=== PATIENT | female | born 1985 | race Caucasian/White ===

== ENCOUNTER 2022-05-26 15:06 | Outpatient (CLI) | payer BC, SELFPAY ==
[2022-05-26 18:54] LABS: Chlamydia DNA Amplified* NOT DETECTED (No Detected); GC DNA Amplified* NOT DETECTED (No Detected)
== END 2022-05-26 15:07 | disposition home or self-care (01) ==
PROVIDERS: PCP Obstetrics & Gynecology; Visit Provider Advanced Practice Midwife
DX: Z34.93 Encounter for supervision of normal pregnancy, unspecified, third trimester (principal); R30.9 Painful micturition, unspecified; Z3A.29 29 weeks gestation of pregnancy
CPT/HCPCS: 87086; 87186; 87491; 87591

== ENCOUNTER 2022-06-01 10:53 | Outpatient (CLI) | payer BC, SELFPAY ==
--- OUTSIDE RECORDS SUMMARY | 2022-06-01 10:56 | XMS_ITS | Encounter Summary ---
:1985 Author Organization [employer] Address [address] [facility] [place] [address] Care Team Providers Name Role Phone Roselyn Marroquin PA-C Primary Care Provider Reason for Visit Reason Comments ROUTINE HEALTH MAINTENANCE Encounter Details Date Type Department Care Team Description 12/06/2017 Office Visit [facility] Juaquin Corona Well ad ult exam (Primary Dx); Medicine Pap smear of cervix reminder not needed forever; [id number]. [address] [address] Tinea versicolor; [place], [place] Tobacco abuse [phone] [phone] Social History Tobacco Use Types Packs/Day Years Used Date Smoking Tobacco: Every Day Cigarettes 0.5 Smokeless Tobacco: Never Alcohol Use Standard Drinks/Week Comments Yes 1 (1 standard drink = 0.6 oz pure alcoho l) 1 monthly Alcohol Habits Answer Date Recorded How often do you have a drink containing alcohol? Not asked How many drinks containing alcohol do you have on a typical Not asked day when you are drinking? How often do you have six or more drinks on one occasion? No t asked Comment: 1 monthly 06/10/2016 Sex Assigned at Date Recorded Not on file documented as of this encounter Last Filed Vital Signs Vital Sign Reading Time Taken Comments Blood Pressure 110/62 12/06/2017 9:54 AM TRADE SPECIALIST Pulse 88 12/06/2017 9:54 AM TRADE SPECIALIST Temperature - - Respiratory Rate - - Oxygen Saturation - - Inhaled Oxygen Concentration - - Weight 55.4 kg (122 lb 1.6 oz) 12/06/2017 9:54 AM TRADE SPECIALIST Height 165.7 cm (5' 5.25) 12/06/2017 9:54 AM TRADE SPECIALIST Body Mass Index 20.16 12/06/2017 9:54 AM TRADE SPECIALIST documented in this encounter Progress Notes Sonia Alexander RN - 12/19/2017 12:12 PM CST See telephone encounter initiated 12/19/2017 to notify patient of results. E SPECIALIST Juaquin Corona MD - 12/06/2017 10:00 AM CST Subjective: Betty Tai is a 32 y.o. female and is here for a comprehensive physical exam. The patient reports no problems History: Regular, interested in becoming . Patient's medications, allergies, past medical, surgical, social and family histories were reviewed and updated as appropriate. Do you take any herbs or supplements that were not prescribed by a doctor? no Are you taking calcium supplements? no Are you taking aspirin daily? no Review of Systems Do you have pain that bothers you in your daily life? no A comprehensive review of systems was negative. Objective: General Appearance: Alert, cooperative, no distress, appears stated age Head: Normocephalic, without obvious abnormality, atraumatic Eyes: PERRL, conjunctiva/corneas clear, EOM's intact, fundi benign, both eyes Ears: Normal TM's and external ear canals, both ears Nose: Nares normal, septum midline, mucosa normal, no drainage or sinus tenderness Throat: Lips, mucosa, and tongue normal; teeth and gums normal Neck: Supple, symmetrical, trachea midline, no adenopathy; thyroid: no enlargement/tenderness/nodules; no carotid bruit or JVD Back: Symmetric, no curvature, ROM normal, no CVA tenderness Lungs: Clear to auscultation bilaterally, respirations unlabored Chest Wall: No tenderness or deformity Heart: Regular rate and rhythm, S1 and S2 normal, no murmur, rub or gallop Abdomen: Soft, non-tender, bowel sounds active all four quadrants, no masses, no organomegaly Genitalia: Normal female without lesion, discharge or tenderness. Nurse present for entire exam and pap. Extremities: Extremities normal, atraumatic, no cyanosis or edema Pulses: 2+ and symmetric all extremities Skin: Skin color, texture, turgor normal, tinea versicolor noted. Lymph nodes: Cervical, supraclavicular, and axillary nodes normal Neurologic: CNII-XII intact, normal strength, sensation and reflexes throughout Assessment: Healthy female exam. Plan: 1. ICD-10-CM 1. Well adult exam Z00.00 Glucose Lipid Panel - LDLD If Trig High HPV with 16 18 Genotyping Pap Smear 2. Pap smear of cervix reminder not needed forever Z53.8 Pap Test Order 3. Tinea versicolor B36.0 fluconazole (DIFLUCAN) 150 MG tablet 4. Tobacco abuse ([facility]) Z72.0 nicotine (NICODERMCQ) 14 MG/24HR patch 2. Patient Counseling: --Nutrition: Stressed importance of moderation in sodium/caffeine intake, saturated fat and cholesterol, caloric balance, sufficient intake of fresh fruits, vegetables, fiber, calcium, iron, and 1 mg of folate supplement per day (for females capable of ). --Discussed the issue of estrogen replacement, calcium supplement, and the daily use of baby aspirin. --Exercise: Stressed the importance of regular exercise. --Substance Abuse: Discussed cessation/primary prevention of tobacco, alcohol, or other drug use; driving or other dangerous activities under the influence; availability of treatment for abuse. --Sexuality: Discussed sexually transmitted diseases, partner selection, use of condoms, avoidance of unintended and contraceptive alternatives. --Injury prevention: Discussed safety belts, safety helmets, smoke detector, smoking near bedding orupholstery. --Dental health: Discussed importance of regular tooth brushing, flossing, and dental visits. --Immunizations reviewed. --Discussed benefits of screening colonoscopy. --After hours service discussed with patient 3. Follow up in one year Juaquin Corona MD 9:13 AM 12/07/2017 E SPECIALIST documented in this encounter Plan of Treatment Not on filedocumented as of this encounter Procedures Procedure Name Priority Date/Time Associated Comments Diagnosis PAP TEST ORDER Routine 12/06/2017 10:26 AM Pap smear of cervix Results for this TRADE SPECIALIST reminder not needed procedur e are in forever the results section. HPV WITH 16 18 Routine 12/06/2017 10:26 AM Well adult exam Res ults for this GENOTYPING, TRADE SPECIALIST procedure are i n CERVICAL/ENDOCERVICA the res ults L section. ANATOMICAL PATH Routine 12/06/2017 10:26 AM Well adult exam Re sults for this LIQUID BASED TRADE SPECIALIST procedure are i n the results section. documented in this encounter Results Pap Smear (12/06/2017 10:26 AM TRADE SPECIALIST) Specimen (Source) Anatomical Collection Method Collection Time Re ceived Time Location / / Volume Laterality 12/06/2017 10:26 AM TRADE SPECIALIST Narrative PN SOFT - 12/16/2017 6:26 PM TRADE SPECIALIST FINAL GYNECOLOGICAL CYTOLOGY REPORT Pathology #: [id number] ?Date Obtained: 12/06/2017 ? Date Received: 12/07/2017 INTERPRETATION/RESULTS: Atypical squamous cells, cannot exclude high grade squamous intraepithelial lesion (ASC-H). SPECIMEN ADEQUACY: Satisfactory for Evaluation. ??Endocervi eusebio cells/transformation zone component present. Verified on 12/16/2017 ??by HENRIQUE BUENROSTRO MD (electronic signature) CLINICAL NOTES: ?Abnormal bleeding: No, LMP: [id number], Menstrual status: None ?Apply, Current form of therapy: None apply LIQUID BASED PAP SMEAR SPECIMEN TYPE: ?ROUTINE CERVICAL PAP TEST PLEASE NOTE: The pap smear is a screening test design ed to aid in the detection of cervical cancer and its pre cursor lesions. It is not a diagnostic procedure and kristy uld not be used as the sole means of detecting cervical cancer. Both false-positive and false-negative report s may occur. Performed at [facility], [address] [place] [address] Juaquin Corona MD LAB_1 Performing Organization Address City/State/ZIP Code Phon e Number PN SOFT [address] [place] [address] [phone] (ABNORMAL) HPV with 16 18 Genotyping (12/06/2017 10:26 AM TRADE SPECIALIST) [facility] gist Method Time Signature HPV High Risk Not Detected PN SOFT 16 HPV High Risk Not Detected PN SOFT 18 Other HPV High Detected (A) PN SOFT Risk Not 16/18 Comment: ........................................ ................................. The Manpreet HPV Test is a qualitative in v itro test for the detection of Human Papillomavirus in [facility] patient specimens. ??The test utilizes amplifica tion of target DNA by Polymerase Chain Reaction (PCR) and n ucleic acid hybridization for the detection of 14 hi gh-risk (HR) HPV types. The assay tests for high risk typ es (16, 18, 31, 33, 35, 39, 45, 51, 52, 56, 58, 59, 66 and 6 8). NOTE: This test was developed and its pe rformance characteristics determined by [facility]. It has not been cleared or approved by [facility]. The laboratory is regulated under CLIA as qualified to perform high-complexity testing. This test is used for clinical purposes. It should not be regarded as investigational or fo r research. Specimen Anatomical Collection Method Collection Time Receive d Time (Source) Location / / Volume Laterality 12/06/2017 10:26 12/06/2017 AM TRADE SPECIALIST 10:26 AM TRADE SPECIALIST Narrative PN SOFT - 12/11/2017 1:11 PM TRADE SPECIALIST Performed at [place] [id number] CLIA number [id number] Juaquin Corona MD LAB_1 Performing Organization Address City/State/ZIP Code Phon e Number PN SOFT [address] [place] [address] Pap Test Order (12/06/2017 10:26 AM TRADE SPECIALIST) Analysis [facility] Time Signature Pap Smear Collected PN SOFT Monolayer tracking test Specimen Anatomical Collection Method Collection Time Receive d Time (Source) Location / / Volume Laterality 12/06/2017 10:26 12/07/2017 4:41 AM TRADE SPECIALIST AM TRADE SPECIALIST Narrative PN SOFT - 12/06/2017 10:27 AM TRADE SPECIALIST Performed at [address] [address] CLIA number [id number] Juaquin Corona MD LAB_1 Performing Organization Address City/[facility]/ZIP [facility] Phon e Number PN SOFT [address] [place] [address] Lipid Panel - LDLD If Trig High (12/06/2017) Analysis Performed At Patho logist Time Signature Cholesterol 139 0 - 199 PN SOFT mg/dL Triglycerides 83 4 - 149 PN SOFT mg/dL HDL Cholesterol 52 >39 mg/dL PN SOFT Cholesterol/HDL 2.7 PN SOFT Ratio Screen LDL Calculated 70 19 - 130 PN SOFT mg/dL Non HDL Chol, Calc 87 0 - 130 PN SOFT mg/dL Length Of Fast 10.0 PN SOFT Specimen (Source) Anatomical Collection Method Collection Time Re ceived Time Location / / Volume Laterality 12/06/2017 12/06/2017 11:2 5 AM TRADE SPECIALIST Narrative PN SOFT - 12/06/2017 12:35 PM TRADE SPECIALIST Performed at [facility], [address] [place] [id number] CLIA number [id number] Juaquin Corona MD LAB_1 Performing Organization Address [facility] Phon e Number PN SOFT [address] [place] [address] Glucose (12/06/2017) P athologist Signature Lab Glucose 96 70 - 100 PN SOFT mg/dL Comment: The stated glucose range is for the fast ing state. Non-fasting glucose range is 70-180 mg/d L Specimen (Source) Anatomical Collection Method Collection Time Re ceived Time Location / / Volume Laterality 12/06/2017 12/06/2017 11:2 5 AM TRADE SPECIALIST Narrative PN SOFT - 12/06/2017 12:35 PM TRADE SPECIALIST Performed at [facility], [address] [place] [id number] CLIA number [id number] Juaquin Corona MD LAB_1 Performing Organization Address [facility]/ZIP Code Phon e Number PN SOFT [address] [place] [address] documented in this encounter Visit Diagnoses Diagnosis Well adult exam - Primary Routine general medical examination at a health care facility Pap smear of cervix reminder not needed forever Procedure not carried out for other reas ons Tinea versicolor Pityriasis versicolor Tobacco abuse ([facility]) Tobacco use disorder Well adult exam Routine general medical examination at a health care facility documented in this encounter Care Teams Prop Making Supervisor Relationship Specialty Start Date End Date Roselyn Marroquin PA-C PCP - General Physician Ap Operator 08/09/16 [address] [place] [address] documented as of this encounter
--- OUTSIDE RECORDS SUMMARY | 2022-06-01 10:56 | XMS_ITS | Encounter Summary ---
:1985 Author Organization [facility] Address [address], [place] [address] Care Team Providers Name Role Phone Roselyn Marroquin PA-C Primary Care Provider Reason for Visit Reason Onset Date Comments RESULTS, TEST 08/17/2016 Encounter Details Date Type Department Care Team Description 08/17/2016 Telephone [facility] Roselyn Michael PA-C RESULTS, TEST [address] [address] [place] [address] [place] [address] [phone] (Wo rk) Social History Tobacco Use Types Packs/Day Years Used Date Smoking Tobacco: Every Day Cigarettes 0.5 Alcohol Use Standard Drinks/Week Comments Yes 1 [...] on file documented as of this encounter Nursing Notes Roselyn Marroquin PA-C - 08/30/2016 11:43 AM CST Thanks for the GLENDY. HRK Kellee Hill RN - 08/30/2016 11:20 AM CST Called pt and gave her test results. The patient indicates understanding of these issues and agrees with the plan. Future Appointments Date Time Provider Department Center 09/05/2016 1:00 PM Igor Kaufman MD [facility] PN POE FR CA MIXER OPERATOR Kellee Ramey, RN - 08/17/2016 10:59 AM CDT Pt had appt with Kylah on 08/09/16. Called pt with pap results of ASCUS, HPV+ other, colp indicated. Attempted to call pt, no vmail set up. Will try again documented in this encounter Plan of Treatment Not on filedocumented as of this encounter Visit Diagnoses Not on filedocumented in this encounter Care Teams Bath House Attendant Relationship Specialty Start Date End Date Roselyn Marroquin PA-C PCP - General Physician Crane Crew Supervisor 08/09/16 [address] [place] [address] documented as of this encounter
--- OUTSIDE RECORDS SUMMARY | 2022-06-01 10:56 | XMS_ITS | Encounter Summary ---
:1985 Author Organization [facility] Address [address] [place] [address] Care Team Providers Name Role Phone LopezRoselyn STU Primary Care Provider Reason for Referral Procedure/Equipment (Routine) - Incomplete Specialty Diagnoses / Procedures Referred By Contact Refer red To Contact Diagnoses Acute left ankle pain Aung Saeed PA-C Procedures XR Foot 3+ Views/Ankle 2 Views Series Lt [address] [facility] [address] [place] [address] Referral ID Status Reason Start Date Expiration Date Visits V isits Requested Authorized [id number] Incomplete 05/29/2018 08/28/2019 1 1 Reason for Visit Reason Comments ANKLE PAIN Encounter Details Date Type Department Care Team Description 05/29/2018 Hospital Encounter [place] [facility] Aung Saeed Ac dustin left ankle pain; Esteban Oosrio PA-C Sprain of left ankle, unspecified ligame nt, initial encounter [address] [facility] [address] [place] [address] E [phone] [place] [address] Social History Tobacco Use Types Packs/Day Years [...] Sign Reading Time Taken Comments Blood Pressure 121/81 05/29/2018 6:08 PM CDT Pulse 81 05/29/2018 6:08 PM CDT Temperature 36.8 ??C (98.2 ??F) 05/29/2018 6:08 PM CDT Respiratory Rate 16 05/29/2018 6:08 PM CDT Oxygen Saturation 99% 05/29/2018 6:08 PM CDT Inhaled Oxygen Concentration - - Weight - - Height - - Body Mass Index - - documented in this encounter Medications at Time of Discharge Medication Sig Dispensed Refills Start Date End Date nicotine (NICODERMCQ) 14 Apply 1 Patch to 30 Each 0 12/0608/28/2018 MG/24HR patchIndications: skin every 24 hours. Tobacco abuse ([facility]) . documented as of this encounter ED Notes Aung Saeed PA-C - 05/29/2018 12:00 PM CDT NAME: TELLO TERRELL MR#: [id number] CSN: [id number] AUTHENTICATING CLINICIAN: Aung Saeed PA-C CONFIRM #: [id number] LOC: 520 URGENT CARE PROGRESS NOTE DATE OF VISIT: 05/29/2018 : 1985 SUBJECTIVE: This is a 32-year-old female, presents to clinic today complaining of left ankle pain. She states she originally injured it about a month ago. She was stepping off a curb and rolled it. She states since that time, she feels like she has re- injured it numerous times. Today, she was moving a piece of furniture and it seemed to give out. She is able to ambulate, but it hurts. 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 She denies previous injury. REVIEW OF SYSTEMS: Remainder of review of systems negative. ALLERGIES: None. MEDICATIONS: None. PAST MEDICAL HISTORY: Noncontributory. SOCIAL HISTORY: She is currently a daily smoker. OBJECTIVE: VITAL SIGNS: Temp is 36.8, pulse 81, respirations are 16, blood pressure 121/81. O2 sats are 99% on room air. GENERAL: This is a 32-year-old well-developed, well-nourished female, in no acute distress. She is alert and oriented to person, place, and time. HEENT: Head is normocephalic, atraumatic. Eyes are PERRL. LUNGS: Clear to auscultation in all ramirez. No wheezes, rales, or rhonchi. HEART: Regular rate and rhythm. No murmurs, rubs, or gallops. EXTREMITIES: Examination of the patient's left ankle reveals some mild swelling laterally. She does have good range of motion, but there is some pain with movement. Pulses are intact. Reflexes are intact. IMAGING: An x-ray of the patient's left foot and ankle was obtained, which showed no signs of fracture or dislocation. ASSESSMENT: 1.Left ankle sprain. 2.Left ankle pain. PLAN: Patient was placed in an ankle air cast which she will wear for the next couple weeks. She will rest, ice, and elevate her ankle as needed. She does have some crutches at home she can use if needed. Otherwise, she will follow up with her primary provider with any ongoing or worsening of her symptoms. SSK:JACOBY C: CONFIRM #: [id number] documented in this encounter Plan of Treatment Not on filedocumented as of this encounter Procedures Procedure Name Priority Date/Time Associated Diagnosis Comme nts XR FOOT 3+ STAT 05/29/2018 6:29 PM Acute left ankle Resul ts for this VIEWS/ANKLE 2 VIEWS CDT pain procedur e are in SERIES LT the results section. documented in this encounter Results XR Foot 3+ Views/Ankle 2 Views Series Lt (05/29/2018 6:29 PM CDT) Anatomical Region Laterality Modality Lower Extremity, Foot, Ankle Digital Rad iography Specimen (Source) Anatomical Collection Method Collection Time Re ceived Time Location / / Volume Laterality 05/29/2018 6:21 PM CDT Narrative 05/29/2018 6:43 PM CDT COMPARISON: ??None. FINDINGS: ??5 views of the left foot and ankle. No acute bony abnormalities. Joint spaces are intact. Procedure Note Dave Meza MD - 05/29/2018 COMPARISON: None. FINDINGS: 5 views of the left foot and a nkle. No acute bony abnormalities. Joint spaces are intact. Authorizing Provider Result Elisha LYNCH documented in this encounter Visit Diagnoses Diagnosis Acute left ankle pain Sprain of left ankle, unspecified ligame nt, initial encounter Triage Assessment Note - Albert Gross RN - 05/29/2018 6:05 PM CDT Pt presents with left ankle pain. Pt states original injury was about a month ago, she rolled it while stepping off of a curve. States she has re injured it a couple of times in the past month. Today while moving a dresser her ankle gave out. documented in this encounter Care Teams Manager Talent Acquisition Relationship Specialty Start Date End Date Roselyn Marroquin PA-C PCP - General Physician Animal Rides Manager 08/09/16 [address] [place] [address] documented as of this encounter
--- OUTSIDE RECORDS SUMMARY | 2022-06-01 10:56 | XMS_ITS | Encounter Summary ---
:1985 Author Organization [facility] Address [address] [place] [address] Care Team Providers Name Role Phone Roselyn Marroquin PA-C Primary Care Provider Encounter Details Date Type Department Care Team Description 08/09/2016 Lab Visit [facility] Encounter for screening for lipoid disorders; [address] Screening for diabetes donato keller; [place] [address] Dysmenorrhea; [phone] Metrorrhagia Social History Tobacco Use Types Packs/Day Years [...] on file documented as of this encounter Progress Notes Roselyn Marroquin PA-C - 08/11/2016 7:22 AM CDT Quick Note: Sent letter. HRK documented in this encounter Plan of Treatment Not on filedocumented as of this encounter Procedures Procedure Name Priority Date/Time Associated Diagnosis Comme nts TSH AND FREE T4 Routine 08/09/2016 2:27 PM Dysmenorrhea Results for this (FRT4 IF TSH CDT Metrorrhagia procedure are i n ABNORM) the results section. LIPID PANEL AND Routine 08/09/2016 2:27 PM Encounter for Resul ts for this DIRECT LDL(IF CDT screening for lipoid proced ure are in NEEDED) disorders the results section. COMPLETE BLOOD Routine 08/09/2016 2:27 PM Dysmenorrhea Results for this COUNT-NO DIFF CDT Metrorrhagia procedure are in the results section. GLUCOSE - FASTING > Routine 08/09/2016 2:27 PM Screening for R esults for this 8 HRS FASTING CDT diabetes mellitus procedure are in the results section. documented in this encounter Results TSH And Free T4 (FRT4 If TSH Abnorm) (08/09/2016 2:27 PM CDT) athologist Signature Thyroid 1.30 0.20 - PN SOFT Stimulating 4.50 Hormone uIU/mL Specimen Anatomical Collection Method Collection Time Receive d Time (Source) Location / / Volume Laterality 08/09/2016 2:27 PM 6 6:54 CDT PM CDT Narrative PN SOFT - 08/09/2016 11:28 PM CDT Performed at [place] [address] [place] [address] CLIA number [id number] Roselyn Marroquin PA-C LAB_1 Performing Organization Address City/State/ZIP Code Phon e Number PN SOFT [address] [place] [address] [phone] (ABNORMAL) CBC - Complete Blood Count-No Diff (08/09/2016 2:27 PM CDT) [facility] gist Method Time Signature White Blood Cell 8.8 3.8 - 11.0 PN SOFT Count k/cmm Red Blood Cell 4.63 3.70 - PN SOFT Count 5.20 m/cmm Hemoglobin 15.9 (H) 11.8 - PN SOFT 15.5 g/dL Hematocrit 45.5 35.0 - PN SOFT 46.0 % Mean Corpuscular 98.3 80.0 - PN SOFT Volume 100.0 fL RDW 12.0 11.0 - PN SOFT 15.0 % Platelet Count 175 140 - 450 PN SOFT k/cmm Specimen Anatomical Collection Method Collection Time Receive d Time (Source) Location / / Volume Laterality 08/09/2016 2:27 PM 6 2:27 CDT PM CDT Narrative PN SOFT - 08/09/2016 2:34 PM CDT Performed at [facility], [address] [place] [address] CLIA number [id number] Roselyn Marroquin PA-C LAB_1 Performing Organization Address City/[facility]/ZIP Code Phon e Number PN SOFT [address] [place] [address] Glucose (08/09/2016 2:27 PM CDT) P athologist Signature Lab Glucose 91 60 - 100 PN SOFT mg/dL Specimen Anatomical Collection Method Collection Time Receive d Time (Source) Location / / Volume Laterality 08/09/2016 2:27 PM 6 5:08 CDT PM CDT Narrative PN SOFT - 08/09/2016 5:27 PM CDT Performed at [facility], [address] [place] [address] CLIA number [id number] Roselyn Marroquin PA-C LAB_1 Performing Organization Address [facility] Phon e Number PN SOFT [address] [place] [address] Lipid Panel - LDLD If Trig High (08/09/2016 2:27 PM CDT) Analysis Performed At Patho logist Time Signature Cholesterol 135 0 - 199 PN SOFT mg/dL Triglycerides 95 4 - 149 PN SOFT mg/dL HDL Cholesterol 47 >39 mg/dL PN SOFT Cholesterol/HDL 2.9 PN SOFT Ratio Screen LDL Calculated 69 19 - 130 PN SOFT mg/dL Length Of Fast 15.0 PN SOFT Specimen Anatomical Collection Method Collection Time Receive d Time (Source) Location / / Volume Laterality 08/09/2016 2:27 PM 6 5:08 CDT PM CDT Narrative PN SOFT - 08/09/2016 5:27 PM CDT Performed at [facility], [address] [place] [address] CLIA number [id number] Roselyn Marroquin PA-C LAB_1 Performing Organization Address City/[facility]/ZIP Code Phon e Number PN SOFT [address] [place] [address] [phone] documented in this encounter Visit Diagnoses Diagnosis Encounter for screening for lipoid disor ders Screening for lipoid disorders Screening for diabetes mellitus Dysmenorrhea Metrorrhagia documented in this encounter Care Teams Law Librarian Relationship Specialty Start Date End Date Roselyn Marroquin PA-C PCP - General Physician Marketing Research Analyst 08/09/16 [address] [place] [address] documented as of this encounter
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
--- OUTSIDE RECORDS SUMMARY | 2022-06-01 10:56 | XMS_ITS | Encounter Summary ---
:1985 Author Organization [facility] Address [address] [place] [address] Care Team Providers Name Role Phone Roselyn Marroquin PA-C Primary Care Provider Encounter Details Date Type Department Care Team Description 09/26/2019 Lab Visit [facility] Dysuria; [address] Hematuria, [place] [address] Social History Tobacco Use Types Packs/Day Years [...] on file documented as of this encounter Plan of Treatment Not on filedocumented as of this encounter Procedures Procedure Name Priority Date/Time Associated Diagnosis Comme nts URINE CULTURE Routine 09/26/2019 3:48 PM Dysuria Results for this FLOOR PLAN ADJUSTER Hematuria, procedure are i n microscopic the results section. AUTOMATED URINALYSIS Routine 09/26/2019 3:48 PM Dysuria R esults for this DIPSTICK POCT FLOOR PLAN ADJUSTER procedure are in the results section. documented in this encounter Results (ABNORMAL) Urine Culture (09/26/2019 3:48 PM FLOOR PLAN ADJUSTER) Component Value Ref Test Method Analysis Performed Patholog ist Range Time At Signature Urine Growth (A) 09/28/2019 [facility] Culture 10:34 AM HOSPITAL FLOOR PLAN ADJUSTER Urine 10,000 - 50,000 GIANLUCA 09/28/2019 [facility] Culture CFU/mL SENSITIVITY 10:34 AM [facility] Staphylococcus FLOOR PLAN ADJUSTER saprophyticus Specimen Anatomical Collection Method Collection Time Receive d Time (Source) Location / / Volume Laterality Urine URINE SPECIMEN Non-blood 09/26/2019 3:48 PM 019 3:48 COLLECTION, CLEAN Collection / FLOOR PLAN ADJUSTER PM FLOOR PLAN ADJUSTER CATCH / Unknown Unknown [facility] - 09/28/2019 10:[address] Routine testing of urine isolates of Sta phylococcus saprophyticus is not advised, because infections respond to concentrat ions achieved in urine of antimicrobial agents commonly used to treat acute, unc omplicated UTIs (eg, nitrofurantoin, trimethoprim ?? sulfamethoxazole, or a f luoroquinolone). Percy Gutierrez PA-C LAB_1 Performing Organization Address City/State/ZIP Code Phon e Number [address] [address] (ABNORMAL) Urine Dipstick NPT (09/26/2019 3:48 PM FLOOR PLAN ADJUSTER) [facility] gist Method Time Signature Glucose Urine Negative Negative 09/26/2019 [facility] Qual (mg/dL) 3:55 PM FLOOR PLAN ADJUSTER Bilirubin Negative Negative 09/26/2019 [facility] Urine 3:55 PM FLOOR PLAN ADJUSTER Ketones, Negative Negative 09/26/2019 [facility] Urine (mg/dL) 3:55 PM FLOOR PLAN ADJUSTER Specific 1.015 1.005 - 09/26/2019 [facility] [place], 1.030 3:55 PM FLOOR PLAN ADJUSTER Urine Blood, Urine Trace Neg/Trace 09/26/2019 [facility] 3:55 PM FLOOR PLAN ADJUSTER PH Urine 7.0 5.0 - 8.0 09/26/2019 [facility] 3:55 PM FLOOR PLAN ADJUSTER Protein, Trace Neg/Trace 09/26/2019 [facility] Urine Qual 3:55 PM FLOOR PLAN ADJUSTER (mg/dL) Urobilinogen, 0.2 <2.0 09/26/2019 [facility] Urine (EU/dL) 3:55 PM FLOOR PLAN ADJUSTER Nitrite Urine Negative Negative 09/26/2019 [facility] 3:55 PM FLOOR PLAN ADJUSTER Leukocyte Large (A) Negative 09/26/2019 [facility] Est. 3:55 PM FLOOR PLAN ADJUSTER Urine Color Yellow Straw-Yellow 09/26/2019 [facility] 3:55 PM FLOOR PLAN ADJUSTER Urine Clarity Hazy (A) Clear 09/26/2019 [facility] 3:55 PM FLOOR PLAN ADJUSTER Specimen Anatomical Collection Method Collection Time Receive d Time (Source) Location / / Volume Laterality Urine URINE SPECIMEN Non-blood 09/26/2019 3:48 PM 019 3:48 COLLECTION, CLEAN Collection / FLOOR PLAN ADJUSTER PM FLOOR PLAN ADJUSTER CATCH / Unknown Unknown Percy Gutierrez PA-C LAB_1 Performing Organization Address City/State/ZIP Code Phon e Number [facility] [address] [place] [phone] [facility] [address] [place] [address] [address] [phone] documented in this encounter Visit Diagnoses Diagnosis Dysuria Hematuria, microscopic Microscopic hematuria documented in this encounter Care Teams Director Clinical Data Relationship Specialty Start Date End Date Roselyn Marroquin PA-C PCP - General Physician Rib Knitter 08/09/16 [address] [place] [address] documented as of this encounter
--- OUTSIDE RECORDS SUMMARY | 2022-06-01 10:56 | XMS_ITS | Encounter Summary ---
:1984 Author Organization [facility] Address [address], [place] [address] Care Team Providers Name Role Phone Roselyn Marroquin PA-C Primary Care Provider Encounter Details Date Type Department Care Team Description 12/06/2017 Lab Visit [facility] Well adult exam [id number] [place] [address] Social History Tobacco Use [...] documented as of this encounter Progress Notes Juaquin Corona MD - 12/06/2017 1:00 PM CST Letter sent. ALL STRIPPER HELPER documented in this encounter Plan of Treatment Not on filedocumented as of this encounter Procedures Procedure Name Priority Date/Time Associated Diagnosis Comme nts LIPID PANEL AND DIRECT Routine 12/06/2017 Well adult exam Re sults for this LDL(IF NEEDED) procedure are in the results section . GLUCOSE - FASTING > 8 Routine 12/06/2017 Well adult exam Res ults for this HRS FASTING procedure are i n the results section . documented in this encounter Results Lipid Panel - LDLD If Trig High [...] Volume Laterality 12/06/2017 12/06/2017 11:2 5 AM DRYWALL STRIPPER HELPER Narrative PN SOFT - 12/06/2017 12:35 PM DRYWALL STRIPPER HELPER Performed at [facility] [address] [place] [address] CLIA number [id number] Juaquin Corona MD LAB_1 Performing Organization Address City/[facility] Phon e Number PN SOFT [address] [place] [address] Glucose (12/06/2017) P athologist Signature Lab Glucose 96 70 - 100 PN SOFT mg/dL Comment: The stated glucose range is for the fast ing state. Non-fasting glucose range is 70-180 mg/d L Specimen (Source) Anatomical Collection Method Collection Time Re ceived Time Location / / Volume Laterality 12/06/2017 12/06/2017 11:2 5 AM DRYWALL STRIPPER HELPER Narrative PN SOFT - 12/06/2017 12:35 PM DRYWALL STRIPPER HELPER Performed at [facility] [address] [place] [address] CLIA number [id number] Juaquin Corona MD LAB_1 Performing Organization Address City/[facility] Phon e Number PN SOFT [address] [place] [address] documented in this encounter Visit Diagnoses Diagnosis Well adult exam Routine general medical examination at a health care facility documented in this encounter Care Teams Hat Blocking Operator Relationship Specialty Start Date End Date Roselyn Marroquin PA-C PCP - General Physician Seismograph Shooter 08/09/16 [address] [place] [address] documented as of this encounter
--- OUTSIDE RECORDS SUMMARY | 2022-06-01 10:56 | XMS_ITS | Encounter Summary ---
:1985 Author Organization [employer] Address [address], [place] [address] Care Team Providers Name Role Phone LopezRoselyn Shane PERAZA Primary Care Provider Reason for Visit Reason Comments Dental Conversion Legacy EDR to Oxly convers ion Encounter Details Date Type Department Care Team Description 03/29/2017 Dental Conversion [facility] Fatmata Sánchez, Shell Dent[facility] [address] [facility] [address] [place], [place] [address] [place], [place] [phone] [address] Social History Tobacco Use Types Packs/Day Years [...] on file documented as of this encounter Miscellaneous Notes Miscellaneous - Interface, In Edr Dental Conversion - 02/06/2017 12:00 AM CDT 02/06/2017: Provider Portal Checked: checked Miscellaneous - Interface, In Edr Dental Conversion - 01/03/2017 12:00 AM CDT 01/03/2017: Provider Portal Checked: checked documented in this encounter Plan of Treatment Not on filedocumented as of this encounter Visit Diagnoses Not on filedocumented in this encounter Care Teams Annealing Torch Operator Relationship Specialty Start Date End Date Roselyn Marroquin PA-C PCP - General Physician Director Of Email Marketing 08/09/16 [address] [place] [address] documented as of this encounter
--- OUTSIDE RECORDS SUMMARY | 2022-06-01 10:56 | XMS_ITS | Encounter Summary ---
:1985 Author Organization [facility] Address [address] [place] [address] Care Team Providers Name Role Phone LopezRoselyn Shane PERAZA Primary Care Provider Reason for Visit Reason Comments PAP,ABNORMAL ASC-H, HPV+ non 16-18 Encounter Details Date Type Department Care Team Description 12/19/2017 Telephone Cervical Cancer Christine Johnson MD PAP,ABNORMAL (ASC-H, Screening and [address] HPV+ non 16-18) Management [facility] 5th [address] [place] [id number] [place] [address] [phone] Social History Tobacco Use Types Packs/Day Years [...] documented as of this encounter Nursing Notes Sonia Alexander RN - 12/19/2017 12:03 PM CST Pap screening on 12/06/[address] Corona at [facility] Pap result(s): ASC-H, HPV+ (non 16/18), hx abnormal Colposcopy recommended per guidelines. Informed patient of results. Scheduled colposcopy. Patient given verbal preparation instructions forprocedure. Sent follow up [employer] message. Future Appointments Date Time Provider Department Center 12/25/2017 1:00 PM Igor Kaufman MD [facility] PN POE FR Routing to provider as an FYI. [employer] documented in this encounter Plan of Treatment Not on filedocumented as of this encounter Visit Diagnoses Not on filedocumented in this encounter Care Teams Hydration Plant Operator Relationship Specialty Start Date End Date Roselyn Marroquin PA-C PCP - General Physician Deputy District Customs Director 08/09/16 [address] [place] [address] documented as of this encounter
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
--- OUTSIDE RECORDS SUMMARY | 2022-06-01 10:56 | XMS_ITS | Encounter Summary ---
:1985 Author Organization [employer] Address [address] [address] Care Team Providers Name Role Phone LopezVinnyRoselyndonald Lynn PA-C Primary Care Provider Reason for Visit Reason Comments Procedure colposcopy Encounter Details Date Type Department Care Team Description 12/25/2017 Procedure Visit [facility] Igor Kaufman Procedure Services-REPRODUCTION ORDER PROCESSOR MD Tucker (colposcopy) [address], [address] [place] [address] [place], [place] [phone] (Wo rk) [address] [phone] Social History Tobacco Use Types Packs/Day Years [...] documented as of this encounter Progress Notes Igor Kaufman - 12/27/2017 1:47 PM CST Patient notified. Pap/HPV advised in 1 year ER TENDER Igor Kaufman - 12/25/2017 1:00 PM CST Colposcopy Procedure Note Indications: Pap smear 1 months ago showed: ASC cannot exclude high grade lesion (ASCH). The prior pap showed ASCUS with POSITIVE high risk HPV. Both showed HPV 16/18 neg and other HPV+. Prior cervical/vaginal disease: Coplo and bx in 2016 showed no dysplasia. Prior cervical treatment: no treatment. Procedure Details The risks and benefits of the procedure and Verbal informed consent obtained. Speculum placed in vagina and excellent visualization of cervix achieved, cervix swabbed x 3 with acetic acid solution. Findings: Cervix: no visible lesions, no mosaicism, no punctation and no abnormal vasculature; endocervical curettage performed. Vaginal inspection: normal without visible lesions. Vulvar colposcopy: normal mucosa without lesions. Specimens: ECC Complications: none. Plan: Specimens labelled and sent to Pathology. Will base further treatment on Pathology findings. Post biopsy instructions given to patient. ER TENDER documented in this encounter Plan of Treatment Not on filedocumented as of this encounter Procedures Procedure Name Priority Date/Time Associated Comments Diagnosis CLINIC OBTAINED Routine 12/25/2017 1:27 PM Pap smear of cervix Results for this ANATOMICAL PATHOLOGY BEATER TENDER with ASCUS, cannot p rocedure are in exclude HGSIL the results section. SURGICAL PATH, [place] Routine 12/25/2017 6:00 AM [facility] procedure are i n the results section. documented in this encounter Results Clinic Obtained Tissue [TIS] (12/25/2017 1:27 PM BEATER TENDER) athologist Signature CLINIC Received PN SOFT OBTAINED TISSUE Specimen Anatomical Collection Method Collection Time Receive d Time (Source) Location / / Volume Laterality 12/25/2017 1:27 PM 8 6:26 BEATER TENDER PM BEATER TENDER Narrative PN SOFT - 12/25/2017 6:52 PM BEATER TENDER Performed at [facility], [address] [place] [address] CLIA number [id number] Igor Kaufman MD LAB_1 Performing Organization Address City/State/ZIP Code Phon e Number PN SOFT [address] [place] [address] [phone] Pathology Report (12/25/2017 6:00 AM BEATER TENDER) [facility] gist Method Time Signature Path: FINAL SURGICAL PATHOLOGY REPORT PN SOFT Pathology #: [id number] ? Date Obtained: 12/25/2017 ?Date Received: 12/25/2017 DIAGNOSIS: Endocervix, curettage: -No dysplasia or malignancy identified. Comment: Additional tissue levels were examined. The most recent Pap from 12-06-17 (LL [id number]) was interpre griselda as ASC ?? -H and high-risk HPV positive. ??The Pap was reviewed wi th this ?? curettage. ??Continued follow-up per protocol is recomme nded. ?Lashonda HERZOG ? (electronic signatur e) ? 12/27/2017 ??12:2 8 CLINICAL NOTES: ASCUS Pap GROSS DESCRIPTION: Received in formalin labeled ECC is a 1.0 x 0.0 0.3 cm aggr egate of ?? neely-pink tissue admixed with blood-tinged mucous which i s filtered ?? and submitted in one cassette. ? LUNMA MICROSCOPIC DESCRIPTION: The microscopic examination has been performed. Performed at [facility], [address] [facility], [place] [address] Specimen Anatomical Collection Method Collection Time Receive d Time (Source) Location / / Volume Laterality OTHER / Unknown 12/25/2017 6:00 AM 2017 6:00 BEATER TENDER AM BEATER TENDER Igor Kaufman MD LAB_1 Performing Organization Address City/State/ZIP Code Phon e Number PN SOFT [address] [place] [address] documented in this encounter Visit Diagnoses Diagnosis Pap smear of cervix with ASCUS, cannot e xclude HGSIL - Primary Papanicolaou smear of cervix with atypic al squamous cells cannot exclude high grade squamous intraepithelial lesion (ASC-H) documented in this encounter Care Teams Tourist Agent Relationship Specialty Start Date End Date Roselyn Marroquin PA-C PCP - General Physician Manager Pool 08/09/16 [address] [place] [address] documented as of this encounter
--- OUTSIDE RECORDS SUMMARY | 2022-06-01 10:56 | XMS_ITS | Encounter Summary ---
:1985 Author Organization [facility] Address [address] [address] Care Team Providers Name Role Phone LopezVinnyRoselyndonald Lynn PA-C Primary Care Provider Encounter Details Date Type Department Care Team Description 08/09/2016 Lab Visit [facility] Urinary frequency [id number] [place] [address] Social History Tobacco Use [...] Name Priority Date/Time Associated Diagnosis Comme nts UR NPT HOLD FOR STAT 08/09/2016 1:39 PM Urinary frequency R esults for this CULTURE CDT procedure are i n the results section. documented in this encounter Results UR NPT Hold for Culture (08/09/2016 1:39 PM CDT) [facility] Method Time Signature Urine Type URINE:clean PN SOFT cat U BILI Negative Negative PN SOFT Blood Urine Negative Negative PN SOFT Glucose, Negative Neg-30 PN SOFT Qualitative U mg/dL Ketones Negative Negative PN SOFT Leukocyte Negative Negative PN SOFT Esterase Urine Nitrite Urine Negative Negative PN SOFT pH Urine 7.0 5.0 - 8.0 PN SOFT Protein Urine Negative Neg - Trace PN SOFT mg/dL U Specific 1.020 1.005 - PN SOFT [place] 1.030 Urobilinogen Negative Negative PN SOFT Urine Eu/dL Turbidity Clear Clear PN SOFT Color Yellow PN SOFT Specimen Anatomical Collection Method Collection Time Receive d Time (Source) Location / / Volume Laterality 08/09/2016 1:39 PM 6 1:39 CDT PM CDT Narrative PN SOFT - 08/09/2016 1:45 PM CDT Performed at [facility], [address] [place] [address] CLIA number [id number] Roselyn Marroquin PA-C LAB_1 Performing Organization Address City/State/ZIP Code Phon e Number PN SOFT [address] [place] [address] documented in this encounter Visit Diagnoses Diagnosis Urinary frequency documented in this encounter Care Teams Lime Supervisor Relationship Specialty Start Date End Date Roselyn Marroquin PA-C PCP - General Physician Grout Pump Operator 08/09/16 [address] [place] [address] documented as of this encounter
--- OUTSIDE RECORDS SUMMARY | 2022-06-01 10:56 | XMS_ITS | Clinical Summary ---
:1985 [facility] Address [address] [place] [address] Care Team Providers Name Role Phone Roselyn Marroquin PA-C Primary Care Provider Source Comments You are receiving this document as you are listed as the primary care provider,follow-up provider, or the patient has been referred to you for consultation.This is in compliance with the Medicare and Medicaid EHR Incentive Program,which states Providers who transition their patient to another setting of careor provider of care or refers their patient to another provider of care shouldprovide summarycare record for each transition of care or referral. [facility] Allergies No known active allergies Medications Medication Sig Dispensed Refills Start Date End Date Status ALBUterol sulfate HFA Inhale 1-2 Puffs 1 Inhaler 0 08/28/2018 Active 108 (90 Base) MCG/ACT every 4 hours as inhaler needed for Wheezing. Pharmacy may substitute albuterol HFA inhalers based on insurance pseudoephedrine Take 1-2 Tablets 24 Tablet 0 08/28/2018 Active (SUDAFED) 30 MG tablet by mouth every 6 hours as needed for Congestion. ciprofloxacin (CIPRO) Take 1 Tablet by 10 Tablet 0 09/26/2019 Active 500 MG mouth two times a tabletIndications: day. Dysuria, Hematuria, microscopic Active Problems Problem Noted Date Abnormal Pap smear of cervix 12/18/2017 Overview: [facility] Review: History: 2016: ASCUS HPV+ (non 16/18), colp neg 2018: ASC-H HPV+ (non 16/18), colp neg Plan, per ASCCP guidelines: co-test in 1 2 months (12/2018) Dysmenorrhea 08/09/2016 Tobacco abuse 01/04/2015 Immunizations Name Administration Dates Next Due DTP 03/12/1990, 10/29/1989, 03/03/1985, 1984, 1984 Flu Vac Preserv Free (3+yrs) 07/02/2012 HepB Adult (Engerix-B, 20+ yrs, 3 07/02/2012 dose series) Hib (ActHIB) 08/21/1986 Influenza IIV4 (Quadrivalent) 0.5mL 08/25/2020 (10184) MMR 03/02/1986 OPV, Trivalent (Orimune or tOPV) 03/12/1990, 10/29/1989, , 1984, 1984 TDAP (BOOSTRIX) 07/02/2012 Family History Medical History Relation Name Comments Heart Disease Father Age 48 No Known Problems Mother No Known Problems Brother 1 No Known Problems Brother 2 Cancer Maternal Grandfather Mouth cance r, age 60s. Cancer Maternal Grandmother Colon cance r in her 60s. Alzheimer's Paternal Grandfather No Known Problems Paternal Grandmother Relation Name Status Comments Father Mother Alive Brother 1 Alive Brother 2 Alive Maternal Grandfather Maternal Grandmother Paternal Grandfather Paternal Grandmother Alive Social History Tobacco Use Types Packs/Day Years Used Date Smoking Tobacco: Every Day Cigarettes 0.5 10 Smokeless Tobacco: Never Tobacco Cessation: Ready to Quit: No; Co unseling Given: No Alcohol Use Standard Drinks/Week Comments Yes 1 [...] Assigned at Date Recorded Not on file Last Filed Vital Signs Vital Sign Reading Time Taken Comments Blood Pressure 122/82 09/26/2019 3:41 PM SENIOR OPERATIONS ANALYST Pulse 88 09/26/2019 3:41 PM SENIOR OPERATIONS ANALYST Temperature 36.8 ??C (98.2 ??F) 09/26/2019 3:41 PM SENIOR OPERATIONS ANALYST Respiratory Rate 16 09/26/2019 3:41 PM SENIOR OPERATIONS ANALYST Oxygen Saturation 98% 08/28/2018 4:49 PM SENIOR OPERATIONS ANALYST Inhaled Oxygen Concentration - - Weight 52.6 kg (116 lb) 09/26/2019 3:41 PM SENIOR OPERATIONS ANALYST Height 170.2 cm (5' 7) 09/26/2019 3:41 PM SENIOR OPERATIONS ANALYST Body Mass Index 18.17 09/26/2019 3:41 PM SENIOR OPERATIONS ANALYST Plan of Treatment Health Maintenance Due Date Last Done Comments Hep C Screening (Preventive 1984 Services) COVID-19 Vaccine (#1) 02/20/1985 Pneumococcal (1 - PCV) 1990 HepB (2) 07/30/2012 07/02/2012 Pap 12/25/2018 12/25/2017 (Completed), 12/06/2017, 09/05/2016 (Completed), Additional history exists Adult Preventive Visit 12/06/2019 12/06/2017, 08/09/2016 Influenza (#1) 2022 08/25/2020, 07/02/2012 DTaP/Tdap/Td (7 - Tdap) 07/02/2022 07/02/2012, 11/06/1996, 03/12/1990, Additional history exists Zoster/Shingles (1 of 2) 2034 Hib Completed 08/21/1986 IPV (Polio) Completed 03/12/1990, 10/29/1989, 03/03/1985, Additional history exists HIV Screening (Preventive Completed 10/06/2008 Services) HPV Vaccine Aged Out No longer eligib le based on patient 's age to complete this topic HepA Aged Out No longer eligib le based on patient 's age to complete this topic MCV4 Aged Out No longer eligib le based on patient 's age to complete this topic Insurance Payer Benefit Plan Subscriber ID Effective Phone Address Typ e / Group Dates BCBS BCBS PMAP [id number] 2020-Pres [address] Med icaid BLUE ent [id number] ADVANTAGE [place] [address] [facility] PMAP [id number] 2018-Pre Medicaid DENTAL PLAN ADULT DENTAL sent [phone] [id number] (Home) [phone] [address] 6 (Work) [id number] Betty Tai Personal/Famil Self 1985 [phone] (Home) [place], [place] [phone] 6 (Work) Betty Tai Personal/Famil Self 1985 [phone] (Home) [place] [address] CHEYENNE MASSEY Personal/Famil Self 06/26/1956 [phone] (Home) [place] [address] Care Teams Facilities Engineer Relationship Specialty Start Date End Date Roselyn Marroquin PA-C PCP - General Physician Conveyor Weigher Operator 08/09/16 [address] [place] [address]
--- OUTSIDE RECORDS SUMMARY | 2022-06-01 10:56 | XMS_ITS | Encounter Summary ---
:1985 Author [facility] Address [address], [place] [address] Care Team Providers Name Role Phone Roselyn Marroquin PA-C Primary Care Provider Encounter Details Date Type Department Care Team Description 01/18/2019 Orders Only [facility] Mariam Herrera, [facility] Dentistry [address] [facility] [address] [place] [address] [place], [place] [address] [phone] Social History Tobacco Use Types Packs/Day Years [...] on filedocumented in this encounter Care Teams Counseling Aide Relationship Specialty Start Date End Date Roselyn Marroquin PA-C PCP - General Physician Crisis Mental Health Therapist 08/09/16 [address] [place] [address] documented as of this encounter
--- OUTSIDE RECORDS SUMMARY | 2022-06-01 10:56 | XMS_ITS | Encounter Summary ---
:[address] [facility] Address [address] [address] Care Team Providers Name Role Phone Lopez Roselyn Lynn PA-C Primary Care Provider Reason for Visit Procedure/Equipment (Routine) - Incomplete Specialty Diagnoses / Procedures Referred By Contact Refer red To Contact Diagnoses Acute left ankle pain Aung Saeed PA-C Procedures XR Foot 3+ Views/Ankle 2 Views Series Lt [address] [place] [address] Referral ID Status Reason Start Date Expiration Date Visits V isits Requested Authorized [id number] Incomplete 05/29/2018 08/28/2019 1 1 Encounter Details Date Type Department Care Team Description 05/29/2018 Imaging [facility] [address] [place] [address] Social History Tobacco Use Types Packs/Day Years [...] acute bony abnormalities. Joint spaces are intact. Aung Saeed PA-C RAD GD documented in this encounter Visit Diagnoses Not on filedocumented in this encounter Care Teams Assistant Oceanographer Relationship Specialty Start Date End Date Roselyn Marroquin PA-C PCP - General Physician Estate Manager 08/09/16 [address] [place] [address] documented as of this encounter
--- OUTSIDE RECORDS SUMMARY | 2022-06-01 10:56 | XMS_ITS | Encounter Summary ---
:1985 Author Organization [facility] Address [address], [place] [address] Care Team Providers Name Role Phone Roselyn Marroquin PA-C Primary Care Provider Reason for Visit Reason Comments COLPOSCOPY Encounter Details Date Type Department Care Team Description 09/05/2016 Procedure Visit [facility] Igor Stevenson COLPOSCOPY Services-MEDICAL CLAIMS MANAGER MD Tucker [address] [place] [address], [address] [place] [address] [address] [place] [address] [place], [place] [phone] (Wo rk) [address] [phone] Social History Tobacco Use Types Packs/Day Years [...] as of this encounter Progress Notes Igor Stevenson - 09/05/2016 2:20 PM WIRELESS TEAM MEMBER Addended by: IGOR STEVENSON on: 09/05/2016 02:20 PM Modules accepted: Orders LESS TEAM MEMBER Igor Stevenson - 09/05/2016 1:38 PM CST Colposcopy Procedure Note Indications: Pap smear 1 months ago showed: ASCUS with POSITIVE high risk HPV. 16/18 neg, other HPV +. The prior pap showed no abnormalities. Prior cervical/vaginal disease: None. Patient vaguely recalls an abnormal Pap and biopsy in her teens.. Prior cervical treatment: no treatment. Procedure Details The risks and benefits of the procedure and Verbal informed consent obtained. Speculum placed in vagina and excellent visualization of cervix achieved, cervix swabbed x 3 with acetic acid solution. Findings: Cervix: acetowhite lesion(s) noted at 12 o'clock and punctation noted at 12 o'clock; SCJ visualized - lesion at 12 o'clock. Biopsy taken at 12;00 Vaginal inspection: normal without visible lesions. Vulvar colposcopy: normal mucosa without lesions. Specimens: Cervix biopsy from 12:00 Complications: none. Plan: Specimens labelled and sent to Pathology. Will base further treatment on Pathology findings. Post biopsy instructions given to patient. LESS TEAM MEMBER Igor Stevenson - 09/05/2016 1:35 PM WIRELESS TEAM MEMBER Quick Note: Patient notified LESS TEAM MEMBER documented in this encounter Plan of Treatment Not on filedocumented as of this encounter Procedures Procedure Name Priority Date/Time Associated Comments Diagnosis CLINIC OBTAINED Routine 09/05/2016 2:33 PM ASCUS with positive Results for this ANATOMICAL PATHOLOGY WIRELESS TEAM MEMBER high risk HPV proced ure are in cervical the results section. SURGICAL BONY GROVER Routine 09/05/2016 2:33 PM Re sults for this [place] WIRELESS TEAM MEMBER procedure are i n the results section. POCT URINE Routine 09/05/2016 1:15 PM Encounter for Results for this WIRELESS TEAM MEMBER test, procedure ar e in result unknown the results section. documented in this encounter Results Pathology Report (09/05/2016 2:33 PM WIRELESS TEAM MEMBER) Specimen (Source) Anatomical Collection Method Collection Time Re ceived Time Location / / Volume Laterality 09/05/2016 2:33 PM WIRELESS TEAM MEMBER Narrative PN SOFT - 09/07/2016 10:36 AM WIRELESS TEAM MEMBER FINAL SURGICAL PATHOLOGY REPORT Pathology #: [id number] ? Date Obtained: 09/05/2016 ?Date Received: 09/06/2016 DIAGNOSIS: Uterine cervix, biopsy: - Mild chronic cervicitis, involving th e squamocolumnar transition ?? zone. - Negative for dysplasia. ?GEO PABLO MD ? (electronic signature) ? 09/07/2016 ??10:26 CLINICAL NOTES: ASCUS +HPV ORGAN/TISSUE SITE: Cervical biopsy GROSS DESCRIPTION: Received in formalin labeled cervical b iopsy is a 0.3 x 0.2 x 0.1 cm irregular neely-white tissue which is deon tered and submitted in one cassette. ? LUNMA MICROSCOPIC DESCRIPTION: Microscopic examination performed Performed at [facility] [address] [place] [address] Igor Stevenson MD LAB_1 Performing Organization Address [facility] Phon e Number PN SOFT [address] [place] [address] Clinic Obtained Tissue [TIS] (09/05/2016 2:33 PM WIRELESS TEAM MEMBER) P athologist Signature CLINIC Received PN SOFT OBTAINED TISSUE Specimen Anatomical Collection Method Collection Time Receive d Time (Source) Location / / Volume Laterality 09/05/2016 2:33 PM 6 2:32 WIRELESS TEAM MEMBER AM WIRELESS TEAM MEMBER Narrative PN SOFT - 09/06/2016 2:33 AM WIRELESS TEAM MEMBER Performed at [facility], [address] [place] [address] CLIA number [id number] Igor Stevenson MD LAB_1 Performing Organization Address City/[facility] Phon e Number PN SOFT [address] [place] [address] POCT urine (09/05/2016 1:15 PM WIRELESS TEAM MEMBER) [facility] gist Method Time Signature Urine Negative PN EXTERNAL Test - POC LAB-SEE SCANNED DOCUMENT Control Line Yes PN EXTERNAL Present, Clear LAB-SEE Background - SCANNED Internal DOCUMENT control Cartridge Lot# [id number] PN EXTERNAL LAB-SEE SCANNED DOCUMENT Comment: exp: Specimen (Source) Anatomical Collection Method Collection Time Re ceived Time Location / / Volume Laterality Urine specimen 09/05/2016 1:15 PM (specimen) WIRELESS TEAM MEMBER Igor Stevenson MD PN POINT OF CARE TESTS Performing Organization Address City/State/ZIP Code Phon e Number PN EXTERNAL LAB-SEE SCANNED DOCUMENT documented in this encounter Visit Diagnoses Diagnosis ASCUS with positive high risk HPV cervic al - Primary Encounter for test, result unk nown documented in this encounter Care Teams Director Translation Relationship Specialty Start Date End Date Roselyn Marroquin PA-C PCP - General Physician Dining Car Waiter/Waitress 08/09/16 [address] [place] [address] documented as of this encounter
--- OUTSIDE RECORDS SUMMARY | 2022-06-01 10:56 | XMS_ITS | Encounter Summary ---
:1985 Author Organization [facility] Address [address] [place] [address] Care Team Providers Name Role Phone Roselyn Marroquin PA-C Primary Care Provider Reason for Visit Reason Onset Date Comments Medication Questions 08/09/2016 seeking clarity on medication's directions Encounter Details Date Type Department Care Team Description 08/09/2016 Telephone [place] [facility] oRselyn Marroquin, Medicat ion Questions Medicine STU ([place] [address] [address] [facility] medication's directions [place], [place] [address] ) [address] [phone] Social History Tobacco Use Types Packs/Day Years [...] documented as of this encounter Nursing Notes Yuki Carey - 08/09/2016 3:05 PM CDT Fax received from pharm _ after conferring with pcp she was able to confirm pt is to change trans dermal patch once daily- allen notified via phone call documented in this encounter Plan of Treatment Not on filedocumented as of this encounter Visit Diagnoses Not on filedocumented in this encounter Care Teams Language Therapist Relationship Specialty Start Date End Date Roselyn Marroquin PA-C PCP - General Physician Crib Clerk 08/09/16 [address] [place] [address] documented as of this encounter
--- OUTSIDE RECORDS SUMMARY | 2022-06-01 10:56 | XMS_ITS | Encounter Summary ---
:1985 Author Organization [facility] Address [address], [place] [address] Care Team Providers Name Role Phone Lopez Roselyn Lynn PA-C Primary Care Provider Reason for Visit Reason Comments Dysuria frequency fatigue hematuria [id number] Encounter Details Date Type Department Care Team Description 09/26/2019 Office Visit [facility] Percy J, Dysuria (Primary Dx); Medicine PA-C Hematuria, microscopic [address] [address] [place] [address] [phone] Social History Tobacco Use Types Packs/Day Years [...] Comments Blood Pressure 122/82 09/26/2019 3:41 PM CREATIVE ART DIRECTOR Pulse 88 09/26/2019 3:41 PM CREATIVE ART DIRECTOR Temperature 36.8 ??C (98.2 ??F) 09/26/2019 3:41 PM CREATIVE ART DIRECTOR Respiratory Rate 16 09/26/2019 3:41 PM CREATIVE ART DIRECTOR Oxygen Saturation - - Inhaled Oxygen Concentration - - Weight 52.6 kg (116 lb) 09/26/2019 3:41 PM CREATIVE ART DIRECTOR Height 170.2 cm (5' 7) 09/26/2019 3:41 PM CREATIVE ART DIRECTOR Body Mass Index 18.17 09/26/2019 3:41 PM CREATIVE ART DIRECTOR documented in this encounter Patient Instructions Patient InstructionsPercy Gutierrez PA-C - 09/26/2019 3:20 PM CST Plan: 1). Cipro 500mg twice 3x daily for 5 days pending urine culture. 2). Will follow up on urine culture and adjust treatment if needed per results and/or response to treatment. 3). Symptomatic care with fluids, rest, Ibuprofen/Tylenol for pain and fevers. 4). Follow up with acute worsening of symptoms, feeling sicker, or any other concerns. TIVE ART DIRECTOR documented in this encounter Progress Notes Percy Gutierrez PA-C - 09/26/2019 3:20 PM CST Chief Complaint Patient presents with ??? Dysuria frequency fatigue hematuria [id number] History of present illness: Betty Tai is a 34 y.o. female who presents with concern for UTI. Has had a 3 day history of burning with urination/dysuria, increased urinary frequency, and urgency. Has noted some hematuria. Novaginal discharge or other vaginal symptoms. No suprapubic discomfort. No other abdominal pain. No fevers, back pain, nausea or vomiting. No history of UTIs although did fail course of Cephalexin with last UTI. No concern for STI exposure. Has not really taken anything for current symptoms. No other acute issues or concerns. Review of Systems: Constitutional: No fevers, chills, fatigue CHEST: No cough or breathing difficulty. HEART: No chest pain, no edema. ABD: No abdominal pain, nausea, vomiting or diarrhea. : Positive for dysuria, increased frequency, and urgency. No vaginal discharge, or irritation. M/S: No back pain, joint pain or swelling, no muscle pain. NEURO: No headaches, dizziness, weakness SKIN: No rashes or itching, no worrisome skin lesions. PSYCH: No issues with anxiety or depression. Past Medical History: Reviewed and updated in medical record at visit Past Surgical History: Reviewed and updated in medical record at visit Family History: Reviewed and updated in medical record at visit Medications: Reviewed and reconciled in medical record at visit. Allergies: Reviewed and updated in medical record at visit. Physical Exam: Vitals: 09/26/19 1541 BP: 122/82 Pulse: 88 Resp: 16 Temp: 98.2 ??F (36.8 ??C) GEN: Alert, oriented, well nourished/hydrated in NAD EYES: PEERL, EOMI CHEST: Normal effort, CTA. HEART: RRR, No audible murmur, rub or gallop. ABD: No supra-pubic tenderness. No other focal tenderness, rebound, or guarding. No CVAT Vaginal exam deferred. SKIN: Warm and dry without rash M/S: No joint swelling or redness. NEURO: CN 2-12 intact, non-focal exam PSYCH: Alert and oriented. Normal affect. Lab Results Component Value Date Urine Type URINE:clean cat 08/28/2018 Urine Clarity Hazy (A) 09/26/2019 Bilirubin Urine Negative 09/26/2019 Blood, Urine Trace 09/26/2019 Glucose Urine Qual (mg/dL) Negative 09/26/2019 Ketones, Urine (mg/dL) Negative 09/26/2019 Leukocyte Est. Large (A) 09/26/2019 PH Urine 7.0 09/26/2019 Protein, Urine Qual (mg/dL) Trace 09/26/2019 Specific Jackson, Urine 1.015 09/26/2019 Urobilinogen, Urine (EU/dL) 0.2 09/26/2019 Urine WBC >100 (H) 08/28/2018 WBC Clumps Few (A) 08/28/2018 Bacteria Urine Few (A) 08/28/2018 [facility] Trichomonas None Seen 02/18/2016 Diagnosis: Encounter Diagnoses Name Primary? Dysuria Yes ??? Hematuria, microscopic Plan: 1). Given failure of Cephalexin with last UTI will treat with Cipro 500mg twice daily for 5 days pending urine culture. 2). Will follow up on urine culture and adjust treatment if needed per results and/or response to treatment. 3). Symptomatic care with fluids, rest, Ibuprofen/Tylenol for pain and fevers. 4). Follow up with acute worsening of symptoms, feeling sicker, or any other concerns. TIVE ART DIRECTOR documented in this encounter Plan of Treatment Not on filedocumented as of this encounter Results (ABNORMAL) Urine Culture (09/26/2019 3:48 PM CREATIVE ART DIRECTOR) Component Value Ref Test Method Analysis Performed Patholog ist Range Time At Signature Urine Growth (A) 09/28/2019 [facility] Culture 10:34 AM HOSPITAL CREATIVE ART DIRECTOR Urine 10,000 - 50,000 GIANLUCA 09/28/2019 [facility] Culture CFU/mL SENSITIVITY 10:34 AM [facility] Staphylococcus CREATIVE ART DIRECTOR saprophyticus Specimen Anatomical Collection Method Collection Time Receive d Time (Source) Location / / Volume Laterality Urine URINE SPECIMEN Non-blood 09/26/2019 3:48 PM 019 3:48 COLLECTION, CLEAN Collection / CREATIVE ART DIRECTOR PM CREATIVE ART DIRECTOR CATCH / Unknown Unknown Narrative [facility] - 09/28/2019 10:[address] Routine testing of urine isolates of Sta phylococcus saprophyticus is not advised, because infections respond to concentrat ions achieved in urine of antimicrobial agents commonly used to treat acute, unc omplicated UTIs (eg, nitrofurantoin, trimethoprim ?? sulfamethoxazole, or a f luoroquinolone). Percy Gutierrez PA-C LAB_1 Performing Organization Address City/State/ZIP Code Phon e Number [address] [address] (ABNORMAL) Urine Dipstick NPT (09/26/2019 3:48 PM CREATIVE ART DIRECTOR) Patholo gist Method Time Signature Glucose Urine Negative Negative 09/26/2019 [facility] Qual (mg/dL) 3:55 PM CREATIVE ART DIRECTOR Bilirubin Negative Negative 09/26/2019 [facility] Urine 3:55 PM CREATIVE ART DIRECTOR Ketones, Negative Negative 09/26/2019 [facility] Urine (mg/dL) 3:55 PM CREATIVE ART DIRECTOR Specific 1.015 1.005 - 09/26/2019 [facility] Jackson, 1.030 3:55 PM CREATIVE ART DIRECTOR Urine Blood, Urine Trace Neg/Trace 09/26/2019 [facility] 3:55 PM CREATIVE ART DIRECTOR PH Urine 7.0 5.0 - 8.0 09/26/2019 [facility] 3:55 PM CREATIVE ART DIRECTOR Protein, Trace Neg/Trace 09/26/2019 [facility] Urine Qual 3:55 PM CREATIVE ART DIRECTOR (mg/dL) Urobilinogen, 0.2 <2.0 09/26/2019 [facility] Urine (EU/dL) 3:55 PM CREATIVE ART DIRECTOR Nitrite Urine Negative Negative 09/26/2019 [facility] 3:55 PM CREATIVE ART DIRECTOR Leukocyte Large (A) Negative 09/26/2019 [facility] Est. 3:55 PM CREATIVE ART DIRECTOR Urine Color Yellow Straw-Yellow 09/26/2019 [facility] 3:55 PM CREATIVE ART DIRECTOR Urine Clarity Hazy (A) Clear 09/26/2019 [facility] 3:55 PM CREATIVE ART DIRECTOR Specimen Anatomical Collection Method Collection Time Receive d Time (Source) Location / / Volume Laterality Urine URINE SPECIMEN Non-blood 09/26/2019 3:48 PM 019 3:48 COLLECTION, CLEAN Collection / CREATIVE ART DIRECTOR PM CREATIVE ART DIRECTOR CATCH / Unknown Unknown Percy Gutierrez PA-C LAB_1 Performing Organization Address City/State/ZIP Code Phon e Number [facility] [address] [place] [address] [phone] [facility] [address] [place] [address] [phone] documented in this encounter Visit Diagnoses Diagnosis Dysuria - Primary Hematuria, microscopic Microscopic hematuria documented in this encounter Care Teams Chain Builder Loom Control Relationship Specialty Start Date End Date Roselyn Marroquin PA-C PCP - General Physician Machine Finisher 08/09/16 [address] [place] [address] documented as of this encounter
--- OUTSIDE RECORDS SUMMARY | 2022-06-01 10:56 | XMS_ITS | Encounter Summary ---
:1985 Author Organization [facility] Address [address] [place] [address] Care Team Providers Name Role Phone Roselyn Marroquin PA-C Primary Care Provider Encounter Details Date Type Department Care Team Description 08/25/2020 Immunization [place] [address] Flu Need for prophylactic Clinic vaccination and [address] [place] [address] influenza [phone] Social History Tobacco Use Types Packs/Day Years [...] filedocumented as of this encounter Visit Diagnoses Diagnosis Need for prophylactic vaccination and in oculation against influenza documented in this encounter Care Teams Cattle Farmer Relationship Specialty Start Date End Date Roselyn Marroquin PA-C PCP - General Physician Psychiatric Lpn 08/09/[address] [place], [place] [id number] documented as of this encounter
--- OUTSIDE RECORDS SUMMARY | 2022-06-01 10:56 | XMS_ITS | Encounter Summary ---
:1985 Author Organization [employer] Address [address] [place] [address] Care Team Providers Name Role Phone LopezRoselyn Shane PERAZA Primary Care Provider Reason for Visit Reason Comments Dental Hygiene cc none Encounter Details Date Type Department Care Team Description 01/18/2018 Office Visit [facility] Mariam Herrera, [facility] [address] [place] [address] Dental Hygiene (cc Dentistry Yardic, Exam none) [address] [place] [address] Social History Tobacco Use Types Packs/Day Years [...] Sign Reading Time Taken Comments Blood Pressure 112/71 01/18/2018 4:10 PM CDT Pulse 83 01/18/2018 4:10 PM CDT Temperature - - Respiratory Rate - - Oxygen Saturation - - Inhaled Oxygen Concentration - - Weight - - Height - - Body Mass Index - - documented in this encounter Patient Instructions Patient InstructionsYareli Jacob, [facility] - 01/18/2018 4:10 PM CDT Your next hygiene recall is due 07/17/2018 PERSONAL DENTAL RISK REPORT FOR TELLO TERRELL Caries (Tooth Decay) Risk Periodontal (Gum Disease) Risk Oral Cancer Risk Your Risk Level Moderate High Moderate X Low This exam Your Risk Level Moderate High Moderate X Low This exam Your Risk Level Elevated Elevated X Low This exam Your Risk Factors How To Reduce Your Risk Rinse with fluoride rinse once or twice daily at times other than when brushing Application of a concentrated fluoride product to the teeth in the clinic to assist in remineralization Your Risk Factors Use of tobacco; cigarettes/ cigars/pipe How To Reduce Your Risk Consider quitting tobacco habit; participate in a QuitLine program or other means of quitting Return visit with the dental hygienist at 6 month intervals Your Risk Factors Use of tobacco; either smoking or smokeless How To Reduce Your Risk Tello, we look forward to seeing you at your next visit! Thank you for choosing [facility]. documented in this encounter Progress Notes Tomas Peralta DDS - 01/18/2018 4:10 PM CDT RECALL EXAM NOTE No chief complaint on file. Chart Review ?? Reviewed health history, dental history, problem list, periodontal charting and radiographs with the patient Soft tissue, head and neck examination ?? Lips: normal ?? Tongue: normal ?? Palate: normal ?? Throat: normal ?? Floor of the mouth: normal ?? Mucosa: normal ?? Head and neck: normal TMD Evaluation ?? Palpation pain: none ?? Joint sounds: none ?? Pain with range of motion: none Occlusal examination ?? Angle relationship: Right molar: class I Right cuspid: class I Left molar: class I Left cuspid:class I ?? Maxillary midline: within normal limits ?? Mandibular midline: within normal limits ?? Overbite: 3 mm ?? Overjet: 2 mm ?? Crossbite: none ?? Space loss: none ?? Crowding: not evident ?? Occlusion: all teeth ?? Attrition: excessive ?? Erosion: present ant ?? Overall occlusal relationship: stable Cosmetic concerns ?? Patient???s perception: acceptable ?? Dentist???s perception: acceptable Treatment Review and Follow-up ?? Dental Findings: were described to the patient: yes; and they expressed understanding: yes ?? Treatment options and prognosis were discussed: yes ?? Informed patient consent was obtained: yes; after all questions were answered: yes ?? Recommended Recall Examination: 6 months Recall prophy: 6 months ?? Planned Recall Examination: 6 months Recall prophy: 6 months Ely, monitor 15 MO amalg, small chip on MMR but contact closed NTI Tomas Peralta DDS 01/18/2018, 4:36 PM Yareli Jacob, [facility] - 01/18/2018 4:10 PM CDT PROPHY NOTE PROPHY/ASSESSMENT:[id number]::PROPHY NOTE Collaborative Agreement: ?? Patient consents to have charting, radiographs and prophylaxis by the dental hygienist performed with the understanding that this care is not a substitute for examination by a dentist. Presentation ?? Oral Hygiene: normal ?? Plaque: gen; light ?? Calculus:localized; mod; sub-gingival , interproximal and mandibular anterior ?? Stain: none ?? Bleeding:gen ; mod ?? Gingival tissue: normal ?? Mucogingival concerns: absent Activities ?? Treatment included: OHI, hand scale, Cavitorn all teeth, essential selective polishing and flossed all contacts ?? Encourage to floss and quit smoking ?? Pt want 6mo recall. Yareli Jacob 01/18/2018, 4:56 PM Completed dental procedures in this visit There are no completed dental procedures in this visit. documented in this encounter Plan of Treatment Scheduled Orders Name Type Priority Associated Order Schedule Diagnoses PROPHYLAXIS-ADULT Dental Procedures Routine 1 Occ urrences RECALL starting 2019 TOPICAL FLUORIDE Dental Procedures Routine 1 Occu rrences VARNISH starting 2019 PERIODIC ORAL Dental Procedures Routine 1 Occurre nces EVALUATION starting 2019 documented as of this encounter Procedures Procedure Name Priority Date/Time Associated Diagnosis Comme nts TOPICAL FLUORIDE Routine 01/18/2018 4:57 PM Routine health VARNISH CDT maintenance [id number] Routine 01/18/2018 4:57 PM Routine health CDT maintenance PROPHYLAXIS-ADULT Routine 01/18/2018 4:57 PM Routine health RECALL CDT maintenance PERIODIC ORAL Routine 01/18/2018 4:57 PM Routine health EVALUATION CDT maintenance 4 MOD EXISTING Routine 01/05/2017 11:00 PM COMPOSITE FILLING CDT 24 OR EXISTING Routine 01/05/2017 11:00 PM COMPOSITE FILLING CDT 24 OR EXISTING Routine 01/05/2017 11:00 PM COMPOSITE FILLING CDT 31 MO EXISTING Routine 01/05/2017 11:00 PM COMPOSITE FILLING CDT 2 O EXISTING COMPOSITE Routine 01/05/2017 11:00 PM FILLING CDT 8 FI EXISTING COMPOSITE Routine 01/05/2017 11:00 PM FILLING CDT 24 OR EXISTING Routine 01/05/2017 11:00 PM COMPOSITE FILLING CDT 29 DO EXISTING Routine 01/05/2017 11:00 PM COMPOSITE FILLING CDT 5 DO EXISTING COMPOSITE Routine 01/05/2017 11:00 PM FILLING CDT 2 O EXISTING COMPOSITE Routine 01/05/2017 11:00 PM FILLING CDT 30 MO EXISTING Routine 01/05/2017 11:00 PM COMPOSITE FILLING CDT 29 DO EXISTING Routine 01/05/2017 11:00 PM COMPOSITE FILLING CDT 8 FI EXISTING COMPOSITE Routine 01/05/2017 11:00 PM FILLING CDT 4 MOD EXISTING Routine 01/05/2017 11:00 PM COMPOSITE FILLING CDT 5 DO EXISTING COMPOSITE Routine 01/05/2017 11:00 PM FILLING CDT 2 O EXISTING COMPOSITE Routine 01/05/2017 11:00 PM FILLING CDT 2 O EXISTING COMPOSITE Routine 01/05/2017 11:00 PM FILLING CDT 31 MO EXISTING Routine 01/05/2017 11:00 PM COMPOSITE FILLING CDT 30 MO EXISTING Routine 01/05/2017 11:00 PM COMPOSITE FILLING CDT 29 DO EXISTING Routine 01/05/2017 11:00 PM COMPOSITE FILLING CDT 2 O EXISTING COMPOSITE Routine 01/05/2017 11:00 PM FILLING CDT 8 FI EXISTING COMPOSITE Routine 01/05/2017 11:00 PM FILLING CDT 4 MOD EXISTING Routine 01/05/2017 11:00 PM COMPOSITE FILLING CDT 5 DO EXISTING COMPOSITE Routine 01/05/2017 11:00 PM FILLING CDT 2 O EXISTING COMPOSITE Routine 01/05/2017 11:00 PM FILLING CDT 30 MO EXISTING Routine 01/05/2017 11:00 PM COMPOSITE FILLING CDT 31 MO EXISTING Routine 01/05/2017 11:00 PM COMPOSITE FILLING CDT 15 O EXISTING AMALGAM Routine 01/05/2017 11:00 PM FILLING CDT 14 DO EXISTING AMALGAM Routine 01/05/2017 11:00 PM FILLING CDT 15 O EXISTING AMALGAM Routine 01/05/2017 11:00 PM FILLING CDT 19 DO EXISTING AMALGAM Routine 01/05/2017 11:00 PM FILLING CDT 15 O EXISTING AMALGAM Routine 01/05/2017 11:00 PM FILLING CDT 18 MO EXISTING AMALGAM Routine 01/05/2017 11:00 PM FILLING CDT 15 O EXISTING AMALGAM Routine 01/05/2017 11:00 PM FILLING CDT 18 MO EXISTING AMALGAM Routine 01/05/2017 11:00 PM FILLING CDT 19 DO EXISTING AMALGAM Routine 01/05/2017 11:00 PM FILLING CDT 18 MO EXISTING AMALGAM Routine 01/05/2017 11:00 PM FILLING CDT 15 O EXISTING AMALGAM Routine 01/05/2017 11:00 PM FILLING CDT 19 DO EXISTING AMALGAM Routine 01/05/2017 11:00 PM FILLING CDT 15 O EXISTING AMALGAM Routine 01/05/2017 11:00 PM FILLING CDT documented in this encounter Visit Diagnoses Diagnosis Routine health maintenance - Primary Routine general medical examination at a health care facility Caries of dentin Dental caries extending into dentine Tooth fracture Open wound of tooth (broken) (fractured) (due to trauma), without mention of complication Fractured dental worship with loss o f material Fractured dental restorative material wi th loss of material Gingivitis, chronic, non-plaque induced Chronic gingivitis, non-plaque induced documented in this encounter Care Teams Pouch Making Machine Operator Relationship Specialty Start Date End Date Roselyn Marroquin PA-C PCP - General Physician Solder Deposit Operator 08/09/16 [address] [place] [address] documented as of this encounter
--- OUTSIDE RECORDS SUMMARY | 2022-06-01 10:56 | XMS_ITS | Encounter Summary ---
:1985 Author Organization [employer] Address [address], [place] [address] Care Team Providers Name Role Phone LopezVinnyRoselyndonald Lynn PA-C Primary Care Provider Reason for Visit Reason Comments Dysuria couple day, blood in urine a nd when wiping Encounter Details Date Type Department Care Team Description 06/26/2018 Office Visit [facility] Jarett Gutierrez MD Acute cystitis with hematuria (Primary D x); Medicine [address] [place] [address] Viral upper respiratory tract infection; [address] [place], [place] Dysuria; [place] [address] Encounter for test, result unk nown [phone] (Wo rk) Social History Tobacco Use Types [...] Sign Reading Time Taken Comments Blood Pressure 118/72 06/26/2018 1:58 PM CDT Pulse 96 06/26/2018 1:58 PM CDT Temperature 36.9 ??C (98.5 ??F) 06/26/2018 1:58 PM CDT Respiratory Rate - - Oxygen Saturation - - Inhaled Oxygen Concentration - - Weight 55 kg (121 lb 5 oz) 06/26/2018 1:58 PM CDT Height - - Body Mass Index 20.03 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 Urinary Tract Infection in Women: Care Instructions Your Care Instructions A urinary tract infection, or UTI, is a general term for an infection anywhere between the kidneys and the urethra (where urine comes out). Most UTIs are bladder infections. They often cause pain or burning when you urinate. UTIs are caused by bacteria and can be cured with antibiotics. Be sure to complete your treatment sothat the infection goes away. Follow-up care is a elizabeth part of your treatment and safety. Be sure to make and go to all appointments, and call your doctor if you are having problems. It's also a good idea to know your test results and keep a list of the medicines you take. How can you care for yourself at home? ?? Take your antibiotics as directed. Do not stop taking them just because you feel better. You needto take the full course of antibiotics. ?? Drink extra water and other fluids for the next day or two. This may help wash out the bacteria that are causing the infection. (If you have kidney, heart, or liver disease and have to limit fluids,talk with your doctor before you increase your fluid intake.) ?? Avoid drinks that are carbonated or have caffeine. They can irritate the bladder. ?? Urinate often. Try to empty your bladder each time. ?? To relieve pain, take a hot bath or lay a heating pad set on low over your lower belly or genitalarea. Never go to sleep with a heating pad in place. To prevent UTIs ?? Drink plenty of water each day. This helps you urinate often, which clears bacteria from your system. (If you have kidney, heart, or liver disease and have to limit fluids, talk with your doctor before you increase your fluid intake.) ?? Urinate when you need to. ?? Urinate right after you have sex. ?? Change sanitary pads often. ?? Avoid douches, bubble baths, feminine hygiene sprays, and other feminine hygiene products that have deodorants. ?? After going to the bathroom, wipe from front to back. When should you call for help? Call your doctor now or seek immediate medical care if: ? Symptoms such as fever, chills, nausea, or vomiting get worse or appear for the first time. ? You have new pain in your back just below your rib cage. This is called flank pain. ? There is new blood or pus in your urine. ? You have any problems with your antibiotic medicine. ??Watch closely for changes in your health, and be sure to contact your doctor if: ? You are not getting better after taking an antibiotic for 2 days. ? Your symptoms go away but then come back. Where can you learn more? 1. Go to [employer] or [employer]. 2. Enter K848 in the search box. Current as of: March 02, 2017 Content Version: 11.7 ?? [id number] [employer], [employer]. documented in this encounter Progress Notes Jarett Gutierrez MD - 06/26/2018 2:00 PM CDT SUBJECTIVE: This 32-year-old female presents with two-day history acute onset dysuria increased urinary frequency and urgency and gross hematuria. No fevers or chills. Also notes 4-5 day history of acute onset productive cough and sinus symptoms. She is having low abdominal cramping. No new back/flankpain. No nausea or vomiting. Medications: Current Outpatient Prescriptions Medication Sig Dispense Refill ??? nicotine (NICODERMCQ) 14 MG/24HR patch Apply 1 Patch to skin every 24 hours. . (Patient not taking: Reported on 12/25/2017) 30 Each 0 No current facility-administered medications for this visit. Adverse Drug Reactions: Review of patient's allergies indicates no known allergies. Social History: Social History Social History ??? Marital status: Single Spouse name: N/A ??? Number of children: 1 ??? Years of education: N/A Occupational History ??? [employer] [place] Social History Main Topics ??? Smoking status: Current Every Day Smoker Packs/day: 0.50 Years: 10.00 Types: Cigarettes ??? Smokeless tobacco: Never Used ??? Alcohol use 0.6 oz/week 1 Cans of beer per week Comment: 1 monthly ??? Drug use: No ??? Sexual activity: Yes Partners: Male control/ protection: None Other Topics Concern ??? City Water Yes ??? Exercise Yes ??? Seat Belt Yes ??? Special Diet No ??? Weight Concern No Social History Narrative OBJECTIVE: Vital Signs: BP 118/72 (BP Location: Right Arm, BP Cuff Size: Adult Regular) Pulse 96 Temp 98.5 ??F (36.9 ??C) (Oral) Wt 121 lb 5 oz (55 kg) LMP 06/07/2018 (Approximate) BMI 20.03 kg/m2 General: Alert. Appears well. Breathing comfortably. Eyes: Full EOM, PERRLA, without lesions or injection. Ears: Canals and TMs normal. Nose: Patent, without deformity. Septum intact and midline. Neck: Supple, without masses, lymphadenopathy, or tenderness. No thyromegaly or nodules. Throat: Moist mucous membranes without lesions, erythema, or exudate. Respiratory: Normal respiratory effort. Lungs clear with good breath sounds. No CVAT. Abdomen: Soft and nontender without guarding rebound or masses. Normal bowel sounds. No hepatosplenomegaly. No bruits. Neuro: Clear speech. Motor function intact. Gait steady. Skin: No jaundice or acute rash. Office Visit on 06/26/2018 Component Date Value Ref Range Status ??? Urine Type 06/26/2018 URINE:clean cat Final ??? Turbidity 06/26/2018 Hazy* Clear Final ??? U BILI 06/26/2018 Negative Negative Final ??? Blood Urine 06/26/2018 Moderate* Neg - Trace Final ??? Glucose, Qualitative U 06/26/2018 Negative Neg-30 mg/dL Final ??? Ketones 06/26/2018 Negative Negative Final ??? Leukocyte Esterase Urine 06/26/2018 Small* Negative Final ??? Nitrite Urine 06/26/2018 Negative Negative Final ??? pH Urine 06/26/2018 6.5 5.0 - 8.0 Final ??? Protein Urine 06/26/2018 Trace Neg - Trace mg/dL Final ??? U Specific [place] 06/26/2018 1.020 1.005 - 1.030 Final ??? Urobilinogen Urine 06/26/2018 Negative Negative Eu/dL Final ? ? Urine WBC 06/26/2018 >100* 0 - 4 /HPF Final ??? Urine RBC 06/26/2018 25-49* 0 - 2 /HPF Final ??? Bacteria Urine 06/26/2018 Few* /HPF Final Urine culture has been ordered per reflex protocol. ??? Epithelial Cells 06/26/2018 Few /HPF Final ??? Urine Test 06/26/2018 Negative Final ASSESSMENT: 1. Acute cystitis with hematuria. 2. Viral URI. PLAN: Bactrim DS 1 tablet twice a day for 3 days prescribed. Follow-up with PCP if symptoms do not fully resolve with treatment, or if new or worsening symptoms develop. Otherwise return to lab in about 5-7 days for recheck of urinalysis. Symptomatic measures for the viral URI. At the end of the visit she asked about faint darkening of the skin of the face, specifically above the upper lip and in both malar areas. She notes these areas appear to be a little darker compared tothe surrounding skin during the summer and then lightened during the winter. I think this is probably mild case of melasma. documented in this encounter Plan of Treatment Not on filedocumented as of this encounter Procedures Procedure Name Priority Date/Time Associated Comments Diagnosis URINE MICROSCOPIC STAT 06/26/2018 2:05 PM Resu lts for this CDT procedure are i n the results section. URINALYSIS ROUTINE, STAT 06/26/2018 2:05 PM Dysuria Re sults for this MICRO/CULTURE IF POS CDT procedu re are in the results section. URINE CULTURE STAT 06/26/2018 2:05 PM Results for this CDT procedure are i n the results section. TEST STAT 06/26/2018 2:05 PM Results for this (URINE) CDT procedure are i n the results section. documented in this encounter Results Test (Urine) (06/26/2018 2:05 PM CDT) P athologist Signature Urine Negative PN SOFT Test Specimen (Source) Anatomical Collection Method Collection Time Re ceived Time Location / / Volume Laterality Urine: 06/26/2018 2:05 PM CDT Narrative PN SOFT - 06/26/2018 2:44 PM CDT Performed at [facility], [address] [place] [address] CLIA number [id number] Jarett Gutierrez MD LAB_1 Performing Organization Address [facility] Phon e Number PN SOFT [address] [place] [address] (ABNORMAL) Urine Microscopic (06/26/2018 2:05 PM CDT) Analysis Performed At Patho logist Time Signature Urine WBC >100 (H) 0 - 4 /HPF PN SOFT Urine RBC 25-49 (A) 0 - 2 /HPF PN SOFT Bacteria Urine Few (A) /HPF PN SOFT Comment: Urine culture has been ordered per reflex protocol. Epithelial Cells Few /HPF PN SOFT Specimen (Source) Anatomical Collection Method Collection Time Re ceived Time Location / / Volume Laterality Urine: 06/26/2018 2:05 PM CDT Narrative PN SOFT - 06/26/2018 2:19 PM CDT Performed at [facility], [address] [place] [address] CLIA number [id number] Jarett Gutierrez MD LAB_1 Performing Organization Address [facility] Phon e Number PN SOFT [address] [place] [address] (ABNORMAL) Urine Culture (06/26/2018 2:05 PM CDT) Component Value Ref Test Analysis Performed At Patholo gist Range Method Time Signature Source Urine PN SOFT Site PN SOFT Urine Cuture 50 to 100,000 col/ml Staphylococcus saprophyticus 06/27/2018 PN SOFT Routine testing of urine isolates of S. saprophyticus is 8:58 PM CDT NOT advised because infections respond to concentrations achieved in urine of antimicrobial agents commonly used to treat acute, uncomplicated urinary tract infections (e.g. nitrofurantoin, trimethoprim +/- sulfamethoxazole or a fluoroquinone). Do not treat asymptomatic bacteriuria in adults per IDSA ?... http://www.idsociety.org/Organ_System/#AsymptomaticBacteriur ia (A) Urine Staphylococcus 06/27/2018 PN SOFT Culture saprophyticus (A) 8:58 PM CDT Organism 50 to 100,000 06/27/2018 PN SOFT Comment col/ml (A) 8:58 PM CDT Specimen (Source) Anatomical Collection Method Collection Time Re ceived Time Location / / Volume Laterality Urine: 06/26/2018 2:05 PM CDT Narrative PN SOFT - 06/27/2018 8:58 PM CDT Performed at [facility], [address] [place] [address], CLIA Number [id number] Jarett Gutierrez MD LAB_1 Performing Organization Address [facility] Phon e Number PN SOFT [address] [place], [place] [address] [phone] (ABNORMAL) Urinalysis Routine, Micro/Culture if Pos (06/26/2018 2:05 PM CDT) [facility] Method Time Signature Urine Type URINE:clean PN SOFT cat Turbidity Hazy (A) Clear PN SOFT U BILI Negative Negative PN SOFT Blood Urine Moderate (A) Neg - Trace PN SOFT Glucose, Negative Neg-30 PN SOFT Qualitative U mg/dL Ketones Negative Negative PN SOFT Leukocyte Small (A) Negative PN SOFT Esterase Urine Nitrite Urine Negative Negative PN SOFT pH Urine 6.5 5.0 - 8.0 PN SOFT Protein Urine Trace Neg - Trace PN SOFT mg/dL U Specific 1.020 1.005 - PN SOFT [place] 1.030 Urobilinogen Negative Negative PN SOFT Urine Eu/dL Specimen (Source) Anatomical Collection Method Collection Time Re ceived Time Location / / Volume Laterality Urine: 06/26/2018 2:05 PM CDT Narrative PN SOFT - 06/26/2018 2:11 PM CDT Performed at [facility], [address] [place] [address] CLIA number [id number] Jarett Gutierrez MD LAB_1 Performing Organization Address [facility] Phon e Number PN SOFT [address] [place] [address] [phone] documented in this encounter Visit Diagnoses Diagnosis Acute cystitis with hematuria - Primary Acute cystitis Viral upper respiratory tract infection Acute upper respiratory infections of un specified site Dysuria Encounter for test, result unk nown documented in this encounter Care Teams Bakery Assistant Relationship Specialty Start Date End Date Roselyn Marroquin PA-C PCP - General Physician Production Tech 08/09/16 [address] [place] [address] documented as of this encounter
--- OUTSIDE RECORDS SUMMARY | 2022-06-01 10:57 | XMS_ITS | Encounter Summary ---
:1985 Author Organization [facility] Address [address] [address] Care Team Providers Name Role Phone Unassigned, Provider Primary Care Provider Unavailable Encounter Details Date Type Department Care Team Description 03/18/2009 Routine Igor Burroughs Obstetrics/[place] [address] [facility] [address] [place] [address] [place] [address] [phone] (Wo rk) Social History Tobacco Use Types Packs/Day Years Used Date Smoking Tobacco: Never Assessed Sex Assigned at Date Recorded Not on file documented as of this encounter Last Filed Vital Signs Vital Sign Reading Time Taken Comments Blood Pressure 112/76 03/18/2009 11:27 AM CDT Pulse - - Temperature - - Respiratory Rate - - Oxygen Saturation - - Inhaled Oxygen Concentration - - Weight 67.6 kg (148 lb 15.8 oz) 03/18/2009 11:27 AM C: 67.6kg CDT Height 165.1 cm (5' 5) 03/18/2009 11:27 AM C: 165.1cm CDT Body Mass Index 24.79 03/18/2009 11:27 AM CDT documented in this encounter Plan of Treatment Not on filedocumented as of this encounter Visit Diagnoses Not on filedocumented in this encounter Care Teams Mount Loader Relationship Specialty Start Date End Date Unassigned, Provider PCP - General 12/01/00 02/17/16 [address] [place] [address] documented as of this encounter
--- OUTSIDE RECORDS SUMMARY | 2022-06-01 10:57 | XMS_ITS | Encounter Summary ---
:1985 [facility] Address [address] [address] Care Team Providers Name Role Phone Needs Pcp, Assignment Primary Care Provider Reason for Visit Reason Comments Cough Vaginal Discharge Encounter Details Date Type Department Care Team Description 02/18/2016 Hospital Encounter [facility] Awilda Trivedi, Acute vaginitis; Care MD Viral URI; [address] [address] [address] Urinary tract infection, site unspecifie d; Drive [place], [place] BV (bacterial vaginosis) [place] [address] [phone] Social History Tobacco Use Types Packs/Day Years Used Date Smoking Tobacco: Never Assessed Sex Assigned at Date Recorded Not on file documented as of this encounter Last Filed Vital Signs Vital Sign Reading Time Taken Comments Blood Pressure 128/84 02/18/2016 2:49 PM CDT Pulse 89 02/18/2016 2:49 PM CDT Temperature 36.4 ??C (97.5 ??F) 02/18/2016 2:49 PM CDT Respiratory Rate 20 02/18/2016 2:49 PM CDT Oxygen Saturation - - Inhaled Oxygen Concentration - - Weight - - Height - - Body Mass Index - - documented in this encounter Medications at Time of Discharge Medication Sig Dispensed Refills Start Date End Date ciprofloxacin (aka CIPRO) Take 1 tablet by 14 tablet 0 01/2102/25/2016 tablet mouth 2 times daily for 7 days. acetaminophen (AKA TYLENOL Take 1-2 tablets [...] PRN. LW Addl Instr:Take with food. metroNIDAZOLE (aka FLAGYL) Take 1 tablet by 14 tablet 0 04/28/2016 tablet mouth 2 times daily. metroNIDAZOLE (FLAGYL) 500 Take 1 tablet by 14 tablet 0 12/06/2017 MG tablet mouth 2 times daily. unknown medication Indications: PN: 0 03/29/2009 08/09/2016 documented as of this encounter ED Notes Awilda Trivedi MD - 02/18/2016 4:35 PM CDT SUBJECTIVE: Betty Tai is a 30 y.o.female who presents with two weeks of URI symptoms, runny nose, productive cough, continues to smoke 1/2 PPD, is using [employer]'s dimetapp and it helps. 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 She has had no fevers with this, has no history respiratory problems. Just 6 your daughter who is well. She is worried about pneumonia. She has been coughing so hard her back hurts. 2nd issue she has vaginal discharge for the last few days, itchy, watery. No concerns about STDs. Norecent antibiotics. She is monogamous, psychoactive, does not use control, not trying to get , they are just careful. In addition, she is expecting her menses today. She has also noticed that her urine has been darker over the last few days. Has no history of liver problems. No itchy skin. Does not use Tylenol. She has been trying to increase her intake of fluids, but she drinks a lot of caffeinated beverages, Past Medical History: Patient Active Problem List Diagnosis ??? Tobacco abuse (HRC) Adverse Drug Reactions: Review of patient's allergies indicates no known allergies. Medications: acetaminophen, benzonatate, ciprofloxacin HCl, ibuprofen, metroNIDAZOLE, and op medications reviewed Family History: History reviewed. No pertinent family history. Social History: History Substance Use Topics ??? Smoking status: Current Every Day Smoker -- 0.50 packs/day Types: Cigarettes ??? Smokeless tobacco: Not on file ??? Alcohol Use: 0.6 oz/week 1 Cans of beer per week Comment: 1 monthly Review of Systems: All systems were reviewed and found to be negative except as noted above. Vital Signs: BP 128/84 mmHg Pulse 89 Temp(Src) 36.4 ??C (97.6 ??F) (Oral) Resp 20 LMP 01/21/2016 (Approximate) OBJECTIVE: General: NAD Skin: No rashes Head: Normocephalic. Eyes: PERRLA, full EOM. External exams normal. Ears: Normal pinnae, canals. TM's normal Nose: Patent, without deformity. Mucosa normal Throat: Moist mucous membranes without lesions, erythema, or exudate. Neck: Supple, without masses, lymphadenopathy or tenderness. Respiratory: Normal respiratory effort. Lungs are clear with good breath sounds. Heart: RR without murmurs, rubs, or gallops. Abdomen: The abdomen was flat, soft and nontender without guarding rebound or masses. Genital exam normal external genitalia, speculum is inserted without difficulty, small amount of white discharge with a little bit of red staining was noted, cervix was closed. Bimanual exam unremarkable Labs: Labs Reviewed LAB URINALYSIS ROUTINE(MICRO IF POS) - Abnormal; Notable for the following: Leukocyte Esterase Urine Small (*) All other components within normal limits Narrative: Performed at [facility], [address] [place] [address] CLIA number [id number] LAB WET PREP - Abnormal; Notable for the following: WETPR Clue Cells Moderate (*) All other components within normal limits Narrative: Performed at [facility], [address] [place] [address] CLIA number [id number] LAB URINE MICROSCOPIC - Abnormal; Notable for the following: Bacteria Urine Moderate (*) All other components within normal limits Narrative: Performed at [facility], [address] [place] [address] CLIA number [id number] X-Rays: Xr Chest * Pa And Left Lateral (standard) 02/18/2016 COMPARISON: None. FINDINGS: Two views were obtained. The lungs and costophrenic angles areclear. Heart size and pulmonary vascularity are within normal limits. No pleural effusion. Bony thorax is unremarkable. Medications - No data to display ASSESSMENT: 1. Acute vaginitis 2. Viral URI 3. Urinary tract infection, site unspecified (HRC) 4. BV (bacterial vaginosis) PLAN: Medications Prescribed this Visit Disp Refills Start End metroNIDAZOLE (FLAGYL) 500 mg tablet 14 tablet 0 02/18/2016 Take 1 tablet by mouth 2 times daily. Oral ciprofloxacin HCl (CIPRO) 500 mg tablet 14 tablet 0 02/18/2016 02/25/2016 Take 1 tablet by mouth 2 times daily for 7 days. Oral benzonatate (TESSALON) 100 mg capsule 30 capsule 0 02/18/2016 02/28/2016 Take 1 capsule by mouth every 8 hours for 10 days. Oral Discharge Instructions Bacterial Vaginosis: Care Instructions Your Care Instructions Bacterial vaginosis is a type of vaginal infection. It is caused by excess growth of certain bacteria that are normally found in the vagina. Symptoms can include itching, swelling, pain when you urinate or have sex, and a gong or yellow discharge with a fishy odor. It is not considered an infection that is spread through sexual contact. Although symptoms can be annoying and uncomfortable, bacterial vaginosis does not usually cause other health problems. However, if you have it while you are , it can cause complications. While the infection may go away on its own, most doctors use antibiotics to treat it. You may have been prescribed pills or vaginal cream. With treatment, bacterial vaginosis usually clears up in 5 to 7 days. Follow-up care is a elizabeth part of [...] them just because you feel better. You need to take the full course of antibiotics. ?? Do not eat or drink anything that contains alcohol if you are taking metronidazole (Flagyl). ?? Keep using your medicine if you start your period. Use pads instead of tampons while using a vaginal cream or suppository. Tampons can absorb the medicine. ?? Wear loose cotton clothing. Do not wear nylon and other materials that hold body heat and moisture close to the skin. ?? Do not scratch. Relieve itching with a cold pack or a cool bath. ?? Do not wash your vaginal area more than once a day. Use plain water or a mild, unscented soap. Do not douche. When should you call for help? Watch closely for changes in your health, and be sure to contact your doctor if: ?? You have unexpected vaginal bleeding. ?? You have a fever. ?? You have new or increased pain in your vagina or pelvis. ?? You are not getting better after 1 week. ?? Your symptoms return after you finish the course of your medicine. Where can you learn more? Go to Mlog/Image Searcher and enter X360 in the search box. Current as of: April 22, 2015 Content Version: 108 ?? [id number] [employer], [employer]. Upper Respiratory Infection (Cold): Care Instructions Your Care Instructions An upper respiratory infection, or URI, is an infection of the nose, sinuses, or throat. URIs are spread by coughs, sneezes, and direct contact. The common cold is the most frequent kind of URI. The flu and sinus infections are other kinds of URIs. Almost all URIs are caused by viruses. Antibiotics won't cure them. But you can treat most infections with home care. This may include drinking lots of fluids and taking ubwf-lpg-cubczwq pain medicine. You will probably feel better in 4 to 10 days. The doctor has checked you carefully, but problems can develop later. If you notice any problems or new symptoms, get medical treatment right away. Follow-up care is a elizabeth part of your treatment and safety. Be sure to make and go to all appointments, and call your doctor if you are having problems. It's also a good idea to know your test results and keep a list of the medicines you take. How can you care for yourself at home? ?? To prevent dehydration, drink plenty of fluids, enough so that your urine is light yellow or clear like water. Choose water and other caffeine-free clear liquids until you feel better. If you have kidney, heart, or liver disease and have to limit fluids, talk with your doctor before you increase the amount of fluids you drink. ?? Take an jnkq-efc-ycwntjy pain medicine, such as acetaminophen (Tylenol), ibuprofen (Advil, Motrin), or naproxen (Aleve). Read and follow all instructions on the label. ?? Before you use cough and cold medicines, check the label. These medicines may not be safe for young children or for people with certain health problems. ?? Be careful when taking jlgt-tge-yxibwsr cold or flu medicines and Tylenol at the same time. Many of these medicines have acetaminophen, which is Tylenol. Read the labels to make sure that you are not taking more than the recommended dose. Too much acetaminophen (Tylenol) can be harmful. ?? Get plenty of rest. ?? Do not smoke or allow others to smoke around you. If you need help quitting, talk to your doctor about stop-smoking programs and medicines. These can increase your chances of quitting for good. When should you call for help? Call 911 anytime you think you may need emergency care. For example, call if: ?? You have severe trouble breathing. Call your doctor now or seek immediate medical care if: ?? You seem to be getting much sicker. ?? You have new or worse trouble breathing. ?? You have a new or higher fever. ?? You have a new rash. Watch closely for changes in your health, and be sure to contact your doctor if: ?? You have a new symptom, such as a sore throat, an earache, or sinus pain. ?? You cough more deeply or more often, especially if you notice more mucus or a change in the color of your mucus. ?? You do not get better as expected. Where can you learn more? Go to Mlog/Venuelabsrary and enter K520 in the search box. Current as of: June 11, 2015 Content Version: 108 ?? [id number] [employer], [employer]. RTC p.r.n. documented in this encounter Miscellaneous Notes Medication History - Cade Brannon MD - 02/18/2016 4:35 PM CDT INPATIENT MEDS Encounter Date: 02/18/16 benzonatate (TESSALON) 100 mg capsule Start Date:02/18/16, End Date:02/28/16, Frequency:EVERY 8 HOURS *No Administrations Recorded metroNIDAZOLE (FLAGYL) 500 mg tablet Start Date:02/18/16, End Date:-, Frequency:2 TIMES DAILY *No Administrations Recorded ciprofloxacin HCl (CIPRO) 500 mg tablet Start Date:02/18/16, End Date:02/25/16, Frequency:2 TIMES DAILY *No Administrations Recorded ED AVS Snapshot - Cade Brannon MD - 02/18/2016 4:35 PM CDT Images from the original note were not included. [facility] [address] [facility] [address] Dept: [phone] [email or web address] Betty Tai 02/18/2016 2:51 PM UC Description: Female : 1985 Department: [facility] Thank you for choosing [facility] for your health care visit with Awilda Trivedi MD.We are happy to care for you and provide this summary of your visit. Your primary career and guidance counselor is currently listed as Assignment Needs PCP. HERE IS WHAT YOU NEED TO KNOW To learn how you can take steps to stay as healthy as you can be visit [email or web address] Discharge Instructions Bacterial Vaginosis: Care Instructions Your Care Instructions Bacterial vaginosis is a type of vaginal infection. It is caused by excess growth of certain bacteria that are normally found in the vagina. Symptoms can include itching, swelling, pain when you urinate or have sex, and a gong or yellow discharge with a fishy odor. It is not considered an infection that is spread through sexual contact. Although symptoms can be annoying and uncomfortable, bacterial vaginosis does not usually cause other health problems. However, if you have it while you are , it can cause complications. While the infection may go away on its own, most doctors use antibiotics to treat it. You may have been prescribed pills or vaginal cream. With treatment, bacterial vaginosis usually clears up in 5 to 7 days. Follow-up care is a elizabeth part of [...] take the full course of antibiotics. ?? Do not eat or drink anything that contains alcohol if you are taking metronidazole (Flagyl). ?? Keep using your medicine if you start your period. Use pads instead of tampons while using a vaginal cream or suppository. Tampons can absorb the medicine. ?? Wear loose cotton clothing. Do not wear nylon and other materials that hold body heat and moisture close to the skin. ?? Do not scratch. Relieve itching with a cold pack or a cool bath. ?? Do not wash your vaginal area more than once a day. Use plain water or a mild, unscented soap. Donot douche. When should you call for help? Watch closely for changes in your health, and be sure to contact your doctor if: ?? You have unexpected vaginal bleeding. ?? You have a fever. ?? You have new or increased pain in your vagina or pelvis. ?? You are not getting better after 1 week. ?? Your symptoms return after you finish the course of your medicine. Where can you learn more? Go to Mlog/Venuelabsrary and enter X360 in the search box. Current as of: April 22, 2015 Content Version: 108 ?? [id number] [employer], [facility]. Upper Respiratory Infection (Cold): Care Instructions Your Care Instructions An upper respiratory infection, or URI, is an infection of the nose, sinuses, or throat. URIs are spread by coughs, sneezes, and direct contact. The common cold is the most frequent kind of URI. The flu and sinus infections are other kinds of URIs. Almost all URIs are caused by viruses. Antibiotics won't cure them. But you can treat most infections with home care. This may include drinking lots of fluids and taking cqpz-gng-sjnppfi pain medicine.You will probably feel better in 4 to 10 days. The doctor has checked you carefully, but problems can develop later. If you notice any problems or new symptoms, get medical treatment right away. Follow-up care is a elizabeth part of your treatment and safety. Be sure to make and go to all appointments, and call your doctor if you are having problems. It's also a good idea to know your test results and keep a list of the medicines you take. How can you care for yourself at home? ?? To prevent dehydration, drink plenty of fluids, enough so that your urine is light yellow or clear like water. Choose water and other caffeine-free clear liquids until you feel better. If you have kidney, heart, or liver disease and have to limit fluids, talk with your doctor before you increase the amount of fluids you drink. ?? Take an iqza-cnj-xeffnuj pain medicine, such as acetaminophen (Tylenol), ibuprofen (Advil, Motrin), or naproxen (Aleve). Read and follow all instructions on the label. ?? Before you use cough and cold medicines, check the label. These medicines may not be safe for young children or for people with certain health problems. ?? Be careful when taking uhbr-kpj-nzriwck cold or flu medicines and Tylenol at the same time. Many of these medicines have acetaminophen, which is Tylenol. Read the labels to make sure that you are not taking more than the recommended dose. Too much acetaminophen (Tylenol) can be harmful. ?? Get plenty of rest. ?? Do not smoke or allow others to smoke around you. If you need help quitting, talk to your doctor about stop-smoking programs and medicines. These can increase your chances of quitting for good. When should you call for help? Call 911 anytime you think you may need emergency care. For example, call if: ?? You have severe trouble breathing. Call your doctor now or seek immediate medical care if: ?? You seem to be getting much sicker. ?? You have new or worse trouble breathing. ?? You have a new or higher fever. ?? You have a new rash. Watch closely for changes in your health, and be sure to contact your doctor if: ?? You have a new symptom, such as a sore throat, an earache, or sinus pain. ?? You cough more deeply or more often, especially if you notice more mucus or a change in the colorof your mucus. ?? You do not get better as expected. Where can you learn more? Go to Mlog/Venuelabsrary and enter K520 in the search box. Current as of: June 11, 2015 Content Version: 108 ?? [id number] [employer]. HERE IS WHAT YOU NEED TO DO Call your clinic if: You develop new symptoms Your symptoms worsen unexpectedly You are not improving as expected You have questions about your visit or medications Your to do list Future Orders Complete By Ordering Dept. PHYSICAL THERAPY CONSULT ADULT/PEDS ([facility]) As directed [facility] Scheduling Instructions: Your provider has recommended an appointment with [facility]. You may call [phone] to schedule your appointment. If you prefer, a supervisor money room will contact you within the next 3 business days to assist you in setting up this appointment. This recommended service/s may not be covered by your insurance coverage. To find out your specific benefit coverage, please call the number on your insurance card. HERE IS INFORMATION FROM TODAY'S VISIT Reason for Visit Cough x 2 weeks Vaginal Discharge Reason for Visit History Health issues considered by your clinician today Acute vaginitis Viral URI Urinary tract infection, site unspecified (HRC) BV (bacterial vaginosis) If you had any tests, you will be notified of your abnormal results by your clinic. We Performed the Following Urinalysis Routine(Micro If Pos): Urine Microscopic Wet Prep: XR Chest * PA and Left Lateral (Standard) Results Urinalysis Routine(Micro If Pos): Component Value Standard Range & Units Urine Type Urine:clean cat Turbidity Clear Clear U Bili Negative Negative Blood Urine Negative Negative Glucose, Qualitative U Negative Neg-30 mg/dL Ketones Negative Negative Leukocyte Esterase Urine Small Negative Nitrite Urine Negative Negative pH Urine 7.5 5.0-8.0 Protein Urine Negative Neg - Trace mg/dL U Specific [place] 1.015 1.005 - 1.030 Urobilinogen Urine Negative Negative Eu/dL Wet Prep: Component Value Standard Range & Units WETPR White Blood Cells Moderate None Seen - Moderate WETPR Epithelial Cells Many WETPR Yeast None Seen None Seen - Rare WETPR Trichomonas None Seen None Seen WETPR Clue Cells Moderate None Seen - Few Wet Prep Source Cervix/Vaginal: Urine Microscopic Component Value Standard Range & Units Urine WBC 0-2 0 - 4 /HPF Urine RBC 0-2 0 - 2 /HPF Bacteria Urine Moderate /HPF Epithelial Cells Moderate /HPF Medications administered today None MEDICATIONS As of today's visit, these are your current medications DOSAGE acetaminophen (TYLENOL) 500 mg tablet Take 1-2 tablets by mouth every 4 hours as needed. LW Addl Instr:Maximum 8 tablets/day benzonatate (TESSALON) 100 mg capsule Take 1 capsule by mouth every 8 hours for 10 days. ciprofloxacin HCl (CIPRO) 500 mg tablet Take 1 tablet by mouth 2 times daily for 7 days. ibuprofen (MOTRIN) 800 mg tablet Take 1 tablet by mouth NEEDED PRN. LW Addl Instr:Take with food. metroNIDAZOLE (FLAGYL) 500 mg tablet Take 1 tablet by mouth 2 times daily. op medications reviewed Vital signs from your visit Your Vital Signs Were BP Pulse Temp(Src) Resp Last Period Smoking Status 128/84 mmHg 89 36.4 ??C (97.6 ??F) (Oral) 20 01/21/2016 (Approximate) Current Every Day Smoker Allergies as of 02/18/2016 No Known Allergies Immunization History Reviewed on 01/11/2012 DTP 03/12/1990, 10/29/1989, 03/03/1985, [birth year] HEP B 07/02/2012 Hib (ActHIB) 08/21/1986 INFLUENZA TIV 0.5 ML (36+ MOS) 07/02/2012 MMR 03/02/1986 Oral Polio Vaccine 03/12/1990, 10/29/1989, 03/03/1985, 1985, 1985 TDAP (BOOSTRIX) 07/02/2012 About You Date Of Sex Race Ethnicity Preferred Language 1985 Female White Non- [place]er This document contains confidential information about your health and care. It is provided directlyto you for your personal, private use only. documented in this encounter Plan of Treatment Not on filedocumented as of this encounter Procedures Procedure Name Priority Date/Time Associated Comments Diagnosis XR CHEST 2 VIEWS Routine 02/18/2016 4:16 PM Acute vagini tis Results for this CDT Viral URI procedure are i n the results section. URINE MICROSCOPIC STAT 02/18/2016 3:40 PM Resu lts for this CDT procedure are i n the results section. WET PREP STAT 02/18/2016 3:40 PM Acute vaginit is Results for this CDT Viral URI procedure are i n the results section. URINALYSIS STAT 02/18/2016 3:40 PM Acute vaginit is Results for this ROUTINE(MICRO IF POS) CDT Viral URI proced ure are in the results section. documented in this encounter Results XR Chest 2 Views (02/18/2016 4:16 PM CDT) Anatomical Region Laterality Modality Chest, Lung Other Specimen (Source) Anatomical Location Collection Method / Collectio n Time Received Time / Laterality Volume Narrative 02/18/2016 4:17 PM CDT COMPARISON: ??None. FINDINGS: Two views were obtained. ??The lungs and costophrenic angles are clear. ??Heart size and pulmonary vascularity are within normal limits. ??No pleural effusion. Bony thorax is unremarkable. Procedure Note Juan Antonio Callejas MD - 04/09/2016Fo rmatting of this note might be different from the original. COMPARISON: None. FINDINGS: Two views were obtained. The l ungs and costophrenic angles are clear. Heart size and pulmonary vascularity are within normal limits. No pleural effusion. Bony thorax is unremarkable. Awilda Trivedi MD RAD GD (ABNORMAL) URINE MICROSCOPIC (02/18/2016 3:40 PM CDT) [facility] batterii Method Time Signature Urine WBC 0-2 0 - 4 HP CONVERSION /HPF Urine RBC 0-2 0 - 2 HP CONVERSION /HPF Bacteria Urine Moderate (A) /HPF HP CONVERSIO N Epithelial Moderate /HPF HP CONVERSION Cells Specimen Anatomical Collection Method Collection Time Receive d Time (Source) Location / / Volume Laterality 02/18/2016 3:40 PM 6 3:46 CDT PM CDT Narrative HP CONVERSION - 02/18/2016 4:04 PM CDT Performed at [facility], [address] [place] [address] CLIA number [id number] Awilda Trivedi MD LAB_1 Performing Organization Address City/State/ZIP Code Phon e Number HP CONVERSION (ABNORMAL) WET PREP (02/18/2016 3:40 PM CDT) [facility] batterii Method Time Signature WETPR White Moderate None Seen - HP CONVERSION Blood Cells Moderate WETPR Many HP CONVERSION Epithelial Cells WETPR Yeast None Seen None Seen - HP CONVERSION Rare WETPR None Seen None Seen HP CONVERSION Trichomonas WETPR Clue Moderate (A) None Seen - HP CONVERSION Cells Few Wet Prep Source Cervix/Vagin HP CONVERSI ON al: Specimen Anatomical Collection Method Collection Time Receive d Time (Source) Location / / Volume Laterality 02/18/2016 3:40 PM 6 3:46 CDT PM CDT Narrative HP CONVERSION - 02/18/2016 3:51 PM CDT Performed at [facility], [facility] [address] [place] [address] CLIA number [id number] Awilda Trivedi MD LAB_1 Performing Organization Address [facility] Phon e Number HP CONVERSION (ABNORMAL) URINALYSIS ROUTINE(MICRO IF POS) (02/18/2016 3:40 PM CDT) [facility] Method Time Signature Urine Type Urine:clean HP CONVERSION cat Turbidity Clear Clear HP CONVERSION U BILI Negative Negative HP CONVERSION Blood Urine Negative Negative HP CONVERSION Glucose, Negative Neg-30 HP CONVERSION Qualitative U mg/dL Ketones Negative Negative HP CONVERSION Leukocyte Small (A) Negative HP CONVERSION Esterase Urine Nitrite Urine Negative Negative HP CONVERSION pH Urine 7.5 5.0 - 8.0 HP CONVERSION Protein Urine Negative Neg - Trace HP CONVERSION mg/dL U Specific 1.015 1.005 - HP CONVERSION [place] 1.030 Urobilinogen Negative Negative HP CONVERSION Urine Eu/dL Specimen Anatomical Collection Method Collection Time Receive d Time (Source) Location / / Volume Laterality Urine: 02/18/2016 3:40 PM 6 3:46 CDT PM CDT Narrative HP CONVERSION - 02/18/2016 4:04 PM CDT Performed at [facility], [facility] [address] [place] [address] CLIA number [id number] Awilda Trivedi MD LAB_1 Performing Organization Address [facility] Phon e Number HP CONVERSION documented in this encounter Visit Diagnoses Diagnosis Acute vaginitis Vaginitis and vulvovaginitis, unspecifie d Viral URI Acute upper respiratory infections of un specified site Urinary tract infection, site unspecifie d BV (bacterial vaginosis) Vaginitis and vulvovaginitis, unspecifie d Triage Assessment Note - Marilou Odonnell LPN - 02/18/2016 2:47 PM CDT Pt. here for cough x 2 weeks, over past few days it is worse. Also noticing vaginal discharge, urinary odor, urine is darker than normal. Denies dysuria, hematuria, frequency, urgency. Has back pain but thinks that is more due to the coughing. E CARE NURSE PRACTITIONER documented in this encounter Care Teams Spray Gun Operator Relationship Specialty Start Date End Date Needs Pcp, Assignment PCP - General 02/18/16 08/08/16 [place] [address] documented as of this encounter
--- OUTSIDE RECORDS SUMMARY | 2022-06-01 10:57 | XMS_ITS | Encounter Summary ---
:1985 Author [facility] Address [address] [place] [address] Care Team Providers Name Role Phone Needs Pcp, Assignment Primary Care Provider Reason for Visit Reason Onset Date Comments Other 07/31/2016 Encounter Details Date Type Department Care Team Description 07/31/2016 Telephone CODING DEPT ONLY 5050 Needs Pcp, Assignment Other FAMILY MEDICINE [place] [facility] [address] [place] [address] [address] Social History Tobacco Use Types Packs/Day Years [...] on filedocumented in this encounter Care Teams Health Unit Clerk Relationship Specialty Start Date End Date Needs Pcp, Assignment PCP - General 02/18/16 08/08/16 [place] [address] documented as of this encounter
--- OUTSIDE RECORDS SUMMARY | 2022-06-01 10:57 | XMS_ITS | Encounter Summary ---
:1985 Author Organization [facility] Address [address], [place] [address] Care Team Providers Name Role Phone Unassigned, Provider Primary Care Provider Unavailable Encounter Details Date Type Department Care Team Description 02/21/2011 PN Conversion Only CONVERSION CONVERSION Social History Tobacco Use Types Packs/Day Years Used Date Smoking Tobacco: Never Assessed Sex Assigned at Date Recorded Not on file documented as of this encounter Plan of Treatment Not on filedocumented as of this encounter Visit Diagnoses Not on filedocumented in this encounter Care Teams Browning Processor Relationship Specialty Start Date End Date Unassigned, Provider PCP - General 12/01/00 02/17/16 [address] [place] [address] documented as of this encounter
--- OUTSIDE RECORDS SUMMARY | 2022-06-01 10:57 | XMS_ITS | Encounter Summary ---
:1985 Author Organization [facility] Address [address] [place] [address] Care Team Providers Name Role Phone Unassigned, Provider Primary Care Provider Unavailable Encounter Details Date Type Department Care Team Description 05/04/2009 Office Visit Katty Odom, RN Obstetrics/Gynecolog y [address] [place] [address] Social History Tobacco Use Types Packs/Day Years Used Date Smoking Tobacco: Never Assessed Sex Assigned at Date Recorded Not on file documented as of this encounter Last Filed Vital Signs Vital Sign Reading Time Taken Comments Blood Pressure 110/70 05/04/2009 11:26 AM CDT Pulse - - Temperature - - Respiratory Rate - - Oxygen Saturation - - Inhaled Oxygen Concentration - - Weight 55.8 kg (122 lb 15.9 oz) 05/04/2009 11:26 AM C: 55.8kg CDT Height 165.1 cm (5' 5) 05/04/2009 11:26 AM C: 165.1cm CDT Body Mass Index 20.47 05/04/2009 11:26 AM CDT documented in this encounter Progress Notes Katty Armstrong, PASSENGER CAR CLEANING SUPERVISOR, PACKAGING SALES CONSULTANT - 05/04/2009 12:01 AM CDT Progress Notes signed by BALAJI Kwan at 05/04/09 1254 Author: BALAJI Kwan Service: (none) Author Type: Nurse Practitioner Filed: 02/11/11 1441 Note Time: 05/04/09 0001 Status: Signed High School Teacher: BALAJI Kwan (Nurse Practitioner) Post- Visit SUBJECTIVE: Betty is a 23 year old female who presents to clinic for a routine exam. : Normal , without complications. Delivery History: : Date of Delivery: 03/23/09 Gestational Age: 38 weeks Type of Delivery: Vaginal delivery with episiotomy Name: Kinga Sex: Female Weight: 6 pounds 7 ounces Course: Perineum: Nonpainful Lochia: Stopped LMP: No menses since delivery Resumed intercourse: Yes Work plans: Unknown Post depression: Patient has felt down since delivery and cries often. She feels more emotional and thinks that she may have post depression. Denies suicidal ideation. PHQ-9 score is 12. Breast/bottle feeding: Bottle Contraception: Interested in pills. Last pap smear: 09/28 Other Health Information: With the exception of any notes below, patient's past history, family history, and social history were all reviewed today and unchanged from the record. Except as noted, a complete review of systems was found to be negative. Adverse Drug Reactions: Pt's Adverse Drug Reactions were reviewed and updated today on the [facility]. Medications: Reviewed and updated today on Health Profile in [facility]. Tobacco: None. OBJECTIVE: Blood Pressure: 110/70 Height: 65 inches Current Weight: 123 pounds General: Well-developed, well-nourished, and in no apparent distress. Abdomen: Soft, nontender without organomegaly, masses, hernias or inguinal adenopathy. Pelvic: External Genitalia: Normal without lesions. Perineum: Well healed without granulation tissue or tenderness. Bartholin's glands, urethra, [place]'s 9glands without lesions. Vagina: [place], moist and without lesions. Cervix: :Without lesions. Corpus: Normal size, shape and consistency. Adnexa: Nontender and without masses. Hemorrhoids: Hemorrhoidal problems not evident. Psychiatric: Patient's affect appeared normal. ASSESSMENT: Normal exam. depression PLAN: Zoloft 50 mg, take one half tablet daily for 7 days, then increase to one full tablet daily. Follow up in 3 months for recheck of depression. Call if symptoms do not improve. Due for pap smear after 09/29. *SH~DNS~PP documented in this encounter Plan of Treatment Not on filedocumented as of this encounter Visit Diagnoses Not on filedocumented in this encounter Care Teams Assistant Professor Of Business Relationship Specialty Start Date End Date Unassigned, Provider PCP - General 12/01/00 02/17/[address] [place] [address] documented as of this encounter
--- OUTSIDE RECORDS SUMMARY | 2022-06-01 10:57 | XMS_ITS | Encounter Summary ---
:1985 Author Organization [facility] Address [address] [address] Care Team Providers Name Role Phone Unassigned, Provider Primary Care Provider Unavailable Reason for Visit Reason Comments Rash Cough Pharyngitis Encounter Details Date Type Department Care Team Description 08/19/2013 Office Visit [facility] Mingo Terrell M D Skin lesion (Primary Dx); Medicine [address] Tinea versicolor; [address] [place], [place] [phone] Social History Tobacco Use Types Packs/Day Years Used Date Smoking Tobacco: Never Assessed Sex Assigned at Date Recorded Not on file documented as of this encounter Last Filed Vital Signs Vital Sign Reading Time Taken Comments Blood Pressure 100/78 08/19/2013 4:13 PM CDT Pulse 60 08/19/2013 4:13 PM CDT Temperature 36.8 ??C (98.2 ??F) 08/19/2013 4:13 PM CDT Respiratory Rate 15 08/19/2013 4:13 PM CDT Oxygen Saturation - - Inhaled Oxygen Concentration - - Weight 55 kg (121 lb 4.8 oz) 08/19/2013 4:13 PM CDT Height 166.4 cm (5' 5.5) 08/19/2013 4:13 PM CDT Body Mass Index 19.88 08/19/2013 4:13 PM CDT documented in this encounter Progress Notes Mingo Terrell MD - 08/19/2013 5:37 PM CDT Progress Notes signed by Mingo Terrell MD at 08/21/131101 Author: Mingo Terrell MD Service: (none) Author Type: Physician Filed: 08/21/131101 Note Time: 08/20/13822 Status: Signed Coal Gasification Technician: Mingo Terrell MD (Physician) NAME: TELLO TERRELL MR#: [id number] CSN: [id number] AUTHENTICATING CLINICIAN: Mingo Terrell MD CONFIRM #: [id number] LOC: 4402 CLINIC PROGRESS NOTE DATE OF VISIT: 08/19/2013 : 1985 SUBJECTIVE: A 27-year-old, female. She is here with her daughter. 1. The patient complains about rash in her left lower leg, on the lateral side, for a couple months.She has a te-moak around it. She used uivk-uil-ojnicdr ringworm cream in the last 3 days, and she came here to recheck it. 2. She complains also of some white patch on her back. This is chronic, going on for a long time. The patient admits, in the past, they will treat her with some medication they give to her to take it and go sweat with it, an indication of Lamisil or some antifungal medication, but the patient has alsosome kidney issue, chronic problem. 3. She has also postnasal drip and cough. She has a history of allergies. She has a sore throat and wants to check for strep. 4. Just before she leaves, she also mentions some anxiety and depression, and she refused, in the past, to take medication, and she discussed about that later on. REVIEW OF SYSTEMS: Above. Otherwise, her HEENT, neck, lung, cardiovascular, GI, skeletal, muscle negative. OBJECTIVE: VITAL SIGNS: Blood pressure is 100/78, pulse 60, respirations 16, temperature 98. Body mass index is19.92. Alert, oriented, in no distress. Ears clear. Nose mucosa pale, atrophic, clear discharge. Oral cavity, pharynx, uvula, with the exception of postnasal drip, otherwise unremarkable. Sinuses: No tenderness. NECK: No enlarged lymph nodes. LUNGS: Clear. HEART: S1, S2, without murmur. SKIN: On the back, as well as on the chest, the patient has multiple white, patchy lesions, indication of tinea versicolor. On her left lateral foot, she has a te-moak in the size of a quarter. The center is clearing, advancing at the edges, and it is scaly and itching. ASSESSMENT: 1. Upper respiratory symptoms, possible allergies. 2. Tinea versicolor. 3. Tinea corporis, ringworm versus psoriasis I think. She admits that her brother has some lesions on his elbow that are thick and quite, concerned about psoriasis. But she has only the lesion. It is has just been only over 3 weeks. PLAN: 1. For her tinea versicolor, I am going to used selenium sulfide suspension to use it as instructed. 2. Use some Dermazene cream 1.1% cream b.i.d. for 7-10 days for the leg. Rapid strep was negative. TAWANNA also was negative, but she was using hsad-aoz-hijzqal medication for depression, anxiety. She will make an appointment and come back. Any concern, back to the clinic. Otherwise, will follow up as above. She agreed. YO:MEDQ C: CONFIRM #: [id number] documented in this encounter Plan of Treatment Not on filedocumented as of this encounter Procedures Procedure Name Priority Date/Time Associated Diagnosis Comme nts BETA STREP FOLLOWUP Routine 08/19/2013 5:39 PM Re sults for this CDT procedure are i n the results section. GROUP A STREP Routine 08/19/2013 5:28 PM Acute pharyngitis Res ults for this ANTIGEN SCREEN CDT procedure are in the results section. TAWANNA PREP Routine 08/19/2013 5:00 PM Skin lesion Results f or this CDT procedure are i n the results section. documented in this encounter Results BETA STREP FOLLOWUP (08/19/2013 5:39 PM CDT) [facility] Method Time Signature Source Throat HP CONVERSION Site HP CONVERSION Strep Screen No beta HP CONVERSION hemolytic Strep Group A isolated. Specimen (Source) Anatomical Collection Method Collection Time Re ceived Time Location / / Volume Laterality Throat: 08/19/2013 5:39 PM CDT Mingo Terrell MD LAB_1 Performing Organization Address City/State/ZIP Code Phon e Number HP CONVERSION RAPID STREP GROUP A WAIVED (08/19/2013 5:28 PM CDT) Analysis Performed At [facility] logist Time Signature Strep A Negative Negative HP CONVERSION Antigen Strep A Source Throat: HP CONVERSION Specimen Anatomical Collection Method Collection Time Receive d Time (Source) Location / / Volume Laterality 08/19/2013 5:28 PM 3 5:39 CDT PM CDT Narrative HP CONVERSION - 08/19/2013 5:43 PM CDT Performed at [facility], [address] [place] [address] Mingo Terrell MD LAB_1 Performing Organization Address [facility] Phon e Number HP CONVERSION TAWANNA Prep (08/19/2013 5:00 PM CDT) [facility] gist Method Time Signature TAWANNA Yeast None Seen HP CONVERSION TAWANNA Fungus None Seen HP CONVERSION TAWANNA Pseudo None Seen HP CONVERSION Hypae TAWANNA Source Skin HP CONVERSION Scraping ( Specimen Anatomical Collection Method Collection Time Receive d Time (Source) Location / / Volume Laterality 08/19/2013 5:00 PM 3 5:01 CDT PM CDT Narrative HP CONVERSION - 08/19/2013 5:02 PM CDT Performed at [facility], [address] [place] [address] Mingo Terrell MD LAB_1 Performing Organization Address City/[facility]/ZIP Code Phon e Number HP CONVERSION documented in this encounter Visit Diagnoses Diagnosis Skin lesion - Primary Unspecified disorder of skin and subcuta neous tissue Tinea versicolor Pityriasis versicolor Acute pharyngitis documented in this encounter Care Teams Share Dairy Farmer Relationship Specialty Start Date End Date Unassigned, Provider PCP - General 12/01/00 02/17/16 [address] [place] [address] documented as of this encounter
--- OUTSIDE RECORDS SUMMARY | 2022-06-01 10:57 | XMS_ITS | Encounter Summary ---
:1985 Author Organization [facility] Address [address] [place] [address] Care Team Providers Name Role Phone Unassigned, Provider Primary Care Provider Unavailable Encounter Details Date Type Department Care Team Description 03/23/2009 PN Conversion Only OTHER CONVERSION [address] [place] [address] Social History Tobacco Use Types Packs/Day Years Used Date Smoking Tobacco: Never Assessed Sex Assigned at Date Recorded Not on file documented as of this encounter Plan of Treatment Not on filedocumented as of this encounter Visit Diagnoses Not on filedocumented in this encounter Care Teams Parts Room Associate Relationship Specialty Start Date End Date Unassigned, Provider PCP - General 12/01/00 02/17/[address] [place] [address] documented as of this encounter
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
--- OUTSIDE RECORDS SUMMARY | 2022-06-01 10:57 | XMS_ITS | Encounter Summary ---
:1985 Author Organization [facility] Address [address], [place] [address] Care Team Providers Name Role Phone Unassigned, Provider Primary Care Provider Unavailable Encounter Details Date Type Department Care Team Description 11/26/2008 Routine Igor Burroughs Obstetrics/[place] [address] [facility] [address] [place] [address] [place] [address] [phone] (Wo rk) Social History Tobacco Use Types Packs/Day Years Used Date Smoking Tobacco: Never Assessed Sex Assigned at Date Recorded Not on file documented as of this encounter Last Filed Vital Signs Vital Sign Reading Time Taken Comments Blood Pressure 102/60 11/26/2008 2:28 PM APPEALS WRITER Pulse - - Temperature - - Respiratory Rate - - Oxygen Saturation - - Inhaled Oxygen Concentration - - Weight 60.1 kg (132 lb 7.9 oz) 11/26/2008 2:28 PM C: 60 .1kg APPEALS WRITER Height 165.1 cm (5' 5) 11/26/2008 2:28 PM C: 165.1cm APPEALS WRITER Body Mass Index 22.05 11/26/2008 2:28 PM APPEALS WRITER documented in this encounter Plan of Treatment Not on filedocumented as of this encounter Visit Diagnoses Not on filedocumented in this encounter Care Teams Rubber Gasket Inspector Trimmer Relationship Specialty Start Date End Date Unassigned, Provider PCP - General 12/01/00 02/17/[address] [place] [address] documented as of this encounter
--- OUTSIDE RECORDS SUMMARY | 2022-06-01 10:57 | XMS_ITS | Encounter Summary ---
:1985 Author Organization [facility] Address [address], [place] [address] Care Team Providers Name Role Phone Unassigned, Provider Primary Care Provider Unavailable Reason for Visit Reason Comments DIZZINESS Back Pain Encounter Details Date Type Department Care Team Description 01/04/2015 Telephone [facility] Pcp, DIZZINESS; Back Pain Medicine Assignment [address] [place] [phone] Social History Tobacco Use Types Packs/Day Years Used Date Smoking Tobacco: Never Assessed Sex Assigned at Date Recorded Not on file documented as of this encounter Nursing Notes Starla Garcia - 01/04/2015 1:28 PM CDT Pt states she has been experiencing back pain and dizziness for the past four days. Pt states she did not want to talk with a nurse and is coming in today. documented in this encounter Plan of Treatment Not on filedocumented as of this encounter Visit Diagnoses Not on filedocumented in this encounter Care Teams Coal Wheeler Relationship Specialty Start Date End Date Unassigned, Provider PCP - General 12/01/00 02/17/[address] [place] [id number] documented as of this encounter
--- OUTSIDE RECORDS SUMMARY | 2022-06-01 10:57 | XMS_ITS | Encounter Summary ---
:1985 Author Organization On license of [facility] Address [address], [place] [address] Care Team Providers Name Role Phone Unassigned, Provider Primary Care Provider Unavailable Encounter Details Date Type Department Care Team Description 03/04/2009 Routine [place] Heri Nesbitt MD Obstetrics/Gynecolog y [address] [facility] [address] [place], [place] [phone] (Wo rk) Social History Tobacco Use Types Packs/Day Years Used Date Smoking Tobacco: Never Assessed Sex Assigned at Date Recorded Not on file documented as of this encounter Last Filed Vital Signs Vital Sign Reading Time Taken Comments Blood Pressure 108/68 03/04/2009 11:57 AM CDT Pulse - - Temperature - - Respiratory Rate - - Oxygen Saturation - - Inhaled Oxygen Concentration - - Weight 66.9 kg (147 lb 7.8 oz) 03/04/2009 11:57 AM C: 6 6.9kg CDT Height - - Body Mass Index 24.54 02/18/2009 12:06 PM CDT documented in this encounter Plan of Treatment Not on filedocumented as of this encounter Visit Diagnoses Not on filedocumented in this encounter Care Teams Iron Guardrail Installer Relationship Specialty Start Date End Date Unassigned, Provider PCP - General 12/01/00 02/17/16 [address] [place] [address] documented as of this encounter
--- OUTSIDE RECORDS SUMMARY | 2022-06-01 10:57 | XMS_ITS | Encounter Summary ---
:1985 Author Organization [facility] Address [address] [place] [address] Care Team Providers Name Role Phone Unassigned, Provider Primary Care Provider Unavailable Encounter Details Date Type Department Care Team Description 01/06/2009 PN Conversion Only [place] [address] [address] [place] [address] Social History Tobacco Use Types Packs/Day Years Used Date Smoking Tobacco: Never Assessed Sex Assigned at Date Recorded Not on file documented as of this encounter Plan of Treatment Not on filedocumented as of this encounter Visit Diagnoses Not on filedocumented in this encounter Care Teams Fisher Net Relationship Specialty Start Date End Date Unassigned, Provider PCP - General 12/01/00 02/17/[address] [place] [address] documented as of this encounter
--- OUTSIDE RECORDS SUMMARY | 2022-06-01 10:57 | XMS_ITS | Encounter Summary ---
:1985 Author Organization [facility] Address [address] [place] [address] Care Team Providers Name Role Phone Unassigned, Provider Primary Care Provider Unavailable Encounter Details Date Type Department Care Team Description 07/02/2012 Lab Visit [facility] [address] [place] [address] Social History Tobacco Use Types Packs/Day Years Used Date Smoking Tobacco: Never Assessed Sex Assigned at Date Recorded Not on file documented as of this encounter Progress Arielle Theodore - 07/03/2012 4:47 PM CDT Quick Note: Changed to Nitrofurantoin documented in this encounter Miscellaneous Notes Miscellaneous - 02/09/2017 5:33 AM CDTNotes Recorded by Arielle Blevins PA-C on 07/03/2012 at 4:47 PMChanged to Nitrofurantoin Miscellaneous - 12/01/2016 2:49 PM CSTNotes Recorded by Arielle Blevins PA-C on 07/03/2012 at 4:47 PMChanged to Nitrofurantoin PSYCHIATRY Miscellaneous - 12/01/2016 2:49 PM CSTNotes Recorded by Arielle Blevins PA-C on 07/03/2012 at 4:47 PMChanged to Nitrofurantoin PSYCHIATRY documented in this encounter Plan of Treatment Not on filedocumented as of this encounter Procedures Procedure Name Priority Date/Time Associated Comments Diagnosis URINE CULTURE STAT 07/02/2012 12:45 Results fo r this PM CDT procedure are i n the results section. URINE MICROSCOPIC STAT 07/02/2012 12:08 Result s for this PM CDT procedure are i n the results section. URINALYSIS ROUTINE, STAT 07/02/2012 12:08 Dysuria Resu lts for this MICRO/CULTURE IF POS PM CDT procedu re are in the results section. documented in this encounter Results Urine Culture (07/02/2012 12:45 PM CDT) Component Value Ref Test Analysis Performed At [facility] Range Method Time Signature Urine Culture HP CONVERSION Urine Culture Escherichia coli HP CONVER NA >100,000 cfu/ml Microbiology ESCHERICHIA HP CONVERSION Component COLI Comment: Escherichia coli Specimen (Source) Anatomical Collection Method Collection Time Re ceived Time Location / / Volume Laterality Urine: 07/02/2012 12:45 PM CDT Transcriptions 02/09/2017 5:33 AM CDTNotes Recorded by Arielle Blevins PA-C on 07/03/2012 at 4:47 PMChanged to Nitrofurantoin Organism Antibiotic Method Susceptibility Escherichia coli Amikacin <=2: Sensitive Escherichia coli Ampicillin >=32: Resistant Escherichia coli Ampicillin/Sulbactam 16: Interm ediate Escherichia coli Cefazolin <=4: Sensitive Escherichia coli Cefoxitin 8: Sensitive Escherichia coli Ceftazidime <=1: Sensitive Escherichia coli Ceftriaxone <=1: Sensitive Escherichia coli Ciprofloxacin <=0.25: Sensiti ve Escherichia coli Ertapenem <=0.5: Sensitiv e Escherichia coli Gentamicin <=1: Sensitive Escherichia coli Imipenem <=1: Sensitive Escherichia coli Nitrofurantoin 32: Sensitive Escherichia coli Tobramycin <=1: Sensitive Escherichia coli Trimethoprim/Sulfamethoxazole > =320: Resistant Comment: ? ORDERED BY: ARIELLE BLEVINS SOURCE: Urine ?COLLECTED: ??07/02/12 12:45 ? PLATED: ? 07/02/12 12:45 Culture Urine ?FINAL ? 07/03/12 15:36 ? >100,000 cfu/ml Esche richia coli ?E.coli ? ANTIBIOTICS ?GIANLUCA ? ? INTRP ? Amikacin ? <=2 ? S ? Ampicillin ? >=32 ?R ? Ampicillin/sulbac ?? 16 ? I ? Cefazolin ?<=4 ? S ? Cefoxitin ? 8 ?S ? Ceftazidime ?<=1 ? S ? Ceftriaxone ?<=1 ? S ? Ciprofloxacin ? <=0.25 ? ? S ? Ertapenem ? <=0.5 ?S ? Gentamicin ? <=1 ? S ? Imipenem ? <=1 ? S ? Nitrofurantoin ?32 ? S ? Tobramycin ? <=1 ? S ? Trimethoprim/Sulf >=320 ?R ? S=SUSCEPTIBLE I=INTERMEDIAT E R=RESISTANT NS=NON-SUSCEPTIBLE Further treatment guidelines are under Medical Quick Clicks Antibiograms. Arielle Gibson PA-C LAB_1 Performing Organization Address City/State/ZIP Code Phon e Number HP CONVERSION (ABNORMAL) URINE MICROSCOPIC (07/02/2012 12:08 PM CDT) [facility] Method Time Signature Urine WBC 0-2 0 - 4 HP CONVERSION /HPF Urine RBC 0-2 0 - 2 HP CONVERSION /HPF Bacteria Moderate (A) /HPF HP CONVERSION Urine Comment: Urine culture has been orde red per reflex protocol. Epithelial Cells Few /HPF HP CONVERSION Specimen Anatomical Collection Method Collection Time Receive d Time (Source) Location / / Volume Laterality 07/02/2012 12:08 07/02/2012 PM CDT 12:08 PM CDT Narrative HP CONVERSION - 07/02/2012 12:22 PM CDT Performed at [facility] [address] [place] [address] Transcriptions 12/01/2016 2:49 PM CSTNotes Recorded by Arielle Blevins PA-C on 07/03/2012 at 4:47 PMChanged to Nitrofurantoin Arielle Blevins LAB_1 Performing Organization Address City/[facility] Code Phon e Number HP CONVERSION (ABNORMAL) URINALYSIS ROUTINE, MICRO/CULTURE IF POS (07/02/2012 12:08 PM CDT) [facility] Method Time Signature Urine Type Urine:clean HP CONVERSION cat Turbidity Slightly Clear HP CONVERSION Cloudy (A) U BILI Negative Negative HP CONVERSION Blood Urine Small (A) Negative HP CONVERSION Glucose, Negative Neg-30 HP CONVERSION Qualitative U mg/dL Ketones Negative Negative HP CONVERSION Leukocyte Negative Negative HP CONVERSION Esterase Urine Nitrite Urine Negative Negative HP CONVERSION pH Urine 6.5 5.0 - 8.0 HP CONVERSION Protein Urine Negative Neg - Trace HP CONVERSION mg/dL U Specific 1.020 1.005 - HP CONVERSION [place] 1.030 Urobilinogen Negative Negative HP CONVERSION Urine Eu/dL Specimen Anatomical Collection Method Collection Time Receive d Time (Source) Location / / Volume Laterality Urine: 07/02/2012 12:08 07/02/2012 PM CDT 12:08 PM CDT Narrative HP CONVERSION - 07/02/2012 12:22 PM CDT Performed at [facility] [address] [place] [address] Transcriptions 12/01/2016 2:49 PM CSTNotes Recorded by Arielle Blevins PA-C on 07/03/2012 at 4:47 PMChanged to Nitrofurantoin Arielle Blevins LAB_1 Performing Organization Address [facility] Phon e Number HP CONVERSION documented in this encounter Visit Diagnoses Diagnosis Dysuria documented in this encounter Care Teams Ice Bag Assembler Relationship Specialty Start Date End Date Unassigned, Provider PCP - General 12/01/00 02/17/[address] [place] [address] documented as of this encounter
--- OUTSIDE RECORDS SUMMARY | 2022-06-01 10:57 | XMS_ITS | Encounter Summary ---
:1985 Author Organization [facility] Address [address] [address] Care Team Providers Name Role Phone Unassigned, Provider Primary Care Provider Unavailable Encounter Details Date Type Department Care Team Description 02/04/2009 Routine [place] Katty Armstrong RN Obstetrics/Gynecolog y [address] [place], [place] [phone] Social History Tobacco Use Types Packs/Day Years Used Date Smoking Tobacco: Never Assessed Sex Assigned at Date Recorded Not on file documented as of this encounter Last Filed Vital Signs Vital Sign Reading Time Taken Comments Blood Pressure 108/62 02/04/2009 1:02 PM CDT Pulse - - Temperature - - Respiratory Rate - - Oxygen Saturation - - Inhaled Oxygen Concentration - - Weight 64 kg (140 lb 15.8 oz) 02/04/2009 1:02 PM CDT C: 64.0kg Height - - Body Mass Index 23.46 01/07/2009 1:07 PM CDT documented in this encounter Plan of Treatment Not on filedocumented as of this encounter Visit Diagnoses Not on filedocumented in this encounter Care Teams Senior Program Planner Relationship Specialty Start Date End Date Unassigned, Provider PCP - General 12/01/00 02/17/16 [address] [place] [address] documented as of this encounter
--- OUTSIDE RECORDS SUMMARY | 2022-06-01 10:57 | XMS_ITS | Encounter Summary ---
:1985 Author Organization [facility] Address [address], [place] [address] Care Team Providers Name Role Phone Unassigned, Provider Primary Care Provider Unavailable Encounter Details Date Type Department Care Team Description 03/11/2009 Routine [place] Katty Armstrong RN Obstetrics/Gynecolog y [address] [place], [place] [phone] Social History Tobacco Use Types Packs/Day Years Used Date Smoking Tobacco: Never Assessed Sex Assigned at Date Recorded Not on file documented as of this encounter Last Filed Vital Signs Vital Sign Reading Time Taken Comments Blood Pressure 118/80 03/11/2009 12:04 PM CDT Pulse - - Temperature - - Respiratory Rate - - Oxygen Saturation - - Inhaled Oxygen Concentration - - Weight 67.6 kg (148 lb 15.8 oz) 03/11/2009 12:04 PM C: 67.6kg CDT Height 165.1 cm (5' 5) 03/11/2009 12:04 PM C: 165.1cm CDT Body Mass Index 24.79 03/11/2009 12:04 PM CDT documented in this encounter Plan of Treatment Not on filedocumented as of this encounter Visit Diagnoses Not on filedocumented in this encounter Care Teams Handtools Repairer Relationship Specialty Start Date End Date Unassigned, Provider PCP - General 12/01/00 02/17/16 [address] [place] [address] documented as of this encounter
--- OUTSIDE RECORDS SUMMARY | 2022-06-01 10:57 | XMS_ITS | Encounter Summary ---
:1985 Author Organization [facility] Address [address] [place] [address] Care Team Providers Name Role Phone Unassigned, Provider Primary Care Provider Unavailable Encounter Details Date Type Department Care Team Description 11/08/2011 Lab Visit [facility] [address] [place] [address] Social History Tobacco Use Types Packs/Day Years Used Date Smoking Tobacco: Never Assessed Sex Assigned at Date Recorded Not on file documented as of this encounter Plan of Treatment Not on filedocumented as of this encounter Procedures Procedure Name Priority Date/Time Associated Diagnosis Comme nts IRON BINDING Routine 11/08/2011 2:03 PM Fatigue Results f or this CAPACITY (INCL ACCOUNT SERVICES ASSOCIATE procedure are in IRON) the results section. TSH AND FREE T4 Routine 11/08/2011 2:03 PM Fatigue Result s for this (FRT4 IF TSH ACCOUNT SERVICES ASSOCIATE procedure are i n ABNORM) the results section. VITAMIN D Routine 11/08/2011 2:03 PM Fatigue Results f or this 25-HYDROXY, TOTAL ACCOUNT SERVICES ASSOCIATE procedure are in the results section. COMPLETE BLOOD Routine 11/08/2011 2:03 PM Fatigue Results for this COUNT-NO DIFF ACCOUNT SERVICES ASSOCIATE procedure are in the results section. FERRITIN Routine 11/08/2011 2:03 PM Fatigue Results f or this ACCOUNT SERVICES ASSOCIATE procedure are i n the results section. documented in this encounter Results Ferritin (11/08/2011 2:03 PM ACCOUNT SERVICES ASSOCIATE) P athologist Signature Ferritin Serum 58 10 - 291 HP CONVERSION ng/mL Specimen Anatomical Collection Method Collection Time Receive d Time (Source) Location / / Volume Laterality 11/08/2011 2:03 PM 2 9:12 ACCOUNT SERVICES ASSOCIATE PM ACCOUNT SERVICES ASSOCIATE Arielle Carvajal LAB_1 Performing Organization Address City/State/ZIP Code Phon e Number HP CONVERSION IRON BINDING CAPACITY (INCL IRON) (11/08/2011 2:03 PM ACCOUNT SERVICES ASSOCIATE) athologist Signature Iron, Serum 126 50 - 165 HP CONVERSION ug/dL Iron Binding 260 250 - 450 HP CONVERSION Capacity ug/dL Iron Saturation 48 20 - 55 % HP CONVERSION Specimen Anatomical Collection Method Collection Time Receive d Time (Source) Location / / Volume Laterality 11/08/2011 2:03 PM 2 9:12 ACCOUNT SERVICES ASSOCIATE PM ACCOUNT SERVICES ASSOCIATE Arielle Carvajal LAB_1 Performing Organization Address City/State/ZIP Code Phon e Number HP CONVERSION Hemogram/Plts (11/08/2011 2:03 PM ACCOUNT SERVICES ASSOCIATE) athologist Signature White Blood Cell 7.2 3.8 - 11.0 HP CONVERSIO N Count k/cmm Red Blood Cell 4.49 3.70 - HP CONVERSION Count 5.20 m/cmm Hemoglobin 15.0 11.8 - HP CONVERSION 15.5 g/dL Hematocrit 41.7 35.0 - HP CONVERSION 46.0 % Mean Corpuscular 92.9 80.0 - HP CONVERSION Volume 100.0 fL RDW 11.7 11.0 - HP CONVERSION 15.0 % Platelet Count 173 140 - 450 HP CONVERSION k/cmm Specimen Anatomical Collection Method Collection Time Receive d Time (Source) Location / / Volume Laterality 11/08/2011 2:03 PM 2 2:03 ACCOUNT SERVICES ASSOCIATE PM ACCOUNT SERVICES ASSOCIATE Narrative HP CONVERSION - 11/08/2011 2:05 PM ACCOUNT SERVICES ASSOCIATE Performed at [facility], [address] [place] [address] Arielle Carvajal LAB_1 Performing Organization Address City/State/ZIP [facility] Phon e Number HP CONVERSION Vitamin D 25-Hydroxy, Total (11/08/2011 2:03 PM ACCOUNT SERVICES ASSOCIATE) athologist Signature Vitamin D 25 Oh 34 20 - 80 HP CONVERSION ng/mL Comment: Deficiency = <20 Adequate ??= 20-29 Preferred = 30-50 Uncertain safety = 51-80 High = >80 Specimen Anatomical Collection Method Collection Time Receive d Time (Source) Location / / Volume Laterality 11/08/2011 2:03 PM 2 9:12 ACCOUNT SERVICES ASSOCIATE PM ACCOUNT SERVICES ASSOCIATE Arielle Carvajal LAB_1 Performing Organization Address City/[facility]/ZIP Code Phon e Number HP CONVERSION TSH AND FREE T4 (FRT4 IF TSH ABNORM) (11/08/2011 2:03 PM ACCOUNT SERVICES ASSOCIATE) P athologist Signature Thyroid 2.21 0.20 - HP CONVERSION Stimulating 4.50 mIU/L Hormone Specimen Anatomical Collection Method Collection Time Receive d Time (Source) Location / / Volume Laterality 11/08/2011 2:03 PM 2 9:12 ACCOUNT SERVICES ASSOCIATE PM ACCOUNT SERVICES ASSOCIATE Arielle Carvajal LAB_1 Performing Organization Address City/[facility] Phon e Number HP CONVERSION documented in this encounter Visit Diagnoses Diagnosis Fatigue Other malaise and fatigue documented in this encounter Care Teams Diagnostic Technician Relationship Specialty Start Date End Date Unassigned, Provider PCP - General 12/01/00 02/17/[address] [place] [address] documented as of this encounter
--- OUTSIDE RECORDS SUMMARY | 2022-06-01 10:57 | XMS_ITS | Encounter Summary ---
:1985 Author Organization [facility] Address [address] [address] Care Team Providers Name Role Phone Unassigned, Provider Primary Care Provider Unavailable Encounter Details Date Type Department Care Team Description 01/07/2009 Routine Igor Burroughs Obstetrics/[place] [address] [facility] [address] [place] [address] [place] [address] [phone] (Wo rk) Social History Tobacco Use Types Packs/Day Years Used Date Smoking Tobacco: Never Assessed Sex Assigned at Date Recorded Not on file documented as of this encounter Last Filed Vital Signs Vital Sign Reading Time Taken Comments Blood Pressure 104/62 01/07/2009 1:07 PM CDT Pulse - - Temperature - - Respiratory Rate - - Oxygen Saturation - - Inhaled Oxygen Concentration - - Weight 63 kg (138 lb 15.7 oz) 01/07/2009 1:07 PM CDT C: 63.0kg Height 165.1 cm (5' 5) 01/07/2009 1:07 PM CDT C: 165.1 cm Body Mass Index 23.13 01/07/2009 1:07 PM CDT documented in this encounter Plan of Treatment Not on filedocumented as of this encounter Visit Diagnoses Not on filedocumented in this encounter Care Teams Design Technology Professor Relationship Specialty Start Date End Date Unassigned, Provider PCP - General 12/01/00 02/17/16 [address] [place] [address] documented as of this encounter
--- OUTSIDE RECORDS SUMMARY | 2022-06-01 10:57 | XMS_ITS | Encounter Summary ---
:1985 Author Organization [facility] Address [address] [place] [address] Care Team Providers Name Role Phone Unassigned, Provider Primary Care Provider Unavailable Encounter Details Date Type Department Care Team Description 03/04/2009 [place] [address] [address] [place] [address] [place] [phone] (Wo rk) Social History Tobacco Use Types Packs/Day Years Used Date Smoking Tobacco: Never Assessed Sex Assigned at Date Recorded Not on file documented as of this encounter Plan of Treatment Not on filedocumented as of this encounter Procedures Procedure Name Priority Date/Time Associated Diagnosis Comme nts GROUP B STREP Routine 03/04/2009 2:22 PM Results for this SCREEN (OB PTS) CDT procedure ar e in the results section. documented in this encounter Results Group B Strep Screen (OB Pts) (03/04/2009 2:22 PM CDT) [facility] Time Signature Culture Strep SEE TEXT HP CONVERSION Screen Other Source Comment: Patient: TELLO TERRELL Culture Strep Scr Other Source ?Collected: ??[id number] ??[id number] Source: Vag/Rect ?Processed: ??[id number] ??[id number] ? V Final Report ------ ?[id number] ??[id number] No group A or B Streptococcus isolated Specimen (Source) Anatomical Collection Method Collection Time Re ceived Time Location / / Volume Laterality 03/04/2009 2:22 PM CDT Heri Nesbitt MD LAB_1 Performing Organization Address City/State/ZIP Code Phon e Number HP CONVERSION documented in this encounter Visit Diagnoses Not on filedocumented in this encounter Care Teams Proposal Consultant Relationship Specialty Start Date End Date Unassigned, Provider PCP - General 12/01/00 02/17/16 [address] [place] [address] documented as of this encounter
--- OUTSIDE RECORDS SUMMARY | 2022-06-01 10:57 | XMS_ITS | Encounter Summary ---
:1985 Author Organization [facility] Address [address] [place] [address] Care Team Providers Name Role Phone Unassigned, Provider Primary Care Provider Unavailable Encounter Details Date Type Department Care Team Description 01/04/2015 Lab Visit [facility] Urinary frequency [address] [place] [address] Social History Tobacco Use Types Packs/Day Years Used Date Smoking Tobacco: Never Assessed Sex Assigned at Date Recorded Not on file documented as of this encounter Progress Notes Angela Daniels DO - 01/05/2015 11:29 AM CDT Quick Note: discussed results with patient. No treatment at this time. documented in this encounter Miscellaneous Notes Miscellaneous - 11/30/2016 10:12 AM CSTNotes Recorded by Angela Daniels DO on 01/05/2015 at 11:29 AMdiscussed results with patient. No treatment at this time. S FEEDER documented in this encounter Plan of Treatment Not on filedocumented as of this encounter Procedures Procedure Name Priority Date/Time Associated Comments Diagnosis AUTOMATED URINALYSIS Routine 01/04/2015 4:46 PM Urinary freque ncy Results for this DIPSTICK POCT CDT procedure are in the results section. documented in this encounter Results URINE DIPSTICK NPT ALEC OAKES AND ALEKSANDAR ONLY (01/04/2015 4:46 PM CDT) [facility] Method Time Signature Urine Type Urine:clean HP CONVERSION cat U BILI Negative Negative HP CONVERSION Blood Urine Negative Negative HP CONVERSION Glucose, Negative Neg-30 HP CONVERSION Qualitative U mg/dL Ketones Negative Negative HP CONVERSION Leukocyte Negative Negative HP CONVERSION Esterase Urine Nitrite Urine Negative Negative HP CONVERSION pH Urine 7.5 5.0 - 8.0 HP CONVERSION Protein Urine Negative Neg - Trace HP CONVERSION mg/dL U Specific 1.015 1.005 - HP CONVERSION [place] 1.030 Urobilinogen Negative Negative HP CONVERSION Urine Eu/dL Turbidity Clear Clear HP CONVERSION Color Yellow HP CONVERSION Specimen Anatomical Collection Method Collection Time Receive d Time (Source) Location / / Volume Laterality 01/04/2015 4:46 PM 5 4:46 CDT PM CDT Narrative HP CONVERSION - 01/04/2015 4:50 PM CDT Performed at [facility], [address] [place] [address] Transcriptions 11/30/2016 10:12 AM CSTNotes Recorded by Angela Daniels DO on 01/05/2015 at 11:29 AMdiscussed results with patient. No treatment at this time. Angela Daniels DO LAB_1 Performing Organization Address City/State/[facility] Code Phon e Number HP CONVERSION documented in this encounter Visit Diagnoses Diagnosis Urinary frequency documented in this encounter Care Teams Chief Physical Therapist Relationship Specialty Start Date End Date Unassigned, Provider PCP - General 12/01/00 02/17/16 [address] [place] [address] documented as of this encounter
--- OUTSIDE RECORDS SUMMARY | 2022-06-01 10:57 | XMS_ITS | Encounter Summary ---
:1985 Author Organization [facility] Address [address] [place] [address] Care Team Providers Name Role Phone Unassigned, Provider Primary Care Provider Unavailable Encounter Details Date Type Department Care Team Description 02/04/2009 PN Conversion Only [place] Igor Montgomery [address] [facility] [place] [address] [address] [place], [place] [address] (Wo rk) Social History Tobacco Use Types Packs/Day Years Used Date Smoking Tobacco: Never Assessed Sex Assigned at Date Recorded Not on file documented as of this encounter Plan of Treatment Not on filedocumented as of this encounter Procedures Procedure Name Priority Date/Time Associated Diagnosis Comme nts BETA STREP RESP Routine 02/04/2009 2:05 PM Result s for this CULT CDT procedure are i n the results section. documented in this encounter Results Beta Strep Resp Cult (02/04/2009 2:05 PM CDT) P athologist Signature Strep Screen SEE TEXT HP CONVERSION Comment: Patient: TELLO TERRELL Culture Strep Screen, Throat ?Collected: ??[id number] ??[id number] Source: Throat ?Processed: ??[id number] ??[id number] Final Report ------ ?[id number] ??[id number] No beta hemolytic Strep group A isolated . Specimen (Source) Anatomical Collection Method Collection Time Re ceived Time Location / / Volume Laterality 02/04/2009 2:05 PM CDT Igor Kaufman MD LAB_1 Performing Organization Address City/State/ZIP Code Phon e Number HP CONVERSION documented in this encounter Visit Diagnoses Not on filedocumented in this encounter Care Teams Aquacultural Worker Supervisor Relationship Specialty Start Date End Date Unassigned, Provider PCP - General 12/01/00 02/17/[address] [place] [address] documented as of this encounter
--- OUTSIDE RECORDS SUMMARY | 2022-06-01 10:57 | XMS_ITS | Encounter Summary ---
:1985 Author Organization [employer] Address [address], [place] [address] Care Team Providers Name Role Phone Unassigned, Provider Primary Care Provider Unavailable Reason for Visit Reason Comments Patient Calling Back Encounter Details Date Type Department Care Team Description 11/09/2011 Telephone [facility] Arielle Spence Patient Calling Back [address] [place] [address] Social History Tobacco Use Types Packs/Day Years Used Date Smoking Tobacco: Never Assessed Sex Assigned at Date Recorded Not on file documented as of this encounter Nursing Notes Angie Crockett - 11/09/2011 12:48 PM CST Spoke with pt. Read pt her lab results, which were all within normal limits. Advised pt, per Arielle Carvajal PA-C, that overall stress and change in season can be a strong cause of fatigue, advise to work on rest, daily exercise, healthy eating, quitting smoking. If fatigue remains we can discuss other possible causes such as depression. Pt acknowledged understanding and will call back to schedule a follow-up appointment if the fatigue persists. All questions answered. No further questions or concerns at this time. S ROBOT OPERATOR Lillian Means - 11/09/2011 12:30 PM CST Pt calling back for results. Neida Delcid RN - 11/09/2011 8:57 AM CST Left message for patient to call back for results. S ROBOT OPERATOR Arielle Carvajal - 11/09/2011 8:50 AM CST Please call the patient to inform of normal lab results, no sign of anemia, infection, low thyroid or low vitamin D being cause of fatigue. Overall stress and change in season can be a strong cause of fatigue, advise to work on rest, daily exercise, healthy eating, quitting smoking. If fatigue remainswe can discuss other possible causes such as depression. I will send her a letter with results. documented in this encounter Plan of Treatment Not on filedocumented as of this encounter Visit Diagnoses Not on filedocumented in this encounter Care Teams Tools Administrator Relationship Specialty Start Date End Date Unassigned, Provider PCP - General 12/01/00 02/17/[address] [place] [address] documented as of this encounter
--- OUTSIDE RECORDS SUMMARY | 2022-06-01 10:57 | XMS_ITS | Encounter Summary ---
:1985 Author Organization [facility] Address [address] [place] [address] Care Team Providers Name Role Phone Roselyn Marroquin PA-C Primary Care Provider Reason for Referral Consult/Transfer Care (Routine) - Closed Specialty Diagnoses / Procedures Referred By Contact Refer red To Contact Diagnoses Dysmenorrhea Metrorrhagia Roselyn Marroquin PA-C [address] [place] [address] Referral ID Status Reason Start Date Expiration Date Visits Requ ested Visits Authorized [id number] Closed 08/09/2016 11/08/2017 1 1 Scheduling Instructions Your provider has recommended an appoint ment with [facility]. You may call [phone] to schedule your appointment. If you do not schedule an appointment within the next 1 to 3 business days, we will call you to help arrange your appointment. We sugges t you call your health insurance company about your coverage and benefits for thi s appointment. Reason for Visit Reason Comments Annual Exam Encounter Details Date Type Department Care Team Description 08/09/2016 Office Visit [facility] Roselyn Marroquin, Annual physical exam (Primary Dx); Medicine STU Vaginal discharge; [address] [address] [facility] Urinary frequency; [place], [place] Encounter for screening for lipoid disorders; [id number] Screening for diabetes mellitus; [phone] Dysmenorrhea; (Work) Metrorrhagia; Encounter for smoking cessation counseling Social History Tobacco Use Types Packs/Day Years [...] Sign Reading Time Taken Comments Blood Pressure 104/74 08/09/2016 1:16 PM CDT Pulse 88 08/09/2016 1:16 PM CDT Temperature 36.9 ??C (98.4 ??F) 08/09/2016 1:16 PM CDT Respiratory Rate 16 08/09/2016 1:16 PM CDT Oxygen Saturation - - Inhaled Oxygen Concentration - - Weight 55.3 kg (122 lb) 08/09/2016 1:16 PM CDT Height 167.6 cm (5' 6) 08/09/2016 1:16 PM CDT Body Mass Index 19.69 08/09/2016 1:16 PM CDT documented in this encounter Patient Instructions Patient InstructionsKiRoselyn winston PA-C - 08/09/2016 2:06 PM CDT Here is plan today: 1) Start the Nicoderm CQ patch to quit smoking as directed, recheck in a month. 2) Work on increasing exercise to 30-60min of cardio/strength/yoga at least 4-6 times per week. 3) Start 2,000IU of Vitamin D3 daily like we discussed. 4) Try the Happy Lamp for 30min daily to help with mood and energy. 5) Call COSMETIC ASSEMBLER at number below to schedule to discuss Mirena IUD to help decrease the bleeding and cramping with your periods. 6) I'll notify you of your labs. Thanks, Roselyn Marroquin, PAC. documented in this encounter Progress Notes Kellee Ramey, RN - 08/17/2016 11:01 AM CDT Quick Note: See phone note initated 08/17/2016 to notify pt of pap results Roselyn Marroquin PA-C - 08/11/2016 7:23 AM CDT Quick Note: Sent letter. HRK Roselyn Marroquin PA-C - 08/09/2016 1:31 PM CDT Preventive Exam SUBJECTIVE: 30 y.o. y/o patient presents for a routine preventive physical exam. Additional Concerns: Is fasting for labs. Wants to quit smoking. Did well with the patch in the pastbut going down in dose gave her headaches. Will try it again and do slower taper. She has a little dysuria the past week. Has hx of UTIs and kidney infections. Also having some vaginal discharge the past couple weeks. Some odor and feels uncomfortable. Hasn't tried anything for her symptoms. Has really heavy, crampy periods. Regular. Will check CBC. Discussed Mirena IUD, will send to ambulatory technologist. Currently isn't doing any control. Is OK if she get she states but isn't really trying. Doesn't want to do flu shot. Diet: Healthy, good with fruits and veggies, more protein (good with meat). Whole grains over whiteswhen she can. Minimal soda. Drinks some coffee, pretty good with water. Exercise: Nothing planned. In the past she did pilates 3x per week. 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 Supplements: None. Websphere Administrator History: : No obstetric history on file. LMP: Patient's last menstrual period was 07/17/2016 (exact date). Pap hx: Does patient have history of abnormal pap smear? yes. Years ago. Past Medical, Family, Surgical and Social History, Drug allergies and Medications have been reviewedand updated in [employer] today. Review of Systems: The remainder of complete ROS is negative except as noted above. OBJECTIVE: BP 104/74 mmHg Pulse 88 Temp(Src) 98.4 ??F (36.9 ??C) (Oral) Resp 16 Ht 5' 6 (1.676 m) Wt122 lb (55.339 kg) BMI 19.70 kg/m2 LMP 07/17/2016 (Exact Date) General: Patient alert, in NAD. HEENT: PERRLA. EOMI. Bilateral TM's, external canals normal. Nose: normal mucosa, turbinates, without lesions. Oropharynx normal, normal teeth, gums, tongue, moist mucosa. Skin: Warm, dry, without lesions or rashes noted. Neck: Supple, without thyromegaly, masses or lymphadenopathy. CV: RRR without murmurs, rubs or gallops. Resp: Clear to auscultation b/l without rhonchi, wheezes or rales. Abdomen: Soft, non-tender, without hepatosplenomegaly, masses, or hernias, b/s x 4. Breasts: Non tender b/l, without masses, nipple discharge, erythema, or skin changes. Pelvic: Normal external genitalia and urethra, without lesions noted. Sloan, moist vaginal and cervical mucosa, without lesions, some yellowish discharge. Ovaries non-tender and not enlarged. Uterus non-tender, smooth, not enlarged. Lymphatic: No neck, supraclavicular or axillary lymphadenopathy. Upper extremities: FROM with good strength, without deformities. Lower extremities: FROM, with good strength, without edema, varicosities, or deformity. DP/PT pulses2/4+ b/l. MS: Normal cervical, thoracic and lumbar spine without deformities, non-tender. Neuro: Normal gait, patellar reflexes 2/4+ b/l, biceps reflexes 2/4+ b/l. Psychiatric: Alert & oriented with normal affect and insight, does not appear depressed or anxious. ASSESSMENT: 1. Annual physical exam 2. Vaginal discharge 3. Urinary frequency 4. Encounter for screening for lipoid disorders 5. Screening for diabetes mellitus 6. Dysmenorrhea 7. Metrorrhagia 8. Encounter for smoking cessation counseling (HRC) PLAN: eBtty was seen today for annual exam. Diagnoses and all orders for this visit: Annual physical exam - Pap Test Order Vaginal discharge - Vaginitis Panel, DNA Probe - Chlamydia and GC STD Urinary frequency - UR NPT Hold for Culture; Future Encounter for screening for lipoid disorders - Lipid Panel - LDLD If Trig High; Future Screening for diabetes mellitus - Glucose; Future Dysmenorrhea - CBC - Complete Blood Count-No Diff; Future - TSH And Free T4 (FRT4 If TSH Abnorm); Future - Ob-Spiral Machine Operator Consult Metrorrhagia - CBC - Complete Blood Count-No Diff; Future - TSH And Free T4 (FRT4 If TSH Abnorm); Future - Ob-Spiral Machine Operator Consult Encounter for smoking cessation counseling (HRC) - nicotine (NICODERMCQ) 14 MG/24HR patch; Apply 1 Patch to skin . Other orders - Cancel: Thyroid Stimulating Hormone; Future Here is plan today: 1) Start the Nicoderm CQ patch to quit smoking as directed, recheck in a month. 2) Work on increasing exercise to 30-60min of cardio/strength/yoga at least 4-6 times per week. 3) Start 2,000IU of Vitamin D3 daily like we discussed. 4) Try the Happy Lamp for 30min daily to help with mood and energy. 5) Call COSMETIC ASSEMBLER at number below to schedule to discuss Mirena IUD to help decrease the bleeding and cramping with your periods. 6) I'll notify you of your labs. Thanks, Roselyn Marroquin, PAC. documented in this encounter Plan of Treatment Scheduled Referrals Name Type Priority Associated Diagnoses Order S chedule Ob-Spiral Machine Operator Consult Referral Routine Dysmenorrhea Ordered: 08/09/2016 Metrorrhagia documented as of this encounter Procedures Procedure Name Priority Date/Time Associated Comments Diagnosis VAGINITIS PANEL, DNA Routine 08/09/2016 2:22 PM Vaginal discha rge Results for this PROBE CDT procedure are i n the results section. PAP TEST ORDER Routine 08/09/2016 2:22 PM Annual physical Resu lts for this CDT exam procedure are i n the results section. HPV WITH 16 18 Routine 08/09/2016 2:22 PM Results for this GENOTYPING, CDT procedure are i n CERVICAL/ENDOCERVICA the res ults L section. ANATOMICAL PATH Routine 08/09/2016 2:22 PM Result s for this LIQUID BASED CDT procedure are i n the results section. CHLAMYDIA & GC (14 Routine 08/09/2016 2:22 PM Vaginal discharg e Results for this YEARS AND OLDER) CDT procedure a re in the results section. documented in this encounter Results TSH And Free T4 (FRT4 If TSH Abnorm) (08/09/2016 2:27 PM CDT) P athologist Signature Thyroid 1.30 0.20 - PN SOFT Stimulating 4.50 Hormone uIU/mL Specimen Anatomical Collection Method Collection Time Receive d Time (Source) Location / / Volume Laterality 08/09/2016 2:27 PM 6 6:54 CDT PM CDT Narrative PN SOFT - 08/09/2016 11:28 PM CDT Performed at [facility], [address] [place] [address] CLIA number [id number] Roselyn Marroquin PA-C LAB_1 Performing Organization Address City/[facility] Phon e Number PN SOFT [address] [place] [address] (ABNORMAL) CBC - Complete Blood Count-No Diff (08/09/2016 2:27 PM CDT) Patholo gist Method Time Signature White Blood Cell [...] - 08/09/2016 2:34 PM CDT Performed at [facility] [place], [address] [place] [address] CLIA number [id number] Roselyn Marroquin PA-C LAB_1 Performing Organization Address City/[facility] Phon e Number PN SOFT [address] [place] [address] Glucose (08/09/2016 2:27 PM CDT) P athologist Signature Lab Glucose 91 60 - 100 PN SOFT mg/dL Specimen Anatomical Collection Method Collection Time Receive d Time (Source) Location / / Volume Laterality 08/09/2016 2:27 PM 6 5:08 CDT PM CDT Narrative PN SOFT - 08/09/2016 5:27 PM CDT Performed at [facility] [place], [facility] [address] [id number] CLIA number [id number] Roselyn Marroquin PA-C LAB_1 Performing Organization Address City/[facility] Phon e Number PN SOFT [address] [place] [address] Lipid Panel - LDLD If Trig High [...] - 08/09/2016 5:27 PM CDT Performed at [facility] [place], [address] [place] [address] CLIA number [id number] Roselyn Marroquin PA-C LAB_1 Performing Organization Address City/[facility] Phon e Number PN SOFT [address] [place] [address] Pap Smear (08/09/2016 2:22 PM CDT) Specimen (Source) Anatomical Collection Method Collection Time Re ceived Time Location / / Volume Laterality 08/09/2016 2:22 PM CDT Narrative PN SOFT - 08/16/2016 3:49 PM CDT FINAL GYNECOLOGICAL CYTOLOGY REPORT Pathology #: [id number] ?Date Obtained: 08/09/2016 ? Date Received: 08/10/2016 INTERPRETATION/RESULTS: Atypical squamous cells of undetermined significance (ASCUS). If requested and applicable, HPV testing wi ll be performed and reported separately, per ACOG guidelines. SPECIMEN ADEQUACY: Satisfactory for Evaluation. ??Endocervi eusebio cells/transformation zone component present. Verified on 08/16/2016 ??by JOSE GRUBER MD (electronic signature) CLINICAL NOTES: ?Abnormal bleeding: No, LMP: [phone] [id number], Menstrual status: None ?Apply, Current form of [...] false-negative report s may occur. Performed at [facility], [address] [place] [address] Roselyn Marroquin PA-C LAB_1 Performing Organization Address City/State/ZIP Code Phon e Number PN SOFT [address] [place] [address] (ABNORMAL) HPV with 16 18 Genotyping (08/09/2016 2:22 PM CDT) [facility] Method Time Signature HPV High Risk Not Detected PN SOFT 16 HPV High Risk Not Detected PN SOFT 18 Other HPV High Detected (A) PN SOFT Risk Not 16/18 Comment: ........................................ ................................. The [facility] HPV Test is a qualitative in v itro test for the detection of Human Papillomavirus in Sandra [facility]Path patient specimens. ??The test utilizes amplifica tion [...] and its pe rformance characteristics determined by General acute hospital. It has not been cleared or approved by [facility]. The laboratory is regulated under CLIA as qualified to perform high-complexity testing. This test is used for clinical purposes. It should not be regarded as investigational or fo r research. Specimen Anatomical Collection Method Collection Time Receive d Time (Source) Location / / Volume Laterality 08/09/2016 2:22 PM 6 2:22 CDT PM CDT Narrative PN SOFT - 08/14/2016 12:22 PM CDT Performed at [address] [address] CLIA number [id number] Roselyn Marroquin PA-C LAB_1 Performing Organization Address City/[facility] Phon e Number PN SOFT [address] [place] [address] Chlamydia and GC STD (08/09/2016 2:22 PM CDT) [facility] Method Time Signature Chlamydia Negative Negative PN SOFT Trachomatis STD Comment: Test Performed by Clinical Dermatologist Mediated Amplification CLIA Number [id number] N. gonorrhoeae STD Negative Negative PN SOFT Comment: Test Performed by Clinical Dermatologist Mediated Amplification Performed at [facility], [address] [place] [address] CLIA Number [id number] Source STD Cervix PN SOFT Comment: CLIA Number [id number] Specimen Anatomical Collection Method Collection Time Receive d Time (Source) Location / / Volume Laterality 08/09/2016 2:22 PM 6 6:50 CDT PM CDT Roselyn Marroquin PA-C LAB_1 Performing Organization Address [facility] Phon e Number PN SOFT [address] [place] [address] Pap Test Order (08/09/2016 2:22 PM CDT) Analysis Performed At [facility] logist Time Signature Pap Smear Collected PN SOFT Monolayer tracking test Specimen Anatomical Collection Method Collection Time Receive d Time (Source) Location / / Volume Laterality 08/09/2016 2:22 PM 6 5:34 CDT AM CDT Roselyn Marroquin PA-C LAB_1 Performing Organization Address City/[facility] Phon e Number PN SOFT [address] [place] [address] Vaginitis Panel, DNA Probe (08/09/2016 2:22 PM CDT) [facility] Method Time Signature Trichomonas Not Detected Not Detected PN SOFT vaginalis Gardnerella Not Detected Not Detected PN SOFT vaginalis Alie species Not Detected Not Detected PN SOFT Specimen Anatomical Collection Method Collection Time Receive d Time (Source) Location / / Volume Laterality 08/09/2016 2:22 PM 6 8:41 CDT PM CDT Narrative PN SOFT - 08/10/2016 10:48 AM CDT Performed at [facility] [place], [address] [place] [address] CLIA number [id number] Roselyn Marroquin PA-C LAB_1 Performing Organization Address City/[facility] Phon e Number PN SOFT [address] [place] [address] UR NPT Hold for Culture (08/09/2016 1:39 PM CDT) [facility] Method Time Signature Urine Type URINE:clean PN [...] U Specific 1.020 1.005 - PN SOFT [place] 1.030 Urobilinogen Negative Negative PN SOFT Urine Eu/dL Turbidity Clear Clear PN SOFT Color Yellow PN SOFT Specimen Anatomical Collection Method Collection Time Receive d Time (Source) Location / / Volume Laterality 08/09/2016 1:39 PM 6 1:39 CDT PM CDT Narrative PN SOFT - 08/09/2016 1:45 PM CDT Performed at [facility] [place], [address] [place] [address] CLIA number [id number] Roselyn Marroquin PA-C LAB_1 Performing Organization Address City/State/ZIP Code Phon e Number PN SOFT [address] [place] [address] [phone] documented in this encounter Visit Diagnoses Diagnosis Annual physical exam - Primary Routine general medical examination at a health care facility Vaginal discharge Leukorrhea, not specified as infective Urinary frequency Encounter for screening for lipoid disor ders Screening for lipoid disorders Screening for diabetes mellitus Dysmenorrhea Metrorrhagia Encounter for smoking cessation counseli alley (HR) Counseling on substance use and abuse Urinary frequency Encounter for screening for lipoid disor ders Screening for lipoid disorders Screening for diabetes mellitus Dysmenorrhea Metrorrhagia documented in this encounter Care Teams Supervisor Costuming Relationship Specialty Start Date End Date Roselyn Marroquin PA-C PCP - General Physician Carpenter Refrigerator 08/09/16 [address] [place] [address] documented as of this encounter
--- OUTSIDE RECORDS SUMMARY | 2022-06-01 10:57 | XMS_ITS | Encounter Summary ---
:1985 Author Organization [facility] Address [address], [place] [address] Care Team Providers Name Role Phone Unassigned, Provider Primary Care Provider Unavailable Encounter Details Date Type Department Care Team Description 02/18/2009 Routine Igor Burroughs Obstetrics/[place] [address] [facility] [address] [place] [address] [place] [address] [phone] (Wo rk) Social History Tobacco Use Types Packs/Day Years Used Date Smoking Tobacco: Never Assessed Sex Assigned at Date Recorded Not on file documented as of this encounter Last Filed Vital Signs Vital Sign Reading Time Taken Comments Blood Pressure 104/62 02/18/2009 12:06 PM CDT Pulse - - Temperature - - Respiratory Rate - - Oxygen Saturation - - Inhaled Oxygen Concentration - - Weight 64.9 kg (142 lb 15.9 oz) 02/18/2009 12:06 PM C: 64.9kg CDT Height 165.1 cm (5' 5) 02/18/2009 12:06 PM C: 165.1cm CDT Body Mass Index 23.79 02/18/2009 12:06 PM CDT documented in this encounter Plan of Treatment Not on filedocumented as of this encounter Visit Diagnoses Not on filedocumented in this encounter Care Teams Pan Devulcanizer Helper Relationship Specialty Start Date End Date Unassigned, Provider PCP - General 12/01/00 02/17/16 [address] [place] [address] documented as of this encounter
--- OUTSIDE RECORDS SUMMARY | 2022-06-01 10:57 | XMS_ITS | Encounter Summary ---
:1985 Author Organization [facility] Address [address] [address] Care Team Providers Name Role Phone Unassigned, Provider Primary Care Provider Unavailable Encounter Details Date Type Department Care Team Description 12/10/2008 Routine [place] Katty Armstrong RN Obstetrics/Gynecolog y [address] [place], [place] [address] Social History Tobacco Use Types Packs/Day Years Used Date Smoking Tobacco: Never Assessed Sex Assigned at Date Recorded Not on file documented as of this encounter Last Filed Vital Signs Vital Sign Reading Time Taken Comments Blood Pressure 108/48 12/10/2008 3:24 PM GRAIN HANDLER Pulse 72 12/10/2008 3:24 PM GRAIN HANDLER Temperature - - Respiratory Rate 18 12/10/2008 3:24 PM GRAIN HANDLER Oxygen Saturation - - Inhaled Oxygen Concentration - - Weight 61.5 kg (135 lb 9.3 oz) 12/10/2008 3:24 PM GRAIN HANDLER C : 61.5kg Height - - Body Mass Index 22.56 11/26/2008 2:28 PM GRAIN HANDLER documented in this encounter Plan of Treatment Not on filedocumented as of this encounter Visit Diagnoses Not on filedocumented in this encounter Care Teams Refrigeration Repair Supervisor Relationship Specialty Start Date End Date Unassigned, Provider PCP - General 12/01/00 02/17/16 [address] [place] [address] documented as of this encounter
--- OUTSIDE RECORDS SUMMARY | 2022-06-01 10:57 | XMS_ITS | Encounter Summary ---
:1985 Author Organization [facility] Address [address] [place] [address] Care Team Providers Name Role Phone Unassigned, Provider Primary Care Provider Unavailable Encounter Details Date Type Department Care Team Description 01/07/2009 PN Conversion Only [place] [address] [place] [address] Social History Tobacco Use Types Packs/Day Years Used Date Smoking Tobacco: Never Assessed Sex Assigned at Date Recorded Not on file documented as of this encounter Plan of Treatment Not on filedocumented as of this encounter Procedures Procedure Name Priority Date/Time Associated Comments Diagnosis HEMOGLOBIN OB Routine 01/07/2009 2:00 PM Results for this CDT procedure are i n the results section. GLUCOSE - 1 HR. P.C. Routine 01/07/2009 2:00 PM R esults for this PREG CDT procedure are i n the results section. documented in this encounter Results Hemoglobin Ob (01/07/2009 2:00 PM CDT) athologist Signature OB Hemoglobin 13.6 gm/dL HP CONVERSION Comment: First trimester (week 12) 11.0 - 13.4 gm /dL Second trimester(week 20) 10.5 - 12.7 gm /dL Third trimester (week 32) 11.0 - 13.2 gm /dL From MMWR 1989;38(22): 400-4 Specimen (Source) Anatomical Collection Method Collection Time Re ceived Time Location / / Volume Laterality 01/07/2009 2:00 PM CDT Katty Armstrong RN LAB_1 Performing Organization Address City/State/ZIP Code Phon e Number HP CONVERSION Glucose - 1 Hr. P.C. Preg (01/07/2009 2:00 PM CDT) P athologist Signature Glucose, GTT - 101 40 - 139 HP CONVERSION 1 Hour mg/dL Specimen (Source) Anatomical Collection Method Collection Time Re ceived Time Location / / Volume Laterality 01/07/2009 2:00 PM CDT Katty Armstrong RN LAB_1 Performing Organization Address City/State/ZIP Code Phon e Number HP CONVERSION documented in this encounter Visit Diagnoses Not on filedocumented in this encounter Care Teams Skein Yarn Drier Relationship Specialty Start Date End Date Unassigned, Provider PCP - General 12/01/00 02/17/[address] [place] [address] documented as of this encounter
--- OUTSIDE RECORDS SUMMARY | 2022-06-01 10:57 | XMS_ITS | Encounter Summary ---
:1985 Author Organization [facility] Address [address] [address] Care Team Providers Name Role Phone Unassigned, Provider Primary Care Provider Unavailable Reason for Visit Reason Comments DANNY CHAMPAGNE Encounter Details Date Type Department Care Team Description 01/11/2012 [facility]al (Primary Medicine Dx) [address] [place] [phone] Social History Tobacco Use Types Packs/Day Years Used Date Smoking Tobacco: Never Assessed Sex Assigned at Date Recorded Not on file documented as of this encounter Last Filed Vital Signs Vital Sign Reading Time Taken Comments Blood Pressure 125/72 01/11/2012 2:05 PM CDT Pulse 91 01/11/2012 2:05 PM CDT Temperature - - Respiratory Rate - - Oxygen Saturation - - Inhaled Oxygen Concentration - - Weight 55.8 kg (123 lb) 01/11/2012 2:05 PM CDT Height - - Body Mass Index 20.47 05/04/2009 11:26 AM CDT documented in this encounter Progress Notes Arielle Carvajal - 01/11/2012 2:42 PM CDT Subjective: History was provided by the patient. 26 y.o. female needs retreatment of wart(s). Objective: Skin: 2 wart(s) noted on her right dorsum of foot. 1 on her big toe 5 mm and a cluster on the medial forefoot ranging 2mm -5 mm. 1 wart on left dorsum of foot, 3mm. Assessment: Warts (Verruca Vulgaris) Plan: 1. Wart(s) was paired down with 15 blade. Liquid nitrogen was applied to 3 wart(s) for three 10 second freeze/thaw cycles. Patient tolerated the procedure well, all questions answered. We also discussed doing OTC wart treatment in between to help with eradication as well as paring down callus with file. The patient will return at 4 week intervals for retreatments as needed. Patient in agreement with the plan. documented in this encounter Plan of Treatment Not on filedocumented as of this encounter Visit Diagnoses Diagnosis Plantar wart - Primary documented in this encounter Care Teams Portuguese Tutor Relationship Specialty Start Date End Date Unassigned, Provider PCP - General 12/01/00 02/17/[address] [place] [address] documented as of this encounter
--- OUTSIDE RECORDS SUMMARY | 2022-06-01 10:57 | XMS_ITS | Encounter Summary ---
:1985 Author Organization [facility] Address [address] [address] Care Team Providers Name Role Phone Unassigned, Provider Primary Care Provider Unavailable Reason for Visit Reason Comments VAGINITIS Urinary Frequency DIZZINESS Encounter Details Date Type Department Care Team Description 01/04/2015 Office Visit [facility] Angela Daniels Urinar y frequency (Primary Dx); Medicine DO Tobacco abuse [address] [address] [place] [address] [phone] Social History Tobacco Use Types Packs/Day Years Used Date Smoking Tobacco: Never Assessed Sex Assigned at Date Recorded Not on file documented as of this encounter Last Filed Vital Signs Vital Sign Reading Time Taken Comments Blood Pressure 105/60 01/04/2015 3:47 PM CDT Pulse 84 01/04/2015 3:47 PM CDT Temperature 36.3 ??C (97.3 ??F) 01/04/2015 3:47 PM CDT Respiratory Rate - - Oxygen Saturation 99% 01/04/2015 3:47 PM CDT Inhaled Oxygen Concentration - - Weight 51 kg (112 lb 6 oz) 01/04/2015 3:47 PM CDT Height 166.4 cm (5' 5.5) 01/04/2015 3:47 PM CDT Body Mass Index 18.42 01/04/2015 3:47 PM CDT documented in this encounter Progress Notes Angela Daniels, - 01/06/2015 10:46 AM CDT SUBJECTIVE: Chief Complaint Patient presents with ??? Vaginitis x 1 mo ??? Urinary Frequency x 1 week ??? Dizziness x 1 week History of present illness: 29 y.o. female presents with multiple issues. Onset 1 month ago, pt has had white vaginal discharge with malodorous yeast- like discharge, itching. Pt currently finishing her menstral cycle and using tampons. Currently asymptomatic. LMP 12/30/14. She did have some spotting 2 weeks ago, which does happen occasionally. Pt also has 1.5-2 week history of weird urine color, more concentrated than usual. No urgency or worsening frequency. Increased water intake lately has caused urinary frequency. Pt has history of kidney infections (05/2014, 02/2014, 02/2013). No history of abnormalities. Associated symptoms: left sideabdominal and back fluttering of sharp pains intermittently. Random occurrences. No known trigger.Sporatic pains rated 5/10 and resolve quickly, spontaneously. Pt denies fevers, chills. No medication therapy. She's also had a few episodes of lightheadedness, no syncope, brief--doesn't occur with head movements or position changes. Overall, she feels fine most of the time, just wanting to get checked before kidney infection starts, like in the past. No history of kidney stones. No chance she is . Normal bowel function. No URI symptoms. Pt smokes. Tried to use OTC nicotine patches but get really weird dreams while using them. Patient's medications, allergies, past medical, surgical, social and family histories were reviewed and updated as appropriate. ROS: otherwise negative with the exception of positives in HPI. OBJECTIVE: Filed Vitals: 01/04/15 1547 BP: 105/60 Pulse: 84 Temp: 97.3 ??F (36.3 ??C) TempSrc: Oral Height: 5' 5.5 (1.664 m) Weight: 112 lb 6 oz (50.973 kg) SpO2: 99% General: Patient alert, in NAD. Head: Normocephalic. Eyes: PERRLA, full EOM. External exams normal. Ears: Normal pinnae, canals, andTM's. Nose: Patent, without deformity. CV: Regular rate without murmurs, rubs or gallops. Resp: Clear to auscultation without crackles, wheezes or distress. Abdomen: bowel sounds present, soft, non-tender, without hepatosplenomegaly, masses, or hernias. No CVA tenderness. No guarding or rebound TTP. Thin appearing. Skin: No lesions. Psychiatric: Alert & oriented with normal affect and insight, does not appear depressed or anxious. Diagnosis (ICD9) and Associated Orders ICD-9-CM 1. Urinary frequency 788.41 Urine Dipstick NPT Julia, Adiel and Jin ONLY 2. Tobacco abuse (ACG) 305.1 Chronic Plan: Urinalysis negative for all components. Consider kidney stones as possible etiology for symptoms. Discussed in detail symptoms and need for clinic visit. Rec checking wet prep in a few days if symptoms return, not rec checking with tampon in place at this time and currently asymptomatic for vaginitis. Monitor symptoms. RTC if worsening or new symptoms. Good PO intake rec. Rec and encouraged tobacco cessation. No sign of infection at this time. RTC PRN. Pt agreed with plan. Pt discharged in stable condition. This note was produced using voice recognition software and may contain typographic or phonetic errors. documented in this encounter Plan of Treatment Not on filedocumented as of this encounter Visit Diagnoses Diagnosis Urinary frequency - Primary Tobacco abuse (HRC) Tobacco use disorder documented in this encounter Care Teams Rn Emergency Room Relationship Specialty Start Date End Date Unassigned, Provider PCP - General 12/01/00 02/17/[address] [place] [address] documented as of this encounter
--- OUTSIDE RECORDS SUMMARY | 2022-06-01 10:57 | XMS_ITS | Encounter Summary ---
:1985 Author Organization [facility] Address [address], [place] [address] Care Team Providers Name Role Phone Unassigned, Provider Primary Care Provider Unavailable Reason for Visit Reason Comments Back Pain WART, PLANTAR Encounter Details Date Type Department Care Team Description 07/02/2012 Office Visit [facility] Arielle Carvajal UTI (u rinary tract infection); Medicine Plantar wart; [address] Need for diphtheria-tetanus- pertussis (Tdap) vaccine; [place], [place] Need for hepat itis vaccination; [phone] Need for influenza vaccinati on; [phone] Dysuria Social History Tobacco Use Types Packs/Day Years Used Date Smoking Tobacco: Never Assessed Sex Assigned at Date Recorded Not on file documented as of this encounter Last Filed Vital Signs Vital Sign Reading Time Taken Comments Blood Pressure 117/82 07/02/2012 11:57 AM CDT Pulse 94 07/02/2012 11:57 AM CDT Temperature 36.7 ??C (98.1 ??F) 07/02/2012 11:57 AM CDT Respiratory Rate 18 07/02/2012 11:57 AM CDT Oxygen Saturation - - Inhaled Oxygen Concentration - - Weight 55.4 kg (122 lb 1.6 oz) 07/02/2012 11:57 AM CDT Height 167.6 cm (5' 6) 07/02/2012 11:57 AM CDT Body Mass Index 19.71 07/02/2012 11:57 AM CDT documented in this encounter Progress Notes Arielle Carvajal - 07/02/2012 2:12 PM CDT Subjective: Chief complaint: Chief Complaint Patient presents with ??? Back Pain low back pain, Hx of stage 1 kidney failure last year. oder to urine ??? Plantar Warts wart removal Betty Tai is an 26 y.o. female who presents to the clinic for evaluation of dysuria and plantar wart treatment. She is here for retreatment of plantar warts. Previous treatment performed 6 months ago. She reportsthey are worse now. She has tried OTC products without improvement. She also has had dysuria, odor and low back discomfort. She reports last year having a kidney infection which put her into stage 1 renal failure, diagnosed and treated through an outside clinic, she was not told to follow-up, denies history of kidney disease or problem.. She has not had problems since. She reports the low back pain is mild and intermittent, denies radiation. LMP last week normal, denies sexual activity. Denies history of ovarian cyst. Denies fever, recent infection, headache, dizziness, chest pain, SOB, abdominal pain, urine frequency or urgency, vaginal irritation, discharge or pain. Other than above, complete review of systems are negative. PMH: unremarkable other than patient states resolved stage 1 kidney failure Medications reviewed in EMR Adverse drug reactions: Review of patient's allergies indicates no known allergies. Immunizations: Immunization History Administered Date(s) Administered ??? DTP 1985, 1984, 03/03/1985, 10/29/1989, 03/12/1990 ??? Hib (ActHIB) 08/21/1986 ??? MMR 03/02/1986 ??? Oral Polio Vaccine 1985, 1984, 03/03/1985, 10/29/1989, 03/12/1990 Vital signs: BP 117/82 Pulse 94 Temp(Src) 98.1 ??F (36.7 ??C) (Oral) Resp 18 Ht 5' 6 (1.676m) Wt 122 lb 1.6 oz (55.384 kg) BMI 19.71 kg/m2 LMP 06/26/2012 Objective: Vital signs reviewed General- Patient in no acute distress, well-groomed, pleasant, appears healthy. Lungs- clear to ausculation bilaterally. Cardiovascular- regular rate and rhythm. Normal S1 and S2. No S3, S4 or murmurs. Abdomen- positive bowel sounds, nontender, nondistended, soft, no organomegaly. No CVA tenderness Extremities- no cyanosis, clubbing, or edema. Skin- 1 plantar warts on left foot ranging 1.3cm, left 1st toe 0.5cm, 1 plantar wart on right foot 0.5cm. skin overall warm and dry. no rashes noted. Neurological- alert and oriented. Lab/imaging: Recent Results (from the past 24 hour(s)) LAB URINALYSIS ROUTINE HOLD CULTURE Collection Time 07/02/12 12:08 PM Component Value Range ??? Urine Type Urine:clean cat ??? Turbidity Slightly Cloudy (*) Clear ??? U Bili Negative Negative ??? Blood Urine Small (*) Negative ??? Glucose, Qualitative U Negative Neg-30 (mg/dL) ??? Ketones Negative Negative ??? Leukocyte Esterase Urine Negative Negative ??? Nitrite Urine Negative Negative ??? pH Urine 6.5 5.0 - 8.0 ??? Protein Urine Negative Neg - Trace (mg/dL) ??? U Specific [place] 1.020 1.005-1.030 ??? Urobilinogen Urine Negative Negative (Eu/dL) LAB URINE MICROSCOPIC Collection Time 07/02/12 12:08 PM Component Value Range ??? Urine WBC 0-2 0-4 (/HPF) ??? Urine RBC 0-2 0-2 (/HPF) ??? Bacteria Urine Moderate (*) (/HPF) ??? Epithelial Cells Few (/HPF) Assessment/ Plan: #1 UTI #2 Plantar wart Discussed urine results with the patient, no WBC, bacteria noted. Patient declined pelvic exam today. Will treat until culture results. Rx Bactrim 1 DS tablet BID x 3 days . Side effect profile reviewed. Recommended follow-up worsening back pain, fever, tea colored urine, or other abnormal symptoms. En couraged lots of fluids, rest. Patient agrees. 3 Warts were paired down with 15 blade. Liquid nitrogen was applied to 3 wart(s) for three 10 secondfreeze/thaw cycles. Streil band-aid placed on warts. Patient tolerated the procedure well, all questions answered. The patient will return at 2-4 week intervals for retreatments as needed. Patient in agreement with the plan. RTC p.r.n. if not gradually improving, sooner p.r.n.. The patient was discharged in stable condition. All questions answered. Patient in agreement with the plan. documented in this encounter Plan of Treatment Not on filedocumented as of this encounter Visit Diagnoses Diagnosis UTI (urinary tract infection) Urinary tract infection, site not specif ied Plantar wart Need for dvslgowadn-lqhpjyk-gbbkrzjtv (T dap) vaccine Need for prophylactic vaccination with c ombined kidxqdupfj-coktvnn-hkyyfunvu (DTP) vaccine Need for hepatitis vaccination Need for prophylactic vaccination and in oculation against viral hepatitis Need for influenza vaccination Need for prophylactic vaccination and in oculation against influenza Dysuria documented in this encounter Care Teams Kardex Clerk Relationship Specialty Start Date End Date Unassigned, Provider PCP - General 12/01/00 02/17/[address] [place] [address] documented as of this encounter
--- OUTSIDE RECORDS SUMMARY | 2022-06-01 10:57 | XMS_ITS | Encounter Summary ---
:1985 Author Organization [facility] Address [address] [place] [address] Care Team Providers Name Role Phone Unassigned, Provider Primary Care Provider Unavailable Reason for Visit Reason Comments Other Encounter Details Date Type Department Care Team Description 03/29/2009 Telephone Igor Burroughs, Oth er Obstetrics/Gynecolog y [address] [place] [address] [place] [address] [phone] (Wo rk) Social History Tobacco Use Types Packs/Day Years Used Date Smoking Tobacco: Never Assessed Sex Assigned at Date Recorded Not on file documented as of this encounter Progress Notes Center, Message - 03/29/2009 3:56 PM CDT Phone Note filed by [employer] at 02/10/11330 Author: [employer] Service: (none) Author Type: (none) Filed: 02/10/11330 Note Time: 03/29/091555 Status: Signed Grounds Maintenance Supervisor: [employer] (Resource) Front Line Sx Call Caller Name/Relationship:self Primary Wax Bleacher:sabal Symptom or request?pt delivered on 2jun, was in [place] last night because was having pain, advsd pt to be seen by obg in 1-2 days Is appointment scheduled & when? Nurses Educator:urban Schneider call back number:[phone] Is it OK to leave a confidential message on this voicemail? *[id number] Created on 29Mar2009 3:56pm by RIYA SANTOS On 29Mar2009 4:17pm CHOLO YOON wrote: Please call pt. at [phone], ok to leave msg. Delivered 6 normal vaginal delivery. Low back pain started 03/25. went to ED last night, pain ranging from 4-8. episiotomy pain also. Taking dilaudid 2mg, flexerol and stool softner now. On 29Mar2009 4:27pm IGOR STEVENSON wrote: Spoke with pt. Acknowledged by IGOR STEVENSON on 4:27pm ERY INTERN documented in this encounter Plan of Treatment Not on filedocumented as of this encounter Visit Diagnoses Not on filedocumented in this encounter Care Teams Shirt Presser Relationship Specialty Start Date End Date Unassigned, Provider PCP - General 12/01/00 02/17/[address] [place] [address] documented as of this encounter
--- OUTSIDE RECORDS SUMMARY | 2022-06-01 10:57 | XMS_ITS | Encounter Summary ---
:1985 Author Organization [facility] Address [address] [place] [address] Care Team Providers Name Role Phone Unassigned, Provider Primary Care Provider Unavailable Reason for Visit Reason Comments Back Pain Encounter Details Date Type Department Care Team Description 09/07/2015 Office Visit [facility] Juaquin Corona Bilater al low back Medicine MD pain, with sciatica [address] presence unspecified [place], [place] (Primary Dx) [id number] [phone] Social History Tobacco Use Types Packs/Day Years Used Date Smoking Tobacco: Never Assessed Sex Assigned at Date Recorded Not on file documented as of this encounter Last Filed Vital Signs Vital Sign Reading Time Taken Comments Blood Pressure 108/68 09/07/2015 10:23 AM JOURNEYMAN PIPE WELDER Pulse 80 09/07/2015 10:23 AM JOURNEYMAN PIPE WELDER Temperature - - Respiratory Rate - - Oxygen Saturation - - Inhaled Oxygen Concentration - - Weight 52.4 kg (115 lb 8 oz) 09/07/2015 10:23 AM JOURNEYMAN PIPE WELDER Height 167.6 cm (5' 6) 09/07/2015 10:23 AM JOURNEYMAN PIPE WELDER Body Mass Index 18.64 09/07/2015 10:23 AM JOURNEYMAN PIPE WELDER documented in this encounter Progress Notes Juaquin Corona MD - 09/07/2015 10:48 AM CST Subjective Betty Tai is a 30 y.o. female who presents with back pain for the past 1 month. Getting worse. Hx of problems in the past, but not to this extent. Pain radiates into the right leg. No weakness. Pain located in lumbar spine. No acute injury. Not sleeping well. Outpatient Prescriptions Prior to Visit Medication Sig ??? acetaminophen (TYLENOL) 500 mg tablet Take 1-2 tablets by mouth every 4 hours as needed. LW AddlInstr:Maximum 8 tablets/day ??? ibuprofen (MOTRIN) 800 mg tablet Take 1 tablet by mouth NEEDED PRN. LW Addl Instr:Take with food. ??? op medications reviewed ??? selenium sulfide 2.5 % suspension Apply topically twice a week. No facility-administered medications prior to visit. No Known Allergies Past Medical History Diagnosis Date ??? Tobacco abuse (ACG) 01/04/2015 Past Surgical History Procedure Laterality Date ??? [place] tooth extraction ??? Pleural scarification chest tube History Substance Use Topics ??? Smoking status: Current Every Day Smoker -- 0.50 packs/day Types: Cigarettes ??? Smokeless tobacco: Not on file ??? Alcohol Use: 0.6 oz/week 1 Cans of beer per week Comment: 1 monthly No family history on file. Review of Systems Pertinent items are noted in HPI. Objective BP 108/68 mmHg Pulse 80 Ht 5' 6 (1.676 m) Wt 115 lb 8 oz (52.39 kg) BMI 18.65 kg/m2 MS: TTP along lower lumbar spine, limited ROM secondary to pain, Neg slr, tight hamstrings bilaterally. NV intact LE. Assessment/Plan Diagnosis and Associated Orders ICD-10-CM ICD-9-CM 1. Bilateral low back pain, with sciatica presence unspecified M54.5 724.2 PHYSICAL THERAPY CONSULT ADULT/PEDS (AMB) Medrol, tramadol, and PT. Follow up if not improving. Stay active, call if problems arise. Discussedflu shot, she will wait. Due for pap. Juaquin Corona MD 10:48 AM 09/07/2015 NEYMAN PIPE WELDER documented in this encounter Plan of Treatment Not on filedocumented as of this encounter Visit Diagnoses Diagnosis Bilateral low back pain, with sciatica p resence unspecified (HRC) - Primary documented in this encounter Care Teams Fruit Receiver Relationship Specialty Start Date End Date Unassigned, Provider PCP - General 12/01/00 02/17/[address] [place] [address] documented as of this encounter
--- OUTSIDE RECORDS SUMMARY | 2022-06-01 10:57 | XMS_ITS | Encounter Summary ---
:1985 Author Organization [email or web address] Address [address] [address] Care Team Providers Name Role Phone Unassigned, Provider Primary Care Provider Unavailable Reason for Visit Reason Comments LAB RESULTS Encounter Details Date Type Department Care Team Description 07/03/2012 Telephone [facility] Arielle Spence LAB RESULTS [address] [place] [address] Social History Tobacco Use Types Packs/Day Years Used Date Smoking Tobacco: Never Assessed Sex Assigned at Date Recorded Not on file documented as of this encounter Nursing Notes Angie Crockett - 07/03/2012 5:02 PM CDT Spoke with pt. Instructed, per Arielle Carvajal PA-C, urine bacteria resistant to bactrim. Will need to discontinue antibiotic and start Nitrofurantoin 100mg PO BID x 5 days, increase fluids, follow-up fever, back pain. Pt verbalized understanding. Will discontinue the Bactrim and filler picker the script tonight for the Nitrofurantoin. Arielle Carvajal - 07/03/2012 4:44 PM CDT Please call patient, urine bacteria resistant to bactrim. Will need to discontinue antibiotic and start Nitrofurantoin 100mg PO BID x 5 days, increase fluids, follow-up fever, back pain. documented in this encounter Plan of Treatment Not on filedocumented as of this encounter Visit Diagnoses Not on filedocumented in this encounter Care Teams Reverberatory Furnace Operator Relationship Specialty Start Date End Date Unassigned, Provider PCP - General 12/01/00 02/17/16 [address] [place] [address] documented as of this encounter
--- OUTSIDE RECORDS SUMMARY | 2022-06-01 10:58 | XMS_ITS | Encounter Summary ---
:1985 Author Organization [facility] Address [address] [place] [address] Care Team Providers Name Role Phone Unassigned, Provider Primary Care Provider Unavailable Encounter Details Date Type Department Care Team Description 09/30/2008 PN Conversion Only COMPUTER REPAIRER [address] [place] [address] Social History Tobacco Use Types Packs/Day Years Used Date Smoking Tobacco: Never Assessed Sex Assigned at Date Recorded Not on file documented as of this encounter Plan of Treatment Not on filedocumented as of this encounter Visit Diagnoses Not on filedocumented in this encounter Care Teams Plate Maker Zinc Relationship Specialty Start Date End Date Unassigned, Provider PCP - General 12/01/00 02/17/[address] [place] [id number] documented as of this encounter
--- OUTSIDE RECORDS SUMMARY | 2022-06-01 10:58 | XMS_ITS | Encounter Summary ---
:1985 Author Organization [facility] Address [address], [place] [address] Care Team Providers Name Role Phone Unassigned, Provider Primary Care Provider Unavailable Encounter Details Date Type Department Care Team Description 10/06/2008 PN Conversion Only [facility] CONVERSION Katty Armstrong , RN Social History Tobacco Use Types Packs/Day Years Used Date Smoking Tobacco: Never Assessed Sex Assigned at Date Recorded Not on file documented as of this encounter Plan of Treatment Not on filedocumented as of this encounter Visit Diagnoses Not on filedocumented in this encounter Care Teams Creative Engagement Director Relationship Specialty Start Date End Date Unassigned, Provider PCP - General 12/01/00 02/17/[address] [place] [address] documented as of this encounter
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
--- OUTSIDE RECORDS SUMMARY | 2022-06-01 10:58 | XMS_ITS | Encounter Summary ---
:1985 Author Organization [facility] Address [address] [place] [address] Care Team Providers Name Role Phone Unassigned, Provider Primary Care Provider Unavailable Encounter Details Date Type Department Care Team Description 10/06/2008 PN Conversion Only DENOMINATIONAL CONVERSION Katty Armstrong , RN Social History Tobacco Use Types Packs/Day Years Used Date Smoking Tobacco: Never Assessed Sex Assigned at Date Recorded Not on file documented as of this encounter Plan of Treatment Not on filedocumented as of this encounter Procedures Procedure Name Priority Date/Time Associated Comments Diagnosis SEXUALLY TRANSMITTED Routine 10/06/2008 4:34 PM R esults for this DISEASE PROBE TEACHING ASSOCIATE procedure are in the results section. BLOOD GROUP & RH Routine 10/06/2008 3:22 PM Resul ts for this (BLOOD TYPE) TEACHING ASSOCIATE procedure are i n the results section. ANTIBODY SCREEN Routine 10/06/2008 3:22 PM Result s for this TEACHING ASSOCIATE procedure are i n the results section. RUBELLA IGG Routine 10/06/2008 3:22 PM Results f or this TEACHING ASSOCIATE procedure are i n the results section. HIV ANTIBODY Routine 10/06/2008 3:22 PM Results f or this TEACHING ASSOCIATE procedure are i n the results section. RPR BLOOD Routine 10/06/2008 3:22 PM Results f or this TEACHING ASSOCIATE procedure are i n the results section. HEP B SURFACE Routine 10/06/2008 3:22 PM Results for this ANTIGEN, NO REFLEX TEACHING ASSOCIATE procedure are in the results section. COMPLETE BLOOD Routine 10/06/2008 3:22 PM Results for this COUNT-NO DIFF TEACHING ASSOCIATE procedure are in the results section. URINALYSIS Routine 10/06/2008 2:43 PM Results f or this ROUTINE(MICRO IF POS) TEACHING ASSOCIATE proced ure are in the results section. URINALYSIS Routine 10/06/2008 2:43 PM Results f or this MICROSCOPIC TEACHING ASSOCIATE procedure are i n the results section. URINE CULTURE Routine 10/06/2008 2:43 PM Results for this TEACHING ASSOCIATE procedure are i n the results section. ANATOMICAL PATH Routine 10/06/2008 10:46 Results for this LIQUID BASED AM TEACHING ASSOCIATE procedure are i n the results section. documented in this encounter Results Sexually Transmitted Disease Probe (10/06/2008 4:34 PM TEACHING ASSOCIATE) Patholo gist Method Time Signature Sexually SEE TEXT HP CONVERSION Transmitted Disease Probe Comment: Patient: TELLO TERRELL Sexually Trans Disease Probe ?Collected: ??[id number] ??[id number] Source: ENDOCERV ?Processed: ??[id number] ??[id number] ? V Final Report ------ ?[id number] ??[id number] No Chlamydia trachomatis detected by amp lified DNA assay No Neisseria gonorrhoeae detected by amp lified DNA assay [facility] Amplified DNA assay is royce red by the FDA for non-medicolegal diagnostic testing in the adult population. Specimen (Source) Anatomical Collection Method Collection Time Re ceived Time Location / / Volume Laterality 10/06/2008 4:34 PM TEACHING ASSOCIATE Katty Armstrong RN LAB_1 Performing Organization Address City/State/ZIP Code Phon e Number HP CONVERSION Antibody Screen (10/06/2008 3:22 PM TEACHING ASSOCIATE) athologist Signature N/O BB NEG No normal HP CONVERSION ANTIBODY range SCREEN Specimen (Source) Anatomical Collection Method Collection Time Re ceived Time Location / / Volume Laterality 10/06/2008 3:22 PM TEACHING ASSOCIATE Katty Armstrong RN PN BLOOD BANK ORDERS Performing Organization Address City/State/ZIP Code Phon e Number HP CONVERSION (ABNORMAL) Complete Blood Count-No Diff (10/06/2008 3:22 PM TEACHING ASSOCIATE) [facility] gist Method Time Signature White Blood Cell 9.0 3.8 - HP CONVERSION Count 11.0 K/cmm Red Blood Cell 4.28 3.70 - HP CONVERSION Count 5.20 m/cmm Hemoglobin 14.4 11.8 - HP CONVERSION 15.5 gm/dL Hematocrit 40.7 35.0 - HP CONVERSION 46.0 % Mean Corpuscular 95.1 80.0 - HP CONVERSION Volume 100.0 fl Mean Corpuscular 33.7 27.0 - HP CONVERSION Hemoglobin 34.0 pg Mean Corpuscular 35.4 32.0 - HP CONVERSION Hemoglobin Conc 36.5 [place] gm/dL RDW 10.9 (L) 11.0 - HP CONVERSION 15.0 % Platelet Count 179 140 - 450 HP CONVERSION k/cmm Specimen (Source) Anatomical Collection Method Collection Time Re ceived Time Location / / Volume Laterality 10/06/2008 3:22 PM TEACHING ASSOCIATE Katty Armstrong RN LAB_1 Performing Organization Address [facility]/ZIP Code Phon e Number HP CONVERSION Blood Group & Rh (Blood Type) (10/06/2008 3:22 PM TEACHING ASSOCIATE) athologist Signature BB BLOOD TYPE O POS No normal HP CONVERSION (BLOOD GROUP & range RH) Specimen (Source) Anatomical Collection Method Collection Time Re ceived Time Location / / Volume Laterality 10/06/2008 3:22 PM TEACHING ASSOCIATE Katty Armstrong RN PN BLOOD BANK ORDERS Performing Organization Address [facility] Code Phon e Number HP CONVERSION Rubella Igg (10/06/2008 3:22 PM TEACHING ASSOCIATE) athologist Signature Rubella IgG Immune Immune HP CONVERSION Specimen (Source) Anatomical Collection Method Collection Time Re ceived Time Location / / Volume Laterality 10/06/2008 3:22 PM TEACHING ASSOCIATE Katty Armstrong RN LAB_1 Performing Organization Address [facility]/ZIP Code Phon e Number HP CONVERSION RPR Blood (10/06/2008 3:22 PM TEACHING ASSOCIATE) P athologist Signature RPR Non Reac Non Reac HP CONVERSION Specimen (Source) Anatomical Collection Method Collection Time Re ceived Time Location / / Volume Laterality 10/06/2008 3:22 PM TEACHING ASSOCIATE Katty Armstrong RN LAB_1 Performing Organization Address [facility] Code Phon e Number HP CONVERSION HIV Antibody (10/06/2008 3:22 PM TEACHING ASSOCIATE) P athologist Signature HIV 1/HIV 2 Non Reac Non Reac HP CONVERSION Specimen (Source) Anatomical Collection Method Collection Time Re ceived Time Location / / Volume Laterality 10/06/2008 3:22 PM TEACHING ASSOCIATE Katty Armstrong RN LAB_1 Performing Organization Address [facility] Code Phon e Number HP CONVERSION Hep B Surface Antigen, No Reflex (10/06/2008 3:22 PM TEACHING ASSOCIATE) Analysis Performed At Patho logist Time Signature Hep B Surf Ag Negative Negative HP CONVERSION Specimen (Source) Anatomical Collection Method Collection Time Re ceived Time Location / / Volume Laterality 10/06/2008 3:22 PM TEACHING ASSOCIATE Katty Armstrong RN LAB_1 Performing Organization Address [facility] Code Phon e Number HP CONVERSION (ABNORMAL) Urine Culture (10/06/2008 2:43 PM TEACHING ASSOCIATE) Patholo gist Method Time Signature Urine Culture SEE TEXT HP CONVERSION (A) Comment: Patient: TELLO TERRELL Culture, Urine ?Collected: ??[id number] ??[id number] Source: Clean Ca ?Processed: ??[id number] ??[id number] ? 1V Final Report ------ ?[id number] ??1508 50-100,000 CFU/mL Escherichia coli Susceptibility Testing E COL ??GIANLUCA INTERP: ?S ??AMPICILLIN , AMOX/CLAV ACID, CEFAZOLIN, LEVOFLOXACIN, ?CIPR OFLOXACIN, CEFTRIAXONE, CEFTAZIDIME, GENTAMICIN, ?CEFE PIME, NITROFURANTOIN, TRIMETH-SULFA Specimen (Source) Anatomical Collection Method Collection Time Re ceived Time Location / / Volume Laterality 10/06/2008 2:43 PM TEACHING ASSOCIATE Katty Armstrong RN LAB_1 Performing Organization Address City/State/ZIP Code Phon e Number HP CONVERSION (ABNORMAL) Urinalysis Routine(Micro If Pos) (10/06/2008 2:43 PM TEACHING ASSOCIATE) [facility] gist Method Time Signature Turbidity Hazy (A) No normal HP CONVERSION range pH Urine 7.5 4.5 - 7.5 HP CONVERSION Protein Urine Negative Neg-Trac HP CONVERSION Glucose, Negative Neg-Trac HP CONVERSION Qualitative U Ketones Negative Negative HP CONVERSION U BILI Negative Negative HP CONVERSION Blood Urine Negative Negative HP CONVERSION Nitrite Urine Negative Negative HP CONVERSION Leukocyte Negative Negative HP CONVERSION Esterase Urine Urobilinogen Negative 0.2 - 1.0 HP CONVERSION Urine U Specific 1.015 1.005 - 25 HP CONVERSION [place] Specimen (Source) Anatomical Collection Method Collection Time Re ceived Time Location / / Volume Laterality 10/06/2008 2:43 PM TEACHING ASSOCIATE Katty Armstrong RN LAB_1 Performing Organization Address City/[facility] Code Phon e Number HP CONVERSION (ABNORMAL) Urinalysis Microscopic (10/06/2008 2:43 PM TEACHING ASSOCIATE) [facility] Method Time Signature White Blood 0-2/HPF 0 - 3 HP CONVERSION Cells Urine Bacteria Urine Moderate (A) None HP CONVERSIO N Epithelial Few Few /HPF HP CONVERSION Cells Crystals Amorph None HP CONVERSION Specimen (Source) Anatomical Collection Method Collection Time Re ceived Time Location / / Volume Laterality 10/06/2008 2:43 PM TEACHING ASSOCIATE Katty Armstrong RN LAB_1 Performing Organization Address [facility] Code Phon e Number HP CONVERSION Pap Smear (10/06/2008 10:46 AM TEACHING ASSOCIATE) [facility] gist Method Time Signature PAP Smear SEE TEXT No normal HP CONVERSION Liquid Based range Comment: Patient: TELLO TERRELL ? CERVICAL CYTOLOGY REPORT Pathology # ??[id number] ?Date Obtained: [id number] ? Date Received: [id number] CYTOLOGIC IMPRESSION: Negative for intraepithelial lesion or m alignancy. Verified 10/09/08 by: ??KGM ?(electronic signature) ? LEANN TIONAL DATA LMP: CLINICAL HIST LIQUID BASED PAP CERVICAL SPECIMEN ADEQUACY: ?? Satisfactory. ENDOCERVICAL CELLS: ??Present. Specimen (Source) Anatomical Collection Method Collection Time Re ceived Time Location / / Volume Laterality 10/06/2008 10:46 AM TEACHING ASSOCIATE Katty Armstrong RN LAB_1 Performing Organization Address City/State/ZIP Code Phon e Number HP CONVERSION documented in this encounter Visit Diagnoses Not on filedocumented in this encounter Care Teams Pasta Maker Relationship Specialty Start Date End Date Unassigned, Provider PCP - General 12/01/00 02/17/[address] [place] [id number] documented as of this encounter
--- OUTSIDE RECORDS SUMMARY | 2022-06-01 10:58 | XMS_ITS | Encounter Summary ---
:1985 Author Organization [facility] Address [address] [address] Care Team Providers Name Role Phone Unassigned, Provider Primary Care Provider Unavailable Encounter Details Date Type Department Care Team Description 11/05/2008 Initial Igor Burroughs Obstetrics/[place] [address] [place] [address] [place] [address] [phone] (Wo rk) Social History Tobacco Use Types Packs/Day Years Used Date Smoking Tobacco: Never Assessed Sex Assigned at Date Recorded Not on file documented as of this encounter Last Filed Vital Signs Vital Sign Reading Time Taken Comments Blood Pressure 108/60 11/05/2008 1:16 PM SOLUTION COORDINATOR Pulse - - Temperature - - Respiratory Rate - - Oxygen Saturation - - Inhaled Oxygen Concentration - - Weight 58 kg (127 lb 15.6 oz) 11/05/2008 1:16 PM SOLUTION COORDINATOR C: 58.1kg Height 165.1 cm (5' 5) 11/05/2008 1:16 PM SOLUTION COORDINATOR C: 165.1 cm Body Mass Index 21.3 11/05/2008 1:16 PM SOLUTION COORDINATOR documented in this encounter Plan of Treatment Not on filedocumented as of this encounter Visit Diagnoses Not on filedocumented in this encounter Care Teams Experimental Display Builder Relationship Specialty Start Date End Date Unassigned, Provider PCP - General 12/01/00 02/17/[address] [place] [phone] documented as of this encounter
--- OUTSIDE RECORDS SUMMARY | 2022-06-01 10:58 | XMS_ITS | Encounter Summary ---
:1985 Author Organization [facility] Address [address] [place] [address] Care Team Providers Name Role Phone Unassigned, Provider Primary Care Provider Unavailable Encounter Details Date Type Department Care Team Description 11/19/2008 PN Conversion Only [facility] [id number] [address] Social History Tobacco Use Types Packs/Day Years Used Date Smoking Tobacco: Never Assessed Sex Assigned at Date Recorded Not on file documented as of this encounter Plan of Treatment Not on filedocumented as of this encounter Procedures Procedure Name Priority Date/Time Associated Diagnosis Comme nts US OB >/= 14 WEEKS Routine 11/19/2008 2:08 PM Res ults for this 0 DAYS, SINGLE PRISON OFFICER procedure are in FETUS the results section. documented in this encounter Results US OB >/= 14 Weeks 0 Days, Single Fetus (11/19/2008 2:08 PM PRISON OFFICER) Anatomical Region Laterality Modality Pelvis Other Specimen (Source) Anatomical Location Collection Method / Collectio n Time Received Time / Laterality Volume Impressions 11/19/2008 2:08 PM PRISON OFFICER : ? 1. ?? Single ?live intraut erine measuring 20 weeks 3 days by this ultrasound. ? 2. ?survey is unr emarkable. ??Small nonspecific echogenic intracardiac focus. [id number]/rr Dictating MD BOWERS, AVERY Ley MD Narrative 11/19/2008 2:08 PM PRISON OFFICER COMPARISON: ??None. INDICATION: ??Check size and dates. FINDINGS: ??There is a single live intra uterine . ?? heart rate present at 145 bpm. ?? m ovement seen. ??Fetus is transverse oblique lie with head t o maternal right. Placenta is posterofundal and free of th e internal os. ??Subjectively normal amniotic fluid volume. ??Cervical length measures 3.1 cm transabdominally. biometry as follows: BPD equals 4.7 cm, 20 weeks 2 days. HC equals 17.8 cm, 20 weeks 2 days. AC equals 16.7 cm, 21 weeks 5 days. FL equals 3.4 cm, 20 weeks 3 days. Estimated weight equals 394 g. HC/AC equals 1.07. Composite age by this ultrasound measure s 20 weeks 3 days generating an estimated date of confinement of 03/22. ??This correlates well with 03/30/2009 established by patient. survey to include head, face, spin e, 4-chamber heart, cord insertion, 3-vessel cord, bladder, stoma ch, kidneys, and extremities is unremarkable. ??There is a small echo genic intracardiac focus. Procedure Note Avery Bowers MD - 12/28/2016Formatti ng of this note might be different from the original. COMPARISON: None. INDICATION: Check size and dates. FINDINGS: There is a single live intraut erine . heart rate present at 145 bpm. mov ement seen. Fetus is transverse oblique lie with head t o maternal right. Placenta is posterofundal and free of th e internal os. Subjectively normal amniotic fluid volume. Cervical l ength measures 3.1 cm transabdominally. biometry as follows: BPD equals 4.7 cm, 20 weeks 2 days. HC equals 17.8 cm, 20 weeks 2 days. AC equals 16.7 cm, 21 weeks 5 days. FL equals 3.4 cm, 20 weeks 3 days. Estimated weight equals 394 g. HC/AC equals 1.07. Composite age by this ultrasound measure s 20 weeks 3 days generating an estimated date of confinement of 03/22. This correlates well with 03/30/2009 established by patient. survey to include head, face, spin e, 4-chamber heart, cord insertion, 3-vessel cord, bladder, stoma ch, kidneys, and extremities is unremarkable. There is a small echoge brett intracardiac focus. IMPRESSION : 1. Single live intrauterine m easuring 20 weeks 3 days by this ultrasound. 2. survey is unremarkable. Small nonspecific echogenic intracardiac focus. [id number] Dictating AVERY CLARK MD Igor Kaufman MD [facility] documented in this encounter Visit Diagnoses Not on filedocumented in this encounter Care Teams Client Operations Manager Relationship Specialty Start Date End Date Unassigned, Provider PCP - General 12/01/00 02/17/[address] [place] [phone] documented as of this encounter
--- OUTSIDE RECORDS SUMMARY | 2022-06-01 10:58 | XMS_ITS | Encounter Summary ---
:1985 Author Organization [facility] Address [address] [place] [address] Care Team Providers Name Role Phone Unassigned, Provider Primary Care Provider Unavailable Reason for Visit Reason Comments Other Encounter Details Date Type Department Care Team Description 10/09/2008 Telephone [facility], Message Other [address] [place] [address] Social History Tobacco Use Types Packs/Day Years Used Date Smoking Tobacco: Never Assessed Sex Assigned at Date Recorded Not on file documented as of this encounter Progress Notes [place], Message - 10/09/2008 5:01 PM CST Phone Note filed by Catawiki at 02/09/11 8732 Author: [employer] Service: (none) Author Type: (none) Filed: 02/09/11 1242 Note Time: 10/09/08 1701 Status: Signed Candy Bar Attendant: [facility] Pt notified U/C results 50,000-100,000 e.coli. Pt given rx for Macrobid 100mg 1 po BID x 7 days per Lo Puckett PLANT MAINTENANCE MECHANIC. Pt informed abx faxed to pharmacy. Pt verified allergies NKDA Created on 09Oct2008 5:01pm by KIRILL TERRELL DING CONSTRUCTION PROFESSOR documented in this encounter Plan of Treatment Not on filedocumented as of this encounter Visit Diagnoses Not on filedocumented in this encounter Care Teams Fraternity House Cook Relationship Specialty Start Date End Date Unassigned, Provider PCP - General 12/01/00 02/17/[address] [place] [id number] documented as of this encounter
--- OUTSIDE RECORDS SUMMARY | 2022-06-01 10:58 | XMS_ITS | Encounter Summary ---
:1985 Author Organization [facility] Address [address] [place] [address] Care Team Providers Name Role Phone Unassigned, Provider Primary Care Provider Unavailable Encounter Details Date Type Department Care Team Description 10/22/1989 PN Conversion Only SIDE [facility] [address] [place] [address] Social History Tobacco Use Types Packs/Day Years Used Date Smoking Tobacco: Never Assessed Sex Assigned at Date Recorded Not on file documented as of this encounter Plan of Treatment Not on filedocumented as of this encounter Procedures Procedure Name Priority Date/Time Associated Comments Diagnosis ANC RESULT Routine 10/20/1994 1:10 PM Results f or this CONVERSION DEFAULT BOAT ENGINE MECHANIC procedure are in ORDER the results section. documented in this encounter Results Anc Result Conversion Default Order (10/20/1994 1:10 PM BOAT ENGINE MECHANIC) Anatomical Region Laterality Modality Other Specimen (Source) Anatomical Location Collection Method / Collectio n Time Received Time / Laterality Volume Narrative 10/20/1994 1:10 PM BOAT ENGINE MECHANIC CLINICAL DATA: ?COUGH ONE MONTH FINDINGS: ?LINEAR DENSITIES OVER THE LOWER LE FT CARDIAC AREA APPEAR TO ?REPRESENT SUPERIMPOSED VASCULAR ST RUCTURES RATHER THAN ?INFILTRATE. ??NO ACUTE CONSOLIDATI ON OR SIGNIFICANT ?ABNORMALITY IS IDENTIFIED. TECH-ID : ? [id number] TRANS-ID: ? JMT Procedure Note Jose Alejandro Carrillo MD - 12/28/2016Formatt ing of this note might be different from the original. CLINICAL DATA: COUGH ONE MONTH FINDINGS: LINEAR DENSITIES OVER THE LOWER LEFT CA RDIAC AREA APPEAR TO REPRESENT SUPERIMPOSED VASCULAR STRUCTU RES RATHER THAN INFILTRATE. NO ACUTE CONSOLIDATION OR S IGNIFICANT ABNORMALITY IS IDENTIFIED. TECH-ID : [id number] TRANS-ID: JMT Sukhdeep Boone MD RAD GD documented in this encounter Visit Diagnoses Not on filedocumented in this encounter Care Teams Video Games Mechanic Relationship Specialty Start Date End Date Unassigned, Provider PCP - General 12/01/00 02/17/[address] [place] [address] documented as of this encounter
[2022-06-02 14:51] LABS: Rapid Plasma Reagin (RPR) Non Reactive (Non Reactive)
== END 2022-06-01 10:54 | disposition home or self-care (01) ==
LOC: NFLDREF 10:54
PROVIDERS: PCP Obstetrics & Gynecology; Visit Provider Advanced Practice Midwife
DX: Z34.93 Encounter for supervision of normal pregnancy, unspecified, third trimester (principal); Z3A.28 28 weeks gestation of pregnancy
CPT/HCPCS: 86592

== ENCOUNTER 2022-06-13 08:32 | Outpatient (CLI) | payer BC, SELFPAY ==
--- OUTSIDE RECORDS SUMMARY | 2022-06-13 08:34 | XMS_ITS | Encounter Summary ---
:1985 Author Organization [facility] Address [address] [place] [address] Care Team Providers Name Role Phone LopezRoselyn Shane PERAZA Primary Care Provider Reason for Visit Reason Comments Dental Hygiene cc none Encounter Details Date Type Department Care Team Description 01/18/2018 Office Visit [facility] Mariam Herrera, [facility] [address] [place] [address] Dental Hygiene (cc Dentistry Yardic, Exam none) [address] [place] [address] Social History Tobacco Use Types [...] this encounter Patient Instructions Patient InstructionsYareli Jacob, [facility] - 01/18/2018 4:10 PM CDT [...] Peralta DDS 01/18/2018, 4:36 PM Yareli Jacob, [facility] - 01/18/2018 4:10 PM CDT PROPHY NOTE PROPHY/ASSESSMENT:[id number]::PROPHY NOTE Collaborative Agreement: ?? Patient consents to [...] 4:57 PM Routine health VARNISH CDT maintenance [id number] Routine 01/18/2018 4:57 PM Routine health CDT maintenance PROPHYLAXIS-ADULT Routine 01/18/2018 4:57 PM Routine health RECALL CDT maintenance PERIODIC ORAL Routine 01/18/2018 4:57 PM Routine health EVALUATION CDT maintenance 4 MOD EXISTING Routine 01/05/2017 11:00 PM COMPOSITE FILLING CDT 24 MA EXISTING Routine 01/05/2017 11:00 PM COMPOSITE FILLING CDT 24 MA EXISTING Routine 01/05/2017 11:00 PM COMPOSITE FILLING CDT 31 MO EXISTING Routine 01/05/2017 11:00 PM COMPOSITE FILLING CDT 2 O EXISTING COMPOSITE Routine 01/05/2017 11:00 PM FILLING CDT 8 FI EXISTING COMPOSITE Routine 01/05/2017 11:00 PM FILLING CDT 24 MA EXISTING Routine 01/05/2017 11:00 PM COMPOSITE FILLING [...] trauma), without mention of complication Fractured dental denominational with loss o f material Fractured dental restorative material wi th loss of material Gingivitis, chronic, non-plaque induced Chronic gingivitis, non-plaque induced documented in this encounter Care Teams Microarray Analyst Relationship Specialty Start Date End Date Roselyn Marroquin PA-C PCP - General Physician Optical Goods Worker 08/09/16 [address] [place] [address] documented as of this encounter
--- OUTSIDE RECORDS SUMMARY | 2022-06-13 08:34 | XMS_ITS | Encounter Summary ---
:1985 Author Organization [facility] Address [address] [place] [address] Care Team Providers Name Role Phone Roselyn Marroquin PA-C Primary Care Provider Encounter Details Date Type Department Care Team Description 09/26/2019 Lab Visit [facility] Dysuria; [address] Hematuria, [place] [address] Social History Tobacco Use [...] 09/26/2019 3:48 PM Dysuria Results for this TOURIST AGENT Hematuria, procedure are i n microscopic the results section. AUTOMATED URINALYSIS Routine 09/26/2019 3:48 PM Dysuria R esults for this DIPSTICK POCT TOURIST AGENT procedure are in the results section. documented in this encounter Results (ABNORMAL) Urine Culture (09/26/2019 3:48 PM TOURIST AGENT) Component Value Ref Test Method Analysis Performed Patholog ist Range Time At Signature Urine Growth (A) 09/28/2019 [facility] Culture 10:34 AM [facility] TOURIST AGENT Urine 10,000 - 50,000 GIANLUCA 09/28/2019 [facility] Culture CFU/mL SENSITIVITY 10:34 AM [facility] Staphylococcus TOURIST AGENT saprophyticus Specimen Anatomical Collection Method Collection Time Receive d Time (Source) Location / / Volume Laterality Urine URINE SPECIMEN Non-blood 09/26/2019 3:48 PM 019 3:48 COLLECTION, CLEAN Collection / TOURIST AGENT PM TOURIST AGENT CATCH / Unknown Unknown [facility] - 09/28/2019 10:[address] Routine testing of urine isolates of Sta phylococcus saprophyticus is not advised, because infections respond to concentrat ions achieved in urine of antimicrobial agents commonly used to treat acute, unc omplicated UTIs (eg, nitrofurantoin, trimethoprim ?? sulfamethoxazole, or a f luoroquinolone). Percy Gutierrez PA-C LAB_1 Performing Organization Address City/State/ZIP Code Phon e Number [address] [address] (ABNORMAL) Urine Dipstick NPT (09/26/2019 3:48 PM TOURIST AGENT) [facility] gist Method Time Signature Glucose Urine Negative Negative 09/26/2019 [facility] Qual (mg/dL) 3:55 PM TOURIST AGENT Bilirubin Negative Negative 09/26/2019 [facility] Urine 3:55 PM TOURIST AGENT Ketones, Negative Negative 09/26/2019 [facility] Urine (mg/dL) 3:55 PM TOURIST AGENT Specific 1.015 1.005 - 09/26/2019 [facility] Palmer, 1.030 3:55 PM TOURIST AGENT Urine Blood, Urine Trace Neg/Trace 09/26/2019 [facility] 3:55 PM TOURIST AGENT PH Urine 7.0 5.0 - 8.0 09/26/2019 [facility] 3:55 PM TOURIST AGENT Protein, Trace Neg/Trace 09/26/2019 [facility] Urine Qual 3:55 PM TOURIST AGENT (mg/dL) Urobilinogen, 0.2 <2.0 09/26/2019 [facility] Urine (EU/dL) 3:55 PM TOURIST AGENT Nitrite Urine Negative Negative 09/26/2019 [facility] 3:55 PM TOURIST AGENT Leukocyte Large (A) Negative 09/26/2019 [facility] Est. 3:55 PM TOURIST AGENT Urine Color Yellow Straw-Yellow 09/26/2019 [facility] 3:55 PM TOURIST AGENT Urine Clarity Hazy (A) Clear 09/26/2019 [facility] 3:55 PM TOURIST AGENT Specimen Anatomical Collection Method Collection Time Receive d Time (Source) Location / / Volume Laterality Urine URINE SPECIMEN Non-blood 09/26/2019 3:48 PM 019 3:48 COLLECTION, CLEAN Collection / TOURIST AGENT PM TOURIST AGENT CATCH / Unknown Unknown Percy Gutierrez PA-C LAB_1 Performing Organization Address City/State/ZIP Code Phon e Number [facility] [address] [place] [phone] [facility] [address] [place] [address] [address] [phone] documented in this encounter Visit Diagnoses Diagnosis Dysuria Hematuria, microscopic Microscopic hematuria documented in this encounter Care Teams Business Unit Director Relationship Specialty Start Date End Date Roselyn Marroquin PA-C PCP - General Physician Academic Associate 08/09/16 [address] [place] [address] documented as of this encounter
--- OUTSIDE RECORDS SUMMARY | 2022-06-13 08:34 | XMS_ITS | Encounter Summary ---
:1985 Author Organization [facility] Address [address] [address] Care Team Providers Name Role Phone Roselyn Marroquin PA-C Primary Care Provider Encounter Details Date Type Department Care Team Description 12/06/2017 Lab Visit [facility] Well adult exam [address] [place] [address] Social History Tobacco Use [...] - 12/06/2017 1:00 PM CST Letter sent. T I FARMWORKER documented in this encounter Plan of Treatment [...] Volume Laterality 12/06/2017 12/06/2017 11:2 5 AM FRUIT I FARMWORKER Narrative PN SOFT - 12/06/2017 12:35 PM FRUIT I FARMWORKER Performed at [facility], [address] [address] CLIA number [id number] Juaquin Corona MD LAB_1 Performing Organization Address City/[facility] Phon e Number PN SOFT [address] [place] [address] [phone] Glucose (12/06/2017) P athologist Signature Lab Glucose 96 70 - 100 PN SOFT mg/dL Comment: The stated glucose range is for the fast ing state. Non-fasting glucose range is 70-180 mg/d L Specimen (Source) Anatomical Collection Method Collection Time Re ceived Time Location / / Volume Laterality 12/06/2017 12/06/2017 11:2 5 AM FRUIT I FARMWORKER Narrative PN SOFT - 12/06/2017 12:35 PM FRUIT I FARMWORKER Performed at [facility], [address] [place] [address] CLIA number [id number] Juaquin Corona MD LAB_1 Performing Organization Address City/[facility] Phon e Number PN SOFT [address] [place] [address] [phone] documented in this encounter Visit Diagnoses Diagnosis Well adult exam Routine general medical examination at a health care facility documented in this encounter Care Teams Regional Ehs Manager Relationship Specialty Start Date End Date Roselyn Marroquin PA-C PCP - General Physician Credit Risk Officer 08/09/16 [address] [place] [address] documented as of this encounter
--- OUTSIDE RECORDS SUMMARY | 2022-06-13 08:34 | XMS_ITS | Encounter Summary ---
:1985 Author Organization [facility] Address [address] [place] [address] Care Team Providers Name Role Phone LopezRoselyn Shane PERAZA Primary Care Provider Reason for Visit Reason Comments PAP,ABNORMAL ASC-H, HPV+ non 16-18 Encounter Details Date Type Department Care Team Description 12/19/2017 Telephone Cervical Cancer Christine Johnson MD PAP,ABNORMAL (ASC-H, Screening and [address] HPV+ non 16-18) Management [facility] 5th [address] [place] [address] [place] [address] [phone] Social History Tobacco Use Types Packs/Day Years [...] screening on 12/06/[address] Corona at [facility] Pap result(s): ASC-H, HPV+ (non 16/18), hx abnormal Colposcopy recommended per guidelines. Informed patient of results. Scheduled colposcopy. Patient given verbal preparation instructions forprocedure. Sent follow up CloudWork message. Future Appointments Date Time Provider Department Center 12/25/2017 1:00 PM Igor Kaufman MD [facility] PN POE FR Routing to provider as an FYI. E REFINISHER documented in this encounter Plan of Treatment Not on filedocumented as of this encounter Visit Diagnoses Not on filedocumented in this encounter Care Teams Glass Cutter Relationship Specialty Start Date End Date Roselyn Marroquin PA-C PCP - General Physician Roofer Gypsum 08/09/16 [address] [place] [address] documented as of this encounter
--- OUTSIDE RECORDS SUMMARY | 2022-06-13 08:34 | XMS_ITS | Clinical Summary ---
:1985 Author Organization [facility] Address [address] [place] [address] Care Team Providers Name Role Phone Roselyn [...] for each transition of care or referral. [employer] Allergies No known active allergies Medications Medication [...] Abnormal Pap smear of cervix 12/18/2017 Overview: [facility] Review: History: 2016: ASCUS HPV+ (non [...] (ActHIB) 08/21/1986 Influenza IIV4 (Quadrivalent) 0.5mL 08/25/2020 (12217) MMR 03/02/1986 OPV, Trivalent (Orimune or tOPV) [...] Comments Blood Pressure 122/82 09/26/2019 3:41 PM FILLER SIFTER HELPER Pulse 88 09/26/2019 3:41 PM FILLER SIFTER HELPER Temperature 36.8 ??C (98.2 ??F) 09/26/2019 3:41 PM FILLER SIFTER HELPER Respiratory Rate 16 09/26/2019 3:41 PM FILLER SIFTER HELPER Oxygen Saturation 98% 08/28/2018 4:49 PM FILLER SIFTER HELPER Inhaled Oxygen Concentration - - Weight 52.6 kg (116 lb) 09/26/2019 3:41 PM FILLER SIFTER HELPER Height 170.2 cm (5' 7) 09/26/2019 3:41 PM FILLER SIFTER HELPER Body Mass Index 18.17 09/26/2019 3:41 PM FILLER SIFTER HELPER Plan of Treatment Health Maintenance Due Date [...] e / Group Dates BCBS BCBS PMAP [id number] 2020-Pres [address] icaid BLUE ent [id number] AD[address] [place] [phone] [facility] PMAP [id number] 2018-Pre Medicaid DENTAL PLAN ADULT DENTAL sent [phone] [place] [address] (Home) [phone] [address] 6 (Work) [id number] Betty Tai Personal/Famil Self 1985 [phone] (Home) [place], [place] [phone] 6 (Work) Betty Tai Personal/Famil Self 1985 [phone] (Home) [place] [address] CHEYENNE MASSEY Personal/Famil Self 06/26/1956 [phone] (Home) [place] [address] Care Teams Will Call Order Clerk Relationship Specialty Start Date End Date Roselyn Marroquin PA-C PCP - General Physician Email Marketing Manager 08/09/16 [address] [place] [address]
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
--- OUTSIDE RECORDS SUMMARY | 2022-06-13 08:34 | XMS_ITS | Encounter Summary ---
:1985 Author Organization [facility] Address [address], [place] [address] Care Team Providers Name Role Phone Lopez Roselyn Lynn PA-C Primary Care Provider Reason for Visit Procedure/Equipment (Routine) - Incomplete Specialty Diagnoses / Procedures Referred By Contact Refer red To Contact Diagnoses Acute left ankle pain Anug Saeed PA-C Procedures XR Foot 3+ Views/Ankle 2 Views Series Lt [address] [place] [address] Referral ID Status Reason Start Date Expiration Date Visits V isits Requested Authorized [id number] Incomplete 05/29/2018 08/28/2019 1 1 Encounter Details Date Type Department Care Team Description 05/29/2018 [facility] [address] [place] [address] Social History Tobacco Use Types [...] on filedocumented in this encounter Care Teams Bus Driver/Monitor Relationship Specialty Start Date End Date Roselyn Marroquin PA-C PCP - General Physician Lending Activities Supervisor 08/09/16 [address] [place] [address] documented as of this encounter
--- OUTSIDE RECORDS SUMMARY | 2022-06-13 08:34 | XMS_ITS | Encounter Summary ---
:1985 Author Organization [facility] Address [address], [place] [address] Care Team Providers Name Role Phone Roselyn Marroquin PA-C Primary Care Provider Encounter Details Date Type Department Care Team Description 01/18/2019 Orders Only [facility] Mariam Herrera, [facility] Dentistry [address] [facility] [address] [place] [address] [place], [place] [address] [phone] Social History Tobacco Use Types Packs/Day Years [...] on filedocumented in this encounter Care Teams Information Security Specialist Relationship Specialty Start Date End Date Roselyn Marroquin PA-C PCP - General Physician Wheel And Pinion Inspector 08/09/16 [address] [place] [address] documented as of this encounter
--- OUTSIDE RECORDS SUMMARY | 2022-06-13 08:34 | XMS_ITS | Encounter Summary ---
:1985 Author Organization [facility] Address [address], [place] [address] Care Team Providers Name Role Phone Lopez Roselyn Lynn PA-C Primary Care Provider Reason for Visit Reason Comments Dysuria frequency fatigue hematuria [id number] Encounter Details Date Type Department Care Team Description 09/26/2019 Office Visit [place] [facility] Matt Percy J, Dysuria (Primary Dx); Medicine PA-C Hematuria, microscopic [address] [address] [place] [address] [phone] Social History Tobacco Use Types Packs/Day Years [...] Comments Blood Pressure 122/82 09/26/2019 3:41 PM POURER BUGGY LADLE Pulse 88 09/26/2019 3:41 PM POURER BUGGY LADLE Temperature 36.8 ??C (98.2 ??F) 09/26/2019 3:41 PM POURER BUGGY LADLE Respiratory Rate 16 09/26/2019 3:41 PM POURER BUGGY LADLE Oxygen Saturation - - Inhaled Oxygen Concentration - - Weight 52.6 kg (116 lb) 09/26/2019 3:41 PM POURER BUGGY LADLE Height 170.2 cm (5' 7) 09/26/2019 3:41 PM POURER BUGGY LADLE Body Mass Index 18.17 09/26/2019 3:41 PM POURER BUGGY LADLE documented in this encounter Patient Instructions Patient [...] symptoms, feeling sicker, or any other concerns. ER BUGGY LADLE documented in this encounter Progress Notes Percy Gutierrez PA-C - 09/26/2019 3:20 PM CST Chief Complaint Patient presents with ??? Dysuria frequency fatigue hematuria [id number] History of present illness: Betty Tai is [...] Protein, Urine Qual (mg/dL) Trace 09/26/2019 Specific [place], Urine 1.015 09/26/2019 Urobilinogen, Urine (EU/dL) 0.2 [...] symptoms, feeling sicker, or any other concerns. ER BUGGY LADLE documented in this encounter Plan of Treatment Not on filedocumented as of this encounter Results (ABNORMAL) Urine Culture (09/26/2019 3:48 PM POURER BUGGY LADLE) Component Value Ref Test Method Analysis Performed Patholog ist Range Time At Signature Urine Growth (A) 09/28/2019 [facility] Culture 10:34 AM HOSPITAL POURER BUGGY LADLE Urine 10,000 - 50,000 GIANLUCA 09/28/2019 [facility] Culture CFU/mL SENSITIVITY 10:34 AM [facility] Staphylococcus POURER BUGGY LADLE saprophyticus Specimen Anatomical Collection Method Collection Time Receive d Time (Source) Location / / Volume Laterality Urine URINE SPECIMEN Non-blood 09/26/2019 3:48 PM 019 3:48 COLLECTION, CLEAN Collection / POURER BUGGY LADLE PM POURER BUGGY LADLE CATCH / Unknown Unknown Narrative [facility] - 09/28/2019 10:[address] Routine testing of urine isolates of Sta phylococcus saprophyticus is not advised, because infections respond to concentrat ions achieved in urine of antimicrobial agents commonly used to treat acute, unc omplicated UTIs (eg, nitrofurantoin, trimethoprim ?? sulfamethoxazole, or a f luoroquinolone). Percy Gutierrez PA-C LAB_1 Performing Organization Address City/State/ZIP Code Phon e Number [address] [address] (ABNORMAL) Urine Dipstick NPT (09/26/2019 3:48 PM POURER BUGGY LADLE) Patholo gist Method Time Signature Glucose Urine Negative Negative 09/26/2019 [facility] Qual (mg/dL) 3:55 PM POURER BUGGY LADLE Bilirubin Negative Negative 09/26/2019 [facility] Urine 3:55 PM POURER BUGGY LADLE Ketones, Negative Negative 09/26/2019 [facility] Urine (mg/dL) 3:55 PM POURER BUGGY LADLE Specific 1.015 1.005 - 09/26/2019 [facility] [place], 1.030 3:55 PM POURER BUGGY LADLE Urine Blood, Urine Trace Neg/Trace 09/26/2019 [facility] 3:55 PM POURER BUGGY LADLE PH Urine 7.0 5.0 - 8.0 09/26/2019 [facility] 3:55 PM POURER BUGGY LADLE Protein, Trace Neg/Trace 09/26/2019 [facility] Urine Qual 3:55 PM POURER BUGGY LADLE (mg/dL) Urobilinogen, 0.2 <2.0 09/26/2019 [facility] Urine (EU/dL) 3:55 PM POURER BUGGY LADLE Nitrite Urine Negative Negative 09/26/2019 [facility] 3:55 PM POURER BUGGY LADLE Leukocyte Large (A) Negative 09/26/2019 [facility] Est. 3:55 PM POURER BUGGY LADLE Urine Color Yellow Straw-Yellow 09/26/2019 [facility] 3:55 PM POURER BUGGY LADLE Urine Clarity Hazy (A) Clear 09/26/2019 [facility] 3:55 PM POURER BUGGY LADLE Specimen Anatomical Collection Method Collection Time Receive d Time (Source) Location / / Volume Laterality Urine URINE SPECIMEN Non-blood 09/26/2019 3:48 PM 019 3:48 COLLECTION, CLEAN Collection / POURER BUGGY LADLE PM POURER BUGGY LADLE CATCH / Unknown Unknown Percy Gutierrez PA-C LAB_1 Performing Organization Address City/State/ZIP Code Phon e Number [facility] [address] [place] [address] [phone] [facility] [address] [place] [address] [place] [phone] documented in this encounter Visit Diagnoses Diagnosis Dysuria - Primary Hematuria, microscopic Microscopic hematuria documented in this encounter Care Teams Metal Stamping Machine Operator Relationship Specialty Start Date End Date Roselyn Marroquin PA-C PCP - General Physician Processing Clerk 08/09/16 [address] [place] [address] documented as of this encounter
--- OUTSIDE RECORDS SUMMARY | 2022-06-13 08:34 | XMS_ITS | Encounter Summary ---
:1985 Author Organization [employer] Address [address] [address] Care Team Providers Name Role Phone LopezVinnyRoselyndonald Lynn PA-C Primary Care Provider Reason for Visit Reason Comments Dysuria couple day, blood in urine a nd when wiping Encounter Details Date Type Department Care Team Description 06/26/2018 Office Visit [facility] Jarett Gutierrez MD Acute cystitis with hematuria (Primary D x); Medicine [address] [place] [address] Viral upper respiratory tract infection; [address] [place], [place] Dysuria; [place] [address] Encounter for test, result unk nown [phone] (Wo rk) Social History Tobacco Use Types [...] Body Mass Index 20.03 12/06/2017 9:54 AM STEWARD/STEWARDESS SECOND documented in this encounter Patient Instructions Patient [...] can you learn more? 1. Go to [employer] or [employer]/KSKT. 2. Enter K848 in the search box. Current as of: March 02, 2017 Content Version: 11.7 ?? [id number] [employer]. 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 Smoking status: [...] - Trace mg/dL Final ??? U Specific [place] 06/26/2018 1.020 1.005 - 1.030 Final ??? [...] - 06/26/2018 2:44 PM CDT Performed at [facility], [address] [place] [address] CLIA number [id number] Jarett Gutierrez MD LAB_1 Performing Organization Address [facility] Phon e Number PN SOFT [address] [place] [address] (ABNORMAL) Urine Microscopic (06/26/2018 2:05 PM CDT) [...] - 06/26/2018 2:19 PM CDT Performed at [facility], [address] [place] [address] CLIA number [id number] Jarett Gutierrez MD LAB_1 Performing Organization Address [facility] Phon e Number PN SOFT [address] [place] [address] (ABNORMAL) Urine Culture (06/26/2018 2:05 PM CDT) [...] - 06/27/2018 8:58 PM CDT Performed at [facility], [address] [place] [address], CLIA Number [id number] Jarett Gutierrez MD LAB_1 Performing Organization Address [facility] Phon e Number PN SOFT [address] [place], [place] [address] [phone] (ABNORMAL) Urinalysis Routine, Micro/Culture if Pos (06/26/2018 2:05 PM CDT) [facility] Method Time Signature Urine Type URINE:clean PN [...] U Specific 1.020 1.005 - PN SOFT [place] 1.030 Urobilinogen Negative Negative PN SOFT Urine Eu/dL Specimen (Source) Anatomical Collection Method Collection Time Re ceived Time Location / / Volume Laterality Urine: 06/26/2018 2:05 PM CDT Narrative PN SOFT - 06/26/2018 2:11 PM CDT Performed at [facility], [address] [place] [address] CLIA number [id number] Jarett Gutierrez MD LAB_1 Performing Organization Address [facility] Phon e Number PN SOFT [address] [place] [address] [phone] documented in this encounter Visit Diagnoses Diagnosis Acute cystitis with hematuria - Primary Acute cystitis Viral upper respiratory tract infection Acute upper respiratory infections of un specified site Dysuria Encounter for test, result unk nown documented in this encounter Care Teams Tombstone Erector Relationship Specialty Start Date End Date Roselyn Marroquin PA-C PCP - General Physician Arch Support Maker 08/09/16 [address] [place] [address] documented as of this encounter
--- OUTSIDE RECORDS SUMMARY | 2022-06-13 08:34 | XMS_ITS | Encounter Summary ---
:1985 Author Organization [facility] Address [address] [place] [address] Care Team Providers Name Role Phone Roselyn Marroquin PA-C Primary Care Provider Encounter Details Date Type Department Care Team Description 08/25/2020 Immunization [place] [address] Flu Need for prophylactic Clinic vaccination and [address] [place] [address] influenza [phone] Social History Tobacco Use Types Packs/Day Years [...] influenza documented in this encounter Care Teams Bench Worker Helper Relationship Specialty Start Date End Date Roselyn Marroquin PA-C PCP - General Physician Manager Transition 08/09/[address] [place], [place] [address] documented as of this encounter
--- OUTSIDE RECORDS SUMMARY | 2022-06-13 08:34 | XMS_ITS | Encounter Summary ---
:1985 Author Organization [facility] Address [address] [address] Care Team Providers Name Role Phone LopezVinnyRoselyndonald Lynn PA-C Primary Care Provider Reason for Visit Reason Comments Procedure colposcopy Encounter Details Date Type Department Care Team Description 12/25/2017 Procedure Visit [facility] Igor Kaufman Procedure Services-BRANCH CONTROLLER MD Tucker (colposcopy) [address], [address] [place] [address] [place], [place] [phone] (Wo rk) [address] [phone] Social History Tobacco Use Types Packs/Day Years [...] Patient notified. Pap/HPV advised in 1 year K UNLOADER Igor Kaufman - 12/25/2017 1:00 PM CST [...] findings. Post biopsy instructions given to patient. K UNLOADER documented in this encounter Plan of Treatment Not on filedocumented as of this encounter Procedures Procedure Name Priority Date/Time Associated Comments Diagnosis CLINIC OBTAINED Routine 12/25/2017 1:27 PM Pap smear of cervix Results for this ANATOMICAL PATHOLOGY STOCK UNLOADER with ASCUS, cannot p rocedure are in exclude HGSIL the results section. SURGICAL PATH, [place] Routine 12/25/2017 6:00 AM Re sults for this [facility] STOCK UNLOADER procedure are i n the results section. documented in this encounter Results Clinic Obtained Tissue [TIS] (12/25/2017 1:27 PM STOCK UNLOADER) athologist Signature CLINIC Received PN SOFT OBTAINED TISSUE Specimen Anatomical Collection Method Collection Time Receive d Time (Source) Location / / Volume Laterality 12/25/2017 1:27 PM 8 6:26 STOCK UNLOADER PM STOCK UNLOADER Narrative PN SOFT - 12/25/2017 6:52 PM STOCK UNLOADER Performed at [facility], [address] [place] [address] CLIA number [id number] Igor Kaufman MD LAB_1 Performing Organization Address City/State/ZIP Code Phon e Number PN SOFT [address] [place] [address] Pathology Report (12/25/2017 6:00 AM STOCK UNLOADER) [facility] gist Method Time Signature Path: FINAL SURGICAL PATHOLOGY REPORT PN SOFT Pathology #: [id number] ? Date Obtained: 12/25/2017 ?Date Received: 12/25/2017 [...] microscopic examination has been performed. Performed at [facility], [address] [facility], [place] [address] Specimen Anatomical Collection Method Collection Time Receive d Time (Source) Location / / Volume Laterality OTHER / Unknown 12/25/2017 6:00 AM 2017 6:00 STOCK UNLOADER AM STOCK UNLOADER Igor Kaufman MD LAB_1 Performing Organization Address City/State/ZIP Code Phon e Number PN SOFT [address] [place] [address] documented in this encounter Visit Diagnoses Diagnosis Pap smear of cervix with ASCUS, cannot e xclude HGSIL - Primary Papanicolaou smear of cervix with atypic al squamous cells cannot exclude high grade squamous intraepithelial lesion (ASC-H) documented in this encounter Care Teams Auditing Coder Relationship Specialty Start Date End Date Roselyn Marroquin PA-C PCP - General Physician Mathematician 08/09/16 [address] [place] [address] documented as of this encounter
--- OUTSIDE RECORDS SUMMARY | 2022-06-13 08:34 | XMS_ITS | Encounter Summary ---
:1984 Author Organization [facility] Address [address] [place] [address] Care Team Providers Name Role Phone LopezRoselyn STU Primary Care Provider Reason for Referral Procedure/Equipment (Routine) - Incomplete Specialty Diagnoses / Procedures Referred By Contact Refer red To Contact Diagnoses Acute left ankle pain Aung Saeed PA-C Procedures XR Foot 3+ Views/Ankle 2 Views Series Lt [address] [facility] [address] [place] [address] Referral ID Status Reason Start Date Expiration Date Visits V isits Requested Authorized [id number] Incomplete 05/29/2018 08/28/2019 1 1 Reason for Visit Reason Comments ANKLE PAIN Encounter Details Date Type Department Care Team Description 05/29/2018 Hospital Encounter [facility] Aung Saeed Ac dustin left ankle pain; Esteban Osorio PA-C Sprain of left ankle, unspecified ligame nt, initial encounter [address] [facility] [address] [place] [address] E [phone] [place] [address] Social History Tobacco Use Types Packs/Day Years [...] 12:00 PM CDT NAME: TELLO TERRELL MR#: [id number] CSN: [id number] AUTHENTICATING CLINICIAN: Aung Saeed PA-C CONFIRM #: [id number] LOC: 520 URGENT CARE PROGRESS NOTE DATE [...] it hurts. 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 SSK:JACOBY C: CONFIRM #: [id number] documented in this encounter Plan of Treatment [...] out. documented in this encounter Care Teams Instructional Technology Specialist Relationship Specialty Start Date End Date Roselyn Marroquin PA-C PCP - General Physician Kiss Mixer 08/09/16 [address] [place] [address] documented as of this encounter
--- OUTSIDE RECORDS SUMMARY | 2022-06-13 08:35 | XMS_ITS | Encounter Summary ---
:1984 Author Organization [facility] Address [address] [place] [address] Care Team Providers Name Role Phone Roselyn Marroquin PA-C Primary Care Provider Encounter Details Date Type Department Care Team Description 08/09/2016 Lab Visit [facility] Encounter for screening for lipoid disorders; [address]. Screening for diabetes donato keller; [place] [address] Dysmenorrhea; [phone] Metrorrhagia Social History Tobacco Use Types Packs/Day [...] - 08/09/2016 11:28 PM CDT Performed at [facility] [address] [place] [address] CLIA number [id number] Roselyn Marroquin PA-C LAB_1 Performing Organization Address City/State/ZIP Code Phon e Number PN SOFT [address] [place] [address] [phone] (ABNORMAL) CBC - Complete Blood Count-No Diff (08/09/2016 2:27 PM CDT) [facility] gist Method Time Signature White Blood [...] - 08/09/2016 2:34 PM CDT Performed at [facility], [address] [place] [address] CLIA number [id number] Roselyn Marroquin PA-C LAB_1 Performing Organization Address City/[facility]/ZIP Code Phon e Number PN SOFT [address] [place] [address] Glucose (08/09/2016 2:27 PM CDT) P athologist Signature Lab Glucose 91 60 - 100 PN SOFT mg/dL Specimen Anatomical Collection Method Collection Time Receive d Time (Source) Location / / Volume Laterality 08/09/2016 2:27 PM 6 5:08 CDT PM CDT Narrative PN SOFT - 08/09/2016 5:27 PM CDT Performed at [facility], [address] [place] [address] CLIA number [id number] Roselyn Marroquin PA-C LAB_1 Performing Organization Address [facility] Phon e Number PN SOFT [address] [place] [address] Lipid Panel - LDLD If Trig High [...] - 08/09/2016 5:27 PM CDT Performed at [facility], [address] [place] [address] CLIA number [id number] Roselyn Marroquin PA-C LAB_1 Performing Organization Address City/[facility]/ZIP Code Phon e Number PN SOFT [address] [place] [address] documented in this encounter Visit Diagnoses Diagnosis Encounter for screening for lipoid disor ders Screening for lipoid disorders Screening for diabetes mellitus Dysmenorrhea Metrorrhagia documented in this encounter Care Teams Prevention Coordinator Relationship Specialty Start Date End Date Roselyn Marroquin PA-C PCP - General Physician Tree Worker 08/09/16 [address] [place] [address] documented as of this encounter
--- OUTSIDE RECORDS SUMMARY | 2022-06-13 08:35 | XMS_ITS | Encounter Summary ---
:1985 Author Organization [facility] Address [address] [address] Care Team Providers Name Role Phone LopezRoselyn Shane PERAZA Primary Care Provider Reason for Visit Reason Comments Dental Conversion [facility] to [place] convers ion Encounter Details Date Type Department Care Team Description 03/29/2017 Dental Conversion [facility] Fatmata Sánchez, [facility] [address] [facility] [address] [place], [place] [address] [place], [place] [phone] [address] Social History Tobacco Use Types Packs/Day Years [...] on filedocumented in this encounter Care Teams Email Developer Relationship Specialty Start Date End Date Roselyn Marroquin PA-C PCP - General Physician Procurement Assistant 08/09/16 [address] [place] [address] documented as of this encounter
--- OUTSIDE RECORDS SUMMARY | 2022-06-13 08:35 | XMS_ITS | Encounter Summary ---
:1984 Author Organization [facility] Address [address], [place] [address] Care Team Providers Name Role Phone Roselyn Marroquin PA-C Primary Care Provider Reason for Visit Reason Comments COLPOSCOPY Encounter Details Date Type Department Care Team Description 09/05/2016 Procedure Visit [facility] Igor Stevenson COLPOSCOPY Services-OWNER/OPERATOR MD Tucker [address] [place] [address], [address] [place] [address] [address] [place] [address] [place], [place] [phone] (Wo rk) [address] [phone] Social History Tobacco Use Types Packs/Day Years [...] Notes Igor Stevenson - 09/05/2016 2:20 PM SENIOR SOFTWARE PROJECT MANAGER Addended by: IGOR STEVENSON on: 09/05/2016 02:20 PM Modules accepted: Orders OR SOFTWARE PROJECT MANAGER Igor Stevenson - 09/05/2016 1:38 PM CST [...] findings. Post biopsy instructions given to patient. OR SOFTWARE PROJECT MANAGER Igor Stevenson - 09/05/2016 1:35 PM SENIOR SOFTWARE PROJECT MANAGER Quick Note: Patient notified OR SOFTWARE PROJECT MANAGER documented in this encounter Plan of Treatment Not on filedocumented as of this encounter Procedures Procedure Name Priority Date/Time Associated Comments Diagnosis CLINIC OBTAINED Routine 09/05/2016 2:33 PM ASCUS with positive Results for this ANATOMICAL PATHOLOGY SENIOR SOFTWARE PROJECT MANAGER high risk HPV proced ure are in cervical the results section. SURGICAL B[place]Y [place] Routine 09/05/2016 2:33 PM Re sults for this [place] SENIOR SOFTWARE PROJECT MANAGER procedure are i n the results section. POCT URINE Routine 09/05/2016 1:15 PM Encounter for Results for this SENIOR SOFTWARE PROJECT MANAGER test, procedure ar e in result unknown the results section. documented in this encounter Results Pathology Report (09/05/2016 2:33 PM SENIOR SOFTWARE PROJECT MANAGER) Specimen (Source) Anatomical Collection Method Collection Time Re ceived Time Location / / Volume Laterality 09/05/2016 2:33 PM SENIOR SOFTWARE PROJECT MANAGER Narrative PN SOFT - 09/07/2016 10:36 AM SENIOR SOFTWARE PROJECT MANAGER FINAL SURGICAL PATHOLOGY REPORT Pathology #: [id number] ? Date Obtained: 09/05/2016 ?Date Received: 09/06/2016 [...] MICROSCOPIC DESCRIPTION: Microscopic examination performed Performed at [place] [address] [place] [address] Igor Stevenson MD LAB_1 Performing Organization Address [facility] Phon e Number PN SOFT [address] [place] [address] Clinic Obtained Tissue [TIS] (09/05/2016 2:33 PM SENIOR SOFTWARE PROJECT MANAGER) P athologist Signature CLINIC Received PN SOFT OBTAINED TISSUE Specimen Anatomical Collection Method Collection Time Receive d Time (Source) Location / / Volume Laterality 09/05/2016 2:33 PM 6 2:32 SENIOR SOFTWARE PROJECT MANAGER AM SENIOR SOFTWARE PROJECT MANAGER Narrative PN SOFT - 09/06/2016 2:33 AM SENIOR SOFTWARE PROJECT MANAGER Performed at [facility], [address] [place] [address] CLIA number [id number] Igor Stevenson MD LAB_1 Performing Organization Address City/[facility] Phon e Number PN SOFT [address] [place] [address] POCT urine (09/05/2016 1:15 PM SENIOR SOFTWARE PROJECT MANAGER) [facility] gist Method Time Signature Urine Negative PN EXTERNAL Test - POC LAB-SEE SCANNED DOCUMENT Control Line Yes PN EXTERNAL Present, Clear LAB-SEE Background - SCANNED Internal DOCUMENT control Cartridge Lot# [id number] PN EXTERNAL LAB-SEE SCANNED DOCUMENT Comment: exp: Specimen (Source) Anatomical Collection Method Collection Time Re ceived Time Location / / Volume Laterality Urine specimen 09/05/2016 1:15 PM (specimen) SENIOR SOFTWARE PROJECT MANAGER Igor Stevenson MD PN POINT OF CARE TESTS Performing Organization Address City/State/ZIP Code Phon e Number PN EXTERNAL LAB-SEE SCANNED DOCUMENT documented in this encounter Visit Diagnoses Diagnosis ASCUS with positive 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
--- OUTSIDE RECORDS SUMMARY | 2022-06-13 08:35 | XMS_ITS | Encounter Summary ---
:1985 Author Organization [facility] Address [address] [place] [address] Care Team Providers Name Role Phone Roselyn Marroquin PARavinderC Primary Care Provider Reason for Visit Reason Comments Pharyngitis Encounter Details Date Type Department Care Team Description 11/15/2017 Hospital Encounter [facility] re Brenda Mancia, Sore throat; [address] Glycosan PAEarnestine Viral illness [place], [place] [id number] [address] [facility] [phone] [place], [place] [id number] (Wo rk) Social History Tobacco Use Types [...] Comments Blood Pressure 109/74 11/15/2017 12:27 PM AIR TUBE RELEASER Pulse 86 11/15/2017 12:27 PM AIR TUBE RELEASER Temperature 36.7 ??C (98.1 ??F) 11/15/2017 12:27 PM AIR TUBE RELEASER Respiratory Rate 16 11/15/2017 12:27 PM AIR TUBE RELEASER Oxygen Saturation 97% 11/15/2017 12:27 PM AIR TUBE RELEASER Inhaled Oxygen Concentration - - Weight - - Height - - Body Mass Index - - documented in this encounter Discharge Instructions AttachmentsThe following attachments cannot be sent through Care Everywhere. INFLUENZA (IRISH)documented in this encounter Medications at Time of [...] in 2000 ??? Metrorrhagia ??? Tobacco abuse ([facility]) 01/04/2015 OBJECTIVE: Vital Signs: BP 109/74 Pulse [...] STREP GROUP A WAIVED Narrative: Performed at [facility], [address] [place] [address] CLIA number [id number] BETA STREP RESP CULT Narrative: Performed at [facility], [address] [place] [address], CLIA Number [id number] Orders Placed This Encounter ??? Rapid Strep [...] recognition software and may contain typographic errors. TUBE RELEASER documented in this encounter Plan of Treatment Not on filedocumented as of this encounter Procedures Procedure Name Priority Date/Time Associated Diagnosis Comme nts BETA STREP RESP STAT 11/15/2017 12:40 PM Sore throat Resul ts for this CULT AIR TUBE RELEASER procedure are i n the results section. GROUP A STREP STAT 11/15/2017 12:29 PM Sore throat Results for this ANTIGEN SCREEN AIR TUBE RELEASER procedure are in the results section. documented in this encounter Results Strep Screen Culture Throat (CSS) (11/15/2017 12:40 PM AIR TUBE RELEASER) [facility] gist Method Time Signature Source Throat PN SOFT Site PN SOFT Strep Screen No Group A 11/17/2017 PN SOFT Streptococcus 7:18 AM AIR TUBE RELEASER Isolated Specimen (Source) Anatomical Collection Method Collection Time Re ceived Time Location / / Volume Laterality Throat: 11/15/2017 12:40 PM AIR TUBE RELEASER Narrative PN SOFT - 11/17/2017 7:18 AM AIR TUBE RELEASER Performed at [facility], [address] [place] [address], CLIA Number [id number] Ace PATEL LAB_1 Performing Organization Address City/State/ZIP Code Phon e Number PN SOFT [address] [place] [address] Rapid Strep Group A Waived (RSAW) (11/15/2017 12:29 PM AIR TUBE RELEASER) athologist Signature Strep A Negative Negative PN SOFT Antigen Strep A Source THROA: PN SOFT Specimen Anatomical Collection Method Collection Time Receive d Time (Source) Location / / Volume Laterality 11/15/2017 12:29 11/15/2017 1:33 PM AIR TUBE RELEASER PM AIR TUBE RELEASER Narrative PN SOFT - 11/15/2017 1:35 PM AIR TUBE RELEASER Performed at [facility], [address] [facility], [place] [address] CLIA number [id number] Ace Joseph AMANDA LAB_1 Performing Organization Address City/State/ZIP Code Dieter deras Number PN SOFT [address] [place] [address] documented in this encounter Visit Diagnoses Diagnosis Sore throat Acute pharyngitis Viral illness Unspecified viral infection, in conditio ns classified elsewhere and of unspecified site Triage Assessment Note - Alona Matos RN - 11/15/2017 12:25 PM AIR TUBE RELEASER Patient is an established patient according to [facility] policy and definition? Yes: SORE THROAT: R/O [...] hasextended contact (i.e., day care worker or substitute school nurse) with a person who had strep within the last 10 days. OBJECTIVE Objective exam of patient indicates red throat. Phone number: Telephone Information: Work Phone Not on file. ASSESSMENT Sore throat. Alona Matos RN TUBE RELEASER documented in this encounter Care Teams Form Maker Relationship Specialty Start Date End Date Roselyn Marroquin PA-C PCP - General Physician It Business Systems Analyst 08/09/16 [address] [place] [address] documented as of this encounter
--- OUTSIDE RECORDS SUMMARY | 2022-06-13 08:35 | XMS_ITS | Encounter Summary ---
:1985 Author [facility] Address [address] [place] [address] Care Team Providers Name Role Phone Needs Pcp, Assignment Primary Care Provider Reason for Visit Reason Onset Date Comments Other 07/31/2016 Encounter Details Date Type Department Care Team Description 07/31/2016 Telephone CODING DEPT ONLY 5050 Needs Pcp, Assignment Other FAMILY MEDICINE [place] [facility] [address] [place] [address] [address] Social History Tobacco Use Types Packs/Day Years [...] on filedocumented in this encounter Care Teams Oil Heater Operator Relationship Specialty Start Date End Date Needs Pcp, Assignment PCP - General 02/18/16 08/08/16 [place] [address] documented as of this encounter
--- OUTSIDE RECORDS SUMMARY | 2022-06-13 08:35 | XMS_ITS | Encounter Summary ---
:[address] [address] [facility] Address [address] [place] [address] Care Team Providers Name Role Phone Roselyn Marroquin PA-C Primary Care Provider Reason for Visit Reason Onset Date Comments Medication Questions 08/09/2016 seeking clarity on medication's directions Encounter Details Date Type Department Care Team Description 08/09/2016 Telephone [facility] Roselyn Marroquin, Medicat ion Questions Medicine STU ([place] [address] [address] [facility] medication's directions [place], [place] [address] ) [address] [phone] Social History Tobacco Use Types Packs/Day Years [...] on filedocumented in this encounter Care Teams Instructor Wastewater Treatment Plant Relationship Specialty Start Date End Date Roselyn Marroquin PA-C PCP - General Physician Sap Fico Architect 08/09/16 [address] [place] [address] documented as of this encounter
--- OUTSIDE RECORDS SUMMARY | 2022-06-13 08:35 | XMS_ITS | Encounter Summary ---
:1985 Author Organization [facility] Address [address] [place] [address] Care Team Providers Name Role Phone Roselyn Marroquin PA-C Primary Care Provider Reason for Visit Reason Comments ROUTINE HEALTH MAINTENANCE Encounter Details Date Type Department Care Team Description 12/06/2017 Office Visit [facility] Juaquin Corona Well ad ult exam (Primary Dx); Medicine Pap smear of cervix reminder not needed forever; [address] [address] [address]W Tinea versicolor; [place], [place] Tobacco abuse [address] [phone] Social History Tobacco Use Types Packs/Day Years [...] Comments Blood Pressure 110/62 12/06/2017 9:54 AM CLERICAL PRODUCTION WORKER Pulse 88 12/06/2017 9:54 AM CLERICAL PRODUCTION WORKER Temperature - - Respiratory Rate - - Oxygen Saturation - - Inhaled Oxygen Concentration - - Weight 55.4 kg (122 lb 1.6 oz) 12/06/2017 9:54 AM CLERICAL PRODUCTION WORKER Height 165.7 cm (5' 5.25) 12/06/2017 9:54 AM CLERICAL PRODUCTION WORKER Body Mass Index 20.16 12/06/2017 9:54 AM CLERICAL PRODUCTION WORKER documented in this encounter Progress Notes Sonia Alexander RN - 12/19/2017 12:12 PM CST See telephone encounter initiated 12/19/2017 to notify patient of results. ICAL PRODUCTION WORKER Juaquin Corona MD - 12/06/2017 10:00 AM [...] (DIFLUCAN) 150 MG tablet 4. Tobacco abuse ([facility]) Z72.0 nicotine (NICODERMCQ) 14 MG/24HR patch 2. [...] year Juaquin Corona MD 9:13 AM 12/07/2017 ICAL PRODUCTION WORKER documented in this encounter Plan of Treatment Not on filedocumented as of this encounter Procedures Procedure Name Priority Date/Time Associated Comments Diagnosis PAP TEST ORDER Routine 12/06/2017 10:26 AM Pap smear of cervix Results for this CLERICAL PRODUCTION WORKER reminder not needed procedur e are in forever the results section. HPV WITH 16 18 Routine 12/06/2017 10:26 AM Well adult exam Res ults for this GENOTYPING, CLERICAL PRODUCTION WORKER procedure are i n CERVICAL/ENDOCERVICA the res ults L section. ANATOMICAL PATH Routine 12/06/2017 10:26 AM Well adult exam Re sults for this LIQUID BASED CLERICAL PRODUCTION WORKER procedure are i n the results section. documented in this encounter Results Pap Smear (12/06/2017 10:26 AM CLERICAL PRODUCTION WORKER) Specimen (Source) Anatomical Collection Method Collection Time Re ceived Time Location / / Volume Laterality 12/06/2017 10:26 AM CLERICAL PRODUCTION WORKER Narrative PN SOFT - 12/16/2017 6:26 PM CLERICAL PRODUCTION WORKER FINAL GYNECOLOGICAL CYTOLOGY REPORT Pathology #: [id number] ?Date Obtained: 12/06/2017 ? Date Received: 12/07/2017 INTERPRETATION/RESULTS: Atypical squamous cells, cannot exclude high grade squamous intraepithelial lesion (ASC-H). SPECIMEN ADEQUACY: Satisfactory for Evaluation. ??Endocervi eusebio cells/transformation zone component present. Verified on 12/16/2017 ??by HENRIQUE BUENROSTRO MD (electronic signature) CLINICAL NOTES: ?Abnormal bleeding: No, LMP: [id number], Menstrual status: None ?Apply, Current form of [...] false-negative report s may occur. Performed at [facility], [address] [place] [address] Juaquin Corona MD LAB_1 Performing Organization Address City/State/ZIP Code Phon e Number PN SOFT [address] [place] [address] [phone] (ABNORMAL) HPV with 16 18 Genotyping (12/06/2017 10:26 AM CLERICAL PRODUCTION WORKER) [facility] gist Method Time Signature HPV High Risk Not Detected PN SOFT 16 HPV High Risk Not Detected PN SOFT 18 Other HPV High Detected (A) PN SOFT Risk Not 16/18 Comment: ........................................ ................................. The Manpreet HPV Test is a qualitative in v itro test for the detection of Human Papillomavirus in [facility] ePa patient specimens. ??The test utilizes amplifica [...] and its pe rformance characteristics determined by [facility]. It has not been cleared or approved by [facility]. The laboratory is regulated under CLIA as qualified to perform high-complexity testing. This test is used for clinical purposes. It should not be regarded as investigational or fo r research. Specimen Anatomical Collection Method Collection Time Receive d Time (Source) Location / / Volume Laterality 12/06/2017 10:26 12/06/2017 AM CLERICAL PRODUCTION WORKER 10:26 AM CLERICAL PRODUCTION WORKER Narrative PN SOFT - 12/11/2017 1:11 PM CLERICAL PRODUCTION WORKER Performed at [place] [id number] CLIA number [id number] Juaquin Corona MD LAB_1 Performing Organization Address City/State/ZIP Code Phon e Number PN SOFT [address] [place] [address] Pap Test Order (12/06/2017 10:26 AM CLERICAL PRODUCTION WORKER) [facility] Pap Smear Collected PN SOFT Monolayer tracking test Specimen Anatomical Collection Method Collection Time Receive d Time (Source) Location / / Volume Laterality 12/06/2017 10:26 12/07/2017 4:41 AM CLERICAL PRODUCTION WORKER AM CLERICAL PRODUCTION WORKER Narrative PN SOFT - 12/06/2017 10:27 AM CLERICAL PRODUCTION WORKER Performed at [address] [address] CLIA number [id number] Juaquin Corona MD LAB_1 Performing Organization Address City/[facility]/ZIP [facility] Phon e Number PN SOFT [address] [place] [address] Lipid Panel - LDLD If Trig High [...] Volume Laterality 12/06/2017 12/06/2017 11:2 5 AM CLERICAL PRODUCTION WORKER Narrative PN SOFT - 12/06/2017 12:35 PM CLERICAL PRODUCTION WORKER Performed at [facility], [address] [place] [id number] CLIA number [id number] Juaquin Corona MD LAB_1 Performing Organization Address [facility] Phon e Number PN SOFT [address] [place] [address] Glucose (12/06/2017) P athologist Signature Lab Glucose 96 70 - 100 PN SOFT mg/dL Comment: The stated glucose range is for the fast ing state. Non-fasting glucose range is 70-180 mg/d L Specimen (Source) Anatomical Collection Method Collection Time Re ceived Time Location / / Volume Laterality 12/06/2017 12/06/2017 11:2 5 AM CLERICAL PRODUCTION WORKER Narrative PN SOFT - 12/06/2017 12:35 PM CLERICAL PRODUCTION WORKER Performed at [facility], [address] [place] [id number] CLIA number [id number] Juaquin Corona MD LAB_1 Performing Organization Address [facility]/ZIP Code Phon e Number PN SOFT [address] [place] [address] documented in this encounter Visit Diagnoses Diagnosis [...] facility documented in this encounter Care Teams Film Masker Relationship Specialty Start Date End Date Roselyn Marroquin PA-C PCP - General Physician Residential Program Director 08/09/16 [address] [place] [address] documented as of this encounter
--- OUTSIDE RECORDS SUMMARY | 2022-06-13 08:35 | XMS_ITS | Encounter Summary ---
:1985 Author Organization [facility] Address [address] [address] Care Team Providers Name Role Phone LopezVinnyRoselyndonald Lynn PA-C Primary Care Provider Encounter Details Date Type Department Care Team Description 08/09/2016 Lab Visit [facility] Urinary frequency [address] [place] [address] Social History Tobacco Use [...] Hold for Culture (08/09/2016 1:39 PM CDT) [facility] Method Time Signature Urine Type [...] U Specific 1.020 1.005 - PN SOFT [place] 1.030 Urobilinogen Negative Negative PN SOFT Urine Eu/dL Turbidity Clear Clear PN SOFT Color Yellow PN SOFT Specimen Anatomical Collection Method Collection Time Receive d Time (Source) Location / / Volume Laterality 08/09/2016 1:39 PM 6 1:39 CDT PM CDT Narrative PN SOFT - 08/09/2016 1:45 PM CDT Performed at [facility], [address] [place] [address] CLIA number [id number] Roselyn Marroquin PA-C LAB_1 Performing Organization Address City/State/ZIP Code Phon e Number PN SOFT [address] [place] [address] documented in this encounter Visit Diagnoses Diagnosis Urinary frequency documented in this encounter Care Teams District Fire Management Officer Relationship Specialty Start Date End Date Roselyn Marroquin PA-C PCP - General Physician Soda Fountain Manager 08/09/16 [address] [place] [address] documented as of this encounter
--- OUTSIDE RECORDS SUMMARY | 2022-06-13 08:35 | XMS_ITS | Encounter Summary ---
:1985 Author Organization [facility] Address [address], [place] [address] Care Team Providers Name Role Phone Roselyn Marroquin PA-C Primary Care Provider Reason for Visit Reason Onset Date Comments RESULTS, TEST 08/17/2016 Encounter Details Date Type Department Care Team Description 08/17/2016 Telephone [facility] Roselyn Michael PA-C RESULTS, TEST [address] [facility] [address] [place] [address] [place] [address] [phone] (Wo rk) Social History Tobacco Use Types [...] Kaufman MD BURFR OBG PN POE FR NG MACHINE OPERATOR FLOORPERSON Kellee Ramey, RN - 08/17/2016 10:59 AM CDT Pt had appt with Kylah on 08/09/16. Called pt with pap results of ASCUS, HPV+ other, colp indicated. Attempted to call pt, no vmail set up. Will try again documented in this encounter Plan of Treatment Not on filedocumented as of this encounter Visit Diagnoses Not on filedocumented in this encounter Care Teams Prototype Model Maker Relationship Specialty Start Date End Date Roselyn Marroquin PA-C PCP - General Physician Historical Site Guide 08/09/16 [address] [place] [address] documented as of this encounter
--- OUTSIDE RECORDS SUMMARY | 2022-06-13 08:35 | XMS_ITS | Encounter Summary ---
:1985 Author Organization [facility] Address [address] [place] [address] Care Team Providers Name Role Phone Roselyn Marroquin PA-C Primary Care Provider Reason for Referral Consult/Transfer Care (Routine) - Closed Specialty Diagnoses / Procedures Referred By Contact Refer red To Contact Diagnoses Dysmenorrhea Metrorrhagia Roselyn Marroquin PA-C [address] [place] [address] Referral ID Status Reason Start Date Expiration Date Visits Requ ested Visits Authorized [id number] Closed 08/09/2016 11/08/2017 1 1 Scheduling Instructions Your provider has recommended an appoint ment with [facility]. You may call [phone] to schedule your appointment. If you do [...] Department Care Team Description 08/09/2016 Office Visit [facility] Roselyn Marroquin, Annual physical exam (Primary Dx); Medicine STU Vaginal discharge; [address] [address] [facility] Urinary frequency; [place], [place] Encounter for screening for lipoid disorders; [id number] Screening for diabetes mellitus; [phone] Dysmenorrhea; (Work) Metrorrhagia; Encounter for smoking cessation [...] help with mood and energy. 5) Call NURSE CHARGE RN at number below to schedule to discuss [...] CBC. Discussed Mirena IUD, will send to golf course starter. Currently isn't doing any control. Is OK [...] pilates 3x per week. 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 Supplements: None. Side Piece Coverer History: : No obstetric history on file. LMP: Patient's last menstrual period was 07/17/2016 (exact date). Pap hx: Does patient have history of abnormal pap smear? yes. Years ago. Past Medical, Family, Surgical and Social History, Drug allergies and Medications have been reviewedand updated in [place] today. Review of Systems: The remainder of [...] external genitalia and urethra, without lesions noted. [place], moist vaginal and cervical mucosa, without lesions, [...] Encounter for smoking cessation counseling (HRC) PLAN: Betty was seen today for annual exam. Diagnoses [...] T4 (FRT4 If TSH Abnorm); Future - Ob-Drafting Engineer Consult Metrorrhagia - CBC - Complete Blood Count-No Diff; Future - TSH And Free T4 (FRT4 If TSH Abnorm); Future - Ob-Drafting Engineer Consult Encounter for smoking cessation counseling (HRC) [...] help with mood and energy. 5) Call NURSE CHARGE RN at number below to schedule to discuss Mirena IUD to help decrease the bleeding and cramping with your periods. 6) I'll notify you of your labs. Thanks, Roselyn Marroquin, PAC. documented in this encounter Plan of Treatment Scheduled Referrals Name Type Priority Associated Diagnoses Order S chedule Ob-Drafting Engineer Consult Referral Routine Dysmenorrhea Ordered: 08/09/2016 Metrorrhagia [...] - 08/09/2016 11:28 PM CDT Performed at [facility], [address] [place] [address] CLIA number [id number] Roselyn Marroquin PA-C LAB_1 Performing Organization Address City/[facility] [place] [facility] Phon e Number PN SOFT [address] [place] [address] [phone] (ABNORMAL) CBC - Complete Blood Count-No Diff [...] - 08/09/2016 2:34 PM CDT Performed at [facility], [address] [place] [address] CLIA number [id number] Roselyn Marroquin PA-C LAB_1 Performing Organization Address City/[facility] [place] [facility] Phon e Number PN SOFT [address] [place] [address] Glucose (08/09/2016 2:27 PM CDT) P athologist Signature Lab Glucose 91 60 - 100 PN SOFT mg/dL Specimen Anatomical Collection Method Collection Time Receive d Time (Source) Location / / Volume Laterality 08/09/2016 2:27 PM 6 5:08 CDT PM CDT Narrative PN SOFT - 08/09/2016 5:27 PM CDT Performed at [facility], [facility] [address] [place] [id number] CLIA number [id number] Roselyn Marroquin PA-C LAB_1 Performing Organization Address City/[facility] [place] [facility] Phon e Number PN SOFT [address] [place] [address] Lipid Panel - LDLD If Trig High [...] - 08/09/2016 5:27 PM CDT Performed at [facility], [address] [place] [address] CLIA number [id number] Roselyn Marroquin PA-C LAB_1 Performing Organization Address City/[facility] [place] [facility] Phon e Number PN SOFT [address] [place] [address] Pap Smear (08/09/2016 2:22 PM CDT) Specimen (Source) Anatomical Collection Method Collection Time Re ceived Time Location / / Volume Laterality 08/09/2016 2:22 PM CDT Narrative PN SOFT - 08/16/2016 3:49 PM CDT FINAL GYNECOLOGICAL CYTOLOGY REPORT Pathology #: [id number] ?Date Obtained: 08/09/2016 ? Date Received: 08/10/2016 INTERPRETATION/RESULTS: Atypical squamous cells of undetermined significance (ASCUS). If requested and applicable, HPV testing wi ll be performed and reported separately, per ACOG guidelines. SPECIMEN ADEQUACY: Satisfactory for Evaluation. ??Endocervi eusebio cells/transformation zone component present. Verified on 08/16/2016 ??by JOSE GRUBER MD (electronic signature) CLINICAL NOTES: ?Abnormal bleeding: No, LMP: [phone], Menstrual status: None ?Apply, Current form of [...] false-negative report s may occur. Performed at [facility], [address] [place] [address] Roselyn Marroquin PA-C LAB_1 Performing Organization Address City/State/ZIP Code Phon e Number PN SOFT [address] [place] [address] (ABNORMAL) HPV with 16 18 Genotyping (08/09/2016 2:22 PM CDT) [facility] Method Time Signature HPV High Risk Not [...] and its pe rformance characteristics determined by [facility]. It has not been cleared or approved by [facility]. The laboratory is regulated under CLIA [...] - 08/14/2016 12:22 PM CDT Performed at [address] [address] CLIA number [id number] Roselyn Marroquin PA-C LAB_1 Performing Organization Address City/[facility] [place] [facility] Phon e Number PN SOFT [address] [place] [address] Chlamydia and GC STD (08/09/2016 2:22 PM CDT) [facility] Method Time Signature Chlamydia Negative Negative PN SOFT Trachomatis STD Comment: Test Performed by Bobbin Winder Tender Mediated Amplification CLIA Number [id number] N. gonorrhoeae STD Negative Negative PN SOFT Comment: Test Performed by Bobbin W[employer] Tender Mediated Amplification Performed at [facility], [address] [place] [address] ??[address] CLIA Number [id number] Source STD Cervix PN SOFT Comment: CLIA Number [id number] Specimen Anatomical Collection Method Collection Time Receive d Time (Source) Location / / Volume Laterality 08/09/2016 2:22 PM 6 6:50 CDT PM CDT Roselyn Marroquin PA-C LAB_1 Performing Organization Address [facility] [place] [facility] Phon e Number PN SOFT [address] [place] [address] Pap Test Order (08/09/2016 2:22 PM CDT) Analysis Performed At [facility] logist Time Signature Pap Smear Collected PN SOFT Monolayer tracking test Specimen Anatomical Collection Method Collection Time Receive d Time (Source) Location / / Volume Laterality 08/09/2016 2:22 PM 6 5:34 CDT AM CDT Roselyn Marroquin PA-C LAB_1 Performing Organization Address City/[facility] [place] [facility] Phon e Number PN SOFT [address] [place] [address] Vaginitis Panel, DNA Probe (08/09/2016 2:22 PM CDT) [facility] Method Time Signature Trichomonas Not Detected Not Detected PN SOFT vaginalis Gardnerella Not Detected Not Detected PN SOFT vaginalis Alie species Not Detected Not Detected PN SOFT Specimen Anatomical Collection Method Collection Time Receive d Time (Source) Location / / Volume Laterality 08/09/2016 2:22 PM 6 8:41 CDT PM CDT Narrative PN SOFT - 08/10/2016 10:48 AM CDT Performed at [facility], [address] [place] [address] CLIA number [id number] Roselyn Marroquin PA-C LAB_1 Performing Organization Address City/[facility] [place] [facility] Phon e Number PN SOFT [address] [place] [address] UR NPT Hold for Culture (08/09/2016 1:39 PM CDT) [facility] Method Time Signature Urine Type [...] U Specific 1.020 1.005 - PN SOFT [place] 1.030 Urobilinogen Negative Negative PN SOFT Urine Eu/dL Turbidity Clear Clear PN SOFT Color Yellow PN SOFT Specimen Anatomical Collection Method Collection Time Receive d Time (Source) Location / / Volume Laterality 08/09/2016 1:39 PM 6 1:39 CDT PM CDT Narrative PN SOFT - 08/09/2016 1:45 PM CDT Performed at [facility], [address] [place] [address] CLIA number [id number] Roselyn Marroquin PA-C LAB_1 Performing Organization Address City/State/ZIP Code Phon e Number PN SOFT [address] [place] [address] documented in this encounter Visit Diagnoses Diagnosis [...] Metrorrhagia documented in this encounter Care Teams Energy Sales Broker Relationship Specialty Start Date End Date Roselyn Marroquin PA-C PCP - General Physician Rent And Housing Investigator 08/09/16 [address] [place] [address] documented as of this encounter
[2022-06-13 08:48] LABS: Glucose Fasting Check 94 mg/dl (60-115)
[2022-06-13 17:27] LABS: Glucose GTT-Gestational 3 Hr 81 mg/dl (70-140)
[2022-06-13 17:27] LABS: Glucose 1 Hour Gest 200 mg/dl (70-180)
== END 2022-06-13 08:33 | disposition home or self-care (01) ==
LOC: LKVREF 08:33
PROVIDERS: PCP Obstetrics & Gynecology; Visit Provider Advanced Practice Midwife
DX: R73.09 Other abnormal glucose (principal)
CPT/HCPCS: 82951; 82952

== ENCOUNTER 2022-06-30 14:47 | Outpatient (CLI) | payer BC, SELFPAY ==
--- OUTSIDE RECORDS SUMMARY | 2022-06-30 14:49 | XMS_ITS | Encounter Summary ---
:1985 Author Organization [facility] Address [address] [place] [address] Care Team Providers Name Role Phone Roselyn Marroquin PA-C Primary Care Provider Reason for Visit Reason Onset Date Comments Medication Questions 08/09/2016 seeking clarity on medication's directions Encounter Details Date Type Department Care Team Description 08/09/2016 Telephone [facility] Roselyn Marroquin, Medicat ion Questions Medicine STU [place] [address] [address] [facility] medication's directions [place], [place] [address] ) [address] [phone] Social History Tobacco Use Types Packs/Day Years [...] on filedocumented in this encounter Care Teams Conservation Science Officer Relationship Specialty Start Date End Date Roselyn Marroquin PA-C PCP - General Physician Nuclear Design Engineer 08/09/16 [address] [place] [address] documented as of this encounter
--- OUTSIDE RECORDS SUMMARY | 2022-06-30 14:49 | XMS_ITS | Encounter Summary ---
:1985 Author Organization [facility] Address [address], [place] [address] Care Team Providers Name Role Phone Needs Pcp, Assignment Primary Care Provider Reason for Visit Reason Comments Cough Vaginal Discharge Encounter Details Date Type Department Care Team Description 02/18/2016 Hospital Encounter [facility] Awilda Trivedi, Acute vaginitis; Care MD Viral URI; [address] [address] [place] [address] Urinary tract infection, site unspecifie d; Drive [place], [place] BV (bacterial vaginosis) [place] [address] [phone] Social History Tobacco Use Types Packs/Day Years [...] continues to smoke 1/2 PPD, is using [employer]'s dimetapp and it helps. 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 She has had no fevers with [...] components within normal limits Narrative: Performed at [facility], [address] [place] [address] CLIA number [id number] LAB WET PREP - Abnormal; Notable for the following: WETPR Clue Cells Moderate (*) All other components within normal limits Narrative: Performed at [facility], [address] [place] [address] CLIA number [id number] LAB URINE MICROSCOPIC - Abnormal; Notable for the following: Bacteria Urine Moderate (*) All other components within normal limits Narrative: Performed at [facility], [address] [place] [address] CLIA number [id number] X-Rays: Xr Chest * Pa And Left [...] Where can you learn more? Go to [employer] and enter X360 in the search box. Current as of: April 22, 2015 Content Version: 108 ?? [phone] [employer], [email or web address]. Upper Respiratory Infection (Cold): Care Instructions Your [...] include drinking lots of fluids and taking abgz-eql-ttnxyab pain medicine. You will probably feel better [...] of fluids you drink. ?? Take an jkye-amc-qvbodsy pain medicine, such as acetaminophen (Tylenol), ibuprofen (Advil, Motrin), or naproxen (Aleve). Read and follow all instructions on the label. ?? Before you use cough and cold medicines, check the label. These medicines may not be safe for young children or for people with certain health problems. ?? Be careful when taking hgqv-oqx-jikfrpy cold or flu medicines and Tylenol at [...] Where can you learn more? Go to [employer] and enter K520 in the search box. Current as of: June 11, 2015 Content Version: 108 ?? [phone] [employer], [email or web address]. RTC p.r.n. documented in this encounter Miscellaneous [...] from the original note were not included. [facility] [address] [place] [facility] [address] Dept: [phone] [email or web address] Betty Tai 02/18/2016 2:51 PM UC Description: Female : 1985 Department: [facility] Dept Thank you for choosing [facility] for your health care visit with Awilda Trivedi MD.We are happy to care for you and provide this summary of your visit. Your primary med care manager is currently listed as Assignment Needs PCP. HERE IS WHAT YOU NEED TO KNOW To learn how you can take steps to stay as healthy as you can be visit [email or web address] Discharge Instructions Bacterial Vaginosis: Care Instructions Your [...] Where can you learn more? Go to [employer] and enter X360 in the search box. Current as of: April 22, 2015 Content Version: 108 ?? [phone] [employer], [facility]. Upper Respiratory Infection (Cold): Care Instructions Your [...] include drinking lots of fluids and taking tkqk-cfv-rbsimgb pain medicine.You will probably feel better in [...] of fluids you drink. ?? Take an ogjk-xjp-gdonizh pain medicine, such as acetaminophen (Tylenol), ibuprofen (Advil, Motrin), or naproxen (Aleve). Read and follow all instructions on the label. ?? Before you use cough and cold medicines, check the label. These medicines may not be safe for young children or for people with certain health problems. ?? Be careful when taking itao-pie-gpoulxg cold or flu medicines and Tylenol at [...] Where can you learn more? Go to [employer] and enter K520 in the search box. Current as of: June 11, 2015 Content Version: 108 ?? [phone] [employer]. HERE IS WHAT YOU NEED TO DO Call your clinic if: You develop new symptoms Your symptoms worsen unexpectedly You are not improving as expected You have questions about your visit or medications Your to do list Future Orders Complete By Ordering Dept. PHYSICAL THERAPY CONSULT ADULT/PEDS ([place]) As directed [facility] Scheduling Instructions: Your provider has recommended an appointment with [facility]. You may call [phone] to schedule your appointment. If you prefer, a general dentist/owner will contact you within the next 3 [...] Negative Neg - Trace mg/dL U Specific [place] 1.015 1.005 - 1.030 Urobilinogen Urine Negative [...] Ethnicity Preferred Language 1985 Female White Non- Burmese This document contains confidential information about your [...] (ABNORMAL) URINE MICROSCOPIC (02/18/2016 3:40 PM CDT) [facility] [employer] Method Time Signature Urine WBC 0-2 0 [...] - 02/18/2016 4:04 PM CDT Performed at [facility], [address] [place] [address] CLIA number [id number] Awilda Trivedi MD LAB_1 Performing Organization Address City/State/ZIP Code Phon e Number HP CONVERSION (ABNORMAL) WET PREP (02/18/2016 3:40 PM CDT) [facility] [employer] Method Time Signature WETPR White Moderate None [...] - 02/18/2016 3:51 PM CDT Performed at [facility], [facility] [address] [place] [address] CLIA number [id number] Awilda Trivedi MD LAB_1 Performing Organization Address [facility] Phon e Number HP CONVERSION (ABNORMAL) URINALYSIS ROUTINE(MICRO IF POS) (02/18/2016 3:40 PM CDT) [facility] Method Time Signature Urine Type Urine:clean [...] U Specific 1.015 1.005 - HP CONVERSION [place] 1.030 Urobilinogen Negative Negative HP CONVERSION Urine Eu/dL Specimen Anatomical Collection Method Collection Time Receive d Time (Source) Location / / Volume Laterality Urine: 02/18/2016 3:40 PM 6 3:46 CDT PM CDT Narrative HP CONVERSION - 02/18/2016 4:04 PM CDT Performed at [facility], [facility] [address] [place] [address] CLIA number [id number] Awilda Trivedi MD LAB_1 Performing Organization Address [facility] Phon e Number HP CONVERSION documented in [...] is more due to the coughing. E INSPECTOR documented in this encounter Care Teams Offset Second Press Operator Relationship Specialty Start Date End Date Needs Pcp, Assignment PCP - General 02/18/16 08/08/16 [place] [address] documented as of this encounter
--- OUTSIDE RECORDS SUMMARY | 2022-06-30 14:49 | XMS_ITS | Encounter Summary ---
:1985 Author Organization [facility] Address [address] [place] [address] Care Team Providers Name Role Phone Roselyn Marroquin PA-C Primary Care Provider Encounter Details Date Type Department Care Team Description 09/26/2019 Lab Visit [facility] Dysuria; [address] Hematuria, [place] [address] Social History Tobacco Use [...] 09/26/2019 3:48 PM Dysuria Results for this PATTERN REPAIR PERSON Hematuria, procedure are i n microscopic the results section. AUTOMATED URINALYSIS Routine 09/26/2019 3:48 PM Dysuria R esults for this DIPSTICK POCT PATTERN REPAIR PERSON procedure are in the results section. documented in this encounter Results (ABNORMAL) Urine Culture (09/26/2019 3:48 PM PATTERN REPAIR PERSON) Component Value Ref Test Method Analysis Performed Patholog ist Range Time At Signature Urine Growth (A) 09/28/2019 [facility] Culture 10:34 AM HOSPITAL PATTERN REPAIR PERSON Urine 10,000 - 50,000 GIANLUCA 09/28/2019 [facility] Culture CFU/mL SENSITIVITY 10:34 AM [facility] Staphylococcus PATTERN REPAIR PERSON saprophyticus Specimen Anatomical Collection Method Collection Time Receive d Time (Source) Location / / Volume Laterality Urine URINE SPECIMEN Non-blood 09/26/2019 3:48 PM 019 3:48 COLLECTION, CLEAN Collection / PATTERN REPAIR PERSON PM PATTERN REPAIR PERSON CATCH / Unknown Unknown [facility] - 09/28/2019 10:[address] Routine testing of urine isolates of Sta phylococcus saprophyticus is not advised, because infections respond to concentrat ions achieved in urine of antimicrobial agents commonly used to treat acute, unc omplicated UTIs (eg, nitrofurantoin, trimethoprim ?? sulfamethoxazole, or a f luoroquinolone). Percy Gutierrez PA-C LAB_1 Performing Organization Address City/State/ZIP Code Phon e Number [address] [address] (ABNORMAL) Urine Dipstick NPT (09/26/2019 3:48 PM PATTERN REPAIR PERSON) [facility] gist Method Time Signature Glucose Urine Negative Negative 09/26/2019 [facility] Qual (mg/dL) 3:55 PM PATTERN REPAIR PERSON Bilirubin Negative Negative 09/26/2019 [facility] Urine 3:55 PM PATTERN REPAIR PERSON Ketones, Negative Negative 09/26/2019 [facility] Urine (mg/dL) 3:55 PM PATTERN REPAIR PERSON Specific 1.015 1.005 - 09/26/2019 [facility] [place], 1.030 3:55 PM PATTERN REPAIR PERSON Urine Blood, Urine Trace Neg/Trace 09/26/2019 [facility] 3:55 PM PATTERN REPAIR PERSON PH Urine 7.0 5.0 - 8.0 09/26/2019 [facility] 3:55 PM PATTERN REPAIR PERSON Protein, Trace Neg/Trace 09/26/2019 [facility] Urine Qual 3:55 PM PATTERN REPAIR PERSON (mg/dL) Urobilinogen, 0.2 <2.0 09/26/2019 [facility] Urine (EU/dL) 3:55 PM PATTERN REPAIR PERSON Nitrite Urine Negative Negative 09/26/2019 [facility] 3:55 PM PATTERN REPAIR PERSON Leukocyte Large (A) Negative 09/26/2019 [facility] Est. 3:55 PM PATTERN REPAIR PERSON Urine Color Yellow Straw-Yellow 09/26/2019 [facility] 3:55 PM PATTERN REPAIR PERSON Urine Clarity Hazy (A) Clear 09/26/2019 [facility] 3:55 PM PATTERN REPAIR PERSON Specimen Anatomical Collection Method Collection Time Receive d Time (Source) Location / / Volume Laterality Urine URINE SPECIMEN Non-blood 09/26/2019 3:48 PM 019 3:48 COLLECTION, CLEAN Collection / PATTERN REPAIR PERSON PM PATTERN REPAIR PERSON CATCH / Unknown Unknown Percy Gutierrez PA-C LAB_1 Performing Organization Address City/State/ZIP Code Phon e Number [facility] [address] [place] [phone] [facility] [address] [place] [address] [address] [phone] documented in this encounter Visit Diagnoses Diagnosis Dysuria Hematuria, microscopic Microscopic hematuria documented in this encounter Care Teams Director Of Family Service Center Relationship Specialty Start Date End Date Roselyn Marroquin PA-C PCP - General Physician Investigation Clerk 08/09/16 [address] [place] [address] documented as of this encounter
--- OUTSIDE RECORDS SUMMARY | 2022-06-30 14:49 | XMS_ITS | Encounter Summary ---
:1985 Author Organization [facility] Address [address] [place] [address] Care Team Providers Name Role Phone Roselyn Marroquin PA-C Primary Care Provider Reason for Referral Consult/Transfer Care (Routine) - Closed Specialty Diagnoses / Procedures Referred By Contact Refer red To Contact Diagnoses Dysmenorrhea Metrorrhagia Roselyn Marroquin PA-C [address] [place] [address] Referral ID Status Reason Start Date Expiration Date Visits Requ ested Visits Authorized [id number] Closed 08/09/2016 11/08/2017 1 1 Scheduling Instructions Your provider has recommended an appoint ment with [facility]. You may call [phone] to schedule your appointment. If you do [...] Department Care Team Description 08/09/2016 Office Visit [facility] Roselyn Marroquin, Annual physical exam (Primary Dx); Medicine STU Vaginal discharge; [address] [address] [facility] Urinary frequency; [place], [place] Encounter for screening for lipoid disorders; [phone] Screening for diabetes mellitus; [phone] Dysmenorrhea; (Work) Metrorrhagia; Encounter for smoking cessation [...] help with mood and energy. 5) Call GEL COAT SPRAYER at number below to schedule to discuss [...] CBC. Discussed Mirena IUD, will send to ultrasound technologist sonographer. Currently isn't doing any control. Is OK [...] pilates 3x per week. 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 Supplements: None. 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 LMP: Patient's last menstrual period was 07/17/2016 (exact date). Pap hx: Does patient have history of abnormal pap smear? yes. Years ago. Past Medical, Family, Surgical and Social History, Drug allergies and Medications have been reviewedand updated in nubelo today. Review of Systems: The remainder of [...] external genitalia and urethra, without lesions noted. [place], moist vaginal and cervical mucosa, without lesions, [...] T4 (FRT4 If TSH Abnorm); Future - Ob-[place] Layup Line Back Feeder Consult Metrorrhagia - CBC - Complete Blood Count-No Diff; Future - TSH And Free T4 (FRT4 If TSH Abnorm); Future - Ob-[place] Layup Line Back Feeder Consult Encounter for smoking cessation counseling (HRC) [...] help with mood and energy. 5) Call GEL COAT SPRAYER at number below to schedule to discuss Mirena IUD to help decrease the bleeding and cramping with your periods. 6) I'll notify you of your labs. Thanks, Roselyn Marroquin, PAC. documented in this encounter Plan of Treatment Scheduled Referrals Name Type Priority Associated Diagnoses Order S chedule Ob-[place] Layup Line Back Feeder Consult Referral Routine Dysmenorrhea Ordered: 08/09/2016 Metrorrhagia [...] - 08/09/2016 11:28 PM CDT Performed at [facility], [address] [place] [address] CLIA number [id number] Roselyn Marroquin PA-C LAB_1 Performing Organization Address City/[facility] Phon e Number PN SOFT [address] [place] [address] [phone] (ABNORMAL) CBC - Complete Blood Count-No Diff [...] - 08/09/2016 2:34 PM CDT Performed at [facility], [address] [place] [address] CLIA number [id number] Roselyn Marroquin PA-C LAB_1 Performing Organization Address City/[facility] Phon e Number PN SOFT [address] [place] [address] Glucose (08/09/2016 2:27 PM CDT) P athologist Signature Lab Glucose 91 60 - 100 PN SOFT mg/dL Specimen Anatomical Collection Method Collection Time Receive d Time (Source) Location / / Volume Laterality 08/09/2016 2:27 PM 6 5:08 CDT PM CDT Narrative PN SOFT - 08/09/2016 5:27 PM CDT Performed at [facility], [facility] [address] [id number] CLIA number [id number] Roselyn Marroquin PA-C LAB_1 Performing Organization Address City/[facility] Phon e Number PN SOFT [address] [place] [address] Lipid Panel - LDLD If Trig High [...] - 08/09/2016 5:27 PM CDT Performed at [facility], [address] [place] [address] CLIA number [id number] Roselyn Marroquin PA-C LAB_1 Performing Organization Address City/[facility] Phon e Number PN SOFT [address] [place] [address] Pap Smear (08/09/2016 2:22 PM CDT) Specimen (Source) Anatomical Collection Method Collection Time Re ceived Time Location / / Volume Laterality 08/09/2016 2:22 PM CDT Narrative PN SOFT - 08/16/2016 3:49 PM CDT FINAL GYNECOLOGICAL CYTOLOGY REPORT Pathology #: [id number] ?Date Obtained: 08/09/2016 ? Date Received: 08/10/2016 INTERPRETATION/RESULTS: Atypical squamous cells of undetermined significance (ASCUS). If requested and applicable, HPV testing wi ll be performed and reported separately, per ACOG guidelines. SPECIMEN ADEQUACY: Satisfactory for Evaluation. ??Endocervi eusebio cells/transformation zone component present. Verified on 08/16/2016 ??by JOSE GRUBER MD (electronic signature) CLINICAL NOTES: ?Abnormal bleeding: No, LMP: [phone], Menstrual status: None ?Apply, Current form of [...] false-negative report s may occur. Performed at [facility], [address] [place] [address] Roselyn Marroquin PA-C LAB_1 Performing Organization Address City/State/ZIP Code Phon e Number PN SOFT [address] [place] [address] (ABNORMAL) HPV with 16 18 Genotyping (08/09/2016 2:22 PM CDT) [facility] Method Time Signature HPV High Risk [...] and its pe rformance characteristics determined by [facility]. It has not been cleared or approved by [facility]. The laboratory is regulated under CLIA as qualified to perform high-complexity testing. This test is used for clinical purposes. It should not be regarded as investigational or fo r research. Specimen Anatomical Collection Method Collection Time Receive d Time (Source) Location / / Volume Laterality 08/09/2016 2:22 PM 6 2:22 CDT PM CDT Narrative PN SOFT - 08/14/2016 12:22 PM CDT Performed at [address] [address] CLIA number [id number] Roselyn Marroquin PA-C LAB_1 Performing Organization Address City/[facility] Phon e Number PN SOFT [address] [place] [address] Chlamydia and GC STD (08/09/2016 2:22 PM CDT) [facility] Method Time Signature Chlamydia Negative Negative PN SOFT Trachomatis STD Comment: Test Performed by Business Intelligence Director Mediated Amplification CLIA Number [id number] N. gonorrhoeae STD Negative Negative PN SOFT Comment: Test Performed by Business Intelligence Director Mediated Amplification Performed at [facility], [address] [place] [address] CLIA Number [id number] Source STD Cervix PN SOFT Comment: CLIA Number [id number] Specimen Anatomical Collection Method Collection Time Receive d Time (Source) Location / / Volume Laterality 08/09/2016 2:22 PM 6 6:50 CDT PM CDT Roselyn Marroquin PA-C LAB_1 Performing Organization Address [facility] Phon e Number PN SOFT [address] [place] [address] Pap Test Order (08/09/2016 2:22 PM CDT) Analysis Performed At [facility] logist Time Signature Pap Smear Collected PN SOFT Monolayer tracking test Specimen Anatomical Collection Method Collection Time Receive d Time (Source) Location / / Volume Laterality 08/09/2016 2:22 PM 6 5:34 CDT AM CDT Roselyn Marroquin PA-C LAB_1 Performing Organization Address City/[facility] Phon e Number PN SOFT [address] [place] [address] Vaginitis Panel, DNA Probe (08/09/2016 2:22 PM CDT) [facility] Method Time Signature Trichomonas Not Detected Not Detected PN SOFT vaginalis Gardnerella Not Detected Not Detected PN SOFT vaginalis Alie species Not Detected Not Detected PN SOFT Specimen Anatomical Collection Method Collection Time Receive d Time (Source) Location / / Volume Laterality 08/09/2016 2:22 PM 6 8:41 CDT PM CDT Narrative PN SOFT - 08/10/2016 10:48 AM CDT Performed at [facility], [address] [place] [address] CLIA number [id number] Roselyn Marroquin PA-C LAB_1 Performing Organization Address City/[facility] Phon e Number PN SOFT [address] [place] [address] UR NPT Hold for Culture (08/09/2016 1:39 PM CDT) [facility] Method Time Signature Urine Type URINE:clean [...] U Specific 1.020 1.005 - PN SOFT [place] 1.030 Urobilinogen Negative Negative PN SOFT Urine Eu/dL Turbidity Clear Clear PN SOFT Color Yellow PN SOFT Specimen Anatomical Collection Method Collection Time Receive d Time (Source) Location / / Volume Laterality 08/09/2016 1:39 PM 6 1:39 CDT PM CDT Narrative PN SOFT - 08/09/2016 1:45 PM CDT Performed at [facility], [address] [place] [address] CLIA number [id number] Roselyn Marroquin PA-C LAB_1 Performing Organization Address City/State/ZIP Code Phon e Number PN SOFT [address] [place] [address] documented in this encounter Visit Diagnoses Diagnosis [...] Metrorrhagia documented in this encounter Care Teams Statistical Programmer Analyst Relationship Specialty Start Date End Date Roselyn Marroquin PA-C PCP - General Physician Fiberglass Insulation Installer 08/09/16 [address] [place] [address] documented as of this encounter
--- OUTSIDE RECORDS SUMMARY | 2022-06-30 14:49 | XMS_ITS | Encounter Summary ---
:1985 Author Organization [facility] Address [address], [place] [address] Care Team Providers Name Role Phone Lopez Roselyn Lynn PA-C Primary Care Provider Reason for Visit Procedure/Equipment (Routine) - Incomplete Specialty Diagnoses / Procedures Referred By Contact Refer red To Contact Diagnoses Acute left ankle pain Aung Saeed PA-C Procedures XR Foot 3+ Views/Ankle 2 Views Series Lt [address] [place] [address] Referral ID Status Reason Start Date Expiration Date Visits V isits Requested Authorized [id number] Incomplete 05/29/2018 08/28/2019 1 1 Encounter Details Date Type Department Care Team Description 05/29/2018 Imaging [facility] [address] [place] [address] Social History Tobacco Use Types [...] on filedocumented in this encounter Care Teams Solid Waste Facility Supervisor Relationship Specialty Start Date End Date Roselyn Marroquin PA-C PCP - General Physician Stock Handler 08/09/16 [address] [place] [address] documented as of this encounter
--- OUTSIDE RECORDS SUMMARY | 2022-06-30 14:49 | XMS_ITS | Encounter Summary ---
:1985 Author Organization [facility] Address [address], [place] [address] Care Team Providers Name Role Phone LopezRoselyn Shane PERAZA Primary Care Provider Reason for Visit Reason Comments Dental Conversion Legacy EDR to [place] convers ion Encounter Details Date Type Department Care Team Description 03/29/2017 Dental Conversion [facility] Fatmata Sánchez, [facility] [address] [facility] [address] [place], [place] [address] [place], [place] [phone] [address] Social History Tobacco Use Types Packs/Day Years [...] on filedocumented in this encounter Care Teams Order Checker Packer Processer Relationship Specialty Start Date End Date Roselyn Marroquin PA-C PCP - General Physician Bartacker 08/09/16 [address] [place] [address] documented as of this encounter
--- OUTSIDE RECORDS SUMMARY | 2022-06-30 14:49 | XMS_ITS | Encounter Summary ---
:1985 Author Organization [facility] Address [address], [place] [address] Care Team Providers Name Role Phone Roselyn Marroquin PA-C Primary Care Provider Reason for Visit Reason Comments COLPOSCOPY Encounter Details Date Type Department Care Team Description 09/05/2016 Procedure Visit [facility] Igor Stevenson COLPOSCOPY Services-ANIMAL CHIROPRACTOR MD Tucker [address] [place] [address], [address] [place] [address] [address] [place] [address] [place], [place] [phone] (Wo rk) [address] [phone] Social History Tobacco Use Types Packs/Day Years [...] Notes Igor Stevenson - 09/05/2016 2:20 PM CAR BODY INSPECTOR Addended by: IGOR STEVENSON on: 09/05/2016 02:20 PM Modules accepted: Orders BODY INSPECTOR Igor Stevenson - 09/05/2016 1:38 PM CST [...] findings. Post biopsy instructions given to patient. BODY INSPECTOR Igor Stevenson - 09/05/2016 1:35 PM CAR BODY INSPECTOR Quick Note: Patient notified BODY INSPECTOR documented in this encounter Plan of Treatment Not on filedocumented as of this encounter Procedures Procedure Name Priority Date/Time Associated Comments Diagnosis CLINIC OBTAINED Routine 09/05/2016 2:33 PM ASCUS with positive Results for this ANATOMICAL PATHOLOGY CAR BODY INSPECTOR high risk HPV proced ure are in cervical the results section. SURGICAL BONY [place] Routine 09/05/2016 2:33 PM Re sults for this [place] CAR BODY INSPECTOR procedure are i n the results section. POCT URINE Routine 09/05/2016 1:15 PM Encounter for Results for this CAR BODY INSPECTOR test, procedure ar e in result unknown the results section. documented in this encounter Results Pathology Report (09/05/2016 2:33 PM CAR BODY INSPECTOR) Specimen (Source) Anatomical Collection Method Collection Time Re ceived Time Location / / Volume Laterality 09/05/2016 2:33 PM CAR BODY INSPECTOR Narrative PN SOFT - 09/07/2016 10:36 AM CAR BODY INSPECTOR FINAL SURGICAL PATHOLOGY REPORT Pathology #: [id number] ? Date Obtained: 09/05/2016 ?Date Received: 09/06/2016 [...] MICROSCOPIC DESCRIPTION: Microscopic examination performed Performed at [place] [address] [place] [address] Igor Stevenson MD LAB_1 Performing Organization Address [facility] Phon e Number PN SOFT [address] [place] [address] Clinic Obtained Tissue [TIS] (09/05/2016 2:33 PM CAR BODY INSPECTOR) P athologist Signature CLINIC Received PN SOFT OBTAINED TISSUE Specimen Anatomical Collection Method Collection Time Receive d Time (Source) Location / / Volume Laterality 09/05/2016 2:33 PM 6 2:32 CAR BODY INSPECTOR AM CAR BODY INSPECTOR Narrative PN SOFT - 09/06/2016 2:33 AM CAR BODY INSPECTOR Performed at [facility], [address] [place] [address] CLIA number [id number] Igor Stevenson MD LAB_1 Performing Organization Address City/[facility] Phon e Number PN SOFT [address] [place] [address] [phone] POCT urine (09/05/2016 1:15 PM CAR BODY INSPECTOR) [facility] gist Method Time Signature Urine Negative PN EXTERNAL Test - POC LAB-SEE SCANNED DOCUMENT Control Line Yes PN EXTERNAL Present, Clear LAB-SEE Background - SCANNED Internal DOCUMENT control Cartridge Lot# [id number] PN EXTERNAL LAB-SEE SCANNED DOCUMENT Comment: exp: Specimen (Source) Anatomical Collection Method Collection Time Re ceived Time Location / / Volume Laterality Urine specimen 09/05/2016 1:15 PM (specimen) CAR BODY INSPECTOR Igor Stevenson MD PN POINT OF CARE TESTS Performing Organization Address City/State/ZIP Code Phon e Number PN EXTERNAL LAB-SEE SCANNED DOCUMENT documented in this encounter Visit Diagnoses Diagnosis ASCUS with positive high risk HPV cervic al - Primary Encounter for test, result unk nown documented in this encounter Care Teams Public Improvement Inspector Relationship Specialty Start Date End Date Roselyn Marroquin PA-C PCP - General Physician Patient Escort 08/09/16 [address] [place] [address] documented as of this encounter
--- OUTSIDE RECORDS SUMMARY | 2022-06-30 14:49 | XMS_ITS | Encounter Summary ---
:1985 Author Organization [facility] Address [address] [place] [address] Care Team Providers Name Role Phone Unassigned, Provider Primary Care Provider Unavailable Reason for Visit Reason Comments Back Pain Encounter Details Date Type Department Care Team Description 09/07/2015 Office Visit [facility] Juaquin Corona Bilater al low back Medicine MD pain, with sciatica [address] presence unspecified [place], [place] (Primary Dx) [address] [phone] Social History Tobacco Use Types Packs/Day Years Used Date Smoking Tobacco: Never Assessed Sex Assigned at Date Recorded Not on file documented as of this encounter Last Filed Vital Signs Vital Sign Reading Time Taken Comments Blood Pressure 108/68 09/07/2015 10:23 AM ELEMENTARY SCHOOL TUTOR Pulse 80 09/07/2015 10:23 AM ELEMENTARY SCHOOL TUTOR Temperature - - Respiratory Rate - - Oxygen Saturation - - Inhaled Oxygen Concentration - - Weight 52.4 kg (115 lb 8 oz) 09/07/2015 10:23 AM ELEMENTARY SCHOOL TUTOR Height 167.6 cm (5' 6) 09/07/2015 10:23 AM ELEMENTARY SCHOOL TUTOR Body Mass Index 18.64 09/07/2015 10:23 AM ELEMENTARY SCHOOL TUTOR documented in this encounter Progress Notes Juaquin [...] Past Surgical History Procedure Laterality Date ??? [place] tooth extraction ??? Pleural scarification chest tube [...] pap. Juaquin Corona MD 10:48 AM 09/07/2015 ENTARY SCHOOL TUTOR documented in this encounter Plan of Treatment Not on filedocumented as of this encounter Visit Diagnoses Diagnosis Bilateral low back pain, with sciatica p resence unspecified (HRC) - Primary documented in this encounter Care Teams Junior Mechanical Engineer Relationship Specialty Start Date End Date Unassigned, Provider PCP - General 12/01/00 02/17/[address] [place] [address] documented as of this encounter
--- OUTSIDE RECORDS SUMMARY | 2022-06-30 14:49 | XMS_ITS | Clinical Summary ---
:1985 Author Organization [facility] Address [address] [place] [address] Care Team Providers Name Role Phone Roselyn [...] for each transition of care or referral. [employer] Allergies No known active allergies Medications Medication [...] Abnormal Pap smear of cervix 12/18/2017 Overview: [facility] Review: History: 2016: ASCUS HPV+ (non [...] (ActHIB) 08/21/1986 Influenza IIV4 (Quadrivalent) 0.5mL 08/25/2020 (66207) MMR 03/02/1986 OPV, Trivalent (Orimune or tOPV) [...] Comments Blood Pressure 122/82 09/26/2019 3:41 PM WRINGER OPERATOR Pulse 88 09/26/2019 3:41 PM WRINGER OPERATOR Temperature 36.8 ??C (98.2 ??F) 09/26/2019 3:41 PM WRINGER OPERATOR Respiratory Rate 16 09/26/2019 3:41 PM WRINGER OPERATOR Oxygen Saturation 98% 08/28/2018 4:49 PM WRINGER OPERATOR Inhaled Oxygen Concentration - - Weight 52.6 kg (116 lb) 09/26/2019 3:41 PM WRINGER OPERATOR Height 170.2 cm (5' 7) 09/26/2019 3:41 PM WRINGER OPERATOR Body Mass Index 18.17 09/26/2019 3:41 PM WRINGER OPERATOR Plan of Treatment Health Maintenance Due Date [...] e / Group Dates BCBS BCBS PMAP [id number] 2020-Pres [address] icaid BLUE ent [id number] AD[address] [place] [id number] [facility] PMAP [id number] 2018-Pre Medicaid DENTAL PLAN ADULT DENTAL sent [phone] [id number] (Home) [phone] [address] 6 (Work) [address] Betty Tai Personal/Famil Self 1985 [phone] (Home) [place], [place] [phone] 6 (Work) Betty Tai Personal/Famil Self 1985 [phone] (Home) [place] [address] [place]SEY Personal/Famil Self 06/26/1956 [phone] (Home) [place] [address] Care Teams Ballet Soloist Relationship Specialty Start Date End Date Roselyn Marroquin PA-C PCP - General Physician Circulation Manager 08/09/16 [address] [place] [address]
--- OUTSIDE RECORDS SUMMARY | 2022-06-30 14:49 | XMS_ITS | Encounter Summary ---
:1985 Author Organization [employer] Address [address] [address] Care Team Providers Name Role Phone LopezVinnyRoselyndonald Lynn PA-C Primary Care Provider Reason for Visit Reason Comments Procedure colposcopy Encounter Details Date Type Department Care Team Description 12/25/2017 Procedure Visit [facility] Igor Kaufman Procedure Services-ADVERTISING SALES CONSULTANT MD Tucker (colposcopy) [address], [address] [place] [address] [place], [place] [phone] (Wo rk) [address] [phone] Social History Tobacco Use Types Packs/Day Years [...] Patient notified. Pap/HPV advised in 1 year BODY SERVICE MECHANIC Igor Kaufman - 12/25/2017 1:00 PM CST [...] Post biopsy instructions given to patient. BODY SERVICE MECHANIC documented in this encounter Plan of Treatment Not on filedocumented as of this encounter Procedures Procedure Name Priority Date/Time Associated Comments Diagnosis CLINIC OBTAINED Routine 12/25/2017 1:27 PM Pap smear of cervix Results for this ANATOMICAL PATHOLOGY AUTO BODY SERVICE MECHANIC with ASCUS, cannot p rocedure are in exclude HGSIL the results section. SURGICAL PATH, [place] Routine 12/25/2017 6:00 AM Re sults for this [facility] AUTO BODY SERVICE MECHANIC procedure are i n the results section. documented in this encounter Results Clinic Obtained Tissue [TIS] (12/25/2017 1:27 PM AUTO BODY SERVICE MECHANIC) athologist Signature CLINIC Received PN SOFT OBTAINED TISSUE Specimen Anatomical Collection Method Collection Time Receive d Time (Source) Location / / Volume Laterality 12/25/2017 1:27 PM 8 6:26 AUTO BODY SERVICE MECHANIC PM AUTO BODY SERVICE MECHANIC Narrative PN SOFT - 12/25/2017 6:52 PM AUTO BODY SERVICE MECHANIC Performed at [facility], [address] [place] [address] CLIA number [id number] Igor Kaufman MD LAB_1 Performing Organization Address City/State/ZIP Code Phon e Number PN SOFT [address] [place] [address] Pathology Report (12/25/2017 6:00 AM AUTO BODY SERVICE MECHANIC) [facility] gist Method Time Signature Path: FINAL SURGICAL PATHOLOGY REPORT PN SOFT Pathology #: [id number] ? Date Obtained: 12/25/2017 ?Date Received: 12/25/2017 [...] microscopic examination has been performed. Performed at [facility], [address] [facility], [place] [address] Specimen Anatomical Collection Method Collection Time Receive d Time (Source) Location / / Volume Laterality OTHER / Unknown 12/25/2017 6:00 AM 2017 6:00 AUTO BODY SERVICE MECHANIC AM AUTO BODY SERVICE MECHANIC Igor Kaufman MD LAB_1 Performing Organization Address City/State/ZIP Code Phon e Number PN SOFT [address] [place] [address] documented in this encounter Visit Diagnoses Diagnosis Pap smear of cervix with ASCUS, cannot e xclude HGSIL - Primary Papanicolaou smear of cervix with atypic al squamous cells cannot exclude high grade squamous intraepithelial lesion (ASC-H) documented in this encounter Care Teams Clinical Coder Relationship Specialty Start Date End Date Roselyn Marroquin PA-C PCP - General Physician Customer Relations Coordinator 08/09/16 [address] [place] [address] documented as of this encounter
--- OUTSIDE RECORDS SUMMARY | 2022-06-30 14:49 | XMS_ITS | Encounter Summary ---
:1985 Author Organization [facility] Address [address] [place] [address] Care Team Providers Name Role Phone Roselyn Marroquin PARavinderC Primary Care Provider Reason for Visit Reason Comments Pharyngitis Encounter Details Date Type Department Care Team Description 11/15/2017 Hospital Encounter [facility] re Brenda Mancia, Sore throat; [address] PAEarnestine Viral illness [place], [place] [phone] [address] [facility] [phone] [place], [place] [address] (Wo rk) Social History Tobacco Use Types [...] Comments Blood Pressure 109/74 11/15/2017 12:27 PM AMBULATORY CARE Pulse 86 11/15/2017 12:27 PM AMBULATORY CARE Temperature 36.7 ??C (98.1 ??F) 11/15/2017 12:27 PM AMBULATORY CARE Respiratory Rate 16 11/15/2017 12:27 PM AMBULATORY CARE Oxygen Saturation 97% 11/15/2017 12:27 PM AMBULATORY CARE Inhaled Oxygen Concentration - - Weight - - Height - - Body Mass Index - - documented in this encounter Discharge Instructions AttachmentsThe following attachments cannot be sent through Care Everywhere. INFLUENZA (PASHTO)documented in this encounter Medications at Time [...] in 2000 ??? Metrorrhagia ??? Tobacco abuse ([place]) 01/04/2015 OBJECTIVE: Vital Signs: BP 109/74 Pulse [...] STREP GROUP A WAIVED Narrative: Performed at [facility], [address] [place] [address] CLIA number [id number] BETA STREP RESP CULT Narrative: Performed at [facility], [address] [place] [address], CLIA Number [id number] Orders Placed This Encounter ??? Rapid Strep [...] recognition software and may contain typographic errors. LATORY CARE documented in this encounter Plan of Treatment Not on filedocumented as of this encounter Procedures Procedure Name Priority Date/Time Associated Diagnosis Comme nts BETA STREP RESP STAT 11/15/2017 12:40 PM Sore throat Resul ts for this CULT AMBULATORY CARE procedure are i n the results section. GROUP A STREP STAT 11/15/2017 12:29 PM Sore throat Results for this ANTIGEN SCREEN AMBULATORY CARE procedure are in the results section. documented in this encounter Results Strep Screen Culture Throat (CSS) (11/15/2017 12:40 PM AMBULATORY CARE) [facility] gist Method Time Signature Source Throat PN SOFT Site PN SOFT Strep Screen No Group A 11/17/2017 PN SOFT Streptococcus 7:18 AM AMBULATORY CARE Isolated Specimen (Source) Anatomical Collection Method Collection Time Re ceived Time Location / / Volume Laterality Throat: 11/15/2017 12:40 PM AMBULATORY CARE Narrative PN SOFT - 11/17/2017 7:18 AM AMBULATORY CARE Performed at [facility], [address] [place] [address], CLIA Number [id number] Ace PATEL LAB_1 Performing Organization Address City/State/ZIP Code Phon e Number PN SOFT [address] [place] [address] [phone] Rapid Strep Group A Waived (RSAW) (11/15/2017 12:29 PM AMBULATORY CARE) athologist Signature Strep A Negative Negative PN SOFT Antigen Strep A Source THROA: PN SOFT Specimen Anatomical Collection Method Collection Time Receive d Time (Source) Location / / Volume Laterality 11/15/2017 12:29 11/15/2017 1:33 PM AMBULATORY CARE PM AMBULATORY CARE Narrative PN SOFT - 11/15/2017 1:35 PM AMBULATORY CARE Performed at [facility], [address] [facility], [place] [address] CLIA number [id number] Ace Joseph AMANDA LAB_1 Performing Organization Address City/State/ZIP Code Dieter deras Number PN SOFT [address] [place] [address] [phone] documented in this encounter Visit Diagnoses Diagnosis Sore throat Acute pharyngitis Viral illness Unspecified viral infection, in conditio ns classified elsewhere and of unspecified site Triage Assessment Note - Alona Matos RN - 11/15/2017 12:25 PM AMBULATORY CARE Patient is an established patient according to [facility] policy and definition? Yes: SORE THROAT: [...] hasextended contact (i.e., day care worker or high school foreign language tutor) with a person who had strep within the last 10 days. OBJECTIVE Objective exam of patient indicates red throat. Phone number: Telephone Information: Work Phone Not on file. ASSESSMENT Sore throat. Alona Matos RN LATORY CARE documented in this encounter Care Teams Slunk Skinner Relationship Specialty Start Date End Date Roselyn Marroquin PA-C PCP - General Physician Records Associate 08/09/16 [address] [place] [address] documented as of this encounter
--- OUTSIDE RECORDS SUMMARY | 2022-06-30 14:49 | XMS_ITS | Encounter Summary ---
:1985 Author Organization [employer] Address [address] [place] [address] Care Team Providers Name Role Phone LopezRoselyn Shane PERAZA Primary Care Provider Reason for Visit Reason Comments Dental Hygiene cc none Encounter Details Date Type Department Care Team Description 01/18/2018 Office Visit [facility] Mariam Herrera, [facility] [address] [place] [address] Dental Hygiene (cc Dentistry Yardic, Exam none) [address] [place] [address] Social History Tobacco Use Types [...] this encounter Patient Instructions Patient InstructionsYareli Jacob, [facility] - 01/18/2018 4:10 PM CDT Your next [...] Peralta DDS 01/18/2018, 4:36 PM Yareli Jacob, [facility] - 01/18/2018 4:10 PM CDT PROPHY NOTE PROPHY/ASSESSMENT:60732::PROPHY NOTE Collaborative Agreement: ?? Patient consents to [...] 4:57 PM Routine health VARNISH CDT maintenance [id number] Routine 01/18/2018 4:57 PM Routine health CDT maintenance PROPHYLAXIS-ADULT Routine 01/18/2018 4:57 PM Routine health RECALL CDT maintenance PERIODIC ORAL Routine 01/18/2018 4:57 PM Routine health EVALUATION CDT maintenance 4 MOD EXISTING Routine 01/05/2017 11:00 PM COMPOSITE FILLING CDT 24 KS EXISTING Routine 01/05/2017 11:00 PM COMPOSITE FILLING CDT 24 KS EXISTING Routine 01/05/2017 11:00 PM COMPOSITE FILLING CDT 31 MO EXISTING Routine 01/05/2017 11:00 PM COMPOSITE FILLING CDT 2 O EXISTING COMPOSITE Routine 01/05/2017 11:00 PM FILLING CDT 8 FI EXISTING COMPOSITE Routine 01/05/2017 11:00 PM FILLING CDT 24 KS EXISTING Routine 01/05/2017 11:00 PM COMPOSITE FILLING [...] trauma), without mention of complication Fractured dental yarsani with loss o f material Fractured dental restorative material wi th loss of material Gingivitis, chronic, non-plaque induced Chronic gingivitis, non-plaque induced documented in this encounter Care Teams Rating Specialist Relationship Specialty Start Date End Date Roselyn Marroquin PA-C PCP - General Physician Executive Administrative Assistant 08/09/16 [address] [place] [address] documented as of this encounter
--- OUTSIDE RECORDS SUMMARY | 2022-06-30 14:49 | XMS_ITS | Encounter Summary ---
:1985 Author Organization [facility] Address [address] [place] [address] Care Team Providers Name Role Phone Roselyn Marroquin PA-C Primary Care Provider Encounter Details Date Type Department Care Team Description 08/09/2016 Lab Visit [facility] Encounter for screening for lipoid disorders; [address] Screening for diabetes donato keller; [place] [address] Dysmenorrhea; [phone] Metrorrhagia Social History Tobacco Use Types Packs/Day [...] - 08/09/2016 11:28 PM CDT Performed at [place] [address] [place] [address] CLIA number [id number] Roselyn Marroquin PA-C LAB_1 Performing Organization Address City/State/ZIP Code Phon e Number PN SOFT [address] [place] [address] (ABNORMAL) CBC - Complete Blood Count-No Diff (08/09/2016 2:27 PM CDT) [facility] gist Method Time Signature White Blood [...] - 08/09/2016 2:34 PM CDT Performed at [facility], [address] [place] [address] CLIA number [id number] Roselyn Marroquin PA-C LAB_1 Performing Organization Address City/[facility]/ZIP Code Phon e Number PN SOFT [address] [place] [address] Glucose (08/09/2016 2:27 PM CDT) P athologist Signature Lab Glucose 91 60 - 100 PN SOFT mg/dL Specimen Anatomical Collection Method Collection Time Receive d Time (Source) Location / / Volume Laterality 08/09/2016 2:27 PM 6 5:08 CDT PM CDT Narrative PN SOFT - 08/09/2016 5:27 PM CDT Performed at [facility], [address] [place] [address] CLIA number [id number] Roselyn Marroquin PA-C LAB_1 Performing Organization Address [facility] Phon e Number PN SOFT [address] [place] [address] Lipid Panel - LDLD If Trig High [...] - 08/09/2016 5:27 PM CDT Performed at [facility], [address] [place] [address] CLIA number [id number] Roselyn Marroquin PA-C LAB_1 Performing Organization Address City/[facility]/ZIP Code Phon e Number PN SOFT [address] [place] [address] documented in this encounter Visit Diagnoses Diagnosis Encounter for screening for lipoid disor ders Screening for lipoid disorders Screening for diabetes mellitus Dysmenorrhea Metrorrhagia documented in this encounter Care Teams Quill Winder Relationship Specialty Start Date End Date Roselyn Marroquin PA-C PCP - General Physician Reverse Engineer 08/09/16 [address] [place] [address] documented as of this encounter
--- OUTSIDE RECORDS SUMMARY | 2022-06-30 14:49 | XMS_ITS | Encounter Summary ---
:1985 Author Organization [employer] Address [address], [place] [address] Care Team Providers Name Role Phone Roselyn Marroquin PA-C Primary Care Provider Encounter Details Date Type Department Care Team Description 12/06/2017 Lab Visit [facility] Well adult exam [address] [place] [address] Social History Tobacco Use [...] - 12/06/2017 1:00 PM CST Letter sent. RAM OFFICER documented in this encounter Plan of Treatment [...] Volume Laterality 12/06/2017 12/06/2017 11:2 5 AM PROGRAM OFFICER Narrative PN SOFT - 12/06/2017 12:35 PM PROGRAM OFFICER Performed at [facility], [address] [place] [address] CLIA number [id number] Juaquin Corona MD LAB_1 Performing Organization Address City/[facility] Phon e Number PN SOFT [address] [place] [address] [phone] Glucose (12/06/2017) P athologist Signature Lab Glucose 96 70 - 100 PN SOFT mg/dL Comment: The stated glucose range is for the fast ing state. Non-fasting glucose range is 70-180 mg/d L Specimen (Source) Anatomical Collection Method Collection Time Re ceived Time Location / / Volume Laterality 12/06/2017 12/06/2017 11:2 5 AM PROGRAM OFFICER Narrative PN SOFT - 12/06/2017 12:35 PM PROGRAM OFFICER Performed at [facility], [address] [place] [address] CLIA number [id number] Juaquin Corona MD LAB_1 Performing Organization Address City/[facility] Phon e Number PN SOFT [address] [place] [address] documented in this encounter Visit Diagnoses Diagnosis Well adult exam Routine general medical examination at a health care facility documented in this encounter Care Teams Story Editor Relationship Specialty Start Date End Date Roselyn Marroquin PA-C PCP - General Physician Materials Scheduler 08/09/16 [address] [place] [address] documented as of this encounter
--- OUTSIDE RECORDS SUMMARY | 2022-06-30 14:49 | XMS_ITS | Encounter Summary ---
:1985 Author Organization [facility] Address [address], [place] [address] Care Team Providers Name Role Phone Roselyn Marroquin PA-C Primary Care Provider Reason for Visit Reason Onset Date Comments RESULTS, TEST 08/17/2016 Encounter Details Date Type Department Care Team Description 08/17/2016 Telephone [facility] Roselyn Michael PA-C RESULTS, TEST [address] [facility] [address] [place] [address] [place] [address] [phone] (Wo rk) Social History Tobacco Use Types [...] Kaufman MD BURFR OBG PN POE FR NIGHT SITTER Kellee Ramey, RN - 08/17/2016 10:59 AM CDT Pt had appt with Kylah on 08/09/16. Called pt with pap results of ASCUS, HPV+ other, colp indicated. Attempted to call pt, no vmail set up. Will try again documented in this encounter Plan of Treatment Not on filedocumented as of this encounter Visit Diagnoses Not on filedocumented in this encounter Care Teams Custom Clothier Relationship Specialty Start Date End Date Roselyn Marroquin PA-C PCP - General Physician Mileage Clerk 08/09/16 [address] [place] [address] documented as of this encounter
--- OUTSIDE RECORDS SUMMARY | 2022-06-30 14:49 | XMS_ITS | Encounter Summary ---
:1985 Author Organization [facility] Address [address] [place] [address] Care Team Providers Name Role Phone LopezRoselyn STU Primary Care Provider Reason for Referral Procedure/Equipment (Routine) - Incomplete Specialty Diagnoses / Procedures Referred By Contact Refer red To Contact Diagnoses Acute left ankle pain Aung Saeed PA-C Procedures XR Foot 3+ Views/Ankle 2 Views Series Lt [address] [facility] [address] [place] [address] Referral ID Status Reason Start Date Expiration Date Visits V isits Requested Authorized [id number] Incomplete 05/29/2018 08/28/2019 1 1 Reason for Visit Reason Comments ANKLE PAIN Encounter Details Date Type Department Care Team Description 05/29/2018 Hospital Encounter [facility] Aung Saeed Ac dustin left ankle pain; Esteban Osorio PA-C Sprain of left ankle, unspecified ligame nt, initial encounter [address] [facility] [address] [place] [address] E [phone] [place] [address] Social History Tobacco Use Types Packs/Day Years [...] 12:00 PM CDT NAME: TELLO TERRELL MR#: [id number] CSN: [id number] AUTHENTICATING CLINICIAN: Aung Saeed PA-C CONFIRM #: [id number] LOC: 520 URGENT CARE PROGRESS NOTE DATE [...] it hurts. 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 SSK:JACOBY C: CONFIRM #: [id number] documented in this encounter Plan of Treatment [...] out. documented in this encounter Care Teams Supervising Architect Relationship Specialty Start Date End Date Roselyn Marroquin PA-C PCP - General Physician Marble Cleaner 08/09/16 [address] [place] [address] documented as of this encounter
--- OUTSIDE RECORDS SUMMARY | 2022-06-30 14:49 | XMS_ITS | Encounter Summary ---
:1985 Author Organization [facility] Address [address] [place] [address] Care Team Providers Name Role Phone Roselyn Marroquin PA-C Primary Care Provider Encounter Details Date Type Department Care Team Description 08/25/2020 Immunization [facility] [address] Flu Need for prophylactic Clinic vaccination and [address] [place] [address] influenza [phone] Social History Tobacco Use Types Packs/Day Years [...] influenza documented in this encounter Care Teams Talent Analyst Relationship Specialty Start Date End Date Roselyn Marroquin PA-C PCP - General Physician Cabinet Maker 08/09/[address] [place], [place] [address] documented as of this encounter
--- OUTSIDE RECORDS SUMMARY | 2022-06-30 14:49 | XMS_ITS | Encounter Summary ---
:1985 Author Organization [facility] Address [address] [place] [address] Care Team Providers Name Role Phone Needs Pcp, Assignment Primary Care Provider Reason for Visit Reason Onset Date Comments Other 07/31/2016 Encounter Details Date Type Department Care Team Description 07/31/2016 Telephone CODING DEPT ONLY 5050 Needs Pcp, Assignment Other FAMILY MEDICINE [facility] [address] [place] [address] [address] Social History Tobacco Use Types Packs/Day Years [...] on filedocumented in this encounter Care Teams Button Cutting Machine Operator Relationship Specialty Start Date End Date Needs Pcp, Assignment PCP - General 02/18/16 08/08/16 [place] [address] documented as of this encounter
--- OUTSIDE RECORDS SUMMARY | 2022-06-30 14:49 | XMS_ITS | Encounter Summary ---
:1985 Author Organization [employer] Address [address] [place] [address] Care Team Providers Name Role Phone Roselyn Marroquin PA-C Primary Care Provider Reason for Visit Reason Comments ROUTINE HEALTH MAINTENANCE Encounter Details Date Type Department Care Team Description 12/06/2017 Office Visit [facility] Juaquin Corona Well ad ult exam (Primary Dx); Medicine Pap smear of cervix reminder not needed forever; [address] [address] [address] Tinea versicolor; [place], [place] Tobacco abuse [address] [phone] Social History Tobacco Use Types Packs/Day Years [...] Comments Blood Pressure 110/62 12/06/2017 9:54 AM BILINGUAL CASE MANAGER Pulse 88 12/06/2017 9:54 AM BILINGUAL CASE MANAGER Temperature - - Respiratory Rate - - Oxygen Saturation - - Inhaled Oxygen Concentration - - Weight 55.4 kg (122 lb 1.6 oz) 12/06/2017 9:54 AM BILINGUAL CASE MANAGER Height 165.7 cm (5' 5.25) 12/06/2017 9:54 AM BILINGUAL CASE MANAGER Body Mass Index 20.16 12/06/2017 9:54 AM BILINGUAL CASE MANAGER documented in this encounter Progress Notes Sonia Alexander RN - 12/19/2017 12:12 PM CST See telephone encounter initiated 12/19/2017 to notify patient of results. NGUAL CASE MANAGER Juaquin Corona MD - 12/06/2017 10:00 AM [...] (DIFLUCAN) 150 MG tablet 4. Tobacco abuse ([facility]) Z72.0 nicotine (NICODERMCQ) 14 MG/24HR patch [...] year Juaquin Corona MD 9:13 AM 12/07/2017 NGUAL CASE MANAGER documented in this encounter Plan of Treatment Not on filedocumented as of this encounter Procedures Procedure Name Priority Date/Time Associated Comments Diagnosis PAP TEST ORDER Routine 12/06/2017 10:26 AM Pap smear of cervix Results for this BILINGUAL CASE MANAGER reminder not needed procedur e are in forever the results section. HPV WITH 16 18 Routine 12/06/2017 10:26 AM Well adult exam Res ults for this GENOTYPING, BILINGUAL CASE MANAGER procedure are i n CERVICAL/ENDOCERVICA the res ults L section. ANATOMICAL PATH Routine 12/06/2017 10:26 AM Well adult exam Re sults for this LIQUID BASED BILINGUAL CASE MANAGER procedure are i n the results section. documented in this encounter Results Pap Smear (12/06/2017 10:26 AM BILINGUAL CASE MANAGER) Specimen (Source) Anatomical Collection Method Collection Time Re ceived Time Location / / Volume Laterality 12/06/2017 10:26 AM BILINGUAL CASE MANAGER Narrative PN SOFT - 12/16/2017 6:26 PM BILINGUAL CASE MANAGER FINAL GYNECOLOGICAL CYTOLOGY REPORT Pathology #: [id number] ?Date Obtained: 12/06/2017 ? Date Received: 12/07/2017 INTERPRETATION/RESULTS: Atypical squamous cells, cannot exclude high grade squamous intraepithelial lesion (ASC-H). SPECIMEN ADEQUACY: Satisfactory for Evaluation. ??Endocervi eusebio cells/transformation zone component present. Verified on 12/16/2017 ??by HENRIQUE BUENROSTRO MD (electronic signature) CLINICAL NOTES: ?Abnormal bleeding: No, LMP: [id number], Menstrual status: None ?Apply, Current form of [...] false-negative report s may occur. Performed at [facility], [address] [place] [address] Juaquin Corona MD LAB_1 Performing Organization Address City/State/ZIP Code Phon e Number PN SOFT [address] [place] [address] (ABNORMAL) HPV with 16 18 Genotyping (12/06/2017 10:26 AM BILINGUAL CASE MANAGER) [facility] gist Method Time Signature HPV High Risk Not Detected PN SOFT 16 HPV High Risk Not Detected PN SOFT 18 Other HPV High Detected (A) PN SOFT Risk Not 16/18 Comment: ........................................ ................................. The [employer] HPV Test is a qualitative in v itro test for the detection of Human Papillomavirus in [facility] ePa patient specimens. ??The test utilizes amplifica [...] and its pe rformance characteristics determined by [employer] [facility]. It has not been cleared or approved by [facility]. The laboratory is regulated under CLIA as qualified to perform high-complexity testing. This test is used for clinical purposes. It should not be regarded as investigational or fo r research. Specimen Anatomical Collection Method Collection Time Receive d Time (Source) Location / / Volume Laterality 12/06/2017 10:26 12/06/2017 AM BILINGUAL CASE MANAGER 10:26 AM BILINGUAL CASE MANAGER Narrative PN SOFT - 12/11/2017 1:11 PM BILINGUAL CASE MANAGER Performed at [place] [id number] CLIA number [id number] Juaquin Corona MD LAB_1 Performing Organization Address City/State/ZIP Code Phon e Number PN SOFT [address] [place] [address] Pap Test Order (12/06/2017 10:26 AM BILINGUAL CASE MANAGER) [facility] Pap Smear Collected PN SOFT Monolayer tracking test Specimen Anatomical Collection Method Collection Time Receive d Time (Source) Location / / Volume Laterality 12/06/2017 10:26 12/07/2017 4:41 AM BILINGUAL CASE MANAGER AM BILINGUAL CASE MANAGER Narrative PN SOFT - 12/06/2017 10:27 AM BILINGUAL CASE MANAGER Performed at [address] [address] CLIA number [id number] Juaquin Corona MD LAB_1 Performing Organization Address City/[facility]/ZIP [facility] Phon e Number PN SOFT [address] [place] [address] Lipid Panel - LDLD If Trig High [...] Volume Laterality 12/06/2017 12/06/2017 11:2 5 AM BILINGUAL CASE MANAGER Narrative PN SOFT - 12/06/2017 12:35 PM BILINGUAL CASE MANAGER Performed at [facility], [address] [place] [id number] CLIA number [id number] Juaquin Corona MD LAB_1 Performing Organization Address [facility] Phon e Number PN SOFT [address] [place] [address] Glucose (12/06/2017) P athologist Signature Lab Glucose 96 70 - 100 PN SOFT mg/dL Comment: The stated glucose range is for the fast ing state. Non-fasting glucose range is 70-180 mg/d L Specimen (Source) Anatomical Collection Method Collection Time Re ceived Time Location / / Volume Laterality 12/06/2017 12/06/2017 11:2 5 AM BILINGUAL CASE MANAGER Narrative PN SOFT - 12/06/2017 12:35 PM BILINGUAL CASE MANAGER Performed at [facility], [address] [place] [id number] CLIA number [id number] Juaquin Corona MD LAB_1 Performing Organization Address [facility]/ZIP Code Phon e Number PN SOFT [address] [place] [address] documented in this encounter Visit Diagnoses Diagnosis [...] facility documented in this encounter Care Teams Suede Cleaner Relationship Specialty Start Date End Date Roselyn Marroquin PA-C PCP - General Physician [employer] Practitioner 08/09/16 [address] [place] [address] documented as of this encounter
--- OUTSIDE RECORDS SUMMARY | 2022-06-30 14:49 | XMS_ITS | Encounter Summary ---
:1985 Author [facility] Address [address] [place] [address] Care Team Providers Name Role Phone LopezRoselyn Shane PERAZA Primary Care Provider Reason for Visit Reason Comments PAP,ABNORMAL ASC-H, HPV+ non 16-18 Encounter Details Date Type Department Care Team Description 12/19/2017 Telephone Cervical Cancer Christine Johnson MD PAP,ABNORMAL (ASC-H, Screening and [address] HPV+ non 16-18) Management [facility] 5th Floor [address] [place] [address] [place] [address] [phone] Social History Tobacco Use Types Packs/Day Years [...] screening on 12/06/[address] Corona at [facility] Pap result(s): ASC-H, HPV+ (non 16/18), hx abnormal Colposcopy recommended per guidelines. Informed patient of results. Scheduled colposcopy. Patient given verbal preparation instructions forprocedure. Sent follow up [employer] message. Future Appointments Date Time Provider Department Center 12/25/2017 1:00 PM Igor Kaufman MD [facility] PN POE FR Routing to provider as an FYI. STOPPER TECHNICIAN documented in this encounter Plan of Treatment Not on filedocumented as of this encounter Visit Diagnoses Not on filedocumented in this encounter Care Teams Insurance Agency Owner Relationship Specialty Start Date End Date Roselyn Marroquin PA-C PCP - General Physician Claims Counsel 08/09/16 [address] [place] [address] documented as of this encounter
--- OUTSIDE RECORDS SUMMARY | 2022-06-30 14:49 | XMS_ITS | Encounter Summary ---
:1985 Author Organization [facility] Address [address], [place] [address] Care Team Providers Name Role Phone LopezVinnyRoselyndonald Lynn PA-C Primary Care Provider Encounter Details Date Type Department Care Team Description 08/09/2016 Lab Visit [facility] Urinary frequency [address] [place] [address] Social History Tobacco Use [...] Hold for Culture (08/09/2016 1:39 PM CDT) [facility] Method Time Signature Urine [...] U Specific 1.020 1.005 - PN SOFT [place] 1.030 Urobilinogen Negative Negative PN SOFT Urine Eu/dL Turbidity Clear Clear PN SOFT Color Yellow PN SOFT Specimen Anatomical Collection Method Collection Time Receive d Time (Source) Location / / Volume Laterality 08/09/2016 1:39 PM 6 1:39 CDT PM CDT Narrative PN SOFT - 08/09/2016 1:45 PM CDT Performed at [facility], [address] [place] [address] CLIA number [id number] Roselyn Marroquin PA-C LAB_1 Performing Organization Address City/State/ZIP Code Phon e Number PN SOFT [address] [place] [address] documented in this encounter Visit Diagnoses Diagnosis Urinary frequency documented in this encounter Care Teams Cleaning Manager Relationship Specialty Start Date End Date Roselyn Marroquin PA-C PCP - General Physician Manual Writer 08/09/16 [address] [place] [address] documented as of this encounter
--- OUTSIDE RECORDS SUMMARY | 2022-06-30 14:49 | XMS_ITS | Encounter Summary ---
:1985 Author Organization [facility] Address [address] [place] [address] Care Team Providers Name Role Phone Unassigned, Provider Primary Care Provider Unavailable Encounter Details Date Type Department Care Team Description 01/04/2015 Lab Visit [place] Urinary frequency [address] [place] [address] Social History Tobacco Use [...] with patient. No treatment at this time. ING ROOM ATTENDANT documented in this encounter Plan of Treatment Not on filedocumented as of this encounter Procedures Procedure Name Priority Date/Time Associated Comments Diagnosis AUTOMATED URINALYSIS Routine 01/04/2015 4:46 PM Urinary freque ncy Results for this DIPSTICK POCT CDT procedure are in the results section. documented in this encounter Results URINE DIPSTICK NPT ALEC OAKES AND ALEKSANDAR ONLY (01/04/2015 4:46 PM CDT) [facility] Method Time Signature Urine Type Urine:clean [...] U Specific 1.015 1.005 - HP CONVERSION [place] 1.030 Urobilinogen Negative Negative HP CONVERSION Urine Eu/dL Turbidity Clear Clear HP CONVERSION Color Yellow HP CONVERSION Specimen Anatomical Collection Method Collection Time Receive d Time (Source) Location / / Volume Laterality 01/04/2015 4:46 PM 5 4:46 CDT PM CDT Narrative HP CONVERSION - 01/04/2015 4:50 PM CDT Performed at [facility], [address] [place] [address] Transcriptions 11/30/2016 10:12 AM CSTNotes Recorded by Angela Daniels DO on 01/05/2015 at 11:29 AMdiscussed results with patient. No treatment at this time. Angela Daniels DO LAB_1 Performing Organization Address City/State/[facility] Code Phon e Number HP CONVERSION documented in this encounter Visit Diagnoses Diagnosis Urinary frequency documented in this encounter Care Teams Desizing Machine Offbearer Relationship Specialty Start Date End Date Unassigned, Provider PCP - General 12/01/00 02/17/16 [address] [place] [address] documented as of this encounter
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
--- OUTSIDE RECORDS SUMMARY | 2022-06-30 14:49 | XMS_ITS | Encounter Summary ---
:1985 Author Organization [facility] Address [address], [place] [address] Care Team Providers Name Role Phone LopezVinnyRoselyndonald Lynn PA-C Primary Care Provider Reason for Visit Reason Comments Dysuria couple day, blood in urine a nd when wiping Encounter Details Date Type Department Care Team Description 06/26/2018 Office Visit [facility] Jarett Gutierrez MD Acute cystitis with hematuria (Primary D x); Medicine [address] [place] [address] Viral upper respiratory tract infection; [address] [place], [place] Dysuria; [place] [address] Encounter for test, result unk nown [phone] (Wo rk) Social History Tobacco Use Types [...] Body Mass Index 20.03 12/06/2017 9:54 AM SURFACE GRINDER documented in this encounter Patient Instructions Patient [...] can you learn more? 1. Go to [employer] or [employer]. 2. Enter K848 in the search box. Current as of: March 02, 2017 Content Version: 11.7 ?? [id number] [facility]. documented in this encounter Progress Notes Jarett [...] Years of education: N/A Occupational History ??? [employer] in [place] Social History Main Topics ??? Smoking status: [...] - Trace mg/dL Final ??? U Specific [place] 06/26/2018 1.020 1.005 - 1.030 Final ??? [...] - 06/26/2018 2:44 PM CDT Performed at [facility], [address] [place] [address] CLIA number [id number] Jarett Gutierrez MD LAB_1 Performing Organization Address [facility] Phon e Number PN SOFT [address] [place] [address] (ABNORMAL) Urine Microscopic (06/26/2018 2:05 PM CDT) [...] - 06/26/2018 2:19 PM CDT Performed at [facility], [address] [place] [address] CLIA number [id number] Jarett Gutierrez MD LAB_1 Performing Organization Address [facility] Phon e Number PN SOFT [address] [place] [address] (ABNORMAL) Urine Culture (06/26/2018 2:05 PM CDT) [...] - 06/27/2018 8:58 PM CDT Performed at [facility], [address] [place] [address], CLIA Number [id number] Jarett Gutierrez MD LAB_1 Performing Organization Address [facility] Phon e Number PN SOFT [address] [place], [place] [address] [phone] (ABNORMAL) Urinalysis Routine, Micro/Culture if Pos (06/26/2018 2:05 PM CDT) [facility] Method Time Signature Urine Type [...] U Specific 1.020 1.005 - PN SOFT [place] 1.030 Urobilinogen Negative Negative PN SOFT Urine Eu/dL Specimen (Source) Anatomical Collection Method Collection Time Re ceived Time Location / / Volume Laterality Urine: 06/26/2018 2:05 PM CDT Narrative PN SOFT - 06/26/2018 2:11 PM CDT Performed at [facility], [address] [place] [address] CLIA number [id number] Jarett Gutierrez MD LAB_1 Performing Organization Address [facility] Phon e Number PN SOFT [address] [place] [address] [phone] documented in this encounter Visit Diagnoses Diagnosis Acute cystitis with hematuria - Primary Acute cystitis Viral upper respiratory tract infection Acute upper respiratory infections of un specified site Dysuria Encounter for test, result unk nown documented in this encounter Care Teams Special Delivery Mail Carrier Relationship Specialty Start Date End Date Roselyn Marroquin PA-C PCP - General Physician Housekeeping Attendant 08/09/16 [address] [place] [address] documented as of this encounter
--- OUTSIDE RECORDS SUMMARY | 2022-06-30 14:49 | XMS_ITS | Encounter Summary ---
:1985 Author Organization [facility] Address [address] [address] Care Team Providers Name Role Phone Lopez Roselyn Lynn PA-C Primary Care Provider Reason for Visit Reason Comments Dysuria frequency fatigue hematuria [id number] Encounter Details Date Type Department Care Team Description 09/26/2019 Office Visit [facility] Percy J, Dysuria (Primary Dx); Medicine PA-C Hematuria, microscopic [address] [address] [place] [address] [phone] Social History Tobacco Use Types Packs/Day Years [...] Comments Blood Pressure 122/82 09/26/2019 3:41 PM MANAGER STERILE Pulse 88 09/26/2019 3:41 PM MANAGER STERILE Temperature 36.8 ??C (98.2 ??F) 09/26/2019 3:41 PM MANAGER STERILE Respiratory Rate 16 09/26/2019 3:41 PM MANAGER STERILE Oxygen Saturation - - Inhaled Oxygen Concentration - - Weight 52.6 kg (116 lb) 09/26/2019 3:41 PM MANAGER STERILE Height 170.2 cm (5' 7) 09/26/2019 3:41 PM MANAGER STERILE Body Mass Index 18.17 09/26/2019 3:41 PM MANAGER STERILE documented in this encounter Patient Instructions Patient [...] symptoms, feeling sicker, or any other concerns. GER STERILE documented in this encounter Progress Notes Percy Gutierrez PA-C - 09/26/2019 3:20 PM CST Chief Complaint Patient presents with ??? Dysuria frequency fatigue hematuria [id number] History of present illness: Betty Tai is [...] Protein, Urine Qual (mg/dL) Trace 09/26/2019 Specific [place], Urine 1.015 09/26/2019 Urobilinogen, Urine (EU/dL) 0.2 [...] symptoms, feeling sicker, or any other concerns. GER STERILE documented in this encounter Plan of Treatment Not on filedocumented as of this encounter Results (ABNORMAL) Urine Culture (09/26/2019 3:48 PM MANAGER STERILE) Component Value Ref Test Method Analysis Performed Patholog ist Range Time At Signature Urine Growth (A) 09/28/2019 [facility] Culture 10:34 AM HOSPITAL MANAGER STERILE Urine 10,000 - 50,000 GIANLUCA 09/28/2019 [facility] Culture CFU/mL SENSITIVITY 10:34 AM [facility] Staphylococcus MANAGER STERILE saprophyticus Specimen Anatomical Collection Method Collection Time Receive d Time (Source) Location / / Volume Laterality Urine URINE SPECIMEN Non-blood 09/26/2019 3:48 PM 019 3:48 COLLECTION, CLEAN Collection / MANAGER STERILE PM MANAGER STERILE CATCH / Unknown Unknown Narrative [facility] - 09/28/2019 10:[address] Routine testing of urine isolates of Sta phylococcus saprophyticus is not advised, because infections respond to concentrat ions achieved in urine of antimicrobial agents commonly used to treat acute, unc omplicated UTIs (eg, nitrofurantoin, trimethoprim ?? sulfamethoxazole, or a f luoroquinolone). Percy Gutierrez PA-C LAB_1 Performing Organization Address City/State/ZIP Code Phon e Number [address] [address] (ABNORMAL) Urine Dipstick NPT (09/26/2019 3:48 PM MANAGER STERILE) Patholo gist Method Time Signature Glucose Urine Negative Negative 09/26/2019 [facility] Qual (mg/dL) 3:55 PM MANAGER STERILE Bilirubin Negative Negative 09/26/2019 [facility] Urine 3:55 PM MANAGER STERILE Ketones, Negative Negative 09/26/2019 [facility] Urine (mg/dL) 3:55 PM MANAGER STERILE Specific 1.015 1.005 - 09/26/2019 [facility] [place], 1.030 3:55 PM MANAGER STERILE Urine Blood, Urine Trace Neg/Trace 09/26/2019 [facility] 3:55 PM MANAGER STERILE PH Urine 7.0 5.0 - 8.0 09/26/2019 [facility] 3:55 PM MANAGER STERILE Protein, Trace Neg/Trace 09/26/2019 [facility] Urine Qual 3:55 PM MANAGER STERILE (mg/dL) Urobilinogen, 0.2 <2.0 09/26/2019 [facility] Urine (EU/dL) 3:55 PM MANAGER STERILE Nitrite Urine Negative Negative 09/26/2019 [facility] 3:55 PM MANAGER STERILE Leukocyte Large (A) Negative 09/26/2019 [facility] Est. 3:55 PM MANAGER STERILE Urine Color Yellow Straw-Yellow 09/26/2019 [facility] 3:55 PM MANAGER STERILE Urine Clarity Hazy (A) Clear 09/26/2019 [facility] 3:55 PM MANAGER STERILE Specimen Anatomical Collection Method Collection Time Receive d Time (Source) Location / / Volume Laterality Urine URINE SPECIMEN Non-blood 09/26/2019 3:48 PM 019 3:48 COLLECTION, CLEAN Collection / MANAGER STERILE PM MANAGER STERILE CATCH / Unknown Unknown Percy Gutierrez PA-C LAB_1 Performing Organization Address City/State/ZIP Code Phon e Number [facility] [address] [place] [address] [phone] [facility] [address] [place] [address] documented in this encounter Visit Diagnoses Diagnosis Dysuria - Primary Hematuria, microscopic Microscopic hematuria documented in this encounter Care Teams Pattern Grader Cutter Relationship Specialty Start Date End Date Roselyn Marroquin PA-C PCP - General Physician General Neurologist 08/09/16 [address] [place] [address] documented as of this encounter
--- OUTSIDE RECORDS SUMMARY | 2022-06-30 14:50 | XMS_ITS | Encounter Summary ---
:1985 Author Organization [facility] Address [address] [place] [address] Care Team Providers Name Role Phone Unassigned, Provider Primary Care Provider Unavailable Encounter Details Date Type Department Care Team Description 01/07/2009 PN Conversion [place] [address] [place] [address] Social History Tobacco Use Types Packs/Day Years [...] on filedocumented in this encounter Care Teams Supervisor Pipeline Relationship Specialty Start Date End Date Unassigned, Provider PCP - General 12/01/00 02/17/[address] [place] [address] documented as of this encounter
--- OUTSIDE RECORDS SUMMARY | 2022-06-30 14:50 | XMS_ITS | Encounter Summary ---
:1985 Author Organization [facility] Address [address], [place] [address] Care Team Providers Name Role Phone Unassigned, Provider Primary Care Provider Unavailable Encounter Details Date Type Department Care Team Description 02/04/2009 Routine [place] Katty Armstrong RN Obstetrics/Gynecolog y [address] [place], [place] [address] Social History Tobacco Use Types Packs/Day Years [...] on filedocumented in this encounter Care Teams Overhead Crane Technician Relationship Specialty Start Date End Date Unassigned, Provider PCP - General 12/01/00 02/17/16 [address] [place] [address] documented as of this encounter
--- OUTSIDE RECORDS SUMMARY | 2022-06-30 14:50 | XMS_ITS | Encounter Summary ---
:1985 Author Organization [facility] Address [address] [address] Care Team Providers Name Role Phone Unassigned, Provider Primary Care Provider Unavailable Reason for Visit Reason Comments DIZZINESS Back Pain Encounter Details Date Type Department Care Team Description 01/04/2015 Telephone [facility] Pcp, DIZZINESS; Back Pain Medicine Assignment [address] [place] [address] Social History Tobacco Use Types Packs/Day Years Used Date Smoking Tobacco: Never Assessed Sex Assigned at Date Recorded Not on file documented as of this encounter Nursing Notes Strala Garcia - 01/04/2015 1:28 PM CDT Pt states she has been experiencing back pain and dizziness for the past four days. Pt states she did not want to talk with a nurse and is coming in today. documented in this encounter Plan of Treatment Not on filedocumented as of this encounter Visit Diagnoses Not on filedocumented in this encounter Care Teams Territory Manager Relationship Specialty Start Date End Date Unassigned, Provider PCP - General 12/01/00 02/17/[address] [place] [address] documented as of this encounter
--- OUTSIDE RECORDS SUMMARY | 2022-06-30 14:50 | XMS_ITS | Encounter Summary ---
:1985 Author Organization [facility] Address [address], [place] [address] Care Team Providers Name Role Phone Unassigned, Provider Primary Care Provider Unavailable Encounter Details Date Type Department Care Team Description 11/05/2008 Initial Igor Burroughs Obstetrics/[place] [address] [place] [address] [place] [address] [phone] (Wo rk) Social History Tobacco Use Types Packs/Day Years Used Date Smoking Tobacco: Never Assessed Sex Assigned at Date Recorded Not on file documented as of this encounter Last Filed Vital Signs Vital Sign Reading Time Taken Comments Blood Pressure 108/60 11/05/2008 1:16 PM WASTE MINIMIZATION TECHNICIAN Pulse - - Temperature - - Respiratory Rate - - Oxygen Saturation - - Inhaled Oxygen Concentration - - Weight 58 kg (127 lb 15.6 oz) 11/05/2008 1:16 PM WASTE MINIMIZATION TECHNICIAN C: 58.1kg Height 165.1 cm (5' 5) 11/05/2008 1:16 PM WASTE MINIMIZATION TECHNICIAN C: 165.1 cm Body Mass Index 21.3 11/05/2008 1:16 PM WASTE MINIMIZATION TECHNICIAN documented in this encounter Plan of Treatment Not on filedocumented as of this encounter Visit Diagnoses Not on filedocumented in this encounter Care Teams Hide Cooking Operator Relationship Specialty Start Date End Date Unassigned, Provider PCP - General 12/01/00 02/17/[address] [place] [address] documented as of this encounter
--- OUTSIDE RECORDS SUMMARY | 2022-06-30 14:50 | XMS_ITS | Encounter Summary ---
:1985 Author Organization [facility] Address [address] [address] Care Team Providers Name Role Phone Unassigned, Provider Primary Care Provider Unavailable Encounter Details Date Type Department Care Team Description 10/06/2008 PN Conversion Only [facility] CONVERSION Katty Armstrong , RN Social History Tobacco Use Types Packs/Day Years Used Date Smoking Tobacco: Never Assessed Sex Assigned at Date Recorded Not on file documented as of this encounter Plan of Treatment Not on filedocumented as of this encounter Visit Diagnoses Not on filedocumented in this encounter Care Teams Silviculture Teacher Relationship Specialty Start Date End Date Unassigned, Provider PCP - General 12/01/00 02/17/[address] [place] [address] documented as of this encounter
--- OUTSIDE RECORDS SUMMARY | 2022-06-30 14:50 | XMS_ITS | Encounter Summary ---
:1985 Author Organization [facility] Address [address] [place] [address] Care Team Providers Name Role Phone Unassigned, Provider Primary Care Provider Unavailable Encounter Details Date Type Department Care Team Description 03/23/2009 PN Conversion Only OTHER CONVERSION [address] [place] [address] Social History Tobacco Use Types Packs/Day Years Used Date Smoking Tobacco: Never Assessed Sex Assigned at Date Recorded Not on file documented as of this encounter Plan of Treatment Not on filedocumented as of this encounter Visit Diagnoses Not on filedocumented in this encounter Care Teams Bobbin Stripper Relationship Specialty Start Date End Date Unassigned, Provider PCP - General 12/01/00 02/17/[address] [place] [address] documented as of this encounter
--- OUTSIDE RECORDS SUMMARY | 2022-06-30 14:50 | XMS_ITS | Encounter Summary ---
:1985 Author Organization [facility] Address [address] [place] [address] Care Team Providers Name Role Phone Unassigned, Provider Primary Care Provider Unavailable Reason for Visit Reason Comments Other Encounter Details Date Type Department Care Team Description 10/09/2008 Telephone [facility], Message Other [address] [place] [address] Social History Tobacco Use Types Packs/Day Years Used Date Smoking Tobacco: Never Assessed Sex Assigned at Date Recorded Not on file documented as of this encounter Progress Notes [place], Message - 10/09/2008 5:01 PM CST Phone Note filed by [employer] at 02/09/11 0842 Author: [employer] Service: (none) Author Type: (none) Filed: 02/09/11 1242 Note Time: 10/09/08 1701 Status: Signed Household Appliance Repairer: [facility] Pt notified U/C results 50,000-100,000 e.coli. Pt given rx for Macrobid 100mg 1 po BID x 7 days per Lo Puckett TELECASTING ENGINEER. Pt informed abx faxed to pharmacy. Pt verified allergies NKDA Created on 09Oct2008 5:01pm by KIRILL TERRELL ED FRAMES ASSEMBLER documented in this encounter Plan of Treatment Not on filedocumented as of this encounter Visit Diagnoses Not on filedocumented in this encounter Care Teams Geophysical Laboratory Director Relationship Specialty Start Date End Date Unassigned, Provider PCP - General 12/01/00 02/17/[address] [place] [address] documented as of this encounter
--- OUTSIDE RECORDS SUMMARY | 2022-06-30 14:50 | XMS_ITS | Encounter Summary ---
:1985 Author Organization [facility] Address [address] [place] [address] Care Team Providers Name Role Phone Unassigned, Provider Primary Care Provider Unavailable Encounter Details Date Type Department Care Team Description 05/04/2009 Office Visit Katty Odom, RN Obstetrics/Gynecolog y [address] [place] [address] Social History Tobacco Use Types Packs/Day Years [...] in this encounter Progress Notes Katty Armstrong, CHEMISTRY SPECIALIST, GARMENT PRESSER - 05/04/2009 12:01 AM CDT Progress Notes signed by BALAJI Kwan at 05/04/09 1254 Author: BALAJI Kwan Service: (none) Author Type: Nurse Practitioner Filed: 02/11/11 1441 Note Time: 05/04/09 0001 Status: Signed Operations Controller: BALAJI Kwan (Nurse Practitioner) Post- Visit SUBJECTIVE: [...] updated today on the Health [facility] of [facility]. Medications: Reviewed and updated today on Health Profile in [facility]. Tobacco: None. OBJECTIVE: Blood Pressure: 110/70 Height: 65 inches Current Weight: 123 pounds General: Well-developed, well-nourished, and in no apparent distress. Abdomen: Soft, nontender without organomegaly, masses, hernias or inguinal adenopathy. Pelvic: External Genitalia: Normal without lesions. Perineum: Well healed without granulation tissue or tenderness. Bartholin's glands, urethra, [place]'s 9glands without lesions. Vagina: [place], moist and without lesions. Cervix: :Without lesions. [...] on filedocumented in this encounter Care Teams Cotton Washer Relationship Specialty Start Date End Date Unassigned, Provider PCP - General 12/01/00 02/17/[address] [place] [address] documented as of this encounter
--- OUTSIDE RECORDS SUMMARY | 2022-06-30 14:50 | XMS_ITS | Encounter Summary ---
:1985 Author Organization [facility] Address [address], [place] [address] Care Team Providers Name Role Phone Unassigned, Provider Primary Care Provider Unavailable Encounter Details Date Type Department Care Team Description 03/18/2009 Routine Igor Burroughs Obstetrics/[place] [address] [facility] [address] [place] [address] [place] [address] [phone] (Wo rk) Social History Tobacco Use Types [...] on filedocumented in this encounter Care Teams Tobacco Hanger Relationship Specialty Start Date End Date Unassigned, Provider PCP - General 12/01/00 02/17/16 [address] [place] [address] documented as of this encounter
--- OUTSIDE RECORDS SUMMARY | 2022-06-30 14:50 | XMS_ITS | Encounter Summary ---
:1985 Author Organization [facility] Address [address] [place] [address] Care Team Providers Name Role Phone Unassigned, Provider Primary Care Provider Unavailable Reason for Visit Reason Comments VAGINITIS Urinary Frequency DIZZINESS Encounter Details Date Type Department Care Team Description 01/04/2015 Office Visit [facility] Angela Daniels Urinar y frequency (Primary Dx); Medicine DO Tobacco abuse [address] [address] [place] [address] [phone] Social History Tobacco Use Types Packs/Day Years [...] disorder documented in this encounter Care Teams Special Effects Makeup Artist Relationship Specialty Start Date End Date Unassigned, Provider PCP - General 12/01/00 02/17/[address] [place] [address] documented as of this encounter
--- OUTSIDE RECORDS SUMMARY | 2022-06-30 14:50 | XMS_ITS | Encounter Summary ---
:1985 Author Organization [facility] Address [address] [place] [address] Care Team Providers Name Role Phone Unassigned, Provider Primary Care Provider Unavailable Encounter Details Date Type Department Care Team Description 11/08/2011 Lab Visit [facility] [address] [place] [address] Social History Tobacco Use Types Packs/Day Years Used Date Smoking Tobacco: Never Assessed Sex Assigned at Date Recorded Not on file documented as of this encounter Plan of Treatment Not on filedocumented as of this encounter Procedures Procedure Name Priority Date/Time Associated Diagnosis Comme nts IRON BINDING Routine 11/08/2011 2:03 PM Fatigue Results f or this CAPACITY (INCL ELECTRICAL WIRING LINEMAN procedure are in IRON) the results section. TSH AND FREE T4 Routine 11/08/2011 2:03 PM Fatigue Result s for this (FRT4 IF TSH ELECTRICAL WIRING LINEMAN procedure are i n ABNORM) the results section. VITAMIN D Routine 11/08/2011 2:03 PM Fatigue Results f or this 25-HYDROXY, TOTAL ELECTRICAL WIRING LINEMAN procedure are in the results section. COMPLETE BLOOD Routine 11/08/2011 2:03 PM Fatigue Results for this COUNT-NO DIFF ELECTRICAL WIRING LINEMAN procedure are in the results section. FERRITIN Routine 11/08/2011 2:03 PM Fatigue Results f or this ELECTRICAL WIRING LINEMAN procedure are i n the results section. documented in this encounter Results Ferritin (11/08/2011 2:03 PM ELECTRICAL WIRING LINEMAN) P athologist Signature Ferritin Serum 58 10 - 291 HP CONVERSION ng/mL Specimen Anatomical Collection Method Collection Time Receive d Time (Source) Location / / Volume Laterality 11/08/2011 2:03 PM 2 9:12 ELECTRICAL WIRING LINEMAN PM ELECTRICAL WIRING LINEMAN Arielle Carvajal LAB_1 Performing Organization Address City/State/ZIP Code Phon e Number HP CONVERSION IRON BINDING CAPACITY (INCL IRON) (11/08/2011 2:03 PM ELECTRICAL WIRING LINEMAN) athologist Signature Iron, Serum 126 50 - 165 HP CONVERSION ug/dL Iron Binding 260 250 - 450 HP CONVERSION Capacity ug/dL Iron Saturation 48 20 - 55 % HP CONVERSION Specimen Anatomical Collection Method Collection Time Receive d Time (Source) Location / / Volume Laterality 11/08/2011 2:03 PM 2 9:12 ELECTRICAL WIRING LINEMAN PM ELECTRICAL WIRING LINEMAN [facility]_1 Performing Organization Address City/State/ZIP Code Phon e Number HP CONVERSION Hemogram/Plts (11/08/2011 2:03 PM ELECTRICAL WIRING LINEMAN) athologist Signature White Blood Cell 7.2 3.8 [...] Volume Laterality 11/08/2011 2:03 PM 2 2:03 ELECTRICAL WIRING LINEMAN PM ELECTRICAL WIRING LINEMAN Narrative HP CONVERSION - 11/08/2011 2:05 PM ELECTRICAL WIRING LINEMAN Performed at [facility], [address] [place] [address] Arielle Carvajal LAB_1 Performing Organization Address City/State/ZIP [facility] Phon e Number HP CONVERSION Vitamin D 25-Hydroxy, Total (11/08/2011 2:03 PM ELECTRICAL WIRING LINEMAN) athologist Signature Vitamin D 25 Oh 34 20 - 80 HP CONVERSION ng/mL Comment: Deficiency = <20 Adequate ??= 20-29 Preferred = 30-50 Uncertain safety = 51-80 High = >80 Specimen Anatomical Collection Method Collection Time Receive d Time (Source) Location / / Volume Laterality 11/08/2011 2:03 PM 2 9:12 ELECTRICAL WIRING LINEMAN PM ELECTRICAL WIRING LINEMAN Arielle Carvajal LAB_1 Performing Organization Address City/[facility]/ZIP Code Phon e Number HP CONVERSION TSH AND FREE T4 (FRT4 IF TSH ABNORM) (11/08/2011 2:03 PM ELECTRICAL WIRING LINEMAN) P athologist Signature Thyroid 2.21 0.20 - HP CONVERSION Stimulating 4.50 mIU/L Hormone Specimen Anatomical Collection Method Collection Time Receive d Time (Source) Location / / Volume Laterality 11/08/2011 2:03 PM 2 9:12 ELECTRICAL WIRING LINEMAN PM ELECTRICAL WIRING LINEMAN Arielle Carvajal LAB_1 Performing Organization Address City/[facility] Phon e Number HP CONVERSION documented in this encounter Visit Diagnoses Diagnosis Fatigue Other malaise and fatigue documented in this encounter Care Teams Child Care Development Specialist Relationship Specialty Start Date End Date Unassigned, Provider PCP - General 12/01/00 02/17/[address] [place] [address] documented as of this encounter
--- OUTSIDE RECORDS SUMMARY | 2022-06-30 14:50 | XMS_ITS | Encounter Summary ---
:1985 Author Organization [facility] Address [address], [place] [address] Care Team Providers Name Role Phone Unassigned, Provider Primary Care Provider Unavailable Encounter Details Date Type Department Care Team Description 03/11/2009 Routine [place] Katty Armstrong RN Obstetrics/Gynecolog y [address] [place], [place] [address] Social History Tobacco Use Types Packs/Day Years [...] on filedocumented in this encounter Care Teams Blood Bank Specialist Relationship Specialty Start Date End Date Unassigned, Provider PCP - General 12/01/00 02/17/16 [address] [place] [address] documented as of this encounter
--- OUTSIDE RECORDS SUMMARY | 2022-06-30 14:50 | XMS_ITS | Encounter Summary ---
:1985 Author Organization [facility] Address [address], [place] [address] Care Team Providers Name Role Phone Unassigned, [...] on filedocumented in this encounter Care Teams Shop Router Relationship Specialty Start Date End Date Unassigned, Provider PCP - General 12/01/00 02/17/16 [address] [place] [address] documented as of this encounter
--- OUTSIDE RECORDS SUMMARY | 2022-06-30 14:50 | XMS_ITS | Encounter Summary ---
:1985 Author Organization Replaced by [facility] Address [address] [place] [address] Care Team Providers Name Role Phone Unassigned, Provider Primary Care Provider Unavailable Encounter Details Date Type Department Care Team Description 10/06/2008 PN Conversion Only [place] CONVERSION Katty Armstrong , RN Social History Tobacco Use Types Packs/Day Years Used Date Smoking Tobacco: Never Assessed Sex Assigned at Date Recorded Not on file documented as of this encounter Plan of Treatment Not on filedocumented as of this encounter Procedures Procedure Name Priority Date/Time Associated Comments Diagnosis SEXUALLY TRANSMITTED Routine 10/06/2008 4:34 PM R esults for this DISEASE PROBE HEAD USHER procedure are in the results section. BLOOD GROUP & RH Routine 10/06/2008 3:22 PM Resul ts for this (BLOOD TYPE) HEAD USHER procedure are i n the results section. ANTIBODY SCREEN Routine 10/06/2008 3:22 PM Result s for this HEAD USHER procedure are i n the results section. RUBELLA IGG Routine 10/06/2008 3:22 PM Results f or this HEAD USHER procedure are i n the results section. HIV ANTIBODY Routine 10/06/2008 3:22 PM Results f or this HEAD USHER procedure are i n the results section. RPR BLOOD Routine 10/06/2008 3:22 PM Results f or this HEAD USHER procedure are i n the results section. HEP B SURFACE Routine 10/06/2008 3:22 PM Results for this ANTIGEN, NO REFLEX HEAD USHER procedure are in the results section. COMPLETE BLOOD Routine 10/06/2008 3:22 PM Results for this COUNT-NO DIFF HEAD USHER procedure are in the results section. URINALYSIS Routine 10/06/2008 2:43 PM Results f or this ROUTINE(MICRO IF POS) HEAD USHER proced ure are in the results section. URINALYSIS Routine 10/06/2008 2:43 PM Results f or this MICROSCOPIC HEAD USHER procedure are i n the results section. URINE CULTURE Routine 10/06/2008 2:43 PM Results for this HEAD USHER procedure are i n the results section. ANATOMICAL PATH Routine 10/06/2008 10:46 Results for this LIQUID BASED AM HEAD USHER procedure are i n the results section. documented in this encounter Results Sexually Transmitted Disease Probe (10/06/2008 4:34 PM HEAD USHER) Patholo gist Method Time Signature Sexually SEE TEXT HP CONVERSION Transmitted Disease Probe Comment: Patient: TELLO TERRELL Sexually Trans Disease Probe ?Collected: ??[id number] ??[id number] Source: ENDOCERV ?Processed: ??[id number] ??[id number] ? V Final Report ------ ?[id number] ??[id number] No Chlamydia trachomatis detected by amp lified DNA assay No Neisseria gonorrhoeae detected by amp lified DNA assay [facility] Amplified DNA assay is royce red by the FDA for non-medicolegal diagnostic testing in the adult population. Specimen (Source) Anatomical Collection Method Collection Time Re ceived Time Location / / Volume Laterality 10/06/2008 4:34 PM HEAD USHER Katyt Armstrong RN LAB_1 Performing Organization Address City/State/ZIP Code Phon e Number HP CONVERSION Antibody Screen (10/06/2008 3:22 PM HEAD USHER) athologist Signature N/O BB NEG No normal HP CONVERSION ANTIBODY range SCREEN Specimen (Source) Anatomical Collection Method Collection Time Re ceived Time Location / / Volume Laterality 10/06/2008 3:22 PM HEAD USHER Katty Armstrong RN PN BLOOD BANK ORDERS Performing Organization Address City/State/ZIP Code Phon e Number HP CONVERSION (ABNORMAL) Complete Blood Count-No Diff (10/06/2008 3:22 PM HEAD USHER) [facility] gist Method Time Signature White Blood [...] 32.0 - HP CONVERSION Hemoglobin Conc 36.5 [place] gm/dL RDW 10.9 (L) 11.0 - HP CONVERSION 15.0 % Platelet Count 179 140 - 450 HP CONVERSION k/cmm Specimen (Source) Anatomical Collection Method Collection Time Re ceived Time Location / / Volume Laterality 10/06/2008 3:22 PM HEAD USHER Katty Armstrong RN LAB_1 Performing Organization Address [facility]/ZIP Code Phon e Number HP CONVERSION Blood Group & Rh (Blood Type) (10/06/2008 3:22 PM HEAD USHER) athologist Signature BB BLOOD TYPE O POS No normal HP CONVERSION (BLOOD GROUP & range RH) Specimen (Source) Anatomical Collection Method Collection Time Re ceived Time Location / / Volume Laterality 10/06/2008 3:22 PM HEAD USHER Katty Armstrong RN PN BLOOD BANK ORDERS Performing Organization Address [facility] Code Phon e Number HP CONVERSION Rubella Igg (10/06/2008 3:22 PM HEAD USHER) athologist Signature Rubella IgG Immune Immune HP CONVERSION Specimen (Source) Anatomical Collection Method Collection Time Re ceived Time Location / / Volume Laterality 10/06/2008 3:22 PM HEAD USHER Katty Armstrong RN LAB_1 Performing Organization Address [facility]/ZIP Code Phon e Number HP CONVERSION RPR Blood (10/06/2008 3:22 PM HEAD USHER) P athologist Signature RPR Non Reac Non Reac HP CONVERSION Specimen (Source) Anatomical Collection Method Collection Time Re ceived Time Location / / Volume Laterality 10/06/2008 3:22 PM HEAD USHER Katty Armstrong RN LAB_1 Performing Organization Address [facility] Code Phon e Number HP CONVERSION HIV Antibody (10/06/2008 3:22 PM HEAD USHER) P athologist Signature HIV 1/HIV 2 Non Reac Non Reac HP CONVERSION Specimen (Source) Anatomical Collection Method Collection Time Re ceived Time Location / / Volume Laterality 10/06/2008 3:22 PM HEAD USHER Katty Armstrong RN LAB_1 Performing Organization Address [facility] Code Phon e Number HP CONVERSION Hep B Surface Antigen, No Reflex (10/06/2008 3:22 PM HEAD USHER) Analysis Performed At Patho logist Time Signature Hep B Surf Ag Negative Negative HP CONVERSION Specimen (Source) Anatomical Collection Method Collection Time Re ceived Time Location / / Volume Laterality 10/06/2008 3:22 PM HEAD USHER Katty Armstrong RN LAB_1 Performing Organization Address [facility] Code Phon e Number HP CONVERSION (ABNORMAL) Urine Culture (10/06/2008 2:43 PM HEAD USHER) Patholo gist Method Time Signature Urine Culture SEE TEXT HP CONVERSION (A) Comment: Patient: TELLO TERRELL Culture, Urine ?Collected: ??[id number] ??[id number] Source: Clean Ca ?Processed: ??[id number] ??[id number] ? 1V Final Report ------ ?[id number] ??[id number] 50-100,000 CFU/mL Escherichia coli Susceptibility Testing E COL ??IGANLUCA INTERP: ?S ??AMPICILLIN , AMOX/CLAV ACID, CEFAZOLIN, LEVOFLOXACIN, ?CIPR OFLOXACIN, CEFTRIAXONE, CEFTAZIDIME, GENTAMICIN, ?CEFE PIME, NITROFURANTOIN, TRIMETH-SULFA Specimen (Source) Anatomical Collection Method Collection Time Re ceived Time Location / / Volume Laterality 10/06/2008 2:43 PM HEAD USHER Katty Armstrong RN LAB_1 Performing Organization Address City/State/ZIP Code Phon e Number HP CONVERSION (ABNORMAL) Urinalysis Routine(Micro If Pos) (10/06/2008 2:43 PM HEAD USHER) [facility] gist Method Time Signature Turbidity Hazy (A) [...] Specific 1.015 1.005 - 25 HP CONVERSION [place] Specimen (Source) Anatomical Collection Method Collection Time Re ceived Time Location / / Volume Laterality 10/06/2008 2:43 PM HEAD USHER Katty Armstrong RN LAB_1 Performing Organization Address City/[facility] Code Phon e Number HP CONVERSION (ABNORMAL) Urinalysis Microscopic (10/06/2008 2:43 PM HEAD USHER) [facility] gist Method Time Signature White Blood 0-2/HPF 0 - 3 HP CONVERSION Cells Urine Bacteria Urine Moderate (A) None HP CONVERSIO N Epithelial Few Few /HPF HP CONVERSION Cells Crystals Amorph None HP CONVERSION Specimen (Source) Anatomical Collection Method Collection Time Re ceived Time Location / / Volume Laterality 10/06/2008 2:43 PM HEAD USHER Katty Armstrong RN LAB_1 Performing Organization Address [facility] Code Phon e Number HP CONVERSION Pap Smear (10/06/2008 10:46 AM HEAD USHER) [facility] gist Method Time Signature PAP Smear SEE TEXT No normal HP CONVERSION Liquid Based range Comment: Patient: TELLO TERRELL ? CERVICAL CYTOLOGY REPORT Pathology # ??[id number] ?Date Obtained: [id number] ? Date Received: [id number] CYTOLOGIC IMPRESSION: Negative for intraepithelial lesion or m alignancy. Verified 10/09/08 by: ??KGM ?(electronic signature) ? LEANN TIONAL DATA LMP: CLINICAL HIST LIQUID BASED PAP CERVICAL SPECIMEN ADEQUACY: ?? Satisfactory. ENDOCERVICAL CELLS: ??Present. Specimen (Source) Anatomical Collection Method Collection Time Re ceived Time Location / / Volume Laterality 10/06/2008 10:46 AM HEAD USHER Katty Armstrong RN LAB_1 Performing Organization Address City/State/ZIP Code Phon e Number HP CONVERSION documented in this encounter Visit Diagnoses Not on filedocumented in this encounter Care Teams Nursing Techn Relationship Specialty Start Date End Date Unassigned, Provider PCP - General 12/01/00 02/17/[address] [place] [address] documented as of this encounter
--- OUTSIDE RECORDS SUMMARY | 2022-06-30 14:50 | XMS_ITS | Encounter Summary ---
:1985 Author Organization [facility] Address [address], [place] [address] Care Team Providers Name Role Phone Unassigned, Provider Primary Care Provider Unavailable Reason for Visit Reason Comments DANNY CHAMPAGNE Encounter Details Date Type Department Care Team Description [facility]elle Carvajal (Primary Medicine Dx) [address] [place] [phone] Social History Tobacco Use Types Packs/Day Years [...] Primary documented in this encounter Care Teams Coremaker Helper Relationship Specialty Start Date End Date Unassigned, Provider PCP - General 12/01/00 02/17/[address] [place] [address] documented as of this encounter
--- OUTSIDE RECORDS SUMMARY | 2022-06-30 14:50 | XMS_ITS | Encounter Summary ---
:1985 Author Organization [employer] Address [address], [place] [address] Care Team Providers Name Role Phone Unassigned, Provider Primary Care Provider Unavailable Encounter Details Date Type Department Care Team Description 02/18/2009 Routine Igor Burroughs Obstetrics/[place] [address] [facility] [address] [place] [address] [place] [address] [phone] (Wo rk) Social History Tobacco Use Types [...] on filedocumented in this encounter Care Teams Card Grinder Helper Relationship Specialty Start Date End Date Unassigned, Provider PCP - General 12/01/00 02/17/16 [address] [place] [address] documented as of this encounter
--- OUTSIDE RECORDS SUMMARY | 2022-06-30 14:50 | XMS_ITS | Encounter Summary ---
:1985 Author Organization [facility] Address [address] [place] [address] Care Team Providers Name Role Phone Unassigned, Provider Primary Care Provider Unavailable Encounter Details Date Type Department Care Team Description 11/19/2008 PN Conversion Only [facility] [address] [address] [place] [address] Social History Tobacco Use Types Packs/Day Years Used Date Smoking Tobacco: Never Assessed Sex Assigned at Date Recorded Not on file documented as of this encounter Plan of Treatment Not on filedocumented as of this encounter Procedures Procedure Name Priority Date/Time Associated Diagnosis Comme nts US OB >/= 14 WEEKS Routine 11/19/2008 2:08 PM Res ults for this 0 DAYS, SINGLE CASTING MACHINE OPERATOR HELPER procedure are in FETUS the results section. documented in this encounter Results US OB >/= 14 Weeks 0 Days, Single Fetus (11/19/2008 2:08 PM CASTING MACHINE OPERATOR HELPER) Anatomical Region Laterality Modality Pelvis Other Specimen (Source) Anatomical Location Collection Method / Collectio n Time Received Time / Laterality Volume Impressions 11/19/2008 2:08 PM CASTING MACHINE OPERATOR HELPER : ? 1. ?? Single ?live intraut erine measuring 20 weeks 3 days by this ultrasound. ? 2. ?survey is unr emarkable. ??Small nonspecific echogenic intracardiac focus. [id number]/rr Dictating MD BOWERS, AVERY Ley MD Narrative 11/19/2008 2:08 PM CASTING MACHINE OPERATOR HELPER COMPARISON: ??None. INDICATION: ??Check size and dates. [...] is unremarkable. Small nonspecific echogenic intracardiac focus. [id number]/rr Dictating AVERY CLARK MD Igor Kaufman MD [facility] documented in this encounter Visit Diagnoses Not on filedocumented in this encounter Care Teams Associate Juvenile Court Judge Relationship Specialty Start Date End Date Unassigned, Provider PCP - General 12/01/00 02/17/[address] [place] [address] documented as of this encounter
--- OUTSIDE RECORDS SUMMARY | 2022-06-30 14:50 | XMS_ITS | Encounter Summary ---
:1985 Author Organization [facility] Address [address] [place] [address] Care Team Providers Name Role Phone Unassigned, Provider Primary Care Provider Unavailable Encounter Details Date Type Department Care Team Description 10/22/1989 PN Conversion Only DECORATING MACHINE TENDER [address] [place] [address] Social History Tobacco Use Types Packs/Day Years Used Date Smoking Tobacco: Never Assessed Sex Assigned at Date Recorded Not on file documented as of this encounter Plan of Treatment Not on filedocumented as of this encounter Procedures Procedure Name Priority Date/Time Associated Comments Diagnosis ANC RESULT Routine 10/20/1994 1:10 PM Results f or this CONVERSION DEFAULT SKID ROAD WORKER procedure are in ORDER the results section. documented in this encounter Results Anc Result Conversion Default Order (10/20/1994 1:[address] WORKER) Anatomical Region Laterality Modality Other Specimen (Source) Anatomical Location Collection Method / Collectio n Time Received Time / Laterality Volume Narrative 10/20/1994 1:[address] WORKER CLINICAL DATA: ?COUGH ONE MONTH FINDINGS: ?LINEAR [...] on filedocumented in this encounter Care Teams Marine Extension Agent Relationship Specialty Start Date End Date Unassigned, Provider PCP - General 12/01/00 02/17/[address] [place] [address] documented as of this encounter
--- OUTSIDE RECORDS SUMMARY | 2022-06-30 14:50 | XMS_ITS | Encounter Summary ---
:1985 Author Organization [facility] Address [address], [place] [address] Care Team Providers Name Role Phone Unassigned, Provider Primary Care Provider Unavailable Encounter Details Date Type Department Care Team Description 03/04/2009 Routine [place] Heri Nesbitt MD Obstetrics/Gynecolog y [address] [facility] [address] [place], [place] [id number] [phone] (Wo rk) Social History Tobacco Use Types [...] on filedocumented in this encounter Care Teams Teacher Assistant Relationship Specialty Start Date End Date Unassigned, Provider PCP - General 12/01/00 02/17/16 [address] [place] [address] documented as of this encounter
--- OUTSIDE RECORDS SUMMARY | 2022-06-30 14:50 | XMS_ITS | Encounter Summary ---
:1985 Author Organization [facility] Address [address] [place] [address] Care Team Providers Name Role Phone Unassigned, Provider Primary Care Provider Unavailable Encounter Details Date Type Department Care Team Description 07/02/2012 Lab Visit [facility] [address] [place] [address] Social History Tobacco Use Types Packs/Day [...] on 07/03/2012 at 4:47 PMChanged to Nitrofurantoin L DEPLOYMENT SPECIALIST Miscellaneous - 12/01/2016 2:49 PM CSTNotes Recorded by Arielle Blevins PA-C on 07/03/2012 at 4:47 PMChanged to Nitrofurantoin L DEPLOYMENT SPECIALIST documented in this encounter Plan of [...] Component Value Ref Test Analysis Performed At [facility] Range Method Time Signature Urine Culture HP [...] (ABNORMAL) URINE MICROSCOPIC (07/02/2012 12:08 PM CDT) [facility] Method Time Signature Urine WBC 0-2 0 [...] - 07/02/2012 12:22 PM CDT Performed at [facility], [address] [place] [address] Transcriptions 12/01/2016 2:49 PM CSTNotes Recorded by Arielle Blevins PA-C on 07/03/2012 at 4:47 PMChanged to Nitrofurantoin Arielle Blevins LAB_1 Performing Organization Address City/[facility] Code Phon e Number HP CONVERSION (ABNORMAL) URINALYSIS ROUTINE, MICRO/CULTURE IF POS (07/02/2012 12:08 PM CDT) [facility] Method Time Signature Urine Type Urine:clean [...] U Specific 1.020 1.005 - HP CONVERSION [place] 1.030 Urobilinogen Negative Negative HP CONVERSION Urine Eu/dL Specimen Anatomical Collection Method Collection Time Receive d Time (Source) Location / / Volume Laterality Urine: 07/02/2012 12:08 07/02/2012 PM CDT 12:08 PM CDT Narrative HP CONVERSION - 07/02/2012 12:22 PM CDT Performed at [facility], [address] [place] [address] Transcriptions 12/01/2016 2:49 PM CSTNotes Recorded by Arielle Blevins PA-C on 07/03/2012 at 4:47 PMChanged to Nitrofurantoin Arielle Blevins LAB_1 Performing Organization Address [facility] Phon e Number HP CONVERSION documented in this encounter Visit Diagnoses Diagnosis Dysuria documented in this encounter Care Teams Upholstery Mechanic Relationship Specialty Start Date End Date Unassigned, Provider PCP - General 12/01/00 02/17/[address] [place] [address] documented as of this encounter
--- OUTSIDE RECORDS SUMMARY | 2022-06-30 14:50 | XMS_ITS | Encounter Summary ---
:1985 Author [facility] Address [address], [place] [address] Care Team Providers Name Role Phone Unassigned, Provider Primary Care Provider Unavailable Encounter Details Date Type Department Care Team Description 01/07/2009 Routine Iogr Burroughs Obstetrics/[place] [address] [facility] [address] [place] [address] [place] [address] [phone] (Wo rk) Social History Tobacco Use Types [...] on filedocumented in this encounter Care Teams Rail Car Unloader Relationship Specialty Start Date End Date Unassigned, Provider PCP - General 12/01/00 02/17/16 [address] [place] [address] documented as of this encounter
--- OUTSIDE RECORDS SUMMARY | 2022-06-30 14:50 | XMS_ITS | Encounter Summary ---
:1985 [facility] Address [address] [address] Care Team Providers Name Role Phone Unassigned, Provider Primary Care Provider Unavailable Reason for Visit Reason Comments Rash Cough Pharyngitis Encounter Details Date Type Department Care Team Description 08/19/2013 Office Visit [facility] Mingo Terrell M D Skin lesion (Primary Dx); Medicine [address] Tinea versicolor; [address] [place], [place] [phone] Social History Tobacco Use Types Packs/Day Years [...] Filed: 08/21/131101 Note Time: 08/20/13822 Status: Signed Pinsetter Mechanic Automatic: Mingo Terrell MD (Physician) NAME: TELLO TERRELL MR#: [id number] CSN: [id number] AUTHENTICATING CLINICIAN: Mingo Terrell MD CONFIRM #: [id number] LOC: 4402 CLINIC PROGRESS NOTE DATE OF VISIT: 08/19/2013 : 1985 SUBJECTIVE: A 27-year-old, female. She is here with her daughter. 1. The patient complains about rash in her left lower leg, on the lateral side, for a couple months.She has a grand portage around it. She used blrj-mjr-rjofcnq ringworm cream in the last 3 days, [...] her left lateral foot, she has a grand portage in the size of a quarter. The [...] also was negative, but she was using cwzr-zrg-[id number] medication for depression, anxiety. She will make an appointment and come back. Any concern, back to the clinic. Otherwise, will follow up as above. She agreed. YO:MEDQ C: CONFIRM #: [id number] documented in this encounter Plan of Treatment [...] BETA STREP FOLLOWUP (08/19/2013 5:39 PM CDT) [facility] Method Time Signature Source Throat HP CONVERSION [...] (08/19/2013 5:28 PM CDT) Analysis Performed At [facility] logist Time Signature Strep A Negative Negative HP CONVERSION Antigen Strep A Source Throat: HP CONVERSION Specimen Anatomical Collection Method Collection Time Receive d Time (Source) Location / / Volume Laterality 08/19/2013 5:28 PM 3 5:39 CDT PM CDT Narrative HP CONVERSION - 08/19/2013 5:43 PM CDT Performed at [facility], [address] [place] [address] Mingo Terrell MD LAB_1 Performing Organization Address [facility] Phon e Number HP CONVERSION TAWANNA Prep (08/19/2013 5:00 PM CDT) [facility] gist Method Time Signature TAWANNA Yeast None Seen HP CONVERSION TA[place]ANNA Fungus None Seen HP CONVERSION [place] Pseudo None Seen HP CONVERSION Hypae TAWANNA Source Skin HP CONVERSION Scraping ( Specimen Anatomical Collection Method Collection Time Receive d Time (Source) Location / / Volume Laterality 08/19/2013 5:00 PM 3 5:01 CDT PM CDT Narrative HP CONVERSION - 08/19/2013 5:02 PM CDT Performed at [facility], [address] [place] [address] Mingo Terrell MD LAB_1 Performing Organization Address City/[facility]/ZIP Code Phon e Number HP CONVERSION documented in this encounter Visit Diagnoses Diagnosis Skin lesion - Primary Unspecified disorder of skin and subcuta neous tissue Tinea versicolor Pityriasis versicolor Acute pharyngitis documented in this encounter Care Teams Information Security Officer Relationship Specialty Start Date End Date Unassigned, Provider PCP - General 12/01/00 02/17/16 [address] [place] [address] documented as of this encounter
--- OUTSIDE RECORDS SUMMARY | 2022-06-30 14:50 | XMS_ITS | Encounter Summary ---
:1985 Author Organization [facility] Address [address] [place] [address] Care Team Providers Name Role Phone Unassigned, Provider Primary Care Provider Unavailable Encounter Details Date Type Department Care Team Description 09/30/2008 PN Conversion Only ALLERGIST IMMUNOLOGIST [address] [place] [address] Social History Tobacco Use Types Packs/Day Years Used Date Smoking Tobacco: Never Assessed Sex Assigned at Date Recorded Not on file documented as of this encounter Plan of Treatment Not on filedocumented as of this encounter Visit Diagnoses Not on filedocumented in this encounter Care Teams Plush Dresser Relationship Specialty Start Date End Date Unassigned, Provider PCP - General 12/01/00 02/17/[address] [place] [address] documented as of this encounter
--- OUTSIDE RECORDS SUMMARY | 2022-06-30 14:50 | XMS_ITS | Encounter Summary ---
:1985 Author Organization [facility] Address [address] [place] [address] Care Team Providers Name Role Phone Unassigned, Provider Primary Care Provider Unavailable Encounter Details Date Type Department Care Team Description 01/06/2009 PN Conversion Only [place] [address] [address] [place] [address] Social History Tobacco Use Types Packs/Day Years Used Date Smoking Tobacco: Never Assessed Sex Assigned at Date Recorded Not on file documented as of this encounter Plan of Treatment Not on filedocumented as of this encounter Visit Diagnoses Not on filedocumented in this encounter Care Teams Government Affairs Researcher Relationship Specialty Start Date End Date Unassigned, Provider PCP - General 12/01/00 02/17/[address] [place] [address] documented as of this encounter
--- OUTSIDE RECORDS SUMMARY | 2022-06-30 14:50 | XMS_ITS | Encounter Summary ---
:1985 Author Organization [facility] Address [address] [address] Care Team Providers Name Role Phone Unassigned, Provider Primary Care Provider Unavailable Encounter Details Date Type Department Care Team Description 12/10/2008 Routine [place] Katty Armstrong RN Obstetrics/Gynecolog y [address] [place], [place] [address] Social History Tobacco Use Types Packs/Day Years Used Date Smoking Tobacco: Never Assessed Sex Assigned at Date Recorded Not on file documented as of this encounter Last Filed Vital Signs Vital Sign Reading Time Taken Comments Blood Pressure 108/48 12/10/2008 3:24 PM BOND BROKER Pulse 72 12/10/2008 3:24 PM BOND BROKER Temperature - - Respiratory Rate 18 12/10/2008 3:24 PM BOND BROKER Oxygen Saturation - - Inhaled Oxygen Concentration - - Weight 61.5 kg (135 lb 9.3 oz) 12/10/2008 3:24 PM BOND BROKER C : 61.5kg Height - - Body Mass Index 22.56 11/26/2008 2:28 PM BOND BROKER documented in this encounter Plan of Treatment Not on filedocumented as of this encounter Visit Diagnoses Not on filedocumented in this encounter Care Teams Film Processing Shift Supervisor Relationship Specialty Start Date End Date Unassigned, Provider PCP - General 12/01/00 02/17/16 [address] [place] [address] documented as of this encounter
--- OUTSIDE RECORDS SUMMARY | 2022-06-30 14:50 | XMS_ITS | Encounter Summary ---
:1985 Author Organization [facility] Address [address], [place] [address] Care Team Providers Name Role Phone Unassigned, Provider Primary Care Provider Unavailable Reason for Visit Reason Comments DANNY MUÑOZ Encounter Details Date Type Department Care Team Description 11/08/2011 Office Visit [facility] Arielle Carvajal (Primary Dx); Medicine Plantar oscart [address] [place] [address] Social History Tobacco Use Types Packs/Day Years Used Date Smoking Tobacco: Never Assessed Sex Assigned at Date Recorded Not on file documented as of this encounter Last Filed Vital Signs Vital Sign Reading Time Taken Comments Blood Pressure 121/72 11/08/2011 1:33 PM MACHINE PRESSER Pulse 94 11/08/2011 1:33 PM MACHINE PRESSER Temperature 36.4 ??C (97.5 ??F) 11/08/2011 1:33 PM MACHINE PRESSER Respiratory Rate 16 11/08/2011 1:33 PM MACHINE PRESSER Oxygen Saturation 96% 11/08/2011 1:33 PM MACHINE PRESSER Inhaled Oxygen Concentration - - Weight - [...] does not exercise but 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
--- OUTSIDE RECORDS SUMMARY | 2022-06-30 14:50 | XMS_ITS | Encounter Summary ---
:1985 Author Organization [facility] Address [address] [address] Care Team Providers Name Role Phone Unassigned, Provider Primary Care Provider Unavailable Reason for Visit Reason Comments Patient Calling Back Encounter Details Date Type Department Care Team Description 11/09/2011 Telephone [facility] Arielle Spence Patient Calling Back [address] [place] [address] Social History Tobacco Use [...] further questions or concerns at this time. GE MATE Lillian Means - 11/09/2011 12:30 PM CST Pt calling back for results. Neida Delcid RN - 11/09/2011 8:57 AM CST Left message for patient to call back for results. GE MATE Arielle Carvajal - 11/09/2011 8:50 AM CST [...] on filedocumented in this encounter Care Teams Rounding Machine Tender Relationship Specialty Start Date End Date Unassigned, Provider PCP - General 12/01/00 02/17/[address] [place] [address] documented as of this encounter
--- OUTSIDE RECORDS SUMMARY | 2022-06-30 14:50 | XMS_ITS | Encounter Summary ---
:1985 Author Organization [facility] Address [address], [place] [address] Care Team Providers Name Role Phone Unassigned, Provider Primary Care Provider Unavailable Encounter Details Date Type Department Care Team Description 11/26/2008 Routine Igor Burroughs Obstetrics/[place] [address] [facility] [address] [place] [address] [place] [address] [phone] (Wo rk) Social History Tobacco Use Types Packs/Day Years Used Date Smoking Tobacco: Never Assessed Sex Assigned at Date Recorded Not on file documented as of this encounter Last Filed Vital Signs Vital Sign Reading Time Taken Comments Blood Pressure 102/60 11/26/2008 2:28 PM BISCUIT MACHINE OPERATOR Pulse - - Temperature - - Respiratory Rate - - Oxygen Saturation - - Inhaled Oxygen Concentration - - Weight 60.1 kg (132 lb 7.9 oz) 11/26/2008 2:28 PM C: 60 .1kg BISCUIT MACHINE OPERATOR Height 165.1 cm (5' 5) 11/26/2008 2:28 PM C: 165.1cm BISCUIT MACHINE OPERATOR Body Mass Index 22.05 11/26/2008 2:28 PM BISCUIT MACHINE OPERATOR documented in this encounter Plan of Treatment Not on filedocumented as of this encounter Visit Diagnoses Not on filedocumented in this encounter Care Teams Railway Traction Line Worker Relationship Specialty Start Date End Date Unassigned, Provider PCP - General 12/01/00 02/17/[address] [place] [address] documented as of this encounter
--- OUTSIDE RECORDS SUMMARY | 2022-06-30 14:50 | XMS_ITS | Encounter Summary ---
:1985 Author Organization [facility] Address [address] [place] [address] Care Team Providers Name Role Phone Unassigned, Provider Primary Care Provider Unavailable Reason for Visit Reason Comments Other Encounter Details Date Type Department Care Team Description 03/29/2009 Telephone Igor Burroughs, Oth er Obstetrics/Gynecolog y [address] [place] [address] [place] [address] [phone] (Wo rk) Social History Tobacco Use Types Packs/Day Years Used Date Smoking Tobacco: Never Assessed Sex Assigned at Date Recorded Not on file documented as of this encounter [facility], Message - 03/29/2009 3:56 PM CDT Phone Note filed by [employer] at 02/10/11330 Author: [employer] Service: (none) Author Type: (none) Filed: 02/10/11330 Note Time: 03/29/091555 Status: Signed Pulp[employer] Contractor: [employer] (Resource) Front Line Sx Call Caller Name/Relationship:self Primary Metalizer:sabal Symptom or request?pt delivered on 2jun, was in [place] last night because was having pain, advsd pt to be seen by obg in 1-2 days Is appointment scheduled & when? Ice Cream Vendor:urban Schneider call back number:[phone] Is it OK to leave a confidential message on this voicemail? *[id number] Created on 29Mar2009 3:56pm by RIYA SANTOS On 29Mar2009 4:17pm CHOLO YOON wrote: Please call pt. at [phone], ok to leave msg. Delivered 6 normal vaginal delivery. Low back pain started 03/25. went to ED last night, pain ranging from 4-8. episiotomy pain also. Taking dilaudid 2mg, flexerol and stool softner now. On 29Mar2009 4:27pm IGOR STEVENSON wrote: Spoke with pt. Acknowledged by IGOR STEVENSON on 4:27pm F BOX FINISHER documented in this encounter Plan of Treatment Not on filedocumented as of this encounter Visit Diagnoses Not on filedocumented in this encounter Care Teams Stabber Relationship Specialty Start Date End Date Unassigned, Provider PCP - General 12/01/00 02/17/[address] [place] [address] documented as of this encounter
--- OUTSIDE RECORDS SUMMARY | 2022-06-30 14:50 | XMS_ITS | Encounter Summary ---
:1985 Author Organization [facility] Address [address] [address] Care Team Providers Name Role Phone Unassigned, Provider Primary Care Provider Unavailable Reason for Visit Reason Comments LAB RESULTS Encounter Details Date Type Department Care Team Description 07/03/2012 Telephone [facility] Arielle Spence LAB RESULTS [address] [place] [address] Social History Tobacco Use Types Packs/Day [...] verbalized understanding. Will discontinue the Bactrim and fruit picker machine operator the script tonight for the Nitrofurantoin. Arielle [...] on filedocumented in this encounter Care Teams Telephone Maintenance Mechanic Relationship Specialty Start Date End Date Unassigned, Provider PCP - General 12/01/00 02/17/16 [address] [place] [address] documented as of this encounter
--- OUTSIDE RECORDS SUMMARY | 2022-06-30 14:50 | XMS_ITS | Encounter Summary ---
:1985 Author Organization [facility] Address [address] [place] [address] Care Team Providers Name Role Phone Unassigned, Provider Primary Care Provider Unavailable Encounter Details Date Type Department Care Team Description 03/04/2009 [place] [address] [address] [place] [address] [address] [place] [phone] (Wo rk) Social History Tobacco Use Types [...] 2:22 PM CDT) [facility] Time Signature Culture Strep SEE TEXT HP CONVERSION Screen Other Source Comment: Patient: TELLO TERRELL Culture Strep Scr Other Source ?Collected: ??[id number] ??[id number] Source: Vag/Rect ?Processed: ??[id number] ??[id number] ? V Final Report ------ ?[id number] ??[id number] No group A or B Streptococcus isolated Specimen (Source) Anatomical Collection Method Collection Time Re ceived Time Location / / Volume Laterality 03/04/2009 2:22 PM CDT Heri Nesbitt MD LAB_1 Performing Organization Address City/State/ZIP Code Phon e Number HP CONVERSION documented in this encounter Visit Diagnoses Not on filedocumented in this encounter Care Teams Advertising Campaign Manager Relationship Specialty Start Date End Date Unassigned, Provider PCP - General 12/01/00 02/17/16 [address] [place] [address] documented as of this encounter
--- OUTSIDE RECORDS SUMMARY | 2022-06-30 14:50 | XMS_ITS | Encounter Summary ---
:1985 [facility] Address [address] [address] Care Team Providers Name Role Phone Unassigned, Provider Primary Care Provider Unavailable Encounter Details Date Type Department Care Team Description 10/06/2008 Initial Katty Odom, RN Obstetrics/Gynecolog y [address] [place] [address] Social History Tobacco Use Types Packs/Day Years Used Date Smoking Tobacco: Never Assessed Sex Assigned at Date Recorded Not on file documented as of this encounter Last Filed Vital Signs Vital Sign Reading Time Taken Comments Blood Pressure 90/70 10/06/2008 2:29 PM FIXED INCOME ANALYST Pulse - - Temperature - - Respiratory Rate - - Oxygen Saturation - - Inhaled Oxygen Concentration - - Weight 57.2 kg (125 lb 15.9 oz) 10/06/2008 2:29 PM C: 5 7.2kg FIXED INCOME ANALYST Height 165.1 cm (5' 5) 10/06/2008 2:29 PM C: 165.1cm FIXED INCOME ANALYST Body Mass Index 20.97 10/06/2008 2:29 PM FIXED INCOME ANALYST documented in this encounter Progress Notes Katty Armstrong APRN, CNP - 10/06/2008 12:01 AM CST Progress Notes signed by Katty Armstrong APRN, CNP at 10/08/08 0821 Author: BALAJI Kwan Service: (none) Author Type: Nurse Practitioner Filed: 02/11/11 0917 Note Time: 10/06/08 0001 Status: Signed Test Skein Winder: BALAJI Kwan (Nurse Practitioner) New OB visit Subjective: Betty is a 23 year old female who presents to clinic for new OB exam. LMP sometime in early 06/29. She also had one day of very light spotting in early July. Menstrual interval of 28 days. Positive testing the first week of August. She was seen [facility] and had an non-diagnostic ultrasound performed [...] and pneumothorax. Had varicella as a child. 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 Denies history of abnormal pap smears or STDs. 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 She is not , but the father [...] 45 minutes, total education time 30. *SH~DNS~newOB D INCOME ANALYST documented in this encounter Plan of Treatment Not on filedocumented as of this encounter Visit Diagnoses Not on filedocumented in this encounter Care Teams Salt Washer Harvesting Station Relationship Specialty Start Date End Date Unassigned, Provider PCP - General 12/01/00 02/17/[address] [place] [address] documented as of this encounter
--- OUTSIDE RECORDS SUMMARY | 2022-06-30 14:50 | XMS_ITS | Encounter Summary ---
:1984 Author Organization [facility] Address [address] [place] [address] Care Team Providers Name Role Phone Unassigned, Provider Primary Care Provider Unavailable Encounter Details Date Type Department Care Team Description 02/04/2009 PN Conversion Only LA CROSSE Igor Montgomery [address] [facility] [place] [place] [address] [address] [place], [place] [address] (Wo rk) Social History [...] TELLO TERRELL Culture Strep Screen, Throat ?Collected: ??[id number] ??[id number] Source: Throat ?Processed: ??[id number] ??[id number] Final Report ------ ?[id number] ??[id number] No beta hemolytic Strep group A isolated . Specimen (Source) Anatomical Collection Method Collection Time Re ceived Time Location / / Volume Laterality 02/04/2009 2:05 PM CDT Igor Kaufman MD LAB_1 Performing Organization Address City/State/ZIP Code Phon e Number HP CONVERSION documented in this encounter Visit Diagnoses Not on filedocumented in this encounter Care Teams Dental Equipment Technician Relationship Specialty Start Date End Date Unassigned, Provider PCP - General 12/01/00 02/17/[address] [place] [address] documented as of this encounter
--- OUTSIDE RECORDS SUMMARY | 2022-06-30 14:50 | XMS_ITS | Encounter Summary ---
:1984 Author Organization [facility] Address [address], [place] [address] Care Team Providers Name Role Phone Unassigned, Provider Primary Care Provider Unavailable Reason for Visit Reason Comments Back Pain WART, PLANTAR Encounter Details Date Type Department Care Team Description 07/02/2012 Office Visit Adiel Mckinley Arielle Carvajal UTI (u rinary tract infection); Medicine Plantar wart; [address] Need for diphtheria-tetanus- pertussis (Tdap) vaccine; [place], [place] Need for hepat itis vaccination; [address] Need for influenza vaccinati on; [phone] Dysuria Social History Tobacco Use Types Packs/Day [...] Neg - Trace (mg/dL) ??? U Specific [place] 1.020 1.005-1.030 ??? Urobilinogen Urine Negative Negative [...] not specif ied Plantar wart Need for zebumlouvn-pyqkcye-ouuhxhrsy (T dap) vaccine Need for prophylactic vaccination with c ombined apuagjtdjd-vlthxzn-ybrhsibkw (DTP) vaccine Need for hepatitis vaccination Need for prophylactic vaccination and in oculation against viral hepatitis Need for influenza vaccination Need for prophylactic vaccination and in oculation against influenza Dysuria documented in this encounter Care Teams Search Manager Relationship Specialty Start Date End Date Unassigned, Provider PCP - General 12/01/00 02/17/[address] [place] [address] documented as of this encounter
== END 2022-06-30 14:48 | disposition home or self-care (01) ==
LOC: NFLDREF 14:48
PROVIDERS: PCP Obstetrics & Gynecology; Visit Provider Registered Nurse
DX: Z34.93 Encounter for supervision of normal pregnancy, unspecified, third trimester (principal); Z3A.33 33 weeks gestation of pregnancy
CPT/HCPCS: 87086

== ENCOUNTER 2022-07-14 11:45 | Outpatient (CLI) | payer BC, SELFPAY ==
--- OUTSIDE RECORDS SUMMARY | 2022-07-14 12:16 | XMS_ITS | Encounter Summary ---
:1984 Author Organization [employer] Address [address] [address] Care Team Providers Name Role Phone LopezVinnyRoselyndonald Lynn PA-C Primary Care Provider Reason for Visit Reason Comments Dysuria couple day, blood in urine a nd when wiping Encounter Details Date Type Department Care Team Description 06/26/2018 Office Visit [facility] Jarett Gutierrez MD Acute cystitis with hematuria (Primary D x); Medicine [address] [place] [address] Viral upper respiratory tract infection; [address] [place], [place] Dysuria; [place] [address] Encounter for test, result unk nown [phone] (Wo rk) Social History Tobacco Use Types [...] Body Mass Index 20.03 12/06/2017 9:54 AM BUTCHER documented in this encounter Patient Instructions Patient [...] can you learn more? 1. Go to [employer] or [employer]. 2. Enter K848 in the search box. Current as of: March 02, 2017 Content Version: 11.7 ?? [id number] [employer], [employer]. 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 Smoking status: [...] - Trace mg/dL Final ??? U Specific [place] 06/26/2018 1.020 1.005 - 1.030 Final ??? [...] - 06/26/2018 2:44 PM CDT Performed at [facility], [address] [place] [address] CLIA number [id number] Jarett Gutierrez MD LAB_1 Performing Organization Address [facility] Phon e Number PN SOFT [address] [place] [address] (ABNORMAL) Urine Microscopic (06/26/2018 2:05 PM CDT) [...] - 06/26/2018 2:19 PM CDT Performed at [facility], [address] [place] [address] CLIA number [id number] Jarett Gutierrez MD LAB_1 Performing Organization Address [facility] Phon e Number PN SOFT [address] [place] [address] (ABNORMAL) Urine Culture (06/26/2018 2:05 PM CDT) [...] - 06/27/2018 8:58 PM CDT Performed at [facility], [address] [place] [address], CLIA Number [id number] Jarett Gutierrez MD LAB_1 Performing Organization Address [facility] Phon e Number PN SOFT [address] [place], [place] [address] [phone] (ABNORMAL) Urinalysis Routine, Micro/Culture if Pos (06/26/2018 2:05 PM CDT) [facility] Method Time Signature Urine Type URINE:clean [...] U Specific 1.020 1.005 - PN SOFT [place] 1.030 Urobilinogen Negative Negative PN SOFT Urine Eu/dL Specimen (Source) Anatomical Collection Method Collection Time Re ceived Time Location / / Volume Laterality Urine: 06/26/2018 2:05 PM CDT Narrative PN SOFT - 06/26/2018 2:11 PM CDT Performed at [facility], [address] [place] [address] CLIA number [id number] Jarett Gutierrez MD LAB_1 Performing Organization Address [facility] Phon e Number PN SOFT [address] [place] [address] documented in this encounter Visit Diagnoses Diagnosis Acute cystitis with hematuria - Primary Acute cystitis Viral upper respiratory tract infection Acute upper respiratory infections of un specified site Dysuria Encounter for test, result unk nown documented in this encounter Care Teams Tobacco Educator Relationship Specialty Start Date End Date Roselyn Marroquin PA-C PCP - General Physician Shipping And Receiving Coordinator 08/09/16 [address] [place] [address] documented as of this encounter
--- OUTSIDE RECORDS SUMMARY | 2022-07-14 12:16 | XMS_ITS | Encounter Summary ---
:1984 Author Organization [facility] Address [address] [place] [address] Care Team Providers Name Role Phone Roselyn Marroquin PA-C Primary Care Provider Encounter Details Date Type Department Care Team Description 09/26/2019 Lab Visit [facility] Dysuria; [address] Hematuria, [place] [address] Social History Tobacco Use [...] 09/26/2019 3:48 PM Dysuria Results for this RESEARCH QUALITY ASSURANCE SPECIALIST Hematuria, procedure are i n microscopic the results section. AUTOMATED URINALYSIS Routine 09/26/2019 3:48 PM Dysuria R esults for this DIPSTICK POCT RESEARCH QUALITY ASSURANCE SPECIALIST procedure are in the results section. documented in this encounter Results (ABNORMAL) Urine Culture (09/26/2019 3:48 PM RESEARCH QUALITY ASSURANCE SPECIALIST) Component Value Ref Test Method Analysis Performed Patholog ist Range Time At Signature Urine Growth (A) 09/28/2019 [facility] Culture 10:34 AM [facility]OS[facility]ITAL RESEARCH QUALITY ASSURANCE SPECIALIST Urine 10,000 - 50,000 GIANLUCA 09/28/2019 [facility] Culture CFU/mL SENSITIVITY 10:34 AM [facility] Staphylococcus RESEARCH QUALITY ASSURANCE SPECIALIST saprophyticus Specimen Anatomical Collection Method Collection Time Receive d Time (Source) Location / / Volume Laterality Urine URINE SPECIMEN Non-blood 09/26/2019 3:48 PM 019 3:48 COLLECTION, CLEAN Collection / RESEARCH QUALITY ASSURANCE SPECIALIST PM RESEARCH QUALITY ASSURANCE SPECIALIST CATCH / Unknown Unknown [facility] - 09/28/2019 10:[address] Routine testing of urine isolates of Sta phylococcus saprophyticus is not advised, because infections respond to concentrat ions achieved in urine of antimicrobial agents commonly used to treat acute, unc omplicated UTIs (eg, nitrofurantoin, trimethoprim ?? sulfamethoxazole, or a f luoroquinolone). Percy Gutierrez PA-C LAB_1 Performing Organization Address City/State/ZIP Code Phon e Number [address] [address] (ABNORMAL) Urine Dipstick NPT (09/26/2019 3:48 PM RESEARCH QUALITY ASSURANCE SPECIALIST) [facility] gist Method Time Signature Glucose Urine Negative Negative 09/26/2019 [facility] Qual (mg/dL) 3:55 PM RESEARCH QUALITY ASSURANCE SPECIALIST Bilirubin Negative Negative 09/26/2019 [facility] Urine 3:55 PM RESEARCH QUALITY ASSURANCE SPECIALIST Ketones, Negative Negative 09/26/2019 [facility] Urine (mg/dL) 3:55 PM RESEARCH QUALITY ASSURANCE SPECIALIST Specific 1.015 1.005 - 09/26/2019 [facility] [place], 1.030 3:55 PM RESEARCH QUALITY ASSURANCE SPECIALIST Urine Blood, Urine Trace Neg/Trace 09/26/2019 [facility] 3:55 PM RESEARCH QUALITY ASSURANCE SPECIALIST PH Urine 7.0 5.0 - 8.0 09/26/2019 [facility] 3:55 PM RESEARCH QUALITY ASSURANCE SPECIALIST Protein, Trace Neg/Trace 09/26/2019 [facility] Urine Qual 3:55 PM RESEARCH QUALITY ASSURANCE SPECIALIST (mg/dL) Urobilinogen, 0.2 <2.0 09/26/2019 [facility] Urine (EU/dL) 3:55 PM RESEARCH QUALITY ASSURANCE SPECIALIST Nitrite Urine Negative Negative 09/26/2019 [facility] 3:55 PM RESEARCH QUALITY ASSURANCE SPECIALIST Leukocyte Large (A) Negative 09/26/2019 [facility] Est. 3:55 PM RESEARCH QUALITY ASSURANCE SPECIALIST Urine Color Yellow Straw-Yellow 09/26/2019 [facility] 3:55 PM RESEARCH QUALITY ASSURANCE SPECIALIST Urine Clarity Hazy (A) Clear 09/26/2019 [facility] 3:55 PM RESEARCH QUALITY ASSURANCE SPECIALIST Specimen Anatomical Collection Method Collection Time Receive d Time (Source) Location / / Volume Laterality Urine URINE SPECIMEN Non-blood 09/26/2019 3:48 PM 019 3:48 COLLECTION, CLEAN Collection / RESEARCH QUALITY ASSURANCE SPECIALIST PM RESEARCH QUALITY ASSURANCE SPECIALIST CATCH / Unknown Unknown Percy Gutierrez PA-C LAB_1 Performing Organization Address City/State/ZIP Code Phon e Number [facility] [address] [place] [phone] [facility] [address] [place] [address] [address] [phone] documented in this encounter Visit Diagnoses Diagnosis Dysuria Hematuria, microscopic Microscopic hematuria documented in this encounter Care Teams Pottery Machine Operator Relationship Specialty Start Date End Date Roselyn Marroquin PA-C PCP - General Physician Oracle Technical Developer 08/09/16 [address] [place] [address] documented as of this encounter
--- OUTSIDE RECORDS SUMMARY | 2022-07-14 12:16 | XMS_ITS | Encounter Summary ---
:1984 Author Organization [facility] Address [address] [place] [address] Care Team Providers Name Role Phone Roselyn Marroquin PA-C Primary Care Provider Reason for Visit Reason Onset Date Comments Medication Questions 08/09/2016 seeking clarity on medication's directions Encounter Details Date Type Department Care Team Description 08/09/2016 Telephone [place] [facility] Roselyn Marroquin, Medicat ion Questions Medicine [place] [address] [address] [facility] medication's directions [place], [place] [address] ) [address] [phone] Social History Tobacco Use Types Packs/Day Years [...] on filedocumented in this encounter Care Teams Rn Documentation Specialist Relationship Specialty Start Date End Date Roselyn Marroquin PA-C PCP - General Physician Neurology Epilepsy Physician 08/09/16 [address] [place] [address] documented as of this encounter
--- OUTSIDE RECORDS SUMMARY | 2022-07-14 12:16 | XMS_ITS | Encounter Summary ---
:1984 Author Organization [facility] Address [address], [place] [address] Care Team Providers Name Role Phone Roselyn Marroquin PA-C Primary Care Provider Reason for Visit Reason Comments COLPOSCOPY Encounter Details Date Type Department Care Team Description 09/05/2016 Procedure Visit [facility] Igor Stevenson COLPOSCOPY Services-MILITARY EXCHANGE WIRELESS MANAGER MD Tucker [address] [place] [address], [address] [place] [address] [address] [place] [address] [place], [place] [phone] (Wo rk) [address] [phone] Social History Tobacco Use Types Packs/Day Years [...] Notes Igor Stevenson - 09/05/2016 2:20 PM TRANSPORTATION CLERK Addended by: IGOR STEVENSON on: 09/05/2016 02:20 PM Modules accepted: Orders SPORTATION CLERK Igor Stevenson - 09/05/2016 1:38 PM CST [...] findings. Post biopsy instructions given to patient. SPORTATION CLERK Igor Stevenson - 09/05/2016 1:35 PM TRANSPORTATION CLERK Quick Note: Patient notified SPORTATION CLERK documented in this encounter Plan of Treatment Not on filedocumented as of this encounter Procedures Procedure Name Priority Date/Time Associated Comments Diagnosis CLINIC OBTAINED Routine 09/05/2016 2:33 PM ASCUS with positive Results for this ANATOMICAL PATHOLOGY TRANSPORTATION CLERK high risk HPV proced ure are in cervical the results section. SURGICAL BONY GROVER Routine 09/05/2016 2:33 PM Re sults for this BLANCHARD TRANSPORTATION CLERK procedure are i n the results section. POCT URINE Routine 09/05/2016 1:15 PM Encounter for Results for this TRANSPORTATION CLERK test, procedure ar e in result unknown the results section. documented in this encounter Results Pathology Report (09/05/2016 2:33 PM TRANSPORTATION CLERK) Specimen (Source) Anatomical Collection Method Collection Time Re ceived Time Location / / Volume Laterality 09/05/2016 2:33 PM TRANSPORTATION CLERK Narrative PN SOFT - 09/07/2016 10:36 AM TRANSPORTATION CLERK FINAL SURGICAL PATHOLOGY REPORT Pathology #: [id number] ? Date Obtained: 09/05/2016 ?Date Received: 09/06/2016 [...] MICROSCOPIC DESCRIPTION: Microscopic examination performed Performed at [facility] [address] [place] [address] Igor Stevenson MD LAB_1 Performing Organization Address [facility] Phon e Number PN SOFT [address] [place] [address] Clinic Obtained Tissue [TIS] (09/05/2016 2:33 PM TRANSPORTATION CLERK) P athologist Signature CLINIC Received PN SOFT OBTAINED TISSUE Specimen Anatomical Collection Method Collection Time Receive d Time (Source) Location / / Volume Laterality 09/05/2016 2:33 PM 6 2:32 TRANSPORTATION CLERK AM TRANSPORTATION CLERK Narrative PN SOFT - 09/06/2016 2:33 AM TRANSPORTATION CLERK Performed at [facility], [address] [place] [address] CLIA number [id number] Igor Stevenson MD LAB_1 Performing Organization Address City/[facility] Phon e Number PN SOFT [address] [place] [address] POCT urine (09/05/2016 1:15 PM TRANSPORTATION CLERK) [facility] gist Method Time Signature Urine Negative PN EXTERNAL Test - POC LAB-SEE SCANNED DOCUMENT Control Line Yes PN EXTERNAL Present, Clear LAB-SEE Background - SCANNED Internal DOCUMENT control Cartridge Lot# [id number] PN EXTERNAL LAB-SEE SCANNED DOCUMENT Comment: exp: Specimen (Source) Anatomical Collection Method Collection Time Re ceived Time Location / / Volume Laterality Urine specimen 09/05/2016 1:15 PM (specimen) TRANSPORTATION CLERK Igor Stevenson MD PN POINT OF CARE TESTS Performing Organization Address City/State/ZIP Code Phon e Number PN EXTERNAL LAB-SEE SCANNED DOCUMENT documented in this encounter Visit Diagnoses Diagnosis 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
--- OUTSIDE RECORDS SUMMARY | 2022-07-14 12:16 | XMS_ITS | Encounter Summary ---
:1984 Author Organization [facility] Address [address], [place] [address] Care Team Providers Name Role Phone LopezVinnyRoselyndonald Lynn PA-C Primary Care Provider Encounter Details Date Type Department Care Team Description 08/09/2016 Lab Visit [facility] Urinary frequency [address] [place] [address] Social History Tobacco Use [...] Hold for Culture (08/09/2016 1:39 PM CDT) [facility] Method Time Signature Urine Type URINE:clean [...] U Specific 1.020 1.005 - PN SOFT [place] 1.030 Urobilinogen Negative Negative PN SOFT Urine Eu/dL Turbidity Clear Clear PN SOFT Color Yellow PN SOFT Specimen Anatomical Collection Method Collection Time Receive d Time (Source) Location / / Volume Laterality 08/09/2016 1:39 PM 6 1:39 CDT PM CDT Narrative PN SOFT - 08/09/2016 1:45 PM CDT Performed at [facility], [address] [place] [address] CLIA number [id number] Roselyn Marroquin PA-C LAB_1 Performing Organization Address City/State/ZIP Code Phon e Number PN SOFT [address] [place] [address] documented in this encounter Visit Diagnoses Diagnosis Urinary frequency documented in this encounter Care Teams Costumer Relationship Specialty Start Date End Date Roselyn Marroquin PA-C PCP - General Physician Periodicals Clerk 08/09/16 [address] [place] [address] documented as of this encounter
--- OUTSIDE RECORDS SUMMARY | 2022-07-14 12:16 | XMS_ITS | Encounter Summary ---
:1984 Author Organization [facility] Address [address] [place] [address] Care Team Providers Name Role Phone Unassigned, Provider Primary Care Provider Unavailable Reason for Visit Reason Comments Back Pain Encounter Details Date Type Department Care Team Description 09/07/2015 Office Visit [facility] Juaquin Corona Bilater al low back Medicine MD pain, with sciatica [address] presence unspecified [place], [place] (Primary Dx) [address] [phone] Social History Tobacco Use Types Packs/Day Years Used Date Smoking Tobacco: Never Assessed Sex Assigned at Date Recorded Not on file documented as of this encounter Last Filed Vital Signs Vital Sign Reading Time Taken Comments Blood Pressure 108/68 09/07/2015 10:23 AM ORTHOPEDIC SURGEON Pulse 80 09/07/2015 10:23 AM ORTHOPEDIC SURGEON Temperature - - Respiratory Rate - - Oxygen Saturation - - Inhaled Oxygen Concentration - - Weight 52.4 kg (115 lb 8 oz) 09/07/2015 10:23 AM ORTHOPEDIC SURGEON Height 167.6 cm (5' 6) 09/07/2015 10:23 AM ORTHOPEDIC SURGEON Body Mass Index 18.64 09/07/2015 10:23 AM ORTHOPEDIC SURGEON documented in this encounter Progress Notes Juaquin [...] Past Surgical History Procedure Laterality Date ??? [place] tooth extraction ??? Pleural scarification chest tube [...] pap. Juaquin Corona MD 10:48 AM 09/07/2015 OPEDIC SURGEON documented in this encounter Plan of Treatment Not on filedocumented as of this encounter Visit Diagnoses Diagnosis Bilateral low back pain, with sciatica p resence unspecified ([facility]) - Primary documented in this encounter Care Teams Machine Burrer Relationship Specialty Start Date End Date Unassigned, Provider PCP - General 12/01/00 02/17/[address] [place] [address] documented as of this encounter
--- OUTSIDE RECORDS SUMMARY | 2022-07-14 12:16 | XMS_ITS | Encounter Summary ---
:1984 Author Organization [facility] Address [address] [place] [address] Care Team Providers Name Role Phone LopezRoselyn Shane PERAZA Primary Care Provider Reason for Visit Reason Comments PAP,ABNORMAL ASC-H, HPV+ non 16-18 Encounter Details Date Type Department Care Team Description 12/19/2017 Telephone Cervical Cancer Christine Johnson MD PAP,ABNORMAL (ASC-H, Screening and [address] HPV+ non 16-18) Management [facility] 5th [address] [place] [address] [place] [address] [phone] Social History Tobacco Use Types Packs/Day Years [...] screening on 12/06/[address] Corona at [facility] Pap result(s): ASC-H, HPV+ (non 16/18), hx abnormal Colposcopy recommended per guidelines. Informed patient of results. Scheduled colposcopy. Patient given verbal preparation instructions forprocedure. Sent follow up [employer] message. Future Appointments Date Time Provider Department Center 12/25/2017 1:00 PM Igor Kaufman MD [facility] PN POE FR Routing to provider as an FYI. M DUMPER documented in this encounter Plan of Treatment Not on filedocumented as of this encounter Visit Diagnoses Not on filedocumented in this encounter Care Teams Security Intern Relationship Specialty Start Date End Date Roselyn Marroquin PA-C PCP - General Physician Dynamo Tender 08/09/16 [address] [place] [address] documented as of this encounter
--- OUTSIDE RECORDS SUMMARY | 2022-07-14 12:16 | XMS_ITS | Encounter Summary ---
:1985 Author Organization [facility] Address [address], [place] [address] Care Team Providers Name Role Phone LopezRoselyn Shane PERAZA Primary Care Provider Reason for Visit Reason Comments Dental Conversion [facility] to [place] convers ion Encounter Details Date Type Department Care Team Description 03/29/2017 Dental Conversion [facility] Fatmata Sánchez, [facility] [address] [facility] [address] [place], [place] [address] [place], [place] [phone] [address] Social History Tobacco Use Types Packs/Day Years [...] on filedocumented in this encounter Care Teams Apron Cleaner Relationship Specialty Start Date End Date Roselyn Marroquin PA-C PCP - General Physician Electrical Assistant 08/09/16 [address] [place] [address] documented as of this encounter
--- OUTSIDE RECORDS SUMMARY | 2022-07-14 12:16 | XMS_ITS | Encounter Summary ---
:1985 Author Organization [facility] Address [address] [place] [address] Care Team Providers Name Role Phone LopezRoselyn STU Primary Care Provider Reason for Referral Procedure/Equipment (Routine) - Incomplete Specialty Diagnoses / Procedures Referred By Contact Refer red To Contact Diagnoses Acute left ankle pain Aung Saeed PA-C Procedures XR Foot 3+ Views/Ankle 2 Views Series Lt [address] [facility] E [place] [id number] Referral ID Status Reason Start Date Expiration Date Visits V isits Requested Authorized [id number] Incomplete 05/29/2018 08/28/2019 1 1 Reason for Visit Reason Comments ANKLE PAIN Encounter Details Date Type Department Care Team Description 05/29/2018 Hospital Encounter [place] [facility] Aung Saeed Ac dustin left ankle pain; Esteban Osorio PA-C Sprain of left ankle, unspecified ligame nt, initial encounter [address] [facility] [address] [place] [address] E [phone] [place] [address] Social History Tobacco Use Types Packs/Day Years [...] 12:00 PM CDT NAME: TELLO TERRELL MR#: [id number] CSN: [id number] AUTHENTICATING CLINICIAN: Aung Saeed PA-C CONFIRM #: [id number] LOC: 520 URGENT CARE PROGRESS NOTE DATE [...] it hurts. 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 SSK:JACOBY C: CONFIRM #: [id number] documented in this encounter Plan of Treatment [...] out. documented in this encounter Care Teams Automotive Service Management Teacher Relationship Specialty Start Date End Date Roselyn Marroquin PA-C PCP - General Physician Digital Recruiter 08/09/16 [address] [place] [address] documented as of this encounter
--- OUTSIDE RECORDS SUMMARY | 2022-07-14 12:16 | XMS_ITS | Encounter Summary ---
:1985 Author Organization [facility] Address [address] [place] [address] Care Team Providers Name Role Phone Needs Pcp, Assignment Primary Care Provider Reason for Visit Reason Onset Date Comments Other 07/31/2016 Encounter Details Date Type Department Care Team Description 07/31/2016 Telephone CODING DEPT ONLY 5050 Needs Pcp, Assignment Other [facility]ILY [facility]ICINE [place] [facility] [address] [place] [address] [address] Social History Tobacco Use Types Packs/Day Years [...] on filedocumented in this encounter Care Teams Magazine Supervisor Relationship Specialty Start Date End Date Needs Pcp, Assignment PCP - General 02/18/16 08/08/16 [place] [address] documented as of this encounter
--- OUTSIDE RECORDS SUMMARY | 2022-07-14 12:16 | XMS_ITS | Encounter Summary ---
:1985 Author Organization [facility] Address [address] [address] Care Team Providers Name Role Phone Roselyn Marroquin PA-C Primary Care Provider Encounter Details Date Type Department Care Team Description 01/18/2019 Orders Only [facility] Mariam Herrera, [facility] Dentistry [address] [facility] [address] [place] [address] [place], [place] [address] [phone] Social History Tobacco Use Types Packs/Day Years [...] on filedocumented in this encounter Care Teams Candy Supervisor Relationship Specialty Start Date End Date Roselyn Marroquin PA-C PCP - General Physician Hydraulic Rock Drill Operator 08/09/16 [address] [place] [address] documented as of this encounter
--- OUTSIDE RECORDS SUMMARY | 2022-07-14 12:16 | XMS_ITS | Encounter Summary ---
:1985 Author Organization [facility] Address [address], [place] [address] Care Team Providers Name Role Phone Roselyn Marroquin PA-C Primary Care Provider Encounter Details Date Type Department Care Team Description 12/06/2017 Lab Visit [facility] Well adult exam [address] [place] [address] Social History Tobacco Use [...] - 12/06/2017 1:00 PM CST Letter sent. V BELT BUILDER documented in this encounter Plan of Treatment [...] Volume Laterality 12/06/2017 12/06/2017 11:2 5 AM V BELT BUILDER Narrative PN SOFT - 12/06/2017 12:35 PM V BELT BUILDER Performed at [facility], [address] [place] [address] CLIA number [id number] Juaquin Corona MD LAB_1 Performing Organization Address City/[facility] Phon e Number PN SOFT [address] [place] [address] Glucose (12/06/2017) P athologist Signature Lab Glucose 96 70 - 100 PN SOFT mg/dL Comment: The stated glucose range is for the fast ing state. Non-fasting glucose range is 70-180 mg/d L Specimen (Source) Anatomical Collection Method Collection Time Re ceived Time Location / / Volume Laterality 12/06/2017 12/06/2017 11:2 5 AM V BELT BUILDER Narrative PN SOFT - 12/06/2017 12:35 PM V BELT BUILDER Performed at [facility], [address] [place] [address] CLIA number [id number] Juaquin Corona MD LAB_1 Performing Organization Address City/[facility] Phon e Number PN SOFT [address] [place] [address] documented in this encounter Visit Diagnoses Diagnosis Well adult exam Routine general medical examination at a health care facility documented in this encounter Care Teams Underlay Stitcher Relationship Specialty Start Date End Date Roselyn Marroquin PA-C PCP - General Physician Supply Chain Technician 08/09/16 [address] [place] [address] documented as of this encounter
--- OUTSIDE RECORDS SUMMARY | 2022-07-14 12:16 | XMS_ITS | Encounter Summary ---
:1985 Author Organization [facility] Address [address], [place] [address] Care Team Providers Name Role Phone Lopez Roselyn Lynn PA-C Primary Care Provider Reason for Visit Reason Comments Dysuria frequency fatigue hematuria [id number] Encounter Details Date Type Department Care Team Description 09/26/2019 Office Visit [facility] Percy J, Dysuria (Primary Dx); Medicine PA-C Hematuria, microscopic [address] [address] [place] [address] [phone] Social History Tobacco Use Types Packs/Day Years [...] Comments Blood Pressure 122/82 09/26/2019 3:41 PM MOLD OPERATOR Pulse 88 09/26/2019 3:41 PM MOLD OPERATOR Temperature 36.8 ??C (98.2 ??F) 09/26/2019 3:41 PM MOLD OPERATOR Respiratory Rate 16 09/26/2019 3:41 PM MOLD OPERATOR Oxygen Saturation - - Inhaled Oxygen Concentration - - Weight 52.6 kg (116 lb) 09/26/2019 3:41 PM MOLD OPERATOR Height 170.2 cm (5' 7) 09/26/2019 3:41 PM MOLD OPERATOR Body Mass Index 18.17 09/26/2019 3:41 PM MOLD OPERATOR documented in this encounter Patient Instructions Patient [...] symptoms, feeling sicker, or any other concerns. OPERATOR documented in this encounter Progress Notes Percy Gutierrez PA-C - 09/26/2019 3:20 PM CST Chief Complaint Patient presents with ??? Dysuria frequency fatigue hematuria [id number] History of present illness: Betty Tai is [...] Protein, Urine Qual (mg/dL) Trace 09/26/2019 Specific [place], Urine 1.015 09/26/2019 Urobilinogen, Urine (EU/dL) 0.2 [...] symptoms, feeling sicker, or any other concerns. OPERATOR documented in this encounter Plan of Treatment Not on filedocumented as of this encounter Results (ABNORMAL) Urine Culture (09/26/2019 3:48 PM MOLD OPERATOR) Component Value Ref Test Method Analysis Performed Patholog ist Range Time At Signature Urine Growth (A) 09/28/2019 [facility] Culture 10:34 AM HOSPITAL MOLD OPERATOR Urine 10,000 - 50,000 GIANLUCA 09/28/2019 [facility] Culture CFU/mL SENSITIVITY 10:34 AM [facility] Staphylococcus MOLD OPERATOR saprophyticus Specimen Anatomical Collection Method Collection Time Receive d Time (Source) Location / / Volume Laterality Urine URINE SPECIMEN Non-blood 09/26/2019 3:48 PM 019 3:48 COLLECTION, CLEAN Collection / MOLD OPERATOR PM MOLD OPERATOR CATCH / Unknown Unknown Narrative [facility] - 09/28/2019 10:[address] Routine testing of urine isolates of Sta phylococcus saprophyticus is not advised, because infections respond to concentrat ions achieved in urine of antimicrobial agents commonly used to treat acute, unc omplicated UTIs (eg, nitrofurantoin, trimethoprim ?? sulfamethoxazole, or a f luoroquinolone). Percy Gutierrez PA-C LAB_1 Performing Organization Address City/State/ZIP Code Phon e Number [address] [address] (ABNORMAL) Urine Dipstick NPT (09/26/2019 3:48 PM MOLD OPERATOR) Patholo gist Method Time Signature Glucose Urine Negative Negative 09/26/2019 [facility] Qual (mg/dL) 3:55 PM MOLD OPERATOR Bilirubin Negative Negative 09/26/2019 [facility] Urine 3:55 PM MOLD OPERATOR Ketones, Negative Negative 09/26/2019 [facility] Urine (mg/dL) 3:55 PM MOLD OPERATOR Specific 1.015 1.005 - 09/26/2019 [facility] [place], 1.030 3:55 PM MOLD OPERATOR Urine Blood, Urine Trace Neg/Trace 09/26/2019 [facility] 3:55 PM MOLD OPERATOR PH Urine 7.0 5.0 - 8.0 09/26/2019 [facility] 3:55 PM MOLD OPERATOR Protein, Trace Neg/Trace 09/26/2019 [facility] Urine Qual 3:55 PM MOLD OPERATOR (mg/dL) Urobilinogen, 0.2 <2.0 09/26/2019 [facility] Urine (EU/dL) 3:55 PM MOLD OPERATOR Nitrite Urine Negative Negative 09/26/2019 [facility] 3:55 PM MOLD OPERATOR Leukocyte Large (A) Negative 09/26/2019 [facility] Est. 3:55 PM MOLD OPERATOR Urine Color Yellow Straw-Yellow 09/26/2019 [facility] 3:55 PM MOLD OPERATOR Urine Clarity Hazy (A) Clear 09/26/2019 [facility] 3:55 PM MOLD OPERATOR Specimen Anatomical Collection Method Collection Time Receive d Time (Source) Location / / Volume Laterality Urine URINE SPECIMEN Non-blood 09/26/2019 3:48 PM 019 3:48 COLLECTION, CLEAN Collection / MOLD OPERATOR PM MOLD OPERATOR CATCH / Unknown Unknown Percy Gutierrez PA-C LAB_1 Performing Organization Address City/State/ZIP Code Phon e Number [facility] [address] [place] [address] [phone] [facility] [address] [place] [address] [phone] documented in this encounter Visit Diagnoses Diagnosis Dysuria - Primary Hematuria, microscopic Microscopic hematuria documented in this encounter Care Teams Neonatal Specialist Relationship Specialty Start Date End Date Roselyn Marroquin PA-C PCP - General Physician Straddle Bug Driver 08/09/16 [address] [place] [address] documented as of this encounter
--- OUTSIDE RECORDS SUMMARY | 2022-07-14 12:16 | XMS_ITS | Encounter Summary ---
:1984 Author Organization [employer] Address [address] [place] [address] Care Team Providers Name Role Phone Roselyn Marroquin PA-C Primary Care Provider Reason for Visit Reason Comments ROUTINE HEALTH MAINTENANCE Encounter Details Date Type Department Care Team Description 12/06/2017 Office Visit [facility] Juaquin Corona Well ad ult exam (Primary Dx); Medicine Pap smear of cervix reminder not needed forever; [address] [address] [address] Tinea versicolor; [place], [place] Tobacco abuse [address] [phone] Social History Tobacco Use Types Packs/Day Years [...] Comments Blood Pressure 110/62 12/06/2017 9:54 AM TAXI CAB DRIVER Pulse 88 12/06/2017 9:54 AM TAXI CAB DRIVER Temperature - - Respiratory Rate - - Oxygen Saturation - - Inhaled Oxygen Concentration - - Weight 55.4 kg (122 lb 1.6 oz) 12/06/2017 9:54 AM TAXI CAB DRIVER Height 165.7 cm (5' 5.25) 12/06/2017 9:54 AM TAXI CAB DRIVER Body Mass Index 20.16 12/06/2017 9:54 AM TAXI CAB DRIVER documented in this encounter Progress Notes Sonia Alexander RN - 12/19/2017 12:12 PM CST See telephone encounter initiated 12/19/2017 to notify patient of results. CAB DRIVER Juaquin Corona MD - 12/06/2017 10:00 AM [...] (DIFLUCAN) 150 MG tablet 4. Tobacco abuse ([facility]) Z72.0 nicotine (NICODERMCQ) 14 MG/24HR [...] year Juaquin Corona MD 9:13 AM 12/07/2017 CAB DRIVER documented in this encounter Plan of Treatment Not on filedocumented as of this encounter Procedures Procedure Name Priority Date/Time Associated Comments Diagnosis PAP TEST ORDER Routine 12/06/2017 10:26 AM Pap smear of cervix Results for this TAXI CAB DRIVER reminder not needed procedur e are in forever the results section. HPV WITH 16 18 Routine 12/06/2017 10:26 AM Well adult exam Res ults for this GENOTYPING, TAXI CAB DRIVER procedure are i n CERVICAL/ENDOCERVICA the res ults L section. ANATOMICAL PATH Routine 12/06/2017 10:26 AM Well adult exam Re sults for this LIQUID BASED TAXI CAB DRIVER procedure are i n the results section. documented in this encounter Results Pap Smear (12/06/2017 10:26 AM TAXI CAB DRIVER) Specimen (Source) Anatomical Collection Method Collection Time Re ceived Time Location / / Volume Laterality 12/06/2017 10:26 AM TAXI CAB DRIVER Narrative PN SOFT - 12/16/2017 6:26 PM TAXI CAB DRIVER FINAL GYNECOLOGICAL CYTOLOGY REPORT Pathology #: [id number] ?Date Obtained: 12/06/2017 ? Date Received: 12/07/2017 INTERPRETATION/RESULTS: Atypical squamous cells, cannot exclude high grade squamous intraepithelial lesion (ASC-H). SPECIMEN ADEQUACY: Satisfactory for Evaluation. ??Endocervi eusebio cells/transformation zone component present. Verified on 12/16/2017 ??by HENRIQUE BUENROSTRO MD (electronic signature) CLINICAL NOTES: ?Abnormal bleeding: No, LMP: [phone] [id number], Menstrual status: None ?Apply, Current form of [...] false-negative report s may occur. Performed at [facility], [address] [place] [address] Juaquin Corona MD LAB_1 Performing Organization Address City/State/ZIP Code Phon e Number PN SOFT [address] [place] [address] (ABNORMAL) HPV with 16 18 Genotyping (12/06/2017 10:26 AM TAXI CAB DRIVER) [facility] gist Method Time Signature HPV High Risk Not Detected PN SOFT 16 HPV High Risk Not Detected PN SOFT 18 Other HPV High Detected (A) PN SOFT Risk Not 16/18 Comment: ........................................ ................................. The Manpreet HPV Test is a qualitative in v itro test for the detection of Human Papillomavirus in [facility] ePa patient specimens. ??The [...] and its pe rformance characteristics determined by [facility]. It has not been cleared or approved by [facility]. The laboratory is regulated under CLIA as qualified to perform high-complexity testing. This test is used for clinical purposes. It should not be regarded as investigational or fo r research. Specimen Anatomical Collection Method Collection Time Receive d Time (Source) Location / / Volume Laterality 12/06/2017 10:26 12/06/2017 AM TAXI CAB DRIVER 10:26 AM TAXI CAB DRIVER Narrative PN SOFT - 12/11/2017 1:11 PM TAXI CAB DRIVER Performed at [place] [id number] CLIA number [id number] Juaquin Corona MD LAB_1 Performing Organization Address City/State/ZIP Code Phon e Number PN SOFT [address] [place] [address] Pap Test Order (12/06/2017 10:26 AM TAXI CAB DRIVER) [facility] Signature Pap Smear Collected PN SOFT Monolayer tracking test Specimen Anatomical Collection Method Collection Time Receive d Time (Source) Location / / Volume Laterality 12/06/2017 10:26 12/07/2017 4:41 AM TAXI CAB DRIVER AM TAXI CAB DRIVER Narrative PN SOFT - 12/06/2017 10:27 AM TAXI CAB DRIVER Performed at [address] [address] CLIA number [id number] Juaquin Corona MD LAB_1 Performing Organization Address City/[facility]/ZIP [facility] Phon e Number PN SOFT [address] [place] [address] Lipid Panel - LDLD If Trig High [...] Volume Laterality 12/06/2017 12/06/2017 11:2 5 AM TAXI CAB DRIVER Narrative PN SOFT - 12/06/2017 12:35 PM TAXI CAB DRIVER Performed at [facility], [address] [place] [id number] CLIA number [id number] Juaquin Corona MD LAB_1 Performing Organization Address [facility] Phon e Number PN SOFT [address] [place] [address] Glucose (12/06/2017) P athologist Signature Lab Glucose 96 70 - 100 PN SOFT mg/dL Comment: The stated glucose range is for the fast ing state. Non-fasting glucose range is 70-180 mg/d L Specimen (Source) Anatomical Collection Method Collection Time Re ceived Time Location / / Volume Laterality 12/06/2017 12/06/2017 11:2 5 AM TAXI CAB DRIVER Narrative PN SOFT - 12/06/2017 12:35 PM TAXI CAB DRIVER Performed at [facility], [address] [place] [id number] CLIA number [id number] Juaquin Corona MD LAB_1 Performing Organization Address [facility]/ZIP Code Phon e Number PN SOFT [address] [place] [address] documented in this encounter Visit Diagnoses Diagnosis [...] facility documented in this encounter Care Teams Biomass Boiler Operator Relationship Specialty Start Date End Date Roselyn Marroquin PA-C PCP - General Physician Business Editor 08/09/16 [address] [place] [address] documented as of this encounter
--- OUTSIDE RECORDS SUMMARY | 2022-07-14 12:16 | XMS_ITS | Encounter Summary ---
:1985 Author Organization [facility] Address [address] [place] [address] Care Team Providers Name Role Phone Roselyn Marroquin PARavinderC Primary Care Provider Reason for Visit Reason Comments Pharyngitis Encounter Details Date Type Department Care Team Description 11/15/2017 Hospital Encounter [facility] re Brenda Mancia, Sore throat; [address] [employer] PAEarnestine Viral illness [place], [place] [id number] [facility] [phone] [place], [place] [address] (Wo rk) Social History Tobacco Use Types [...] Comments Blood Pressure 109/74 11/15/2017 12:27 PM ELECTROMECHANICAL ASSEMBLER Pulse 86 11/15/2017 12:27 PM ELECTROMECHANICAL ASSEMBLER Temperature 36.7 ??C (98.1 ??F) 11/15/2017 12:27 PM ELECTROMECHANICAL ASSEMBLER Respiratory Rate 16 11/15/2017 12:27 PM ELECTROMECHANICAL ASSEMBLER Oxygen Saturation 97% 11/15/2017 12:27 PM ELECTROMECHANICAL ASSEMBLER Inhaled Oxygen Concentration - - Weight - - Height - - Body Mass Index - - documented in this encounter Discharge Instructions AttachmentsThe following attachments cannot be sent through Care Everywhere. INFLUENZA (LUXEMBOURGISH)documented in this encounter Medications at Time of [...] STREP GROUP A WAIVED Narrative: Performed at [facility], [address] [place] [address] CLIA number [id number] BETA STREP RESP CULT Narrative: Performed at [facility], [address] [place] [address], CLIA Number [id number] Orders Placed This Encounter ??? Rapid Strep [...] recognition software and may contain typographic errors. TROMECHANICAL ASSEMBLER documented in this encounter Plan of Treatment Not on filedocumented as of this encounter Procedures Procedure Name Priority Date/Time Associated Diagnosis Comme nts BETA STREP RESP STAT 11/15/2017 12:40 PM Sore throat Resul ts for this CULT ELECTROMECHANICAL ASSEMBLER procedure are i n the results section. GROUP A STREP STAT 11/15/2017 12:29 PM Sore throat Results for this ANTIGEN SCREEN ELECTROMECHANICAL ASSEMBLER procedure are in the results section. documented in this encounter Results Strep Screen Culture Throat (CSS) (11/15/2017 12:40 PM ELECTROMECHANICAL ASSEMBLER) [facility] gist Method Time Signature Source Throat PN SOFT Site PN SOFT Strep Screen No Group A 11/17/2017 PN SOFT Streptococcus 7:18 AM ELECTROMECHANICAL ASSEMBLER Isolated Specimen (Source) Anatomical Collection Method Collection Time Re ceived Time Location / / Volume Laterality Throat: 11/15/2017 12:40 PM ELECTROMECHANICAL ASSEMBLER Narrative PN SOFT - 11/17/2017 7:18 AM ELECTROMECHANICAL ASSEMBLER Performed at [facility], [address] [place] [address], CLIA Number [id number] Ace PATEL LAB_1 Performing Organization Address City/State/ZIP Code Phon e Number PN SOFT [address] [place] [address] Rapid Strep Group A Waived (RSAW) (11/15/2017 12:29 PM ELECTROMECHANICAL ASSEMBLER) athologist Signature Strep A Negative Negative PN SOFT Antigen Strep A Source THROA: PN SOFT Specimen Anatomical Collection Method Collection Time Receive d Time (Source) Location / / Volume Laterality 11/15/2017 12:29 11/15/2017 1:33 PM ELECTROMECHANICAL ASSEMBLER PM ELECTROMECHANICAL ASSEMBLER Narrative PN SOFT - 11/15/2017 1:35 PM ELECTROMECHANICAL ASSEMBLER Performed at [facility], [address] [facility], [place] [address] CLIA number [id number] Ace Joseph AMANDA LAB_1 Performing Organization Address City/State/ZIP Code Dieter deras Number PN SOFT [address] [place] [address] [phone] documented in this encounter Visit Diagnoses Diagnosis Sore throat Acute pharyngitis Viral illness Unspecified viral infection, in conditio ns classified elsewhere and of unspecified site Triage Assessment Note - Alona Matos RN - 11/15/2017 12:25 PM ELECTROMECHANICAL ASSEMBLER Patient is an established patient according to [facility] policy and definition? Yes: SORE THROAT: [...] hasextended contact (i.e., day care worker or manager school) with a person who had strep within the last 10 days. OBJECTIVE Objective exam of patient indicates red throat. Phone number: Telephone Information: Work Phone Not on file. ASSESSMENT Sore throat. Alona Matos RN TROMECHANICAL ASSEMBLER documented in this encounter Care Teams High School Business Teacher Relationship Specialty Start Date End Date Roselyn Marroquin PA-C PCP - General Physician Sap Bw Bi Developer 08/09/16 [address] [place] [address] documented as of this encounter
--- OUTSIDE RECORDS SUMMARY | 2022-07-14 12:16 | XMS_ITS | Clinical Summary ---
:1985 Author Organization [facility] Address [address] [place] [address] Care Team Providers Name Role Phone Roselyn [...] for each transition of care or referral. [facility] Allergies No known active allergies Medications Medication [...] (ActHIB) 08/21/1986 Influenza IIV4 (Quadrivalent) 0.5mL 08/25/2020 (63673) MMR 03/02/1986 OPV, Trivalent (Orimune or tOPV) [...] Comments Blood Pressure 122/82 09/26/2019 3:41 PM OVEN DRIER TENDER Pulse 88 09/26/2019 3:41 PM OVEN DRIER TENDER Temperature 36.8 ??C (98.2 ??F) 09/26/2019 3:41 PM OVEN DRIER TENDER Respiratory Rate 16 09/26/2019 3:41 PM OVEN DRIER TENDER Oxygen Saturation 98% 08/28/2018 4:49 PM OVEN DRIER TENDER Inhaled Oxygen Concentration - - Weight 52.6 kg (116 lb) 09/26/2019 3:41 PM OVEN DRIER TENDER Height 170.2 cm (5' 7) 09/26/2019 3:41 PM OVEN DRIER TENDER Body Mass Index 18.17 09/26/2019 3:41 PM OVEN DRIER TENDER Plan of Treatment Health Maintenance Due Date [...] e / Group Dates BCBS BCBS PMAP [id number] 2020-Pres [address] icaid BLUE ent [id number] ADVANTAGE ESPERANZA ALVARADO [address] [facility] PMAP [id number] 2018-Pre Medicaid DENTAL PLAN ADULT DENTAL sent [phone] [place] [address] y [address] (Home) [phone] ESPERANZA TORRES 6 (Work) [id number] Betty Tai Personal/Famil Self 1985 [phone] (Home) [place], [place] [phone] 6 (Work) Betty Tai Personal/Famil Self 1985 [phone] (Home) [place] [address] CHEYENNE MASSEY Personal/Famil Self 06/26/1956 [phone] y [address] (Home) [place] [address] Care Teams Stereoptician Relationship Specialty Start Date End Date Roselyn Marroquin PA-C PCP - General Physician Dishwasher Preparer 08/09/16 [address] [place] [address]
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
--- OUTSIDE RECORDS SUMMARY | 2022-07-14 12:16 | XMS_ITS | Encounter Summary ---
:1985 Author Organization [facility] Address [address] [place] [address] Care Team Providers Name Role Phone Roselyn Marroquin PA-C Primary Care Provider Encounter Details Date Type Department Care Team Description 08/25/2020 Immunization [place] [address] Flu Need for prophylactic Clinic vaccination and [address] [place] [address] influenza [phone] Social History Tobacco Use Types Packs/Day Years [...] influenza documented in this encounter Care Teams General Operator Relationship Specialty Start Date End Date Roselyn Marroquin PA-C PCP - General Physician Breastfeeding Program Coordinator 08/09/[address] [place], [place] [address] documented as of this encounter
--- OUTSIDE RECORDS SUMMARY | 2022-07-14 12:16 | XMS_ITS | Encounter Summary ---
:1985 Author Organization [facility] Address [address], [place] [address] Care Team Providers Name Role Phone Roselyn Marroquin PA-C Primary Care Provider Reason for Visit Reason Onset Date Comments RESULTS, TEST 08/17/2016 Encounter Details Date Type Department Care Team Description 08/17/2016 Telephone [facility] Roselyn Michael PA-C RESULTS, TEST [address] [facility] [address] [place] [address] [place] [address] [phone] (Wo rk) Social History Tobacco Use Types [...] Kaufman MD BURFR OBG PN POE FR OID IOS DEVELOPER Kellee Ramey, RN - 08/17/2016 10:59 AM CDT Pt had appt with Kylah on 08/09/16. Called pt with pap results of ASCUS, HPV+ other, colp indicated. Attempted to call pt, no vmail set up. Will try again documented in this encounter Plan of Treatment Not on filedocumented as of this encounter Visit Diagnoses Not on filedocumented in this encounter Care Teams Automotive Fleet Supervisor Relationship Specialty Start Date End Date Roselyn Marroquin PA-C PCP - General Physician Horticulture/Floriculture Teacher 08/09/16 [address] [place] [address] documented as of this encounter
--- OUTSIDE RECORDS SUMMARY | 2022-07-14 12:16 | XMS_ITS | Encounter Summary ---
:1985 Author Organization [employer] Address [address] [place] [address] Care Team Providers Name Role Phone LopezRoselyn Shane PERAZA Primary Care Provider Reason for Visit Reason Comments Dental Hygiene cc none Encounter Details Date Type Department Care Team Description 01/18/2018 Office Visit [facility] Mariam Herrera, [facility] [address] [place] [address] Dental Hygiene (cc Dentistry Yardic, Exam none) [address] [place] [address] Social History Tobacco Use Types [...] this encounter Patient Instructions Patient InstructionsYareli Jacob, [facility] - 01/18/2018 4:10 PM CDT Your next [...] Peralta DDS 01/18/2018, 4:36 PM Yareli Jacob, [facility] - 01/18/2018 4:10 PM CDT PROPHY NOTE PROPHY/ASSESSMENT:61047::PROPHY NOTE Collaborative Agreement: ?? Patient consents to [...] 4:57 PM Routine health VARNISH CDT maintenance [id number] Routine 01/18/2018 4:57 PM Routine health CDT maintenance PROPHYLAXIS-ADULT Routine 01/18/2018 4:57 PM Routine health RECALL CDT maintenance PERIODIC ORAL Routine 01/18/2018 4:57 PM Routine health EVALUATION CDT maintenance 4 MOD EXISTING Routine 01/05/2017 11:00 PM COMPOSITE FILLING CDT 24 WY EXISTING Routine 01/05/2017 11:00 PM COMPOSITE FILLING CDT 24 W[place] EXISTING Routine 01/05/2017 11:00 PM COMPOSITE FILLING CDT 31 MO EXISTING Routine 01/05/2017 11:00 PM COMPOSITE FILLING CDT 2 O EXISTING COMPOSITE Routine 01/05/2017 11:00 PM FILLING CDT 8 FI EXISTING COMPOSITE Routine 01/05/2017 11:00 PM FILLING CDT 24 W[place] EXISTING Routine 01/05/2017 11:00 PM COMPOSITE FILLING [...] trauma), without mention of complication Fractured dental pentecostal with loss o f material Fractured dental restorative material wi th loss of material Gingivitis, chronic, non-plaque induced Chronic gingivitis, non-plaque induced documented in this encounter Care Teams Post Manager Relationship Specialty Start Date End Date Roselyn Marroquin PA-C PCP - General Physician Runner On 08/09/16 [address] [place] [address] documented as of this encounter
--- OUTSIDE RECORDS SUMMARY | 2022-07-14 12:16 | XMS_ITS | Encounter Summary ---
:1985 Author Organization [facility] Address [address] [place] [address] Care Team Providers Name Role Phone Roselyn Marroquin PA-C Primary Care Provider Reason for Referral Consult/Transfer Care (Routine) - Closed Specialty Diagnoses / Procedures Referred By Contact Refer red To Contact Diagnoses Dysmenorrhea Metrorrhagia Roselyn Marroquin PA-C [address] [place] [address] Referral ID Status Reason Start Date Expiration Date Visits Requ ested Visits Authorized [id number] Closed 08/09/2016 11/08/2017 1 1 Scheduling Instructions Your provider has recommended an appoint ment with [facility]. You may call [phone] to schedule your appointment. If you do [...] Department Care Team Description 08/09/2016 Office Visit [facility] Roselyn Marroquin, Annual physical exam (Primary Dx); Medicine STU Vaginal discharge; [address] [address] [facility] Urinary frequency; [place], [place] Encounter for screening for lipoid disorders; [phone] Screening for diabetes mellitus; [phone] Dysmenorrhea; (Work) Metrorrhagia; Encounter for smoking cessation [...] help with mood and energy. 5) Call DATABASE SECURITY EXPERT at number below to schedule to discuss [...] CBC. Discussed Mirena IUD, will send to abrading machine tender. Currently isn't doing any control. Is OK [...] pilates 3x per week. 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 Supplements: None. 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 LMP: Patient's last menstrual period was 07/17/2016 (exact date). Pap hx: Does patient have history of abnormal pap smear? yes. Years ago. Past Medical, Family, Surgical and Social History, Drug allergies and Medications have been reviewedand updated in [facility] today. Review of Systems: The remainder of [...] external genitalia and urethra, without lesions noted. [place], moist vaginal and cervical mucosa, without lesions, [...] T4 (FRT4 If TSH Abnorm); Future - Ob-Cuff Stitcher Consult Metrorrhagia - CBC - Complete Blood Count-No Diff; Future - TSH And Free T4 (FRT4 If TSH Abnorm); Future - Ob-Cuff Stitcher Consult Encounter for smoking cessation counseling (HRC) [...] help with mood and energy. 5) Call DATABASE SECURITY EXPERT at number below to schedule to discuss Mirena IUD to help decrease the bleeding and cramping with your periods. 6) I'll notify you of your labs. Thanks, Roselyn Marroquin, PAC. documented in this encounter Plan of Treatment Scheduled Referrals Name Type Priority Associated Diagnoses Order S chedule Ob-Cuff Stitcher Consult Referral Routine Dysmenorrhea Ordered: 08/09/2016 Metrorrhagia [...] - 08/09/2016 11:28 PM CDT Performed at [facility], [address] [place] [address] CLIA number [id number] Roselyn Marroquin PA-C LAB_1 Performing Organization Address City/[facility] Phon e Number PN SOFT [address] [place] [address] (ABNORMAL) CBC - Complete Blood Count-No Diff [...] - 08/09/2016 2:34 PM CDT Performed at [facility] [address] [place] [address] CLIA number [id number] Roselyn Marroquin PA-C LAB_1 Performing Organization Address City/[facility] Phon e Number PN SOFT [address] [place] [address] Glucose (08/09/2016 2:27 PM CDT) P athologist Signature Lab Glucose 91 60 - 100 PN SOFT mg/dL Specimen Anatomical Collection Method Collection Time Receive d Time (Source) Location / / Volume Laterality 08/09/2016 2:27 PM 6 5:08 CDT PM CDT Narrative PN SOFT - 08/09/2016 5:27 PM CDT Performed at [facility] [address] [id number] CLIA number [id number] Roselyn Marroquin PA-C LAB_1 Performing Organization Address City/[facility] Phon e Number PN SOFT [address] [place] [address] Lipid Panel - LDLD If Trig High [...] - 08/09/2016 5:27 PM CDT Performed at [facility] [address] [place] [address] CLIA number [id number] Roselyn Marroquin PA-C LAB_1 Performing Organization Address City/[facility] Phon e Number PN SOFT [address] [place] [address] Pap Smear (08/09/2016 2:22 PM CDT) Specimen (Source) Anatomical Collection Method Collection Time Re ceived Time Location / / Volume Laterality 08/09/2016 2:22 PM CDT Narrative PN SOFT - 08/16/2016 3:49 PM CDT FINAL GYNECOLOGICAL CYTOLOGY REPORT Pathology #: [id number] ?Date Obtained: 08/09/2016 ? Date Received: 08/10/2016 INTERPRETATION/RESULTS: Atypical squamous cells of undetermined significance (ASCUS). If requested and applicable, HPV testing wi ll be performed and reported separately, per ACOG guidelines. SPECIMEN ADEQUACY: Satisfactory for Evaluation. ??Endocervi eusebio cells/transformation zone component present. Verified on 08/16/2016 ??by JOSE GRUBER MD (electronic signature) CLINICAL NOTES: ?Abnormal bleeding: No, LMP: [phone] [id number], Menstrual status: None ?Apply, Current form of [...] false-negative report s may occur. Performed at [facility], [address] [place] [address] Roselyn Marroquin PA-C LAB_1 Performing Organization Address City/State/ZIP Code Phon e Number PN SOFT [address] [place] [address] (ABNORMAL) HPV with 16 18 Genotyping (08/09/2016 2:22 PM CDT) [facility] Method Time Signature HPV High Risk [...] and its pe rformance characteristics determined by [facility]. It has not been cleared or approved by [facility]. The laboratory is regulated under CLIA [...] - 08/14/2016 12:22 PM CDT Performed at [address] [address] CLIA number [id number] Roselyn Marroquin PA-C LAB_1 Performing Organization Address City/[facility] Phon e Number PN SOFT [address] [place] [address] [phone] Chlamydia and GC STD (08/09/2016 2:22 PM CDT) [facility] Method Time Signature Chlamydia Negative Negative PN SOFT Trachomatis STD Comment: Test Performed by Germination Worker Mediated Amplification CLIA Number [id number] N. gonorrhoeae STD Negative Negative PN SOFT Comment: Test Performed by Germination Worker Mediated Amplification Performed at [facility], [address] [place] [address] CLIA Number [id number] Source STD Cervix PN SOFT Comment: CLIA Number [id number] Specimen Anatomical Collection Method Collection Time Receive d Time (Source) Location / / Volume Laterality 08/09/2016 2:22 PM 6 6:50 CDT PM CDT Roselyn Marroquin PA-C LAB_1 Performing Organization Address [facility] Phon e Number PN SOFT [address] [place] [address] Pap Test Order (08/09/2016 2:22 PM CDT) Analysis Performed At [facility] logist Time Signature Pap Smear Collected PN SOFT Monolayer tracking test Specimen Anatomical Collection Method Collection Time Receive d Time (Source) Location / / Volume Laterality 08/09/2016 2:22 PM 6 5:34 CDT AM CDT Roselyn Marroquin PA-C LAB_1 Performing Organization Address City/[facility] Phon e Number PN SOFT [address] [place] [address] Vaginitis Panel, DNA Probe (08/09/2016 2:22 PM CDT) [facility] Method Time Signature Trichomonas Not Detected Not Detected PN SOFT vaginalis Gardnerella Not Detected Not Detected PN SOFT vaginalis Alie species Not Detected Not Detected PN SOFT Specimen Anatomical Collection Method Collection Time Receive d Time (Source) Location / / Volume Laterality 08/09/2016 2:22 PM 6 8:41 CDT PM CDT Narrative PN SOFT - 08/10/2016 10:48 AM CDT Performed at [facility] [address] [place] [address] CLIA number [id number] Roselyn Marroquin PA-C LAB_1 Performing Organization Address City/[facility] Phon e Number PN SOFT [address] [place] [address] UR NPT Hold for Culture (08/09/2016 1:39 PM CDT) [facility] Method Time Signature Urine Type URINE:clean [...] U Specific 1.020 1.005 - PN SOFT [place] 1.030 Urobilinogen Negative Negative PN SOFT Urine Eu/dL Turbidity Clear Clear PN SOFT Color Yellow PN SOFT Specimen Anatomical Collection Method Collection Time Receive d Time (Source) Location / / Volume Laterality 08/09/2016 1:39 PM 6 1:39 CDT PM CDT Narrative PN SOFT - 08/09/2016 1:45 PM CDT Performed at [facility] [address] [place] [address] CLIA number [id number] Roselyn Marroquin PA-C LAB_1 Performing Organization Address City/State/ZIP Code Phon e Number PN SOFT [address] [place] [address] documented in this encounter Visit Diagnoses Diagnosis Annual physical exam - Primary Routine general medical examination at a health care facility Vaginal discharge Leukorrhea, not specified as infective Urinary frequency Encounter for screening for lipoid disor ders Screening for lipoid disorders Screening for diabetes mellitus Dysmenorrhea Metrorrhagia Encounter for smoking cessation counseli laley (HR) Counseling on substance use and abuse Urinary frequency Encounter for screening for lipoid disor ders Screening for lipoid disorders Screening for diabetes mellitus Dysmenorrhea Metrorrhagia documented in this encounter Care Teams Molybdenum Steamer Operator Relationship Specialty Start Date End Date Roselyn Marroquin PA-C PCP - General Physician Channel Sales Director 08/09/16 [address] [place] [address] documented as of this encounter
--- OUTSIDE RECORDS SUMMARY | 2022-07-14 12:16 | XMS_ITS | Encounter Summary ---
:1985 Author Organization [facility] Address [address] [place] [address] Care Team Providers Name Role Phone Roselyn Marroquin PA-C Primary Care Provider Encounter Details Date Type Department Care Team Description 08/09/2016 Lab Visit [facility] Encounter for screening for lipoid disorders; [address] Screening for diabetes donato keller; [place] [address] Dysmenorrhea; [phone] Metrorrhagia Social History Tobacco Use Types Packs/Day [...] - 08/09/2016 11:28 PM CDT Performed at [place] [address] [place] [address] CLIA number [id number] Roselyn Marroquin PA-C LAB_1 Performing Organization Address City/State/ZIP Code Phon e Number PN SOFT [address] [place] [address] (ABNORMAL) CBC - Complete Blood Count-No Diff (08/09/2016 2:27 PM CDT) [facility] gist Method Time Signature White Blood [...] - 08/09/2016 2:34 PM CDT Performed at [facility], [address] [place] [address] CLIA number [id number] Roselyn Marroquin PA-C LAB_1 Performing Organization Address City/[facility]/ZIP Code Phon e Number PN SOFT [address] [place] [address] Glucose (08/09/2016 2:27 PM CDT) P athologist Signature Lab Glucose 91 60 - 100 PN SOFT mg/dL Specimen Anatomical Collection Method Collection Time Receive d Time (Source) Location / / Volume Laterality 08/09/2016 2:27 PM 6 5:08 CDT PM CDT Narrative PN SOFT - 08/09/2016 5:27 PM CDT Performed at [facility], [address] [place] [address] CLIA number [id number] Roselyn Marroquin PA-C LAB_1 Performing Organization Address [facility] Phon e Number PN SOFT [address] [place] [address] Lipid Panel - LDLD If Trig High [...] - 08/09/2016 5:27 PM CDT Performed at [facility], [address] [place] [address] CLIA number [id number] Roselyn Marroquin PA-C LAB_1 Performing Organization Address City/[facility]/ZIP Code Phon e Number PN SOFT [address] [place] [address] documented in this encounter Visit Diagnoses Diagnosis Encounter for screening for lipoid disor ders Screening for lipoid disorders Screening for diabetes mellitus Dysmenorrhea Metrorrhagia documented in this encounter Care Teams Machine Hose Cutter Relationship Specialty Start Date End Date Roselyn Marroquin PA-C PCP - General Physician Load Mixer 08/09/16 [address] [place] [address] documented as of this encounter
--- OUTSIDE RECORDS SUMMARY | 2022-07-14 12:16 | XMS_ITS | Encounter Summary ---
:1985 Author Organization [facility] Address [address], [place] [address] Care Team Providers Name Role Phone Needs Pcp, Assignment Primary Care Provider Reason for Visit Reason Comments Cough Vaginal Discharge Encounter Details Date Type Department Care Team Description 02/18/2016 Hospital Encounter [facility] Trivedi, Acute vaginitis; Care MD Viral URI; [address] r Urinary tract infection, site unspecifie d; Drive [place], [place] BV (bacterial vaginosis) [place] [address] [phone] Social History Tobacco Use Types Packs/Day Years [...] continues to smoke 1/2 PPD, is using [employer] dimet[employer] and it helps. 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 She has had no fevers with [...] components within normal limits Narrative: Performed at [facility], [address] [place] [address] CLIA number [id number] LAB WET PREP - Abnormal; Notable for the following: WETPR Clue Cells Moderate (*) All other components within normal limits Narrative: Performed at [facility], [address] [place] [address] CLIA number [id number] LAB URINE MICROSCOPIC - Abnormal; Notable for the following: Bacteria Urine Moderate (*) All other components within normal limits Narrative: Performed at [facility], [address] [place] [address] CLIA number [id number] X-Rays: Xr Chest * Pa And Left [...] Where can you learn more? Go to Adwanted/LifeDox and enter X360 in the search box. Current as of: April 22, 2015 Content Version: 108 ?? [phone] [employer], [employer]. Upper Respiratory Infection (Cold): Care Instructions Your [...] include drinking lots of fluids and taking glue-yxf-mngusdy pain medicine. You will probably feel better [...] of fluids you drink. ?? Take an xbrv-fpb-ybrvtta pain medicine, such as acetaminophen (Tylenol), ibuprofen (Advil, Motrin), or naproxen (Aleve). Read and follow all instructions on the label. ?? Before you use cough and cold medicines, check the label. These medicines may not be safe for young children or for people with certain health problems. ?? Be careful when taking whme-atp-mukbaxp cold or flu medicines and Tylenol at [...] Where can you learn more? Go to Adwanted/MediSensrary and enter K520 in the search box. Current as of: June 11, 2015 Content Version: 108 ?? [phone] [employer], [employer]. RTC p.r.n. documented in this encounter Miscellaneous [...] from the original note were not included. [facility] [address] [facility] [address] Dept: [phone] [email or web address] Betty Tai 02/18/2016 2:51 PM UC Description: Female : 1985 Department: [facility] Dept Thank you for choosing [facility] for your health care visit with Awilda Trivedi MD.We are happy to care for you and provide this summary of your visit. 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 HERE IS WHAT YOU NEED TO KNOW To learn how you can take steps to stay as healthy as you can be visit [email or web address] Discharge Instructions Bacterial Vaginosis: Care Instructions Your [...] Where can you learn more? Go to [employer]/MediSensrary and enter X360 in the search box. Current as of: April 22, 2015 Content Version: 108 ?? [phone] [place], [facility]. Upper Respiratory Infection (Cold): Care [...] include drinking lots of fluids and taking kfpx-dxi-fclrvco pain medicine.You will probably feel better in [...] of fluids you drink. ?? Take an msdt-fni-dnbbqjs pain medicine, such as acetaminophen (Tylenol), ibuprofen (Advil, Motrin), or naproxen (Aleve). Read and follow all instructions on the label. ?? Before you use cough and cold medicines, check the label. These medicines may not be safe for young children or for people with certain health problems. ?? Be careful when taking nmef-rlc-gxnelfa cold or flu medicines and Tylenol at [...] Where can you learn more? Go to Adwanted/MediSensrary and enter K520 in the search box. Current as of: June 11, 2015 Content Version: 108 ?? [phone] [employer]. HERE IS WHAT YOU NEED TO DO Call your clinic if: You develop new symptoms Your symptoms worsen unexpectedly You are not improving as expected You have questions about your visit or medications Your to do list Future Orders Complete By Ordering Dept. PHYSICAL THERAPY CONSULT ADULT/PEDS ([place]) As directed [facility] Scheduling Instructions: Your provider has recommended an appointment with [facility]. You may call [phone] to schedule your appointment. If you prefer, a corporate scheduler will contact you within the next 3 [...] Negative Neg - Trace mg/dL U Specific [place] 1.015 1.005 - 1.030 Urobilinogen Urine Negative [...] Ethnicity Preferred Language 1985 Female White Non- Jamaican This document contains confidential information about your [...] (ABNORMAL) URINE MICROSCOPIC (02/18/2016 3:40 PM CDT) [facility] RICS Software Method Time Signature Urine WBC 0-2 0 [...] - 02/18/2016 4:04 PM CDT Performed at [facility], [address] [place] [address] CLIA number [id number] Awilda Trivedi MD LAB_1 Performing Organization Address City/State/ZIP Code Phon e Number HP CONVERSION (ABNORMAL) WET PREP (02/18/2016 3:40 PM CDT) [facility] RICS Software Method Time Signature WETPR White Moderate None [...] - 02/18/2016 3:51 PM CDT Performed at [facility], [facility] [address] [place] [address] CLIA number [id number] Awilda Trivedi MD LAB_1 Performing Organization Address [facility] Phon e Number HP CONVERSION (ABNORMAL) URINALYSIS ROUTINE(MICRO IF POS) (02/18/2016 3:40 PM CDT) [facility] Method Time Signature Urine Type Urine:clean HP [...] U Specific 1.015 1.005 - HP CONVERSION [place] 1.030 Urobilinogen Negative Negative HP CONVERSION Urine Eu/dL Specimen Anatomical Collection Method Collection Time Receive d Time (Source) Location / / Volume Laterality Urine: 02/18/2016 3:40 PM 6 3:46 CDT PM CDT Narrative HP CONVERSION - 02/18/2016 4:04 PM CDT Performed at [facility], [facility] [address] [place] [address] CLIA number [id number] Awilda Trivedi MD LAB_1 Performing Organization Address [facility] Phon e Number HP CONVERSION documented in [...] that is more due to the coughing. EMATICS IMPROVEMENT TEACHER documented in this encounter Care Teams Clay Artist Relationship Specialty Start Date End Date Needs Pcp, Assignment PCP - General 02/18/16 08/08/16 [place] [address] documented as of this encounter
--- OUTSIDE RECORDS SUMMARY | 2022-07-14 12:16 | XMS_ITS | Encounter Summary ---
:1985 Author Organization [employer] Address [address], [place] [address] Care Team Providers Name Role Phone LopezVinnyRoselyndonald Lynn PA-C Primary Care Provider Reason for Visit Reason Comments Procedure colposcopy Encounter Details Date Type Department Care Team Description 12/25/2017 Procedure Visit [facility]gor Kauf[facility] Procedure Services-WAVE SOLDERING MACHINE OPERATOR MD Tucker (colposcopy) [address], [address] [place] [address] [place], [place] [phone] (Wo rk) [address] [phone] Social History Tobacco Use Types Packs/Day Years [...] Patient notified. Pap/HPV advised in 1 year RK MACHINE OPERATOR Igor Kaufman - 12/25/2017 1:00 PM CST [...] findings. Post biopsy instructions given to patient. RK MACHINE OPERATOR documented in this encounter Plan of Treatment Not on filedocumented as of this encounter Procedures Procedure Name Priority Date/Time Associated Comments Diagnosis CLINIC OBTAINED Routine 12/25/2017 1:27 PM Pap smear of cervix Results for this ANATOMICAL PATHOLOGY REWORK MACHINE OPERATOR with ASCUS, cannot p rocedure are in exclude HGSIL the results section. SURGICAL PATH, VALATIE Routine 12/25/2017 6:00 AM Re sults for this [facility] REWORK MACHINE OPERATOR procedure are i n the results section. documented in this encounter Results Clinic Obtained Tissue [TIS] (12/25/2017 1:27 PM REWORK MACHINE OPERATOR) athologist Signature CLINIC Received PN SOFT OBTAINED TISSUE Specimen Anatomical Collection Method Collection Time Receive d Time (Source) Location / / Volume Laterality 12/25/2017 1:27 PM 8 6:26 REWORK MACHINE OPERATOR PM REWORK MACHINE OPERATOR Narrative PN SOFT - 12/25/2017 6:52 PM REWORK MACHINE OPERATOR Performed at [facility], [address] [place] [address] CLIA number [id number] Igor Kaufman MD LAB_1 Performing Organization Address City/State/ZIP Code Phon e Number PN SOFT [address] [place] [address] [phone] Pathology Report (12/25/2017 6:00 AM REWORK MACHINE OPERATOR) [facility] gist Method Time Signature Path: FINAL SURGICAL PATHOLOGY REPORT PN SOFT Pathology #: [id number] ? Date Obtained: 12/25/2017 ?Date Received: 12/25/2017 [...] Performed at [facility], [address] [facility], [place] [address] Specimen Anatomical Collection Method Collection Time Receive d Time (Source) Location / / Volume Laterality OTHER / Unknown 12/25/2017 6:00 AM 2017 6:00 REWORK MACHINE OPERATOR AM REWORK MACHINE OPERATOR Igor Kaufman MD LAB_1 Performing Organization Address City/State/ZIP Code Phon e Number PN SOFT [address] [place] [address] documented in this encounter Visit Diagnoses Diagnosis Pap smear of cervix with ASCUS, cannot e xclude HGSIL - Primary Papanicolaou smear of cervix with atypic al squamous cells cannot exclude high grade squamous intraepithelial lesion (ASC-H) documented in this encounter Care Teams Cleaner And Dyer Relationship Specialty Start Date End Date Roselyn Marroquin PA-C PCP - General Physician Human Resource Officer 08/09/16 [address] [place] [address] documented as of this encounter
--- OUTSIDE RECORDS SUMMARY | 2022-07-14 12:16 | XMS_ITS | Encounter Summary ---
:1985 Author Organization [facility] Address [address], [place] [address] Care Team Providers Name Role Phone Lopez Roselyn Lynn PA-C Primary Care Provider Reason for Visit Procedure/Equipment (Routine) - Incomplete Specialty Diagnoses / Procedures Referred By Contact Refer red To Contact Diagnoses Acute left ankle pain Aung Saeed PA-C Procedures XR Foot 3+ Views/Ankle 2 Views Series Lt [address] [place] [address] Referral ID Status Reason Start Date Expiration Date Visits V isits Requested Authorized [id number] Incomplete 05/29/2018 08/28/2019 1 1 Encounter Details Date Type Department Care Team Description 05/29/2018 Imaging [facility] [address] [place] [address] Social History Tobacco Use Types [...] on filedocumented in this encounter Care Teams Fine Grade Bulldozer Operator Relationship Specialty Start Date End Date Roselyn Marroquin PA-C PCP - General Physician Unstacker 08/09/16 [address] [place] [address] documented as of this encounter
--- OUTSIDE RECORDS SUMMARY | 2022-07-14 12:17 | XMS_ITS | Encounter Summary ---
:1985 Author Organization Counts include 234 beds at the [facility] Address [address] [place] [address] Care Team Providers Name Role Phone Unassigned, Provider Primary Care Provider Unavailable Encounter Details Date Type Department Care Team Description 03/04/2009 [place] [address] [address] [place]ER[place] [address] [place] [phone] (Wo rk) Social History Tobacco Use Types [...] 2:22 PM CDT) Analysis Performed At [facility] Time Signature Culture Strep SEE TEXT HP CONVERSION Screen Other Source Comment: Patient: TELLO TERRELL Culture Strep Scr Other Source ?Collected: ??[id number] ??[id number] Source: Vag/Rect ?Processed: ??[id number] ??[id number] ? V Final Report ------ ?[id number] ??[id number] No group A or B Streptococcus isolated Specimen (Source) Anatomical Collection Method Collection Time Re ceived Time Location / / Volume Laterality 03/04/2009 2:22 PM CDT Heri Nesbitt MD LAB_1 Performing Organization Address City/State/ZIP Code Phon e Number HP CONVERSION documented in this encounter Visit Diagnoses Not on filedocumented in this encounter Care Teams Legal Examiner Relationship Specialty Start Date End Date Unassigned, Provider PCP - General 12/01/00 02/17/16 [address] [place] [address] documented as of this encounter
--- OUTSIDE RECORDS SUMMARY | 2022-07-14 12:17 | XMS_ITS | Encounter Summary ---
:1985 Author Organization [facility] Address [address], [place] [address] Care Team Providers Name Role Phone Unassigned, Provider Primary Care Provider Unavailable Encounter Details Date Type Department Care Team Description 01/07/2009 Routine Igor Burroughs Obstetrics/[place] [address] [facility] [address] [place] [address] [place] [address] [phone] (Wo rk) Social History Tobacco Use Types [...] on filedocumented in this encounter Care Teams Pulley Man Relationship Specialty Start Date End Date Unassigned, Provider PCP - General 12/01/00 02/17/16 [address] [place] [address] documented as of this encounter
--- OUTSIDE RECORDS SUMMARY | 2022-07-14 12:17 | XMS_ITS | Encounter Summary ---
:1985 Author Organization [facility] Address [address] [place] [address] Care Team Providers Name Role Phone Unassigned, Provider Primary Care Provider Unavailable Reason for Visit Reason Comments VAGINITIS Urinary Frequency DIZZINESS Encounter Details Date Type Department Care Team Description 01/04/2015 Office Visit [facility] Angela Daniels Urinar y frequency (Primary Dx); Medicine DO Tobacco abuse [address] [address] [place] [address] [phone] Social History Tobacco Use Types Packs/Day Years [...] disorder documented in this encounter Care Teams Wire Wheeler Relationship Specialty Start Date End Date Unassigned, Provider PCP - General 12/01/00 02/17/[address] [place] [address] documented as of this encounter
--- OUTSIDE RECORDS SUMMARY | 2022-07-14 12:17 | XMS_ITS | Encounter Summary ---
:1985 Author Organization [facility] Address [address] [place] [address] Care Team Providers Name Role Phone Unassigned, Provider Primary Care Provider Unavailable Encounter Details Date Type Department Care Team Description 01/07/2009 PN Conversion Only [place] [address] [place] [address] Social History Tobacco Use Types Packs/Day Years [...] on filedocumented in this encounter Care Teams Sql Tech Relationship Specialty Start Date End Date Unassigned, Provider PCP - General 12/01/00 02/17/[address] [place] [address] documented as of this encounter
--- OUTSIDE RECORDS SUMMARY | 2022-07-14 12:17 | XMS_ITS | Encounter Summary ---
:1985 Author Organization [facility] Address [address], [place] [address] Care Team Providers Name Role Phone Unassigned, Provider Primary Care Provider Unavailable Encounter Details Date Type Department Care Team Description 03/04/2009 Routine [place] Heri Nesbitt MD Obstetrics/Gynecolog y [address] [facility] [address] [place], [place] [address] [phone] (Wo rk) Social History Tobacco Use Types [...] on filedocumented in this encounter Care Teams Skate Boarder Relationship Specialty Start Date End Date Unassigned, Provider PCP - General 12/01/00 02/17/16 [address] [place] [address] documented as of this encounter
--- OUTSIDE RECORDS SUMMARY | 2022-07-14 12:17 | XMS_ITS | Encounter Summary ---
:1985 Author Organization [facility] Address [address], [place] [address] Care Team Providers Name Role Phone Unassigned, Provider Primary Care Provider Unavailable Encounter Details Date Type Department Care Team Description 02/18/2009 Routine Igor Burroughs Obstetrics/[place] [address] [facility] [address] [place] [address] [place] [address] [phone] (Wo rk) Social History Tobacco Use Types [...] on filedocumented in this encounter Care Teams Investment Banker Relationship Specialty Start Date End Date Unassigned, Provider PCP - General 12/01/00 02/17/16 [address] [place] [address] documented as of this encounter
--- OUTSIDE RECORDS SUMMARY | 2022-07-14 12:17 | XMS_ITS | Encounter Summary ---
:1985 Author Organization [employer] Address [address], [place] [address] Care Team Providers Name Role Phone Unassigned, Provider Primary Care Provider Unavailable Reason for Visit Reason Comments Patient Calling Back Encounter Details Date Type Department Care Team Description 11/09/2011 Telephone [facility] Arielle Spence Patient Calling Back [address] [place] [address] Social History Tobacco Use [...] further questions or concerns at this time. TY PROGRAM MANAGER Lillian Means - 11/09/2011 12:30 PM CST Pt calling back for results. Neida Delcid RN - 11/09/2011 8:57 AM CST Left message for patient to call back for results. TY PROGRAM MANAGER Arielle Carvajal - 11/09/2011 8:50 AM CST [...] on filedocumented in this encounter Care Teams Choke Setter Relationship Specialty Start Date End Date Unassigned, Provider PCP - General 12/01/00 02/17/[address] [place] [address] documented as of this encounter
--- OUTSIDE RECORDS SUMMARY | 2022-07-14 12:17 | XMS_ITS | Encounter Summary ---
:1985 Author Organization [employer] Address [address], [place] [address] Care Team Providers Name Role Phone Unassigned, Provider Primary Care Provider Unavailable Reason for Visit Reason Comments LAB RESULTS Encounter Details Date Type Department Care Team Description 07/03/2012 Telephone [facility] Arielle Spence LAB RESULTS [address] [place] [address] Social History Tobacco Use Types Packs/Day [...] verbalized understanding. Will discontinue the Bactrim and fern picker the script tonight for the Nitrofurantoin. [...] on filedocumented in this encounter Care Teams Wine Consultant Relationship Specialty Start Date End Date Unassigned, Provider PCP - General 12/01/00 02/17/16 [address] [place] [address] documented as of this encounter
--- OUTSIDE RECORDS SUMMARY | 2022-07-14 12:17 | XMS_ITS | Encounter Summary ---
:1985 Author Organization [facility] Address [address], [place] [address] Care Team Providers Name Role Phone Unassigned, [...] on filedocumented in this encounter Care Teams Retail Banker Relationship Specialty Start Date End Date Unassigned, Provider PCP - General 12/01/00 02/17/16 [address] [place] [address] documented as of this encounter
--- OUTSIDE RECORDS SUMMARY | 2022-07-14 12:17 | XMS_ITS | Encounter Summary ---
:1985 Author Organization [facility] Address [address], [place] [address] Care Team Providers Name Role Phone Unassigned, Provider Primary Care Provider Unavailable Encounter Details Date Type Department Care Team Description 03/18/2009 Routine Igor Burroughs Obstetrics/[place] [address] [facility] [address] [place] [address] [place] [address] [phone] (Wo rk) Social History Tobacco Use Types [...] on filedocumented in this encounter Care Teams Brusher Tender Relationship Specialty Start Date End Date Unassigned, Provider PCP - General 12/01/00 02/17/16 [address] [place] [address] documented as of this encounter
--- OUTSIDE RECORDS SUMMARY | 2022-07-14 12:17 | XMS_ITS | Encounter Summary ---
:1985 Author Organization [facility] Address [address] [place] [address] Care Team Providers Name Role Phone Unassigned, Provider Primary Care Provider Unavailable Encounter Details Date Type Department Care Team Description 07/02/2012 Lab Visit [facility] D[facility]uria [address] [place] [address] Social History Tobacco Use Types Packs/Day [...] on 07/03/2012 at 4:47 PMChanged to Nitrofurantoin ER WAITRESS Miscellaneous - 12/01/2016 2:49 PM CSTNotes Recorded by Arielle Blevins PA-C on 07/03/2012 at 4:47 PMChanged to Nitrofurantoin ER WAITRESS documented in this encounter Plan of Treatment [...] Component Value Ref Test Analysis Performed At [facility] Range Method Time Signature Urine Culture HP [...] (ABNORMAL) URINE MICROSCOPIC (07/02/2012 12:08 PM CDT) [facility] Method Time Signature Urine WBC 0-2 0 [...] - 07/02/2012 12:22 PM CDT Performed at [facility], [address] [place] [id number] Transcriptions 12/01/2016 2:49 PM CSTNotes Recorded by Arielle Blevins PA-C on 07/03/2012 at 4:47 PMChanged to Nitrofurantoin Arielle Blevins LAB_1 Performing Organization Address City/[facility] Code Phon e Number HP CONVERSION (ABNORMAL) URINALYSIS ROUTINE, MICRO/CULTURE IF POS (07/02/2012 12:08 PM CDT) [facility] Method Time Signature Urine Type Urine:clean HP [...] U Specific 1.020 1.005 - HP CONVERSION [place] 1.030 Urobilinogen Negative Negative HP CONVERSION Urine Eu/dL Specimen Anatomical Collection Method Collection Time Receive d Time (Source) Location / / Volume Laterality Urine: 07/02/2012 12:08 07/02/2012 PM CDT 12:08 PM CDT Narrative HP CONVERSION - 07/02/2012 12:22 PM CDT Performed at [facility], [address] [place] [address] Transcriptions 12/01/2016 2:49 PM CSTNotes Recorded by Arielle Blevins PA-C on 07/03/2012 at 4:47 PMChanged to Nitrofurantoin Arielle Blevins LAB_1 Performing Organization Address [facility] Phon e Number HP CONVERSION documented in this encounter Visit Diagnoses Diagnosis Dysuria documented in this encounter Care Teams Watershed Manager Relationship Specialty Start Date End Date Unassigned, Provider PCP - General 12/01/00 02/17/[address] [place] [address] documented as of this encounter
--- OUTSIDE RECORDS SUMMARY | 2022-07-14 12:17 | XMS_ITS | Encounter Summary ---
:1985 Author Organization [facility] Address [address], [place] [address] Care Team Providers Name Role Phone Unassigned, Provider Primary Care Provider Unavailable Reason for Visit Reason Comments Rash Cough Pharyngitis Encounter Details Date Type Department Care Team Description 08/19/2013 Office Visit [facility] Mingo Terrell M D Skin lesion (Primary Dx); Medicine [address] Tinea versicolor; [address] [place], [place] [phone] Social History Tobacco Use Types Packs/Day Years [...] Filed: 08/21/131101 Note Time: 08/20/13822 Status: Signed Freelance Writer: Mingo Terrell MD (Physician) NAME: TELLO TERRELL MR#: [id number] CSN: [id number] AUTHENTICATING CLINICIAN: Mingo Terrell MD CONFIRM #: [id number] LOC: 4402 CLINIC PROGRESS NOTE DATE OF VISIT: 08/19/2013 : 1985 SUBJECTIVE: A 27-year-old, female. She is here with her daughter. 1. The patient complains about rash in her left lower leg, on the lateral side, for a couple months.She has a hoopa around it. She used wwad-uyp-chntqri ringworm cream in the last 3 days, [...] her left lateral foot, she has a hoopa in the size of a quarter. The [...] also was negative, but she was using asuo-cmw-nertdkb medication for depression, anxiety. She will make an appointment and come back. Any concern, back to the clinic. Otherwise, will follow up as above. She agreed. YO:MEDQ C: CONFIRM #: [id number] documented in this encounter Plan of Treatment [...] BETA STREP FOLLOWUP (08/19/2013 5:39 PM CDT) [facility] Method Time Signature Source Throat [...] (08/19/2013 5:28 PM CDT) Analysis Performed At [facility] logist Time Signature Strep A Negative Negative HP CONVERSION Antigen Strep A Source Throat: HP CONVERSION Specimen Anatomical Collection Method Collection Time Receive d Time (Source) Location / / Volume Laterality 08/19/2013 5:28 PM 3 5:39 CDT PM CDT Narrative HP CONVERSION - 08/19/2013 5:43 PM CDT Performed at [facility], [address] [place] [address] Mingo Terrell MD LAB_1 Performing Organization Address [facility] Phon e Number HP CONVERSION TAWANNA Prep (08/19/2013 5:00 PM CDT) [facility] gist Method Time Signature TAWANNA Yeast None Seen HP CONVERSION TAWANNA Fungus None Seen HP CONVERSION TAWANNA Pseudo None Seen HP CONVERSION Hypae TAWANNA Source Skin HP CONVERSION Scraping ( Specimen Anatomical Collection Method Collection Time Receive d Time (Source) Location / / Volume Laterality 08/19/2013 5:00 PM 3 5:01 CDT PM CDT Narrative HP CONVERSION - 08/19/2013 5:02 PM CDT Performed at [facility], [address] [place] [address] Mingo Terrell MD LAB_1 Performing Organization Address City/[facility]/ZIP Code Phon e Number HP CONVERSION documented in this encounter Visit Diagnoses Diagnosis Skin lesion - Primary Unspecified disorder of skin and subcuta neous tissue Tinea versicolor Pityriasis versicolor Acute pharyngitis documented in this encounter Care Teams Warehouse Order Puller Relationship Specialty Start Date End Date Unassigned, Provider PCP - General 12/01/00 02/17/16 [address] [place] [address] documented as of this encounter
--- OUTSIDE RECORDS SUMMARY | 2022-07-14 12:17 | XMS_ITS | Encounter Summary ---
:1985 Author Organization [facility] Address [address], [place] [address] Care Team Providers Name Role Phone Unassigned, Provider Primary Care Provider Unavailable Encounter Details Date Type Department Care Team Description 03/11/2009 Routine [place] Katty Armstrong RN Obstetrics/Gynecolog y [address] [place], [place] [address] Social History Tobacco Use Types Packs/Day Years [...] on filedocumented in this encounter Care Teams Side Piece Coverer Relationship Specialty Start Date End Date Unassigned, Provider PCP - General 12/01/00 02/17/16 [address] [place] [address] documented as of this encounter
--- OUTSIDE RECORDS SUMMARY | 2022-07-14 12:17 | XMS_ITS | Encounter Summary ---
:1985 Author Organization [facility] Address [address], [place] [address] Care Team Providers Name Role Phone Unassigned, Provider Primary Care Provider Unavailable Encounter Details Date Type Department Care Team Description 02/04/2009 Routine [place] Katty Armstrong RN Obstetrics/Gynecolog y [address] [place], [place] [phone] Social History Tobacco Use Types Packs/Day Years [...] filedocumented in this encounter Care Teams Insurance Attorney Relationship Specialty Start Date End Date Unassigned, Provider PCP - General 12/01/00 02/17/16 [address] [place] [address] documented as of this encounter
--- OUTSIDE RECORDS SUMMARY | 2022-07-14 12:17 | XMS_ITS | Encounter Summary ---
:1985 Author Organization [facility] Address [address], [place] [address] Care Team Providers Name Role Phone Unassigned, Provider Primary Care Provider Unavailable Reason for Visit Reason Comments DIZZINESS Back Pain Encounter Details Date Type Department Care Team Description 01/04/2015 Telephone [facility] Pcp, DIZZINESS; Back Pain Medicine Assignment [address] [place] [phone] Social History Tobacco Use Types Packs/Day Years [...] on filedocumented in this encounter Care Teams Loom Checker Relationship Specialty Start Date End Date Unassigned, Provider PCP - General 12/01/00 02/17/[address] [place] [address] documented as of this encounter
--- OUTSIDE RECORDS SUMMARY | 2022-07-14 12:17 | XMS_ITS | Encounter Summary ---
:1985 Author Organization [facility] Address [address] [place] [address] Care Team Providers Name Role Phone Unassigned, Provider Primary Care Provider Unavailable Encounter Details Date Type Department Care Team Description 11/08/2011 Lab Visit [facility] Fatigue [address] [place] [phone] Social History Tobacco Use Types Packs/Day Years Used Date Smoking Tobacco: Never Assessed Sex Assigned at Date Recorded Not on file documented as of this encounter Plan of Treatment Not on filedocumented as of this encounter Procedures Procedure Name Priority Date/Time Associated Diagnosis Comme nts IRON BINDING Routine 11/08/2011 2:03 PM Fatigue Results f or this CAPACITY (INCL INGOT BUGGY OPERATOR procedure are in IRON) the results section. TSH AND FREE T4 Routine 11/08/2011 2:03 PM Fatigue Result s for this (FRT4 IF TSH INGOT BUGGY OPERATOR procedure are i n ABNORM) the results section. VITAMIN D Routine 11/08/2011 2:03 PM Fatigue Results f or this 25-HYDROXY, TOTAL INGOT BUGGY OPERATOR procedure are in the results section. COMPLETE BLOOD Routine 11/08/2011 2:03 PM Fatigue Results for this COUNT-NO DIFF INGOT BUGGY OPERATOR procedure are in the results section. FERRITIN Routine 11/08/2011 2:03 PM Fatigue Results f or this INGOT BUGGY OPERATOR procedure are i n the results section. documented in this encounter Results Ferritin (11/08/2011 2:03 PM INGOT BUGGY OPERATOR) P athologist Signature Ferritin Serum 58 10 - 291 HP CONVERSION ng/mL Specimen Anatomical Collection Method Collection Time Receive d Time (Source) Location / / Volume Laterality 11/08/2011 2:03 PM 2 9:12 INGOT BUGGY OPERATOR PM INGOT BUGGY OPERATOR Arielle Carvajal LAB_1 Performing Organization Address City/State/ZIP Code Phon e Number HP CONVERSION IRON BINDING CAPACITY (INCL IRON) (11/08/2011 2:03 PM INGOT BUGGY OPERATOR) athologist Signature Iron, Serum 126 50 - 165 HP CONVERSION ug/dL Iron Binding 260 250 - 450 HP CONVERSION Capacity ug/dL Iron Saturation 48 20 - 55 % HP CONVERSION Specimen Anatomical Collection Method Collection Time Receive d Time (Source) Location / / Volume Laterality 11/08/2011 2:03 PM 2 9:12 INGOT BUGGY OPERATOR PM INGOT BUGGY OPERATOR Arielle Carvajal LAB_1 Performing Organization Address City/State/ZIP Code Phon e Number HP CONVERSION Hemogram/Plts (11/08/2011 2:03 PM INGOT BUGGY OPERATOR) athologist Signature White Blood Cell 7.2 3.8 [...] Volume Laterality 11/08/2011 2:03 PM 2 2:03 INGOT BUGGY OPERATOR PM INGOT BUGGY OPERATOR Narrative HP CONVERSION - 11/08/2011 2:05 PM INGOT BUGGY OPERATOR Performed at [facility], [address] [place] [address] Arielle Carvajal LAB_1 Performing Organization Address City/State/ZIP [facility] Phon e Number HP CONVERSION Vitamin D 25-Hydroxy, Total (11/08/2011 2:03 PM INGOT BUGGY OPERATOR) athologist Signature Vitamin D 25 Oh 34 20 - 80 HP CONVERSION ng/mL Comment: Deficiency = <20 Adequate ??= 20-29 Preferred = 30-50 Uncertain safety = 51-80 High = >80 Specimen Anatomical Collection Method Collection Time Receive d Time (Source) Location / / Volume Laterality 11/08/2011 2:03 PM 2 9:12 INGOT BUGGY OPERATOR PM INGOT BUGGY OPERATOR Arielle Carvajal LAB_1 Performing Organization Address City/[facility]/ZIP Code Phon e Number HP CONVERSION TSH AND FREE T4 (FRT4 IF TSH ABNORM) (11/08/2011 2:03 PM INGOT BUGGY OPERATOR) P athologist Signature Thyroid 2.21 0.20 - HP CONVERSION Stimulating 4.50 mIU/L Hormone Specimen Anatomical Collection Method Collection Time Receive d Time (Source) Location / / Volume Laterality 11/08/2011 2:03 PM 2 9:12 INGOT BUGGY OPERATOR PM INGOT BUGGY OPERATOR Arielle Carvajal LAB_1 Performing Organization Address City/[facility] Phon e Number HP CONVERSION documented in this encounter Visit Diagnoses Diagnosis Fatigue Other malaise and fatigue documented in this encounter Care Teams Catalyst Recovery Operator Relationship Specialty Start Date End Date Unassigned, Provider PCP - General 12/01/00 02/17/[address] [place] [address] documented as of this encounter
--- OUTSIDE RECORDS SUMMARY | 2022-07-14 12:17 | XMS_ITS | Encounter Summary ---
:1985 Author Organization [facility] Address [address] [place] [address] Care Team Providers Name Role Phone Unassigned, Provider Primary Care Provider Unavailable Encounter Details Date Type Department Care Team Description 01/04/2015 Lab Visit [facility] Urinary frequency [address] [place] [address] Social History Tobacco Use [...] - 11/30/2016 10:12 AM CSTNotes Recorded by nAgela Daniels DO on 01/05/2015 at 11:29 AMdiscussed results with patient. No treatment at this time. R FOLDING MACHINE OPERATOR documented in this encounter Plan of Treatment Not on filedocumented as of this encounter Procedures Procedure Name Priority Date/Time Associated Comments Diagnosis AUTOMATED URINALYSIS Routine 01/04/2015 4:46 PM Urinary freque ncy Results for this DIPSTICK POCT CDT procedure are in the results section. documented in this encounter Results URINE DIPSTICK NPT ALEC OAKES AND ALEKSANDAR ONLY (01/04/2015 4:46 PM CDT) [facility] Method Time Signature Urine Type Urine:clean [...] U Specific 1.015 1.005 - HP CONVERSION [place] 1.030 Urobilinogen Negative Negative HP CONVERSION Urine Eu/dL Turbidity Clear Clear HP CONVERSION Color Yellow HP CONVERSION Specimen Anatomical Collection Method Collection Time Receive d Time (Source) Location / / Volume Laterality 01/04/2015 4:46 PM 5 4:46 CDT PM CDT Narrative HP CONVERSION - 01/04/2015 4:50 PM CDT Performed at [facility], [address] [place] [address] Transcriptions 11/30/2016 10:12 AM CSTNotes Recorded by Angela Daniels DO on 01/05/2015 at 11:29 AMdiscussed results with patient. No treatment at this time. Angela Daniels DO LAB_1 Performing Organization Address City/State/[facility] Code Phon e Number HP CONVERSION documented in this encounter Visit Diagnoses Diagnosis Urinary frequency documented in this encounter Care Teams General Operations Manager Relationship Specialty Start Date End Date Unassigned, Provider PCP - General 12/01/00 02/17/16 [address] [place] [address] documented as of this encounter
--- OUTSIDE RECORDS SUMMARY | 2022-07-14 12:17 | XMS_ITS | Encounter Summary ---
:1985 Author Organization [facility] Address [address] [place] [address] Care Team Providers Name Role Phone Unassigned, Provider Primary Care Provider Unavailable Encounter Details Date Type Department Care Team Description 05/04/2009 Office Visit Katty Odom, RN Obstetrics/Gynecolog y [address] [place] [address] Social History Tobacco Use Types Packs/Day Years [...] in this encounter Progress Notes Katty Armstrong, ELECTRONIC PAGINATION SYSTEM OPERATOR, TECHNICAL MARKETING CONSULTANT - 05/04/2009 12:01 AM CDT Progress Notes signed by BALAJI Kwan at 05/04/09 1254 Author: BALAJI Kwan Service: (none) Author Type: Nurse Practitioner Filed: 02/11/11 1441 Note Time: 05/04/09 0001 Status: Signed Conceptor: BALAJI Kwan (Nurse Practitioner) Post- Visit SUBJECTIVE: [...] [facility] today [facility]. Medications: Reviewed and updated today on [facility]. Tobacco: None. OBJECTIVE: Blood Pressure: 110/70 Height: 65 inches Current Weight: 123 pounds General: Well-developed, well-nourished, and in no apparent distress. Abdomen: Soft, nontender without organomegaly, masses, hernias or inguinal adenopathy. Pelvic: External Genitalia: Normal without lesions. Perineum: Well healed without granulation tissue or tenderness. Bartholin's glands, urethra, Harviell's 9glands without lesions. Vagina: [place], moist and without lesions. Cervix: :Without lesions. [...] on filedocumented in this encounter Care Teams Animal Herder Relationship Specialty Start Date End Date Unassigned, Provider PCP - General 12/01/00 02/17/[address] [place] [address] documented as of this encounter
--- OUTSIDE RECORDS SUMMARY | 2022-07-14 12:17 | XMS_ITS | Encounter Summary ---
:1985 Author Organization [facility] Address [address] [address] Care Team Providers Name Role Phone Unassigned, Provider Primary Care Provider Unavailable Reason for Visit Reason Comments DANNY MUÑOZ Encounter Details Date Type Department Care Team Description 11/08/2011 Office Visit [facility] Arielle Carvajal (Primary Dx); Medicine Plantar oscart [address] [place] [address] Social History Tobacco Use Types Packs/Day Years Used Date Smoking Tobacco: Never Assessed Sex Assigned at Date Recorded Not on file documented as of this encounter Last Filed Vital Signs Vital Sign Reading Time Taken Comments Blood Pressure 121/72 11/08/2011 1:33 PM CLAM DREDGE BOAT CAPTAIN Pulse 94 11/08/2011 1:33 PM CLAM DREDGE BOAT CAPTAIN Temperature 36.4 ??C (97.5 ??F) 11/08/2011 1:33 PM CLAM DREDGE BOAT CAPTAIN Respiratory Rate 16 11/08/2011 1:33 PM CLAM DREDGE BOAT CAPTAIN Oxygen Saturation 96% 11/08/2011 1:33 PM CLAM DREDGE BOAT CAPTAIN Inhaled Oxygen Concentration - - Weight - [...] does not exercise but 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
--- OUTSIDE RECORDS SUMMARY | 2022-07-14 12:17 | XMS_ITS | Encounter Summary ---
:1985 Author Organization [facility] Address [address], [place] [address] Care Team Providers Name Role Phone Unassigned, Provider Primary Care Provider Unavailable Reason for Visit Reason Comments Back Pain WART, PLANTAR Encounter Details Date Type Department Care Team Description 07/02/2012 Office Visit [facility] Arielle Carvajal UTI (u rinary tract infection); Medicine Plantar wart; [address] Need for diphtheria-tetanus- pertussis (Tdap) vaccine; [place], [place] Need for hepat itis vaccination; [address] Need for influenza vaccinati on; [phone] Dysuria Social History Tobacco Use Types Packs/Day [...] Neg - Trace (mg/dL) ??? U Specific [place] 1.020 1.005-1.030 ??? Urobilinogen Urine Negative Negative [...] not specif ied Plantar wart Need for djislnqbyu-todhnqe-ibwtqxkph (T dap) vaccine Need for prophylactic vaccination with c ombined ihxmaijpwh-wcekocf-ouusapzef (DTP) vaccine Need for hepatitis vaccination Need for prophylactic vaccination and in oculation against viral hepatitis Need for influenza vaccination Need for prophylactic vaccination and in oculation against influenza Dysuria documented in this encounter Care Teams Medical Billing Specialist Relationship Specialty Start Date End Date Unassigned, Provider PCP - General 12/01/00 02/17/[address] [place] [address] documented as of this encounter
--- OUTSIDE RECORDS SUMMARY | 2022-07-14 12:17 | XMS_ITS | Encounter Summary ---
:1985 Author Organization [facility] Address [address] [place] [address] Care Team Providers Name Role Phone Unassigned, Provider Primary Care Provider Unavailable Reason for Visit Reason Comments Other Encounter Details Date Type Department Care Team Description 03/29/2009 Telephone Igor Burroughs, Oth er Obstetrics/Gynecolog y [address] [place] [address] [place] [address] [phone] (Wo rk) Social History Tobacco Use Types Packs/Day Years Used Date Smoking Tobacco: Never Assessed Sex Assigned at Date Recorded Not on file documented as of this encounter Progress Notes Center, Message - 03/29/2009 3:56 PM CDT Phone Note filed by [employer] at 02/10/11330 Author: [employer] Service: (none) Author Type: (none) Filed: 02/10/11330 Note Time: 03/29/091555 Status: Signed Weaving Inspector: [employer] (Resource) Front Line Sx Call Caller Name/Relationship:self Primary Hospice Case Manager:sabal Symptom or request?pt delivered on 2jun, was in [place] last night because was having pain, advsd pt to be seen by obg in 1-2 days Is appointment scheduled & when? Head Buyer Tobacco:urban Schneider call back number:[phone] Is it OK to leave a confidential message on this voicemail? *[id number]~[email or web address] Created on 29Mar2009 3:56pm by RIYA SANTOS On 29Mar2009 4:17pm CHOLO YOON wrote: Please call pt. at [phone], ok to leave msg. Delivered 6 normal vaginal delivery. Low back pain started 03/25. went to ED last night, pain ranging from 4-8. episiotomy pain also. Taking dilaudid 2mg, flexerol and stool softner now. On 29Mar2009 4:27pm IGOR STEVENSON wrote: Spoke with pt. Acknowledged by IGOR STEVENSON on 4:27pm RECLAIMER documented in this encounter Plan of Treatment Not on filedocumented as of this encounter Visit Diagnoses Not on filedocumented in this encounter Care Teams Magnetic Healer Relationship Specialty Start Date End Date Unassigned, Provider PCP - General 12/01/00 02/17/[address] [place] [address] documented as of this encounter
--- OUTSIDE RECORDS SUMMARY | 2022-07-14 12:17 | XMS_ITS | Encounter Summary ---
:1985 Author Organization [facility] Address [address] [place] [address] Care Team Providers Name Role Phone Unassigned, Provider Primary Care Provider Unavailable Encounter Details Date Type Department Care Team Description 02/04/2009 PN Conversion Only MILES Igor Montgomery [address] [facility] [place] [address] [address] [place], [place] [address] (Wo rk) Social History [...] TELLO TERRELL Culture Strep Screen, Throat ?Collected: ??[id number] ??[id number] Source: Throat ?Processed: ??[id number] ??[id number] Final Report ------ ?[id number] ??[id number] No beta hemolytic Strep group A isolated . Specimen (Source) Anatomical Collection Method Collection Time Re ceived Time Location / / Volume Laterality 02/04/2009 2:05 PM CDT Igor Kaufman MD LAB_1 Performing Organization Address City/State/ZIP Code Phon e Number HP CONVERSION documented in this encounter Visit Diagnoses Not on filedocumented in this encounter Care Teams Laborer High Density Press Relationship Specialty Start Date End Date Unassigned, Provider PCP - General 12/01/00 02/17/[address] [place] [address] documented as of this encounter
--- OUTSIDE RECORDS SUMMARY | 2022-07-14 12:17 | XMS_ITS | Encounter Summary ---
:1985 Author Organization [facility] Address [address], [place] [address] Care Team Providers Name Role Phone Unassigned, Provider Primary Care Provider Unavailable Reason for Visit Reason Comments DANNY CHAMPAGNE Encounter Details Date Type Department Care Team Description [facility]/2012 [facility] Arielle Carvajal (Primary Medicine Dx) [address] [place] [phone] Social History Tobacco Use Types Packs/Day Years [...] Primary documented in this encounter Care Teams Awning Frame Maker Relationship Specialty Start Date End Date Unassigned, Provider PCP - General 12/01/00 02/17/[address] [place] [address] documented as of this encounter
--- OUTSIDE RECORDS SUMMARY | 2022-07-14 12:17 | XMS_ITS | Encounter Summary ---
:1985 Author Organization [facility] Address [address] [place] [address] Care Team Providers Name Role Phone Unassigned, Provider Primary Care Provider Unavailable Encounter Details Date Type Department Care Team Description 03/23/2009 PN Conversion Only OTHER CONVERSION [address] [place] [address] Social History Tobacco Use Types Packs/Day Years Used Date Smoking Tobacco: Never Assessed Sex Assigned at Date Recorded Not on file documented as of this encounter Plan of Treatment Not on filedocumented as of this encounter Visit Diagnoses Not on filedocumented in this encounter Care Teams Assistant Maintenance Manager Relationship Specialty Start Date End Date Unassigned, Provider PCP - General 12/01/00 02/17/[address] [place] [address] documented as of this encounter
--- OUTSIDE RECORDS SUMMARY | 2022-07-14 12:18 | XMS_ITS | Encounter Summary ---
:1985 Author Organization [facility] Address [address], [place] [address] Care Team Providers Name Role Phone Unassigned, Provider Primary Care Provider Unavailable Encounter Details Date Type Department Care Team Description 10/06/2008 PN Conversion Only MOSQUE CONVERSION Katty Armstrong , RN Social History Tobacco Use Types Packs/Day Years Used Date Smoking Tobacco: Never Assessed Sex Assigned at Date Recorded Not on file documented as of this encounter Plan of Treatment Not on filedocumented as of this encounter Visit Diagnoses Not on filedocumented in this encounter Care Teams Rn Prior Authorization Relationship Specialty Start Date End Date Unassigned, Provider PCP - General 12/01/00 02/17/[address] [place] [address] documented as of this encounter
--- OUTSIDE RECORDS SUMMARY | 2022-07-14 12:18 | XMS_ITS | Encounter Summary ---
:1985 Author Organization [facility] Address [address] [address] Care Team Providers Name Role Phone Unassigned, Provider Primary Care Provider Unavailable Encounter Details Date Type Department Care Team Description 12/10/2008 Routine [place] Katty Armstrong RN Obstetrics/Gynecolog y [address] [place], [place] [address] Social History Tobacco Use Types Packs/Day Years Used Date Smoking Tobacco: Never Assessed Sex Assigned at Date Recorded Not on file documented as of this encounter Last Filed Vital Signs Vital Sign Reading Time Taken Comments Blood Pressure 108/48 12/10/2008 3:24 PM REIMBURSEMENT AUDITOR Pulse 72 12/10/2008 3:24 PM REIMBURSEMENT AUDITOR Temperature - - Respiratory Rate 18 12/10/2008 3:24 PM REIMBURSEMENT AUDITOR Oxygen Saturation - - Inhaled Oxygen Concentration - - Weight 61.5 kg (135 lb 9.3 oz) 12/10/2008 3:24 PM REIMBURSEMENT AUDITOR C : 61.5kg Height - - Body Mass Index 22.56 11/26/2008 2:28 PM REIMBURSEMENT AUDITOR documented in this encounter Plan of Treatment Not on filedocumented as of this encounter Visit Diagnoses Not on filedocumented in this encounter Care Teams Lens Grinder Apprentice Relationship Specialty Start Date End Date Unassigned, Provider PCP - General 12/01/00 02/17/16 [address] [place] [address] documented as of this encounter
--- OUTSIDE RECORDS SUMMARY | 2022-07-14 12:18 | XMS_ITS | Encounter Summary ---
:1985 Author [facility] Address [address] [address] Care Team Providers Name Role Phone Unassigned, Provider Primary Care Provider Unavailable Encounter Details Date Type Department Care Team Description 11/05/2008 Initial Igor Burroughs Obstetrics/[place] [address] [place] [address] [place] [address] [phone] (Wo rk) Social History Tobacco Use Types Packs/Day Years Used Date Smoking Tobacco: Never Assessed Sex Assigned at Date Recorded Not on file documented as of this encounter Last Filed Vital Signs Vital Sign Reading Time Taken Comments Blood Pressure 108/60 11/05/2008 1:16 PM FRAME STRAIGHTENER Pulse - - Temperature - - Respiratory Rate - - Oxygen Saturation - - Inhaled Oxygen Concentration - - Weight 58 kg (127 lb 15.6 oz) 11/05/2008 1:16 PM FRAME STRAIGHTENER C: 58.1kg Height 165.1 cm (5' 5) 11/05/2008 1:16 PM FRAME STRAIGHTENER C: 165.1 cm Body Mass Index 21.3 11/05/2008 1:16 PM FRAME STRAIGHTENER documented in this encounter Plan of Treatment Not on filedocumented as of this encounter Visit Diagnoses Not on filedocumented in this encounter Care Teams Insulation Helper Relationship Specialty Start Date End Date Unassigned, Provider PCP - General 12/01/00 02/17/[address] [place] [address] documented as of this encounter
--- OUTSIDE RECORDS SUMMARY | 2022-07-14 12:18 | XMS_ITS | Encounter Summary ---
:1985 Author Organization [facility] Address [address] [place] [address] Care Team Providers Name Role Phone Unassigned, Provider Primary Care Provider Unavailable Encounter Details Date Type Department Care Team Description 01/06/2009 PN Conversion Only [place] [address] [address] [place] [address] Social History Tobacco Use Types Packs/Day Years Used Date Smoking Tobacco: Never Assessed Sex Assigned at Date Recorded Not on file documented as of this encounter Plan of Treatment Not on filedocumented as of this encounter Visit Diagnoses Not on filedocumented in this encounter Care Teams Beater Lead Relationship Specialty Start Date End Date Unassigned, Provider PCP - General 12/01/00 02/17/[address] [place] [address] documented as of this encounter
--- OUTSIDE RECORDS SUMMARY | 2022-07-14 12:18 | XMS_ITS | Encounter Summary ---
:1985 Author Organization [facility] Address [address] [place] [address] Care Team Providers Name Role Phone Unassigned, Provider Primary Care Provider Unavailable Encounter Details Date Type Department Care Team Description 09/30/2008 PN Conversion Only [facility] [address] [place] [address] Social History Tobacco Use Types Packs/Day Years Used Date Smoking Tobacco: Never Assessed Sex Assigned at Date Recorded Not on file documented as of this encounter Plan of Treatment Not on filedocumented as of this encounter Visit Diagnoses Not on filedocumented in this encounter Care Teams Aircraft Dispatcher Relationship Specialty Start Date End Date Unassigned, Provider PCP - General 12/01/00 02/17/[address] [place] [address] documented as of this encounter
--- OUTSIDE RECORDS SUMMARY | 2022-07-14 12:18 | XMS_ITS | Encounter Summary ---
:1985 Author Organization [facility] Address [address] [place] [address] Care Team Providers Name Role Phone Unassigned, Provider Primary Care Provider Unavailable Reason for Visit Reason Comments Other Encounter Details Date Type Department Care Team Description 10/09/2008 Telephone [facility], Message Other [address] [place] [address] Social History Tobacco Use Types Packs/Day Years Used Date Smoking Tobacco: Never Assessed Sex Assigned at Date Recorded Not on file documented as of this encounter Progress Notes Garita, Message - 10/09/2008 5:01 PM CST Phone Note filed by Gregory Environmental at 02/09/11 7242 Author: Gregory Environmental Service: (none) Author Type: (none) Filed: 02/09/11 1242 Note Time: 10/09/08 1701 Status: Signed Roll On Worker: [facility] Pt notified U/C results 50,000-100,000 e.coli. Pt given rx for Macrobid 100mg 1 po BID x 7 days per Lo Puckett DATABASE ANALYST. Pt informed abx faxed to pharmacy. Pt verified allergies NKDA Created on 09Oct2008 5:01pm by KIRILL TERRELL S CATALOGER documented in this encounter Plan of Treatment Not on filedocumented as of this encounter Visit Diagnoses Not on filedocumented in this encounter Care Teams Sales Representative Jewelry Relationship Specialty Start Date End Date Unassigned, Provider PCP - General 12/01/00 02/17/[address] [place] [address] documented as of this encounter
--- OUTSIDE RECORDS SUMMARY | 2022-07-14 12:18 | XMS_ITS | Encounter Summary ---
:1985 Author Organization [facility] Address [address] [place] [address] Care Team Providers Name Role Phone Unassigned, Provider Primary Care Provider Unavailable Encounter Details Date Type Department Care Team Description 11/19/2008 PN Conversion Only [facility] [address] [address] Social History Tobacco Use Types Packs/Day Years Used Date Smoking Tobacco: Never Assessed Sex Assigned at Date Recorded Not on file documented as of this encounter Plan of Treatment Not on filedocumented as of this encounter Procedures Procedure Name Priority Date/Time Associated Diagnosis Comme nts US OB >/= 14 WEEKS Routine 11/19/2008 2:08 PM Res ults for this 0 DAYS, SINGLE SUPERVISOR POULTRY PROCESSING procedure are in FETUS the results section. documented in this encounter Results US OB >/= 14 Weeks 0 Days, Single Fetus (11/19/2008 2:08 PM SUPERVISOR POULTRY PROCESSING) Anatomical Region Laterality Modality Pelvis Other Specimen (Source) Anatomical Location Collection Method / Collectio n Time Received Time / Laterality Volume Impressions 11/19/2008 2:08 PM SUPERVISOR POULTRY PROCESSING : ? 1. ?? Single ?live intraut erine measuring 20 weeks 3 days by this ultrasound. ? 2. ?survey is unr emarkable. ??Small nonspecific echogenic intracardiac focus. [id number]/rr Dictating MD BOWERS, AVERY Ley MD Narrative 11/19/2008 2:08 PM SUPERVISOR POULTRY PROCESSING COMPARISON: ??None. INDICATION: ??Check size and dates. [...] is unremarkable. Small nonspecific echogenic intracardiac focus. [id number]/rr Dictating AVERY CLARK MD Igor Kaufman MD [facility] documented in this encounter Visit Diagnoses Not on filedocumented in this encounter Care Teams Civil Engineering Designer Relationship Specialty Start Date End Date Unassigned, Provider PCP - General 12/01/00 02/17/[address] [place] [address] documented as of this encounter
--- OUTSIDE RECORDS SUMMARY | 2022-07-14 12:18 | XMS_ITS | Encounter Summary ---
:1985 [facility] Address [address], [place] [address] Care Team Providers Name Role Phone Unassigned, Provider Primary Care Provider Unavailable Encounter Details Date Type Department Care Team Description 10/06/2008 Initial Katty Odom, RN Obstetrics/Gynecolog y [address] [place] [address] Social History Tobacco Use Types Packs/Day Years Used Date Smoking Tobacco: Never Assessed Sex Assigned at Date Recorded Not on file documented as of this encounter Last Filed Vital Signs Vital Sign Reading Time Taken Comments Blood Pressure 90/70 10/06/2008 2:29 PM MASTER OCEAN Pulse - - Temperature - - Respiratory Rate - - Oxygen Saturation - - Inhaled Oxygen Concentration - - Weight 57.2 kg (125 lb 15.9 oz) 10/06/2008 2:29 PM C: 5 7.2kg MASTER OCEAN Height 165.1 cm (5' 5) 10/06/2008 2:29 PM C: 165.1cm MASTER OCEAN Body Mass Index 20.97 10/06/2008 2:29 PM MASTER OCEAN documented in this encounter Progress Notes Katty Armstrong APRN, CNP - 10/06/2008 12:01 AM CST Progress Notes signed by Katty Armstrong APRN, CNP at 10/08/08 0821 Author: BALAJI Kwan Service: (none) Author Type: Nurse Practitioner Filed: 02/11/11 0917 Note Time: 10/06/08 0001 Status: Signed University Tutor: BALAJI Kwan (Nurse Practitioner) New OB visit Subjective: Betty is a 23 year old female who presents to clinic for new OB exam. LMP sometime in early 06/29. She also had one day of very light spotting in early July. Menstrual interval of 28 days. Positive testing the first week of August. She was seen [facility] and had an non-diagnostic [...] and pneumothorax. Had varicella as a child. remodeler history: Patient is a . Denies history of abnormal pap smears or STDs. 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 She is not , but the father [...] 45 minutes, total education time 30. *SH~DNS~newOB ER OCEAN documented in this encounter Plan of Treatment Not on filedocumented as of this encounter Visit Diagnoses Not on filedocumented in this encounter Care Teams Machinist Helper Marine Relationship Specialty Start Date End Date Unassigned, Provider PCP - General 12/01/00 02/17/[address] [place] [address] documented as of this encounter
--- OUTSIDE RECORDS SUMMARY | 2022-07-14 12:18 | XMS_ITS | Encounter Summary ---
:1985 Author Organization [facility] Address [address] [place] [address] Care Team Providers Name Role Phone Unassigned, Provider Primary Care Provider Unavailable Encounter Details Date Type Department Care Team Description 10/06/2008 PN Conversion Only ORIENTAL ORTHODOX CONVERSION Katty Armtsrong , RN Social History Tobacco Use Types Packs/Day Years Used Date Smoking Tobacco: Never Assessed Sex Assigned at Date Recorded Not on file documented as of this encounter Plan of Treatment Not on filedocumented as of this encounter Procedures Procedure Name Priority Date/Time Associated Comments Diagnosis SEXUALLY TRANSMITTED Routine 10/06/2008 4:34 PM R esults for this DISEASE PROBE EYEGLASS FRAME TRUER procedure are in the results section. BLOOD GROUP & RH Routine 10/06/2008 3:22 PM Resul ts for this (BLOOD TYPE) EYEGLASS FRAME TRUER procedure are i n the results section. ANTIBODY SCREEN Routine 10/06/2008 3:22 PM Result s for this EYEGLASS FRAME TRUER procedure are i n the results section. RUBELLA IGG Routine 10/06/2008 3:22 PM Results f or this EYEGLASS FRAME TRUER procedure are i n the results section. HIV ANTIBODY Routine 10/06/2008 3:22 PM Results f or this EYEGLASS FRAME TRUER procedure are i n the results section. RPR BLOOD Routine 10/06/2008 3:22 PM Results f or this EYEGLASS FRAME TRUER procedure are i n the results section. HEP B SURFACE Routine 10/06/2008 3:22 PM Results for this ANTIGEN, NO REFLEX EYEGLASS FRAME TRUER procedure are in the results section. COMPLETE BLOOD Routine 10/06/2008 3:22 PM Results for this COUNT-NO DIFF EYEGLASS FRAME TRUER procedure are in the results section. URINALYSIS Routine 10/06/2008 2:43 PM Results f or this ROUTINE(MICRO IF POS) EYEGLASS FRAME TRUER proced ure are in the results section. URINALYSIS Routine 10/06/2008 2:43 PM Results f or this MICROSCOPIC EYEGLASS FRAME TRUER procedure are i n the results section. URINE CULTURE Routine 10/06/2008 2:43 PM Results for this EYEGLASS FRAME TRUER procedure are i n the results section. ANATOMICAL PATH Routine 10/06/2008 10:46 Results for this LIQUID BASED AM EYEGLASS FRAME TRUER procedure are i n the results section. documented in this encounter Results Sexually Transmitted Disease Probe (10/06/2008 4:34 PM EYEGLASS FRAME TRUER) Patholo gist Method Time Signature Sexually SEE TEXT HP CONVERSION Transmitted Disease Probe Comment: Patient: TELLO TERRELL Sexually Trans Disease Probe ?Collected: ??[id number] ??[id number] Source: ENDOCERV ?Processed: ??[id number] ??[id number] ? V Final Report ------ ?[id number] ??[id number] No Chlamydia trachomatis detected by amp lified DNA assay No Neisseria gonorrhoeae detected by amp lified DNA assay [facility] Amplified DNA assay is royce red by the FDA for non-medicolegal diagnostic testing in the adult population. Specimen (Source) Anatomical Collection Method Collection Time Re ceived Time Location / / Volume Laterality 10/06/2008 4:34 PM EYEGLASS FRAME TRUER Katty Armstrong RN LAB_1 Performing Organization Address City/State/ZIP Code Phon e Number HP CONVERSION Antibody Screen (10/06/2008 3:22 PM EYEGLASS FRAME TRUER) athologist Signature N/O BB NEG No normal HP CONVERSION ANTIBODY range SCREEN Specimen (Source) Anatomical Collection Method Collection Time Re ceived Time Location / / Volume Laterality 10/06/2008 3:22 PM EYEGLASS FRAME TRUER Katty Armstrong RN PN BLOOD BANK ORDERS Performing Organization Address City/State/ZIP Code Phon e Number HP CONVERSION (ABNORMAL) Complete Blood Count-No Diff (10/06/2008 3:22 PM EYEGLASS FRAME TRUER) [facility] gist Method Time Signature White Blood [...] 32.0 - HP CONVERSION Hemoglobin Conc 36.5 Ragland gm/dL RDW 10.9 (L) 11.0 - HP CONVERSION 15.0 % Platelet Count 179 140 - 450 HP CONVERSION k/cmm Specimen (Source) Anatomical Collection Method Collection Time Re ceived Time Location / / Volume Laterality 10/06/2008 3:22 PM EYEGLASS FRAME TRUER Katty Armstrong RN LAB_1 Performing Organization Address [facility]/ZIP Code Phon e Number HP CONVERSION Blood Group & Rh (Blood Type) (10/06/2008 3:22 PM EYEGLASS FRAME TRUER) athologist Signature BB BLOOD TYPE O POS No normal HP CONVERSION (BLOOD GROUP & range RH) Specimen (Source) Anatomical Collection Method Collection Time Re ceived Time Location / / Volume Laterality 10/06/2008 3:22 PM EYEGLASS FRAME TRUER Katty Armstrong RN PN BLOOD BANK ORDERS Performing Organization Address [facility] Code Phon e Number HP CONVERSION Rubella Igg (10/06/2008 3:22 PM EYEGLASS FRAME TRUER) athologist Signature Rubella IgG Immune Immune HP CONVERSION Specimen (Source) Anatomical Collection Method Collection Time Re ceived Time Location / / Volume Laterality 10/06/2008 3:22 PM EYEGLASS FRAME TRUER Katty Armstrong RN LAB_1 Performing Organization Address [facility]/ZIP Code Phon e Number HP CONVERSION RPR Blood (10/06/2008 3:22 PM EYEGLASS FRAME TRUER) P athologist Signature RPR Non Reac Non Reac HP CONVERSION Specimen (Source) Anatomical Collection Method Collection Time Re ceived Time Location / / Volume Laterality 10/06/2008 3:22 PM EYEGLASS FRAME TRUER Katty Armstrong RN LAB_1 Performing Organization Address [facility] Code Phon e Number HP CONVERSION HIV Antibody (10/06/2008 3:22 PM EYEGLASS FRAME TRUER) P athologist Signature HIV 1/HIV 2 Non Reac Non Reac HP CONVERSION Specimen (Source) Anatomical Collection Method Collection Time Re ceived Time Location / / Volume Laterality 10/06/2008 3:22 PM EYEGLASS FRAME TRUER Katty Armstrong RN LAB_1 Performing Organization Address [facility] Code Phon e Number HP CONVERSION Hep B Surface Antigen, No Reflex (10/06/2008 3:22 PM EYEGLASS FRAME TRUER) Analysis Performed At Patho logist Time Signature Hep B Surf Ag Negative Negative HP CONVERSION Specimen (Source) Anatomical Collection Method Collection Time Re ceived Time Location / / Volume Laterality 10/06/2008 3:22 PM EYEGLASS FRAME TRUER Katty Armstrong RN LAB_1 Performing Organization Address [facility] Code Phon e Number HP CONVERSION (ABNORMAL) Urine Culture (10/06/2008 2:43 PM EYEGLASS FRAME TRUER) Patholo gist Method Time Signature Urine Culture SEE TEXT HP CONVERSION (A) Comment: Patient: TELLO TERRELL Culture, Urine ?Collected: ??[id number] ??[id number] Source: Clean Ca ?Processed: ??[id number] ??[id number] ? 1V Final Report ------ ?[id number] ??[id number] 50-100,000 CFU/mL Escherichia coli Susceptibility Testing E COL ??GIANLUCA INTERP: ?S ??AMPICILLIN , AMOX/CLAV ACID, CEFAZOLIN, LEVOFLOXACIN, ?CIPR OFLOXACIN, CEFTRIAXONE, CEFTAZIDIME, GENTAMICIN, ?CEFE PIME, NITROFURANTOIN, TRIMETH-SULFA Specimen (Source) Anatomical Collection Method Collection Time Re ceived Time Location / / Volume Laterality 10/06/2008 2:43 PM EYEGLASS FRAME TRUER Katty Armstrong RN LAB_1 Performing Organization Address City/State/ZIP Code Phon e Number HP CONVERSION (ABNORMAL) Urinalysis Routine(Micro If Pos) (10/06/2008 2:43 PM EYEGLASS FRAME TRUER) [facility] gist Method Time Signature Turbidity Hazy [...] Specific 1.015 1.005 - 25 HP CONVERSION [place] Specimen (Source) Anatomical Collection Method Collection Time Re ceived Time Location / / Volume Laterality 10/06/2008 2:43 PM EYEGLASS FRAME TRUER Katty Armstrong RN LAB_1 Performing Organization Address City/[facility] Code Phon e Number HP CONVERSION (ABNORMAL) Urinalysis Microscopic (10/06/2008 2:43 PM EYEGLASS FRAME TRUER) [facility] Method Time Signature White Blood 0-2/HPF 0 - 3 HP CONVERSION Cells Urine Bacteria Urine Moderate (A) None HP CONVERSIO N Epithelial Few Few /HPF HP CONVERSION Cells Crystals Amorph None HP CONVERSION Specimen (Source) Anatomical Collection Method Collection Time Re ceived Time Location / / Volume Laterality 10/06/2008 2:43 PM EYEGLASS FRAME TRUER Katty Armstrong RN LAB_1 Performing Organization Address [facility] Code Phon e Number HP CONVERSION Pap Smear (10/06/2008 10:46 AM EYEGLASS FRAME TRUER) [facility] gist Method Time Signature PAP Smear SEE TEXT No normal HP CONVERSION Liquid Based range Comment: Patient: TELLO TERRELL ? CERVICAL CYTOLOGY REPORT Pathology # ??[id number] ?Date Obtained: [id number] ? Date Received: [id number] CYTOLOGIC IMPRESSION: Negative for intraepithelial lesion or m alignancy. Verified 10/09/08 by: ??KGM ?(electronic signature) ? LEANN TIONAL DATA LMP: CLINICAL HIST LIQUID BASED PAP CERVICAL SPECIMEN ADEQUACY: ?? Satisfactory. ENDOCERVICAL CELLS: ??Present. Specimen (Source) Anatomical Collection Method Collection Time Re ceived Time Location / / Volume Laterality 10/06/2008 10:46 AM EYEGLASS FRAME TRUER Katty Armstrong RN LAB_1 Performing Organization Address City/State/ZIP Code Phon e Number HP CONVERSION documented in this encounter Visit Diagnoses Not on filedocumented in this encounter Care Teams Sports Information Director Relationship Specialty Start Date End Date Unassigned, Provider PCP - General 12/01/00 02/17/[address] [place] [address] documented as of this encounter
--- OUTSIDE RECORDS SUMMARY | 2022-07-14 12:18 | XMS_ITS | Encounter Summary ---
:1985 Author [facility] Address [address], [place] [address] Care Team Providers Name Role Phone Unassigned, Provider Primary Care Provider Unavailable Encounter Details Date Type Department Care Team Description 11/26/2008 Routine Igor Burroughs Obstetrics/[place] [address] [facility] [address] [place] [address] [place] [address] [phone] (Wo rk) Social History Tobacco Use Types Packs/Day Years Used Date Smoking Tobacco: Never Assessed Sex Assigned at Date Recorded Not on file documented as of this encounter Last Filed Vital Signs Vital Sign Reading Time Taken Comments Blood Pressure 102/60 11/26/2008 2:28 PM EKG/ECG TECHNICIAN Pulse - - Temperature - - Respiratory Rate - - Oxygen Saturation - - Inhaled Oxygen Concentration - - Weight 60.1 kg (132 lb 7.9 oz) 11/26/2008 2:28 PM C: 60 .1kg EKG/ECG TECHNICIAN Height 165.1 cm (5' 5) 11/26/2008 2:28 PM C: 165.1cm EKG/ECG TECHNICIAN Body Mass Index 22.05 11/26/2008 2:28 PM EKG/ECG TECHNICIAN documented in this encounter Plan of Treatment Not on filedocumented as of this encounter Visit Diagnoses Not on filedocumented in this encounter Care Teams Janitor Supervisor Relationship Specialty Start Date End Date Unassigned, Provider PCP - General 12/01/00 02/17/[address] [place] [address] documented as of this encounter
--- OUTSIDE RECORDS SUMMARY | 2022-07-14 12:18 | XMS_ITS | Encounter Summary ---
:1985 Author Organization [facility] Address [address] [place] [address] Care Team Providers Name Role Phone Unassigned, Provider Primary Care Provider Unavailable Encounter Details Date Type Department Care Team Description 10/22/1989 PN Conversion Only CLINICAL STAFF EDUCATOR [address] [place] [address] Social History Tobacco Use Types Packs/Day Years Used Date Smoking Tobacco: Never Assessed Sex Assigned at Date Recorded Not on file documented as of this encounter Plan of Treatment Not on filedocumented as of this encounter Procedures Procedure Name Priority Date/Time Associated Comments Diagnosis ANC RESULT Routine 10/20/1994 1:10 PM Results f or this CONVERSION DEFAULT BILLING COLLECTIONS SPECIALIST procedure are in ORDER the results section. documented in this encounter Results Anc Result Conversion Default Order (10/20/1994 1:10 PM BILLING COLLECTIONS SPECIALIST) Anatomical Region Laterality Modality Other Specimen (Source) Anatomical Location Collection Method / Collectio n Time Received Time / Laterality Volume Narrative 10/20/1994 1:10 PM BILLING COLLECTIONS SPECIALIST CLINICAL DATA: ?COUGH ONE MONTH FINDINGS: ?LINEAR [...] on filedocumented in this encounter Care Teams Rug Renovator Relationship Specialty Start Date End Date Unassigned, Provider PCP - General 12/01/00 02/17/[address] [place] [address] documented as of this encounter
[2022-07-15 14:49] LABS: Strep B DNA Probe Negative (Negative)
== END 2022-07-14 11:46 | disposition home or self-care (01) ==
LOC: NFLDREF 11:46
PROVIDERS: PCP Obstetrics & Gynecology; Visit Provider Physician Assistant
DX: Z34.93 Encounter for supervision of normal pregnancy, unspecified, third trimester (principal); Z3A.35 35 weeks gestation of pregnancy
CPT/HCPCS: 87081; 87653

== ENCOUNTER 2022-08-06 04:10 | Outpatient (CLI) | payer BC, SELFPAY ==
--- OUTSIDE RECORDS SUMMARY | 2022-08-06 04:14 | XMS_ITS | Encounter Summary ---
:1985 Author Organization [facility] Address [address], [place] [address] Care Team Providers Name Role Phone Roselyn Marroquin PA-C Primary Care Provider Encounter Details Date Type Department Care Team Description 01/18/2019 Orders Only [facility] Mariam Herrera, [facility] Dentistry [address] [facility] [address] [place] [address] [place], [place] [address] [phone] Social History Tobacco Use Types Packs/Day Years Used Date Smoking Tobacco: Every Day Cigarettes 0.5 10 Smokeless Tobacco: Never Alcohol Use Standard Drinks/Week Comments Yes 1 (1 standard drink = 0.6 oz pure alcoho l) 1 monthly Sex Assigned at Date Recorded Not on file documented as of this encounter Plan of Treatment Not on filedocumented as of this encounter Visit Diagnoses Not on filedocumented in this encounter Care Teams Program Arranger Relationship Specialty Start Date End Date Roselyn Marroquin PA-C PCP - General Physician Machine Plug Shaper 08/09/16 [address] [place] [address] documented as of this encounter
--- OUTSIDE RECORDS SUMMARY | 2022-08-06 04:14 | XMS_ITS | Encounter Summary ---
:1985 Author Organization [facility] Address [address], [place] [address] Care Team Providers Name Role Phone LopezRoselyn Shane PERAZA Primary Care Provider Reason for Visit Reason Comments Dysuria couple day, blood in urine a nd when wiping Encounter Details Date Type Department Care Team Description 06/26/2018 Office Visit [facility] Jarett Gutierrez MD Acute cystitis with hematuria (Primary D x); Medicine [address] [place] [address] Viral upper respiratory tract infection; [address] [place], [place] Dysuria; [place] [address] Encounter for test, result unk nown [phone] (Wo rk) Social History Tobacco Use Types [...] Body Mass Index 20.03 12/06/2017 9:54 AM MOLD DUMPER documented in this encounter Patient Instructions Patient [...] can you learn more? 1. Go to Red Guru/ChemoCentryx or AVdirect/Lecorpio. 2. Enter K848 in the search box. Current as of: March 02, 2017 Content Version: 11.7 ?? [id number] [employer] 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 Smoking status: [...] - Trace mg/dL Final ??? U Specific [place] 06/26/2018 1.020 1.005 - 1.030 Final ??? [...] Results Test (Urine) (06/26/2018 2:05 PM CDT) athologist Signature Urine Negative PN SOFT Test Specimen (Source) Anatomical Collection Method Collection Time Re ceived Time Location / / Volume Laterality Urine: 06/26/2018 2:05 PM CDT Narrative PN SOFT - 06/26/2018 2:44 PM CDT Performed at [facility], [address] [place] [address] CLIA number [id number] Jarett Gutierrez MD LAB_1 Performing Organization Address [facility] Phon e Number PN SOFT [address] [place] [address] (ABNORMAL) Urine Microscopic (06/26/2018 2:05 PM CDT) [...] - 06/26/2018 2:19 PM CDT Performed at [facility], [address] [place] [address] CLIA number [id number] Jarett Gutierrez MD LAB_1 Performing Organization Address [facility] Phon e Number PN SOFT [address] [place] [address] (ABNORMAL) Urine Culture (06/26/2018 2:05 PM CDT) [...] - 06/27/2018 8:58 PM CDT Performed at [facility], [address] [place] [address], CLIA Number [id number] Jarett Gutierrez MD LAB_1 Performing Organization Address City/[facility] Phon e Number PN SOFT [address] [place] [address] (ABNORMAL) Urinalysis Routine, Micro/Culture if Pos (06/26/2018 2:05 PM CDT) [facility] gist Method Time Signature Urine Type URINE:clean [...] U Specific 1.020 1.005 - PN SOFT [place] 1.030 Urobilinogen Negative Negative PN SOFT Urine Eu/dL Specimen (Source) Anatomical Collection Method Collection Time Re ceived Time Location / / Volume Laterality Urine: 06/26/2018 2:05 PM CDT Narrative PN SOFT - 06/26/2018 2:11 PM CDT Performed at [facility], [address] [place] [address] CLIA number [id number] Jarett Gutierrez MD LAB_1 Performing Organization Address [facility] Phon e Number PN SOFT [address] [place] [address] documented in this encounter Visit Diagnoses Diagnosis Acute cystitis with hematuria - Primary Acute cystitis Viral upper respiratory tract infection Acute upper respiratory infections of un specified site Dysuria Encounter for test, result unk nown documented in this encounter Care Teams Director Risk Relationship Specialty Start Date End Date Roselyn Marroquin PA-C PCP - General Physician Fiscal Clerk 08/09/16 [address] [place] [address] documented as of this encounter
--- OUTSIDE RECORDS SUMMARY | 2022-08-06 04:14 | XMS_ITS | Encounter Summary ---
:1985 Author Organization [facility] Address [address], [place] [address] Care Team Providers Name Role Phone Lopez Roselyn Lynn PA-C Primary Care Provider Reason for Visit Procedure/Equipment (Routine) - Incomplete Specialty Diagnoses / Procedures Referred By Contact Refer red To Contact Diagnoses Acute left ankle pain Aung Saeed PA-C Procedures XR Foot 3+ Views/Ankle 2 Views Series Lt [address] [place] [address] Referral ID Status Reason Start Date Expiration Date Visits V isits Requested Authorized [id number] Incomplete 05/29/2018 08/28/2019 1 1 Encounter Details Date Type Department Care Team Description 05/29/2018 Imaging [facility] [address] [place], [place] [address] Social History Tobacco Use Types Packs/Day Years [...] bony abnormalities. Joint spaces are intact. Aung LYNCH documented in this encounter Visit Diagnoses Not on filedocumented in this encounter Care Teams Box Toe Cementer Relationship Specialty Start Date End Date Roselyn Marroquin PA-C PCP - General Physician Shoe Stitcher 08/09/16 [address] [place] [address] documented as of this encounter
--- OUTSIDE RECORDS SUMMARY | 2022-08-06 04:14 | XMS_ITS | Encounter Summary ---
:1985 Author Organization [facility] Address [address] [place] [address] Care Team Providers Name Role Phone Roselyn Marroquin PA-C Primary Care Provider Encounter Details Date Type Department Care Team Description 08/25/2020 Immunization [place] [address] Flu Need for prophylactic Clinic vaccination and [address] [place] [address] influenza [phone] Social History Tobacco Use Types Packs/Day Years [...] influenza documented in this encounter Care Teams Belt And Link Assembly Supervisor Relationship Specialty Start Date End Date Roselyn Marroquin PA-C PCP - General Physician Glass Cleaning Machine Tender 08/09/[address] [place], [place] [address] documented as of this encounter
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
--- OUTSIDE RECORDS SUMMARY | 2022-08-06 04:14 | XMS_ITS | Encounter Summary ---
:1985 Author Organization [facility] Address [address] [place] [address] Care Team Providers Name Role Phone Roselyn Marroquin PA-C Primary Care Provider Encounter Details Date Type Department Care Team Description 09/26/2019 Lab Visit [facility] Dysuria; [address] Hematuria, [place] [address] Social History Tobacco Use [...] 09/26/2019 3:48 PM Dysuria Results for this [employer] Hematuria, procedure are i n microscopic the results section. AUTOMATED URINALYSIS Routine 09/26/2019 3:48 PM Dysuria R esults for this DIPSTICK POCT [employer] procedure are in the results section. documented in this encounter Results (ABNORMAL) Urine Culture (09/26/2019 3:48 PM [employer] [employer]) Component Value Ref Test Method Analysis Performed Patholog ist Range Time At Signature Urine Growth (A) 09/28/2019 [facility] Culture 10:34 AM [facility]OSPITAL [facility] Urine 10,000 - 50,000 GIANLUCA 09/28/2019 [facility] Culture CFU/mL SENSITIVITY 10:34 AM HOSPITAL Staphylococcus [facility] saprophyticus Specimen Anatomical Collection Method Collection Time Receive d Time (Source) Location / / Volume Laterality Urine URINE SPECIMEN Non-blood 09/26/2019 3:48 PM 019 3:48 COLLECTION, CLEAN Collection / [facility] PM [facility] CATCH / Unknown Unknown [facility] - 09/28/2019 10:[address] Routine testing of urine isolates of Sta phylococcus saprophyticus is not advised, because infections respond to concentrat ions achieved in urine of antimicrobial agents commonly used to treat acute, unc omplicated UTIs (eg, nitrofurantoin, trimethoprim ?? sulfamethoxazole, or a f luoroquinolone). Percy Gutierrez PA-C LAB_1 Performing Organization Address City/State/ZIP Code Phon e Number [address] [address] (ABNORMAL) Urine Dipstick NPT (09/26/2019 3:48 PM [facility]) [facility] Method Time Signature Glucose Urine Negative Negative 09/26/2019 [facility] Qual (mg/dL) 3:55 PM [employer] Bilirubin Negative Negative 09/26/2019 [facility] Urine 3:55 PM [employer] Ketones, Negative Negative 09/26/2019 [facility] Urine (mg/dL) 3:55 PM [employer] Specific 1.015 1.005 - 09/26/2019 [facility] [place], 1.030 3:55 PM [facility] Urine Blood, Urine Trace Neg/Trace 09/26/2019 [facility] 3:55 PM [facility] PH Urine 7.0 5.0 - 8.0 09/26/2019 [facility] 3:55 PM [employer] Protein, Trace Neg/Trace 09/26/2019 [facility] Urine Qual 3:55 PM [employer] [employer] (mg/dL) Urobilinogen, 0.2 <2.0 09/26/2019 [facility] Urine (EU/dL) 3:55 PM [employer] Nitrite Urine Negative Negative 09/26/2019 [facility] 3:55 PM [employer] [employer] Leukocyte Large (A) Negative 09/26/2019 [facility] Est. 3:55 PM [employer] Urine Color Yellow Straw-Yellow 09/26/2019 [facility] 3:55 PM [employer] Urine Clarity Hazy (A) Clear 09/26/2019 [facility] 3:55 PM [employer] Specimen Anatomical Collection Method Collection Time Receive d Time (Source) Location / / Volume Laterality Urine URINE SPECIMEN Non-blood 09/26/2019 3:48 PM 019 3:48 COLLECTION, CLEAN Collection / [employer] PM [facility] [employer] CATCH / Unknown Unknown Percy J Matt PA-C LAB_1 Performing Organization Address City/State/ZIP Code Phon e Number [facility] [address] [place] [address] [facility] [address] [place] [address], [facility] [phone] documented in this encounter Visit Diagnoses Diagnosis Dysuria Hematuria, microscopic Microscopic hematuria documented in this encounter Care Teams Biomechanical Engineer Relationship Specialty Start Date End Date Roselyn Marroquin PA-C PCP - General Physician Car Park Attendant 08/09/16 [address] [place] [address] documented as of this encounter
--- OUTSIDE RECORDS SUMMARY | 2022-08-06 04:14 | XMS_ITS | Encounter Summary ---
:1985 Author Organization [facility] Address [address] [place] [address] Care Team Providers Name Role Phone LopezVinnyRoselyndonald Lynn PA-C Primary Care Provider Reason for Visit Reason Comments Dental Hygiene cc none Encounter Details Date Type Department Care Team Description 01/18/2018 Office Visit [facility] Mariam Herrera, [address] [place] [address] Dental Hygiene (cc Dentistry Yardic, Exam none) [address] [place], [place] [id number] Social History Tobacco Use Types Packs/Day Years [...] in this encounter Patient Instructions Patient InstructionsYareli Jacob RD - 01/18/2018 4:10 PM CDT Your next [...] Examination: 6 months Recall prophy: 6 months REmarabella, monitor 15 MO amalg, small chip on MMR but contact closed NTI Tomas Peralta DDS 01/18/2018, 4:[address] - 01/18/2018 4:10 PM CDT PROPHY NOTE PROPHY/ASSESSMENT:[id number]::PROPHY NOTE Collaborative Agreement: ?? Patient consents to [...] 4:57 PM Routine health VARNISH CDT maintenance [id number]-[id number]-[id number] Routine 01/18/2018 4:57 PM Routine health CDT maintenance PROPHYLAXIS-ADULT Routine 01/18/2018 4:57 PM Routine health RECALL CDT maintenance PERIODIC ORAL Routine 01/18/2018 4:57 PM Routine health EVALUATION CDT maintenance 4 MOD EXISTING Routine 01/05/2017 11:00 PM COMPOSITE FILLING CDT 24 NC EXISTING Routine 01/05/2017 11:00 PM COMPOSITE FILLING CDT 24 NC EXISTING Routine 01/05/2017 11:00 PM COMPOSITE FILLING CDT 31 MO EXISTING Routine 01/05/2017 11:00 PM COMPOSITE FILLING CDT 2 O EXISTING COMPOSITE Routine 01/05/2017 11:00 PM FILLING CDT 8 FI EXISTING COMPOSITE Routine 01/05/2017 11:00 PM FILLING CDT 24 NC EXISTING Routine 01/05/2017 11:00 PM COMPOSITE FILLING [...] induced documented in this encounter Care Teams Scrap Carrier Relationship Specialty Start Date End Date Roselyn Marroquin PA-C PCP - General Physician Hearing Healthcare Practitioner 08/09/16 [address] [place] [address] documented as of this encounter
--- OUTSIDE RECORDS SUMMARY | 2022-08-06 04:14 | XMS_ITS | Encounter Summary ---
:1985 [facility] Address [address], [place] [address] Care Team Providers Name Role Phone Roselyn Marroquin STU Primary Care Provider Reason for Referral Procedure/Equipment (Routine) - Incomplete Specialty Diagnoses / Procedures Referred By Contact Refer red To Contact Diagnoses Acute left ankle pain Aung Saeed PA-C Procedures XR Foot 3+ Views/Ankle 2 Views Series Lt [address] [facility] [address] [place] [address] Referral ID Status Reason Start Date Expiration Date Visits V isits Requested Authorized [id number] Incomplete 05/29/2018 08/28/2019 1 1 Reason for Visit Reason Comments ANKLE PAIN Encounter Details Date Type Department Care Team Description 05/29/2018 Hospital Encounter [facility] Aung Saeed Ac dustin left ankle pain; Esteban Osorio PA-C Sprain of left ankle, unspecified ligame nt, initial encounter [address] [facility] [address] [place] [address] E [phone] [place] [address] Social History Tobacco Use Types Packs/Day Years [...] 12:00 PM CDT NAME: TELLO TERRELL MR#: [id number] CSN: [id number] AUTHENTICATING CLINICIAN: Aung Saeed PA-C CONFIRM #: [id number] LOC: 520 URGENT CARE PROGRESS NOTE DATE [...] it hurts. 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 SSK:JACOBY C: CONFIRM #: [id number] documented in this encounter Plan of Treatment [...] out. documented in this encounter Care Teams Supervisor Assembling Relationship Specialty Start Date End Date Roselyn Marroquin PA-C PCP - General Physician Leasing Agent 08/09/16 [address] [place] [address] documented as of this encounter
--- OUTSIDE RECORDS SUMMARY | 2022-08-06 04:14 | XMS_ITS | Encounter Summary ---
:1985 Author Organization [facility] Address [address], [place] [address] Care Team Providers Name Role Phone Lopez Roselyn Lynn PA-C Primary Care Provider Reason for Visit Reason Comments Dysuria frequency fatigue hematuria [id number] Encounter Details Date Type Department Care Team Description 09/26/2019 Office Visit [facility] Percy Gutierrez, Dysuria (Primary Dx); Medicine PA-C Hematuria, microscopic [address] [address] [place] [phone] [phone] Social History Tobacco Use Types Packs/Day Years [...] Comments Blood Pressure 122/82 09/26/2019 3:41 PM RADIOTELEGRAPH OPERATOR Pulse 88 09/26/2019 3:41 PM RADIOTELEGRAPH OPERATOR Temperature 36.8 ??C (98.2 ??F) 09/26/2019 3:41 PM RADIOTELEGRAPH OPERATOR Respiratory Rate 16 09/26/2019 3:41 PM RADIOTELEGRAPH OPERATOR Oxygen Saturation - - Inhaled Oxygen Concentration - - Weight 52.6 kg (116 lb) 09/26/2019 3:41 PM RADIOTELEGRAPH OPERATOR Height 170.2 cm (5' 7) 09/26/2019 3:41 PM RADIOTELEGRAPH OPERATOR Body Mass Index 18.17 09/26/2019 3:41 PM RADIOTELEGRAPH OPERATOR documented in this encounter Patient Instructions [...] symptoms, feeling sicker, or any other concerns. OTELEGRAPH OPERATOR documented in this encounter Progress Notes Percy Gutierrez PA-C - 09/26/2019 3:20 PM CST Chief Complaint Patient presents with ??? Dysuria frequency fatigue hematuria [id number] History of present illness: Betty Tai is [...] Protein, Urine Qual (mg/dL) Trace 09/26/2019 Specific Supai, Urine 1.015 09/26/2019 Urobilinogen, Urine (EU/dL) 0.2 [...] symptoms, feeling sicker, or any other concerns. OTELEGRAPH OPERATOR documented in this encounter Plan of Treatment Not on filedocumented as of this encounter Results (ABNORMAL) Urine Culture (09/26/2019 3:48 PM RADIOTELEGRAPH OPERATOR) Component Value Ref Test Method Analysis Performed Patholog ist Range Time At Signature Urine Growth (A) 09/28/2019 [facility] Culture 10:34 AM HOSPITAL RADIOTELEGRAPH OPERATOR Urine 10,000 - 50,000 GINALUCA 09/28/2019 [facility] Culture CFU/mL SENSITIVITY 10:34 AM HOSPITAL Staphylococcus RADIOTELEGRAPH OPERATOR saprophyticus Specimen Anatomical Collection Method Collection Time Receive d Time (Source) Location / / Volume Laterality Urine URINE SPECIMEN Non-blood 09/26/2019 3:48 PM 019 3:48 COLLECTION, CLEAN Collection / RADIOTELEGRAPH OPERATOR PM RADIOTELEGRAPH OPERATOR CATCH / Unknown Unknown [facility] - 09/28/2019 10:[address] Routine testing of urine isolates of Sta phylococcus saprophyticus is not advised, because infections respond to concentrat ions achieved in urine of antimicrobial agents commonly used to treat acute, unc omplicated UTIs (eg, nitrofurantoin, trimethoprim ?? sulfamethoxazole, or a f luoroquinolone). Percy Gutierrez PA-C LAB_1 Performing Organization Address City/State/ZIP Code Phon e Number [address] [address] (ABNORMAL) Urine Dipstick NPT (09/26/2019 3:48 PM RADIOTELEGRAPH OPERATOR) Patholo gist Method Time Signature Glucose Urine Negative Negative 09/26/2019 [facility] Qual (mg/dL) 3:55 PM RADIOTELEGRAPH OPERATOR Bilirubin Negative Negative 09/26/2019 [facility] Urine 3:55 PM RADIOTELEGRAPH OPERATOR Ketones, Negative Negative 09/26/2019 [facility] Urine (mg/dL) 3:55 PM RADIOTELEGRAPH OPERATOR Specific 1.015 1.005 - 09/26/2019 [facility] Supai, 1.030 3:55 PM RADIOTELEGRAPH OPERATOR Urine Blood, Urine Trace Neg/Trace 09/26/2019 [facility] 3:55 PM RADIOTELEGRAPH OPERATOR PH Urine 7.0 5.0 - 8.0 09/26/2019 [facility] 3:55 PM RADIOTELEGRAPH OPERATOR Protein, Trace Neg/Trace 09/26/2019 [facility] Urine Qual 3:55 PM RADIOTELEGRAPH OPERATOR (mg/dL) Urobilinogen, 0.2 <2.0 09/26/2019 [facility] Urine (EU/dL) 3:55 PM RADIOTELEGRAPH OPERATOR Nitrite Urine Negative Negative 09/26/2019 [facility] 3:55 PM RADIOTELEGRAPH OPERATOR Leukocyte Large (A) Negative 09/26/2019 [facility] Est. 3:55 PM RADIOTELEGRAPH OPERATOR Urine Color Yellow Straw-Yellow 09/26/2019 [facility] 3:55 PM RADIOTELEGRAPH OPERATOR Urine Clarity Hazy (A) Clear 09/26/2019 [facility] 3:55 PM RADIOTELEGRAPH OPERATOR Specimen Anatomical Collection Method Collection Time Receive d Time (Source) Location / / Volume Laterality Urine URINE SPECIMEN Non-blood 09/26/2019 3:48 PM 019 3:48 COLLECTION, CLEAN Collection / RADIOTELEGRAPH OPERATOR PM RADIOTELEGRAPH OPERATOR CATCH / Unknown Unknown Percy Gutierrez PA-C LAB_1 Performing Organization Address City/State/ZIP Code Phon e Number [facility] [address] [place] [address] [phone] [facility] [address] [place] [address], [facility] documented in this encounter Visit Diagnoses Diagnosis Dysuria - Primary Hematuria, microscopic Microscopic hematuria documented in this encounter Care Teams Buffing Machine Tender Relationship Specialty Start Date End Date Roselyn Marroquin PA-C PCP - General Physician Certified Family Mediator 08/09/16 [address] [place], [place] [id number] documented as of this encounter
--- OUTSIDE RECORDS SUMMARY | 2022-08-06 04:14 | XMS_ITS | Clinical Summary ---
:[address] [facility] Address [address] [facility] [place] [address] Care Team Providers Name Role Phone Roselyn [...] for each transition of care or referral. [employer] Allergies No known active allergies Medications Medication [...] Abnormal Pap smear of cervix 12/18/2017 Overview: [facility] Review: History: 2016: ASCUS HPV+ (non 16/18), [...] (ActHIB) 08/21/1986 Influenza IIV4 (Quadrivalent) 0.5mL 08/25/2020 (05256) MMR 03/02/1986 OPV, Trivalent (Orimune or tOPV) [...] Comments Blood Pressure 122/82 09/26/2019 3:41 PM UNDERWRITER SOLICITATION DIRECTOR Pulse 88 09/26/2019 3:41 PM UNDERWRITER SOLICITATION DIRECTOR Temperature 36.8 ??C (98.2 ??F) 09/26/2019 3:41 PM UNDERWRITER SOLICITATION DIRECTOR Respiratory Rate 16 09/26/2019 3:41 PM UNDERWRITER SOLICITATION DIRECTOR Oxygen Saturation 98% 08/28/2018 4:49 PM UNDERWRITER SOLICITATION DIRECTOR Inhaled Oxygen Concentration - - Weight 52.6 kg (116 lb) 09/26/2019 3:41 PM UNDERWRITER SOLICITATION DIRECTOR Height 170.2 cm (5' 7) 09/26/2019 3:41 PM UNDERWRITER SOLICITATION DIRECTOR Body Mass Index 18.17 09/26/2019 3:41 PM UNDERWRITER SOLICITATION DIRECTOR Plan of Treatment Health Maintenance Due Date [...] e / Group Dates BCBS BCBS PMAP [id number] 2020-Pres [address] icaid BLUE ent [id number] [place] [address] [facility] [id number] 2018-Pre Medicaid DENTAL PLAN ADULT DENTAL sent [phone] [id number] M [address] (Home) [phone] [address] 6 (Work) [id number] [address] Personal/Famil Self 1985 [phone] [facility] M y 6 (Home) [place]ER[place]TON [phone] 6 (Work) Betty Tai Personal/Famil Self 1985 [phone] M y 6 (Home) [place] [address] CHEYENNE MASSEY Personal/Famil Self 06/26/1956 [phone] (Home) [place] [address] Care Teams Cell Manager Relationship Specialty Start Date End Date Roselyn Marroquin PA-C PCP - General Physician Director Of Retail Operations 08/09/16 [address] [place], [place] [id number]
--- OUTSIDE RECORDS SUMMARY | 2022-08-06 04:15 | XMS_ITS | Encounter Summary ---
:1985 Author Organization [employer] Address [address], [place] [address] Care Team Providers Name Role Phone Roselyn Marroquin PA-C Primary Care Provider Reason for Visit Reason Comments Procedure colposcopy Encounter Details Date Type Department Care Team Description 12/25/2017 Procedure Visit [facility] Igor Kaufman Procedure Services-SENIOR TRAINER MD Tucker (colposcopy) [address] [address], [address] [place] [address] [place], [place] [phone] (Wo rk) [address] [phone] Social History Tobacco Use Types Packs/Day Years [...] Patient notified. Pap/HPV advised in 1 year ED LUMBER GRADER Igor Kaufman - 12/25/2017 1:00 PM CST [...] findings. Post biopsy instructions given to patient. ED LUMBER GRADER documented in this encounter Plan of Treatment Not on filedocumented as of this encounter Procedures Procedure Name Priority Date/Time Associated Comments Diagnosis CLINIC OBTAINED Routine 12/25/2017 1:27 PM Pap smear of cervix Results for this ANATOMICAL PATHOLOGY MILLED LUMBER GRADER with ASCUS, cannot p rocedure are in exclude HGSIL the results section. SURGICAL [facility] Routine 12/25/2017 6:00 AM Sandra nicholas for this NICOLLET MILLED LUMBER GRADER procedure are i n the results section. documented in this encounter Results Clinic Obtained Tissue [TIS] (12/25/2017 1:27 PM MILLED LUMBER GRADER) athologist Signature CLINIC Received PN SOFT OBTAINED TISSUE Specimen Anatomical Collection Method Collection Time Receive d Time (Source) Location / / Volume Laterality 12/25/2017 1:27 PM 8 6:26 MILLED LUMBER GRADER PM MILLED LUMBER GRADER Narrative PN SOFT - 12/25/2017 6:52 PM MILLED LUMBER GRADER Performed at [facility], [address] [place] [address] CLIA number [id number] Igor Kaufman MD LAB_1 Performing Organization Address City/State/ZIP Code Phon e Number PN SOFT [address] [place] [address] [phone] Pathology Report (12/25/2017 6:00 AM MILLED LUMBER GRADER) [facility] gist Method Time Signature Path: FINAL SURGICAL PATHOLOGY REPORT PN SOFT Pathology #: [id number] ? Date Obtained: 12/25/2017 ?Date Received: 12/25/2017 [...] microscopic examination has been performed. Performed at [facility], [address] [place] [address] Specimen Anatomical Collection Method Collection Time Receive d Time (Source) Location / / Volume Laterality OTHER / Unknown 12/25/2017 6:00 AM 2017 6:00 MILLED LUMBER GRADER AM MILLED LUMBER GRADER Igor Kaufman MD LAB_1 Performing Organization Address City/State/ZIP Code Phon e Number PN [address] [place] [address] [phone] documented in this encounter Visit Diagnoses Diagnosis Pap smear of cervix with ASCUS, cannot e xclude HGSIL - Primary Papanicolaou smear of cervix with atypic al squamous cells cannot exclude high grade squamous intraepithelial lesion (ASC-H) documented in this encounter Care Teams Supervisor Sample Preparation Relationship Specialty Start Date End Date Roselyn Marroquin PA-C PCP - General Physician Foreign Exchange Clerk 08/09/16 [address] [place] [address] documented as of this encounter
--- OUTSIDE RECORDS SUMMARY | 2022-08-06 04:15 | XMS_ITS | Encounter Summary ---
:1985 Author Organization [facility] Address [address] [place] [address] Care Team Providers Name Role Phone Unassigned, Provider Primary Care Provider Unavailable Encounter Details Date Type Department Care Team Description 01/04/2015 Lab Visit [facility] Urinary frequency [address] [place] [address] Social History Tobacco Use [...] with patient. No treatment at this time. [facility] documented in this encounter Plan of Treatment Not on filedocumented as of this encounter Procedures Procedure Name Priority Date/Time Associated Comments Diagnosis AUTOMATED URINALYSIS Routine 01/04/2015 4:46 PM Urinary freque ncy Results for this DIPSTICK POCT CDT procedure are in the results section. documented in this encounter Results URINE DIPSTICK NPT ALEC OAKES AND ALEKSANDAR ONLY (01/04/2015 4:46 PM CDT) [facility] Method Time Signature Urine Type Urine:clean [...] U Specific 1.015 1.005 - HP CONVERSION Edgar 1.030 Urobilinogen Negative Negative HP CONVERSION Urine Eu/dL Turbidity Clear Clear HP CONVERSION Color Yellow HP CONVERSION Specimen Anatomical Collection Method Collection Time Receive d Time (Source) Location / / Volume Laterality 01/04/2015 4:46 PM 5 4:46 CDT PM CDT Narrative HP CONVERSION - 01/04/2015 4:50 PM CDT Performed at [facility], [address] [place] [address] Transcriptions 11/30/2016 10:12 AM CSTNotes Recorded by Angela Daniels DO on 01/05/2015 at 11:29 AMdiscussed results with patient. No treatment at this time. Angela Daniels DO LAB_1 Performing Organization Address City/State/[facility] Code Phon e Number HP CONVERSION documented in this encounter Visit Diagnoses Diagnosis Urinary frequency documented in this encounter Care Teams General Magistrate Relationship Specialty Start Date End Date Unassigned, Provider PCP - General 12/01/00 02/17/16 [address] [place] [address] documented as of this encounter
--- OUTSIDE RECORDS SUMMARY | 2022-08-06 04:15 | XMS_ITS | Encounter Summary ---
:[address] [facility] Address [address], [place] [address] Care Team Providers Name Role Phone Roselyn Marroquin PA-C Primary Care Provider Reason for Visit Reason Comments Dental Conversion Legacy EDR to Celeste convers ion Encounter Details Date Type Department Care Team Description 03/29/2017 Dental Conversion [place] [facility] Fatmata Sánchez, [facility] [address] [address] [facility] [address] [place], [place] [address] [place], [place] [phone] Social History Tobacco Use Types Packs/Day Years [...] on filedocumented in this encounter Care Teams Sloop Captain Relationship Specialty Start Date End Date Roselyn Marroquin PA-C PCP - General Physician Remelter 08/09/16 [address] [place] [address] documented as of this encounter
--- OUTSIDE RECORDS SUMMARY | 2022-08-06 04:15 | XMS_ITS | Encounter Summary ---
:1985 Author Organization [facility] Address [address] [place] [address] Care Team Providers Name Role Phone Unassigned, Provider Primary Care Provider Unavailable Reason for Visit Reason Comments Other Encounter Details Date Type Department Care Team Description 03/29/2009 Telephone Igor Burroughs, Oth er Obstetrics/Gynecolog y [address] [place] [address] [place] [address] [phone] (Wo rk) Social History Tobacco Use Types Packs/Day Years Used Date Smoking Tobacco: Never Assessed Sex Assigned at Date Recorded Not on file documented as of this encounter Progress Notes Center, Message - 03/29/2009 3:56 PM CDT Phone Note filed by Code [employer] at 02/10/11330 Author: [employer] Service: (none) Author Type: (none) Filed: 02/10/11330 Note Time: 03/29/091555 Status: Signed [employer] Chemistry Teacher: [employer] (Resource) Front Line Sx Call Caller Name/Relationship:self Primary Web Retailer:sabal Symptom or request?pt delivered on 2jun, was in [place] last night because was having pain, advsd pt to be seen by obg in 1-2 days Is appointment scheduled & when? Senior Sql Dba:urban Schneider call back number:[phone] Is it OK to leave a confidential message on this voicemail? *[id number] Created on 29Mar2009 3:56pm by RIYA SANTOS On 29Mar2009 4:17pm CHOLO YOON wrote: Please call pt. at [phone], ok to leave msg. Delivered 6 normal vaginal delivery. Low back pain started 03/25. went to ED last night, pain ranging from 4-8. episiotomy pain also. Taking dilaudid 2mg, flexerol and stool softner now. On 29Mar2009 4:27pm IGOR STEVENSON wrote: Spoke with pt. Acknowledged by IGOR STEVENSON on 4:27pm WINDING MACHINE OPERATOR documented in this encounter Plan of Treatment Not on filedocumented as of this encounter Visit Diagnoses Not on filedocumented in this encounter Care Teams Computer Aided Design Operator Relationship Specialty Start Date End Date Unassigned, Provider PCP - General 12/01/00 02/17/[address] [place] [address] documented as of this encounter
--- OUTSIDE RECORDS SUMMARY | 2022-08-06 04:15 | XMS_ITS | Encounter Summary ---
:1985 Author Organization [facility] Address [address], [place] [address] Care Team Providers Name Role Phone Roselyn Marroquin PA-C Primary Care Provider Encounter Details Date Type Department Care Team Description 12/06/2017 Lab Visit [facility] adult exam [address] [place] [address] Social History Tobacco Use [...] - 12/06/2017 1:00 PM CST Letter sent. STRIAL ORGANIZATION MANAGER documented in this encounter Plan of [...] Volume Laterality 12/06/2017 12/06/2017 11:2 5 AM INDUSTRIAL ORGANIZATION MANAGER Narrative PN SOFT - 12/06/2017 12:35 PM INDUSTRIAL ORGANIZATION MANAGER Performed at [facility], [address] [place] [address] CLIA number [id number] Juaquin Corona MD LAB_1 Performing Organization Address City/[facility] Phon e Number PN SO[address] [place] [address] Glucose (12/06/2017) athologist Signature Lab Glucose 96 70 - 100 PN SOFT mg/dL Comment: The stated glucose range is for the fast ing state. Non-fasting glucose range is 70-180 mg/d L Specimen (Source) Anatomical Collection Method Collection Time Re ceived Time Location / / Volume Laterality 12/06/2017 12/06/2017 11:2 5 AM INDUSTRIAL ORGANIZATION MANAGER Narrative PN SOFT - 12/06/2017 12:35 PM INDUSTRIAL ORGANIZATION MANAGER Performed at [facility], [address] [place] [address] CLIA number [id number] Juaquin Corona MD LAB_1 Performing Organization Address City/[facility] Phon e Number [address] [place] [address] documented in this encounter Visit Diagnoses Diagnosis Well adult exam Routine general medical examination at a health care facility documented in this encounter Care Teams Baker Pie Relationship Specialty Start Date End Date Roselyn Marroquin PA-C PCP - General Physician Plate Corrector 08/09/16 [address] [place] [address] documented as of this encounter
--- OUTSIDE RECORDS SUMMARY | 2022-08-06 04:15 | XMS_ITS | Encounter Summary ---
:1985 Author Organization [facility] Address [address] [place] [address] Care Team Providers Name Role Phone Roselyn Marroquin PA-C Primary Care Provider Reason for Referral Consult/Transfer Care (Routine) - Closed Specialty Diagnoses / Procedures Referred By Contact Refer red To Contact Diagnoses Dysmenorrhea Metrorrhagia Roselyn Marroquin PA-C [address] [place] [address] Referral ID Status Reason Start Date Expiration Date Visits Requ ested Visits Authorized [id number] Closed 08/09/2016 11/08/2017 1 1 Scheduling Instructions Your provider has recommended an appoint ment with [facility]. You may call [phone] to schedule your appointment. If you do [...] Department Care Team Description 08/09/2016 Office Visit [facility] Roselyn Marroquin, Annual physical exam (Primary Dx); Medicine STU Vaginal discharge; [address] [address] [facility] Urinary frequency; [place], [place] Encounter for screening for lipoid disorders; [phone] Screening for diabetes mellitus; [phone] Dysmenorrhea; (Work) Metrorrhagia; Encounter for smoking cessation [...] help with mood and energy. 5) Call SQL DATA ARCHITECT at number below to schedule to discuss Mirena IUD to help decrease the bleeding and cramping with your periods. 6) I'll notify you of your labs. Thanks, Roselyn Marroquin, PAC. documented in this encounter Progress Notes Kellee Ramey RN - 08/17/2016 11:01 AM CDT Quick [...] CBC. Discussed Mirena IUD, will send to hris specialist. Currently isn't doing any control. Is OK [...] pilates 3x per week. 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 Supplements: None. 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 LMP: Patient's last menstrual period was 07/17/2016 (exact date). Pap hx: Does patient have history of abnormal pap smear? yes. Years ago. Past Medical, Family, Surgical and Social History, Drug allergies and Medications have been reviewedand updated in [employer] today. Review of Systems: The remainder of [...] external genitalia and urethra, without lesions noted. [place], moist vaginal and cervical mucosa, without lesions, [...] T4 (FRT4 If TSH Abnorm); Future - Ob-Vp Customer Service Consult Metrorrhagia - CBC - Complete Blood Count-No Diff; Future - TSH And Free T4 (FRT4 If TSH Abnorm); Future - Ob-Vp Customer Service Consult Encounter for smoking cessation counseling (HRC) [...] help with mood and energy. 5) Call SQL DATA ARCHITECT at number below to schedule to discuss Mirena IUD to help decrease the bleeding and cramping with your periods. 6) I'll notify you of your labs. Thanks, Roselyn Marroquin, PAC. documented in this encounter Plan of Treatment Scheduled Referrals Name Type Priority Associated Diagnoses Order S chedule Ob-Vp Customer Service Consult Referral Routine Dysmenorrhea Ordered: 08/09/2016 Metrorrhagia [...] [facility], [address] [place] [address] CLIA number [id number] Roselyn Marroquin PA-C LAB_1 Performing Organization Address City/[facility]/ZIP Code Phon e Number PN SOFT [address] [place] [address] [phone] (ABNORMAL) CBC - Complete Blood Count-No Diff (08/09/2016 2:27 PM CDT) [facility] gist Method Time Signature White Blood [...] - 08/09/2016 2:34 PM CDT Performed at [facility] [place] [address] CLIA number [id number] Roselyn Marroquin PA-C LAB_1 Performing Organization Address City/[facility]/RUST Code Phon e Number PN SOFT [address] [place] [address] Glucose (08/09/2016 2:27 PM CDT) athologist Signature Lab Glucose 91 60 - 100 PN SOFT mg/dL Specimen Anatomical Collection Method Collection Time Receive d Time (Source) Location / / Volume Laterality 08/09/2016 2:27 PM 6 5:08 CDT PM CDT Narrative PN SOFT - 08/09/2016 5:27 PM CDT Performed at [facility], [address] [place] [id number] CLIA number [id number] Roselyn Marroquin PA-C LAB_1 Performing Organization Address [facility] Phon e Number PN SOFT [address] [place] [address] Lipid Panel - LDLD If Trig High [...] - 08/09/2016 5:27 PM CDT Performed at [facility], [address] [place] [address] CLIA number [id number] Roselyn Marroquin PA-C LAB_1 Performing Organization Address [facility] Phon e Number PN SOFT [address] [place] [address] Pap Smear (08/09/2016 2:22 PM CDT) Specimen (Source) Anatomical Collection Method Collection Time Re ceived Time Location / / Volume Laterality 08/09/2016 2:22 PM CDT Narrative PN SOFT - 08/16/2016 3:49 PM CDT FINAL GYNECOLOGICAL CYTOLOGY REPORT Pathology #: [id number] ?Date Obtained: 08/09/2016 ? Date Received: 08/10/2016 INTERPRETATION/RESULTS: Atypical squamous cells of undetermined significance (ASCUS). If requested and applicable, HPV testing wi ll be performed and reported separately, per ACOG guidelines. SPECIMEN ADEQUACY: Satisfactory for Evaluation. ??Endocervi eusebio cells/transformation zone component present. Verified on 08/16/2016 ??by JOSE GRUBER MD (electronic signature) CLINICAL NOTES: ?Abnormal bleeding: No, LMP: 092 [id number], Menstrual status: None ?Apply, Current form of [...] [facility], [address] [place] [address] Roselyn Marroquin PA-C LAB_1 Performing Organization Address City/State/ZIP Code Phon e Number PN SOFT [address] [place] [address] (ABNORMAL) HPV with 16 18 Genotyping (08/09/2016 2:22 PM CDT) [facility] Method Time Signature HPV High Risk [...] and its pe rformance characteristics determined by [facility]. It has not been cleared or approved by [facility]. The laboratory is regulated under CLIA as qualified to perform high-complexity testing. This test is used for clinical purposes. It should not be regarded as investigational or fo r research. Specimen Anatomical Collection Method Collection Time Receive d Time (Source) Location / / Volume Laterality 08/09/2016 2:22 PM 6 2:22 CDT PM CDT Narrative PN SOFT - 08/14/2016 12:22 PM CDT Performed at [address] [address] CLIA number [id number] Roselyn Marroquin PA-C LAB_1 Performing Organization Address [facility] Phon e Number PN SOFT [address] [place] [address] Chlamydia and GC STD (08/09/2016 2:22 PM CDT) [facility] gist Method Time Signature Chlamydia Negative Negative PN SOFT Trachomatis STD Comment: Test Performed by Acute Care Certified Nursing Assistant Mediated Amplification CLIA Number [id number] N. gonorrhoeae STD Negative Negative PN SOFT Comment: Test Performed by Acute Care Certified Nursing Assistant Mediated Amplification Performed at [facility], [address] [place] [address] CLIA Number [id number] Source STD Cervix PN SOFT Comment: CLIA Number [id number] Specimen Anatomical Collection Method Collection Time Receive d Time (Source) Location / / Volume Laterality 08/09/2016 2:22 PM 6 6:50 CDT PM CDT Roselyn Marroquin PA-C LAB_1 Performing Organization Address [facility] Phon e Number PN SOFT [address] [place] [address] Pap Test Order (08/09/2016 2:22 PM CDT) Analysis Performed At [facility] logist Time Signature Pap Smear Collected PN SOFT Monolayer tracking test Specimen Anatomical Collection Method Collection Time Receive d Time (Source) Location / / Volume Laterality 08/09/2016 2:22 PM 6 5:34 CDT AM CDT Roselyn Marroquin PA-C LAB_1 Performing Organization Address [facility]/ZIP Code Phon e Number PN SOFT [address] [place] [address] Vaginitis Panel, DNA Probe (08/09/2016 2:22 PM CDT) [facility] Method Time Signature Trichomonas Not Detected Not Detected PN SOFT vaginalis Gardnerella Not Detected Not Detected PN SOFT vaginalis Alie species Not Detected Not Detected PN SOFT Specimen Anatomical Collection Method Collection Time Receive d Time (Source) Location / / Volume Laterality 08/09/2016 2:22 PM 6 8:41 CDT PM CDT Narrative PN SOFT - 08/10/2016 10:48 AM CDT Performed at [facility], [address] [place] [address] CLIA number [id number] Roselyn Marroquin PA-C LAB_1 Performing Organization Address City/[facility]/ZIP Code Phon e Number PN SOFT [address] [place] [address] UR NPT Hold for Culture (08/09/2016 1:39 PM CDT) [facility] Method Time Signature Urine Type URINE:clean [...] U Specific 1.020 1.005 - PN SOFT [place] 1.030 Urobilinogen Negative Negative PN SOFT Urine Eu/dL Turbidity Clear Clear PN SOFT Color Yellow PN SOFT Specimen Anatomical Collection Method Collection Time Receive d Time (Source) Location / / Volume Laterality 08/09/2016 1:39 PM 6 1:39 CDT PM CDT Narrative PN SOFT - 08/09/2016 1:45 PM CDT Performed at [facility], [address] [place] [address] CLIA number [id number] Roselyn Marroquin PA-C LAB_1 Performing Organization Address City/State/ZIP Code Phon e Number PN SOFT [address] [place] [address] [phone] documented in this encounter Visit Diagnoses Diagnosis Annual physical exam - Primary Routine general medical examination at a health care facility Vaginal discharge Leukorrhea, not specified as infective Urinary frequency Encounter for screening for lipoid disor ders Screening for lipoid disorders Screening for diabetes mellitus Dysmenorrhea Metrorrhagia Encounter for smoking cessation counseli alley ([facility]) Counseling on substance use and abuse Urinary frequency Encounter for screening for lipoid disor ders Screening for lipoid disorders Screening for diabetes mellitus Dysmenorrhea Metrorrhagia documented in this encounter Care Teams Braddisher Relationship Specialty Start Date End Date Roselyn Marroquin PA-C PCP - General Physician Central Services Tech 08/09/16 [address] [place] [address] documented as of this encounter
--- OUTSIDE RECORDS SUMMARY | 2022-08-06 04:15 | XMS_ITS | Encounter Summary ---
:1985 Author Organization [facility] Address [address] [address] Care Team Providers Name Role Phone LopezVinnyRoselyndonald Lynn PA-C Primary Care Provider Encounter Details Date Type Department Care Team Description 08/09/2016 Lab Visit [facility] Urinary frequency [address] [place] [address] Social History Tobacco Use [...] Hold for Culture (08/09/2016 1:39 PM CDT) [facility] Method Time Signature Urine Type URINE:clean [...] U Specific 1.020 1.005 - PN SOFT [place] 1.030 Urobilinogen Negative Negative PN SOFT Urine Eu/dL Turbidity Clear Clear PN SOFT Color Yellow PN SOFT Specimen Anatomical Collection Method Collection Time Receive d Time (Source) Location / / Volume Laterality 08/09/2016 1:39 PM 10/19/201 6 1:39 CDT PM CDT Narrative PN SOFT - 08/09/2016 1:45 PM CDT Performed at [facility] [address] [place] [address] CLIA number [id number] Roselyn Marroquin PA-C LAB_1 Performing Organization Address City/State/ZIP Code Phon e Number PN SOFT [address] [place] [address] documented in this encounter Visit Diagnoses Diagnosis Urinary frequency documented in this encounter Care Teams It Security Manager Relationship Specialty Start Date End Date Roselyn Marroquin PA-C PCP - General Physician Manufacturer'S Representative 08/09/16 [address] [place] [address] documented as of this encounter
--- OUTSIDE RECORDS SUMMARY | 2022-08-06 04:15 | XMS_ITS | Encounter Summary ---
:1985 Author Organization [facility] Address [address], [place] [address] Care Team Providers Name Role Phone Unassigned, Provider Primary Care Provider Unavailable Reason for Visit Reason Comments Rash Cough Pharyngitis Encounter Details Date Type Department Care Team Description 08/19/2013 Office Visit [place] Mingo Terrell M D Skin lesion (Primary Dx); Medicine [address] Tinea versicolor; [address] [place], [place] [phone] Social History Tobacco Use Types Packs/Day Years [...] Filed: 08/21/131101 Note Time: 08/20/13822 Status: Signed Television Cable Installer: Mingo Terrell MD (Physician) NAME: TELLO TERRELL MR#: [id number] CSN: [id number] AUTHENTICATING CLINICIAN: Mingo Terrell MD CONFIRM #: [id number] LOC: 4402 CLINIC PROGRESS NOTE DATE OF VISIT: 08/19/2013 : 1985 SUBJECTIVE: A 27-year-old, female. She is here with her daughter. 1. The patient complains about rash in her left lower leg, on the lateral side, for a couple months.She has a [place] around it. She used jddv-btf-mcvvegx ringworm cream in the last 3 days, [...] her left lateral foot, she has a [place] in the size of a quarter. The [...] also was negative, but she was using ztcl-lgd-aypdmve medication for depression, anxiety. She will make an appointment and come back. Any concern, back to the clinic. Otherwise, will follow up as above. She agreed. YO:MEDQ C: CONFIRM #: [id number] documented in this encounter Plan of Treatment [...] BETA STREP FOLLOWUP (08/19/2013 5:39 PM CDT) [facility] Method Time Signature Source Throat HP CONVERSION [...] 5:28 PM CDT) Analysis Performed At [facility] logist Time Signature Strep A Negative Negative HP CONVERSION Antigen Strep A Source Throat: HP CONVERSION Specimen Anatomical Collection Method Collection Time Receive d Time (Source) Location / / Volume Laterality 08/19/2013 5:28 PM 3 5:39 CDT PM CDT Narrative HP CONVERSION - 08/19/2013 5:43 PM CDT Performed at [facility], [address] [place] [address] Mingo Terrell MD LAB_1 Performing Organization Address [facility] Phon e Number HP CONVERSION TAWANNA Prep (08/19/2013 5:00 PM CDT) [facility] gist Method Time Signature TAWANNA Yeast [...] - 08/19/2013 5:02 PM CDT Performed at [facility], [address] [place] [address] Mingo Terrell MD LAB_1 Performing Organization Address City/[facility]/ZIP Code Phon e Number HP CONVERSION documented in this encounter Visit Diagnoses Diagnosis Skin lesion - Primary Unspecified disorder of skin and subcuta neous tissue Tinea versicolor Pityriasis versicolor Acute pharyngitis documented in this encounter Care Teams Net Trainer Relationship Specialty Start Date End Date Unassigned, Provider PCP - General 12/01/00 02/17/16 [address] [place] [address] documented as of this encounter
--- OUTSIDE RECORDS SUMMARY | 2022-08-06 04:15 | XMS_ITS | Encounter Summary ---
:1985 Author Organization [facility] Address [address] [facility] [place] [address] Care Team Providers Name Role Phone Unassigned, Provider Primary Care Provider Unavailable Reason for Visit Reason Comments VAGINITIS Urinary Frequency DIZZINESS Encounter Details Date Type Department Care Team Description 01/04/2015 Office Visit [facility] Angela Daniels Urinar y frequency (Primary Dx); Medicine DO Tobacco abuse [address] [address] [place] [address] [phone] Social History Tobacco Use Types Packs/Day Years [...] disorder documented in this encounter Care Teams Charter And Tour Bus Driver Relationship Specialty Start Date End Date Unassigned, Provider PCP - General 12/01/00 02/17/[address] [place] [address] documented as of this encounter
--- OUTSIDE RECORDS SUMMARY | 2022-08-06 04:15 | XMS_ITS | Encounter Summary ---
:1985 Author Organization [facility] Address [address] [place] [address] Care Team Providers Name Role Phone Unassigned, Provider Primary Care Provider Unavailable Encounter Details Date Type Department Care Team Description 03/23/2009 PN Conversion Only OTHER CONVERSION [address] [place] [address] Social History Tobacco Use Types Packs/Day Years Used Date Smoking Tobacco: Never Assessed Sex Assigned at Date Recorded Not on file documented as of this encounter Plan of Treatment Not on filedocumented as of this encounter Visit Diagnoses Not on filedocumented in this encounter Care Teams Rug Layer Relationship Specialty Start Date End Date Unassigned, Provider PCP - General 12/01/00 02/17/[address] [place] [address] documented as of this encounter
--- OUTSIDE RECORDS SUMMARY | 2022-08-06 04:15 | XMS_ITS | Encounter Summary ---
:1985 Author Organization [employer] Address [address] [place] [address] Care Team Providers Name Role Phone Roselyn Marroquin PA-C Primary Care Provider Reason for Visit Reason Comments ROUTINE HEALTH MAINTENANCE Encounter Details Date Type Department Care Team Description 12/06/2017 Office Visit [facility] ChloeJuaquin Well ad ult exam (Primary Dx); Medicine Pap smear of cervix reminder not needed forever; [address] [address] [facility] Tinea versicolor; [place], [place] Tobacco abuse [address] [phone] Social History Tobacco Use Types Packs/Day Years [...] Comments Blood Pressure 110/62 12/06/2017 9:54 AM BALANCE TRUER Pulse 88 12/06/2017 9:54 AM BALANCE TRUER Temperature - - Respiratory Rate - - Oxygen Saturation - - Inhaled Oxygen Concentration - - Weight 55.4 kg (122 lb 1.6 oz) 12/06/2017 9:54 AM BALANCE TRUER Height 165.7 cm (5' 5.25) 12/06/2017 9:54 AM BALANCE TRUER Body Mass Index 20.16 12/06/2017 9:54 AM BALANCE TRUER documented in this encounter Progress Notes Sonia Alexander RN - 12/19/2017 12:12 PM CST See telephone encounter initiated 12/19/2017 to notify patient of results. NCE TRUER Juaquin Corona MD - 12/06/2017 10:00 AM [...] (DIFLUCAN) 150 MG tablet 4. Tobacco abuse ([facility]) Z72.0 nicotine (NICODERMCQ) 14 MG/24HR patch 2. [...] year Juaquin Corona MD 9:13 AM 12/07/2017 NCE TRUER documented in this encounter Plan of Treatment Not on filedocumented as of this encounter Procedures Procedure Name Priority Date/Time Associated Comments Diagnosis PAP TEST ORDER Routine 12/06/2017 10:26 AM Pap smear of cervix Results for this BALANCE TRUER reminder not needed procedur e are in forever the results section. HPV WITH 16 18 Routine 12/06/2017 10:26 AM Well adult exam Res ults for this GENOTYPING, BALANCE TRUER procedure are i n CERVICAL/ENDOCERVICA the res ults L section. ANATOMICAL PATH Routine 12/06/2017 10:26 AM Well adult exam Re sults for this LIQUID BASED BALANCE TRUER procedure are i n the results section. documented in this encounter Results Pap Smear (12/06/2017 10:26 AM BALANCE TRUER) Specimen (Source) Anatomical Collection Method Collection Time Re ceived Time Location / / Volume Laterality 12/06/2017 10:26 AM BALANCE TRUER Narrative PN SOFT - 12/16/2017 6:26 PM BALANCE TRUER FINAL GYNECOLOGICAL CYTOLOGY REPORT Pathology #: [id number] ?Date Obtained: 12/06/2017 ? Date Received: 12/07/2017 INTERPRETATION/RESULTS: Atypical squamous cells, cannot exclude high grade squamous intraepithelial lesion (ASC-H). SPECIMEN ADEQUACY: Satisfactory for Evaluation. ??Endocervi eusebio cells/transformation zone component present. Verified on 12/16/2017 ??by HENRIQUE BUENROSTRO MD (electronic signature) CLINICAL NOTES: ?Abnormal bleeding: No, LMP: 012 [id number], Menstrual status: None ?Apply, Current form of [...] false-negative report s may occur. Performed at [facility], [address] [place] [address] Juaquin Corona MD LAB_1 Performing Organization Address City/State/ZIP Code Phon e Number PN SOFT [address] [place] [address] (ABNORMAL) HPV with 16 18 Genotyping (12/06/2017 10:26 AM BALANCE TRUER) [facility] Method Time Signature HPV High Risk Not Detected PN SOFT 16 HPV High Risk Not Detected PN SOFT 18 Other HPV High Detected (A) PN SOFT Risk Not 16/18 Comment: ........................................ ................................. The [facility] HPV Test is a qualitative in v itro test for the detection of Human Papillomavirus in [facility] patient specimens. ??The test utilizes amplifica tion [...] and its pe rformance characteristics determined by [facility] [address]. It has not been cleared or approved by [facility]. The laboratory is regulated under CLIA as qualified to perform high-complexity testing. This test is used for clinical purposes. It should not be regarded as investigational or fo r research. Specimen Anatomical Collection Method Collection Time Receive d Time (Source) Location / / Volume Laterality 12/06/2017 10:26 12/06/2017 AM BALANCE TRUER 10:26 AM BALANCE TRUER Narrative PN SOFT - 12/11/2017 1:11 PM BALANCE TRUER Performed at [address] [address] CLIA number [id number] Juaquin Corona MD LAB_1 Performing Organization Address [facility] Phon e Number PN SOFT [address] [place] [address] Pap Test Order (12/06/2017 10:26 AM BALANCE TRUER) Analysis Performed At [facility] Time Signature Pap Smear Collected PN SOFT Monolayer tracking test Specimen Anatomical Collection Method Collection Time Receive d Time (Source) Location / / Volume Laterality 12/06/2017 10:26 12/07/2017 4:41 AM BALANCE TRUER AM BALANCE TRUER Narrative PN SOFT - 12/06/2017 10:27 AM BALANCE TRUER Performed at [address] [address] CLIA number [id number] Juaquin Corona MD LAB_1 Performing Organization Address [facility] Phon e Number PN SOFT [address] [place] [address] Lipid Panel - LDLD If Trig High [...] Volume Laterality 12/06/2017 12/06/2017 11:2 5 AM BALANCE TRUER Narrative PN SOFT - 12/06/2017 12:35 PM BALANCE TRUER Performed at [facility], [address] [place] [address] CLIA number [id number] Juaquin Corona MD LAB_1 Performing Organization Address [facility] Phon e Number PN SOFT [address] [place] [address] Glucose (12/06/2017) P athologist Signature Lab Glucose 96 70 - 100 PN SOFT mg/dL Comment: The stated glucose range is for the fast ing state. Non-fasting glucose range is 70-180 mg/d L Specimen (Source) Anatomical Collection Method Collection Time Re ceived Time Location / / Volume Laterality 12/06/2017 12/06/2017 11:2 5 AM BALANCE TRUER Narrative PN SOFT - 12/06/2017 12:35 PM BALANCE TRUER Performed at [facility], [address] [place] [address] CLIA number [id number] Juaquin Corona MD LAB_1 Performing Organization Address City/[facility] Phon e Number PN SOFT [address] [place] [address] documented in this encounter Visit Diagnoses Diagnosis [...] facility documented in this encounter Care Teams Document Advisor Relationship Specialty Start Date End Date Roselyn Marroquin PA-C PCP - General Physician Automatic Machine Attendant 08/09/16 [address] [place] [address] documented as of this encounter
--- OUTSIDE RECORDS SUMMARY | 2022-08-06 04:15 | XMS_ITS | Encounter Summary ---
:1985 Author Organization [facility] Address [address] [address] Care Team Providers Name Role Phone Unassigned, Provider Primary Care Provider Unavailable Reason for Visit Reason Comments DIZZINESS Back Pain Encounter Details Date Type Department Care Team Description 01/04/2015 Telephone [facility] Pcp, DIZZINESS; Back Pain Medicine Assignment [address] [place] [address] Social History Tobacco Use Types Packs/Day Years [...] on filedocumented in this encounter Care Teams Shake Packer Relationship Specialty Start Date End Date Unassigned, Provider PCP - General 12/01/00 02/17/[address] [place] [address] documented as of this encounter
--- OUTSIDE RECORDS SUMMARY | 2022-08-06 04:15 | XMS_ITS | Encounter Summary ---
:1985 Author Organization [facility] Address [address], [place] [address] Care Team Providers Name Role Phone Unassigned, Provider Primary Care Provider Unavailable Reason for Visit Reason Comments Back Pain WART, PLANTAR Encounter Details Date Type Department Care Team Description 07/02/2012 Office Visit Adiel Mckinley Arielle Carvajal UTI (u rinary tract infection); Medicine Plantar wart; [address] Need for diphtheria-tetanus- pertussis (Tdap) vaccine; [place], [place] Need for hepat itis vaccination; [address] Need for influenza vaccinati on; [phone] Dysuria Social History Tobacco Use Types Packs/Day [...] Neg - Trace (mg/dL) ??? U Specific [place] 1.020 1.005-1.030 ??? Urobilinogen Urine Negative Negative [...] not specif ied Plantar wart Need for wtzitwoyrf-znrdlpv-pbsdoksls (T dap) vaccine Need for prophylactic vaccination with c ombined kinzjpfakn-hfkpmmm-pesjkxqtt (DTP) vaccine Need for hepatitis vaccination Need for prophylactic vaccination and in oculation against viral hepatitis Need for influenza vaccination Need for prophylactic vaccination and in oculation against influenza Dysuria documented in this encounter Care Teams [employer] Caretaker Relationship Specialty Start Date End Date Unassigned, Provider PCP - General 12/01/00 02/17/[address] [place] [address] documented as of this encounter
--- OUTSIDE RECORDS SUMMARY | 2022-08-06 04:15 | XMS_ITS | Encounter Summary ---
:1985 Author Organization [facility] Address [address] [address] Care Team Providers Name Role Phone Unassigned, Provider Primary Care Provider Unavailable Encounter Details Date Type Department Care Team Description 03/18/2009 Routine Igor Burroughs Obstetrics/[place] [address] [facility] [address] [place] [address] [place] [address] [phone] (Wo rk) Social History Tobacco Use Types [...] on filedocumented in this encounter Care Teams Cell Efficiency Supervisor Relationship Specialty Start Date End Date Unassigned, Provider PCP - General 12/01/00 02/17/16 [address] [place] [address] documented as of this encounter
--- OUTSIDE RECORDS SUMMARY | 2022-08-06 04:15 | XMS_ITS | Encounter Summary ---
:1985 Author Organization [facility] Address [address] [place] [address] Care Team Providers Name Role Phone Unassigned, Provider Primary Care Provider Unavailable Encounter Details Date Type Department Care Team Description 11/08/2011 Lab Visit [facility] [address] [place] [address] Social History Tobacco Use Types Packs/Day Years Used Date Smoking Tobacco: Never Assessed Sex Assigned at Date Recorded Not on file documented as of this encounter Plan of Treatment Not on filedocumented as of this encounter Procedures Procedure Name Priority Date/Time Associated Diagnosis Comme nts IRON BINDING Routine 11/08/2011 2:03 PM Fatigue Results f or this CAPACITY (INCL SECTION LEADER AND MACHINE SETTER procedure are in IRON) the results section. TSH AND FREE T4 Routine 11/08/2011 2:03 PM Fatigue Result s for this (FRT4 IF TSH SECTION LEADER AND MACHINE SETTER procedure are i n ABNORM) the results section. VITAMIN D Routine 11/08/2011 2:03 PM Fatigue Results f or this 25-HYDROXY, TOTAL SECTION LEADER AND MACHINE SETTER procedure are in the results section. COMPLETE BLOOD Routine 11/08/2011 2:03 PM Fatigue Results for this COUNT-NO DIFF SECTION LEADER AND MACHINE SETTER procedure are in the results section. FERRITIN Routine 11/08/2011 2:03 PM Fatigue Results f or this SECTION LEADER AND MACHINE SETTER procedure are i n the results section. documented in this encounter Results Ferritin (11/08/2011 2:03 PM SECTION LEADER AND MACHINE SETTER) P athologist Signature Ferritin Serum 58 10 - 291 HP CONVERSION ng/mL Specimen Anatomical Collection Method Collection Time Receive d Time (Source) Location / / Volume Laterality 11/08/2011 2:03 PM 2 9:12 SECTION LEADER AND MACHINE SETTER PM SECTION LEADER AND MACHINE SETTER Arielle Carvajal LAB_1 Performing Organization Address City/State/ZIP Code Phon e Number HP CONVERSION IRON BINDING CAPACITY (INCL IRON) (11/08/2011 2:03 PM SECTION LEADER AND MACHINE SETTER) athologist Signature Iron, Serum 126 50 - 165 HP CONVERSION ug/dL Iron Binding 260 250 - 450 HP CONVERSION Capacity ug/dL Iron Saturation 48 20 - 55 % HP CONVERSION Specimen Anatomical Collection Method Collection Time Receive d Time (Source) Location / / Volume Laterality 11/08/2011 2:03 PM 2 9:12 SECTION LEADER AND MACHINE SETTER PM SECTION LEADER AND MACHINE SETTER Arielle Carvajal LAB_1 Performing Organization Address City/State/ZIP Code Phon e Number HP CONVERSION Hemogram/Plts (11/08/2011 2:03 PM SECTION LEADER AND MACHINE SETTER) athologist Signature White Blood Cell 7.2 3.8 [...] Volume Laterality 11/08/2011 2:03 PM 2 2:03 SECTION LEADER AND MACHINE SETTER PM SECTION LEADER AND MACHINE SETTER Narrative HP CONVERSION - 11/08/2011 2:05 PM SECTION LEADER AND MACHINE SETTER Performed at [facility], [address] [place] [address] Arielle Carvajal LAB_1 Performing Organization Address City/State/ZIP [facility] Phon e Number HP CONVERSION Vitamin D 25-Hydroxy, Total (11/08/2011 2:03 PM SECTION LEADER AND MACHINE SETTER) athologist Signature Vitamin D 25 Oh 34 20 - 80 HP CONVERSION ng/mL Comment: Deficiency = <20 Adequate ??= 20-29 Preferred = 30-50 Uncertain safety = 51-80 High = >80 Specimen Anatomical Collection Method Collection Time Receive d Time (Source) Location / / Volume Laterality 11/08/2011 2:03 PM 2 9:12 SECTION LEADER AND MACHINE SETTER PM SECTION LEADER AND MACHINE SETTER Arielle Carvajal LAB_1 Performing Organization Address City/[facility]/ZIP Code Phon e Number HP CONVERSION TSH AND FREE T4 (FRT4 IF TSH ABNORM) (11/08/2011 2:03 PM SECTION LEADER AND MACHINE SETTER) P athologist Signature Thyroid 2.21 0.20 - HP CONVERSION Stimulating 4.50 mIU/L Hormone Specimen Anatomical Collection Method Collection Time Receive d Time (Source) Location / / Volume Laterality 11/08/2011 2:03 PM 2 9:12 SECTION LEADER AND MACHINE SETTER PM SECTION LEADER AND MACHINE SETTER Arielle Carvajal LAB_1 Performing Organization Address City/[facility] Phon e Number HP CONVERSION documented in this encounter Visit Diagnoses Diagnosis Fatigue Other malaise and fatigue documented in this encounter Care Teams Gum Sprayer Relationship Specialty Start Date End Date Unassigned, Provider PCP - General 12/01/00 02/17/[address] [place] [address] documented as of this encounter
--- OUTSIDE RECORDS SUMMARY | 2022-08-06 04:15 | XMS_ITS | Encounter Summary ---
:1985 Author Organization [facility] Address [address] [place] [address] Care Team Providers Name Role Phone Needs Pcp, Assignment Primary Care Provider Reason for Visit Reason Onset Date Comments Other 07/31/2016 Encounter Details Date Type Department Care Team Description 07/31/2016 Telephone CODING DEPT ONLY 5050 Needs Pcp, Assignment Other FAMILY MEDICINE [facility] [facility] [address] [place] [place] [address] [address] Social History Tobacco Use Types Packs/Day Years [...] on filedocumented in this encounter Care Teams Restaurant Management Internship Relationship Specialty Start Date End Date Needs Pcp, Assignment PCP - General 02/18/16 08/08/16 [place] [address] documented as of this encounter
--- OUTSIDE RECORDS SUMMARY | 2022-08-06 04:15 | XMS_ITS | Encounter Summary ---
:1985 Author Organization [facility] Address [address], [place] [address] Care Team Providers Name Role Phone Unassigned, [...] on filedocumented in this encounter Care Teams Public Address Technician Relationship Specialty Start Date End Date Unassigned, Provider PCP - General 12/01/00 02/17/16 [address] [place] [address] documented as of this encounter
--- OUTSIDE RECORDS SUMMARY | 2022-08-06 04:15 | XMS_ITS | Encounter Summary ---
:1985 Author Organization [facility] Address [address] [place] [address] Care Team Providers Name Role Phone Roselyn Marroquin PAEarnestine Primary Care Provider Reason for Visit Reason Comments Pharyngitis Encounter Details Date Type Department Care Team Description 11/15/2017 Hospital Encounter [facility] Brenda Mancia, Sore throat; [address] [employer] [place]Earnestine [place] [address] [facility] [phone] [place], [place] [address] (Wo rk) Social History Tobacco Use Types [...] Comments Blood Pressure 109/74 11/15/2017 12:27 PM PROSTHETIC LAB TECHNICIAN Pulse 86 11/15/2017 12:27 PM PROSTHETIC LAB TECHNICIAN Temperature 36.7 ??C (98.1 ??F) 11/15/2017 12:27 PM PROSTHETIC LAB TECHNICIAN Respiratory Rate 16 11/15/2017 12:27 PM PROSTHETIC LAB TECHNICIAN Oxygen Saturation 97% 11/15/2017 12:27 PM PROSTHETIC LAB TECHNICIAN Inhaled Oxygen Concentration - - Weight - - Height - - Body Mass Index - - documented in this encounter Discharge Instructions AttachmentsThe following attachments cannot be sent through Care Everywhere. INFLUENZA (MALAYSIAN)documented in this encounter Medications at Time of [...] 1999 ??? Metrorrhagia ??? Tobacco abuse ([facility]) 01/04/2015 OBJECTIVE: Vital Signs: BP 109/74 Pulse [...] STREP GROUP A WAIVED Narrative: Performed at [facility], [address] [place] [address] CLIA number [id number] BETA STREP RESP CULT Narrative: Performed at [facility], [address] [place] [address], CLIA Number [id number] Orders Placed This Encounter ??? Rapid Strep [...] recognition software and may contain typographic errors. THETIC LAB TECHNICIAN documented in this encounter Plan of Treatment Not on filedocumented as of this encounter Procedures Procedure Name Priority Date/Time Associated Diagnosis Comme nts BETA STREP RESP STAT 11/15/2017 12:40 PM Sore throat Resul ts for this CULT PROSTHETIC LAB TECHNICIAN procedure are i n the results section. GROUP A STREP STAT 11/15/2017 12:29 PM Sore throat Results for this ANTIGEN SCREEN PROSTHETIC LAB TECHNICIAN procedure are in the results section. documented in this encounter Results Strep Screen Culture Throat (CSS) (11/15/2017 12:40 PM PROSTHETIC LAB TECHNICIAN) [facility] gist Method Time Signature Source Throat PN SOFT Site PN SOFT Strep Screen No Group A 11/17/2017 PN SOFT Streptococcus 7:18 AM PROSTHETIC LAB TECHNICIAN Isolated Specimen (Source) Anatomical Collection Method Collection Time Re ceived Time Location / / Volume Laterality Throat: 11/15/2017 12:40 PM PROSTHETIC LAB TECHNICIAN Narrative PN SOFT - 11/17/2017 7:18 AM PROSTHETIC LAB TECHNICIAN Performed at [facility], [address] [place] [address], CLIA Number [id number] Ace PATEL LAB_1 Performing Organization Address City/[facility]/ZIP Code Phon e Number PN SOFT [address] [place] [address] Rapid Strep Group A Waived (RSAW) (11/15/2017 12:29 PM PROSTHETIC LAB TECHNICIAN) athologist Signature Strep A Negative Negative PN SOFT Antigen Strep A Source THROA: PN SOFT Specimen Anatomical Collection Method Collection Time Receive d Time (Source) Location / / Volume Laterality 11/15/2017 12:29 11/15/2017 1:33 PM PROSTHETIC LAB TECHNICIAN PM PROSTHETIC LAB TECHNICIAN Narrative PN SOFT - 11/15/2017 1:35 PM PROSTHETIC LAB TECHNICIAN Performed at [facility], [address] [place] [address] CLIA number [id number] Ace PATEL LAB_1 Performing Organization Address City/[facility]/ZIP Code Phon e Number PN SOFT [address] [place] [address] documented in this encounter Visit Diagnoses Diagnosis Sore throat Acute pharyngitis Viral illness Unspecified viral infection, in conditio ns classified elsewhere and of unspecified site Triage Assessment Note - Alona Matos RN - 11/15/2017 12:25 PM PROSTHETIC LAB TECHNICIAN Patient is an established patient according to [facility] policy and definition? Yes: SORE THROAT: [...] hasextended contact (i.e., day care worker or secondary school special ed teacher) with a person who had strep within the last 10 days. OBJECTIVE Objective exam of patient indicates red throat. Phone number: Telephone Information: Work Phone Not on file. ASSESSMENT Sore throat. Alona Matos RN THETIC LAB TECHNICIAN documented in this encounter Care Teams Molasses Preparer Relationship Specialty Start Date End Date Roselyn Marroquin PA-C PCP - General Physician Propeller Mechanic 08/09/16 [address] [place] [address] documented as of this encounter
--- OUTSIDE RECORDS SUMMARY | 2022-08-06 04:15 | XMS_ITS | Encounter Summary ---
:1985 Author Organization [facility] Address [address], [place] [address] Care Team Providers Name Role Phone Needs Pcp, Assignment Primary Care Provider Reason for Visit Reason Comments Cough Vaginal Discharge Encounter Details Date Type Department Care Team Description 02/18/2016 Hospital Encounter [facility] Trivedi, Acute vaginitis; Care MD Viral URI; [address] [address] [address] Urinary tract infection, site unspecifie d; Drive [place], [place] BV (bacterial vaginosis) [place] [address] [phone] Social History Tobacco Use Types Packs/Day Years [...] continues to smoke 1/2 PPD, is using [employer] dimetapp and it helps. 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 She has had no fevers with [...] components within normal limits Narrative: Performed at [facility], [address] [place] [address] CLIA number [id number] LAB WET PREP - Abnormal; Notable for the following: WETPR Clue Cells Moderate (*) All other components within normal limits Narrative: Performed at [facility], [address] [place] [address] CLIA number [id number] LAB URINE MICROSCOPIC - Abnormal; Notable for the following: Bacteria Urine Moderate (*) All other components within normal limits Narrative: Performed at [facility], [address] [place] [address] CLIA number [id number] X-Rays: Xr Chest * Pa And Left [...] Where can you learn more? Go to [employer] and enter X360 in the search box. Current as of: April 22, 2015 Content Version: 108 ?? [id number] [employer]. Upper Respiratory Infection (Cold): Care Instructions Your [...] include drinking lots of fluids and taking drwd-vek-jdlhqjt pain medicine. You will probably feel better [...] of fluids you drink. ?? Take an pcfp-pvh-usxvvqt pain medicine, such as acetaminophen (Tylenol), ibuprofen (Advil, Motrin), or naproxen (Aleve). Read and follow all instructions on the label. ?? Before you use cough and cold medicines, check the label. These medicines may not be safe for young children or for people with certain health problems. ?? Be careful when taking dlyo-kag-fjljbai cold or flu medicines and Tylenol at [...] Where can you learn more? Go to [employer] and enter K520 in the search box. Current as of: June 11, 2015 Content Version: 108 ?? [phone] [employer] [employer] RTC p.r.n. documented in this encounter Miscellaneous [...] from the original note were not included. [facility] [address] [address] [facility] [address] Dept: [phone] [email or web address] Betty Tai 02/18/2016 2:51 PM UC Description: Female : 1985 Department: [facility] Thank you for choosing [facility] for your health care visit with Awilda Trivedi MD.We are happy to care for you and provide this summary of your visit. Your primary inspector health care facilities is currently listed as Assignment Needs PCP. HERE IS WHAT YOU NEED TO KNOW To learn how you can take steps to stay as healthy as you can be visit [email or web address] Discharge Instructions Bacterial Vaginosis: Care Instructions Your [...] Where can you learn more? Go to [employer] and enter X360 in the search box. Current as of: April 22, 2015 Content Version: 108 ?? [id number] [employer] [facility], [facility]. Upper Respiratory Infection (Cold): Care Instructions Your [...] include drinking lots of fluids and taking hrnv-tpn-zzehkql pain medicine.You will probably feel better in [...] of fluids you drink. ?? Take an ylip-jaf-yaswpyy pain medicine, such as acetaminophen (Tylenol), ibuprofen (Advil, Motrin), or naproxen (Aleve). Read and follow all instructions on the label. ?? Before you use cough and cold medicines, check the label. These medicines may not be safe for young children or for people with certain health problems. ?? Be careful when taking ysjx-ide-ywvvdzz cold or flu medicines and Tylenol at [...] Where can you learn more? Go to [employer] and enter K520 in the search box. Current as of: June 11, 2015 Content Version: 108 ?? [id number] [employer]. HERE IS WHAT YOU NEED TO DO Call your clinic if: You develop new symptoms Your symptoms worsen unexpectedly You are not improving as expected You have questions about your visit or medications Your to do list Future Orders Complete By Ordering Dept. PHYSICAL THERAPY CONSULT ADULT/PEDS ([facility]) As directed [facility] Scheduling Instructions: Your provider has recommended an appointment with [facility]. You may call [phone] to schedule your appointment. If you prefer, a program scheduler will contact you within the next [...] Negative Neg - Trace mg/dL U Specific [place] 1.015 1.005 - 1.030 Urobilinogen Urine Negative [...] Ethnicity Preferred Language 1985 Female White Non- Citizen Of [place] This document contains confidential information about your [...] (ABNORMAL) URINE MICROSCOPIC (02/18/2016 3:40 PM CDT) [facility] MustHaveMenus Method Time Signature Urine WBC 0-2 0 [...] - 02/18/2016 4:04 PM CDT Performed at [facility], [address] [place] [address] CLIA number [id number] Awilda Trivedi MD LAB_1 Performing Organization Address City/State/ZIP Code Phon e Number HP CONVERSION (ABNORMAL) WET PREP (02/18/2016 3:40 PM CDT) [facility] MustHaveMenus Method Time Signature WETPR White Moderate None [...] - 02/18/2016 3:51 PM CDT Performed at [facility], [facility] [address] [place] [address] CLIA number [id number] Awilda Trivedi MD LAB_1 Performing Organization Address [facility] Phon e Number HP CONVERSION (ABNORMAL) URINALYSIS ROUTINE(MICRO IF POS) (02/18/2016 3:40 PM CDT) [facility] Method Time Signature Urine Type Urine:clean [...] U Specific 1.015 1.005 - HP CONVERSION [place] 1.030 Urobilinogen Negative Negative HP CONVERSION Urine Eu/dL Specimen Anatomical Collection Method Collection Time Receive d Time (Source) Location / / Volume Laterality Urine: 02/18/2016 3:40 PM 6 3:46 CDT PM CDT Narrative HP CONVERSION - 02/18/2016 4:04 PM CDT Performed at [facility], [facility] [address] [place] [address] CLIA number [id number] Awilda Trivedi MD LAB_1 Performing Organization Address [facility] Phon e Number HP CONVERSION documented [...] that is more due to the coughing. DWORK COORDINATOR documented in this encounter Care Teams Equipment Technician Relationship Specialty Start Date End Date Needs Pcp, Assignment PCP - General 02/18/16 08/08/16 [place] [address] documented as of this encounter
--- OUTSIDE RECORDS SUMMARY | 2022-08-06 04:15 | XMS_ITS | Encounter Summary ---
:1985 Author Organization [employer] Address [address], [place] [address] Care Team Providers Name Role Phone Unassigned, Provider Primary Care Provider Unavailable Reason for Visit Reason Comments Patient Calling Back Encounter Details Date Type Department Care Team Description 11/09/2011 Telephone [facility] Arielle Spence Patient Calling Back [address] [place] [address] Social History Tobacco Use [...] further questions or concerns at this time. ICAL DOCUMENTATION CONSULTANT Lillian Means - 11/09/2011 12:30 PM CST Pt calling back for results. Neida Delcid RN - 11/09/2011 8:57 AM CST Left message for patient to call back for results. ICAL DOCUMENTATION CONSULTANT Arielle Carvajal - 11/09/2011 8:50 AM CST [...] on filedocumented in this encounter Care Teams Audio Operator Relationship Specialty Start Date End Date Unassigned, Provider PCP - General 12/01/00 02/17/[address] [place] [address] documented as of this encounter
--- OUTSIDE RECORDS SUMMARY | 2022-08-06 04:15 | XMS_ITS | Encounter Summary ---
:1985 Author Organization [facility] Address [address] [place] [address] Care Team Providers Name Role Phone Roselyn Marroquin PA-C Primary Care Provider Reason for Visit Reason Onset Date Comments RESULTS, TEST 08/17/2016 Encounter Details Date Type Department Care Team Description 08/17/2016 Telephone [facility] Roselyn Michael PA-C RESULTS, TEST [address] [address] [place] [address] [place], [place] [phone] (Wo rk) Social History Tobacco Use Types Packs/Day Years Used Date Smoking Tobacco: Every Day Cigarettes 0.5 Alcohol Use Standard Drinks/Week Comments Yes 1 (1 standard drink = 0.6 oz pure alcoho l) 1 monthly Sex Assigned at Date Recorded Not on file documented as of this encounter Nursing Notes Roselyn Marroquin PA-C - 08/30/2016 11:43 AM CST Thanks for the FYI. HRK R OPERATOR VACUUM PAN SALT Kellee Ramey, RN - 08/30/2016 11:20 AM CST Called pt and gave her test results. The patient indicates understanding of these issues and agrees with the plan. Future Appointments Date Time Provider Department Center 09/05/2016 1:00 PM Igor Kaufman MD [facility] PN POE FR R OPERATOR VACUUM PAN SALT Kellee Ramey RN - 08/17/2016 10:59 AM CDT Pt had appt with Kylah on 08/09/16. Called pt with pap results of ASCUS, HPV+ other, colp indicated. Attempted to call pt, no vmail set up. Will try again documented in this encounter Plan of Treatment Not on filedocumented as of this encounter Visit Diagnoses Not on filedocumented in this encounter Care Teams Tinner Automatic Relationship Specialty Start Date End Date Roselyn Marroquin PARavinderC PCP - General Physician Agriculture Extension Specialist 08/09/16 [address] [place] [address] documented as of this encounter
--- OUTSIDE RECORDS SUMMARY | 2022-08-06 04:15 | XMS_ITS | Encounter Summary ---
:1985 Author Organization [facility] Address [address] [place] [address] Care Team Providers Name Role Phone Roselyn Marroquin PA-C Primary Care Provider Reason for Visit Reason Comments COLPOSCOPY Encounter Details Date Type Department Care Team Description 09/05/2016 Procedure Visit [facility] Igor Stevenson COLPOSCOPY Services-SEAM HAMMERER MD Tucker [address] [place] [address], [address] [place] [address] [address] [place] [address] [place], [place] [phone] (Wo rk) [address] [phone] Social History Tobacco Use Types Packs/Day Years Used Date Smoking Tobacco: Every Day Cigarettes 0.5 Alcohol Use Standard Drinks/Week Comments Yes 1 (1 standard drink = 0.6 oz pure alcoho l) 1 monthly Sex Assigned at Date Recorded Not on file documented as of this encounter Progress Notes Igor Stevenson - 09/05/2016 2:20 PM DIVISION SERVICE MANAGER Addended by: IGOR STEVENSON on: 09/05/2016 02:20 PM Modules accepted: Orders SION SERVICE MANAGER Igor Stevenson - 09/05/2016 1:38 PM [...] findings. Post biopsy instructions given to patient. SION SERVICE MANAGER Igor Stevenson - 09/05/2016 1:35 PM DIVISION SERVICE MANAGER Quick Note: Patient notified SION SERVICE MANAGER documented in this encounter Plan of Treatment Not on filedocumented as of this encounter Procedures Procedure Name Priority Date/Time Associated Comments Diagnosis CLINIC OBTAINED Routine 09/05/2016 2:33 PM ASCUS with positive Results for this ANATOMICAL PATHOLOGY DIVISION SERVICE MANAGER high risk HPV proced ure are in cervical the results section. SURGICAL BONY GROVER Routine 09/05/2016 2:33 PM Re sults for this NICOLLET DIVISION SERVICE MANAGER procedure are i n the results section. POCT URINE Routine 09/05/2016 1:15 PM Encounter for Results for this DIVISION SERVICE MANAGER test, procedure ar e in result unknown the results section. documented in this encounter Results Pathology Report (09/05/2016 2:33 PM DIVISION SERVICE MANAGER) Specimen (Source) Anatomical Collection Method Collection Time Re ceived Time Location / / Volume Laterality 09/05/2016 2:33 PM DIVISION SERVICE MANAGER Narrative PN SOFT - 09/07/2016 10:36 AM DIVISION SERVICE MANAGER FINAL SURGICAL PATHOLOGY REPORT Pathology #: [id number] ? Date Obtained: 09/05/2016 ?Date Received: 09/06/2016 [...] MICROSCOPIC DESCRIPTION: Microscopic examination performed Performed at [facility], [facility] [place] [address] Igor Stevenson MD LAB_1 Performing Organization Address City/[facility] Phon e Number PN SOFT [address] [place] [address] Clinic Obtained Tissue [TIS] (09/05/2016 2:33 PM DIVISION SERVICE MANAGER) P athologist Signature CLINIC Received PN SOFT OBTAINED TISSUE Specimen Anatomical Collection Method Collection Time Receive d Time (Source) Location / / Volume Laterality 09/05/2016 2:33 PM 6 2:32 DIVISION SERVICE MANAGER AM DIVISION SERVICE MANAGER Narrative PN SOFT - 09/06/2016 2:33 AM DIVISION SERVICE MANAGER Performed at [facility], [address] [place] [address] CLIA number [id number] Igor Stevenson MD LAB_1 Performing Organization Address [facility] Phon e Number PN SOFT [address] [place] [address] POCT urine (09/05/2016 1:15 PM DIVISION SERVICE MANAGER) [facility] gist Method Time Signature Urine Negative PN EXTERNAL Test - POC LAB-SEE SCANNED DOCUMENT Control Line Yes PN EXTERNAL Present, Clear LAB-SEE Background - SCANNED Internal DOCUMENT control Cartridge Lot# [id number] PN EXTERNAL LAB-SEE SCANNED DOCUMENT Comment: exp: Specimen (Source) Anatomical Collection Method Collection Time Re ceived Time Location / / Volume Laterality Urine specimen 09/05/2016 1:15 PM (specimen) DIVISION SERVICE MANAGER Igor Stevenson MD PN POINT OF CARE TESTS Performing Organization Address City/State/ZIP Code Phon e Number PN EXTERNAL LAB-SEE SCANNED DOCUMENT documented in this encounter Visit Diagnoses Diagnosis 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
--- OUTSIDE RECORDS SUMMARY | 2022-08-06 04:15 | XMS_ITS | Encounter Summary ---
:[address] [facility] Address [address] [place] [address] Care Team Providers Name Role Phone Roselyn Marroquin PA-C Primary Care Provider Reason for Visit Reason Onset Date Comments Medication Questions 08/09/2016 seeking clarity on medication's directions Encounter Details Date Type Department Care Team Description 08/09/2016 Telephone [facility] Roselyn Marroquin, Medicat ion Questions Medicine STU [place] [address] [address] [facility] medication's directions [place], [place] [address] ) [address] [phone] Social History Tobacco Use Types Packs/Day Years [...] filedocumented in this encounter Care Teams Automotive Artist Relationship Specialty Start Date End Date Roselyn Marroquin PA-C PCP - General Physician Electrical Supervisor 08/09/16 [address] [place] [address] documented as of this encounter
--- OUTSIDE RECORDS SUMMARY | 2022-08-06 04:15 | XMS_ITS | Encounter Summary ---
:1985 Author Organization [facility] Address [address] [place] [address] Care Team Providers Name Role Phone LopezRoselyn Shane PERAZA Primary Care Provider Reason for Visit Reason Comments PAP,ABNORMAL ASC-H, HPV+ non 16-18 Encounter Details Date Type Department Care Team Description 12/19/2017 Telephone Cervical Cancer Christine Johnson MD PAP,ABNORMAL (ASC-H, Screening and [address] HPV+ non 16-18) Management [facility] [address]th [address] [place] [address] [address] [address] [place], [place] [address] [phone] Social History Tobacco Use Types Packs/Day Years [...] screening on 12/06/[address] Corona at [facility] Pap result(s): ASC-H, HPV+ (non 16/18), hx abnormal Colposcopy recommended per guidelines. Informed patient of results. Scheduled colposcopy. Patient given verbal preparation instructions forprocedure. Sent follow up [employer] message. Future Appointments Date Time Provider Department Center 12/25/2017 1:00 PM Igor Kaufman MD [facility] PN POE FR Routing to provider as an FYI. 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
--- OUTSIDE RECORDS SUMMARY | 2022-08-06 04:15 | XMS_ITS | Encounter Summary ---
:1985 Author Organization [facility] Address [address] [place] [address] Care Team Providers Name Role Phone Roselyn Marroquin PA-C Primary Care Provider Encounter Details Date Type Department Care Team Description 08/09/2016 Lab Visit [facility] Encounter for screening for lipoid disorders; [address] Screening for diabetes donato keller; [place] [address] Dysmenorrhea; [phone] Metrorrhagia Social History Tobacco Use Types Packs/Day [...] - 08/09/2016 11:28 PM CDT Performed at [facility], [address] [place] [address] CLIA number [id number] Roselyn Marroquin PA-C LAB_1 Performing Organization Address [facility] Phon e Number PN SOFT [address] [place] [address] (ABNORMAL) CBC - Complete Blood Count-No Diff (08/09/2016 2:27 PM CDT) [facility] Method Time Signature White Blood Cell [...] - 08/09/2016 2:34 PM CDT Performed at [facility], [address] [place] [address] CLIA number [id number] Roselyn Marroquin PA-C LAB_1 Performing Organization Address City/[facility]/ZIP Code Phon e Number PN SOFT [address] [place] [address] Glucose (08/09/2016 2:27 PM CDT) P athologist Signature Lab Glucose 91 60 - 100 PN SOFT mg/dL Specimen Anatomical Collection Method Collection Time Receive d Time (Source) Location / / Volume Laterality 08/09/2016 2:27 PM 6 5:08 CDT PM CDT Narrative PN SOFT - 08/09/2016 5:27 PM CDT Performed at [facility], [facility] [address] [place] [address] CLIA number [id number] Roselyn Marroquin PA-C LAB_1 Performing Organization Address City/[facility] Phon e Number PN SOFT [address] [place] [address] Lipid Panel - LDLD If Trig High [...] - 08/09/2016 5:27 PM CDT Performed at [facility], [address] [id number] CLIA number [id number] Roselyn Marroquin PA-C LAB_1 Performing Organization Address City/[facility] Phon e Number PN SOFT [address] [place] [address] documented in this encounter Visit Diagnoses Diagnosis Encounter for screening for lipoid disor ders Screening for lipoid disorders Screening for diabetes mellitus Dysmenorrhea Metrorrhagia documented in this encounter Care Teams Wire Chief Relationship Specialty Start Date End Date Roselyn Marroquin PA-C PCP - General Physician Auto Clutch Rebuilder 08/09/16 [address] [place] [address] documented as of this encounter
--- OUTSIDE RECORDS SUMMARY | 2022-08-06 04:15 | XMS_ITS | Encounter Summary ---
:1985 Author Organization [facility] Address [address] [place] [address] Care Team Providers Name Role Phone Unassigned, Provider Primary Care Provider Unavailable Encounter Details Date Type Department Care Team Description 05/04/2009 Office Visit Katty Odom, RN Obstetrics/Gynecolog y [address] [place] [address] Social History Tobacco Use Types Packs/Day Years [...] in this encounter Progress Notes Katty Armstrong, GO CART MECHANIC, VEST FINISHER - 05/04/2009 12:01 AM CDT Progress Notes signed by BALAJI Kwan at 05/04/09 1254 Author: BALAJI Kwan Service: (none) Author Type: Nurse Practitioner Filed: 02/11/11 1441 Note Time: 05/04/09 0001 Status: Signed C Web Developer: BALAJI Kwan (Nurse Practitioner) Post- Visit SUBJECTIVE: [...] [facility] today [facility]. Medications: Reviewed and updated today on [facility]. Tobacco: None. OBJECTIVE: Blood Pressure: 110/70 Height: 65 inches Current Weight: 123 pounds General: Well-developed, well-nourished, and in no apparent distress. Abdomen: Soft, nontender without organomegaly, masses, hernias or inguinal adenopathy. Pelvic: External Genitalia: Normal without lesions. Perineum: Well healed without granulation tissue or tenderness. Bartholin's glands, urethra, [place]'s 9glands without lesions. Vagina: [place], moist and without lesions. Cervix: :Without lesions. [...] on filedocumented in this encounter Care Teams Teasel Setter Relationship Specialty Start Date End Date Unassigned, Provider PCP - General 12/01/00 02/17/[address] [place] [address] documented as of this encounter
--- OUTSIDE RECORDS SUMMARY | 2022-08-06 04:15 | XMS_ITS | Encounter Summary ---
:1985 Author Organization [facility] Address [address] [address] Care Team Providers Name Role Phone Unassigned, Provider Primary Care Provider Unavailable Reason for Visit Reason Comments LAB RESULTS Encounter Details Date Type Department Care Team Description 07/03/2012 Telephone [facility] Arielle Spence LAB RESULTS [address] [place] [address] Social History Tobacco Use Types Packs/Day [...] on filedocumented in this encounter Care Teams Valving Machine Operator Relationship Specialty Start Date End Date Unassigned, Provider PCP - General 12/01/00 02/17/16 [address] [place] [address] documented as of this encounter
--- OUTSIDE RECORDS SUMMARY | 2022-08-06 04:15 | XMS_ITS | Encounter Summary ---
:1985 Author Organization [facility] Address [address] [place] [address] Care Team Providers Name Role Phone Unassigned, Provider Primary Care Provider Unavailable Encounter Details Date Type Department Care Team Description 07/02/2012 Lab Visit [facility] Dysuria [address] [place] [address] Social History Tobacco Use Types Packs/Day [...] on 07/03/2012 at 4:47 PMChanged to Nitrofurantoin ING MACHINE OPERATOR ROAD FORMS Miscellaneous - 12/01/2016 2:49 PM CSTNotes Recorded by Arielle Blevins PA-C on 07/03/2012 at 4:47 PMChanged to Nitrofurantoin ING MACHINE OPERATOR ROAD FORMS documented in this encounter Plan of Treatment [...] Component Value Ref Test Analysis Performed At [facility] Range Method Time Signature Urine Culture [...] (ABNORMAL) URINE MICROSCOPIC (07/02/2012 12:08 PM CDT) [facility] Method Time Signature Urine WBC 0-2 [...] - 07/02/2012 12:22 PM CDT Performed at [facility], [address] [place] [address] Transcriptions 12/01/2016 2:49 PM CSTNotes Recorded by Arielle Blevins PA-C on 07/03/2012 at 4:47 PMChanged to Nitrofurantoin Arielle Blevins LAB_1 Performing Organization Address City/[facility] Code Phon e Number HP CONVERSION (ABNORMAL) URINALYSIS ROUTINE, MICRO/CULTURE IF POS (07/02/2012 12:08 PM CDT) [facility] Method Time Signature Urine Type Urine:clean [...] U Specific 1.020 1.005 - HP CONVERSION [place] 1.030 Urobilinogen Negative Negative HP CONVERSION Urine Eu/dL Specimen Anatomical Collection Method Collection Time Receive d Time (Source) Location / / Volume Laterality Urine: 07/02/2012 12:08 07/02/2012 PM CDT 12:08 PM CDT Narrative HP CONVERSION - 07/02/2012 12:22 PM CDT Performed at [facility], [address] [place] [address] Transcriptions 12/01/2016 2:49 PM CSTNotes Recorded by Arielle Blevins PA-C on 07/03/2012 at 4:47 PMChanged to Nitrofurantoin Arielle Blevins LAB_1 Performing Organization Address [facility] Phon e Number HP CONVERSION documented in this encounter Visit Diagnoses Diagnosis Dysuria documented in this encounter Care Teams Manager Women Relationship Specialty Start Date End Date Unassigned, Provider PCP - General 12/01/00 02/17/[address] [place] [address] documented as of this encounter
--- OUTSIDE RECORDS SUMMARY | 2022-08-06 04:15 | XMS_ITS | Encounter Summary ---
:1985 Author Organization [facility] Address [address], [place] [address] Care Team Providers Name Role Phone Unassigned, Provider Primary Care Provider Unavailable Reason for Visit Reason Comments DANNY CHAMPAGNE Encounter Details Date Type Department Care Team Description [facility]/11/2012 [facility]al (Primary Medicine Dx) [address] [place] [phone] Social History Tobacco Use Types Packs/Day Years [...] Primary documented in this encounter Care Teams Microstrategy Architect Relationship Specialty Start Date End Date Unassigned, Provider PCP - General 12/01/00 02/17/[address] [place] [address] documented as of this encounter
--- OUTSIDE RECORDS SUMMARY | 2022-08-06 04:15 | XMS_ITS | Encounter Summary ---
:1985 Author Organization [facility] Address [address], [place] [address] Care Team Providers Name Role Phone Unassigned, Provider Primary Care Provider Unavailable Reason for Visit Reason Comments DANNY MUÑOZ Encounter Details Date Type Department Care Team Description 11/08/2011 Office Visit [facility] Arielle Carvajal (Primary Dx); Medicine Plantar oscart [address] [place] [address] Social History Tobacco Use Types Packs/Day Years Used Date Smoking Tobacco: Never Assessed Sex Assigned at Date Recorded Not on file documented as of this encounter Last Filed Vital Signs Vital Sign Reading Time Taken Comments Blood Pressure 121/72 11/08/2011 1:33 PM WEDDING PLANNER Pulse 94 11/08/2011 1:33 PM WEDDING PLANNER Temperature 36.4 ??C (97.5 ??F) 11/08/2011 1:33 PM WEDDING PLANNER Respiratory Rate 16 11/08/2011 1:33 PM WEDDING PLANNER Oxygen Saturation 96% 11/08/2011 1:33 PM WEDDING PLANNER Inhaled Oxygen Concentration - - Weight - [...] does not exercise but 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
--- OUTSIDE RECORDS SUMMARY | 2022-08-06 04:15 | XMS_ITS | Encounter Summary ---
:1985 Author Organization [facility] Address [address] [place] [address] Care Team Providers Name Role Phone Unassigned, Provider Primary Care Provider Unavailable Reason for Visit Reason Comments Back Pain Encounter Details Date Type Department Care Team Description 09/07/2015 Office Visit [facility] Juaquin Corona Bilater al low back Medicine MD pain, with sciatica [address] presence unspecified [place], [place] (Primary Dx) [address] [phone] Social History Tobacco Use Types Packs/Day Years Used Date Smoking Tobacco: Never Assessed Sex Assigned at Date Recorded Not on file documented as of this encounter Last Filed Vital Signs Vital Sign Reading Time Taken Comments Blood Pressure 108/68 09/07/2015 10:23 AM PEANUT BLANCHER Pulse 80 09/07/2015 10:23 AM PEANUT BLANCHER Temperature - - Respiratory Rate - - Oxygen Saturation - - Inhaled Oxygen Concentration - - Weight 52.4 kg (115 lb 8 oz) 09/07/2015 10:23 AM PEANUT BLANCHER Height 167.6 cm (5' 6) 09/07/2015 10:23 AM PEANUT BLANCHER Body Mass Index 18.64 09/07/2015 10:23 AM PEANUT BLANCHER documented in this encounter Progress Notes Juaquin [...] Past Surgical History Procedure Laterality Date ??? [place] tooth extraction ??? Pleural scarification chest tube [...] pap. Juaquin Corona MD 10:48 AM 09/07/2015 [place] BL[facility] documented in this encounter Plan of Treatment Not on filedocumented as of this encounter Visit Diagnoses Diagnosis Bilateral low back pain, with sciatica p resence unspecified ([facility]) - Primary documented in this encounter Care Teams Email Campaign Manager Relationship Specialty Start Date End Date Unassigned, Provider PCP - General 12/01/00 02/17/[address] [place] [address] documented as of this encounter
--- OUTSIDE RECORDS SUMMARY | 2022-08-06 04:16 | XMS_ITS | Encounter Summary ---
:1985 Author Organization [email or web address] Address [address] [address] Care Team Providers Name Role Phone Unassigned, Provider Primary Care Provider Unavailable Encounter Details Date Type Department Care Team Description 11/05/2008 Initial Igor Burroughs Obstetrics/[place] [address] [place] [address] [place] [address] [phone] (Wo rk) Social History Tobacco Use Types Packs/Day Years Used Date Smoking Tobacco: Never Assessed Sex Assigned at Date Recorded Not on file documented as of this encounter Last Filed Vital Signs Vital Sign Reading Time Taken Comments Blood Pressure 108/60 11/05/2008 1:16 PM LPN RN HOSPICE Pulse - - Temperature - - Respiratory Rate - - Oxygen Saturation - - Inhaled Oxygen Concentration - - Weight 58 kg (127 lb 15.6 oz) 11/05/2008 1:16 PM LPN RN HOSPICE C: 58.1kg Height 165.1 cm (5' 5) 11/05/2008 1:16 PM LPN RN HOSPICE C: 165.1 cm Body Mass Index 21.3 11/05/2008 1:16 PM LPN RN HOSPICE documented in this encounter Plan of Treatment Not on filedocumented as of this encounter Visit Diagnoses Not on filedocumented in this encounter Care Teams Wad Impregnator Relationship Specialty Start Date End Date Unassigned, Provider PCP - General 12/01/00 02/17/[address] [place] [address] documented as of this encounter
--- OUTSIDE RECORDS SUMMARY | 2022-08-06 04:16 | XMS_ITS | Encounter Summary ---
:1985 Author Organization [facility] Address [address] [place] [address] Care Team Providers Name Role Phone Unassigned, Provider Primary Care Provider Unavailable Encounter Details Date Type Department Care Team Description 10/06/2008 PN Conversion Only CHEONDOISM CONVERSION Katty Armstrong , RN Social History Tobacco Use Types Packs/Day Years Used Date Smoking Tobacco: Never Assessed Sex Assigned at Date Recorded Not on file documented as of this encounter Plan of Treatment Not on filedocumented as of this encounter Procedures Procedure Name Priority Date/Time Associated Comments Diagnosis SEXUALLY TRANSMITTED Routine 10/06/2008 4:34 PM R esults for this DISEASE PROBE CIGAR PACKING EXAMINER procedure are in the results section. BLOOD GROUP & RH Routine 10/06/2008 3:22 PM Resul ts for this (BLOOD TYPE) CIGAR PACKING EXAMINER procedure are i n the results section. ANTIBODY SCREEN Routine 10/06/2008 3:22 PM Result s for this CIGAR PACKING EXAMINER procedure are i n the results section. RUBELLA IGG Routine 10/06/2008 3:22 PM Results f or this CIGAR PACKING EXAMINER procedure are i n the results section. HIV ANTIBODY Routine 10/06/2008 3:22 PM Results f or this CIGAR PACKING EXAMINER procedure are i n the results section. RPR BLOOD Routine 10/06/2008 3:22 PM Results f or this CIGAR PACKING EXAMINER procedure are i n the results section. HEP B SURFACE Routine 10/06/2008 3:22 PM Results for this ANTIGEN, NO REFLEX CIGAR PACKING EXAMINER procedure are in the results section. COMPLETE BLOOD Routine 10/06/2008 3:22 PM Results for this COUNT-NO DIFF CIGAR PACKING EXAMINER procedure are in the results section. URINALYSIS Routine 10/06/2008 2:43 PM Results f or this ROUTINE(MICRO IF POS) CIGAR PACKING EXAMINER proced ure are in the results section. URINALYSIS Routine 10/06/2008 2:43 PM Results f or this MICROSCOPIC CIGAR PACKING EXAMINER procedure are i n the results section. URINE CULTURE Routine 10/06/2008 2:43 PM Results for this CIGAR PACKING EXAMINER procedure are i n the results section. ANATOMICAL PATH Routine 10/06/2008 10:46 Results for this LIQUID BASED AM CIGAR PACKING EXAMINER procedure are i n the results section. documented in this encounter Results Sexually Transmitted Disease Probe (10/06/2008 4:34 PM CIGAR PACKING EXAMINER) Patholo gist Method Time Signature Sexually SEE TEXT HP CONVERSION Transmitted Disease Probe Comment: Patient: TELLO TERRELL Sexually Trans Disease Probe ?Collected: ??[id number] ??[id number] Source: ENDOCERV ?Processed: ??[id number] ??[id number] ? V Final Report ------ ?[id number] ??[id number] No Chlamydia trachomatis detected by amp lified DNA assay No Neisseria gonorrhoeae detected by amp lified DNA assay [facility] Amplified DNA assay is royce red by the FDA for non-medicolegal diagnostic testing in the adult population. Specimen (Source) Anatomical Collection Method Collection Time Re ceived Time Location / / Volume Laterality 10/06/2008 4:34 PM CIGAR PACKING EXAMINER Katty Armstrong RN LAB_1 Performing Organization Address City/State/ZIP Code Phon e Number HP CONVERSION Antibody Screen (10/06/2008 3:22 PM CIGAR PACKING EXAMINER) athologist Signature N/O BB NEG No normal HP CONVERSION ANTIBODY range SCREEN Specimen (Source) Anatomical Collection Method Collection Time Re ceived Time Location / / Volume Laterality 10/06/2008 3:22 PM CIGAR PACKING EXAMINER Katty Armstrong RN PN BLOOD BANK ORDERS Performing Organization Address City/State/ZIP Code Phon e Number HP CONVERSION (ABNORMAL) Complete Blood Count-No Diff (10/06/2008 3:22 PM CIGAR PACKING EXAMINER) [facility] gist Method Time Signature White Blood [...] 32.0 - HP CONVERSION Hemoglobin Conc 36.5 [place] gm/dL RDW 10.9 (L) 11.0 - HP CONVERSION 15.0 % Platelet Count 179 140 - 450 HP CONVERSION k/cmm Specimen (Source) Anatomical Collection Method Collection Time Re ceived Time Location / / Volume Laterality 10/06/2008 3:22 PM CIGAR PACKING EXAMINER Katty Armstrong RN LAB_1 Performing Organization Address [facility]/ZIP Code Phon e Number HP CONVERSION Blood Group & Rh (Blood Type) (10/06/2008 3:22 PM CIGAR PACKING EXAMINER) athologist Signature BB BLOOD TYPE O POS No normal HP CONVERSION (BLOOD GROUP & range RH) Specimen (Source) Anatomical Collection Method Collection Time Re ceived Time Location / / Volume Laterality 10/06/2008 3:22 PM CIGAR PACKING EXAMINER Katty Armstrong RN PN BLOOD BANK ORDERS Performing Organization Address [facility] Code Phon e Number HP CONVERSION Rubella Igg (10/06/2008 3:22 PM CIGAR PACKING EXAMINER) athologist Signature Rubella IgG Immune Immune HP CONVERSION Specimen (Source) Anatomical Collection Method Collection Time Re ceived Time Location / / Volume Laterality 10/06/2008 3:22 PM CIGAR PACKING EXAMINER Katty Armstrong RN LAB_1 Performing Organization Address [facility]/ZIP Code Phon e Number HP CONVERSION RPR Blood (10/06/2008 3:22 PM CIGAR PACKING EXAMINER) P athologist Signature RPR Non Reac Non Reac HP CONVERSION Specimen (Source) Anatomical Collection Method Collection Time Re ceived Time Location / / Volume Laterality 10/06/2008 3:22 PM CIGAR PACKING EXAMINER Katty Armstrong RN LAB_1 Performing Organization Address [facility] Code Phon e Number HP CONVERSION HIV Antibody (10/06/2008 3:22 PM CIGAR PACKING EXAMINER) P athologist Signature HIV 1/HIV 2 Non Reac Non Reac HP CONVERSION Specimen (Source) Anatomical Collection Method Collection Time Re ceived Time Location / / Volume Laterality 10/06/2008 3:22 PM CIGAR PACKING EXAMINER Katty Armstrong RN LAB_1 Performing Organization Address [facility] Code Phon e Number HP CONVERSION Hep B Surface Antigen, No Reflex (10/06/2008 3:22 PM CIGAR PACKING EXAMINER) Analysis Performed At Patho logist Time Signature Hep B Surf Ag Negative Negative HP CONVERSION Specimen (Source) Anatomical Collection Method Collection Time Re ceived Time Location / / Volume Laterality 10/06/2008 3:22 PM CIGAR PACKING EXAMINER Katty Armstrong RN LAB_1 Performing Organization Address [facility] Code Phon e Number HP CONVERSION (ABNORMAL) Urine Culture (10/06/2008 2:43 PM CIGAR PACKING EXAMINER) Patholo gist Method Time Signature Urine Culture SEE TEXT HP CONVERSION (A) Comment: Patient: TELLO TERRELL Culture, Urine ?Collected: ??[id number] ??[id number] Source: Clean Ca ?Processed: ??[id number] ??1443 ? 1V Final Report ------ ?[id number] ??1508 50-100,000 CFU/mL Escherichia coli Susceptibility Testing E COL ??GIANLUCA INTERP: ?S ??AMPICILLIN , AMOX/CLAV ACID, CEFAZOLIN, LEVOFLOXACIN, ?CIPR OFLOXACIN, CEFTRIAXONE, CEFTAZIDIME, GENTAMICIN, ?CEFE PIME, NITROFURANTOIN, TRIMETH-SULFA Specimen (Source) Anatomical Collection Method Collection Time Re ceived Time Location / / Volume Laterality 10/06/2008 2:43 PM CIGAR PACKING EXAMINER Katty Armstrong RN LAB_1 Performing Organization Address City/State/ZIP Code Phon e Number HP CONVERSION (ABNORMAL) Urinalysis Routine(Micro If Pos) (10/06/2008 2:43 PM CIGAR PACKING EXAMINER) [facility] gist Method Time Signature Turbidity Hazy [...] Specific 1.015 1.005 - 25 HP CONVERSION [place] Specimen (Source) Anatomical Collection Method Collection Time Re ceived Time Location / / Volume Laterality 10/06/2008 2:43 PM CIGAR PACKING EXAMINER Katty Armstrong RN LAB_1 Performing Organization Address City/[facility] Code Phon e Number HP CONVERSION (ABNORMAL) Urinalysis Microscopic (10/06/2008 2:43 PM CIGAR PACKING EXAMINER) [facility] Method Time Signature White Blood 0-2/HPF 0 - 3 HP CONVERSION Cells Urine Bacteria Urine Moderate (A) None HP CONVERSIO N Epithelial Few Few /HPF HP CONVERSION Cells Crystals Amorph None HP CONVERSION Specimen (Source) Anatomical Collection Method Collection Time Re ceived Time Location / / Volume Laterality 10/06/2008 2:43 PM CIGAR PACKING EXAMINER Katty Armstrong RN LAB_1 Performing Organization Address [facility] Code Phon e Number HP CONVERSION Pap Smear (10/06/2008 10:46 AM CIGAR PACKING EXAMINER) [facility] gist Method Time Signature PAP Smear SEE TEXT No normal HP CONVERSION Liquid Based range Comment: Patient: TELLO TERRELL ? CERVICAL CYTOLOGY REPORT Pathology # ??[id number] ?Date Obtained: [id number] ? Date Received: [id number] CYTOLOGIC IMPRESSION: Negative for intraepithelial lesion or m alignancy. Verified 10/09/08 by: ??KGM ?(electronic signature) ? LEANN TIONAL DATA LMP: CLINICAL HIST LIQUID BASED PAP CERVICAL SPECIMEN ADEQUACY: ?? Satisfactory. ENDOCERVICAL CELLS: ??Present. Specimen (Source) Anatomical Collection Method Collection Time Re ceived Time Location / / Volume Laterality 10/06/2008 10:46 AM CIGAR PACKING EXAMINER Katty Armstrong RN LAB_1 Performing Organization Address City/State/ZIP Code Phon e Number HP CONVERSION documented in this encounter Visit Diagnoses Not on filedocumented in this encounter Care Teams Hat Renovator Relationship Specialty Start Date End Date Unassigned, Provider PCP - General 12/01/00 02/17/[address] [place] [address] documented as of this encounter
--- OUTSIDE RECORDS SUMMARY | 2022-08-06 04:16 | XMS_ITS | Encounter Summary ---
:1985 Author Organization [facility] Address [address] [place] [address] Care Team Providers Name Role Phone Unassigned, Provider Primary Care Provider Unavailable Encounter Details Date Type Department Care Team Description 09/30/2008 PN Conversion Only STRIPPING SHOVEL OILER [address] [place] [address] Social History Tobacco Use Types Packs/Day Years Used Date Smoking Tobacco: Never Assessed Sex Assigned at Date Recorded Not on file documented as of this encounter Plan of Treatment Not on filedocumented as of this encounter Visit Diagnoses Not on filedocumented in this encounter Care Teams Machinist Linotype Relationship Specialty Start Date End Date Unassigned, Provider PCP - General 12/01/00 02/17/[address] [place] [phone] documented as of this encounter
--- OUTSIDE RECORDS SUMMARY | 2022-08-06 04:16 | XMS_ITS | Encounter Summary ---
:1985 Author Organization [facility] Address [address] [address] Care Team Providers Name Role Phone Unassigned, Provider Primary Care Provider Unavailable Encounter Details Date Type Department Care Team Description 03/11/2009 Routine [place] Katty Armstrong RN Obstetrics/Gynecolog y [address] [place], [place] [address] Social History Tobacco Use Types Packs/Day Years [...] on filedocumented in this encounter Care Teams Gas Appliance Servicer Relationship Specialty Start Date End Date Unassigned, Provider PCP - General 12/01/00 02/17/16 [address] [place] [address] documented as of this encounter
--- OUTSIDE RECORDS SUMMARY | 2022-08-06 04:16 | XMS_ITS | Encounter Summary ---
:1985 Author Organization [facility] Address [address] [place] [address] Care Team Providers Name Role Phone Unassigned, Provider Primary Care Provider Unavailable Encounter Details Date Type Department Care Team Description 10/22/1989 PN Conversion Only HVAC MECHANICAL ENGINEER [address] [place] [address] Social History Tobacco Use Types Packs/Day Years Used Date Smoking Tobacco: Never Assessed Sex Assigned at Date Recorded Not on file documented as of this encounter Plan of Treatment Not on filedocumented as of this encounter Procedures Procedure Name Priority Date/Time Associated Comments Diagnosis ANC RESULT Routine 10/20/1994 1:10 PM Results f or this CONVERSION DEFAULT CONDENSER OPERATOR procedure are in ORDER the results section. documented in this encounter Results Anc Result Conversion Default Order (10/20/1994 1:10 PM CONDENSER OPERATOR) Anatomical Region Laterality Modality Other Specimen (Source) Anatomical Location Collection Method / Collectio n Time Received Time / Laterality Volume Narrative 10/20/1994 1:10 PM CONDENSER OPERATOR CLINICAL DATA: ?COUGH ONE MONTH FINDINGS: ?LINEAR [...] on filedocumented in this encounter Care Teams Forest Botany Instructor Relationship Specialty Start Date End Date Unassigned, Provider PCP - General 12/01/00 02/17/[address] [place] [address] documented as of this encounter
--- OUTSIDE RECORDS SUMMARY | 2022-08-06 04:16 | XMS_ITS | Encounter Summary ---
:1985 Author Organization Counts include 234 beds at the [facility] Address [address], [place] [address] Care Team Providers Name Role Phone Unassigned, Provider Primary Care Provider Unavailable Encounter Details Date Type Department Care Team Description 02/04/2009 Routine [place] Katty Armstrong RN Obstetrics/Gynecolog y [address] [place], [place] [address] Social History Tobacco Use Types Packs/Day Years [...] on filedocumented in this encounter Care Teams Marketing Operations Coordinator Relationship Specialty Start Date End Date Unassigned, Provider PCP - General 12/01/00 02/17/16 [address] [place] [address] documented as of this encounter
--- OUTSIDE RECORDS SUMMARY | 2022-08-06 04:16 | XMS_ITS | Encounter Summary ---
:1985 Author Organization [facility] Address [address], [place] [address] Care Team Providers Name Role Phone Unassigned, Provider Primary Care Provider Unavailable Encounter Details Date Type Department Care Team Description 02/18/2009 Routine Igor Burroughs Obstetrics/[place] [address] [facility] [address] [place] [address] [place] [address] [phone] (Wo rk) Social History Tobacco Use Types [...] on filedocumented in this encounter Care Teams French Professor Relationship Specialty Start Date End Date Unassigned, Provider PCP - General 12/01/00 02/17/16 [address] [place] [address] documented as of this encounter
--- OUTSIDE RECORDS SUMMARY | 2022-08-06 04:16 | XMS_ITS | Encounter Summary ---
:1985 Author Organization [facility] Address [address], [place] [address] Care Team Providers Name Role Phone Unassigned, Provider Primary Care Provider Unavailable Encounter Details Date Type Department Care Team Description 10/06/2008 PN Conversion Only EPISCOPALIAN CONVERSION Katty Armstrong , RN Social History Tobacco Use Types Packs/Day Years Used Date Smoking Tobacco: Never Assessed Sex Assigned at Date Recorded Not on file documented as of this encounter Plan of Treatment Not on filedocumented as of this encounter Visit Diagnoses Not on filedocumented in this encounter Care Teams Chart Clerk Relationship Specialty Start Date End Date Unassigned, Provider PCP - General 12/01/00 02/17/[address] [place] [address] documented as of this encounter
--- OUTSIDE RECORDS SUMMARY | 2022-08-06 04:16 | XMS_ITS | Encounter Summary ---
:1985 Author Organization [facility] Address [address], [place] [address] Care Team Providers Name Role Phone Unassigned, Provider Primary Care Provider Unavailable Encounter Details Date Type Department Care Team Description 03/04/2009 Routine [place] Heri Nesbitt MD Obstetrics/Gynecolog y [address] [facility] [address] [place], [place] [id number] [phone] (Wo rk) Social History Tobacco Use Types [...] on filedocumented in this encounter Care Teams Sketch Maker Relationship Specialty Start Date End Date Unassigned, Provider PCP - General 12/01/00 02/17/16 [address] [place] [address] documented as of this encounter
--- OUTSIDE RECORDS SUMMARY | 2022-08-06 04:16 | XMS_ITS | Encounter Summary ---
:1985 [facility] Address [address] [address] Care Team Providers Name Role Phone Unassigned, Provider Primary Care Provider Unavailable Encounter Details Date Type Department Care Team Description 10/06/2008 Initial Katty Odom, RN Obstetrics/Gynecolog y [address] [place] [address] Social History Tobacco Use Types Packs/Day Years Used Date Smoking Tobacco: Never Assessed Sex Assigned at Date Recorded Not on file documented as of this encounter Last Filed Vital Signs Vital Sign Reading Time Taken Comments Blood Pressure 90/70 10/06/2008 2:29 PM APPRISE COUNSELOR Pulse - - Temperature - - Respiratory Rate - - Oxygen Saturation - - Inhaled Oxygen Concentration - - Weight 57.2 kg (125 lb 15.9 oz) 10/06/2008 2:29 PM C: 5 7.2kg APPRISE COUNSELOR Height 165.1 cm (5' 5) 10/06/2008 2:29 PM C: 165.1cm APPRISE COUNSELOR Body Mass Index 20.97 10/06/2008 2:29 PM APPRISE COUNSELOR documented in this encounter Progress Notes Katty Armstrong APRN, CNP - 10/06/2008 12:01 AM CST Progress Notes signed by Katty Armstrong APRN, CNP at 10/08/08 0821 Author: BALAJI Kwan Service: (none) Author Type: Nurse Practitioner Filed: 02/11/11 0917 Note Time: 10/06/08 0001 Status: Signed Boom Man: BALAJI Kwan (Nurse Practitioner) New OB visit Subjective: Betty is a 23 year old female who presents to clinic for new OB exam. LMP sometime in early 06/29. She also had one day of very light spotting in early July. Menstrual interval of 28 days. Positive testing the first week of August. She was seen [facility] and had an non-diagnostic [...] and pneumothorax. Had varicella as a child. shredded filler cigar maker machine history: Patient is a . Denies history of abnormal pap smears or STDs. 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 She is not , but the father [...] 45 minutes, total education time 30. *SH~DNS~newOB ISE COUNSELOR documented in this encounter Plan of Treatment Not on filedocumented as of this encounter Visit Diagnoses Not on filedocumented in this encounter Care Teams Service Station Console Operator Relationship Specialty Start Date End Date Unassigned, Provider PCP - General 12/01/00 02/17/[address] [place] [phone] documented as of this encounter
--- OUTSIDE RECORDS SUMMARY | 2022-08-06 04:16 | XMS_ITS | Encounter Summary ---
:1985 Author Organization [facility] Address [address], [place] [address] Care Team Providers Name Role Phone Unassigned, Provider Primary Care Provider Unavailable Encounter Details Date Type Department Care Team Description 12/10/2008 Routine [place] Katty Armstrong RN Obstetrics/Gynecolog y [address] [place], [place] [id number] Social History Tobacco Use Types Packs/Day Years Used Date Smoking Tobacco: Never Assessed Sex Assigned at Date Recorded Not on file documented as of this encounter Last Filed Vital Signs Vital Sign Reading Time Taken Comments Blood Pressure 108/48 12/10/2008 3:24 PM INSULATION WORKER FURNACE INSTALLER Pulse 72 12/10/2008 3:24 PM INSULATION WORKER FURNACE INSTALLER Temperature - - Respiratory Rate 18 12/10/2008 3:24 PM INSULATION WORKER FURNACE INSTALLER Oxygen Saturation - - Inhaled Oxygen Concentration - - Weight 61.5 kg (135 lb 9.3 oz) 12/10/2008 3:24 PM INSULATION WORKER FURNACE INSTALLER C : 61.5kg Height - - Body Mass Index 22.56 11/26/2008 2:28 PM INSULATION WORKER FURNACE INSTALLER documented in this encounter Plan of Treatment Not on filedocumented as of this encounter Visit Diagnoses Not on filedocumented in this encounter Care Teams First Aid Trainer Relationship Specialty Start Date End Date Unassigned, Provider PCP - General 12/01/00 02/17/16 [address] [place] [address] documented as of this encounter
--- OUTSIDE RECORDS SUMMARY | 2022-08-06 04:16 | XMS_ITS | Encounter Summary ---
:1985 Author Organization [facility] Address [address] [place] [address] Care Team Providers Name Role Phone Unassigned, Provider Primary Care Provider Unavailable Encounter Details Date Type Department Care Team Description 11/19/2008 PN Conversion Only [facility] [address] [place] [place] [address] Social History Tobacco Use Types Packs/Day Years Used Date Smoking Tobacco: Never Assessed Sex Assigned at Date Recorded Not on file documented as of this encounter Plan of Treatment Not on filedocumented as of this encounter Procedures Procedure Name Priority Date/Time Associated Diagnosis Comme nts US OB >/= 14 WEEKS Routine 11/19/2008 2:08 PM Res ults for this 0 DAYS, SINGLE DRAFTER GEOLOGICAL procedure are in FETUS the results section. documented in this encounter Results US OB >/= 14 Weeks 0 Days, Single Fetus (11/19/2008 2:08 PM DRAFTER GEOLOGICAL) Anatomical Region Laterality Modality Pelvis Other Specimen (Source) Anatomical Location Collection Method / Collectio n Time Received Time / Laterality Volume Impressions 11/19/2008 2:08 PM DRAFTER GEOLOGICAL : ? 1. ?? Single ?live intraut erine measuring 20 weeks 3 days by this ultrasound. ? 2. ?survey is unr emarkable. ??Small nonspecific echogenic intracardiac focus. [id number] Dictating MD BOWERS, AVERY Ley MD Narrative 11/19/2008 2:08 PM DRAFTER GEOLOGICAL COMPARISON: ??None. INDICATION: ??Check size and dates. [...] is unremarkable. Small nonspecific echogenic intracardiac focus. [id number] Dictating AVERY CLARK MD Igor Kaufman MD [facility] documented in this encounter Visit Diagnoses Not on filedocumented in this encounter Care Teams Real Estate Recruiter Relationship Specialty Start Date End Date Unassigned, Provider PCP - General 12/01/00 02/17/[address] [place] [address] documented as of this encounter
--- OUTSIDE RECORDS SUMMARY | 2022-08-06 04:16 | XMS_ITS | Encounter Summary ---
:1985 Author [facility] Address [address] [place] [address] Care Team Providers Name Role Phone Unassigned, Provider Primary Care Provider Unavailable Reason for Visit Reason Comments Other Encounter Details Date Type Department Care Team Description 10/09/2008 Telephone [place] [facility], Message Other [address] [place] [address] Social History Tobacco Use Types Packs/Day Years Used Date Smoking Tobacco: Never Assessed Sex Assigned at Date Recorded Not on file documented as of this encounter Progress Notes [place], Message - 10/09/2008 5:01 PM CST Phone Note filed by [employer] at 02/09/11 8782 Author: [place] Service: (none) Author Type: (none) Filed: 02/09/11 1242 Note Time: 10/09/08 1701 Status: Signed Juvenile Officer: [facility] Pt notified U/C results 50,000-100,000 e.coli. Pt given rx for Macrobid 100mg 1 po BID x 7 days per Lo Puckett MARINE PLUMBER. Pt informed abx faxed to pharmacy. Pt verified allergies NKDA Created on 09Oct2008 5:01pm by KIRILL TERRELL LY REUNIFICATION SPECIALIST documented in this encounter Plan of Treatment Not on filedocumented as of this encounter Visit Diagnoses Not on filedocumented in this encounter Care Teams Glue Bone Drier Relationship Specialty Start Date End Date Unassigned, Provider PCP - General 12/01/00 02/17/[address] [place] [phone] documented as of this encounter
--- OUTSIDE RECORDS SUMMARY | 2022-08-06 04:16 | XMS_ITS | Encounter Summary ---
:1985 Author Organization [facility] Address [address], [place] [address] Care Team Providers Name Role Phone Unassigned, Provider Primary Care Provider Unavailable Encounter Details Date Type Department Care Team Description 11/26/2008 Routine Igor Burroughs Obstetrics/[place] [address] [facility] [address] [place] [address] [place] [address] [phone] (Wo rk) Social History Tobacco Use Types Packs/Day Years Used Date Smoking Tobacco: Never Assessed Sex Assigned at Date Recorded Not on file documented as of this encounter Last Filed Vital Signs Vital Sign Reading Time Taken Comments Blood Pressure 102/60 11/26/2008 2:28 PM PLATFORM ARCHITECT Pulse - - Temperature - - Respiratory Rate - - Oxygen Saturation - - Inhaled Oxygen Concentration - - Weight 60.1 kg (132 lb 7.9 oz) 11/26/2008 2:28 PM C: 60 .1kg PLATFORM ARCHITECT Height 165.1 cm (5' 5) 11/26/2008 2:28 PM C: 165.1cm PLATFORM ARCHITECT Body Mass Index 22.05 11/26/2008 2:28 PM PLATFORM ARCHITECT documented in this encounter Plan of Treatment Not on filedocumented as of this encounter Visit Diagnoses Not on filedocumented in this encounter Care Teams Waterproof Coating Machine Tender Relationship Specialty Start Date End Date Unassigned, Provider PCP - General 12/01/00 02/17/[address] [place] [address] documented as of this encounter
--- OUTSIDE RECORDS SUMMARY | 2022-08-06 04:16 | XMS_ITS | Encounter Summary ---
:1985 Author Organization [facility] Address [address] [place] [address] Care Team Providers Name Role Phone Unassigned, Provider Primary Care Provider Unavailable Encounter Details Date Type Department Care Team Description 01/07/2009 PN Conversion Only [place] [address] [place] [address] Social History Tobacco Use Types Packs/Day Years [...] on filedocumented in this encounter Care Teams Corporate Auditor Relationship Specialty Start Date End Date Unassigned, Provider PCP - General 12/01/00 02/17/[address] [place] [address] documented as of this encounter
--- OUTSIDE RECORDS SUMMARY | 2022-08-06 04:16 | XMS_ITS | Encounter Summary ---
:1985 Author Organization [facility] Address [address] [place] [address] Care Team Providers Name Role Phone Unassigned, Provider Primary Care Provider Unavailable Encounter Details Date Type Department Care Team Description 03/04/2009 [place] [address] [address] [place] [address] [place] [phone] (Wo rk) Social History Tobacco Use Types [...] PM CDT) Analysis [facility] Time Signature Culture Strep SEE TEXT HP CONVERSION Screen Other Source Comment: Patient: TELLO TERRELL Culture Strep Scr Other Source ?Collected: ??[id number] ??[id number] Source: Vag/Rect ?Processed: ??[id number] ??[id number] ? V Final Report ------ ?[id number] ??[id number] No group A or B Streptococcus isolated Specimen (Source) Anatomical Collection Method Collection Time Re ceived Time Location / / Volume Laterality 03/04/2009 2:22 PM CDT Heri Nesbitt MD LAB_1 Performing Organization Address City/State/ZIP Code Phon e Number HP CONVERSION documented in this encounter Visit Diagnoses Not on filedocumented in this encounter Care Teams System Designer Relationship Specialty Start Date End Date Unassigned, Provider PCP - General 12/01/00 02/17/16 [address] [place] [address] documented as of this encounter
--- OUTSIDE RECORDS SUMMARY | 2022-08-06 04:16 | XMS_ITS | Encounter Summary ---
:1985 Author Organization [facility] Address [address] [address] Care Team Providers Name Role Phone Unassigned, Provider Primary Care Provider Unavailable Encounter Details Date Type Department Care Team Description 01/07/2009 Routine Igor Burroughs Obstetrics/[place] [address] [facility] [address] [place] [address] [place] [address] [phone] (Wo rk) Social History Tobacco Use Types [...] on filedocumented in this encounter Care Teams Chief Pilot Relationship Specialty Start Date End Date Unassigned, Provider PCP - General 12/01/00 02/17/16 [address] [place] [address] documented as of this encounter
--- OUTSIDE RECORDS SUMMARY | 2022-08-06 04:16 | XMS_ITS | Encounter Summary ---
:1985 Author Organization [facility] Address [address] [place] [address] Care Team Providers Name Role Phone Unassigned, Provider Primary Care Provider Unavailable Encounter Details Date Type Department Care Team Description 01/06/2009 PN Conversion Only [place] [address] [address] [place] [address] Social History Tobacco Use Types Packs/Day Years Used Date Smoking Tobacco: Never Assessed Sex Assigned at Date Recorded Not on file documented as of this encounter Plan of Treatment Not on filedocumented as of this encounter Visit Diagnoses Not on filedocumented in this encounter Care Teams Payroll Clerk Relationship Specialty Start Date End Date Unassigned, Provider PCP - General 12/01/00 02/17/[address] [place] [address] documented as of this encounter
--- OUTSIDE RECORDS SUMMARY | 2022-08-06 04:16 | XMS_ITS | Encounter Summary ---
:1985 Author Organization [facility] Address [address] [place] [address] Care Team Providers Name Role Phone Unassigned, Provider Primary Care Provider Unavailable Encounter Details Date Type Department Care Team Description 02/04/2009 PN Conversion Only [place] Igor Montgomery [address] [facility] [place] [address] [address] [place], [place] [address] (Wo rk) Social History [...] TELLO TERRELL Culture Strep Screen, Throat ?Collected: ??[id number] ??[id number] Source: Throat ?Processed: ??[id number] ??[id number] Final Report ------ ?[id number] ??[id number] No beta hemolytic Strep group A isolated . Specimen (Source) Anatomical Collection Method Collection Time Re ceived Time Location / / Volume Laterality 02/04/2009 2:05 PM CDT Igor Kaufman MD LAB_1 Performing Organization Address City/State/ZIP Code Phon e Number HP CONVERSION documented in this encounter Visit Diagnoses Not on filedocumented in this encounter Care Teams Quality Review Trainer Relationship Specialty Start Date End Date Unassigned, Provider PCP - General 12/01/00 02/17/[address] [place] [address] documented as of this encounter
[2022-08-06 04:40] VITALS: BP 116/74; PULSE 87; PULSE 92; RESP 16; TEMP 36.8; O2SAT 97
[2022-08-06 05:19] LABS: Amnisure Rom* Negative
--- NOTE | 2022-08-06 05:55 | PC.OBNST ---
NST Note NST Note Start: 08/06/22 04:15 Freq: ONCE Status: Active Protocol: Document 08/06/22 05:53 EGLashonda (Rec: 08/06/22 05:55 EGM [id number]) NST Note 3 Para (# of births) 2 EDC 08/17/22 Gestational Age In Weeks & Days 38 Weeks & 3 Days Patient Presented with Complaint(s) of Leaking fluid Reactive Yes Appropriate for Gestational Age Yes BROOKLYN Baker, RN Date 08/06/22 Reactive Yes Appropriate for Gestational Age Yes BROOKLYN Aparicio RNC Date 08/06/22 OB NST charge Yes Complete NST Note via Write Note Yes The provider's electronic signature indicates the NST is reactive/appropriate for gestational age. *Note to provider: If an addendum is required, open the patient's chart and click on the note under the Nurse/Allied Health tab.
== END 2022-08-06 05:50 | disposition home or self-care (01) ==
LOC: OB OUT 04:11 → OB 04:13
PROVIDERS: PCP Obstetrics & Gynecology; Visit Provider Obstetrics & Gynecology
DX: O47.03 False labor before 37 completed weeks of gestation, third trimester (principal); Z3A.38 38 weeks gestation of pregnancy
CPT/HCPCS: 59025; 84112; 99213

== ENCOUNTER 2022-08-08 22:00 | Inpatient (IN) | payer BC, SELFPAY ==
[2022-08-08] VITALS (13 sets, daily range): BP systolic 120–141; BP diastolic 75–90; PULSE 76–91; TEMP 36.8–36.9; O2SAT 97–99; BMI 24.7
--- OUTSIDE RECORDS SUMMARY | 2022-08-08 19:08 | XMS_ITS | Clinical Summary ---
:1985 Author Organization [facility] Address [address] [facility] [place] [address] Care Team Providers Name Role Phone Roselyn [...] for each transition of care or referral. [facility] Allergies No known active allergies Medications Medication [...] Abnormal Pap smear of cervix 12/18/2017 Overview: [facility] Review: History: 2016: ASCUS HPV+ (non 16/18), [...] (ActHIB) 08/21/1986 Influenza IIV4 (Quadrivalent) 0.5mL 08/25/2020 (08517) MMR 03/02/1986 OPV, Trivalent (Orimune or tOPV) [...] Comments Blood Pressure 122/82 09/26/2019 3:41 PM CROWN BLOCKER Pulse 88 09/26/2019 3:41 PM CROWN BLOCKER Temperature 36.8 ??C (98.2 ??F) 09/26/2019 3:41 PM CROWN BLOCKER Respiratory Rate 16 09/26/2019 3:41 PM CROWN BLOCKER Oxygen Saturation 98% 08/28/2018 4:49 PM CROWN BLOCKER Inhaled Oxygen Concentration - - Weight 52.6 kg (116 lb) 09/26/2019 3:41 PM CROWN BLOCKER Height 170.2 cm (5' 7) 09/26/2019 3:41 PM CROWN BLOCKER Body Mass Index 18.17 09/26/2019 3:41 PM CROWN BLOCKER Plan of Treatment Health Maintenance Due Date [...] e / Group Dates BCBS BCBS PMAP [id number] 2020-Pres [address] Med icaid [place]UE [place] [id number] [place] [address] [facility] [id number] 2018-Pre Medicaid DENTAL PLAN ADULT DENTAL sent [phone] [id number] M y 6 (Home) [phone] [place] 6 (Work) [id number] [address] Personal/Famil Self 1985 [phone] [facility] M y 6 (Home) [place] [phone] 6 (Work) Betty Tai Personal/Famil Self 1985 [phone] 8 YARIEL BARILLAS M y 6 (Home) [place] [address] CHEYENNE MASSEY Personal/Famil Self 06/26/1956 [phone] (Home) [place] [address] Care Teams Site Acquisition Specialist Relationship Specialty Start Date End Date Roselyn Marroquin PA-C PCP - General Physician Patient Financial Services Manager 08/09/16 [address] [place], [place] [id number]
--- OUTSIDE RECORDS SUMMARY | 2022-08-08 19:08 | XMS_ITS | Encounter Summary ---
:1985 Author Organization [facility] Address [address] [address] Care Team Providers Name Role Phone Roselyn Marroquin PA-C Primary Care Provider Encounter Details Date Type Department Care Team Description 01/18/2019 Orders Only [facility] Mariam Herrera, [facility] [address] [facility] [address] [place] [address] [place], [place] [address] [phone] Social History Tobacco Use Types Packs/Day Years [...] on filedocumented in this encounter Care Teams Freight Clerk Relationship Specialty Start Date End Date Roselyn Marroquin PA-C PCP - General Physician Advanced Practice Nurse Psychotherapist 08/09/16 [address] [place] [address] documented as of this encounter
--- OUTSIDE RECORDS SUMMARY | 2022-08-08 19:08 | XMS_ITS | Encounter Summary ---
:1985 Author Organization [facility] Address [address] [address] Care Team Providers Name Role Phone Lopez Roselyn Lynn PA-C Primary Care Provider Reason for Visit Reason Comments Dysuria frequency fatigue hematuria [id number] Encounter Details Date Type Department Care Team Description 09/26/2019 Office Visit [facility] Percy Gutierrez, Dysuria (Primary Dx); Medicine PA-C Hematuria, microscopic [address] [address] [place] [address] [phone] Social History Tobacco Use Types Packs/Day Years [...] Comments Blood Pressure 122/82 09/26/2019 3:41 PM POLYTECHNIC TEACHER Pulse 88 09/26/2019 3:41 PM POLYTECHNIC TEACHER Temperature 36.8 ??C (98.2 ??F) 09/26/2019 3:41 PM POLYTECHNIC TEACHER Respiratory Rate 16 09/26/2019 3:41 PM POLYTECHNIC TEACHER Oxygen Saturation - - Inhaled Oxygen Concentration - - Weight 52.6 kg (116 lb) 09/26/2019 3:41 PM POLYTECHNIC TEACHER Height 170.2 cm (5' 7) 09/26/2019 3:41 PM POLYTECHNIC TEACHER Body Mass Index 18.17 09/26/2019 3:41 PM POLYTECHNIC TEACHER documented in this encounter Patient Instructions Patient [...] symptoms, feeling sicker, or any other concerns. TECHNIC TEACHER documented in this encounter Progress Notes Percy Gutierrez PA-C - 09/26/2019 3:20 PM CST Chief Complaint Patient presents with ??? Dysuria frequency fatigue hematuria [id number] History of present illness: Betty Tai is [...] Protein, Urine Qual (mg/dL) Trace 09/26/2019 Specific [place], Urine 1.015 09/26/2019 Urobilinogen, Urine (EU/dL) 0.2 [...] symptoms, feeling sicker, or any other concerns. TECHNIC TEACHER documented in this encounter Plan of Treatment Not on filedocumented as of this encounter Results (ABNORMAL) Urine Culture (09/26/2019 3:48 PM POLYTECHNIC TEACHER) Component Value Ref Test Method Analysis Performed Patholog ist Range Time At Signature Urine Growth (A) 09/28/2019 [facility] Culture 10:34 AM HOSPITAL POLYTECHNIC TEACHER Urine 10,000 - 50,000 GIANLUCA 09/28/2019 [facility] Culture CFU/mL SENSITIVITY 10:34 AM HOSPITAL Staphylococcus POLYTECHNIC TEACHER saprophyticus Specimen Anatomical Collection Method Collection Time Receive d Time (Source) Location / / Volume Laterality Urine URINE SPECIMEN Non-blood 09/26/2019 3:48 PM 019 3:48 COLLECTION, CLEAN Collection / POLYTECHNIC TEACHER PM POLYTECHNIC TEACHER CATCH / Unknown Unknown [facility] - 09/28/2019 10:[address] Routine testing of urine isolates of Sta phylococcus saprophyticus is not advised, because infections respond to concentrat ions achieved in urine of antimicrobial agents commonly used to treat acute, unc omplicated UTIs (eg, nitrofurantoin, trimethoprim ?? sulfamethoxazole, or a f luoroquinolone). Percy Gutierrez PA-C LAB_1 Performing Organization Address City/State/ZIP Code Phon e Number [address] [address] (ABNORMAL) Urine Dipstick NPT (09/26/2019 3:48 PM POLYTECHNIC TEACHER) Patholo gist Method Time Signature Glucose Urine Negative Negative 09/26/2019 [facility] Qual (mg/dL) 3:55 PM POLYTECHNIC TEACHER Bilirubin Negative Negative 09/26/2019 [facility] Urine 3:55 PM POLYTECHNIC TEACHER Ketones, Negative Negative 09/26/2019 [facility] Urine (mg/dL) 3:55 PM POLYTECHNIC TEACHER Specific 1.015 1.005 - 09/26/2019 [facility] [place], 1.030 3:55 PM POLYTECHNIC TEACHER Urine Blood, Urine Trace Neg/Trace 09/26/2019 [facility] 3:55 PM POLYTECHNIC TEACHER PH Urine 7.0 5.0 - 8.0 09/26/2019 [facility] 3:55 PM POLYTECHNIC TEACHER Protein, Trace Neg/Trace 09/26/2019 [facility] Urine Qual 3:55 PM POLYTECHNIC TEACHER (mg/dL) Urobilinogen, 0.2 <2.0 09/26/2019 [facility] Urine (EU/dL) 3:55 PM POLYTECHNIC TEACHER Nitrite Urine Negative Negative 09/26/2019 [facility] 3:55 PM POLYTECHNIC TEACHER Leukocyte Large (A) Negative 09/26/2019 [facility] Est. 3:55 PM POLYTECHNIC TEACHER Urine Color Yellow Straw-Yellow 09/26/2019 [facility] 3:55 PM POLYTECHNIC TEACHER Urine Clarity Hazy (A) Clear 09/26/2019 [facility] 3:55 PM POLYTECHNIC TEACHER Specimen Anatomical Collection Method Collection Time Receive d Time (Source) Location / / Volume Laterality Urine URINE SPECIMEN Non-blood 09/26/2019 3:48 PM 019 3:48 COLLECTION, CLEAN Collection / POLYTECHNIC TEACHER PM POLYTECHNIC TEACHER CATCH / Unknown Unknown Percy Gutierrez PA-C LAB_1 Performing Organization Address City/State/ZIP Code Phon e Number [facility] [address] [place] [address] [phone] [facility] [address] [place] [address], [facility] documented in this encounter Visit Diagnoses Diagnosis Dysuria - Primary Hematuria, microscopic Microscopic hematuria documented in this encounter Care Teams Trade Promotion Analyst Relationship Specialty Start Date End Date Roselyn Marorquin PA-C PCP - General Physician Director [facility] 08/09/16 [address] [place], [place] [phone] documented as of this encounter
--- OUTSIDE RECORDS SUMMARY | 2022-08-08 19:08 | XMS_ITS | Encounter Summary ---
:1985 Author Organization [facility] Address [address] [place] [address] Care Team Providers Name Role Phone Roselyn Marroquin PA-C Primary Care Provider Encounter Details Date Type Department Care Team Description 08/25/2020 Immunization [place] [address] Flu Need for prophylactic Clinic vaccination and [address] [place] [address] influenza [phone] Social History Tobacco Use Types Packs/Day Years [...] influenza documented in this encounter Care Teams Packaging Tech Relationship Specialty Start Date End Date Roselyn Marroquin PA-C PCP - General Physician Railroad Operator 08/09/[address] [place], [place] [address] documented as of this encounter
--- OUTSIDE RECORDS SUMMARY | 2022-08-08 19:08 | XMS_ITS | Encounter Summary ---
:1985 Author Organization [facility] Address [address] [place] [address] Care Team Providers Name Role Phone Roselyn Marroquin PA-C Primary Care Provider Encounter Details Date Type Department Care Team Description 09/26/2019 Lab Visit [facility] Dysuria; [address] Hematuria, [place] [address] Social History Tobacco Use [...] 09/26/2019 3:48 PM Dysuria Results for this MEDICAL STAFF SERVICES COORDINATOR Hematuria, procedure are i n microscopic the results section. AUTOMATED URINALYSIS Routine 09/26/2019 3:48 PM Dysuria R esults for this DIPSTICK POCT MEDICAL STAFF SERVICES COORDINATOR procedure are in the results section. documented in this encounter Results (ABNORMAL) Urine Culture (09/26/2019 3:48 PM MEDICAL STAFF SERVICES COORDINATOR) Component Value Ref Test Method Analysis Performed Patholog ist Range Time At Signature Urine Growth (A) 09/28/2019 [facility] Culture 10:34 AM HOSPITAL MEDICAL STAFF SERVICES COORDINATOR Urine 10,000 - 50,000 GIANLUCA 09/28/2019 [facility] Culture CFU/mL SENSITIVITY 10:34 AM HOSPITAL Staphylococcus MEDICAL STAFF SERVICES COORDINATOR saprophyticus Specimen Anatomical Collection Method Collection Time Receive d Time (Source) Location / / Volume Laterality Urine URINE SPECIMEN Non-blood 09/26/2019 3:48 PM 019 3:48 COLLECTION, CLEAN Collection / MEDICAL STAFF SERVICES COORDINATOR PM MEDICAL STAFF SERVICES COORDINATOR CATCH / Unknown Unknown [facility] - 09/28/2019 10:[address] Routine testing of urine isolates of Sta phylococcus saprophyticus is not advised, because infections respond to concentrat ions achieved in urine of antimicrobial agents commonly used to treat acute, unc omplicated UTIs (eg, nitrofurantoin, trimethoprim ?? sulfamethoxazole, or a f luoroquinolone). Percy Gutierrez PA-C LAB_1 Performing Organization Address City/State/ZIP Code Phon e Number [address] [address] (ABNORMAL) Urine Dipstick NPT (09/26/2019 3:48 PM MEDICAL STAFF SERVICES COORDINATOR) [employer] Method Time Signature Glucose Urine Negative Negative 09/26/2019 [facility] Qual (mg/dL) 3:55 PM MEDICAL STAFF SERVICES COORDINATOR Bilirubin Negative Negative 09/26/2019 [facility] Urine 3:55 PM MEDICAL STAFF SERVICES COORDINATOR Ketones, Negative Negative 09/26/2019 [facility] Urine (mg/dL) 3:55 PM MEDICAL STAFF SERVICES COORDINATOR Specific 1.015 1.005 - 09/26/2019 [facility] [place], 1.030 3:55 PM MEDICAL STAFF SERVICES COORDINATOR Urine Blood, Urine Trace Neg/Trace 09/26/2019 [facility] 3:55 PM MEDICAL STAFF SERVICES COORDINATOR PH Urine 7.0 5.0 - 8.0 09/26/2019 [facility] 3:55 PM MEDICAL STAFF SERVICES COORDINATOR Protein, Trace Neg/Trace 09/26/2019 [facility] Urine Qual 3:55 PM MEDICAL STAFF SERVICES COORDINATOR (mg/dL) Urobilinogen, 0.2 <2.0 09/26/2019 [facility] Urine (EU/dL) 3:55 PM MEDICAL STAFF SERVICES COORDINATOR Nitrite Urine Negative Negative 09/26/2019 [facility] 3:55 PM MEDICAL STAFF SERVICES COORDINATOR Leukocyte Large (A) Negative 09/26/2019 [facility] Est. 3:55 PM MEDICAL STAFF SERVICES COORDINATOR Urine Color Yellow Straw-Yellow 09/26/2019 [facility] 3:55 PM MEDICAL STAFF SERVICES COORDINATOR Urine Clarity Hazy (A) Clear 09/26/2019 [facility] 3:55 PM MEDICAL STAFF SERVICES COORDINATOR Specimen Anatomical Collection Method Collection Time Receive d Time (Source) Location / / Volume Laterality Urine URINE SPECIMEN Non-blood 09/26/2019 3:48 PM 019 3:48 COLLECTION, CLEAN Collection / MEDICAL STAFF SERVICES COORDINATOR PM MEDICAL STAFF SERVICES COORDINATOR CATCH / Unknown Unknown Percy J Matt PA-C LAB_1 Performing Organization Address City/State/ZIP Code Phon e Number [facility] [address] [place] [address] [facility] [address] [place] [address], [facility] [phone] documented in this encounter Visit Diagnoses Diagnosis Dysuria Hematuria, microscopic Microscopic hematuria documented in this encounter Care Teams Chief Recordist Relationship Specialty Start Date End Date Roselyn Marroquin PA-C PCP - General Physician Signal Person 08/09/16 [address] [place] [address] documented as of this encounter
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
--- OUTSIDE RECORDS SUMMARY | 2022-08-08 19:09 | XMS_ITS | Encounter Summary ---
:1985 Author Organization [facility] Address [address] [place] [address] Care Team Providers Name Role Phone Roselyn Marroquin PAEarnestine Primary Care Provider Reason for Visit Reason Comments Pharyngitis Encounter Details Date Type Department Care Team Description 11/15/2017 Hospital Encounter [facility] Brenda Mancia, Sore throat; [address] [place] [address] [address] [facility] [phone] [place], [place] [address] (Wo rk) Social History Tobacco Use Types [...] Comments Blood Pressure 109/74 11/15/2017 12:27 PM REPORTS DEVELOPER Pulse 86 11/15/2017 12:27 PM REPORTS DEVELOPER Temperature 36.7 ??C (98.1 ??F) 11/15/2017 12:27 PM REPORTS DEVELOPER Respiratory Rate 16 11/15/2017 12:27 PM REPORTS DEVELOPER Oxygen Saturation 97% 11/15/2017 12:27 PM REPORTS DEVELOPER Inhaled Oxygen Concentration - - Weight - [...] in 1999 ??? Metrorrhagia ??? Tobacco abuse ([facility]) 01/04/2015 OBJECTIVE: Vital Signs: BP 109/74 Pulse [...] STREP GROUP A WAIVED Narrative: Performed at [facility], [address] [place] [address] CLIA number [id number] BETA STREP RESP CULT Narrative: Performed at [facility], [address] [place] [address], CLIA Number [id number] Orders Placed This Encounter ??? Rapid Strep [...] recognition software and may contain typographic errors. RTS DEVELOPER documented in this encounter Plan of Treatment Not on filedocumented as of this encounter Procedures Procedure Name Priority Date/Time Associated Diagnosis Comme nts BETA STREP RESP STAT 11/15/2017 12:40 PM Sore throat Resul ts for this CULT REPORTS DEVELOPER procedure are i n the results section. GROUP A STREP STAT 11/15/2017 12:29 PM Sore throat Results for this ANTIGEN SCREEN REPORTS DEVELOPER procedure are in the results section. documented in this encounter Results Strep Screen Culture Throat (CSS) (11/15/2017 12:40 PM REPORTS DEVELOPER) [facility] gist Method Time Signature Source Throat PN SOFT Site PN SOFT Strep Screen No Group A 11/17/2017 PN SOFT Streptococcus 7:18 AM REPORTS DEVELOPER Isolated Specimen (Source) Anatomical Collection Method Collection Time Re ceived Time Location / / Volume Laterality Throat: 11/15/2017 12:40 PM REPORTS DEVELOPER Narrative PN SOFT - 11/17/2017 7:18 AM REPORTS DEVELOPER Performed at [facility], [address] [place] [address], CLIA Number [id number] Ace PATEL LAB_1 Performing Organization Address City/[facility]/ZIP Code Phon e Number PN SOFT [address] [place] [address] Rapid Strep Group A Waived (RSAW) (11/15/2017 12:29 PM REPORTS DEVELOPER) athologist Signature Strep A Negative Negative PN SOFT Antigen Strep A Source THROA: PN SOFT Specimen Anatomical Collection Method Collection Time Receive d Time (Source) Location / / Volume Laterality 11/15/2017 12:29 11/15/2017 1:33 PM REPORTS DEVELOPER PM REPORTS DEVELOPER Narrative PN SOFT - 11/15/2017 1:35 PM REPORTS DEVELOPER Performed at [facility], [address] [place] [address] CLIA number [id number] Ace PATEL LAB_1 Performing Organization Address City/[facility]/ZIP Code Phon e Number PN SOFT [address] [place] [address] [phone] documented in this encounter Visit Diagnoses Diagnosis Sore throat Acute pharyngitis Viral illness Unspecified viral infection, in conditio ns classified elsewhere and of unspecified site Triage Assessment Note - Alona Matos RN - 11/15/2017 12:25 PM REPORTS DEVELOPER Patient is an established patient according to [facility] policy and definition? Yes: SORE THROAT: [...] hasextended contact (i.e., day care worker or after school teacher) with a person who had strep within the last 10 days. OBJECTIVE Objective exam of patient indicates red throat. Phone number: Telephone Information: Work Phone Not on file. ASSESSMENT Sore throat. Alona Matos RN RTS DEVELOPER documented in this encounter Care Teams Legal Research Analyst Relationship Specialty Start Date End Date Roselyn Marroquin PA-C PCP - General Physician Java Websphere Developer 08/09/16 [address] [place] [address] documented as of this encounter
--- OUTSIDE RECORDS SUMMARY | 2022-08-08 19:09 | XMS_ITS | Encounter Summary ---
:1985 Author Organization [facility] Address [address] [place] [address] Care Team Providers Name Role Phone Roselyn Marroquin PA-C Primary Care Provider Reason for Visit Reason Onset Date Comments Medication Questions 08/09/2016 seeking clarity on medication's directions Encounter Details Date Type Department Care Team Description 08/09/2016 Telephone [facility] Roselyn Marroquin, Medicat ion Questions Medicine STU (seeking clarity on [address] [address] [facility] medication's directions [place], [place] [address] ) [address] [phone] Social History Tobacco Use Types Packs/Day Years [...] on filedocumented in this encounter Care Teams Procurement Analyst Relationship Specialty Start Date End Date Roselyn Marroquin PA-C PCP - General Physician Rouge Sifter 08/09/16 [address] [place] [address] documented as of this encounter
--- OUTSIDE RECORDS SUMMARY | 2022-08-08 19:09 | XMS_ITS | Encounter Summary ---
:1985 Author Organization [facility] Address [address] [place] [address] Care Team Providers Name Role Phone LopezRoselyn Shane PERAZA Primary Care Provider Reason for Visit Reason Comments PAP,ABNORMAL ASC-H, HPV+ non 16-18 Encounter Details Date Type Department Care Team Description 12/19/2017 Telephone Cervical Cancer Christine Johnson MD PAP,ABNORMAL (ASC-H, Screening and [address] HPV+ non 16-18) Management [facility] 5th Floor [address] [place] [address] [address] [address] [place] [address] [phone] Social History Tobacco Use Types Packs/Day Years [...] screening on 12/06/[address] Corona at [facility] Pap result(s): ASC-H, HPV+ (non 16/18), hx abnormal Colposcopy recommended per guidelines. Informed patient of results. Scheduled colposcopy. Patient given verbal preparation instructions forprocedure. Sent follow up BoostUp message. Future Appointments Date Time Provider Department Center 12/25/2017 1:00 PM Igor Kaufman MD [facility] PN POE FR Routing to provider as an FYI. SKILLED documented in this encounter Plan of Treatment Not on filedocumented as of this encounter Visit Diagnoses Not on filedocumented in this encounter Care Teams Auto Parts Clerk Relationship Specialty Start Date End Date Roselyn Marroquin PA-C PCP - General Physician Slot Operations Manager 08/09/16 [address] [place] [address] documented as of this encounter
--- OUTSIDE RECORDS SUMMARY | 2022-08-08 19:09 | XMS_ITS | Encounter Summary ---
:1985 Author Organization [facility] Address [address], [place] [address] Care Team Providers Name Role Phone Unassigned, Provider Primary Care Provider Unavailable Reason for Visit Reason Comments LAB RESULTS Encounter Details Date Type Department Care Team Description 07/03/2012 Telephone [facility] Arielle Spence LAB RESULTS [address] [place] [address] Social History Tobacco Use Types Packs/Day [...] verbalized understanding. Will discontinue the Bactrim and roller picker the script tonight for the Nitrofurantoin. [...] on filedocumented in this encounter Care Teams Greenhouse Or Nursery Transplanter Relationship Specialty Start Date End Date Unassigned, Provider PCP - General 12/01/00 02/17/16 [address] [place] [address] documented as of this encounter
--- OUTSIDE RECORDS SUMMARY | 2022-08-08 19:09 | XMS_ITS | Encounter Summary ---
:1985 Author Organization [facility] Address [address] [place] [address] Care Team Providers Name Role Phone Unassigned, Provider Primary Care Provider Unavailable Encounter Details Date Type Department Care Team Description 01/04/2015 Lab Visit [facility] Urinary frequency [address] [place] [address] Social History Tobacco Use [...] with patient. No treatment at this time. RECAPITULATION CLERK documented in this encounter Plan of Treatment Not on filedocumented as of this encounter Procedures Procedure Name Priority Date/Time Associated Comments Diagnosis AUTOMATED URINALYSIS Routine 01/04/2015 4:46 PM Urinary freque ncy Results for this DIPSTICK POCT CDT procedure are in the results section. documented in this encounter Results URINE DIPSTICK NPT ALEC OAKES AND ALEKSANDAR ONLY (01/04/2015 4:46 PM CDT) [facility] Method Time Signature Urine Type Urine:clean [...] U Specific 1.015 1.005 - HP CONVERSION [place] 1.030 Urobilinogen Negative Negative HP CONVERSION Urine Eu/dL Turbidity Clear Clear HP CONVERSION Color Yellow HP CONVERSION Specimen Anatomical Collection Method Collection Time Receive d Time (Source) Location / / Volume Laterality 01/04/2015 4:46 PM 5 4:46 CDT PM CDT Narrative HP CONVERSION - 01/04/2015 4:50 PM CDT Performed at [facility], [address] [place] [address] Transcriptions 11/30/2016 10:12 AM CSTNotes Recorded by Angela Daniels DO on 01/05/2015 at 11:29 AMdiscussed results with patient. No treatment at this time. Angela Daniels DO LAB_1 Performing Organization Address City/State/[facility] Code Phon e Number HP CONVERSION documented in this encounter Visit Diagnoses Diagnosis Urinary frequency documented in this encounter Care Teams Railway Traction Line Worker Relationship Specialty Start Date End Date Unassigned, Provider PCP - General 12/01/00 02/17/16 [address] [place] [address] documented as of this encounter
--- OUTSIDE RECORDS SUMMARY | 2022-08-08 19:09 | XMS_ITS | Encounter Summary ---
:1985 Author Organization [facility] Address [address], [place] [address] Care Team Providers Name Role Phone Roselyn Marroquin STU Primary Care Provider Reason for Referral Procedure/Equipment (Routine) - Incomplete Specialty Diagnoses / Procedures Referred By Contact Refer red To Contact Diagnoses Acute left ankle pain Aung Saeed PA-C Procedures XR Foot 3+ Views/Ankle 2 Views Series Lt [address] [facility] [address] [address] Referral ID Status Reason Start Date Expiration Date Visits V isits Requested Authorized [id number] Incomplete 05/29/2018 08/28/2019 1 1 Reason for Visit Reason Comments ANKLE PAIN Encounter Details Date Type Department Care Team Description 05/29/2018 Hospital Encounter [facility] Aung Saeed Ac dustin left ankle pain; Esteban Osorio PA-C Sprain of left ankle, unspecified ligame nt, initial encounter [address] [facility] [address] [place] [address] E [phone] [place] [address] Social History Tobacco Use Types Packs/Day Years [...] 12:00 PM CDT NAME: TELLO TERRELL MR#: [id number] CSN: [id number] AUTHENTICATING CLINICIAN: Aung Saeed PA-C CONFIRM #: [id number] LOC: 520 URGENT CARE PROGRESS NOTE DATE [...] it hurts. 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 SSK:JACOBY C: CONFIRM #: [id number] documented in this encounter Plan of Treatment [...] out. documented in this encounter Care Teams Third Rigger Relationship Specialty Start Date End Date Roselyn Marroquin PA-C PCP - General Physician Captain'S Assistant 08/09/16 [address] [place] [address] documented as of this encounter
--- OUTSIDE RECORDS SUMMARY | 2022-08-08 19:09 | XMS_ITS | Encounter Summary ---
:1985 Author Organization [facility] Address [address], [place] [address] Care Team Providers Name Role Phone Roselyn Marroquin PA-C Primary Care Provider Encounter Details Date Type Department Care Team Description 12/06/2017 Lab Visit [facility] Well adult exam [address] [place] [address] Social History Tobacco Use [...] - 12/06/2017 1:00 PM CST Letter sent. S INSPECTOR documented in this encounter Plan of [...] Volume Laterality 12/06/2017 12/06/2017 11:2 5 AM MINES INSPECTOR Narrative PN SOFT - 12/06/2017 12:35 PM MINES INSPECTOR Performed at [facility], [address] [place] [address] CLIA number [id number] Juaquin Corona MD LAB_1 Performing Organization Address City/[facility] Phon e Number PN SOFT [address] [place] [address] [phone] Glucose (12/06/2017) athologist Signature Lab Glucose 96 70 - 100 PN SOFT mg/dL Comment: The stated glucose range is for the fast ing state. Non-fasting glucose range is 70-180 mg/d L Specimen (Source) Anatomical Collection Method Collection Time Re ceived Time Location / / Volume Laterality 12/06/2017 12/06/2017 11:2 5 AM MINES INSPECTOR Narrative PN SOFT - 12/06/2017 12:35 PM MINES INSPECTOR Performed at [facility], [address] [place] [address] CLIA number [id number] Juaquin Corona MD LAB_1 Performing Organization Address City/[facility] Phon e Number PN SOFT [address] [place] [address] [phone] documented in this encounter Visit Diagnoses Diagnosis Well adult exam Routine general medical examination at a health care facility documented in this encounter Care Teams Supervisor/Port Director Relationship Specialty Start Date End Date Roselyn Marroquin PA-C PCP - General Physician Rubber Boots And Shoes Repairer 08/09/16 [address] [place] [address] documented as of this encounter
--- OUTSIDE RECORDS SUMMARY | 2022-08-08 19:09 | XMS_ITS | Encounter Summary ---
:1985 Author Organization [facility] Address [address], [place] [address] Care Team Providers Name Role Phone Roselyn Marroquin PA-C Primary Care Provider Reason for Visit Reason Comments Dental Conversion [facility] to [place] convers ion Encounter Details Date Type Department Care Team Description 03/29/2017 Dental Conversion [facility] Fatmata Sánchez, [facility] [address] [address] [facility] [address] [place], [place] [address] [place], [place] [phone] [address] Social History Tobacco Use Types Packs/Day Years [...] on filedocumented in this encounter Care Teams Customer Complaint Service Supervisor Relationship Specialty Start Date End Date Roselyn Marroquin PA-C PCP - General Physician Motor Pool Driver 08/09/16 [address] [place] [address] documented as of this encounter
--- OUTSIDE RECORDS SUMMARY | 2022-08-08 19:09 | XMS_ITS | Encounter Summary ---
:1985 Author Organization [facility] Address [address] [facility] [place] [address] Care Team Providers Name Role Phone Roselyn Marroquin PA-C Primary Care Provider Reason for Visit Reason Onset Date Comments RESULTS, TEST 08/17/2016 Encounter Details Date Type Department Care Team Description 08/17/2016 Telephone [facility] Roselyn Michael PA-C RESULTS, TEST [address] [facility] [address] [place] [address] [place], [place] [phone] (Wo rk) Social History Tobacco Use Types Packs/Day Years Used Date Smoking Tobacco: Every Day Cigarettes 0.5 Alcohol Use Standard Drinks/Week Comments Yes 1 (1 standard drink = 0.6 oz pure alcoho l) 1 monthly Sex Assigned at Date Recorded Not on file documented as of this encounter Nursing Notes Roselyn Marroquin PA-C - 08/30/2016 11:43 AM CST Thanks for the FYI. HRK CTORY OPERATOR Kellee Ramey, RN - 08/30/2016 11:20 AM CST Called pt and gave her test results. The patient indicates understanding of these issues and agrees with the plan. Future Appointments Date Time Provider Department Center 09/05/2016 1:00 PM Igor Kaufman MD [facility] PN POE FR CTORY OPERATOR Kellee Ramey RN - 08/17/2016 10:59 AM CDT Pt had appt with Kylah on 08/09/16. Called pt with pap results of ASCUS, HPV+ other, colp indicated. Attempted to call pt, no vmail set up. Will try again documented in this encounter Plan of Treatment Not on filedocumented as of this encounter Visit Diagnoses Not on filedocumented in this encounter Care Teams Keyseater Operator Relationship Specialty Start Date End Date Roselyn Marroquin PARavinderC PCP - General Physician Computer Networking Instructor 08/09/16 [address] [place] [address] documented as of this encounter
--- OUTSIDE RECORDS SUMMARY | 2022-08-08 19:09 | XMS_ITS | Encounter Summary ---
:1985 Author Organization [facility] Address [address] [facility] [place] [address] Care Team Providers Name Role Phone Unassigned, Provider Primary Care Provider Unavailable Reason for Visit Reason Comments VAGINITIS Urinary Frequency DIZZINESS Encounter Details Date Type Department Care Team Description 01/04/2015 Office Visit [facility] Angela Daniels Urinar y frequency (Primary Dx); Medicine DO Tobacco abuse [address] [address] [place] [address] [phone] Social History Tobacco Use Types Packs/Day Years [...] disorder documented in this encounter Care Teams System Auditor Relationship Specialty Start Date End Date Unassigned, Provider PCP - General 12/01/00 02/17/[address] [place] [address] documented as of this encounter
--- OUTSIDE RECORDS SUMMARY | 2022-08-08 19:09 | XMS_ITS | Encounter Summary ---
:1985 Author Organization [facility] Address [address] [place] [address] Care Team Providers Name Role Phone Roselyn Marroquin PA-C Primary Care Provider Reason for Visit Reason Comments COLPOSCOPY Encounter Details Date Type Department Care Team Description 09/05/2016 Procedure Visit [facility] Igor Stevenson COLPOSCOPY Services-SEWER DIGGER MD Tucker [address] [place] [address], [address] [place] [address] [address] [place] [address] [place], [place] [phone] (Wo rk) [address] [phone] Social History Tobacco Use Types Packs/Day Years Used Date Smoking Tobacco: Every Day Cigarettes 0.5 Alcohol Use Standard Drinks/Week Comments Yes 1 (1 standard drink = 0.6 oz pure alcoho l) 1 monthly Sex Assigned at Date Recorded Not on file documented as of this encounter Progress Notes Igor Stevenson - 09/05/2016 2:20 PM BROADLOOM WEAVER Addended by: IGOR STEVENSON on: 09/05/2016 02:20 PM Modules accepted: Orders DLOOM WEAVER Igor Stevenson - 09/05/2016 1:38 PM CST [...] findings. Post biopsy instructions given to patient. DLOOM WEAVER Igor Stevenson - 09/05/2016 1:35 PM BROADLOOM WEAVER Quick Note: Patient notified DLOOM WEAVER documented in this encounter Plan of Treatment Not on filedocumented as of this encounter Procedures Procedure Name Priority Date/Time Associated Comments Diagnosis CLINIC OBTAINED Routine 09/05/2016 2:33 PM ASCUS with positive Results for this ANATOMICAL PATHOLOGY BROADLOOM WEAVER high risk HPV proced ure are in cervical the results section. SURGICAL B[place]Y [place] Routine 09/05/2016 2:33 PM Re sults for this [place] BROADLOOM WEAVER procedure are i n the results section. POCT URINE Routine 09/05/2016 1:15 PM Encounter for Results for this BROADLOOM WEAVER test, procedure ar e in result unknown the results section. documented in this encounter Results Pathology Report (09/05/2016 2:33 PM BROADLOOM WEAVER) Specimen (Source) Anatomical Collection Method Collection Time Re ceived Time Location / / Volume Laterality 09/05/2016 2:33 PM BROADLOOM WEAVER Narrative PN SOFT - 09/07/2016 10:36 AM BROADLOOM WEAVER FINAL SURGICAL PATHOLOGY REPORT Pathology #: [id number] ? Date Obtained: 09/05/2016 ?Date Received: 09/06/2016 [...] MICROSCOPIC DESCRIPTION: Microscopic examination performed Performed at [facility], [facility] [place] [address] Igor Stevenson MD LAB_1 Performing Organization Address City/[facility] Phon e Number PN SOFT [address] [place] [address] Clinic Obtained Tissue [TIS] (09/05/2016 2:33 PM BROADLOOM WEAVER) P athologist Signature CLINIC Received PN SOFT OBTAINED TISSUE Specimen Anatomical Collection Method Collection Time Receive d Time (Source) Location / / Volume Laterality 09/05/2016 2:33 PM 6 2:32 BROADLOOM WEAVER AM BROADLOOM WEAVER Narrative PN SOFT - 09/06/2016 2:33 AM BROADLOOM WEAVER Performed at [facility], [address] [place] [address] CLIA number [id number] Igor Stevenson MD LAB_1 Performing Organization Address [facility] Phon e Number PN SOFT [address] [place] [address] [phone] POCT urine (09/05/2016 1:15 PM BROADLOOM WEAVER) [facility] gist Method Time Signature Urine Negative PN EXTERNAL Test - POC LAB-SEE SCANNED DOCUMENT Control Line Yes PN EXTERNAL Present, Clear LAB-SEE Background - SCANNED Internal DOCUMENT control Cartridge Lot# [id number] PN EXTERNAL LAB-SEE SCANNED DOCUMENT Comment: exp: Specimen (Source) Anatomical Collection Method Collection Time Re ceived Time Location / / Volume Laterality Urine specimen 09/05/2016 1:15 PM (specimen) BROADLOOM WEAVER Igor Stevenson MD PN POINT OF CARE TESTS Performing Organization Address City/State/ZIP Code Phon e Number PN EXTERNAL LAB-SEE SCANNED DOCUMENT documented in this encounter Visit Diagnoses Diagnosis 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
--- OUTSIDE RECORDS SUMMARY | 2022-08-08 19:09 | XMS_ITS | Encounter Summary ---
:1985 Author Organization [employer] Address [address] [address] Care Team Providers Name Role Phone Unassigned, Provider Primary Care Provider Unavailable Reason for Visit Reason Comments Patient Calling Back Encounter Details Date Type Department Care Team Description 11/09/2011 Telephone [facility] Arielle Spence Patient Calling Back [id number] [place] [address] Social History Tobacco Use [...] further questions or concerns at this time. ETING OPERATIONS CONSULTANT Lillian Means - 11/09/2011 12:30 PM CST Pt calling back for results. Neida Delcid RN - 11/09/2011 8:57 AM CST Left message for patient to call back for results. ETING OPERATIONS CONSULTANT Arielle Carvajal - 11/09/2011 8:50 AM [...] on filedocumented in this encounter Care Teams Hcc Coders Relationship Specialty Start Date End Date Unassigned, Provider PCP - General 12/01/00 02/17/[address] [place] [address] documented as of this encounter
--- OUTSIDE RECORDS SUMMARY | 2022-08-08 19:09 | XMS_ITS | Encounter Summary ---
:1985 Author Organization [facility] Address [address] [place] [address] Care Team Providers Name Role Phone Roselyn Marroquin PA-C Primary Care Provider Encounter Details Date Type Department Care Team Description 08/09/2016 Lab Visit [facility] Encounter for screening for lipoid disorders; [id number] Screening for diabetes donato keller; [place] [address] Dysmenorrhea; [phone] Metrorrhagia Social History Tobacco Use Types Packs/Day [...] [facility], [address] [place] [address] CLIA number [id number] Roselyn Marroquin PA-C LAB_1 Performing Organization Address [facility] Phon e Number PN SOFT [address] [place] [address] (ABNORMAL) CBC - Complete Blood Count-No Diff (08/09/2016 2:27 PM CDT) [facility] Method Time Signature White Blood [...] - 08/09/2016 2:34 PM CDT Performed at [facility], [address] [place] [address] CLIA number [id number] Roselyn Marroquin PA-C LAB_1 Performing Organization Address City/[facility]/ZIP Code Phon e Number PN SOFT [address] [place] [address] Glucose (08/09/2016 2:27 PM CDT) P athologist Signature Lab Glucose 91 60 - 100 PN SOFT mg/dL Specimen Anatomical Collection Method Collection Time Receive d Time (Source) Location / / Volume Laterality 08/09/2016 2:27 PM 6 5:08 CDT PM CDT Narrative PN SOFT - 08/09/2016 5:27 PM CDT Performed at [facility], [facility] [address] [place] [address] CLIA number [id number] Roselyn Marroquin PA-C LAB_1 Performing Organization Address City/[facility] Phon e Number PN SOFT [address] [place] [address] Lipid Panel - LDLD If Trig High [...] - 08/09/2016 5:27 PM CDT Performed at [facility], [address] [place] [id number] CLIA number [id number] Roselyn Marroquin PA-C LAB_1 Performing Organization Address City/[facility] Phon e Number PN SOFT [address] [place] [address] documented in this encounter Visit Diagnoses Diagnosis Encounter for screening for lipoid disor ders Screening for lipoid disorders Screening for diabetes mellitus Dysmenorrhea Metrorrhagia documented in this encounter Care Teams Plastic Battery Assembler Relationship Specialty Start Date End Date oRselyn Marroquin PA-C PCP - General Physician Pie Baker 08/09/16 [address] [place] [address] documented as of this encounter
--- OUTSIDE RECORDS SUMMARY | 2022-08-08 19:09 | XMS_ITS | Encounter Summary ---
:1985 Author Organization [facility] Address [address] [address] Care Team Providers Name Role Phone Unassigned, Provider Primary Care Provider Unavailable Reason for Visit Reason Comments DIZZINESS Back Pain Encounter Details Date Type Department Care Team Description 01/04/2015 Telephone [facility] Pcp, DIZZINESS; Back Pain Medicine Assignment [id number] [place] [address] Social History Tobacco Use Types Packs/Day Years [...] on filedocumented in this encounter Care Teams Strategic Buyer Relationship Specialty Start Date End Date Unassigned, Provider PCP - General 12/01/00 02/17/[address] [place] [address] documented as of this encounter
--- OUTSIDE RECORDS SUMMARY | 2022-08-08 19:09 | XMS_ITS | Encounter Summary ---
:1985 Author Organization [facility] Address [address] [place] [address] Care Team Providers Name Role Phone Unassigned, Provider Primary Care Provider Unavailable Reason for Visit Reason Comments Back Pain Encounter Details Date Type Department Care Team Description 09/07/2015 Office Visit [facility] Juaquin Corona Bilater al low back Medicine MD pain, with sciatica [address] presence unspecified [place], [place] (Primary Dx) [address] [phone] Social History Tobacco Use Types Packs/Day Years Used Date Smoking Tobacco: Never Assessed Sex Assigned at Date Recorded Not on file documented as of this encounter Last Filed Vital Signs Vital Sign Reading Time Taken Comments Blood Pressure 108/68 09/07/2015 10:23 AM LINE OPERATOR Pulse 80 09/07/2015 10:23 AM LINE OPERATOR Temperature - - Respiratory Rate - - Oxygen Saturation - - Inhaled Oxygen Concentration - - Weight 52.4 kg (115 lb 8 oz) 09/07/2015 10:23 AM LINE OPERATOR Height 167.6 cm (5' 6) 09/07/2015 10:23 AM LINE OPERATOR Body Mass Index 18.64 09/07/2015 10:23 AM LINE OPERATOR documented in this encounter Progress Notes Juaquin [...] Past Surgical History Procedure Laterality Date ??? [place] tooth extraction ??? Pleural scarification chest tube [...] pap. Juaquin Corona MD 10:48 AM 09/07/2015 OPERATOR documented in this encounter Plan of Treatment Not on filedocumented as of this encounter Visit Diagnoses Diagnosis Bilateral low back pain, with sciatica p resence unspecified ([facility]) - Primary documented in this encounter Care Teams Dynamite Packing Machine Feeder Relationship Specialty Start Date End Date Unassigned, Provider PCP - General 12/01/00 02/17/[address] [place] [address] documented as of this encounter
--- OUTSIDE RECORDS SUMMARY | 2022-08-08 19:09 | XMS_ITS | Encounter Summary ---
:1985 Author Organization [email or web address] Address [address], [place] [address] Care Team Providers Name Role Phone Lopez Roselyn Lynn PA-C Primary Care Provider Reason for Visit Procedure/Equipment (Routine) - Incomplete Specialty Diagnoses / Procedures Referred By Contact Refer red To Contact Diagnoses Acute left ankle pain Aung Saeed PA-C Procedures XR Foot 3+ Views/Ankle 2 Views Series Lt [address] [place] [address] Referral ID Status Reason Start Date Expiration Date Visits V isits Requested Authorized [id number] Incomplete 05/29/2018 08/28/2019 1 1 Encounter Details Date Type Department Care Team Description 05/29/2018 [facility] [place] [facility] [address] [place], [place] [address] Social History Tobacco Use Types Packs/Day Years [...] on filedocumented in this encounter Care Teams Modeling Agency Manager Relationship Specialty Start Date End Date Roselyn Marroquin PA-C PCP - General Physician [employer] 08/09/16 [address] [place] [address] documented as of this encounter
--- OUTSIDE RECORDS SUMMARY | 2022-08-08 19:09 | XMS_ITS | Encounter Summary ---
:1985 Author Organization [facility] Address [address] [place] [address] Care Team Providers Name Role Phone Unassigned, Provider Primary Care Provider Unavailable Encounter Details Date Type Department Care Team Description 07/02/2012 Lab Visit [facility] Dysuria [phone] [place] [address] Social History Tobacco Use Types Packs/Day [...] on 07/03/2012 at 4:47 PMChanged to Nitrofurantoin DENT CARE ASSISTANT Miscellaneous - 12/01/2016 2:49 PM CSTNotes Recorded by Arielle Blevins PA-C on 07/03/2012 at 4:47 PMChanged to Nitrofurantoin DENT CARE ASSISTANT documented in this encounter Plan of Treatment [...] Component Value Ref Test Analysis Performed At [facility] Range Method Time Signature Urine Culture HP [...] (ABNORMAL) URINE MICROSCOPIC (07/02/2012 12:08 PM CDT) [facility] Method Time Signature Urine WBC 0-2 0 [...] - 07/02/2012 12:22 PM CDT Performed at [facility], [address] [place] [address] Transcriptions 12/01/2016 2:49 PM CSTNotes Recorded by Arielle Blevins PA-C on 07/03/2012 at 4:47 PMChanged to Nitrofurantoin Arielle Blevins LAB_1 Performing Organization Address City/[facility] Code Phon e Number HP CONVERSION (ABNORMAL) URINALYSIS ROUTINE, MICRO/CULTURE IF POS (07/02/2012 12:08 PM CDT) [facility] Method Time Signature Urine Type Urine:clean [...] U Specific 1.020 1.005 - HP CONVERSION [place] 1.030 Urobilinogen Negative Negative HP CONVERSION Urine Eu/dL Specimen Anatomical Collection Method Collection Time Receive d Time (Source) Location / / Volume Laterality Urine: 07/02/2012 12:08 07/02/2012 PM CDT 12:08 PM CDT Narrative HP CONVERSION - 07/02/2012 12:22 PM CDT Performed at [facility], [address] [place] [address] Transcriptions 12/01/2016 2:49 PM CSTNotes Recorded by Arielle Blevins PA-C on 07/03/2012 at 4:47 PMChanged to Nitrofurantoin Arielle Blevins LAB_1 Performing Organization Address [facility] Phon e Number HP CONVERSION documented in this encounter Visit Diagnoses Diagnosis Dysuria documented in this encounter Care Teams Geochemist Relationship Specialty Start Date End Date Unassigned, Provider PCP - General 12/01/00 02/17/[address] [place] [address] documented as of this encounter
--- OUTSIDE RECORDS SUMMARY | 2022-08-08 19:09 | XMS_ITS | Encounter Summary ---
:1985 Author Organization [facility] Address [address] [place] [address] Care Team Providers Name Role Phone Roselyn Marroquin PA-C Primary Care Provider Reason for Referral Consult/Transfer Care (Routine) - Closed Specialty Diagnoses / Procedures Referred By Contact Refer red To Contact Diagnoses Dysmenorrhea Metrorrhagia Roselyn Marroquin PA-C [address] [place] [address] Referral ID Status Reason Start Date Expiration Date Visits Requ ested Visits Authorized [id number] Closed 08/09/2016 11/08/2017 1 1 Scheduling Instructions Your provider has recommended an appoint ment with [facility]. You may call [phone] to schedule your appointment. If you do [...] Department Care Team Description 08/09/2016 Office Visit [facility] Roselyn Marroquin, Annual physical exam (Primary Dx); Medicine STU Vaginal discharge; [address] [address] [facility] Urinary frequency; [place], [place] Encounter for screening for lipoid disorders; [phone] Screening for diabetes mellitus; [phone] Dysmenorrhea; (Work) Metrorrhagia; Encounter for smoking cessation [...] help with mood and energy. 5) Call THEATER USHER at number below to schedule to discuss [...] CBC. Discussed Mirena IUD, will send to ethologist. Currently isn't doing any control. Is OK [...] pilates 3x per week. 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 Supplements: None. Senior Engineering Team Leader History: : No obstetric history on file. LMP: Patient's last menstrual period was 07/17/2016 (exact date). Pap hx: Does patient have history of abnormal pap smear? yes. Years ago. Past Medical, Family, Surgical and Social History, Drug allergies and Medications have been reviewedand updated in [place] today. Review of Systems: The remainder of [...] external genitalia and urethra, without lesions noted. [place], moist vaginal and cervical mucosa, without lesions, [...] T4 (FRT4 If TSH Abnorm); Future - Ob-Plastic And Reconstructive Surgeon Consult Metrorrhagia - CBC - Complete Blood Count-No Diff; Future - TSH And Free T4 (FRT4 If TSH Abnorm); Future - Ob-Plastic And Reconstructive Surgeon Consult Encounter for smoking cessation counseling (HRC) [...] help with mood and energy. 5) Call THEATER USHER at number below to schedule to discuss Mirena IUD to help decrease the bleeding and cramping with your periods. 6) I'll notify you of your labs. Thanks, Roselyn Marroquin, PAC. documented in this encounter Plan of Treatment Scheduled Referrals Name Type Priority Associated Diagnoses Order S chedule Ob-Plastic And Reconstructive Surgeon Consult Referral Routine Dysmenorrhea Ordered: 08/09/2016 Metrorrhagia [...] - 08/09/2016 11:28 PM CDT Performed at [facility], [address] [place] [address] CLIA number [id number] Roselyn Marroquin PA-C LAB_1 Performing Organization Address City/[facility]/ZIP Code Phon e Number PN SOFT [address] [place] [address] (ABNORMAL) CBC - Complete Blood Count-No Diff (08/09/2016 2:27 PM CDT) [facility] gist Method Time Signature White Blood [...] - 08/09/2016 2:34 PM CDT Performed at [facility], [facility] [place] [address] CLIA number [id number] Roselyn Marroquin PA-C LAB_1 Performing Organization Address City/[facility] Code Phon e Number PN SOFT [address] [place] [address] [phone] Glucose (08/09/2016 2:27 PM CDT) athologist Signature Lab Glucose 91 60 - 100 PN SOFT mg/dL Specimen Anatomical Collection Method Collection Time Receive d Time (Source) Location / / Volume Laterality 08/09/2016 2:27 PM 6 5:08 CDT PM CDT Narrative PN SOFT - 08/09/2016 5:27 PM CDT Performed at [facility], [address] [place] [id number] CLIA number [id number] Roselyn Marroquin PA-C LAB_1 Performing Organization Address [facility] Phon e Number PN SOFT [address] [place] [address] Lipid Panel - LDLD If Trig High [...] - 08/09/2016 5:27 PM CDT Performed at [facility], [address] [place] [address] CLIA number [id number] Roselyn Marroquin PA-C LAB_1 Performing Organization Address [facility] Phon e Number PN SOFT [address] [place] [address] Pap Smear (08/09/2016 2:22 PM CDT) Specimen (Source) Anatomical Collection Method Collection Time Re ceived Time Location / / Volume Laterality 08/09/2016 2:22 PM CDT Narrative PN SOFT - 08/16/2016 3:49 PM CDT FINAL GYNECOLOGICAL CYTOLOGY REPORT Pathology #: [id number] ?Date Obtained: 08/09/2016 ? Date Received: 08/10/2016 INTERPRETATION/RESULTS: Atypical squamous cells of undetermined significance (ASCUS). If requested and applicable, HPV testing wi ll be performed and reported separately, per ACOG guidelines. SPECIMEN ADEQUACY: Satisfactory for Evaluation. ??Endocervi eusebio cells/transformation zone component present. Verified on 08/16/2016 ??by JOSE GRUBER MD (electronic signature) CLINICAL NOTES: ?Abnormal bleeding: No, LMP: [id number], Menstrual status: None ?Apply, Current form of [...] false-negative report s may occur. Performed at [facility], [address] [place] [address] Roselyn Marroquin PA-C LAB_1 Performing Organization Address City/State/ZIP Code Phon e Number PN SOFT [address] [place] [address] (ABNORMAL) HPV with 16 18 Genotyping (08/09/2016 2:22 PM CDT) [facility] Method Time Signature HPV High Risk [...] and its pe rformance characteristics determined by [facility]. It has not been cleared or approved by [facility]. The laboratory is regulated under [...] - 08/14/2016 12:22 PM CDT Performed at [address] [address] CLIA number [id number] Roselyn Marroquin PA-C LAB_1 Performing Organization Address [facility] Phon e Number PN SOFT [address] [place] [address] [phone] Chlamydia and GC STD (08/09/2016 2:22 PM CDT) [facility] gist Method Time Signature Chlamydia Negative Negative PN SOFT Trachomatis STD Comment: Test Performed by [employer] CLIA Number [id number] N. gonorrhoeae STD Negative Negative PN SOFT Comment: Test Performed by [employer] Ampl[employer] Performed at [facility], [address] [place] [address] CLIA Number [id number] Source STD Cervix PN SOFT Comment: CLIA Number [id number] Specimen Anatomical Collection Method Collection Time Receive d Time (Source) Location / / Volume Laterality 08/09/2016 2:22 PM 6 6:50 CDT PM CDT Roselyn Marroquin PA-C LAB_1 Performing Organization Address [facility] Phon e Number PN SOFT [address] [place] [address] Pap Test Order (08/09/2016 2:22 PM CDT) Analysis Performed At [facility] logist Time Signature Pap Smear Collected PN SOFT Monolayer tracking test Specimen Anatomical Collection Method Collection Time Receive d Time (Source) Location / / Volume Laterality 08/09/2016 2:22 PM 6 5:34 CDT AM CDT Roselyn Marroquin PA-C LAB_1 Performing Organization Address [facility]/ZIP Code Phon e Number PN SOFT [address] [place] [address] Vaginitis Panel, DNA Probe (08/09/2016 2:22 PM CDT) [facility] Method Time Signature Trichomonas Not Detected Not Detected PN SOFT vaginalis Gardnerella Not Detected Not Detected PN SOFT vaginalis Alie species Not Detected Not Detected PN SOFT Specimen Anatomical Collection Method Collection Time Receive d Time (Source) Location / / Volume Laterality 08/09/2016 2:22 PM 6 8:41 CDT PM CDT Narrative PN SOFT - 08/10/2016 10:48 AM CDT Performed at [facility], [address] [place] [address] CLIA number [id number] Roselyn Marroquin PA-C LAB_1 Performing Organization Address City/[facility]/ZIP Code Phon e Number PN SOFT [address] [place] [address] UR NPT Hold for Culture (08/09/2016 1:39 PM CDT) [facility] Method Time Signature Urine Type [...] U Specific 1.020 1.005 - PN SOFT [place] 1.030 Urobilinogen Negative Negative PN SOFT Urine Eu/dL Turbidity Clear Clear PN SOFT Color Yellow PN SOFT Specimen Anatomical Collection Method Collection Time Receive d Time (Source) Location / / Volume Laterality 08/09/2016 1:39 PM 6 1:39 CDT PM CDT Narrative PN SOFT - 08/09/2016 1:45 PM CDT Performed at [facility], [address] [place] [address] CLIA number [id number] Roselyn Marroquin PA-C LAB_1 Performing Organization Address City/State/ZIP Code Phon e Number PN SOFT [address] [place] [address] documented in this encounter Visit Diagnoses Diagnosis Annual physical exam - Primary Routine general medical examination at a health care facility Vaginal discharge Leukorrhea, not specified as infective Urinary frequency Encounter for screening for lipoid disor ders Screening for lipoid disorders Screening for diabetes mellitus Dysmenorrhea Metrorrhagia Encounter for smoking cessation counseli alley ([facility]) Counseling on substance use and abuse Urinary frequency Encounter for screening for lipoid disor ders Screening for lipoid disorders Screening for diabetes mellitus Dysmenorrhea Metrorrhagia documented in this encounter Care Teams Oracle Ebs Developer Relationship Specialty Start Date End Date Roselyn Marroquin PA-C PCP - General Physician Sales Vendor 08/09/16 [address] [place] [address] documented as of this encounter
--- OUTSIDE RECORDS SUMMARY | 2022-08-08 19:09 | XMS_ITS | Encounter Summary ---
:1985 Author Organization [facility] Address [address], [place] [address] Care Team Providers Name Role Phone Unassigned, Provider Primary Care Provider Unavailable Reason for Visit Reason Comments Back Pain WART, PLANTAR Encounter Details Date Type Department Care Team Description 07/02/2012 Office Visit dAiel Mckinley Arielle Carvajal UTI (u rinary tract infection); Medicine Plantar wart; [address] Need for diphtheria-tetanus- pertussis (Tdap) vaccine; [place], [place] Need for hepat itis vaccination; [phone] Need for influenza vaccinati on; [phone] Dysuria Social History Tobacco Use Types Packs/Day [...] Neg - Trace (mg/dL) ??? U Specific [place] 1.020 1.005-1.030 ??? Urobilinogen Urine Negative Negative [...] not specif ied Plantar wart Need for etmmomyrns-aojkuzv-wfhhvzjdn (T dap) vaccine Need for prophylactic vaccination with c ombined pmrsfdoujg-utjevih-qbxmisgjl (DTP) vaccine Need for hepatitis vaccination Need for prophylactic vaccination and in oculation against viral hepatitis Need for influenza vaccination Need for prophylactic vaccination and in oculation against influenza Dysuria documented in this encounter Care Teams Sound Installation Worker Relationship Specialty Start Date End Date Unassigned, Provider PCP - General 12/01/00 02/17/[address] [place] [address] documented as of this encounter
--- OUTSIDE RECORDS SUMMARY | 2022-08-08 19:09 | XMS_ITS | Encounter Summary ---
:1985 Author Organization [facility] Address [address], [place] [address] Care Team Providers Name Role Phone LopezVinnyRoselyndonald Lynn PA-C Primary Care Provider Encounter Details Date Type Department Care Team Description 08/09/2016 Lab Visit [facility] Urinary frequency [address] [place] [address] Social History Tobacco Use [...] for Culture (08/09/2016 1:39 PM CDT) [facility] Method Time Signature Urine Type [...] U Specific 1.020 1.005 - PN SOFT [place] 1.030 Urobilinogen Negative Negative PN SOFT Urine Eu/dL Turbidity Clear Clear PN SOFT Color Yellow PN SOFT Specimen Anatomical Collection Method Collection Time Receive d Time (Source) Location / / Volume Laterality 08/09/2016 1:39 PM 10/19/201 6 1:39 CDT PM CDT Narrative PN SOFT - 08/09/2016 1:45 PM CDT Performed at [facility], [address] [place] [address] CLIA number [id number] Roselyn Marroquin PA-C LAB_1 Performing Organization Address City/State/ZIP Code Phon e Number PN SOFT [address] [place] [address] [phone] documented in this encounter Visit Diagnoses Diagnosis Urinary frequency documented in this encounter Care Teams Patient Care Technician Relationship Specialty Start Date End Date Roselyn Marroquin PA-C PCP - General Physician Salesperson Flowers 08/09/16 [address] [place] [address] documented as of this encounter
--- OUTSIDE RECORDS SUMMARY | 2022-08-08 19:09 | XMS_ITS | Encounter Summary ---
:1985 Author Organization [employer] Address [address], [place] [address] Care Team Providers Name Role Phone LopezRoselyn Shane PERAZA Primary Care Provider Reason for Visit Reason Comments Dysuria couple day, blood in urine a nd when wiping Encounter Details Date Type Department Care Team Description 06/26/2018 Office Visit [facility] Jarett Gutierrez MD Acute cystitis with hematuria (Primary D x); Medicine [address] [place] [address] Viral upper respiratory tract infection; [address] [place], [place] Dysuria; [place] [address] Encounter for test, result unk nown [phone] (Wo rk) Social History Tobacco Use Types [...] Body Mass Index 20.03 12/06/2017 9:54 AM ENVIRONMENTAL MONITORING TECHNICIAN documented in this encounter Patient Instructions Patient [...] can you learn more? 1. Go to [employer] or D[employer]. 2. Enter K848 in the search box. Current as of: March 02, 2017 Content Version: 11.7 ?? [id number] [employer] 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 Smoking status: [...] - Trace mg/dL Final ??? U Specific [place] 06/26/2018 1.020 1.005 - 1.030 Final ??? [...] - 06/26/2018 2:44 PM CDT Performed at [facility] [address] [place] [address] CLIA number [id number] Jarett Gutierrez MD LAB_1 Performing Organization Address [facility] Phon e Number PN SOFT [address] [place] [address] (ABNORMAL) Urine Microscopic (06/26/2018 2:05 PM CDT) [...] - 06/26/2018 2:19 PM CDT Performed at [facility] [address] [place] [address] CLIA number [id number] Jarett Gutierrez MD LAB_1 Performing Organization Address [facility] Phon e Number PN SOFT [address] [place] [address] (ABNORMAL) Urine Culture (06/26/2018 2:05 PM CDT) [...] - 06/27/2018 8:58 PM CDT Performed at [facility], [address] [place] [address], CLIA Number [id number] Jarett Gutierrez MD LAB_1 Performing Organization Address City/[facility] Phon e Number PN SOFT [address] [place] [address] (ABNORMAL) Urinalysis Routine, Micro/Culture if Pos (06/26/2018 2:05 PM CDT) [facility] gist Method Time Signature Urine Type URINE:clean [...] U Specific 1.020 1.005 - PN SOFT [place] 1.030 Urobilinogen Negative Negative PN SOFT Urine Eu/dL Specimen (Source) Anatomical Collection Method Collection Time Re ceived Time Location / / Volume Laterality Urine: 06/26/2018 2:05 PM CDT Narrative PN SOFT - 06/26/2018 2:11 PM CDT Performed at [facility] [address] [place] [address] CLIA number [id number] Jarett Gutierrez MD LAB_1 Performing Organization Address [facility] Phon e Number PN SOFT [address] [place] [address] documented in this encounter Visit Diagnoses Diagnosis Acute cystitis with hematuria - Primary Acute cystitis Viral upper respiratory tract infection Acute upper respiratory infections of un specified site Dysuria Encounter for test, result unk nown documented in this encounter Care Teams User Interface Developer Relationship Specialty Start Date End Date Roselyn Marroquin PA-C PCP - General Physician Candy Dipper Hand 08/09/16 [address] [place] [address] documented as of this encounter
--- OUTSIDE RECORDS SUMMARY | 2022-08-08 19:09 | XMS_ITS | Encounter Summary ---
:1985 Author Organization [facility] Address [address], [place] [address] Care Team Providers Name Role Phone Unassigned, Provider Primary Care Provider Unavailable Reason for Visit Reason Comments Rash Cough Pharyngitis Encounter Details Date Type Department Care Team Description 08/19/2013 Office Visit [facility] Mingo Terrell M D Skin lesion (Primary Dx); Medicine [address] Tinea versicolor; [address] [place], [place] [phone] Social History Tobacco Use Types Packs/Day Years [...] Filed: 08/21/131101 Note Time: 08/20/13822 Status: Signed Streets And Buildings Decorator: Mingo Terrell MD (Physician) NAME: TELLO TERRELL MR#: [id number] CSN: [id number] AUTHENTICATING CLINICIAN: Mingo Terrell MD CONFIRM #: [id number] LOC: 4402 CLINIC PROGRESS NOTE DATE OF VISIT: 08/19/2013 : 1985 SUBJECTIVE: A 27-year-old, female. She is here with her daughter. 1. The patient complains about rash in her left lower leg, on the lateral side, for a couple months.She has a mi'kmaq around it. She used ldle-txg-bspvgjv ringworm cream in the last 3 days, [...] her left lateral foot, she has a mi'kmaq in the size of a quarter. The [...] also was negative, but she was using nvag-rgz-wnghhup medication for depression, anxiety. She will make an appointment and come back. Any concern, back to the clinic. Otherwise, will follow up as above. She agreed. YO:MEDQ C: CONFIRM #: [id number] documented in this encounter Plan of Treatment [...] CDT procedure are in the results section. TAWANAN PREP Routine 08/19/2013 5:00 PM Skin lesion Results f or this CDT procedure are i n the results section. documented in this encounter Results BETA STREP FOLLOWUP (08/19/2013 5:39 PM CDT) [facility] Method Time Signature Source Throat HP [...] (08/19/2013 5:28 PM CDT) Analysis Performed At [facility] logist Time Signature Strep A Negative Negative HP CONVERSION Antigen Strep A Source Throat: HP CONVERSION Specimen Anatomical Collection Method Collection Time Receive d Time (Source) Location / / Volume Laterality 08/19/2013 5:28 PM 3 5:39 CDT PM CDT Narrative HP CONVERSION - 08/19/2013 5:43 PM CDT Performed at [facility], [address] [place] [address] Mingo Terrell MD LAB_1 Performing Organization Address [facility] Phon e Number HP CONVERSION TAWANNA Prep (08/19/2013 5:00 PM CDT) [facility] gist Method Time Signature TAWANNA Yeast None Seen HP CONVERSION TAWANNA Fungus None Seen HP CONVERSION TAWANNA Pseudo None Seen HP CONVERSION Hypae TAWANNA Source Skin HP CONVERSION Scraping ( Specimen Anatomical Collection Method Collection Time Receive d Time (Source) Location / / Volume Laterality 08/19/2013 5:00 PM 3 5:01 CDT PM CDT Narrative HP CONVERSION - 08/19/2013 5:02 PM CDT Performed at [facility], [address] [place] [address] Mingo Terrell MD LAB_1 Performing Organization Address City/[facility]/ZIP Code Phon e Number HP CONVERSION documented in this encounter Visit Diagnoses Diagnosis Skin lesion - Primary Unspecified disorder of skin and subcuta neous tissue Tinea versicolor Pityriasis versicolor Acute pharyngitis documented in this encounter Care Teams [employer] Resource Center Teacher Relationship Specialty Start Date End Date Unassigned, Provider PCP - General 12/01/00 02/17/16 [address] [place] [address] documented as of this encounter
--- OUTSIDE RECORDS SUMMARY | 2022-08-08 19:09 | XMS_ITS | Encounter Summary ---
:1985 Author Organization [facility] Address [address], [place] [address] Care Team Providers Name Role Phone Needs Pcp, Assignment Primary Care Provider Reason for Visit Reason Comments Cough Vaginal Discharge Encounter Details Date Type Department Care Team Description 02/18/2016 Hospital Encounter [facility] Trivedi, Acute vaginitis; Care MD Viral URI; [address] Urinary tract infection, site unspecifie d; Drive [place], [place] BV (bacterial vaginosis) [place] [address] [phone] Social History Tobacco Use Types Packs/Day Years [...] continues to smoke 1/2 PPD, is using [employer] dimetapp and it helps. 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 She has had no fevers with [...] components within normal limits Narrative: Performed at [facility], [address] [place] [address] CLIA number [id number] LAB WET PREP - Abnormal; Notable for the following: WETPR Clue Cells Moderate (*) All other components within normal limits Narrative: Performed at [facility], [address] [place] [address] CLIA number [id number] LAB URINE MICROSCOPIC - Abnormal; Notable for the following: Bacteria Urine Moderate (*) All other components within normal limits Narrative: Performed at [facility], [address] [place] [address] CLIA number [id number] X-Rays: Xr Chest * Pa And Left [...] Where can you learn more? Go to maufait/EcoStart and enter X360 in the search box. Current as of: April 22, 2015 Content Version: 108 ?? [id number] [employer], [employer]. Upper Respiratory Infection (Cold): Care Instructions Your [...] include drinking lots of fluids and taking rnuw-ubq-ydwuzgt pain medicine. You will probably feel better [...] of fluids you drink. ?? Take an cpwn-wcv-qoitwnj pain medicine, such as acetaminophen (Tylenol), ibuprofen (Advil, Motrin), or naproxen (Aleve). Read and follow all instructions on the label. ?? Before you use cough and cold medicines, check the label. These medicines may not be safe for young children or for people with certain health problems. ?? Be careful when taking syls-dag-oawfcqk cold or flu medicines and Tylenol at [...] Where can you learn more? Go to maufait/Algramorary and enter K520 in the search box. Current as of: June 11, 2015 Content Version: 108 ?? [phone] [employer], [employer]. RTC p.r.n. documented in this encounter Miscellaneous [...] the original note were not included. [facility] [address] [facility] [address] Dept: [phone] [email or web address] Betty Tai 02/18/2016 2:51 PM UC Description: Female : 1985 Department: [facility] Thank you for choosing [facility] for your health care visit with Awilda Trivedi MD.We are happy to care for you and provide this summary of your visit. Your primary caretaker is currently listed as Assignment Needs PCP. HERE IS WHAT YOU NEED TO KNOW To learn how you can take steps to stay as healthy as you can be visit [email or web address] Discharge Instructions Bacterial Vaginosis: Care Instructions Your [...] Where can you learn more? Go to maufait/Algramorary and enter X360 in the search box. Current as of: April 22, 2015 Content Version: 108 ?? [phone] [employer], [facility]. Upper Respiratory Infection (Cold): Care [...] include drinking lots of fluids and taking ozqb-niw-vguxfwj pain medicine.You will probably feel better in [...] of fluids you drink. ?? Take an qodr-crk-gaglwmh pain medicine, such as acetaminophen (Tylenol), ibuprofen (Advil, Motrin), or naproxen (Aleve). Read and follow all instructions on the label. ?? Before you use cough and cold medicines, check the label. These medicines may not be safe for young children or for people with certain health problems. ?? Be careful when taking jldu-nez-uhfpncv cold or flu medicines and Tylenol at [...] Where can you learn more? Go to maufait/Algramorary and enter K520 in the search box. Current as of: June 11, 2015 Content Version: 108 ?? [phone] [employer]. HERE IS WHAT YOU NEED TO DO Call your clinic if: You develop new symptoms Your symptoms worsen unexpectedly You are not improving as expected You have questions about your visit or medications Your to do list Future Orders Complete By Ordering Dept. PHYSICAL THERAPY CONSULT ADULT/PEDS (LIBERTY) As directed [facility] Scheduling Instructions: Your provider has recommended an appointment with [facility]. You may call [phone] to schedule your appointment. If you prefer, a computer support specialist will contact you within the next 3 [...] Negative Neg - Trace mg/dL U Specific Dexter 1.015 1.005 - 1.030 Urobilinogen Urine Negative [...] Ethnicity Preferred Language 1985 Female White Non- Paragu[place] This document contains confidential information about your [...] (ABNORMAL) URINE MICROSCOPIC (02/18/2016 3:40 PM CDT) [facility] Riidr Method Time Signature Urine WBC 0-2 0 [...] - 02/18/2016 4:04 PM CDT Performed at [facility], [address] [place] [address] CLIA number [id number] Awilda Trivedi MD LAB_1 Performing Organization Address City/State/ZIP Code Phon e Number HP CONVERSION (ABNORMAL) WET PREP (02/18/2016 3:40 PM CDT) [facility] Riidr Method Time Signature WETPR White Moderate None [...] - 02/18/2016 3:51 PM CDT Performed at [facility], [facility] [address] [place] [address] CLIA number [id number] Awilda Trivedi MD LAB_1 Performing Organization Address [facility] Phon e Number HP CONVERSION (ABNORMAL) URINALYSIS ROUTINE(MICRO IF POS) (02/18/2016 3:40 PM CDT) [facility] Method Time Signature Urine Type Urine:clean [...] U Specific 1.015 1.005 - HP CONVERSION Dexter 1.030 Urobilinogen Negative Negative HP CONVERSION Urine Eu/dL Specimen Anatomical Collection Method Collection Time Receive d Time (Source) Location / / Volume Laterality Urine: 02/18/2016 3:40 PM 6 3:46 CDT PM CDT Narrative HP CONVERSION - 02/18/2016 4:04 PM CDT Performed at [facility], [facility] [address] [place] [address] CLIA number [id number] Awilda Trivedi MD LAB_1 Performing Organization Address [facility] Phon e Number HP [...] that is more due to the coughing. INSPECTOR documented in this encounter Care Teams Attendant Lodging Facilities Relationship Specialty Start Date End Date Needs Pcp, Assignment PCP - General 02/18/16 08/08/16 [place] [address] documented as of this encounter
--- OUTSIDE RECORDS SUMMARY | 2022-08-08 19:09 | XMS_ITS | Encounter Summary ---
:1985 Author Organization [facility] Address [address] [place] [address] Care Team Providers Name Role Phone Needs Pcp, Assignment Primary Care Provider Reason for Visit Reason Onset Date Comments Other 07/31/2016 Encounter Details Date Type Department Care Team Description 07/31/2016 Telephone CODING DEPT ONLY 5050 Needs Pcp, Assignment Other [facility] [address] [place] [address] [address] Social History Tobacco Use Types Packs/Day Years [...] on filedocumented in this encounter Care Teams Polysomnographer Relationship Specialty Start Date End Date Needs Pcp, Assignment PCP - General 02/18/16 08/08/16 [place] [address] documented as of this encounter
--- OUTSIDE RECORDS SUMMARY | 2022-08-08 19:09 | XMS_ITS | Encounter Summary ---
:1985 Author Organization [facility] Address [address], [place] [address] Care Team Providers Name Role Phone Unassigned, Provider Primary Care Provider Unavailable Reason for Visit Reason Comments DANNY CHAMPAGNE Encounter Details Date Type Department Care Team Description 01/11/2012 [facility] Arielle Carvajal (Primary Medicine Dx) [address] [place] [phone] Social History Tobacco Use Types Packs/Day Years [...] Primary documented in this encounter Care Teams Service Counselor Relationship Specialty Start Date End Date Unassigned, Provider PCP - General 12/01/00 02/17/[address] [place] [address] documented as of this encounter
--- OUTSIDE RECORDS SUMMARY | 2022-08-08 19:09 | XMS_ITS | Encounter Summary ---
:1985 Author Organization [employer] Address [address] [place] [address] Care Team Providers Name Role Phone Roselyn Marroquin PA-C Primary Care Provider Reason for Visit Reason Comments ROUTINE HEALTH MAINTENANCE Encounter Details Date Type Department Care Team Description 12/06/2017 Office Visit [facility] ChloeJuaquin Well ad ult exam (Primary Dx); Medicine Pap smear of cervix reminder not needed forever; [address] [address] [facility] Tinea versicolor; [place], [place] Tobacco abuse [address] [phone] Social History Tobacco Use Types Packs/Day Years [...] Comments Blood Pressure 110/62 12/06/2017 9:54 AM INFORMATION SYSTEMS ARCHITECT Pulse 88 12/06/2017 9:54 AM INFORMATION SYSTEMS ARCHITECT Temperature - - Respiratory Rate - - Oxygen Saturation - - Inhaled Oxygen Concentration - - Weight 55.4 kg (122 lb 1.6 oz) 12/06/2017 9:54 AM INFORMATION SYSTEMS ARCHITECT Height 165.7 cm (5' 5.25) 12/06/2017 9:54 AM INFORMATION SYSTEMS ARCHITECT Body Mass Index 20.16 12/06/2017 9:54 AM INFORMATION SYSTEMS ARCHITECT documented in this encounter Progress Notes Sonia Alexander RN - 12/19/2017 12:12 PM CST See telephone encounter initiated 12/19/2017 to notify patient of results. RMATION SYSTEMS ARCHITECT Juaquin Corona MD - 12/06/2017 10:00 AM [...] (DIFLUCAN) 150 MG tablet 4. Tobacco abuse ([facility]) Z72.0 nicotine (NICODERMCQ) 14 MG/24HR patch [...] year Juaquin Corona MD 9:13 AM 12/07/2017 RMATION SYSTEMS ARCHITECT documented in this encounter Plan of Treatment Not on filedocumented as of this encounter Procedures Procedure Name Priority Date/Time Associated Comments Diagnosis PAP TEST ORDER Routine 12/06/2017 10:26 AM Pap smear of cervix Results for this INFORMATION SYSTEMS ARCHITECT reminder not needed procedur e are in forever the results section. HPV WITH 16 18 Routine 12/06/2017 10:26 AM Well adult exam Res ults for this GENOTYPING, INFORMATION SYSTEMS ARCHITECT procedure are i n CERVICAL/ENDOCERVICA the res ults L section. ANATOMICAL PATH Routine 12/06/2017 10:26 AM Well adult exam Re sults for this LIQUID BASED INFORMATION SYSTEMS ARCHITECT procedure are i n the results section. documented in this encounter Results Pap Smear (12/06/2017 10:26 AM INFORMATION SYSTEMS ARCHITECT) Specimen (Source) Anatomical Collection Method Collection Time Re ceived Time Location / / Volume Laterality 12/06/2017 10:26 AM INFORMATION SYSTEMS ARCHITECT Narrative PN SOFT - 12/16/2017 6:26 PM INFORMATION SYSTEMS ARCHITECT FINAL GYNECOLOGICAL CYTOLOGY REPORT Pathology #: [id number] ?Date Obtained: 12/06/2017 ? Date Received: 12/07/2017 INTERPRETATION/RESULTS: Atypical squamous cells, cannot exclude high grade squamous intraepithelial lesion (ASC-H). SPECIMEN ADEQUACY: Satisfactory for Evaluation. ??Endocervi eusebio cells/transformation zone component present. Verified on 12/16/2017 ??by HENRIQUE BUENROSTRO MD (electronic signature) CLINICAL NOTES: ?Abnormal bleeding: No, LMP: [phone], Menstrual status: None ?Apply, Current form of [...] & [facility], [address] [place] [address] Juaquin Corona MD LAB_1 Performing Organization Address City/State/ZIP Code Phon e Number PN SOFT [address] [place] [address] [phone] (ABNORMAL) HPV with 16 18 Genotyping (12/06/2017 10:26 AM INFORMATION SYSTEMS ARCHITECT) [facility] Method Time Signature HPV High Risk Not Detected PN SOFT 16 HPV High Risk Not Detected PN SOFT 18 Other HPV High Detected (A) PN SOFT Risk Not 16/18 Comment: ........................................ ................................. The Manpreet HPV Test is a qualitative in v itro test for the detection of Human Papillomavirus in [facility] patient specimens. ??The test utilizes amplifica [...] and its pe rformance characteristics determined by [facility]. It has not been cleared or approved by [facility]. The laboratory is regulated under CLIA as qualified to perform high-complexity testing. This test is used for clinical purposes. It should not be regarded as investigational or fo r research. Specimen Anatomical Collection Method Collection Time Receive d Time (Source) Location / / Volume Laterality 12/06/2017 10:26 12/06/2017 AM INFORMATION SYSTEMS ARCHITECT 10:26 AM INFORMATION SYSTEMS ARCHITECT Narrative PN SOFT - 12/11/2017 1:11 PM INFORMATION SYSTEMS ARCHITECT Performed at [address] [address] CLIA number [id number] Juaquin Corona MD LAB_1 Performing Organization Address [facility] Phon e Number PN SOFT [address] [place] [address] Pap Test Order (12/06/2017 10:26 AM INFORMATION SYSTEMS ARCHITECT) Analysis Performed At [facility] Time Signature Pap Smear Collected PN SOFT Monolayer tracking test Specimen Anatomical Collection Method Collection Time Receive d Time (Source) Location / / Volume Laterality 12/06/2017 10:26 12/07/2017 4:41 AM INFORMATION SYSTEMS ARCHITECT AM INFORMATION SYSTEMS ARCHITECT Narrative PN SOFT - 12/06/2017 10:27 AM INFORMATION SYSTEMS ARCHITECT Performed at [address] [address] CLIA number [id number] Juaquin Corona MD LAB_1 Performing Organization Address [facility] Phon e Number PN SOFT [address] [place] [address] Lipid Panel - LDLD If Trig High [...] Volume Laterality 12/06/2017 12/06/2017 11:2 5 AM INFORMATION SYSTEMS ARCHITECT Narrative PN SOFT - 12/06/2017 12:35 PM INFORMATION SYSTEMS ARCHITECT Performed at [facility], [address] [place] [address] CLIA number [id number] Juaquin Corona MD LAB_1 Performing Organization Address [facility] Phon e Number PN SOFT [address] [place] [address] Glucose (12/06/2017) P athologist Signature Lab Glucose 96 70 - 100 PN SOFT mg/dL Comment: The stated glucose range is for the fast ing state. Non-fasting glucose range is 70-180 mg/d L Specimen (Source) Anatomical Collection Method Collection Time Re ceived Time Location / / Volume Laterality 12/06/2017 12/06/2017 11:2 5 AM INFORMATION SYSTEMS ARCHITECT Narrative PN SOFT - 12/06/2017 12:35 PM INFORMATION SYSTEMS ARCHITECT Performed at [facility], [address] [place] [address] CLIA number [id number] Juaquin Corona MD LAB_1 Performing Organization Address City/[facility] Phon e Number PN SOFT [address] [place] [address] documented in this encounter Visit Diagnoses Diagnosis [...] facility documented in this encounter Care Teams Bid Analyst Relationship Specialty Start Date End Date Roselyn Marroquin PA-C PCP - General Physician Shoe Cutter 08/09/16 [address] [place] [address] documented as of this encounter
--- OUTSIDE RECORDS SUMMARY | 2022-08-08 19:09 | XMS_ITS | Encounter Summary ---
:1985 Author Organization [employer] Address [address], [place] [address] Care Team Providers Name Role Phone Roselyn Marroquin PA-C Primary Care Provider Reason for Visit Reason Comments Procedure colposcopy Encounter Details Date Type Department Care Team Description 12/25/2017 Procedure Visit [facility] Igor Kaufman Procedure Services-CHANNELER MD Tucker (colposcopy) [address] [place] [address] [place], [place] [phone] (Wo rk) [address] [phone] Social History Tobacco Use Types Packs/Day Years [...] Patient notified. Pap/HPV advised in 1 year START TEACHER Igor Kaufman - 12/25/2017 1:00 PM CST [...] findings. Post biopsy instructions given to patient. START TEACHER documented in this encounter Plan of Treatment Not on filedocumented as of this encounter Procedures Procedure Name Priority Date/Time Associated Comments Diagnosis CLINIC OBTAINED Routine 12/25/2017 1:27 PM Pap smear of cervix Results for this ANATOMICAL PATHOLOGY HEADSTART TEACHER with ASCUS, cannot p rocedure are in exclude HGSIL the results section. SURGICAL [facility] Routine 12/25/2017 6:00 AM Sandra nicholas for this NICOLLET HEADSTART TEACHER procedure are i n the results section. documented in this encounter Results Clinic Obtained Tissue [TIS] (12/25/2017 1:27 PM HEADSTART TEACHER) athologist Signature CLINIC Received PN SOFT OBTAINED TISSUE Specimen Anatomical Collection Method Collection Time Receive d Time (Source) Location / / Volume Laterality 12/25/2017 1:27 PM 8 6:26 HEADSTART TEACHER PM HEADSTART TEACHER Narrative PN SOFT - 12/25/2017 6:52 PM HEADSTART TEACHER Performed at [facility], [address] [place] [address] CLIA number [id number] Igor Kaufman MD LAB_1 Performing Organization Address City/State/ZIP Code Phon e Number PN SOFT [address] [place] [address] Pathology Report (12/25/2017 6:00 AM HEADSTART TEACHER) [facility] gist Method Time Signature Path: FINAL SURGICAL PATHOLOGY REPORT PN SOFT Pathology #: [id number] ? Date Obtained: 12/25/2017 ?Date Received: 12/25/2017 DIAGNOSIS: Endocervix, curettage: -No dysplasia or malignancy identified. Comment: Additional tissue levels were examined. The most recent Pap from 12-06-17 (LL [id number]) was interpre griselda as ASC ?? -H and high-risk HPV positive. ??The Pap was reviewed wi th this ?? curettage. ??Continued follow-up per protocol is recomme nded. ?Lashonda HEROZG ? (electronic signatur e) ? 12/27/2017 ??12:2 8 CLINICAL NOTES: ASCUS Pap GROSS DESCRIPTION: Received in formalin labeled ECC is a 1.0 x 0.0 0.3 cm aggr egate of ?? neely-pink tissue admixed with blood-tinged mucous which i s filtered ?? and submitted in one cassette. ? LUNMA MICROSCOPIC DESCRIPTION: The microscopic examination has been performed. Performed at [facility], [address] [place] [address] Specimen Anatomical Collection Method Collection Time Receive d Time (Source) Location / / Volume Laterality OTHER / Unknown 12/25/2017 6:00 AM 2017 6:00 HEADSTART TEACHER AM HEADSTART TEACHER Igor Kaufman MD LAB_1 Performing Organization Address City/State/ZIP Code Phon e Number PN SOFT [address] [place] [address] [phone] documented in this encounter Visit Diagnoses Diagnosis Pap smear of cervix with ASCUS, cannot e xclude HGSIL - Primary Papanicolaou smear of cervix with atypic al squamous cells cannot exclude high grade squamous intraepithelial lesion (ASC-H) documented in this encounter Care Teams Muck Boss Relationship Specialty Start Date End Date Roselyn Marroquin PA-C PCP - General Physician Golf Instructor 08/09/16 [address] [place] [address] documented as of this encounter
--- OUTSIDE RECORDS SUMMARY | 2022-08-08 19:09 | XMS_ITS | Encounter Summary ---
:1985 Author Organization [employer] Address [address] [place] [address] Care Team Providers Name Role Phone LopezVinnyRoselyndonald Lynn PA-C Primary Care Provider Reason for Visit Reason Comments Dental Hygiene cc none Encounter Details Date Type Department Care Team Description 01/18/2018 Office Visit [facility] Mariam Herrera, [facility] [address] [place] [address] Dental Hygiene (cc Dentistry Yardic, Exam none) [address] [place], [place] [id number] Social History Tobacco Use Types Packs/Day Years [...] - 01/18/2018 4:10 PM CDT PROPHY NOTE PROPHY/ASSESSMENT:74770::PROPHY NOTE Collaborative Agreement: ?? Patient consents to [...] 4:57 PM Routine health VARNISH CDT maintenance BTTO-KYUJBITE-TIHW Routine 01/18/2018 4:57 PM Routine health CDT maintenance PROPHYLAXIS-ADULT Routine 01/18/2018 4:57 PM Routine health RECALL CDT maintenance PERIODIC ORAL Routine 01/18/2018 4:57 PM Routine health EVALUATION CDT maintenance 4 MOD EXISTING Routine 01/05/2017 11:00 PM COMPOSITE FILLING CDT 24 ND EXISTING Routine 01/05/2017 11:00 PM COMPOSITE FILLING CDT 24 ND EXISTING Routine 01/05/2017 11:00 PM COMPOSITE FILLING CDT 31 MO EXISTING Routine 01/05/2017 11:00 PM COMPOSITE FILLING CDT 2 O EXISTING COMPOSITE Routine 01/05/2017 11:00 PM FILLING CDT 8 FI EXISTING COMPOSITE Routine 01/05/2017 11:00 PM FILLING CDT 24 ND EXISTING Routine 01/05/2017 11:00 PM COMPOSITE FILLING [...] trauma), without mention of complication Fractured dental confucianism with loss o f material Fractured dental restorative material wi th loss of material Gingivitis, chronic, non-plaque induced Chronic gingivitis, non-plaque induced documented in this encounter Care Teams Cloth Tester Quality Relationship Specialty Start Date End Date Roselyn Marroquin PA-C PCP - General Physician Valve Maker 08/09/16 [address] [place] [address] documented as of this encounter
--- OUTSIDE RECORDS SUMMARY | 2022-08-08 19:10 | XMS_ITS | Encounter Summary ---
:1985 Author Organization [facility] Address [address], [place] [address] Care Team Providers Name Role Phone Unassigned, Provider Primary Care Provider Unavailable Encounter Details Date Type Department Care Team Description 01/07/2009 Routine Igor Burroughs Obstetrics/[place] [address] [facility] [address] [place] [address] [place] [address] [phone] (Wo rk) Social History Tobacco Use Types [...] on filedocumented in this encounter Care Teams Paper Cutting Machine Operator Relationship Specialty Start Date End Date Unassigned, Provider PCP - General 12/01/00 02/17/16 [address] [place] [address] documented as of this encounter
--- OUTSIDE RECORDS SUMMARY | 2022-08-08 19:10 | XMS_ITS | Encounter Summary ---
:1985 Author Organization Counts include 234 beds at the [facility] Address [address] [place] [address] Care Team Providers Name Role Phone Unassigned, Provider Primary Care Provider Unavailable Encounter Details Date Type Department Care Team Description 03/23/2009 PN Conversion Only OTHER CONVERSION [address] [place] [address] Social History Tobacco Use Types Packs/Day Years Used Date Smoking Tobacco: Never Assessed Sex Assigned at Date Recorded Not on file documented as of this encounter Plan of Treatment Not on filedocumented as of this encounter Visit Diagnoses Not on filedocumented in this encounter Care Teams Grades 7 And 8 Visiting Teacher Relationship Specialty Start Date End Date Unassigned, Provider PCP - General 12/01/00 02/17/[address] [place] [address] documented as of this encounter
--- OUTSIDE RECORDS SUMMARY | 2022-08-08 19:10 | XMS_ITS | Encounter Summary ---
:1985 Author Organization [facility] Address [address] [place] [address] Care Team Providers Name Role Phone Unassigned, Provider Primary Care Provider Unavailable Encounter Details Date Type Department Care Team Description 11/08/2011 Lab Visit [facility] [id number] [place] [address] Social History Tobacco Use Types Packs/Day Years Used Date Smoking Tobacco: Never Assessed Sex Assigned at Date Recorded Not on file documented as of this encounter Plan of Treatment Not on filedocumented as of this encounter Procedures Procedure Name Priority Date/Time Associated Diagnosis Comme nts IRON BINDING Routine 11/08/2011 2:03 PM Fatigue Results f or this CAPACITY (INCL FITNESS SPECIALIST procedure are in IRON) the results section. TSH AND FREE T4 Routine 11/08/2011 2:03 PM Fatigue Result s for this (FRT4 IF TSH FITNESS SPECIALIST procedure are i n ABNORM) the results section. VITAMIN D Routine 11/08/2011 2:03 PM Fatigue Results f or this 25-HYDROXY, TOTAL FITNESS SPECIALIST procedure are in the results section. COMPLETE BLOOD Routine 11/08/2011 2:03 PM Fatigue Results for this COUNT-NO DIFF FITNESS SPECIALIST procedure are in the results section. FERRITIN Routine 11/08/2011 2:03 PM Fatigue Results f or this FITNESS SPECIALIST procedure are i n the results section. documented in this encounter Results Ferritin (11/08/2011 2:03 PM FITNESS SPECIALIST) P athologist Signature Ferritin Serum 58 10 - 291 HP CONVERSION ng/mL Specimen Anatomical Collection Method Collection Time Receive d Time (Source) Location / / Volume Laterality 11/08/2011 2:03 PM 2 9:12 FITNESS SPECIALIST PM FITNESS SPECIALIST Arielle Carvajal LAB_1 Performing Organization Address City/State/ZIP Code Phon e Number HP CONVERSION IRON BINDING CAPACITY (INCL IRON) (11/08/2011 2:03 PM FITNESS SPECIALIST) athologist Signature Iron, Serum 126 50 - 165 HP CONVERSION ug/dL Iron Binding 260 250 - 450 HP CONVERSION Capacity ug/dL Iron Saturation 48 20 - 55 % HP CONVERSION Specimen Anatomical Collection Method Collection Time Receive d Time (Source) Location / / Volume Laterality 11/08/2011 2:03 PM 2 9:12 FITNESS SPECIALIST PM FITNESS SPECIALIST Arielle Carvajal LAB_1 Performing Organization Address City/State/ZIP Code Phon e Number HP CONVERSION Hemogram/Plts (11/08/2011 2:03 PM FITNESS SPECIALIST) athologist Signature White Blood Cell 7.2 3.8 [...] Volume Laterality 11/08/2011 2:03 PM 2 2:03 FITNESS SPECIALIST PM FITNESS SPECIALIST Narrative HP CONVERSION - 11/08/2011 2:05 PM FITNESS SPECIALIST Performed at [facility], [address] [place] [address] Arielle Carvajal LAB_1 Performing Organization Address City/State/ZIP [facility] Phon e Number HP CONVERSION Vitamin D 25-Hydroxy, Total (11/08/2011 2:03 PM FITNESS SPECIALIST) athologist Signature Vitamin D 25 Oh 34 20 - 80 HP CONVERSION ng/mL Comment: Deficiency = <20 Adequate ??= 20-29 Preferred = 30-50 Uncertain safety = 51-80 High = >80 Specimen Anatomical Collection Method Collection Time Receive d Time (Source) Location / / Volume Laterality 11/08/2011 2:03 PM 2 9:12 FITNESS SPECIALIST PM FITNESS SPECIALIST Arielle Carvajal LAB_1 Performing Organization Address City/[facility] [address]/ZIP Code Phon e Number HP CONVERSION TSH AND FREE T4 (FRT4 IF TSH ABNORM) (11/08/2011 2:03 PM FITNESS SPECIALIST) P athologist Signature Thyroid 2.21 0.20 - HP CONVERSION Stimulating 4.50 mIU/L Hormone Specimen Anatomical Collection Method Collection Time Receive d Time (Source) Location / / Volume Laterality 11/08/2011 2:03 PM 2 9:12 FITNESS SPECIALIST PM FITNESS SPECIALIST Arielle Carvajal LAB_1 Performing Organization Address City/[facility] [address]/[facility] Phon e Number HP CONVERSION documented in this encounter Visit Diagnoses Diagnosis Fatigue Other malaise and fatigue documented in this encounter Care Teams Tour Production Supervisor Relationship Specialty Start Date End Date Unassigned, Provider PCP - General 12/01/00 02/17/[address] [place] [address] documented as of this encounter
--- OUTSIDE RECORDS SUMMARY | 2022-08-08 19:10 | XMS_ITS | Encounter Summary ---
:1985 Author Organization Counts include 234 beds at the [facility] Address [address] [place] [address] Care Team Providers Name Role Phone Unassigned, Provider Primary Care Provider Unavailable Encounter Details Date Type Department Care Team Description 10/22/1989 PN Conversion Only MANAGING EDITOR [address] [place] [address] Social History Tobacco Use Types Packs/Day Years Used Date Smoking Tobacco: Never Assessed Sex Assigned at Date Recorded Not on file documented as of this encounter Plan of Treatment Not on filedocumented as of this encounter Procedures Procedure Name Priority Date/Time Associated Comments Diagnosis ANC RESULT Routine 10/20/1994 1:10 PM Results f or this CONVERSION DEFAULT LASTER HAND procedure are in ORDER the results section. documented in this encounter Results Anc Result Conversion Default Order (10/20/1994 1:10 PM LASTER HAND) Anatomical Region Laterality Modality Other Specimen (Source) Anatomical Location Collection Method / Collectio n Time Received Time / Laterality Volume Narrative 10/20/1994 1:10 PM LASTER HAND CLINICAL DATA: ?COUGH ONE MONTH FINDINGS: ?LINEAR [...] on filedocumented in this encounter Care Teams Junior Account Executive Relationship Specialty Start Date End Date Unassigned, Provider PCP - General 12/01/00 02/17/[address] [place] [address] documented as of this encounter
--- OUTSIDE RECORDS SUMMARY | 2022-08-08 19:10 | XMS_ITS | Encounter Summary ---
:1985 Author Organization [facility] Address [address] [place] [address] Care Team Providers Name Role Phone Unassigned, Provider Primary Care Provider Unavailable Encounter Details Date Type Department Care Team Description 11/19/2008 PN Conversion Only [facility] [address] [place] [address] Social History Tobacco Use Types Packs/Day Years Used Date Smoking Tobacco: Never Assessed Sex Assigned at Date Recorded Not on file documented as of this encounter Plan of Treatment Not on filedocumented as of this encounter Procedures Procedure Name Priority Date/Time Associated Diagnosis Comme nts US OB >/= 14 WEEKS Routine 11/19/2008 2:08 PM Res ults for this 0 DAYS, SINGLE MAGNETIC OBSERVER procedure are in FETUS the results section. documented in this encounter Results US OB >/= 14 Weeks 0 Days, Single Fetus (11/19/2008 2:08 PM MAGNETIC OBSERVER) Anatomical Region Laterality Modality Pelvis Other Specimen (Source) Anatomical Location Collection Method / Collectio n Time Received Time / Laterality Volume Impressions 11/19/2008 2:08 PM MAGNETIC OBSERVER : ? 1. ?? Single ?live intraut erine measuring 20 weeks 3 days by this ultrasound. ? 2. ?survey is unr emarkable. ??Small nonspecific echogenic intracardiac focus. [id number] Dictating MD BOEWRS, AVERY Ley MD Narrative 11/19/2008 2:08 PM MAGNETIC OBSERVER COMPARISON: ??None. INDICATION: ??Check size and dates. [...] is unremarkable. Small nonspecific echogenic intracardiac focus. [id number]/rr Dictating AVERY CLARK MD Igor Kaufman MD [facility] documented in this encounter Visit Diagnoses Not on filedocumented in this encounter Care Teams Cryogenic Transport Driver Relationship Specialty Start Date End Date Unassigned, Provider PCP - General 12/01/00 02/17/[address] [place] [address] documented as of this encounter
--- OUTSIDE RECORDS SUMMARY | 2022-08-08 19:10 | XMS_ITS | Encounter Summary ---
:1985 Author Organization [facility] Address [address] [address] Care Team Providers Name Role Phone Unassigned, Provider Primary Care Provider Unavailable Encounter Details Date Type Department Care Team Description 12/10/2008 Routine [place] Katty Armstrong RN Obstetrics/Gynecolog y [address] [place], [place] [address] Social History Tobacco Use Types Packs/Day Years Used Date Smoking Tobacco: Never Assessed Sex Assigned at Date Recorded Not on file documented as of this encounter Last Filed Vital Signs Vital Sign Reading Time Taken Comments Blood Pressure 108/48 12/10/2008 3:24 PM SOFTWARE LICENSING SPECIALIST Pulse 72 12/10/2008 3:24 PM SOFTWARE LICENSING SPECIALIST Temperature - - Respiratory Rate 18 12/10/2008 3:24 PM SOFTWARE LICENSING SPECIALIST Oxygen Saturation - - Inhaled Oxygen Concentration - - Weight 61.5 kg (135 lb 9.3 oz) 12/10/2008 3:24 PM SOFTWARE LICENSING SPECIALIST C : 61.5kg Height - - Body Mass Index 22.56 11/26/2008 2:28 PM SOFTWARE LICENSING SPECIALIST documented in this encounter Plan of Treatment Not on filedocumented as of this encounter Visit Diagnoses Not on filedocumented in this encounter Care Teams Pocket Stitcher Relationship Specialty Start Date End Date Unassigned, Provider PCP - General 12/01/00 02/17/16 [address] [place] [address] documented as of this encounter
--- OUTSIDE RECORDS SUMMARY | 2022-08-08 19:10 | XMS_ITS | Encounter Summary ---
:1985 Author Organization [facility] Address [address], [place] [address] Care Team Providers Name Role Phone Unassigned, Provider Primary Care Provider Unavailable Encounter Details Date Type Department Care Team Description 02/04/2009 Routine [place] Katty Armstrong RN Obstetrics/Gynecolog y [address] [place], [place] [address] Social History Tobacco Use Types Packs/Day Years [...] on filedocumented in this encounter Care Teams Director Customer Relationship Specialty Start Date End Date Unassigned, Provider PCP - General 12/01/00 02/17/16 [address] [place] [address] documented as of this encounter
--- OUTSIDE RECORDS SUMMARY | 2022-08-08 19:10 | XMS_ITS | Encounter Summary ---
:1985 Author Organization [facility] Address [address] [place] [address] Care Team Providers Name Role Phone Unassigned, [...] PM R esults for this DISEASE PROBE CRUSHER ASSEMBLER procedure are in the results section. BLOOD GROUP & RH Routine 10/06/2008 3:22 PM Resul ts for this (BLOOD TYPE) CRUSHER ASSEMBLER procedure are i n the results section. ANTIBODY SCREEN Routine 10/06/2008 3:22 PM Result s for this CRUSHER ASSEMBLER procedure are i n the results section. RUBELLA IGG Routine 10/06/2008 3:22 PM Results f or this CRUSHER ASSEMBLER procedure are i n the results section. HIV ANTIBODY Routine 10/06/2008 3:22 PM Results f or this CRUSHER ASSEMBLER procedure are i n the results section. RPR BLOOD Routine 10/06/2008 3:22 PM Results f or this CRUSHER ASSEMBLER procedure are i n the results section. HEP B SURFACE Routine 10/06/2008 3:22 PM Results for this ANTIGEN, NO REFLEX CRUSHER ASSEMBLER procedure are in the results section. COMPLETE BLOOD Routine 10/06/2008 3:22 PM Results for this COUNT-NO DIFF CRUSHER ASSEMBLER procedure are in the results section. URINALYSIS Routine 10/06/2008 2:43 PM Results f or this ROUTINE(MICRO IF POS) CRUSHER ASSEMBLER proced ure are in the results section. URINALYSIS Routine 10/06/2008 2:43 PM Results f or this MICROSCOPIC CRUSHER ASSEMBLER procedure are i n the results section. URINE CULTURE Routine 10/06/2008 2:43 PM Results for this CRUSHER ASSEMBLER procedure are i n the results section. ANATOMICAL PATH Routine 10/06/2008 10:46 Results for this LIQUID BASED AM CRUSHER ASSEMBLER procedure are i n the results section. documented in this encounter Results Sexually Transmitted Disease Probe (10/06/2008 4:34 PM CRUSHER ASSEMBLER) Patholo gist Method Time Signature Sexually SEE TEXT HP CONVERSION Transmitted Disease Probe Comment: Patient: TELLO TERRELL Sexually Trans Disease Probe ?Collected: ??[id number] ??[id number] Source: ENDOCERV ?Processed: ??[id number] ??[id number] ? V Final Report ------ ?[id number] ??[id number] No Chlamydia trachomatis detected by amp lified DNA assay No Neisseria gonorrhoeae detected by amp lified DNA assay [facility] Amplified DNA assay is royce red by the FDA for non-medicolegal diagnostic testing in the adult population. Specimen (Source) Anatomical Collection Method Collection Time Re ceived Time Location / / Volume Laterality 10/06/2008 4:34 PM CRUSHER ASSEMBLER Katty Armstrong RN LAB_1 Performing Organization Address City/State/ZIP Code Phon e Number HP CONVERSION Antibody Screen (10/06/2008 3:22 PM CRUSHER ASSEMBLER) athologist Signature N/O BB NEG No normal HP CONVERSION ANTIBODY range SCREEN Specimen (Source) Anatomical Collection Method Collection Time Re ceived Time Location / / Volume Laterality 10/06/2008 3:22 PM CRUSHER ASSEMBLER Katty Armstrong RN PN BLOOD BANK ORDERS Performing Organization Address City/State/ZIP Code Phon e Number HP CONVERSION (ABNORMAL) Complete Blood Count-No Diff (10/06/2008 3:22 PM CRUSHER ASSEMBLER) [facility] gist Method Time Signature White Blood Cell [...] 32.0 - HP CONVERSION Hemoglobin Conc 36.5 [place] gm/dL RDW 10.9 (L) 11.0 - HP CONVERSION 15.0 % Platelet Count 179 140 - 450 HP CONVERSION k/cmm Specimen (Source) Anatomical Collection Method Collection Time Re ceived Time Location / / Volume Laterality 10/06/2008 3:22 PM CRUSHER ASSEMBLER Katty Armstrong RN LAB_1 Performing Organization Address [facility]/ZIP Code Phon e Number HP CONVERSION Blood Group & Rh (Blood Type) (10/06/2008 3:22 PM CRUSHER ASSEMBLER) athologist Signature BB BLOOD TYPE O POS No normal HP CONVERSION (BLOOD GROUP & range RH) Specimen (Source) Anatomical Collection Method Collection Time Re ceived Time Location / / Volume Laterality 10/06/2008 3:22 PM CRUSHER ASSEMBLER Katty Armstrong RN PN BLOOD BANK ORDERS Performing Organization Address [facility] Code Phon e Number HP CONVERSION Rubella Igg (10/06/2008 3:22 PM CRUSHER ASSEMBLER) athologist Signature Rubella IgG Immune Immune HP CONVERSION Specimen (Source) Anatomical Collection Method Collection Time Re ceived Time Location / / Volume Laterality 10/06/2008 3:22 PM CRUSHER ASSEMBLER Katty Armstrong RN LAB_1 Performing Organization Address [facility]/ZIP Code Phon e Number HP CONVERSION RPR Blood (10/06/2008 3:22 PM CRUSHER ASSEMBLER) P athologist Signature RPR Non Reac Non Reac HP CONVERSION Specimen (Source) Anatomical Collection Method Collection Time Re ceived Time Location / / Volume Laterality 10/06/2008 3:22 PM CRUSHER ASSEMBLER Katty Armstrong RN LAB_1 Performing Organization Address [facility] Code Phon e Number HP CONVERSION HIV Antibody (10/06/2008 3:22 PM CRUSHER ASSEMBLER) P athologist Signature HIV 1/HIV 2 Non Reac Non Reac HP CONVERSION Specimen (Source) Anatomical Collection Method Collection Time Re ceived Time Location / / Volume Laterality 10/06/2008 3:22 PM CRUSHER ASSEMBLER Katty Armstrong RN LAB_1 Performing Organization Address [facility] Code Phon e Number HP CONVERSION Hep B Surface Antigen, No Reflex (10/06/2008 3:22 PM CRUSHER ASSEMBLER) Analysis Performed At Patho logist Time Signature Hep B Surf Ag Negative Negative HP CONVERSION Specimen (Source) Anatomical Collection Method Collection Time Re ceived Time Location / / Volume Laterality 10/06/2008 3:22 PM CRUSHER ASSEMBLER Katty Armstrong RN LAB_1 Performing Organization Address [facility] Code Phon e Number HP CONVERSION (ABNORMAL) Urine Culture (10/06/2008 2:43 PM CRUSHER ASSEMBLER) Patholo gist Method Time Signature Urine Culture SEE TEXT HP CONVERSION (A) Comment: Patient: TELLO TERRELL Culture, Urine ?Collected: ??[id number] ??[id number] Source: Clean Ca ?Processed: ??[id number] ??[id number] ? 1V Final Report ------ ?[id number] ??[id number] 50-100,000 CFU/mL Escherichia coli Susceptibility Testing E COL ??GIANLUCA INTERP: ?S ??AMPICILLIN , AMOX/CLAV ACID, CEFAZOLIN, LEVOFLOXACIN, ?CIPR OFLOXACIN, CEFTRIAXONE, CEFTAZIDIME, GENTAMICIN, ?CEFE PIME, NITROFURANTOIN, TRIMETH-SULFA Specimen (Source) Anatomical Collection Method Collection Time Re ceived Time Location / / Volume Laterality 10/06/2008 2:43 PM CRUSHER ASSEMBLER Katty Armstrong RN LAB_1 Performing Organization Address City/State/ZIP Code Phon e Number HP CONVERSION (ABNORMAL) Urinalysis Routine(Micro If Pos) (10/06/2008 2:43 PM CRUSHER ASSEMBLER) [facility] gist Method Time Signature Turbidity Hazy (A) [...] Specific 1.015 1.005 - 25 HP CONVERSION [place] Specimen (Source) Anatomical Collection Method Collection Time Re ceived Time Location / / Volume Laterality 10/06/2008 2:43 PM CRUSHER ASSEMBLER Katty Armstrong RN LAB_1 Performing Organization Address City/[facility] Code Phon e Number HP CONVERSION (ABNORMAL) Urinalysis Microscopic (10/06/2008 2:43 PM CRUSHER ASSEMBLER) [facility] Method Time Signature White Blood 0-2/HPF 0 - 3 HP CONVERSION Cells Urine Bacteria Urine Moderate (A) None HP CONVERSIO N Epithelial Few Few /HPF HP CONVERSION Cells Crystals Amorph None HP CONVERSION Specimen (Source) Anatomical Collection Method Collection Time Re ceived Time Location / / Volume Laterality 10/06/2008 2:43 PM CRUSHER ASSEMBLER Katty Armstrong RN LAB_1 Performing Organization Address [facility] Code Phon e Number HP CONVERSION Pap Smear (10/06/2008 10:46 AM CRUSHER ASSEMBLER) [facility] gist Method Time Signature PAP Smear SEE TEXT No normal HP CONVERSION Liquid Based range Comment: Patient: TELLO TERRELL ? CERVICAL CYTOLOGY REPORT Pathology # ??[id number] ?Date Obtained: [id number] ? Date Received: [id number] CYTOLOGIC IMPRESSION: Negative for intraepithelial lesion or m alignancy. Verified 10/09/08 by: ??KGM ?(electronic signature) ? LEANN TIONAL DATA LMP: CLINICAL HIST LIQUID BASED PAP CERVICAL SPECIMEN ADEQUACY: ?? Satisfactory. ENDOCERVICAL CELLS: ??Present. Specimen (Source) Anatomical Collection Method Collection Time Re ceived Time Location / / Volume Laterality 10/06/2008 10:46 AM CRUSHER ASSEMBLER Katty Armstrong RN LAB_1 Performing Organization Address City/State/ZIP Code Phon e Number HP CONVERSION documented in this encounter Visit Diagnoses Not on filedocumented in this encounter Care Teams Construction Equipment Overhauler Relationship Specialty Start Date End Date Unassigned, Provider PCP - General 12/01/00 02/17/[address] [place] [address] documented as of this encounter
--- OUTSIDE RECORDS SUMMARY | 2022-08-08 19:10 | XMS_ITS | Encounter Summary ---
:1985 Author [facility] Address [address] [address] Care Team Providers Name Role Phone Unassigned, Provider Primary Care Provider Unavailable Encounter Details Date Type Department Care Team Description 03/18/2009 Routine Igor Burroughs Obstetrics/[place] [address] [facility] [address] [place] [address] [place] [address] [phone] (Wo rk) Social History Tobacco Use Types [...] on filedocumented in this encounter Care Teams Welder Metal Fab Relationship Specialty Start Date End Date Unassigned, Provider PCP - General 12/01/00 02/17/16 [address] [place] [address] documented as of this encounter
--- OUTSIDE RECORDS SUMMARY | 2022-08-08 19:10 | XMS_ITS | Encounter Summary ---
:1985 Author [facility] Address [address] [address] Care Team Providers Name Role Phone Unassigned, Provider Primary Care Provider Unavailable Reason for Visit Reason Comments DANNY MUÑOZ Encounter Details Date Type Department Care Team Description 11/08/2011 Office Visit [facility] Arielle Carvajal (Primary Dx); Medicine Plantar oscart [address] 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
--- OUTSIDE RECORDS SUMMARY | 2022-08-08 19:10 | XMS_ITS | Encounter Summary ---
:1985 Author Organization [facility] Address [address] [address] Care Team Providers Name Role Phone Unassigned, Provider Primary Care Provider Unavailable Encounter Details Date Type Department Care Team Description 02/18/2009 Routine Igor Burroughs Obstetrics/[place] [address] [facility] [address] [place] [address] [place] [address] [phone] (Wo rk) Social History Tobacco Use Types [...] on filedocumented in this encounter Care Teams Privacy Compliance Manager Relationship Specialty Start Date End Date Unassigned, Provider PCP - General 12/01/00 02/17/[address] [place] [address] documented as of this encounter
--- OUTSIDE RECORDS SUMMARY | 2022-08-08 19:10 | XMS_ITS | Encounter Summary ---
:1985 Author Organization Replaced by [facility] Address [address] [place] [address] Care Team Providers Name Role Phone Unassigned, Provider Primary Care Provider Unavailable Reason for Visit Reason Comments Other Encounter Details Date Type Department Care Team Description 10/09/2008 Telephone [place] [facility], Message Other [address] [employer] [place] [address] Social History Tobacco Use Types Packs/Day Years Used Date Smoking Tobacco: Never Assessed Sex Assigned at Date Recorded Not on file documented as of this encounter Progress [employer] [place], Message - 10/09/2008 5:01 PM CST Phone Note filed by [employer] at 02/09/11 [phone] Author: [employer] Service: (none) Author Type: (none) Filed: 02/09/11 1242 Note Time: 10/09/08 1701 Status: Signed Power Engineer: [facility] Pt notified U/C results 50,000-100,000 e.coli. Pt given rx for Macrobid 100mg 1 po BID x 7 days per Lo Puckett SUPERVISOR HOME RESTORATION [employer]ICE. Pt informed abx faxed to pharmacy. Pt verified allergies NKDA Created on 09Oct2008 5:01pm by KIRILL TERRELL TESTAMENT PROFESSOR documented in this encounter Plan of Treatment Not on filedocumented as of this encounter Visit Diagnoses Not on filedocumented in this encounter Care Teams Gymnasium Teacher Relationship Specialty Start Date End Date Unassigned, Provider PCP - General 12/01/00 02/17/[address] [place] [address] documented as of this encounter
--- OUTSIDE RECORDS SUMMARY | 2022-08-08 19:10 | XMS_ITS | Encounter Summary ---
:1985 Author [facility] Address [address], [place] [address] Care Team Providers Name Role Phone Unassigned, Provider Primary Care Provider Unavailable Encounter Details Date Type Department Care Team Description 11/05/2008 Initial Igor Burroughs Obstetrics/[place] [address] [place] [address] [place] [address] [phone] (Wo rk) Social History Tobacco Use Types Packs/Day Years Used Date Smoking Tobacco: Never Assessed Sex Assigned at Date Recorded Not on file documented as of this encounter Last Filed Vital Signs Vital Sign Reading Time Taken Comments Blood Pressure 108/60 11/05/2008 1:16 PM DISPOSAL OPERATOR Pulse - - Temperature - - Respiratory Rate - - Oxygen Saturation - - Inhaled Oxygen Concentration - - Weight 58 kg (127 lb 15.6 oz) 11/05/2008 1:16 PM DISPOSAL OPERATOR C: 58.1kg Height 165.1 cm (5' 5) 11/05/2008 1:16 PM DISPOSAL OPERATOR C: 165.1 cm Body Mass Index 21.3 11/05/2008 1:16 PM DISPOSAL OPERATOR documented in this encounter Plan of Treatment Not on filedocumented as of this encounter Visit Diagnoses Not on filedocumented in this encounter Care Teams Cold Storage Worker Relationship Specialty Start Date End Date Unassigned, Provider PCP - General 12/01/00 02/17/[address] [place] [address] documented as of this encounter
--- OUTSIDE RECORDS SUMMARY | 2022-08-08 19:10 | XMS_ITS | Encounter Summary ---
:1985 Author Organization [facility] Address [address], [place] [address] Care Team Providers Name Role Phone Unassigned, Provider Primary Care Provider Unavailable Encounter Details Date Type Department Care Team Description 03/04/2009 Routine [place] Heri Nesbitt MD Obstetrics/Gynecolog y [address] [facility] [address] [place], [place] [id number] [phone] (Wo rk) Social History Tobacco Use Types [...] on filedocumented in this encounter Care Teams Planing Machine Operator Relationship Specialty Start Date End Date Unassigned, Provider PCP - General 12/01/00 02/17/16 [address] [place] [address] documented as of this encounter
--- OUTSIDE RECORDS SUMMARY | 2022-08-08 19:10 | XMS_ITS | Encounter Summary ---
:1985 Author Organization [facility] Address [address] [place] [address] Care Team Providers Name Role Phone Unassigned, Provider Primary Care Provider Unavailable Reason for Visit Reason Comments Other Encounter Details Date Type Department Care Team Description 03/29/2009 Telephone Igor Burroughs, Oth er Obstetrics/Gynecolog y [address] [place] [address] [place] [address] [phone] (Wo rk) Social History Tobacco Use Types Packs/Day Years Used Date Smoking Tobacco: Never Assessed Sex Assigned at Date Recorded Not on file documented as of this encounter [facility], Message - 03/29/2009 3:56 PM CDT Phone Note filed by [employer] at 02/10/11330 Author: [employer] Service: (none) Author Type: (none) Filed: 02/10/11330 Note Time: 03/29/091555 Status: Signed Cra: [employer] (Resource) Front Line Sx Call Caller Name/Relationship:self Primary Building Mechanic:sabal Symptom or request?pt delivered on 2jun, was in [place] last night because was having pain, advsd pt to be seen by obg in 1-2 days Is appointment scheduled & when? Coding Auditor:urban Schneider call back number:[phone] Is it OK to leave a confidential message on this voicemail? *ECODE~PNSX2 Created on 29Mar2009 3:56pm by RIYA SANTOS On 29Mar2009 4:17pm CHOLO YOON wrote: Please call pt. at [phone], ok to leave msg. Delivered 6 normal vaginal delivery. Low back pain started 03/25. went to ED last night, pain ranging from 4-8. episiotomy pain also. Taking dilaudid 2mg, flexerol and stool softner now. On 29Mar2009 4:27pm IGOR STEVENSON wrote: Spoke with pt. Acknowledged by IGOR STEVENSON on 4:27pm EMBEDDED SOFTWARE ENGINEER documented in this encounter Plan of Treatment Not on filedocumented as of this encounter Visit Diagnoses Not on filedocumented in this encounter Care Teams Auto Body Repair Technician Relationship Specialty Start Date End Date Unassigned, Provider PCP - General 12/01/00 02/17/[address] [place] [address] documented as of this encounter
--- OUTSIDE RECORDS SUMMARY | 2022-08-08 19:10 | XMS_ITS | Encounter Summary ---
:1985 Author Organization [facility] Address [address] [place] [address] Care Team Providers Name Role Phone Unassigned, Provider Primary Care Provider Unavailable Encounter Details Date Type Department Care Team Description 01/07/2009 PN Conversion Only [place] [address] [place] [address] Social History Tobacco Use Types Packs/Day Years [...] Provider PCP - General 12/01/00 02/17/[address] [place] [address] documented as of this encounter
--- OUTSIDE RECORDS SUMMARY | 2022-08-08 19:10 | XMS_ITS | Encounter Summary ---
:1985 Author Organization [facility] Address [address] [place] [address] Care Team Providers Name Role Phone Unassigned, Provider Primary Care Provider Unavailable Encounter Details Date Type Department Care Team Description 01/06/2009 PN Conversion Only [place] [address] [address] [place] [address] Social History Tobacco Use Types Packs/Day Years Used Date Smoking Tobacco: Never Assessed Sex Assigned at Date Recorded Not on file documented as of this encounter Plan of Treatment Not on filedocumented as of this encounter Visit Diagnoses Not on filedocumented in this encounter Care Teams Hotbed Operator Relationship Specialty Start Date End Date Unassigned, Provider PCP - General 12/01/00 02/17/[address] [place] [address] documented as of this encounter
--- OUTSIDE RECORDS SUMMARY | 2022-08-08 19:10 | XMS_ITS | Encounter Summary ---
:1985 Author Organization [facility] Address [address] [place] [address] Care Team Providers Name Role Phone Unassigned, Provider Primary Care Provider Unavailable Encounter Details Date Type Department Care Team Description 02/04/2009 PN Conversion Only [place] Igor Montgomery [address] [facility] [place] [address] [address] [place], [place] [address] (Wo rk) Social History [...] TELLO TERRELL Culture Strep Screen, Throat ?Collected: ??[id number] ??[id number] Source: Throat ?Processed: ??[id number] ??[id number] Final Report ------ ?[id number] ??[id number] No beta hemolytic Strep group A isolated . Specimen (Source) Anatomical Collection Method Collection Time Re ceived Time Location / / Volume Laterality 02/04/2009 2:05 PM CDT Igor Kaufman MD LAB_1 Performing Organization Address City/State/ZIP Code Phon e Number HP CONVERSION documented in this encounter Visit Diagnoses Not on filedocumented in this encounter Care Teams Retail Visual Merchandiser Relationship Specialty Start Date End Date Unassigned, Provider PCP - General 12/01/00 02/17/[address] [place] [address] documented as of this encounter
--- OUTSIDE RECORDS SUMMARY | 2022-08-08 19:10 | XMS_ITS | Encounter Summary ---
:1985 Author Organization [facility] Address [address] [place] [address] Care Team Providers Name Role Phone Unassigned, Provider Primary Care Provider Unavailable Encounter Details Date Type Department Care Team Description 09/30/2008 PN Conversion Only [facility] [address] [place] [address] Social History Tobacco Use Types Packs/Day Years Used Date Smoking Tobacco: Never Assessed Sex Assigned at Date Recorded Not on file documented as of this encounter Plan of Treatment Not on filedocumented as of this encounter Visit Diagnoses Not on filedocumented in this encounter Care Teams Student Finance Specialist Relationship Specialty Start Date End Date Unassigned, Provider PCP - General 12/01/00 02/17/[address] [place] [address] documented as of this encounter
--- OUTSIDE RECORDS SUMMARY | 2022-08-08 19:10 | XMS_ITS | Encounter Summary ---
:1985 Author Organization [facility] Address [address], [place] [address] Care Team Providers Name Role Phone Unassigned, Provider Primary Care Provider Unavailable Encounter Details Date Type Department Care Team Description 03/11/2009 Routine [place] Katty Armstrong RN Obstetrics/Gynecolog y [address] [place], [place] [address] Social History Tobacco Use Types Packs/Day Years [...] Provider PCP - General 12/01/00 02/17/16 [address] [place] [address] documented as of this encounter
--- OUTSIDE RECORDS SUMMARY | 2022-08-08 19:10 | XMS_ITS | Encounter Summary ---
:1985 Author Organization [facility] Address [address] [place] [address] Care Team Providers Name Role Phone Unassigned, Provider Primary Care Provider Unavailable Encounter Details Date Type Department Care Team Description 03/04/2009 [place] [address] [address] [place] [address] [place] [phone] (Wo rk) Social History Tobacco Use Types [...] 2:22 PM CDT) [facility] Time Signature Culture Strep SEE TEXT HP CONVERSION Screen Other Source Comment: Patient: TELLO TERRELL Culture Strep Scr Other Source ?Collected: ??[id number] ??[id number] Source: Vag/Rect ?Processed: ??[id number] ??[id number] ? V Final Report ------ ?[id number] ??[id number] No group A or B Streptococcus isolated Specimen (Source) Anatomical Collection Method Collection Time Re ceived Time Location / / Volume Laterality 03/04/2009 2:22 PM CDT Heri Nesbitt MD LAB_1 Performing Organization Address City/State/ZIP Code Phon e Number HP CONVERSION documented in this encounter Visit Diagnoses Not on filedocumented in this encounter Care Teams Tie Tape Machine Operator Relationship Specialty Start Date End Date Unassigned, Provider PCP - General 12/01/00 02/17/16 [address] [place] [address] documented as of this encounter
--- OUTSIDE RECORDS SUMMARY | 2022-08-08 19:10 | XMS_ITS | Encounter Summary ---
:1985 Author Organization [facility] Address [address] [address] Care Team Providers Name Role Phone Unassigned, Provider Primary Care Provider Unavailable Encounter Details Date Type Department Care Team Description 11/26/2008 Routine Igor Burroughs Obstetrics/[place] [address] [facility] [address] [place] [address] [place] [address] [phone] (Wo rk) Social History Tobacco Use Types Packs/Day Years Used Date Smoking Tobacco: Never Assessed Sex Assigned at Date Recorded Not on file documented as of this encounter Last Filed Vital Signs Vital Sign Reading Time Taken Comments Blood Pressure 102/60 11/26/2008 2:28 PM TABULATING SUPERVISOR Pulse - - Temperature - - Respiratory Rate - - Oxygen Saturation - - Inhaled Oxygen Concentration - - Weight 60.1 kg (132 lb 7.9 oz) 11/26/2008 2:28 PM C: 60 .1kg TABULATING SUPERVISOR Height 165.1 cm (5' 5) 11/26/2008 2:28 PM C: 165.1cm TABULATING SUPERVISOR Body Mass Index 22.05 11/26/2008 2:28 PM TABULATING SUPERVISOR documented in this encounter Plan of Treatment Not on filedocumented as of this encounter Visit Diagnoses Not on filedocumented in this encounter Care Teams International Nurse Relationship Specialty Start Date End Date Unassigned, Provider PCP - General 12/01/00 02/17/[address] [place] [address] documented as of this encounter
--- OUTSIDE RECORDS SUMMARY | 2022-08-08 19:10 | XMS_ITS | Encounter Summary ---
:1985 Author Organization [facility] Address [address], [place] [address] Care Team Providers Name Role Phone Unassigned, Provider Primary Care Provider Unavailable Encounter Details Date Type Department Care Team Description 10/06/2008 PN Conversion Only [place] CONVERSION Katty Armstrong , RN Social History Tobacco Use Types Packs/Day Years Used Date Smoking Tobacco: Never Assessed Sex Assigned at Date Recorded Not on file documented as of this encounter Plan of Treatment Not on filedocumented as of this encounter Visit Diagnoses Not on filedocumented in this encounter Care Teams Printed Circuit Photographer Relationship Specialty Start Date End Date Unassigned, Provider PCP - General 12/01/00 02/17/[address] [place] [address] documented as of this encounter
--- OUTSIDE RECORDS SUMMARY | 2022-08-08 19:10 | XMS_ITS | Encounter Summary ---
:1985 [facility] Address [address], [place] [address] Care Team Providers Name Role Phone Unassigned, Provider Primary Care Provider Unavailable Encounter Details Date Type Department Care Team Description 10/06/2008 Initial Katty Odom, RN Obstetrics/Gynecolog y [address] [place] [address] Social History Tobacco Use Types Packs/Day Years Used Date Smoking Tobacco: Never Assessed Sex Assigned at Date Recorded Not on file documented as of this encounter Last Filed Vital Signs Vital Sign Reading Time Taken Comments Blood Pressure 90/70 10/06/2008 2:29 PM BEREAVEMENT PROGRAM COORDINATOR Pulse - - Temperature - - Respiratory Rate - - Oxygen Saturation - - Inhaled Oxygen Concentration - - Weight 57.2 kg (125 lb 15.9 oz) 10/06/2008 2:29 PM C: 5 7.2kg BEREAVEMENT PROGRAM COORDINATOR Height 165.1 cm (5' 5) 10/06/2008 2:29 PM C: 165.1cm BEREAVEMENT PROGRAM COORDINATOR Body Mass Index 20.97 10/06/2008 2:29 PM BEREAVEMENT PROGRAM COORDINATOR documented in this encounter Progress Notes Katty Armstrong APRN, CNP - 10/06/2008 12:01 AM CST Progress Notes signed by Katty Armstrong APRN, CNP at 10/08/08 0821 Author: BALAJI Kwan Service: (none) Author Type: Nurse Practitioner Filed: 02/11/11 0917 Note Time: 10/06/08 0001 Status: Signed Bufferer: BALAJI Kwan (Nurse Practitioner) New OB visit Subjective: Betty is a 23 year old female who presents to clinic for new OB exam. LMP sometime in early 06/29. She also had one day of very light spotting in early July. Menstrual interval of 28 days. Positive testing the first week of August. She was seen [facility] and had an non-diagnostic [...] and pneumothorax. Had varicella as a child. building services technician history: Patient is a . Denies history of abnormal pap smears or STDs. 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 She is not , but the [...] 45 minutes, total education time 30. *SH~DNS~newOB AVEMENT PROGRAM COORDINATOR documented in this encounter Plan of Treatment Not on filedocumented as of this encounter Visit Diagnoses Not on filedocumented in this encounter Care Teams Scissors Grinder Relationship Specialty Start Date End Date Unassigned, Provider PCP - General 12/01/00 02/17/[address] [place] [address] documented as of this encounter
--- OUTSIDE RECORDS SUMMARY | 2022-08-08 19:10 | XMS_ITS | Encounter Summary ---
:1985 Author Organization [facility] Address [address] [place] [address] Care Team Providers Name Role Phone Unassigned, Provider Primary Care Provider Unavailable Encounter Details Date Type Department Care Team Description 05/04/2009 Office Visit Katty Odom, RN Obstetrics/Gynecolog y [address] [place] [address] Social History Tobacco Use Types Packs/Day Years [...] in this encounter Progress Notes Katty Armstrong, CODING SPECIALIST, ENGRAVER ORNAMENTAL DESIGN - 05/04/2009 12:01 AM CDT Progress Notes signed by BALAJI Kwan at 05/04/09 1254 Author: BALAJI Kwan Service: (none) Author Type: Nurse Practitioner Filed: 02/11/11 1441 Note Time: 05/04/09 0001 Status: Signed Industrial Roofer: BALAJI Kwan (Nurse Practitioner) Post- Visit SUBJECTIVE: [...] updated today [facility]. Medications: Reviewed and updated today on [facility]. Tobacco: None. OBJECTIVE: Blood Pressure: 110/70 Height: 65 inches Current Weight: 123 pounds General: Well-developed, well-nourished, and in no apparent distress. Abdomen: Soft, nontender without organomegaly, masses, hernias or inguinal adenopathy. Pelvic: External Genitalia: Normal without lesions. Perineum: Well healed without granulation tissue or tenderness. Bartholin's glands, urethra, Hazel's 9glands without lesions. Vagina: Bl[place], moist and without lesions. Cervix: :Without lesions. [...] on filedocumented in this encounter Care Teams Offal Worker Relationship Specialty Start Date End Date Unassigned, Provider PCP - General 12/01/00 02/17/[address] [place] [address] documented as of this encounter
--- OUTSIDE RECORDS SUMMARY | 2022-08-08 19:10 | XMS_ITS | Encounter Summary ---
:1985 Author Organization [facility] Address [address], [place] [address] Care Team Providers Name Role Phone Unassigned, [...] on filedocumented in this encounter Care Teams Hand Tool Lapper Relationship Specialty Start Date End Date Unassigned, Provider PCP - General 12/01/00 02/17/16 [address] [place] [address] documented as of this encounter
--- NOTE | 2022-08-08 22:44 | P.LDBA_ITS ---
Subjective History of Present Illness Date Seen: 08/08/22 Narrative: Patient is being admitted to Labor and Delivery for labor. She is a 36 year old woman at 38 5/7 weeks gestation. She presented this evening with infrequent contractions, but then went on to have cervical change. Specific Issues/Plans Blood type: O+ Finance: Wero Timmons. At home: Jose Donato(08/31/21). Baby: Girl (surprise name). 1.? AMA Level 2 ultrasound: Normal 04/12/22 Maternity T21:? Declined 2.? Tobacco use 10/day Declined nicotine replacement products or Wellbutrin at 1st visit 3.? Induction of labor for suspected preeclampsia with last .? Proteinu saad, blood pressures normalized Baseline pre E labs: all normal. pr/cr ratio: 0.14 Daily 81 mg aspirin recommended through 36 weeks gestation 3.? Short interval . Last delivery 08/31/2021? 4.? Late to care - NOB @ 15.1 5. Failed 1 hr GTT. Scheduled 3hr gtt 06/12/22: passed 3 hour (3/4 numbers normal) 6. Shoulder dystocia, 20 seconds, with second delivery. TDAP: 06/09/22 Her full history and physical was dictated by Megan Peterson on 08/04/22. Please see this for details. OB - H&P: Exam Physical Exam: Vital signs: Pulse BP Pulse Ox 81 127/78 97 08/08/22 19:55 08/08/22 19:55 08/08/22 19:26 Narrative: General: Pleasant, no acute distress Heart: Regular rate and rhythm, no murmur or gallop Lungs: Clear to auscultation bilaterally Abdomen: Soft, nontender, gravid, cephalic, EFW 7 lb by Kayden's Lower extremities: No edema or erythema SVE: 6.5 / 90 / 0 / bulging bag of water tracing: Baseline 130/ accels present / no decelerations / moderate variability OB - Problem Based A/P Additional Plan (1) : Status: Acute Plan: 36-year-old A4K1-5-1-4 woman at 38 weeks, 5 days gestation in active labor. Despite advanced cervical dilation, she is feeling fairly comfortable, and contractions are not very frequent. Reassuring status with category 1 tracing GBS negative (2) H/O shoulder dystocia in prior , currently : Status: Acute Plan: Last infant was 7 lb, 15 oz. Plan Membranes stripped at time of cervical exam. She is interested in AROM, but prefers epidural 1st. I suspect her labor will progress quickly after rupture of membranes.
[2022-08-08 22:53] LABS: SARS PCR* Negative SARS-CoV-2 (Negative)
[2022-08-08] MEDS: LACTATED RINGERS 1000 ML 1,000 ML 999 ML IV (23:30)
[2022-08-08] MEDS: ROPIVACAINE 0.2% 100 ml 100 ML 12 MG EPIDURAL (23:53)
[2022-08-08] MEDS: ROPIVACAINE 0.2 % PF 10 ML INJ 20 MG EPIDURAL (23:54)
[2022-08-08] MEDS: LIDOCAINE 2% (PF) 5 ML VIAL EPIDURAL (23:54)
[2022-08-09] VITALS (35 sets, daily range): BP systolic 100–159; BP diastolic 56–84; PULSE 62–97; RESP 14–16; TEMP 36.3–36.9; O2SAT 95–99
--- NOTE | 2022-08-09 00:01 | P.ANBPRC_ITS ---
[facility] Medical History (Updated 08/08/22 @ 23:04 by Victoria Bach MD) H/O shoulder dystocia in prior , currently Social History (Updated 05/25/22 @ 15:09 by Christiano Boothe) Narrative: tobacco use Smoking Status: Current every day smoker Meds Home Medications and Allergies Home Medications Medication Instructions Recorded Confirmed Type prenat.vits,eusebio,keq-ssga-ubfqe 1 tab PO QDAY 05/26/22 08/06/22 History acetaminophen 500 mg tablet mg PO .Every 6 Hours PRN 06/30/22 07/28/22 History Allergies Allergy/AdvReac Type Severity Reaction Status Date / Time nitrofurantoin AdvReac Intermediate Hives Verified 08/06/22 04:23 Results Labs Labs: Laboratory Results - last 24 hr 08/08/22 21:59 SARS-CoV-2 (PCR) Negative SARS-CoV-2 Vital Signs Vital Signs: Last Vital Signs Pulse 87 08/09/22 00:01 BP 116/68 08/09/22 00:01 Pulse Ox 98 08/08/22 23:55 Weight: 69.445 kg Height: 167.64 cm Anesthesia Procedures Epidural Insertion Patient Location: OB Start Time: 23:25 Stop Time: 00:05 Start Date: 08/09/22 Stop Date: 08/09/22 Reason for Block: procedure for pain Patient Position: sitting Performed By: Justo Pretty Preanesthetic Checklist: IV checked, risks and benefits discussed, surgical consent, monitors and equipment checked, pre-op evaluation, timeout performed and anesthesia consent Prep: chlorhexidine gluconate Monitoring: blood pressure monitoring, continuous pulse oximetry and heart rate Approach: midline Vertebral Space: lumbar (1-5) Needle Type: Tuohy needle Injection Technique: continuous catheter Needle gauge: 17 Needle Length (cm): 10 cm Needle Insertion Depth (cm): 7 Catheter Gauge: 19 Catheter Type: multi-orifice Catheter at skin depth (cm): 13 Test Dose Result: negative and lidocaine 1.5% with epinephrine 1 to 200,000 Intrathecal Start Time: 23:25 Stop Time: 00:03 Start Date: 08/09/22 Stop Date: 08/09/22 Performed By: Justo Pretty Needle gauge: 17
[2022-08-09] MEDS: LACTATED RINGERS 1000 ML 1,000 ML 125 ML IV (00:31)
--- NOTE | 2022-08-09 02:31 | PM.OBPNL ---
Subjective Date Seen: 08/09/22 Narrative: Betty had an epidural. She is feeling comfortable when I enter Objective Vital Signs: Last Vital Signs Temp 97.6 F 08/09/22 01:09 Pulse 66 08/09/22 02:28 BP 103/68 08/09/22 02:28 Pulse Ox 98 08/09/22 00:57 Pelvic Exam Dilation (cm): 9 Effacement (%): 100 Station: 0 Comments: Gen - NAD SVE - 9 cm, with cervical lip on patient's right and posterior AROM for clear fluid Contractions Contraction Frequency: not registering well on toco Assessment Assessment: active labor Status: Category ll (Baseline 125. Deceleration for 4-5 minutes into 110s with intermittent increases to 120s after AROM, then reestablishes in 120s. Moderate variability. ) Plan Plan: Reposition Betty to promote optimum positioning . Anticipate .
[2022-08-09] MEDS: miSOPROStoL 800 MCG/4 TABLET PR (03:55)
--- NOTE | 2022-08-09 04:08 | P.OBPRC_ITS ---
Procedure Procedure Done: [facility] Procedure Details: The patient is a 36 year-old G 3 P 2-0-0-2 woman admitted on 08/08/2022 at 38 Weeks, 5 Days gestation for labor.? Cervical exam on admission was 6 cm/80 % effaced/-1 station with membranes intact in vertex presentation.? Contractions were less than every 5 minutes.? heart rate demonstrated baseline 130 bpm with moderate variability, positive accelerations, no decelerations; a category 1 tracing.? Labor onset: 10:00 p.m. 08/08/2022 ? Labor Analgesia:? Epidural, placed prior to AROM AROM occurred on 08/09/2022 at 2:18 a.m. with clear fluid. ? Pitocin:? No ? Complete:? 3:24 a.m. ? Pushing:? 3:31 a.m. ? heart tones during second stage were reassuring. ? At 3:47 a.m. a viable female infant delivered in vertex JEAN-PIERRE presentation with restitution to LOT over intact perineum via spontaneous vaginal delivery.? Infant was placed on maternal abdomen.? Cord was clamped and cut after a 60 second delay.? Nose and mouth were bulb suctioned.? weight pending.? 8 at 1 minute and 9 at 5 minutes.? Shoulder dystocia: No.? Nuchal cord: No. ? Placenta delivered spontaneously and complete at 3:51 a.m. with a 3 vessel cord. ? Mother and were stable after delivery. ? Lacerations:? None ? Blood loss: 125 mL. Blood loss measurement type: QBL ? Sponge and needles counts are correct.
[2022-08-09] MEDS: IBUPROFEN 600 MG TABLET PO ×3 (06:34→18:40)
[2022-08-09] MEDS: DOCUSATE SODIUM 100 MG CAPSULE PO (09:21)
[2022-08-09] MEDS: ACETAMINOPHEN 500 MG TABLET 1000 MG PO ×3 (09:21→21:23)
[2022-08-10] MEDS: IBUPROFEN 600 MG TABLET PO ×2 (01:14→07:18)
[2022-08-10 01:15] VITALS: BP 118/78; PULSE 62; RESP 16; TEMP 36.3; O2SAT 97
[2022-08-10] MEDS: ACETAMINOPHEN 500 MG TABLET 1000 MG PO (04:14)
[2022-08-10 04:17] VITALS: BP 125/82; PULSE 60; RESP 16; TEMP 36.3; O2SAT 97
[2022-08-10 07:25] LABS: Hemoglobin* 12.3 gm/dL (12.0-16.0)
[2022-08-10 08:20] VITALS: BP 126/85; PULSE 67; RESP 16; TEMP 36.4; O2SAT 98
--- NOTE | 2022-08-10 08:28 | P.DS_ITS ---
DS: Providers Provider Date Seen: 08/10/22 Date of admission: 08/08/22 22:00 Primary care physician: Victoria Bach MD Admitting Clinician: Victoria Bach MD Attending Physician on discharge: Norah Boggs CNM DS: Diagnosis Discharge Diagnosis (1) care and examination immediately after delivery: Status: Acute (2) Advanced maternal age (AMA) in : Status: Inactive (3) Nicotine use: Status: Acute (4) Normal spontaneous vaginal delivery: Status: Acute Exam Const: Vital Signs, click to edit/add: Vital Signs - 24 hr 08/09/22 12:02 08/09/22 17:08 08/09/22 19:41 Temperature 97.6 F 97.3 F L 97.4 F L Pulse Rate [Pulse Oximeter] 73 65 97 Respiratory Rate 14 14 16 Blood Pressure [Le ft Arm] 115/73 107/70 113/70 Pulse Oximetry 96 97 97 Oxygen Delivery Me thod Room Air Room Air Room Air 08/10/22 01:15 08/10/22 04:17 Temperature 97.4 F L 97.4 F L Pulse Rate [Pulse Oximeter] 62 60 Respiratory Rate 16 16 Blood Pressure [Le ft Arm] 118/78 125/82 Pulse Oximetry 97 97 Oxygen Delivery Me thod Room Air Room Air Documenting provider has reviewed patient's vital signs: yes Common normals: no apparent distress, oriented x3, healthy appearing and alert HENMT: Common normals: normocephalic Head and scalp: normocephalic Neck & C-Spine: Common normals: full ROM and supple Chest: Common normals: inspection of chest normal Resp: Common normals: normal respiratory effort and clear to auscultation bilaterally Auscultation: clear to auscultation bilaterally Cardio: Common normals: regular rate and regular rhythm Rate: regular rate Rhythm: regular rhythm GI: Common normals: soft to palpation Palpation: soft : OB/external & speculum: Yes external exam normal Uterus: U/1 Lochia: scant Back & Pelvis: Common normals: thoracic and lumbar spine normal to inspection Extremity: Common normals: normal to inspection and full ROM Neuro: Common normals: oriented x3 Sensorium/orientation: alert Speech: speech normal Psych: Common normals: mental status grossly normal, thought process normal, speech normal and activity/motor behavior normal Speech: normal speech Thought process: normal thought process Skin: Common normals: no rashes or lesions noted General skin exam: no rashes or lesions noted OB - DS: Summary Hospital Course Hospital Course: The patient is a 36 year old G 3 P 3 at 38 6/7 weeks gestation that was admitted to the Center on 08/08/22 for spontaneous onset of labor. She had an uncomplicated vaginal delivery. She delivered a viable female . She is bottle feeding. the patient has done well. She is voiding, passing flatus, and ambulating independently. Peripartum Data delivery method: Vaginal Laceration description: None complications: none [place] Gender: Female Infant Discharge Plan: Home Status at Discharge Functional status at discharge: independent ambulation Overall status at discharge: patient is progressing back to baseline Time Spent with Patient Time attestation: Total time spent providing and/or coordinating discharge services: Discharge Plan Discharge Disposition: Home, Self-Care Date of Admission: 08/08/22 22:00 Attending Provider on Discharge: Norah Boggs Primary Care Provider: Victoria Bach Condition: Stable Anticipated Discharge Date/Time: 08/10/22 09:00 Discharge Medications: New acetaminophen 500 mg Tablet 1,000 mg PO Q6H PRNQty: 0 0RF docusate sodium 100 mg Capsule 100 mg PO DAILY Qty: 90 0RF ibuprofen 600 mg Tablet 600 mg PO Q6H PRNQty: 60 0RF Continued prenat.vits,eusebio,[id number] Tablet 1 tab PO QDAY nicotine 10 mg cartridge 1 inh inhalation 4-6XD PRN (Reason: nicotine cravings) Qty: 168 0RF Discontinued acetaminophen 500 mg tablet PO .Every 6 Hours PRN Rx Instructions: NO MORE THAN 4000 MG/DAY Discharge Orders: Discharge Order (Routine); Ordered 08/10/22 Ordered By: Norah Boggs Patient Education: OB Vaginal/Bottle Feeding Additional Instructions: Discharge instructions were reviewed with the patient including signs and symptoms of infection and home going medications Nothing vaginally for 6 weeks: no tampons or intercourse Off Work or School for 6 weeks Optional 2-week visit: discuss infant feeding concerns, review control options and screen for anxiety/depression. 6-week visit for an annual exam. consultation services are available to all mothers and babies for the first year after delivery.? To make an appointment, please call [phone]. Follow Up Appointments: [facility] [Provider Group] (Return at 2 and 6 weeks ) Forms: [employer] Info Instructions
[2022-08-10] MEDS: DOCUSATE SODIUM 100 MG CAPSULE PO (09:21)
== END 2022-08-10 09:20 | disposition home or self-care (01) | DRG 560 ==
LOC: OB OUT 22:13 → OB 22:13
PROVIDERS: Admitting Provider Obstetrics & Gynecology; PCP Obstetrics & Gynecology; Visit Provider Obstetrics & Gynecology
DX: O99.334 Smoking (tobacco) complicating childbirth (principal); F17.210 Nicotine dependence, cigarettes, uncomplicated; Z3A.38 38 weeks gestation of pregnancy; Z37.0 Single live birth
CPT/HCPCS: 01967; 36415; 85018; 87635; A9270; J2795; J7120

== ENCOUNTER 2023-01-04 14:15 | Outpatient (CLI) | payer BC, SELFPAY | END 2023-01-04 14:16 | disposition home or self-care (01) | LOC: NFLDREF 01-06 05:53 | PROVIDERS: PCP Obstetrics & Gynecology; Referring Provider Obstetrics & Gynecology; Visit Provider Family Medicine | DX: R82.998 Other abnormal findings in urine (principal); N39.0 Urinary tract infection, site not specified; L98.9 Disorder of the skin and subcutaneous tissue, unspecified; B36.0 Pityriasis versicolor | CPT/HCPCS: 87086; 87186 ==